=== PATIENT | female | born 1975 | race Asian ===

== ENCOUNTER 2020-01-04 16:39 | Outpatient (REF) | payer MEDICARE, SELFPAY ==
[2020-01-04 19:56] LABS: ALT 11 U/L (14-59); AST 15 U/L (15-37); Albumin 3.5 g/dL (3.4-5.0); Alkaline Phosphatase 89 U/L (46-116); Anion Gap 10.1 mmol/L (3-11); BUN 11 mg/dL (7-18); Bilirubin, Total 0.4 mg/dL (0.2-1.0); CO2 26.9 mmol/L (21.0-32.0); CREATININE 0.78 mg/dL (0.55-1.02); Calcium 8.4 mg/dL (8.5-10.1); Chloride 103 mmol/L (98-107); Glucose 218 mg/dL (74-106); Potassium 3.6 mmol/L (3.5-5.1); Sodium 140 mmol/L (136-145); Total Protein 7.1 g/dL (6.4-8.2)
[2020-01-04 20:08] LABS: Calculated LDL 127 mg/dL (<100); Cholesterol 195 mg/dL (<200); HDL Cholesterol 38 mg/dL (40-60); Triglyceride 152 mg/dL (<150)
== END 2020-01-04 16:59 ==
LOC: NCHCN 16:39
PROVIDERS: PCP Nurse Practitioner Family; Visit Provider Nurse Practitioner Family
DX: I10 Essential (primary) hypertension (principal); Z13.220 Encounter for screening for lipoid disorders
CPT/HCPCS: 80053; 80061

== ENCOUNTER 2020-01-18 20:39 | Emergency (ER) | payer MEDICARE, OTHER, SELFPAY ==
--- NOTE | 2020-01-18 20:42 | ED.GENADUL_ITS ---
Discharge Plan Disposition Patient Disposition: HOME Condition: Stable Discharge Details Chief Complaint: GenMedical Clinical Impression: Encounter for medication refill Primary Care Provider: None,None ED Provider: Lashanda Villagomez Meds and New Rx's Prescriptions: No Action lisinopril 20 mg Tablet 20 mg DAILY RF: 0 Januvia 100 mg Tablet 100 mg DAILY RF: 0 divalproex [Depakote] 250 mg Tablet,Delayed Release (Dr/Ec) 250 mg PO QAM RF: 0 sertraline [Zoloft] 100 mg Tablet 200 mg PO QAM RF: 0 divalproex [Depakote] 500 mg Tablet,Delayed Release (Dr/Ec) 1,000 mg PO QHS RF: 0 risperidone [Risperdal] 2 mg Tablet 2 mg BID RF: 0 amoxapine 100 mg Tablet 100 mg PO DAILY RF: 0 dextroamphetamine-amphetamine [Adderall XR] 10 mg Capsule,Extended Release 24hr 10 mg PO DAILY RF: 0 prazosin 2 mg Capsule 2 mg PO QHS RF: 0 melatonin 10 mg Tablet 10 mg PO QHS RF: 0 Discharge Instructions Additional Instructions: Please stay in touch with any connections regarding insurance. Care management will be in touch regarding follow-up with primary care. If you develop new or worsening symptoms please seek care urgently once again. Medical Decision Making Patient is a 44-year-old female presenting today with request for medication refill. She reports that she moved to the area the beginning of December. Is requesting refill of her amoxapine, Adderall, Depakote, lisinopril, melatonin, prazosin, Risperdal, Zoloft, Januvia. States she last took her med patient's today although she reported to nursing staff a difficult time. She reports she moved here from [place] and that her psychologist advised her she will comes to the emergency department for evaluation of the time for medication refill that we would do so. I reviewed the PDMP and patient last filled her medication on 11/01/2019. However, she reports that she was taking her medication up till today. Patient only received a 30-day supply at that time. Had also been receiving prescriptions for lorazepam while in [place]. This too was last filled last fall. When I approached patient with this information, she advised that her mother had filled the prescription and mailed to her. However, she reports that the medication was actually prescribed to her that the mother simply picked up this prescription from the pharmacy since patient has been residing in [place]. She reports that she continues to be in close contact with her psychologist and seems very frustrated regarding their recent communications. On exam, patient appears very anxious. She is disheveled. Her history is slightly nonsensical and inconsistent. I am hesitant for this reason to fill the patient's medications as I believe it is been longer since she last received them I am concerned starting the medications at full dose. I prefer that this is followed up promptly with primary care may be able to better monitor the patient when starting or stopping these medications. History is also slightly confusing do not feel that refilling these medications based on the patient's history is appropriate at this time. Plan to consult with care management to discuss follow-up options as well as other resources that may be available to be homeless couple. Care management spoke with the patient and her . She did discuss what services are available locally. She has contact information. She did review the patient's chart and saw that she has an appointment on the of this month with Dr. vincent but no note is able to be viewed. Unclear if this patient patient no showed the appointment. Patient will be in contact with [facility] regarding mental health care. She will also follow-up with community connections regarding Ms. Xie. Care management is going to be helping arrange for prompt follow-up with primary care and may discuss medication management and chronic issues further. She is given return precautions. All of their questions and concerns were addressed and they are agreement this plan. HPI General Mode of arrival: ambulatory . Date/Time Provider Initiated Documentation: 01/18/20 20:42 . Limitations to Documentation: no limitations . Information obtained by: patient, family and RN notes reviewed . HPI Narrative: Patient is a 44-year-old female, coming by her , with chief complaint of medication refill. Patient has a lengthy list of medications which she reports she has not had over the past 1 4 hours as she ran out. Patient is currently homeless. Moved here from [place] the first week in December. She reports that she had spoken with her psychologist about her medications and that they advised that she be seen in the emergency department at the time she runs out of her medications as we would provide refills for her. Patient reports she is currently feeling well but is concerned regarding her medication refill and potential symptoms associated with not having these Related Data Home Medications Medication Instructions Recorded Confirmed amoxapine 100 mg PO DAILY 01/18/20 01/18/20 dextroamphetamine-amphetamine 10 mg PO DAILY 01/18/20 01/18/20 [Adderall XR] divalproex [Depakote] 1,000 mg PO QHS 01/18/20 01/18/20 divalproex [Depakote] 250 mg PO QAM 01/18/20 01/18/20 lisinopril 20 mg DAILY 01/18/20 01/18/20 melatonin 10 mg PO QHS 01/18/20 01/18/20 prazosin 2 mg PO QHS 01/18/20 01/18/20 risperidone [Risperdal] 2 mg BID 01/18/20 01/18/20 sertraline [Zoloft] 200 mg PO QAM 01/18/20 01/18/20 sitagliptin [Januvia] 100 mg DAILY 01/18/20 01/18/20 Allergies Allergy/AdvReac Type Severity Reaction Status Date / Time amoxicillin Allergy Nausea Unverified 01/18/20 21:06 bee pollen Allergy Hives Unverified 01/18/20 21:06 fluoxetine [From Prozac] Allergy Nausea Unverified 01/18/20 21:06 hazelnut Allergy Hives Unverified 01/18/20 21:06 abelox Allergy Hives Uncoded 01/18/20 21:06 Review of Systems Constitutional Constitutional: Reports as per HPI, Denies chills, Denies fatigue, Denies fever(s), Denies headache(s) and Denies weakness Eyes Eyes: Denies change in vision ENT Ears, Nose, Mouth, and Throat: Denies headache(s) Cardiovascular Cardiovascular: Reports as per HPI, Denies chest pain, Denies lightheadedness, Denies dyspnea and Denies dyspnea on exertion Respiratory Respiratory: Reports as per HPI, Denies cough, Denies dyspnea and Denies dyspnea on exertion Gastrointestinal Gastrointestinal: Reports as per HPI, Denies abdominal pain, Denies change in bowel habits, Denies nausea and Denies vomiting Musculoskeletal Musculoskeletal: Denies abnormal gait Integumentary/Breasts Skin/Breast: Reports as per HPI and Denies rash Neurologic Neurologic: Denies abnormal movements, Denies abnormal speech, Denies abnormal gait, Denies headache(s), Denies paresthesias and Denies weakness Endocrine Endocrine: Denies fatigue [facility] Social History Smoking/Tobacco Use Status: Current every day Tobacco Type: cigarettes Alcohol Intake: never Substance use type: does not use Do you feel safe at home: Yes Do you feel safe in your relationship?: Yes Exam Const General: cooperative, healthy appearing, comfortable, no acute distress, well developed, well groomed and anxious Nutritional Appearance: average body habitus and well nourished Orientation: alert and awake Eyes General: appearance normal, both eyes and all related structures Resp Effort & Inspection: normal respiratory effort, able to speak in complete sentences and no respiratory distress Cardio Rate: regular rate Rhythm: regular rhythm Skin General skin exam: no rashes or lesions noted Trauma: no lacerations or abrasions Neuro General: alert and awake Cognition: normal cognition Speech: speech normal Gait: normal gait Psych Appearance: disheveled Mental Status: mental status grossly normal Speech and Movement: agitated Mood: angry and irritable mood Affect: anxious affect
[2020-01-18 20:51] VITALS: BP 154/77; PULSE 120; RESP 16; TEMP 36.3; O2SAT 95
[2020-01-18 21:02] VITALS: RESP 16
--- NOTE | 2020-01-18 21:33 | PDOC.ERCMPRO ---
- If Service Date Differs Date of service: 01/18/20 Time of Service: 21:33 Care Management Progress Note CM meets with Cecilia accompanied by ED provider. Cecilia reports she is out of her psych meds and is in need of refills. She states she recently moved to [place] from [place] and needs to establish care with a psychiatrist in [place]. CM was going to make a referral to the tele doc on Cecilia's behalf but then realized that Cecilia may have been seen at the [facility]. Cecilia has already left the hospital, so CM will contact the Health Center tomorrow to verify if Cecilia established care with them. If so, I will request that her care be transferred to the [facility], as Cecilia is no longer residing in [place] and transportation is an issue. Cecilia has Medicare and [place] Medicaid for health insurance. She states she is already working with [facility] on getting [place] Medicaid.
== END 2020-01-18 21:35 | disposition home or self-care (01) ==
PROVIDERS: Emergency Provider Physician Assistant
DX: Z76.0 Encounter for issue of repeat prescription (principal); Z59.0 Homelessness
CPT/HCPCS: 99283

== ENCOUNTER 2020-01-30 21:34 | Emergency (ER) | payer MEDICARE, OTHER, SELFPAY ==
[2020-01-30 21:42] VITALS: BP 137/80; PULSE 119; RESP 16; TEMP 36.2; O2SAT 95
--- NOTE | 2020-01-30 21:45 | DI.RAD_ITS ---
EXAM: XR CHEST 2V PA AND LATERAL CLINICAL HISTORY: COUGH TECHNIQUE: 2D digital imaging was performed. COMPARISON: No exams were available for comparison FINDINGS: MEDIASTINUM: Normal. HEART: Normal. PULMONARY VASCULATURE: Normal. LUNGS: There appears to be a fine reticular infiltrate distributed diffusely throughout the lungs. N o focal consolidating infiltrates are seen. PLEURAL SPACE: No pleural effusion or pneumothorax. BONE:Old rib fractures. OTHER FINDINGS:Normal. IMPRESSION: Question of a diffuse mild interstitial process. This may represent infection or inflammatory proces s. Please correlate clinically. DATA REPOSITORY: RADIATION DOSE DELIVERED:
--- NOTE | 2020-01-30 21:53 | ED.GENADUL_ITS ---
Discharge Plan Disposition Patient Disposition: HOME Condition: Stable Discharge Details Chief Complaint: GenMedical Clinical Impression: Cough Primary Care Provider: Cecilia Duran ED Provider: Uriah Blue Home Meds and New Rx's Prescriptions: New doxycycline hyclate 100 mg tablet 100 mg PO BID Qty: 14 RF: 0 Continued lisinopril 20 mg Tablet 20 mg DAILY RF: 0 Januvia 100 mg Tablet 100 mg DAILY RF: 0 divalproex [Depakote] 250 mg Tablet,Delayed Release (Dr/Ec) 250 mg PO QAM RF: 0 sertraline [Zoloft] 100 mg Tablet 200 mg PO QAM RF: 0 divalproex [Depakote] 500 mg Tablet,Delayed Release (Dr/Ec) 1,000 mg PO QHS RF: 0 risperidone [Risperdal] 2 mg Tablet 2 mg BID RF: 0 amoxapine 100 mg Tablet 100 mg PO DAILY RF: 0 dextroamphetamine-amphetamine [Adderall XR] 10 mg Capsule,Extended Release 24hr 10 mg PO DAILY RF: 0 prazosin 2 mg Capsule 2 mg PO QHS RF: 0 melatonin 10 mg Tablet 10 mg PO QHS RF: 0 Discharge Instructions Instructions: Acute Cough (ED) Additional Instructions: follow up as scheduled with your primary care provider if you feel more ill, have worsening trouble breathing or high fevers return to the emergency department Medical Decision Making 44 yo female with hx of DM, copd, who moved here from [place] 2-3 weeks ago and is seeing pcp for the first time in this area on Friday comes in with cc of cough with streaking of blood. She has not had any fevers, chest pain, travel overseas, known sick contacts, and is speaking in full sentences in no distress. She does smoke, denies alcohol or drug use. Has no leg edema or calf tenderness. I suspect the streaking blood is from bronchitis or pneumonia given the productive cough. She declines blood work at this time and has capacity to make her own decisions. Feel it is unlikely PE but given hemoptysis can't exclude this with PERC.Will obtain xray to eval for pna. POC glucose is 380 likely being off her noninsulin DM meds. Given she is seeing pcp friday feel she can be restarted on her DM meds at that time, no tachypnea so doubt dka at this time. pt sleeping on reassessment and stable. Xray unremarkable. Given the blood in her sputum will treat with doxy and given one time dose of dexamethasone. Will d/c, advised to f/u with pcp and return precautions given Differential Diagnosis Differential Diagnosis: bronchitis, pneumonia, t2dm Imaging Data Radiologic Study: Attestation: I personally reviewed and interpreted this imaging study as follows: Imaging: X-Ray My impression: no acute findings HPI General Mode of arrival: ambulatory . Date/Time Provider Initiated Documentation: 01/30/20 21:47 . Limitations to Documentation: no limitations . Information obtained by: patient . History of Present Illness 44 year old F presents to the emergency department with the chief complaint of cough, described as mild, Patient started experiencing this day(s) (4) and it has been constant. No relieving factors improve symptom(s), No exacerbating factors reported . Patient did receive the following treatments prior to arrival, none Related Data Home Medications Medication Instructions Recorded Confirmed Januvia 100 mg DAILY 01/18/20 01/18/20 amoxapine 100 mg PO DAILY 01/18/20 01/18/20 dextroamphetamine-amphetamine 10 mg PO DAILY 01/18/20 01/18/20 [Adderall XR] divalproex [Depakote] 1,000 mg PO QHS 01/18/20 01/18/20 divalproex [Depakote] 250 mg PO QAM 01/18/20 01/18/20 lisinopril 20 mg DAILY 01/18/20 01/18/20 melatonin 10 mg PO QHS 01/18/20 01/18/20 prazosin 2 mg PO QHS 01/18/20 01/18/20 risperidone [Risperdal] 2 mg BID 01/18/20 01/18/20 sertraline [Zoloft] 200 mg PO QAM 01/18/20 01/18/20 doxycycline hyclate 100 mg PO BID #14 tab 01/30/20 Previous Rx's Medication Instructions Recorded doxycycline hyclate 100 mg PO BID #14 tab 01/30/20 Allergies Allergy/AdvReac Type Severity Reaction Status Date / Time amoxicillin Allergy Nausea Unverified 01/18/20 21:06 bee pollen Allergy Hives Unverified 01/18/20 21:06 fluoxetine [From Prozac] Allergy Nausea Unverified 01/18/20 21:06 hazelnut Allergy Hives Unverified 01/18/20 21:06 abelox Allergy Hives Uncoded 01/18/20 21:06 General Stated Complaint: GenMedical ZACK: 3 Review of Systems All systems reviewed & are unremarkable except as noted in HPI and below Constitutional Constitutional: Denies chills and Denies fever(s) Cardiovascular Cardiovascular: Denies chest pain and Denies dyspnea Respiratory Respiratory: Denies dyspnea Gastrointestinal Gastrointestinal: Denies abdominal pain, Denies nausea and Denies vomiting Musculoskeletal Musculoskeletal: Denies joint swelling PFSH Social History Smoking/Tobacco Use Status: Current every day Tobacco Type: cigarettes Alcohol Intake: never Substance use type: does not use Do you feel safe at home: Yes Do you feel safe in your relationship?: Yes Exam Const General: no acute distress Orientation: alert HENMT Head: normal to inspection Ears: external ears normal General nose exam: external nose normal Mouth: moist mucous membranes Eyes General: appearance normal, both eyes and all related structures Neck Neck: normal visual inspection Resp Effort & Inspection: normal respiratory effort and able to speak in complete sentences Cardio Rate: regular rate Skin General skin exam: no rashes or lesions noted Neuro General: alert and oriented x3 Extrem General: normal to inspection Psych Mental Status: mental status grossly normal Course Vital Signs Vital signs: Vital Signs Temperature 36.2 C L 01/30/20 21:42 Pulse 119 H 01/30/20 21:42 Respiratory Rate 16 01/30/20 21:42 Blood Pressure 137/80 01/30/20 21:42 Pulse Oximetry 95 01/30/20 21:42 Temperature 36.2 C L 01/30/20 21:42 Temperature Source Temporal Artery Scan 01/30/20 21:42 Pulse 119 H 01/30/20 21:42 Respiratory Rate 16 01/30/20 21:42 Blood Pressure 137/80 01/30/20 21:42 Blood Pressure Position Sitting 01/30/20 21:42 Pulse Oximetry 95 01/30/20 21:42 Oxygen Delivery Method Room Air 01/30/20 21:42 Oxygen Flow Rate 0 01/30/20 21:42
[2020-01-30] MEDS: Inhaler, Assist Device 1 EACH MC (22:43)
[2020-01-30] MEDS: Albuterol HFA 8 GM 60 PUFF INH IH (22:43)
[2020-01-30] MEDS: Dexamethasone 10 MG/ML VIAL PO (22:45)
[2020-01-30] MEDS: Doxycycline Hyclate 100 MG CAP PO (22:46)
--- NOTE | 2020-01-30 23:12 | DI.VRAD_ITS ---
PROCEDURE INFORMATION: Exam: XR Chest, 2 Views Exam date and time: 01/30/2020 10:10 PM Age: 44 years old Clinical indication: Cough TECHNIQUE: Imaging protocol: XR of the chest Views: 2 views. COMPARISON: No relevant prior studies available. FINDINGS: Lungs: Unremarkable. No consolidation. Pleural space: Unremarkable. No pleural effusion. No pneumothorax. Heart/Mediastinum: Unremarkable. No cardiomegaly. Bones/joints: Chronic fracture deformities of the left rib. IMPRESSION: No acute findings. Dictated and Authenticated by: Uriah Zarate MD. Ordering:YOLANDA Kruse MD
== END 2020-01-30 22:55 | disposition home or self-care (01) ==
PROVIDERS: Emergency Provider Emergency Medicine; PCP Nurse Practitioner
DX: R04.2 Hemoptysis (principal); F17.210 Nicotine dependence, cigarettes, uncomplicated; E11.65 Type 2 diabetes mellitus with hyperglycemia; Z79.84 Long term (current) use of oral hypoglycemic drugs; J44.9 Chronic obstructive pulmonary disease, unspecified
CPT/HCPCS: 99283; 71046; J1100

== ENCOUNTER 2020-04-11 17:47 | Outpatient (REF) | payer OTHER, SELFPAY ==
[2020-04-11 14:51] LABS: Abs Immature Grans 0.05 k/cumm (0.0-0.09); Absolute Basophil Count 0.01 k/cumm (0.0-0.2); Absolute Eosinophil Count 0.17 k/cumm (0.0-0.7); Absolute Monocyte Count 0.58 k/cumm (0.11-0.7); Basophils % 0.1; Eosinophils % 1.9; HCT 39.3 % (36.0-46.0); HGB 12.4 g/dL (12.0-15.5); Immature Grans % 0.6 %; Lymphocytes % 26.9; Mean Corp. HGB Concentration 31.6 g/dL (32.0-36.0); Mean Corpuscular Hemoglobin 26.8 pg (27.0-33.0); Mean Corpuscular Volume 84.9 fL (80-95); Mean Platelet Volume 9.8 fL (8.0-11.0); Monocytes % 6.5; Platelet Count 276 x1000/uL (130-400); RBC 4.63 m/cumm (4.00-5.20); RBC Distribution Width 15.3 % (11.7-14.6); White Blood Cell Count 8.91 k/cumm (4.4-10.8)
[2020-04-11 15:12] LABS: VALPROIC ACID 89.9 ug/mL (50-100)
[2020-04-11 15:18] LABS: Hemoglobin A1C 9.7 % (3.8-5.6)
== END 2020-04-11 18:07 ==
LOC: NCHCN 17:47
PROVIDERS: PCP Nurse Practitioner; Visit Provider Nurse Practitioner
DX: E11.9 Type 2 diabetes mellitus without complications (principal); F31.9 Bipolar disorder, unspecified; Z51.81 Encounter for therapeutic drug level monitoring
CPT/HCPCS: 80164; 83036; 85025

== ENCOUNTER 2022-01-08 18:04 | Outpatient (REF) | payer MEDICARE, SELFPAY ==
[2022-01-08 21:10] LABS: HCT 43.8 % (36.0-46.0); HGB 13.8 g/dL (11.2-15.7); MCH 27.8 pg (27.0-33.0); MCHC 31.5 % (32.0-36.0); MCV 88.1 fL (80-95); MPV 10.1 fL (8.0-11.0); Platelet Count 260 10^3/uL (130-400); RBC 4.97 10^6/uL (3.93-5.22); RDW 15.9 % (11.7-14.6); RDW-SD 51.6 fL; WBC 11.49 10^3/uL (4.4-10.8)
[2022-01-08 21:30] LABS: VALPROIC ACID 86.2 ug/mL
[2022-01-08 21:38] LABS: ALT 17 U/L (14-59); AST 9 U/L (15-37); Albumin 3.3 g/dL (3.4-5.0); Alkaline Phosphatase 109 U/L (46-116); Anion Gap 8.3 mmol/L (3-11); BUN 12 mg/dL (7-18); Bilirubin, Total 0.2 mg/dL (0.2-1.0); CO2 30.7 mmol/L (21.0-32.0); CREATININE 0.6 mg/dL (0.55-1.02); Calcium 9.4 mg/dL (8.5-10.1); Calculated LDL 140 mg/dL (<100); Chloride 99 mmol/L (98-107); Cholesterol 212 mg/dL (<200); Glucose 194 mg/dL (74-106); HDL Cholesterol 53 mg/dL (40-60); Potassium 4.7 mmol/L (3.5-5.1); Sodium 138 mmol/L (136-145); TSH 1.93 uIU/mL (0.36-3.74); Total Protein 7.8 g/dL (6.4-8.2); Triglyceride 95 mg/dL (<150)
[2022-01-08 22:05] LABS: Bilirubin, Direct 0.1 mg/dL (0.0-0.2)
[2022-01-10 05:36] LABS: Vitamin D 25 Total < 5 ng/mL (30-100)
== END 2022-01-08 18:05 | disposition home or self-care (01) ==
LOC: LBN 18:04
PROVIDERS: PCP Nurse Practitioner; Visit Provider Nurse Practitioner Family
DX: E11.9 Type 2 diabetes mellitus without complications (principal); I10 Essential (primary) hypertension; E78.5 Hyperlipidemia, unspecified; F25.9 Schizoaffective disorder, unspecified; Z51.81 Encounter for therapeutic drug level monitoring; R06.02 Shortness of breath; E66.8 Other obesity
CPT/HCPCS: 80053; 80061; 80076; 82306; 85027; 80164; 83036; 84443

== ENCOUNTER 2022-02-01 02:04 | Outpatient (CLI) | payer MEDICARE, SELFPAY ==
--- NOTE | 2022-02-01 13:10 | DI.RAD_ITS ---
Exam(s) XR CHEST 2V PA LATERAL EXAM: XR CHEST 2V PA LATERAL CLINICAL HISTORY: SOB, R06.02; CHRONIC COUGH, R05.3; TOBACCO USE, Z72.0. TECHNIQUE: 2D digital imaging was performed. COMPARISON: CR,XR XR CHEST 2V PA LATERAL from 01/30/2020 FINDINGS: Heart size is normal. The mediastinum is not widened. Lungs are clear. No infiltrates nor pleural effusions. Again noted is a healed left rib fracture. IMPRESSION: No acute pulmonary findings. DATA REPOSITORY: RADIATION DOSE DELIVERED:
== END 2022-02-01 02:24 ==
LOC: DI 02:05
PROVIDERS: PCP Nurse Practitioner; Visit Provider Nurse Practitioner Family
DX: R06.02 Shortness of breath (principal); R05.3 Chronic cough
CPT/HCPCS: 71046

== ENCOUNTER 2022-03-04 20:33 | Outpatient (REF) | payer MEDICARE, SELFPAY ==
[2022-03-04 17:29] LABS: COMMENT (LAB VIEW ONLY) 193.94 mg/dL
[2022-03-04 17:35] LABS: ALT 16 U/L (14-59); AST 15 U/L (15-37); Albumin 3.3 g/dL (3.4-5.0); Alkaline Phosphatase 110 U/L (46-116); Anion Gap 4.2 mmol/L (3-11); BUN 11 mg/dL (7-18); Bilirubin, Total 0.4 mg/dL (0.2-1.0); CO2 31.8 mmol/L (21.0-32.0); CREATININE 0.7 mg/dL (0.55-1.02); Calcium 8.9 mg/dL (8.5-10.1); Chloride 98 mmol/L (98-107); Glucose 237 mg/dL (74-106); PHOSPHORUS 3.8 mg/dL (2.6-4.7); Potassium 4.8 mmol/L (3.5-5.1); Sodium 134 mmol/L (136-145); Total Protein 7.8 g/dL (6.4-8.2)
[2022-03-04 17:54] LABS: Vitamin D 25 Total < 5 ng/mL (30-100)
[2022-03-06 09:51] LABS: Parathyroid Hormone,Intact 80 pg/mL (19-88)
[2022-03-06 20:27] LABS: Tissue Transglutaminase Ab IgA <1.2 U/mL
== END 2022-03-04 20:34 | disposition home or self-care (01) ==
LOC: LBN 20:33
PROVIDERS: PCP Nurse Practitioner; Visit Provider Nurse Practitioner Family
DX: E55.9 Vitamin D deficiency, unspecified (principal); E11.9 Type 2 diabetes mellitus without complications; F41.8 Other specified anxiety disorders
CPT/HCPCS: 80053; 82306; 84075; 84080; 82043; 82570; 83516; 83970; 84100

== ENCOUNTER 2022-05-08 15:54 | Outpatient (REF) | payer MEDICARE, MEDICAID, SELFPAY ==
[2022-05-08 14:53] LABS: ALT 17 U/L (14-59); AST 16 U/L (15-37); Albumin 3.2 g/dL (3.4-5.0); Alkaline Phosphatase 88 U/L (46-116); Anion Gap 8.7 mmol/L (3-11); BUN 14 mg/dL (7-18); Bilirubin, Total 0.3 mg/dL (0.2-1.0); CO2 29.3 mmol/L (21.0-32.0); CREATININE 0.8 mg/dL (0.55-1.02); Calcium 9.1 mg/dL (8.5-10.1); Chloride 100 mmol/L (98-107); Glucose 152 mg/dL (74-106); PHOSPHORUS 4.1 mg/dL (2.6-4.7); Potassium 4.5 mmol/L (3.5-5.1); Sodium 138 mmol/L (136-145)
[2022-05-08 16:11] LABS: COMMENT (LAB VIEW ONLY) 135.63 mg/dL
[2022-05-08 16:14] LABS: Microalb ug/mg Crea 422.3 ug/mg Cr
[2022-05-09 09:23] LABS: Parathyroid Hormone,Intact 26 pg/mL (19-88)
== END 2022-05-08 15:55 | disposition home or self-care (01) ==
LOC: NCHCN 15:54
PROVIDERS: PCP Nurse Practitioner; Visit Provider Nurse Practitioner Family
DX: E21.5 Disorder of parathyroid gland, unspecified (principal); E11.9 Type 2 diabetes mellitus without complications; I10 Essential (primary) hypertension; E78.5 Hyperlipidemia, unspecified; E55.9 Vitamin D deficiency, unspecified; Z51.81 Encounter for therapeutic drug level monitoring; Z00.00 Encounter for general adult medical examination without abnormal findings
CPT/HCPCS: 80053; 82043; 82570; 83970; 84100

== ENCOUNTER 2022-06-19 17:19 | Outpatient (REF) | payer MEDICARE, MEDICAID, SELFPAY ==
[2022-06-19 15:41] LABS: Hemoglobin A1C 7.3 % (<5.7)
[2022-06-19 15:53] LABS: ALT 16 U/L (14-59); AST 15 U/L (15-37); Albumin 3.6 g/dL (3.4-5.0); Alkaline Phosphatase 82 U/L (46-116); Anion Gap 11.6 mmol/L (3-11); BUN 11 mg/dL (7-18); Bilirubin, Total 0.4 mg/dL (0.2-1.0); CO2 27.4 mmol/L (21.0-32.0); CREATININE 0.8 mg/dL (0.55-1.02); Calcium 9.8 mg/dL (8.5-10.1); Chloride 100 mmol/L (98-107); Glucose 126 mg/dL (74-106); Potassium 4.3 mmol/L (3.5-5.1); Sodium 139 mmol/L (136-145); Total Protein 7.9 g/dL (6.4-8.2)
== END 2022-06-19 17:20 | disposition home or self-care (01) ==
LOC: NCHCN 17:19
PROVIDERS: PCP Nurse Practitioner; Visit Provider Nurse Practitioner Family
DX: E11.9 Type 2 diabetes mellitus without complications (principal); I10 Essential (primary) hypertension; E55.9 Vitamin D deficiency, unspecified
CPT/HCPCS: 80053; 82306; 83036

== ENCOUNTER 2022-10-10 11:49 | Inpatient (IN) | payer MEDICARE, MEDICAID, SELFPAY ==
[2022-10-10] VITALS (36 sets, daily range): BP systolic 132–181; BP diastolic 68–94; PULSE 87–119; RESP 4–28; TEMP 36.8–37.3; O2SAT 68–100
--- NOTE | 2022-10-10 11:45 | DI.RAD_ITS ---
Exam(s) XR PORTABLE CHEST AP EXAM: XR PORTABLE CHEST AP CLINICAL HISTORY: cough, hypoxia TECHNIQUE: COMPARISON: CR XR CHEST 2V PA LATERAL from 02/01/2022 FINDINGS: The heart is not enlarged. There appear to be diffuse bilateral intrapulmonary infiltrates, not pres ent on a prior chest radiograph of January 2022. These are more prominent in the right lung than the l eft. The findings as described are suggestive of acute multifocal pneumonitis. No pleural effusion seen. Appropriate follow-up films requested. IMPRESSION: The appearance is suggestive of multifocal pneumonitis . RADIATION DOSE DELIVERED: Total DLP
--- NOTE | 2022-10-10 12:00 | W.ED.GENAD ---
Discharge Plan Disposition Patient Disposition: Admit to [facility] Condition: Serious Discharge Details Chief Complaint: RespSymp Clinical Impression: Acute pneumonia, Acute asthma exacerbation, Hypoxia Primary Care Provider: Cecilia Duran ED Provider: Ernst Andrade Home Meds and New Rx's Prescriptions: No Action lisinopril 20 mg Tablet 20 mg DAILY sertraline [Zoloft] 100 mg Tablet 200 mg PO QAM divalproex [Depakote] 500 mg Tablet,Delayed Release (Dr/Ec) 1,000 mg PO QHS risperidone [Risperdal] 2 mg Tablet 2 mg BID Rx Instructions: take 2 mg in AM, 4 mg in PM amoxapine 100 mg Tablet 100 mg PO DAILY dextroamphetamine-amphetamine [Adderall XR] 10 mg Capsule,Extended Release 24hr 20 mg PO DAILY prazosin 2 mg Capsule 3 mg PO QHS melatonin 10 mg Tablet 10 mg PO QHS Medical Decision Making 1200 --46-year-old female with history of asthma, ongoing smoker, here with severe shortness of breath and cough over the past week. Patient in respiratory distress on arrival. Respiratory therapy has been consulted and will provide neb treatments. I am ordering 3 DuoNeb treatment and initiating Solu-Medrol. I suspect she has acute exacerbation of asthma COPD. Considered pneumonia. Will obtain chest x-ray, blood cultures and lactate. 1400 -- Labs reviewed and mild leukocytosis noted. Normal lactate. Chest x-ray interpreted by radiology: Bilateral pulmonary infiltrates right greater than left. Plan to treat for pneumonia with cefepime 2 g azithromycin 500 mg IV. Atif notes patient had significant improvement after 3 neb treatments. Patient saturating 94% on 3 L in no respiratory distress. Patient does desat off O2. Hemodynamically stable. Plan to admit to hospitalist service. 1425 -- I spoke with Dr. Butler, discussed ED presentation and course, she will admit the patient. Care transition at time of admission. Sign Out No HPI General Mode of arrival: EMS. Date/Time Provider Initiated Documentation: 10/10/22 11:56. Limitations to Documentation: no limitations. Information obtained by: patient and EMS. HPI Narrative: 46-year-old female with history of asthma, smoker, presents with chief complaint of shortness of breath. Patient notes shortness of breath and coughing over the past 1 week. Cough is productive of yellow sputum with some blood tinge intermittently. Shortness of breath is severe and constant. She has no albuterol at home. No associated chest pain. Related Data Home Medications Medication Instructions Recorded Confirmed amoxapine 100 mg tablet 100 mg PO DAILY 01/18/20 10/10/22 dextroamphetamine-amphetamine ER 20 mg PO DAILY 01/18/20 10/10/22 10 mg 24hr capsule,extend release (Adderall XR) divalproex 500 mg tablet,delayed 1,000 mg PO QHS 01/18/20 10/10/22 release (Depakote) lisinopril 20 mg tablet 20 mg DAILY 01/18/20 10/10/22 melatonin 10 mg tablet 10 mg PO QHS 01/18/20 10/10/22 prazosin 2 mg capsule 3 mg PO QHS 01/18/20 10/10/22 risperidone 2 mg tablet (Risperdal) 2 mg BID 01/18/20 10/10/22 sertraline 100 mg tablet (Zoloft) 200 mg PO QAM 01/18/20 10/10/22 Allergies Allergy/AdvReac Type Severity Reaction Status Date / Time amoxicillin Allergy Nausea Unverified 10/10/22 11:57 bee pollen Allergy Hives Unverified 10/10/22 11:57 fluoxetine [From Prozac] Allergy Nausea Unverified 10/10/22 11:57 hazelnut Allergy Hives Unverified 10/10/22 11:57 abelox Allergy Hives Uncoded 10/10/22 11:57 General Stated Complaint: RespSymp ZACK: 3 Review of Systems All systems reviewed & are unremarkable except as noted in HPI and below Constitutional Constitutional: Denies fever(s) Cardiovascular Cardiovascular: Reports dyspnea Respiratory Respiratory: Reports cough and Reports dyspnea PFSH All Active Problems (Updated 10/10/22 @ 14:28 by Ernst Andrade MD) Encounter for medication refill (Acute) Acute pneumonia (Acute) Acute asthma exacerbation (Acute) Hypoxia (Acute) Social History Smoking/Tobacco Use Status: Current every day Tobacco Type: cigarettes Smoking risk assessment performed?: Yes Alcohol Intake: never Substance use type: does not use Do you feel safe at home: Yes Do you feel safe in your relationship?: Yes Exam Const General: cooperative and in distress respiratory HENMT Mouth: moist mucous membranes Eyes Conjunctivae: normal conjunctivae Sclera: normal sclerae Neck Neck: trachea midline and supple Resp Effort & Inspection: labored and respiratory distress Auscultation: no rhonchi and no wheezes Cardio Rate: tachycardic Rhythm: regular rhythm GI Palpation: soft, not firm, no guarding, no masses, not rigid and nontender Skin General skin exam: no rashes or lesions noted Neuro General: patient alert, patient awake, patient oriented x3 and tone normal Extrem General: no calf tenderness and no edema Psych Appearance: grossly normal Mental Status: mental status grossly normal Course Vital Signs Vital signs: Vital Signs Temperature 37.1 C 10/10/22 11:54 Pulse 101 H 10/10/22 11:54 Respiratory Rate 20 10/10/22 11:54 Blood Pressure 163/94 H 10/10/22 11:54 Pulse Oximetry 97 10/10/22 11:54 Temperature 37.1 C 10/10/22 11:54 Temperature Source Temporal Artery Scan 10/10/22 11:54 Pulse 101 H 10/10/22 11:54 Respiratory Rate 20 10/10/22 11:54 Respiratory Effort Labored 10/10/22 11:56 Blood Pressure 163/94 H 10/10/22 11:54 Blood Pressure Position Sitting 10/10/22 11:54 Pulse Oximetry 97 10/10/22 11:54 Oxygen Delivery Method Nasal Cannula 10/10/22 11:54 Oxygen Flow Rate 3 10/10/22 11:54 Pain Level 8 10/10/22 11:54 Lab/Test Results Lab/Test Results: 10/10/22 11:57 Blood Blood Culture - Pending 10/10/22 11:57 Blood Blood Culture - Pending
[2022-10-10] MEDS: Albuterol/Ipratropium 3 ML UPD VIAL UPD ×4 (12:07→17:26)
[2022-10-10 12:17] LABS: Lactate 0.8 mmol/L (0.6-1.4)
[2022-10-10] MEDS: MAGNESIUM SULFATE 2 GM/50 ML BAG IVPB (12:19)
[2022-10-10] MEDS: methylPREDNISolone SUCC 125 MG VIAL IVP (12:20)
[2022-10-10 12:21] LABS: HCT 35.3 % (36.0-46.0); HGB 11.3 g/dL (11.2-15.7); Lymphocytes % 24.3; MCH 28.3 pg (27.0-33.0); MCV 88 fL (80-95); MPV 9.6 fL (8.0-11.0); Monocytes % 4.8; Neutrophils % 68.2; Platelet Count 250 10^3/uL (130-400); RDW 16.8 % (11.7-14.6); RDW-SD 54.1 fL; WBC 11.09 10^3/uL (4.4-10.8)
[2022-10-10 12:22] LABS: Abs Immature Grans 0.16 10^3/uL (0.0-0.06); Absolute Basophil Count 0.03 10^3/uL (0.0-0.2); Absolute Eosinophil Count 0.11 10^3/uL (0.0-0.7); Absolute Lymphocyte Count 2.69 10^3/uL (1.2-3.4); Absolute Monocyte Count 0.53 10^3/uL (0.1-0.8); Basophils % 0.3; Immature Grans % 1.4; Nucleated RBC 0.6 % (0.0-0.3)
[2022-10-10 12:23] LABS: Absolute Neutrophil Count 7.56 10^3/uL (1.2-6.7)
[2022-10-10 12:35] LABS: ALT 11 U/L (14-59); AST 30 U/L (15-37); Albumin 2.7 g/dL (3.4-5.0); Alkaline Phosphatase 70 U/L (46-116); Anion Gap 5.6 mmol/L (3-11); BUN 12 mg/dL (7-18); Bilirubin, Total 0.8 mg/dL (0.2-1.0); CO2 32.4 mmol/L (21.0-32.0); CREATININE 0.6 mg/dL (0.55-1.02); Calcium 8.7 mg/dL (8.5-10.1); Chloride 100 mmol/L (98-107); Estimated GFR 111.34 (mL/min/1.73m2); Glucose 146 mg/dL (74-106); Potassium 4.5 mmol/L (3.5-5.1); Sodium 138 mmol/L (136-145); Total Protein 7.5 g/dL (6.4-8.2)
[2022-10-10 13:00] LABS: COVID-19 PCR Negative (Negative); Influenza A PCR Negative (Negative); Influenza B PCR Negative (Negative); RSV PCR Negative (Negative)
[2022-10-10 13:06] LABS: Source Nasopharynx
[2022-10-10] MEDS: CEFEPIME 2 GM in Normal Saline 100 ML IVPB ×2 (14:11→20:52)
[2022-10-10] MEDS: AZITHROMYCIN 500 MG in Normal Saline 250 ML 250 MG IVPB (14:26)
[2022-10-10 16:22] LABS: Lab Add On Test DONE
--- NOTE | 2022-10-10 16:57 | W.PM.HP.N ---
Date of service: 10/10/22 Time of Service: 16:57 Assessment and Plan Assessment and plan (1) Acute respiratory failure with hypoxia: Status: Acute Assessment and plan: Due to pneumonia (present on admission) + COPD/asthma exacerbation. Treat with empiric antibiotics, steroids, scheduled + prn nebs, antitussives. Obtain sputum culture. Check urine for legionella and strep antigens and sputum for mycoplasma. Encourage IS and acapella. Consult pulmonology. (2) Acute exacerbation of COPD with asthma: Status: Acute Assessment and plan: As above (3) Acute pneumonia: Status: Acute Assessment and plan: As above (4) Non-insulin dependent diabetes mellitus: Assessment and plan: Check A1C. Clarify medication list - appears to be incomplete. Cover with SSI here. Anticipate steroid-induced hyperglycemia (5) Tobacco abuse: Status: Acute Assessment and plan: Encourage to quit. Provide nicotine replacement (6) DVT prophylaxis: Status: Acute Assessment and plan: sc lovenox (7) Discharge planning issues: Status: Acute Assessment and plan: Full code History of Present Illness History of Present Illness Chief Complaint: shortness of breath Narrative: Ms Boudreaux is a 46 year old female with PMHx of COPD vs asthma, hypertension, obesity with BMI of 37.4 kg/m2, tobacco abuse, who presented to [facility] ED today c/o progressive shortness of breath for 1 week. She has had a productive cough with yellow blood tinged sputum. Denies fevers, endorses runny nose, sore throat, nausea (chronic), diarrhea. She was in respiratory distress on arrival and required 3L of O2 to saturate in the 90s. She desaturated to the 60s off of O2, per chart review. She tested negative for COVID-19 by PCR. She improved with nebulizer therapy. Her ER workup revealed that she had a multifocal pneumonitis. She was initiated on steroids, azithromycin, and cefepime. Hospitalist admission was requested. Review of Systems Narrative: Additionally, the patient denies SI. All systems reviewed & are unremarkable except as noted in HPI and below PFSH All Active Problems (Updated 10/10/22 @ 18:52 by Arleth Butler MD) Discharge planning issues (Acute) DVT prophylaxis (Acute) Tobacco abuse (Acute) Acute respiratory failure with hypoxia (Acute) Acute exacerbation of COPD with asthma (Acute) Encounter for medication refill (Acute) Acute pneumonia (Acute) Acute asthma exacerbation (Acute) Hypoxia (Acute) Medical History (Updated 10/10/22 @ 18:52 by Arleth Butler MD) ADHD Anxiety Bipolar disorder H/O suicide attempt Hypertension Non-insulin dependent diabetes mellitus Obesity (BMI 30.0-34.9) Surgical History (Updated 10/10/22 @ 17:58 by Arleth Butler MD) S/P cholecystectomy Status post bilateral salpingectomy Family History (Updated 10/10/22 @ 17:58 by Arleth Butler MD) Other Adopted Social History Smoking/Tobacco Use Status: Current every day Tobacco Type: cigarettes Smoking risk assessment performed?: Yes Alcohol Intake: never Substance use type: does not use Do you feel safe at home: Yes Do you feel safe in your relationship?: Yes Meds Allergies and Home Medications Allergies Allergy/AdvReac Type Severity Reaction Status Date / Time amoxicillin Allergy Nausea Unverified 10/10/22 11:57 bee pollen Allergy Hives Unverified 10/10/22 11:57 fluoxetine [From Prozac] Allergy Nausea Unverified 10/10/22 11:57 hazelnut Allergy Hives Unverified 10/10/22 11:57 abelox Allergy Hives Uncoded 10/10/22 11:57 Home Medications Medication Instructions Recorded Confirmed Type amoxapine 100 mg tablet 100 mg PO DAILY 01/18/20 10/10/22 History dextroamphetamine-amphetamine ER 20 mg PO DAILY 01/18/20 10/10/22 History 10 mg 24hr capsule,extend release (Adderall XR) divalproex 500 mg tablet,delayed 1,000 mg PO QHS 01/18/20 10/10/22 History release (Depakote) lisinopril 20 mg tablet 20 mg DAILY 01/18/20 10/10/22 History melatonin 10 mg tablet 10 mg PO QHS 01/18/20 10/10/22 History prazosin 2 mg capsule 3 mg PO QHS 01/18/20 10/10/22 History risperidone 2 mg tablet (Risperdal) 2 mg BID 01/18/20 10/10/22 History sertraline 100 mg tablet (Zoloft) 200 mg PO QAM 01/18/20 10/10/22 History dulaglutide 3 mg/0.5 mL 1 device subcut QWEEK 10/10/22 10/10/22 History subcutaneous pen injector (Trulicity) lorazepam 0.5 mg tablet 1 tab PO BID PRN PRN Anxiety 10/10/22 10/10/22 History tiotropium bromide 18 mcg capsule 1 inh inhalation DAILY 10/10/22 10/10/22 History with inhalation device (Spiriva with HandiHaler) Exam Narrative Exam Narrative: General: Pleasant obese female who is A&Ox3, anxious, speaking in full sentences on 2.5 L of O2 by [place] Neurological: A&Ox3, no focal deficits Psychiatric: Anxious Skin: Visible skin intact, including on B feet HEENT: Atraumatic, normocephalic, EOMI, MMM, clear oropharynx, tongue with white film Cardiovascular: RRR, no m/r/g Lungs: wheezing on expiration B Gastrointestinal: soft, nontender, nondistended Genitourinary: deferred Extremities: no lesions on B feet, +1 pedal pulses B, no edema, clubbing, or cyanosis. Results Imaging Additional studies: CXR: The appearance is suggestive of multifocal pneumonitis . Labs Result diagrams: 10/10/22 12:08 10/10/22 12:08 Labs: Laboratory Results - last 24 hr 10/10/22 10/10/22 10/10/22 12:08 12:08 12:08 WBC RBC Hgb Hct MCV MCH MCHC RDW Plt Count MPV Immature Gran % Neutrophils % Lymphocytes % Monocytes % Eosinophils % Basophils % Nucleated RBC % Absolute Neutrophils Absolute Lymphocytes Absolute Monocytes Absolute Eosinophils Absolute Basophils VBG Lactate 0.8 Sodium 138 Potassium 4.5 Chloride 100 Carbon Dioxide 32.4 H Anion Gap 5.6 BUN 12 Creatinine 0.6 Est GFR (CKD-EPI 2020) 111.34 Glucose 146 H Calcium 8.7 Total Bilirubin 0.8 AST 30 ALT 11 L Alkaline Phosphatase 70 Total Protein 7.5 Albumin 2.7 L COVID-19 Source Nasopharynx SARS-CoV-2 (PCR) Negative Influenza Type A (PCR) Negative Influenza Type B (PCR) Negative RSV (PCR) Negative Add-On Test Request 10/10/22 10/10/22 12:08 16:21 WBC 11.09 H RBC 4.00 Hgb 11.3 Hct 35.3 L MCV 88 MCH 28.3 MCHC 32.0 RDW 16.8 H Plt Count 250 MPV 9.6 Immature Gran % 1.4 Neutrophils % 68.2 Lymphocytes % 24.3 Monocytes % 4.8 Eosinophils % 1.0 Basophils % 0.3 Nucleated RBC % 0.6 H Absolute Neutrophils 7.56 H Absolute Lymphocytes 2.69 Absolute Monocytes 0.53 Absolute Eosinophils 0.11 Absolute Basophils 0.03 VBG Lactate Sodium Potassium Chloride Carbon Dioxide Anion Gap BUN Creatinine Est GFR (CKD-EPI 2020) Glucose Calcium Total Bilirubin AST ALT Alkaline Phosphatase Total Protein Albumin COVID-19 Source SARS-CoV-2 (PCR) Influenza Type A (PCR) Influenza Type B (PCR) RSV (PCR) Add-On Test Request DONE Last Vital Signs Temp 36.8 C 10/10/22 16:32 Pulse 100 H 10/10/22 16:32 Resp 22 10/10/22 16:32 BP 161/91 H 10/10/22 16:32 Pulse Ox 92 10/10/22 16:32
[2022-10-10 17:05] LABS: Procalcitonin < 0.1 ng/mL
[2022-10-10] MEDS: Enoxaparin 40 MG/0.4 ML SYR SC (17:52)
[2022-10-10] MEDS: Nystatin 500000 UNITS/5 ML SUSP 5ML CUP PO ×2 (18:13→20:46)
[2022-10-10] MEDS: LORazepam 0.5 MG TAB PO (18:13)
[2022-10-10 18:50] LABS: *AMPHETAMINES SCREEN URINE Negative (Negative); *BARBITURATES SCREEN URINE Negative (Negative); *BENZODIAZEPINES SCREEN URINE Negative (Negative); Cannabinoids THC Positive (Negative); Cocaine Screen,Urine Negative (Negative); METHADONE URINE SCREEN Negative (Negative); OPIATES URINE SCREEN Negative (Negative)
[2022-10-10 18:54] LABS: Tricyclic Antidepressants Negative (Negative)
[2022-10-10] MEDS: guaiFENesin 600 MG TABCR PO (20:46)
[2022-10-10] MEDS: Normal Saline 500 ML 35 ML IV (20:52)
[2022-10-10] MEDS: Normal Saline Flush 10 ML SYR IVP (20:53)
[2022-10-10] MEDS: Melatonin 3 MG TAB 9 MG PO (21:41)
[2022-10-10] MEDS: Divalproex 500 MG TABEC 1000 MG PO (21:42)
[2022-10-10] MEDS: Prazosin 1 MG CAP 3 MG PO (21:42)
[2022-10-10] MEDS: risperiDONE 1 MG TAB 2 MG PO (21:43)
[2022-10-10] MEDS: Insulin Aspart 300 UNITS/3 ML PEN SC (21:45)
[2022-10-11] VITALS (9 sets, daily range): BP systolic 126–173; BP diastolic 61–104; PULSE 79–98; RESP 1–18; TEMP 36–36.9; O2SAT 89–98
--- NOTE | 2022-10-11 | DI.US_ITS ---
APPROVED REPORT EXAM: Comprehensive 2D, Doppler, and color-flow Echocardiogram Patient Location: In-Patient Quick Print Operator: Jessica Rubi RDCS (AE) Indications: Hypoxic respiratory failure Other Information Study Quality: Poor. Technically limited study due to body habitus, patient refused to finish exam.. Conclusion Mild concentric left ventricular hypertrophy and normal LV chamber size. Estimated ejection fraction is borderline. It is measured at 53%. No segmental wall motion abnormalities are identified The right ventricle was not well visualized Left atrium is normal in size. Right atrium is not well visualized Normal mitral valve with moderate regurgitation Trileaflet aortic valve with mild to moderate regurgitation Normal tricuspid valve with mild to moderate regurgitation. Right ventricular systolic pressure coul d not be estimated Wall motion Left Ventricle The left ventricle is normal size. The overall left ventricular systolic function appears low normal. Mild concentric left ventricular hypertrophy. LVEF is 53%. Right Ventricle Right ventricle is not visualized. Right ventricular systolic function could not be assessed. Atria The left atrium size is normal. Right atrium is not l visualized. Aortic Valve The aortic valve is normal in structure. Aortic valve is trileaflet. Mild to moderate aortic regurgit ation. Mitral Valve The mitral valve is normal in structure. No evidence of mitral valve stenosis. Moderate mitral regurg itation. Tricuspid Valve The tricuspid valve is normal in structure. There is no tricuspid valve stenosis. Mild to moderate tr icuspid regurgitation. Pulmonic Valve The pulmonary valve is normal in structure. There is no pulmonic valvular stenosis. There is no pulmo emily valvular regurgitation. Great Vessels The aortic root is normal in size. The ascending aorta is mildly dilated. 2D Dimensions IVSD d PLAX 1.12 cm F: 0.6-1.0 LVPW d PLAX 1.14 cm F: 0.6 - 1.0 LVID d PLAX 4.84 cm F: 3.8 - 5.2 LVDs 3.50 cm F: 2.2 - 3.5 Ao Root d 2.48 cm F: 2.7 - 3.3 Ao Asc Diam d 3.38 cm F: 2.3 - 3.1 LV EF Teichholz 53.4 % FS 27.55 % LV Diastology E/A Ratio 1.1 MV E Vmax 1.20 (0.4-1.3 m/s) MV A Vmax 1.05 (0.4-1.3 m/s) MV E/A Ratio 1.11 Aortic Valve LVOT Area 2.99 cm2 LVOT Diam s 1.95 cm Mitral Valve MV DT 189 (160-240 msec) MV PHT 55 msec MV Area PHT 4.01 cm2 Pulmonary Valve PV Vmax 1.00 (0.5-1.5 m/s) RVOT Peak Gr. 1.62 mmHg PV Peak Grad 4.0 mmHg RVOT Mean Gr. 0.95 mmHg PV Mean Grad 2.2 mmHg RVOT VTI 0.139 m PV VTI 0.171 m RVOT Vmax 0.64 m/s Tricuspid Valve TR Peak Grad 36.7 mmHg TR Vmax 3.03 m/s
[2022-10-11] MEDS: Albuterol/Ipratropium 3 ML UPD VIAL UPD ×2 (00:30→06:05)
[2022-10-11] MEDS: Nystatin 500000 UNITS/5 ML SUSP 5ML CUP PO ×5 (05:57→19:43)
[2022-10-11] MEDS: CEFEPIME 2 GM in Normal Saline 100 ML IVPB (05:59)
[2022-10-11 06:59] LABS: Absolute Basophil Count 0.03 10^3/uL (0.0-0.2); Absolute Eosinophil Count 0.06 10^3/uL (0.0-0.7); Absolute Lymphocyte Count 3.79 10^3/uL (1.2-3.4); Absolute Monocyte Count 0.53 10^3/uL (0.1-0.8); Absolute Neutrophil Count 5.82 10^3/uL (1.2-6.7); Basophils % 0.3; Eosinophils % 0.6; HCT 34.6 % (36.0-46.0); HGB 10.8 g/dL (11.2-15.7); Lymphocytes % 36.7; MCH 27.7 pg (27.0-33.0); MCHC 31.2 % (32.0-36.0); MCV 89 fL (80-95); MPV 9.2 fL (8.0-11.0); Monocytes % 5.1; Neutrophils % 56.3; Nucleated RBC 0.3 % (0.0-0.3); Platelet Count 223 10^3/uL (130-400); RDW 16.9 % (11.7-14.6); RDW-SD 54.2 fL; WBC 10.33 10^3/uL (4.4-10.8)
[2022-10-11 07:16] LABS: Anion Gap 5.1 mmol/L (3-11); BUN 15 mg/dL (7-18); CO2 31.9 mmol/L (21.0-32.0); CREATININE 0.8 mg/dL (0.55-1.02); Calcium 8.7 mg/dL (8.5-10.1); Chloride 100 mmol/L (98-107); Glucose 204 mg/dL (74-106); Magnesium 2.1 mg/dL (1.8-2.4); Potassium 3.7 mmol/L (3.5-5.1); Sodium 137 mmol/L (136-145)
[2022-10-11 07:25] LABS: Hemoglobin A1C 7.6 % (<5.7)
[2022-10-11] MEDS: LORazepam 0.5 MG TAB PO ×2 (07:49→19:41)
[2022-10-11] MEDS: predniSONE 20 MG TAB 40 MG PO (07:49)
[2022-10-11] MEDS: Pantoprazole 40 MG TABCR PO (07:49)
[2022-10-11] MEDS: guaiFENesin 600 MG TABCR PO ×2 (07:50→19:38)
[2022-10-11] MEDS: Normal Saline Flush 10 ML SYR IVP ×3 (07:50→16:44)
[2022-10-11] MEDS: Insulin Aspart 300 UNITS/3 ML PEN SC ×4 (07:52→21:37)
[2022-10-11] MEDS: Albuterol 2.5 MG/3 ML INH SOLN VIAL UPD (08:15)
[2022-10-11] MEDS: Insulin Glargine 300 UNITS/3 ML PEN 10 UNITS SC (09:29)
--- NOTE | 2022-10-11 09:59 | INITIAL_ITS ---
- If Service Date Differs Date of service: 10/11/22 Time of Service: 09:59 Care Management Initial Assess REASON FOR HOSPITALIZATION:: Acute respiratory failure with hypoxia PAST MEDICAL HISTORY/PAST SURGICAL HISTORY:: PFSH. All Active Problems (Updated 10/10/22 @ 18:52 by Arleth Butler MD). Discharge planning issues (Acute). DVT prophylaxis (Acute). Tobacco abuse (Acute). Acute respiratory failure with hypoxia (Acute). Acute exacerbation of COPD with asthma (Acute). Encounter for medication refill (Acute). Acute pneumonia (Acute). Acute asthma exacerbation (Acute). Hypoxia (Acute). Medical History (Updated 10/10/22 @ 18:52 by Arleth Butler MD). ADHD. Anxiety. Bipolar disorder. H/O suicide attempt. Hypertension. Non-insulin dependent diabetes mellitus. Obesity (BMI 30.0- 34.9). Surgical History (Updated 10/10/22 @ 17:58 by Arleth Butler MD). S/P cholecystectomy. Status post bilateral salpingectomy PREVIOUS FUNCTIONAL STATUS/SOCIAL/FAMILY SUPPORTS:: Cecilia lives in [facility] [place] with her Dheeraj. Cecilia does not drive and uses [facility] for transportation. Cecilia shares that she is disabled due to her anxiety and depression. She has therapy through Anastasiia at [facility] and feels that her symptoms have been stable for quite some time. Cecilia denies HI/SI thoughts. CURRENT FUNCTIONAL STATUS:: Cecilia is lying in bed, she is awake, alert and easily engages in conversation. Cecilia shares that she sees Anastasiia Villarreal at [facility] for her anxiety and depression. Cecilia denies any barriers accessing medication, food, housing, heat etc. and feels that her basic needs are met in the community. ADVANCE DIRECTIVES:: None on file at [facility], will offer forms. Has patient been provided with info about the portal/API?: Yes Did the patient sign up for the portal?: No CODE STATUS:: Full Code INSURANCE COVERAGE / FINANCIAL ISSUES:: [employer]. [facility]. [facility]. Medicaid. Medicare A&B CURRENT HOME/COMMUNITY SERVICES/EQUIPMENT:: Services through [facility]. SSDI PRIMARY CARE PHYSICIAN:: Julianna Singh POTENTIAL DISCHARGE NEEDS:: Discharge plan of care, follow up appointment with PCP and pulmonology PATIENT/FAMILY EDUCATION NEEDS:: Review discharge instructions, limitations, me dications and plan to follow up with community providers. Discuss ask me three and goals of self care. TRANSPORTATION:: Via [facility] private vehicle. PLAN:: Cecilia is being closely monitored and treated for Respiratory Failure with Hypoxia. She is currently 98% on 2L NC and does not have home O2 at baseline. Dr. Griffith is consulted. Anticipate, Cecilia will discharge home when medically ready via [facility] private vehicle. Cecilia will need follow up appointments with her PCP and Dr. Griffith.
--- NOTE | 2022-10-11 10:41 | W.INDIABCONS ---
Date of service: 10/11/22 Time of Service: 10:41 Diabetes Inpatient Consult Reason for Visit: dm2 DESCRIPTION/ASSESSMENT: Cecilia is admitted with respiratory failure with hypoxia secondary to PNA. PMH: COPD, Asthma, obesity, NIDDM, HTN. A1C: 7.6% indicates good glycemic control. Anticipate steriod induced hyperglycemia. Following diabetic diet. Cecilia unavailable at visit today. PLAN: WIll be available prn for weight/diabetes management education. Time Spent in Nutritional Counseling and Treatment: 0
--- NOTE | 2022-10-11 10:43 | PUCON_ITS ---
General Date Of Service Date of service: 10/11/22 Time of Service: 08:30 Reason for Consult: Pneumonia, Asthma exacerbation Assessment and Plan Assessment and plan (1) Acute respiratory failure with hypoxia: Status: Acute (2) Acute asthma exacerbation: Status: Acute Assessment and plan: This is a 46 yo woman with asthma (no diagnosis of COPD) admitted for hypoxic respiratory failure. Based on her labs, imaging and exam, I worry about volume overload as a contributing cause of her hypoxia. I will get an echo and bnp to assess this further. Additionally, her inhaler regimen is inappropriate for asthma. I will discontinue the Spiriva and have her on high dose Symbicort to treat her asthma more effectively. She will have outpatient PFT's to confirm or rule out COPD. Finally, her procalcitonin is negative, cultures are negative and her CXR is less consistent with pneumonia. Acute hypoxic respiratory failure - echo - bnp - supplemental O2 for sats >90% - D/C cefepime Asthma - stop Spiriva - start Symbicort 160 2 puff bid - rinse mouth after use - please discharge on Symbicort and discontinue Spiriva - continue prednsione 40mg for a total of 7 days - no need for Protonix for prednisone - can continue azithromycin for a total of 5 days - I have arranged follow up with me History of Present Illness Narrative: This is a 46 yo woman with a history of asthma who is admitted for hypoxic respiratory failure. She has a history of asthma, no history of COPD but is a 25 pack year smoker. She has never had PFT's in the past. She is only on Spiriva as an outpatient.She was thought to have pneumonia and an asthma vs COPD exacerbation and is being treated with steroids, cefepime and azithromycin. Her chest Xray is more consistent with volume overload vs pneumonitis as opposed to a pneumonia. Her procalcitonin is negative. Her blood and sputum cultures are also negative. She tells me she does not feel as though she had gotten any better since being in the hospital. She is still short of breath with a cough. Review of Systems All systems reviewed & are unremarkable except as noted in HPI and below PFSH All Active Problems (Updated 10/10/22 @ 18:52 by Arleth Butler MD) Discharge planning issues (Acute) DVT prophylaxis (Acute) Tobacco abuse (Acute) Acute respiratory failure with hypoxia (Acute) Acute exacerbation of COPD with asthma (Acute) Encounter for medication refill (Acute) Acute pneumonia (Acute) Acute asthma exacerbation (Acute) Hypoxia (Acute) Medical History (Updated 10/10/22 @ 18:52 by Arleth Butler MD) ADHD Anxiety Bipolar disorder H/O suicide attempt Hypertension Non-insulin dependent diabetes mellitus Obesity (BMI 30.0-34.9) Surgical History (Updated 10/10/22 @ 17:58 by Arleth Butler MD) S/P cholecystectomy Status post bilateral salpingectomy Family History (Updated 10/10/22 @ 17:58 by Arleth Butler MD) Other Adopted Social History Smoking/Tobacco Use Status: Current every day Tobacco Type: cigarettes Smoking risk assessment performed?: Yes Alcohol Intake: never Substance use type: does not use Do you feel safe at home: Yes Do you feel safe in your relationship?: Yes Visit Medication and Allergies Active Medications Generic Name Dose Route Start Last Admin Trade Name Freq PRN Reason Stop Dose Admin Acetaminophen 0 mg 10/10/22 14:18 Acetaminophen 325 Mg Tab PO Q4H PRN PRN Al Hydrox/Mg Hydrox/Simethicone 30 ml 10/10/22 14:18 Mylanta Suspension 30 Ml Cup PO Q2H PRN PRN Albuterol Sulfate 2.5 mg 10/10/22 14:18 10/11/22 08:15 Albuterol 2.5 Mg/3 Ml Inh Soln Vial UPD 2.5 mg Q2H PRN PRN Administration Albuterol/Ipratropium 3 ml 10/10/22 18:00 10/11/22 06:05 Albuterol/Ipratropium 3 Ml Upd Vial UPD 3 ml Q6H MITA Administration Dextrose 0 gm 10/10/22 17:32 Glucose 40% Oral Solution 15 Gm/37.5 Gm Tube PO DIRECTED PRN Dextrose/Water 0 gm 10/10/22 17:32 Dextrose 50%-Water 25 Gm/50 Ml Syr IVP DIRECTED PRN Dimethicone/Zinc Oxide 0 gm 10/10/22 14:18 Ambika Protect Cream 142 Gm Tube TP PRN PRN Docusate Sodium 100 mg 10/10/22 14:18 Docusate Sodium 100 Mg Cap PO TID PRN PRN Enoxaparin Sodium 40 mg 10/10/22 18:00 10/10/22 17:52 Enoxaparin 40 Mg/0.4 Ml Syr SC 40 mg Q24H MITA Administration Guaifenesin 600 mg 10/10/22 20:00 10/11/22 07:50 Guaifenesin 600 Mg Tabcr PO 600 mg BID MITA Administration Sodium Chloride 500 mls @ 0 mls/hr 10/10/22 14:18 10/10/22 21:45 Saline 500ml Bag IV 0 mls/hr PRN PRN Infusion As Directed Azithromycin 500 mg/ Sodium 250 mls @ 250 mls/hr 10/11/22 14:00 Chloride IVPB Q24H MITA Cefepime HCl 2 gm/ Sodium 100 mls @ 200 mls/hr 10/10/22 22:00 10/11/22 06:30 Chloride IVPB Infused Q8H MITA Infusion IV Miscellaneous Supplies 1 each 10/10/22 12:00 Iv Access IV DIRECTED [facility] IV Miscellaneous Supplies 1 each 10/10/22 14:30 Iv Access IV DIRECTED [facility] Insulin Aspart 0 units 10/10/22 22:00 10/11/22 07:52 Insulin Aspart 300 Units/3 Ml Pen SC 6 units 0800,1200,1700,2200 [facility] Administration Protocol Insulin Glargine 10 units 10/11/22 08:30 10/11/22 09:29 Insulin Glargine 300 Units/3 Ml Pen SC 10 units DAILY MITA Administration Lactobacillus Acidophilus/Casei 1 cap 10/11/22 08:30 10/11/22 07:49 L. Acidophilus, Casei, Rhamnosus Cap PO 1 cap DAILY MITA Administration Lorazepam 0.5 mg 10/10/22 17:55 10/11/22 07:49 Lorazepam 0.5 Mg Tab PO 0.5 mg BID PRN PRN Administration Magnesium Hydroxide 30 ml 10/10/22 14:18 Milk Of Magnesia 30 Ml Cup PO DAILY PRN PRN Melatonin 9 mg 10/10/22 22:00 10/10/22 21:41 Melatonin 3 Mg Tab PO 9 mg HS MITA Administration Nicotine 0 cartridge 10/10/22 17:16 10/11/22 07:50 Nicotine 10 Mg/Cartridge 30 Cart/Pkg IH 1 cartridge Q2H PRN PRN Administration Nystatin 500,000 units 10/10/22 18:00 10/11/22 10:21 Nystatin 195370 Units/5 Ml Susp 5ml Cup PO 500,000 units 5X/DAY MITA Administration Pantoprazole Sodium 40 mg 10/11/22 07:30 10/11/22 07:49 Pantoprazole 40 Mg Tabcr PO 40 mg DAILY@0730 MITA Administration Prednisone 40 mg 10/11/22 08:30 10/11/22 07:49 Prednisone 20 Mg Tab PO 40 mg DAILY MITA Administration Sodium Chloride 0 ml 10/10/22 11:57 10/11/22 07:50 Normal Saline Flush 10 Ml Syr IVP 10 ml PRN PRN Administration Sodium Chloride 0 ml 10/10/22 14:18 Normal Saline Flush 10 Ml Syr IVP PRN PRN Allergies amoxicillin Allergy (Unverified 10/10/22 11:57) Nausea bee pollen Allergy (Unverified 10/10/22 11:57) Hives fluoxetine [From Prozac] Allergy (Unverified 10/10/22 11:57) Nausea hazelnut Allergy (Unverified 10/10/22 11:57) Hives abelox Allergy (Uncoded 10/10/22 11:57) Hives Exam Narrative Exam Narrative: Gen: NAD, normal respiratory effort, well-nourished HENT: PERRL, nasal turbinates normal without erythema or inflammation, moist oral mucosa, Mallampati 2, No LAD or JVD Chest: No respiratory distress, normal appearance of chest, clear to ausculta tion bilaterally, course crackles, no wheezing, normal inspiratory effort Heart: regular rate and rhythym, no murmurs, rubs or gallops Abdomen: Non-distended, soft, non tender Extremities: No clubbing, edema, cyanosis, rashes Neuro: AAOx3 , non focal Psych: cooperative, appropriate mental affect Results Last Vital Signs Temp 36.5 C 10/11/22 07:23 Pulse 84 10/11/22 08:15 Resp 16 10/11/22 08:15 BP 173/84 H 10/11/22 07:23 Pulse Ox 98 10/11/22 08:15 Labs Result diagrams: 10/11/22 06:40 10/11/22 06:40 Labs: Laboratory Results - last 24 hr 10/10/22 10/10/22 10/10/22 12:08 12:08 12:08 WBC RBC Hgb Hct MCV MCH MCHC RDW Plt Count MPV Immature Gran % Neutrophils % Lymphocytes % Monocytes % Eosinophils % Basophils % Nucleated RBC % Absolute Neutrophils Absolute Lymphocytes Absolute Monocytes Absolute Eosinophils Absolute Basophils VBG Lactate 0.8 Sodium 138 Potassium 4.5 Chloride 100 Carbon Dioxide 32.4 H Anion Gap 5.6 BUN 12 Creatinine 0.6 Est GFR (CKD-EPI 2020) 111.34 Glucose 146 H Hemoglobin A1c Calcium 8.7 Magnesium Total Bilirubin 0.8 AST 30 ALT 11 L Alkaline Phosphatase 70 Total Protein 7.5 Albumin 2.7 L Procalcitonin Urine Opiates Screen Urine Methadone Screen Ur Barbiturates Screen Ur Tricyclics Screen Ur Amphetamines Screen U Benzodiazepines Scrn Urine Cocaine Screen Ur THC Screen COVID-19 Source Nasopharynx SARS-CoV-2 (PCR) Negative Influenza Type A (PCR) Negative Influenza Type B (PCR) Negative RSV (PCR) Negative Add-On Test Request 10/10/22 10/10/22 10/10/22 12:08 12:45 16:21 WBC 11.09 H RBC 4.00 Hgb 11.3 Hct 35.3 L MCV 88 MCH 28.3 MCHC 32.0 RDW 16.8 H Plt Count 250 MPV 9.6 Immature Gran % 1.4 Neutrophils % 68.2 Lymphocytes % 24.3 Monocytes % 4.8 Eosinophils % 1.0 Basophils % 0.3 Nucleated RBC % 0.6 H Absolute Neutrophils 7.56 H Absolute Lymphocytes 2.69 Absolute Monocytes 0.53 Absolute Eosinophils 0.11 Absolute Basophils 0.03 VBG Lactate Sodium Potassium Chloride Carbon Dioxide Anion Gap BUN Creatinine Est GFR (CKD-EPI 2020) Glucose Hemoglobin A1c Calcium Magnesium Total Bilirubin AST ALT Alkaline Phosphatase Total Protein Albumin Procalcitonin < 0.1 Urine Opiates Screen Urine Methadone Screen Ur Barbiturates Screen Ur Tricyclics Screen Ur Amphetamines Screen U Benzodiazepines Scrn Urine Cocaine Screen Ur THC Screen COVID-19 Source SARS-CoV-2 (PCR) Influenza Type A (PCR) Influenza Type B (PCR) RSV (PCR) Add-On Test Request DONE 10/10/22 10/11/22 10/11/22 17:55 06:40 06:40 WBC 10.33 RBC 3.90 L Hgb 10.8 L Hct 34.6 L MCV 89 MCH 27.7 MCHC 31.2 L RDW 16.9 H Plt Count 223 MPV 9.2 Immature Gran % 1.0 Neutrophils % 56.3 Lymphocytes % 36.7 Monocytes % 5.1 Eosinophils % 0.6 Basophils % 0.3 Nucleated RBC % 0.3 Absolute Neutrophils 5.82 Absolute Lymphocytes 3.79 H Absolute Monocytes 0.53 Absolute Eosinophils 0.06 Absolute Basophils 0.03 VBG Lactate Sodium 137 Potassium 3.7 Chloride 100 Carbon Dioxide 31.9 Anion Gap 5.1 BUN 15 Creatinine 0.8 Est GFR (CKD-EPI 2020) 91.40 Glucose 204 H Hemoglobin A1c Calcium 8.7 Magnesium 2.1 Total Bilirubin AST ALT Alkaline Phosphatase Total Protein Albumin Procalcitonin Urine Opiates Screen Negative Urine Methadone Screen Negative Ur Barbiturates Screen Negative Ur Tricyclics Screen Negative Ur Amphetamines Screen Negative U Benzodiazepines Scrn Negative Urine Cocaine Screen Negative Ur THC Screen Positive A COVID-19 Source SARS-CoV-2 (PCR) Influenza Type A (PCR) Influenza Type B (PCR) RSV (PCR) Add-On Test Request 10/11/22 06:40 WBC RBC Hgb Hct MCV MCH MCHC RDW Plt Count MPV Immature Gran % Neutrophils % Lymphocytes % Monocytes % Eosinophils % Basophils % Nucleated RBC % Absolute Neutrophils Absolute Lymphocytes Absolute Monocytes Absolute Eosinophils Absolute Basophils VBG Lactate Sodium Potassium Chloride Carbon Dioxide Anion Gap BUN Creatinine Est GFR (CKD-EPI 2020) Glucose Hemoglobin A1c 7.6 H Calcium Magnesium Total Bilirubin AST ALT Alkaline Phosphatase Total Protein Albumin Procalcitonin Urine Opiates Screen Urine Methadone Screen Ur Barbiturates Screen Ur Tricyclics Screen Ur Amphetamines Screen U Benzodiazepines Scrn Urine Cocaine Screen Ur THC Screen COVID-19 Source SARS-CoV-2 (PCR) Influenza Type A (PCR) Influenza Type B (PCR) RSV (PCR) Add-On Test Request
[2022-10-11 12:56] LABS: NT-proBNP 1805 pg/mL (<300)
[2022-10-11] MEDS: AZITHROMYCIN 500 MG in Normal Saline 250 ML 250 MG IVPB (14:01)
--- NOTE | 2022-10-11 15:54 | CHAPLAIN ---
I had a brief visit with Cecilia. She was hoping to rest. I explain my role and offered support.
--- NOTE | 2022-10-11 16:16 | W.PM.PROGNOT ---
Date of Service Date of service: 10/11/22 Time of Service: 16:16 Assessment and Plan Assessment and plan (1) Acute respiratory failure with hypoxia: Status: Acute Assessment and plan: Echocardiogram shows an EF of 53%. No segemental wall motion abnormalities. Pt did not allow the exam to continue to completion. Her NTProBNP is elevated at 1805. Lasix 40mg IV now. (2) Acute exacerbation of COPD with asthma: Status: Acute Assessment and plan: Pulmonary consult appreciated. On Spiriva at home but states she doesn't have home albuterol. Cont Spiriva. Symbicort initiated. Prednisone 40mg daily. Azithromycin 500mg po x5 days. (3) Non-insulin dependent diabetes mellitus: Assessment and plan: A1c 7.6. On Trulicity weekly. Cover with SSI and Lantus 10units daily. Anticipate steroid-induced hyperglycemia (4) Tobacco abuse: Status: Acute Assessment and plan: Encourage to quit. Provide nicotine replacement (5) DVT prophylaxis: Status: Acute Assessment and plan: sc lovenox (6) Discharge planning issues: Status: Acute Assessment and plan: Full code (7) Bipolar disorder: Assessment and plan: Cont depakote as mood stabilizer. Cont Sertraline, Risperidol, prazosin. Cont prn lorazepam. Subjective Subjective Patient reports: no new complaints, shortness of breath and afebrile; denies feels better, diarrhea, nausea or vomiting Exam Narrative Exam Narrative: Gen: Appears anxious. Cooperative. Chest: Bilateral expiratory wheezes. Diminished air movement. Nonlabored breathing. Heart: RRR, No murmur Abdomen: Non-distended, soft, non tender Extremities: No edema or calf tenderness. Neuro: AAOx3. NO focal motor deficits. Psych: Anxious. Grossly normal appearance, speech. Objective Last Vital Signs Temp 36.5 C 10/11/22 15:08 Pulse 93 H 10/11/22 15:08 Resp 16 10/11/22 15:08 BP 137/70 10/11/22 15:08 Pulse Ox 94 10/11/22 15:08 Laboratory Results - last 24 hr 10/10/22 10/10/22 10/10/22 12:45 16:21 17:55 WBC RBC Hgb Hct MCV MCH MCHC RDW Plt Count MPV Immature Gran % Neutrophils % Lymphocytes % Monocytes % Eosinophils % Basophils % Nucleated RBC % Absolute Neutrophils Absolute Lymphocytes Absolute Monocytes Absolute Eosinophils Absolute Basophils Sodium Potassium Chloride Carbon Dioxide Anion Gap BUN Creatinine Est GFR (CKD-EPI 2020) Glucose Hemoglobin A1c Calcium Magnesium NT-Pro-B Natriuret Pep Procalcitonin < 0.1 Urine Opiates Screen Negative Urine Methadone Screen Negative Ur Barbiturates Screen Negative Ur Tricyclics Screen Negative Ur Amphetamines Screen Negative U Benzodiazepines Scrn Negative Urine Cocaine Screen Negative Ur THC Screen Positive A Add-On Test Request DONE 10/11/22 10/11/22 10/11/22 06:40 06:40 06:40 WBC 10.33 RBC 3.90 L Hgb 10.8 L Hct 34.6 L MCV 89 MCH 27.7 MCHC 31.2 L RDW 16.9 H Plt Count 223 MPV 9.2 Immature Gran % 1.0 Neutrophils % 56.3 Lymphocytes % 36.7 Monocytes % 5.1 Eosinophils % 0.6 Basophils % 0.3 Nucleated RBC % 0.3 Absolute Neutrophils 5.82 Absolute Lymphocytes 3.79 H Absolute Monocytes 0.53 Absolute Eosinophils 0.06 Absolute Basophils 0.03 Sodium 137 Potassium 3.7 Chloride 100 Carbon Dioxide 31.9 Anion Gap 5.1 BUN 15 Creatinine 0.8 Est GFR (CKD-EPI 2020) 91.40 Glucose 204 H Hemoglobin A1c 7.6 H Calcium 8.7 Magnesium 2.1 NT-Pro-B Natriuret Pep Procalcitonin Urine Opiates Screen Urine Methadone Screen Ur Barbiturates Screen Ur Tricyclics Screen Ur Amphetamines Screen U Benzodiazepines Scrn Urine Cocaine Screen Ur THC Screen Add-On Test Request 10/11/22 06:40 WBC RBC Hgb Hct MCV MCH MCHC RDW Plt Count MPV Immature Gran % Neutrophils % Lymphocytes % Monocytes % Eosinophils % Basophils % Nucleated RBC % Absolute Neutrophils Absolute Lymphocytes Absolute Monocytes Absolute Eosinophils Absolute Basophils Sodium Potassium Chloride Carbon Dioxide Anion Gap BUN Creatinine Est GFR (CKD-EPI 2020) Glucose Hemoglobin A1c Calcium Magnesium NT-Pro-B Natriuret Pep 1805 H Procalcitonin Urine Opiates Screen Urine Methadone Screen Ur Barbiturates Screen Ur Tricyclics Screen Ur Amphetamines Screen U Benzodiazepines Scrn Urine Cocaine Screen Ur THC Screen Add-On Test Request
[2022-10-11] MEDS: Furosemide 40 MG/4 ML VIAL IVP (16:43)
[2022-10-11] MEDS: Enoxaparin 40 MG/0.4 ML SYR SC (17:37)
[2022-10-11] MEDS: Melatonin 3 MG TAB 9 MG PO (19:37)
[2022-10-11] MEDS: risperiDONE 1 MG TAB 2 MG PO (19:38)
[2022-10-11] MEDS: Divalproex 500 MG TABEC 1000 MG PO (21:36)
[2022-10-11] MEDS: Prazosin 1 MG CAP 3 MG PO (21:36)
[2022-10-11] MEDS: Budesonide/Formoterol 160/4.5 6 GM 60 PUFF INH IH (22:08)
[2022-10-12] VITALS (17 sets, daily range): BP systolic 147–166; BP diastolic 76–96; PULSE 74–96; RESP 1–19; TEMP 36.4–37; O2SAT 84–100
[2022-10-12] MEDS: predniSONE 20 MG TAB 40 MG PO (07:39)
[2022-10-12] MEDS: Cholecalciferol (Vitamin D3) 1,000 UNIT TAB 1000 UNITS PO (07:40)
[2022-10-12] MEDS: Pantoprazole 40 MG TABCR PO (07:40)
[2022-10-12] MEDS: Amphet Asp/Amphet/D-Amphet 10 MG TAB 20 MG PO (07:40)
[2022-10-12] MEDS: Sertraline 100 MG TAB 200 MG PO (07:40)
[2022-10-12] MEDS: Lisinopril 20 MG TAB PO (07:40)
[2022-10-12] MEDS: Nystatin 500000 UNITS/5 ML SUSP 5ML CUP PO ×5 (07:41→21:38)
[2022-10-12] MEDS: guaiFENesin 600 MG TABCR PO ×2 (07:41→19:15)
[2022-10-12] MEDS: Insulin Glargine 300 UNITS/3 ML PEN 10 UNITS SC (07:48)
[2022-10-12] MEDS: Budesonide/Formoterol 160/4.5 6 GM 60 PUFF INH IH ×2 (08:01→19:16)
[2022-10-12] MEDS: Albuterol/Ipratropium 3 ML UPD VIAL UPD ×3 (09:23→17:50)
[2022-10-12] MEDS: LORazepam 0.5 MG TAB PO ×2 (11:48→19:15)
[2022-10-12] MEDS: Insulin Aspart 300 UNITS/3 ML PEN SC ×2 (11:48→16:31)
[2022-10-12] MEDS: AZITHROMYCIN 500 MG in Normal Saline 250 ML 250 MG IVPB (13:34)
--- NOTE | 2022-10-12 13:59 | W.PM.PROGNOT ---
Date of Service Date of service: 10/12/22 Time of Service: 14:00 Assessment and Plan Assessment and plan (1) Acute respiratory failure with hypoxia: Status: Acute Assessment and plan: Echocardiogram shows an EF of 53%. No segemental wall motion abnormalities. Pt did not allow the exam to continue to completion. Her NTProBNP is elevated at 1805. Lasix 40mg IV now. Also with asthma exacerbation. Still requiring supplemental O2. On RA, desaturates into the low to mid 80's. (2) Acute exacerbation of COPD with asthma: Status: Acute Assessment and plan: Pulmonary consult appreciated. No formal dx of COPD. Certainly with asthma. On Spiriva at home but states she doesn't have home albuterol. Cont Spiriva. Symbicort initiated. Prednisone 40mg daily. Azithromycin 500mg po x5 days. (3) Non-insulin dependent diabetes mellitus: Assessment and plan: A1c 7.6. On Trulicity weekly. Cover with SSI and Lantus 10units daily. Anticipate steroid-induced hyperglycemia (4) Tobacco abuse: Status: Acute Assessment and plan: Encourage to quit. Provide nicotine replacement (5) DVT prophylaxis: Status: Acute Assessment and plan: sc lovenox (6) Discharge planning issues: Status: Acute Assessment and plan: Full code (7) Bipolar disorder: Assessment and plan: Cont depakote as mood stabilizer. Cont Sertraline, Risperidol, prazosin. Cont prn lorazepam. Subjective Subjective Patient reports: shortness of breath (with ambulation. ) and afebrile; denies nausea or vomiting Interval history since last seen: Pt endorses being anxious and would like to go home. Cough w/o sputum production. Exam Narrative Exam Narrative: Gen: Appears anxious. Cooperative. Chest: Bilateral expiratory wheezes. Some notable improvement in air movement. Nonlabored breathing. Heart: RRR, No murmur Abdomen: Non-distended, soft, non tender Extremities: No edema or calf tenderness. Neuro: AAOx3. No focal motor deficits. Psych: Anxious. Grossly normal appearance, speech. Objective Last Vital Signs Temp 36.4 C L 10/12/22 11:16 Pulse 96 H 10/12/22 12:41 Resp 18 10/12/22 11:16 BP 147/84 H 10/12/22 11:16 Pulse Ox 93 10/12/22 12:41
[2022-10-12] MEDS: Enoxaparin 40 MG/0.4 ML SYR SC (18:04)
[2022-10-12] MEDS: risperiDONE 1 MG TAB 2 MG PO (19:15)
[2022-10-12] MEDS: Normal Saline Flush 10 ML SYR IVP (19:17)
[2022-10-12] MEDS: Prazosin 1 MG CAP 3 MG PO (21:39)
[2022-10-12] MEDS: Melatonin 3 MG TAB 9 MG PO (21:39)
[2022-10-12] MEDS: Divalproex 500 MG TABEC 1000 MG PO (21:40)
[2022-10-13] MEDS: Albuterol/Ipratropium 3 ML UPD VIAL UPD ×2 (00:15→06:34)
[2022-10-13 03:21] VITALS: BP 132/75; PULSE 75; RESP 16; TEMP 36.6; O2SAT 95
[2022-10-13] MEDS: Nystatin 500000 UNITS/5 ML SUSP 5ML CUP PO ×2 (06:34→11:06)
[2022-10-13 07:14] VITALS: BP 160/92; PULSE 84; RESP 19; TEMP 36.6; O2SAT 93
[2022-10-13] MEDS: Pantoprazole 40 MG TABCR PO (07:35)
[2022-10-13] MEDS: Lisinopril 20 MG TAB PO (07:35)
[2022-10-13] MEDS: guaiFENesin 600 MG TABCR PO (07:36)
[2022-10-13] MEDS: Torsemide 20 MG TAB PO (07:36)
[2022-10-13] MEDS: Cholecalciferol (Vitamin D3) 1,000 UNIT TAB 1000 UNITS PO (07:36)
[2022-10-13] MEDS: Amphet Asp/Amphet/D-Amphet 10 MG TAB 20 MG PO (07:36)
[2022-10-13] MEDS: Sertraline 100 MG TAB 200 MG PO (07:36)
[2022-10-13] MEDS: Insulin Glargine 300 UNITS/3 ML PEN 10 UNITS SC (07:36)
[2022-10-13] MEDS: predniSONE 20 MG TAB 40 MG PO (07:36)
[2022-10-13] MEDS: Insulin Aspart 300 UNITS/3 ML PEN SC ×2 (07:37→11:49)
[2022-10-13] MEDS: Budesonide/Formoterol 160/4.5 6 GM 60 PUFF INH IH (08:06)
[2022-10-13 09:01] VITALS: O2SAT 88
[2022-10-13 09:05] VITALS: O2SAT 94
--- NOTE | 2022-10-13 10:39 | W.PM.DS.N ---
Date of service: 10/13/22 Time of Service: 10:40 DS: Diagnosis Discharge Diagnosis (1) Acute respiratory failure with hypoxia: Status: Acute (2) Acute exacerbation of COPD with asthma: Status: Acute (3) Non-insulin dependent diabetes mellitus: (4) Tobacco abuse: Status: Acute (5) DVT prophylaxis: Status: Acute (6) Discharge planning issues: Status: Acute (7) Bipolar disorder: Discharge Plan Disposition Patient Disposition: Home Condition: Improving Discharge Details Reason For Visit: Pneumonia, Exacerbation of COPD/Asthma Admit Date/Time: 10/10/22 14:19 Admit Provider: Arleth Butler Attending Provider: Arleth Butler Primary Care Provider: BRYCE SMITH Hospital Course Hospital Course: Ms Boudreaux is a 46 year old female with PMHx of COPD vs asthma, hypertension, bipolar d.o., obesity with BMI of 37.4 kg/m2, tobacco abuse, who presented to [facility] ED with c/o progressive shortness of breath for 1 week. She has had a productive cough with yellow blood tinged sputum. Denies fevers, endorses runny nose, sore throat, nausea (chronic), diarrhea. She was in respiratory distress on arrival and required 3L of O2 to saturate in the 90s. She desaturated to the 60s off of O2, per chart review. She tested negative for COVID-19 by PCR. She improved with nebulizer therapy. Her ER workup revealed that she had a multifocal pneumonitis. She was initiated on steroids, azithromycin, and cefepime. Hospitalist admission was requested. Pulmonary medicine consulted. Cefepime stopped. Her home Spiriva was continued. Symbicort and prednisone initiated. She continued to require supplemental O2 at rest until the day of discharge when her O2 saturation was steady at 91% on RA at rest. She will complete a burst of prednisone. Her insurance covers Dulera rather than Symbicort and that was prescribed. Cont Spiriva. She has a f/u with Dr. Woodson, pulmonary medicine, in February (the earliest available appt). Minimal exertional activity for several days then increase activity as tolerated. Home with her incentive spirometer and acapella. PCP f/u in 1-2 weeks. Home Meds and New Rx's Prescriptions: New Dulera 100-5 mcg/actuation HFA aerosol inhaler 2 puff inhalation BID Qty: 8.8 0RF cholecalciferol (vitamin D3) 25 mcg (1,000 unit) Tablet 1,000 units PO DAILY Qty: 0 0RF prednisone 20 mg Tablet 40 mg PO DAILY Qty: 4 0RF Rx Instructions: Next the morning of 10/14/22. Continued lisinopril 20 mg Tablet 20 mg DAILY sertraline [Zoloft] 100 mg Tablet 200 mg PO QAM divalproex [Depakote] 500 mg Tablet,Delayed Release (Dr/Ec) 1,000 mg PO QHS risperidone [Risperdal] 2 mg Tablet 2 mg BID Rx Instructions: take 2 mg in AM, 4 mg in PM amoxapine 100 mg Tablet 100 mg PO DAILY dextroamphetamine-amphetamine [Adderall XR] 10 mg Capsule,Extended Release 24hr 20 mg PO DAILY prazosin 2 mg Capsule 3 mg PO QHS melatonin 10 mg Tablet 10 mg PO QHS lorazepam 0.5 mg tablet 1 tab PO BID PRN PRN (Reason: Anxiety) Label Comments: TAKE ONE TABLET BY MOUTH TWICE A DAY NEEDED FOR ANXIETY Spiriva with HandiHaler 18 mcg capsule, w/inhalation device 1 inh INHALATION DAILY Label Comments: INHALE THE CONTENTS OF ONE CAPSULE VIA HANDIHALER BY MOUTH EVERY DAY DIRECTED Trulicity 3 mg/0.5 mL pen injector 1 device SUBCUT QWEEK Label Comments: INJECT ONCE WEEKLY DIRECTED Discharge Instructions Referrals: Cynthia Mcginnis MD [ [facility] STAFF PHYSICIAN] - 03/07/23 10:00 am Activity:: see d/c note Equipment/Supplies:: No Equipment Needed Diet:: Resume low carb diet Discharge Orders Discharge Orders: Discharge Order (Routine); Ordered 10/13/22 Ordered By: Mono Jacobo DS: Summary Time Spent with Patient providing and/or coordinating discharge services: Greater than 30 minutes Status at Discharge Functional status at discharge: independent ambulation Overall status at discharge: patient is progressing back to baseline Mental Status: mental status grossly normal Speech and Movement: speech and movement normal Mood: congruent mood Affect: normal affect Exam Narrative Exam Narrative: Gen: Cooperative. Walking in room. Chest: Lungs now clear. Nonlabored breathing. Heart: RRR, No murmur Abdomen: Non-distended, soft, non tender Extremities: No edema or calf tenderness. Neuro: AAOx3. No focal motor deficits. Psych: Anxious. Grossly normal appearance, speech. Psych Mental Status: mental status grossly normal Speech and Movement: speech and movement normal Mood: congruent mood Affect: normal affect DS: Data Vitals/I&O Vitals and I&O: Vital Signs Temperature 36.6 C 10/13/22 07:14 Temperature Source Tympanic 10/13/22 07:14 Pulse 84 10/13/22 07:14 Pulse Rhythm Regular 10/13/22 07:30 Pulse 106 H 10/10/22 15:10 Respiratory Rate 19 10/13/22 07:14 Respiratory Effort Non-Labored 10/13/22 07:30 Respiratory Depth Normal 10/13/22 07:30 Respiratory Pattern Normal 10/13/22 07:30 Blood Pressure 160/92 H 10/13/22 07:14 Blood Pressure Mean 103 10/10/22 13:46 Blood Pressure Position Sitting 10/10/22 11:54 Pulse Oximetry 94 10/13/22 09:05 Oxygen Delivery Method Nasal Cannula 10/13/22 09:05 Oxygen Flow Rate 0.5 10/13/22 09:05 Pain Level 0 10/13/22 03:21 Comment 10/13/22 09:01 Intake & Output 10/12/22 10/12/22 10/13/22 11:59 23:59 11:59 Intake Total 620 / 620 Output Total 900 / 1600 700 / 1600 1600 / 1600 Balance -900 / -980 -80 / -980 -1600 / -1600 Intake: IV 260 / 260 Oral 360 / 360 Output: Urine 900 / 1600 700 / 1600 1600 / 1600 Other: Urine Color Light Alia Light Alia Pale Yellow Urine Appearance Clear Clear Clear Urine Odor None Normal Comment Patient voiding independently Patient voiding independently Voiding Methods Toilet Toilet Toilet Data Completed and Pending Labs on day of discharge: Labs from last 24 hours 10/12/22 10/11/22 19:20 05:00 Urine Legionella Ag Pending M. pneumoniae Source Pending M. pneumoniae (PCR) Pending Preliminary micro results at discharge 10/11/22 05:00 Sputum Culture - Preliminary Sputum - Expectorated Normal Angélica 10/10/22 12:55 Blood Culture - Preliminary Blood NO GROWTH 48 HOURS 10/10/22 12:45 Blood Culture - Preliminary Blood NO GROWTH 48 HOURS PFSH All Active Problems Discharge planning issues (Acute) DVT prophylaxis (Acute) Tobacco abuse (Acute) Acute respiratory failure with hypoxia (Acute) Acute exacerbation of COPD with asthma (Acute) Encounter for medication refill (Acute) Acute pneumonia (Acute) Acute asthma exacerbation (Acute) Hypoxia (Acute) Medical History ADHD Anxiety Bipolar disorder H/O suicide attempt Hypertension Non-insulin dependent diabetes mellitus Obesity (BMI 30.0-34.9) Surgical History S/P cholecystectomy Status post bilateral salpingectomy Family History Other Adopted Social History Smoking/Tobacco Use Status: Current every day Tobacco Type: cigarettes Smoking risk assessment performed?: Yes Alcohol Intake: never Substance use type: does not use Do you feel safe at home: Yes Do you feel safe in your relationship?: Yes
[2022-10-13 11:05] VITALS: BP 143/85; PULSE 96; RESP 16; TEMP 36.3; O2SAT 93
--- NOTE | 2022-10-13 11:23 | PDOC.CMDIS ---
- If Service Date Differs Date of service: 10/13/22 Time of Service: 11:24 LACE Index Scoring Tool - Questions: Length of Stay (in days): 3 Acuity (Admit via E.D.?): Yes E.D. Visits: 1 - Answers: Total Score: 7 Risk of Readmission: Low Risk Care Management Discharge Reason for Hospitalization: Acute respiratory failure with hypoxia Discharge Plan: Cecilia is discharged home via [facility] private vehicle. New RX's are transmitted to [facility]. Cecilia will follow up with Pulmonology on 03/07/22, as scheduled and call her PCP Friday for a follow up appointment in 1-2 weeks. Cecilia is not interested in smoking cessation support/resources at this time. There is no anticipated need for [facility] services following discharge. Cecilia will return to the ER with worsening symptoms. Patient/Family Education Needs: Review discharge instructions, limitations, medications and plan to follow up with community providers. Discuss ask me three, smoking cessation and goals of self care. Services Needed at Discharge: Transportation ([facility] private vehicle, coordinated by [facility])
[2022-10-13] MEDS: Azithromycin 250 MG TAB 500 MG PO (11:49)
[2022-10-13 17:19] LABS: Streptococcus Pneumoniae Ag, U Negative (Negative)
[2022-10-14 07:14] LABS: Legionella Ag Detection Urine Negative (Negative)
[2022-10-16 15:51] LABS: Mycoplasma Pneumoniae PCR Negative; Specimen source sputum
== END 2022-10-13 12:56 | disposition home or self-care (01) | DRG 193 ==
LOC: ER 16:17 → MS 16:32
PROVIDERS: Student in an Organized Health Care Education/Training Program; Admitting Provider Internal Medicine; Emergency Provider Student in an Organized Health Care Education/Training Program; PCP Nurse Practitioner Family; Visit Provider Internal Medicine
DX: J18.9 Pneumonia, unspecified organism; J96.01 Acute respiratory failure with hypoxia; J44.1 Chronic obstructive pulmonary disease with (acute) exacerbation; J44.0 Chronic obstructive pulmonary disease with (acute) lower respiratory infection; F31.9 Bipolar disorder, unspecified; E11.9 Type 2 diabetes mellitus without complications; F17.210 Nicotine dependence, cigarettes, uncomplicated; I10 Essential (primary) hypertension; E66.9 Obesity, unspecified; F90.9 Attention-deficit hyperactivity disorder, unspecified type; F41.9 Anxiety disorder, unspecified; E55.9 Vitamin D deficiency, unspecified; Z68.37 Body mass index [BMI] 37.0-37.9, adult; Z79.84 Long term (current) use of oral hypoglycemic drugs
CPT/HCPCS: 36415; 80048; 80053; 80307; 84145; 87040; 87449; 87637; 94640; 96365; 96366; 96367; 96368; 96375; 99284; 99285; J1650; 71045; 83036; 83605; 83735; 83880; 85025; 87070; 87205; 87581; 87899; 93306; 94667; 94668; 99223; 99232; 99239; J0456; J1940; J2930; J3490; J7512; J7613; J7620

== ENCOUNTER 2022-10-23 17:21 | Outpatient (REF) | payer MEDICARE, MEDICAID, SELFPAY ==
[2022-10-25 12:14] LABS: COVID-19 RT-PCR UVMMC Result Negative (Negative)
== END 2022-10-23 17:22 | disposition home or self-care (01) ==
LOC: NCHCN 17:21
PROVIDERS: PCP Nurse Practitioner Family; Visit Provider Nurse Practitioner Family
DX: Z20.822 Contact with and (suspected) exposure to COVID-19 (principal); R05.8 Other specified cough
CPT/HCPCS: 87631; U0003

== ENCOUNTER 2022-10-30 20:38 | Observation (INO) | payer MEDICARE, MEDICAID, SELFPAY ==
[2022-10-30] VITALS (34 sets, daily range): BP systolic 70–166; BP diastolic 24–100; PULSE 81–109; RESP 4–32; TEMP 36.6–36.9; O2SAT 89–100
--- NOTE | 2022-10-30 20:30 | RT.EKG_ITS ---
APPROVED REPORT Exam: Resting ECG Reason for Exam: shortness of breath Patient Location: E HR:96 bpm ECG Measurements Heart Rate 96 AXIS RI 131 P 57 QRSd 79 QRS 72 QT 346 T 42 QTc 438 Conclusion Sinus rhythm...normal P axis, V-rate 60- 99. Sinus. Normal axis. No STEMI. I have reviewed and interpreted ECG and agree with software generated interpretation.
--- NOTE | 2022-10-30 20:55 | ED.GENADUL_ITS ---
Discharge Plan Disposition Patient Disposition: Admit to [facility] Condition: Stable Discharge Details Clinical Impression: Acute asthma exacerbation Admit Date/Time: 10/30/22 22:36 Admit Provider: Mono Jacobo Attending Provider: Mono Jacobo Primary Care Provider: BRYCE SMITH ED Provider: Ela Bean Discharge Data Discharge Date/Time-TO BE ENTERED AT DEPARTURE: 10/30/22 23:28 Medical Decision Making 2049 -- 46-year-old female with a history of asthma presents for cough and shortness of breath for the past few days. Of note, patient was admitted here last month 10/10/22 for an acute asthma exacerbation and a possible pneumonitis and treated with nebs, steroids and antibiotics. She was ultimately seen by Dr. Griffith who thought that she less likely had pneumonia and was also concerned about possible fluid overload and a BMP was noted to be 1800 and she had an echocardiogram with an EF of 53%. Plan per Dr. Griffith was for outpatient PFTs to rule out possible COPD as she has not had a formal diagnosis of this. Patient ultimately improved on her admission and was sent home on prednisone and Dulera. Oxygen saturation for EMS 91% which improved to 99% after DuoNeb. Patient has diminished breath sounds throughout. Oxygen saturation 100% while receiving DuoNeb in the ED. She is afebrile. Her blood pressure is moderately elevated. Her heart rate is in the 90s. History and presentation does not appear consistent with PE, ACS or dissection. Considering her recent admission diagnoses, will obtain a fluvid, chest x-ray and give nebs, steroids and reassess. 2139 -- labs and imaging reviewed. White blood cell count 11.97. Troponin negative. BNP 998. Chest x-ray no obvious acute disease and appears better compared to previous last month. Patient reassessed and she denies any improvement. Oxygen saturation on 2 L nasal cannula after return from radiology is 90 to 91%. She continues to have diminished breath sounds and wheezing throughout. We will give a 5 mg albuterol neb and reassess. 2219 --patient reassessed and she states she does not feel better. She has significant wheezing and rhonchi throughout. Her oxygen saturation is 99% on 2 L after albuterol neb. Will place on room air to observe oxygen saturation. 2224 --while on room air, oxygen saturation diminished to 88%. Pt placed back on 1 L and oxygen increased to 94%. Will plan for admission for observation, neb treatment, steroids and possible pulmonary re-evaluation. Case discussed with Dr. Jacobo who accepts patient for admission. As she still has a elevated BNP and concern about possible mild edema on x-ray, will give a dose of Lasix. Medical Records Medical records reviewed: Yes I reviewed the patient's medical records. Medical records narrative: 10/11/22 Echocardiogram Conclusion Mild concentric left ventricular hypertrophy and normal LV chamber size.? Estimated ejection fraction is borderline.? It is measured at 53%.? No segmental wall motion abnormalities are identified The right ventricle was not well visualized Left atrium is normal in size.? Right atrium is not well visualized Normal mitral valve with moderate regurgitation Trileaflet aortic valve with mild to moderate regurgitation Normal tricuspid valve with mild to moderate regurgitation.? Right ventricular systolic pressure could not be estimated Imaging Data Radiologic Study: Radiologist's impression: XR Chest Exam date and time: 10/30/2022 9:35 PM Age: 46 years old Clinical indication: Cough TECHNIQUE: Imaging protocol: Radiologic exam of the chest. Views: 2 views. COMPARISON: CR XR PORTABLE CHEST AP 10/10/2022 1:28 PM FINDINGS: Lungs:? Mild peribronchial thickening No consolidation. Pleural spaces: Unremarkable. No pleural effusion. No pneumothorax. Heart/Mediastinum:? Mild cardiomegaly. Bones/joints:? Chronic left 6th rib deformity IMPRESSION: Mild interstitial pneumonitis/bronchitis versus mild interstitial edema Mild cardiomegaly Lab Data Lab results reviewed: Yes I reviewed the patient's lab results. Labs: Laboratory Tests Range/Units 10/30/22 10/30/22 10/30/22 20:39 20:39 21:05 WBC (4.4-10.8) 10^3/uL RBC (3.93-5.22) 10^6/uL Hgb (11.2-15.7) g/dL Hct (36.0-46.0) % MCV (80-95) fL MCH (27.0-33.0) pg MCHC (32.0-36.0) % RDW (11.7-14.6) % Plt Count (130-400) 10^3/uL MPV (8.0-11.0) fL Immature Gran % Neutrophils % Lymphocytes % Monocytes % Eosinophils % Basophils % Nucleated RBC % (0.0-0.3) % Absolute Neutrophils (1.2-6.7) 10^3/uL Absolute Lymphocytes (1.2-3.4) 10^3/uL Absolute Monocytes (0.1-0.8) 10^3/uL Absolute Eosinophils (0.0-0.7) 10^3/uL Absolute Basophils (0.0-0.2) 10^3/uL PT Cancelled INR Cancelled APTT Cancelled D-Dimer Cancelled Sodium (136-145) mmol/L 138 Potassium (3.5-5.1) mmol/L 4.1 Chloride (98-107) mmol/L 100 Carbon Dioxide (21.0-32.0) mmol/L 36.5 H Anion Gap (3-11) mmol/L 1.5 L BUN (7-18) mg/dL 13 Creatinine (0.55-1.02) mg/dL 0.9 Est GFR (CKD-EPI 2020) (mL/min/1.73m2) 79.35 Glucose (74-106) mg/dL 297 H Calcium (8.5-10.1) mg/dL 8.4 L Magnesium (1.8-2.4) mg/dL 1.8 Total Bilirubin (0.2-1.0) mg/dL 0.2 AST (15-37) U/L 7 L ALT (14-59) U/L 11 L Alkaline Phosphatase (46-116) U/L 97 Troponin I (<or=60) ng/L < 50 NT-Pro-B Natriuret Pep Cancelled Total Protein (6.4-8.2) g/dL 7.0 Albumin (3.4-5.0) g/dL 2.9 L COVID-19 Source SARS-CoV-2 (PCR) (Negative) Influenza Type A (PCR) (Negative) Influenza Type B (PCR) (Negative) RSV (PCR) (Negative) Range/Units 10/30/22 10/30/22 10/30/22 21:05 21:05 21:15 WBC (4.4-10.8) 10^3/uL 11.97 H RBC (3.93-5.22) 10^6/uL 4.09 Hgb (11.2-15.7) g/dL 11.5 Hct (36.0-46.0) % 36.2 MCV (80-95) fL 89 MCH (27.0-33.0) pg 28.1 MCHC (32.0-36.0) % 31.8 L RDW (11.7-14.6) % 16.9 H Plt Count (130-400) 10^3/uL 211 MPV (8.0-11.0) fL 9.8 Immature Gran % 0.9 Neutrophils % 66.2 Lymphocytes % 28.2 Monocytes % 3.6 Eosinophils % 0.8 Basophils % 0.3 Nucleated RBC % (0.0-0.3) % 0.0 Absolute Neutrophils (1.2-6.7) 10^3/uL 7.92 H Absolute Lymphocytes (1.2-3.4) 10^3/uL 3.38 Absolute Monocytes (0.1-0.8) 10^3/uL 0.43 Absolute Eosinophils (0.0-0.7) 10^3/uL 0.10 Absolute Basophils (0.0-0.2) 10^3/uL 0.04 PT INR APTT D-Dimer Sodium (136-145) mmol/L Potassium (3.5-5.1) mmol/L Chloride (98-107) mmol/L Carbon Dioxide (21.0-32.0) mmol/L Anion Gap (3-11) mmol/L BUN (7-18) mg/dL Creatinine (0.55-1.02) mg/dL Est GFR (CKD-EPI 2020) (mL/min/1.73m2) Glucose (74-106) mg/dL Calcium (8.5-10.1) mg/dL Magnesium (1.8-2.4) mg/dL Total Bilirubin (0.2-1.0) mg/dL AST (15-37) U/L ALT (14-59) U/L Alkaline Phosphatase (46-116) U/L Troponin I (<or=60) ng/L NT-Pro-B Natriuret Pep 998 H Total Protein (6.4-8.2) g/dL Albumin (3.4-5.0) g/dL COVID-19 Source Nasopharynx SARS-CoV-2 (PCR) (Negative) Negative Influenza Type A (PCR) (Negative) Negative Influenza Type B (PCR) (Negative) Negative RSV (PCR) (Negative) Negative Range/Units 10/30/22 23:40 WBC (4.4-10.8) 10^3/uL RBC (3.93-5.22) 10^6/uL Hgb (11.2-15.7) g/dL Hct (36.0-46.0) % MCV (80-95) fL MCH (27.0-33.0) pg MCHC (32.0-36.0) % RDW (11.7-14.6) % Plt Count (130-400) 10^3/uL MPV (8.0-11.0) fL Immature Gran % Neutrophils % Lymphocytes % Monocytes % Eosinophils % Basophils % Nucleated RBC % (0.0-0.3) % Absolute Neutrophils (1.2-6.7) 10^3/uL Absolute Lymphocytes (1.2-3.4) 10^3/uL Absolute Monocytes (0.1-0.8) 10^3/uL Absolute Eosinophils (0.0-0.7) 10^3/uL Absolute Basophils (0.0-0.2) 10^3/uL PT INR APTT D-Dimer Sodium (136-145) mmol/L Potassium (3.5-5.1) mmol/L Chloride (98-107) mmol/L Carbon Dioxide (21.0-32.0) mmol/L Anion Gap (3-11) mmol/L BUN (7-18) mg/dL Creatinine (0.55-1.02) mg/dL Est GFR (CKD-EPI 2020) (mL/min/1.73m2) Glucose (74-106) mg/dL Calcium (8.5-10.1) mg/dL Magnesium (1.8-2.4) mg/dL Total Bilirubin (0.2-1.0) mg/dL AST (15-37) U/L ALT (14-59) U/L Alkaline Phosphatase (46-116) U/L Troponin I (<or=60) ng/L Cancelled NT-Pro-B Natriuret Pep Total Protein (6.4-8.2) g/dL Albumin (3.4-5.0) g/dL COVID-19 Source SARS-CoV-2 (PCR) (Negative) Influenza Type A (PCR) (Negative) Influenza Type B (PCR) (Negative) RSV (PCR) (Negative) ECG Data Attestation: I personally reviewed and interpreted this ECG (s) as follows: Interpretation: rate of 96, sinus, normal axis, no stemi. Sign Out No HPI General Mode of arrival: EMS . Date/Time Provider Initiated Documentation: 10/30/22 20:38 . Limitations to Documentation: no limitations . Information obtained by: patient . HPI Narrative: Patient is a 46-year-old female with a history of asthma who presents for cough and shortness of breath for the past few days. Patient was admitted here a few weeks ago for an asthma exacerbation and a possible pneumonitis that was treated with antibiotics. Patient was seen by Dr. Griffith on this admission and it was thought that she less likely had pneumonia and antibiotics were stopped and patient improved and was discharged home on Dulera and prednisone. Patient states she finished her steroids and symptoms improved until her cough and shortness of breath returned a few days ago. She states she still smoking 5 cigarettes daily. She denies any fever. She states her cough has been dry. She denies any chest pain, vomiting, diarrhea, leg pain or swelling, recent travel or recent surgery. Related Data Home Medications Medication Instructions Recorded Confirmed dextroamphetamine-amphetamine ER 20 mg PO DAILY 01/18/20 10/30/22 10 mg 24hr capsule,extend release (Adderall XR) divalproex 500 mg tablet,delayed 1,000 mg PO QHS 01/18/20 10/30/22 release (Depakote) lisinopril 20 mg tablet 20 mg DAILY 01/18/20 10/30/22 melatonin 10 mg tablet 10 mg PO QHS 01/18/20 10/30/22 prazosin 2 mg capsule 3 mg PO QHS 01/18/20 10/30/22 risperidone 2 mg tablet (Risperdal) 2 mg BID 01/18/20 10/30/22 sertraline 100 mg tablet (Zoloft) 200 mg PO QAM 01/18/20 10/30/22 dulaglutide 3 mg/0.5 mL 1 device subcut QWEEK 10/10/22 10/30/22 subcutaneous pen injector (Trulicity) lorazepam 0.5 mg tablet 1 tab PO BID PRN PRN Anxiety 10/10/22 10/30/22 cholecalciferol (vitamin D3) 25 1,000 units PO DAILY #0 tabs 10/13/22 10/30/22 mcg (1,000 unit) tablet mometasone-formoterol HFA 100 2 puff inhalation BID #8.8 grams 10/13/22 10/30/22 mcg-5 mcg/actuation aerosol inhaler (Dulera) prednisone 20 mg tablet 40 mg PO DAILY #4 tabs 10/13/22 10/30/22 amlodipine 5 mg tablet (Norvasc) 5 mg PO DAILY #30 tabs 10/31/22 doxycycline hyclate 100 mg tablet 100 mg PO BID 5 days #10 tabs 10/31/22 prednisone 20 mg tablet 40 mg PO DAILY 5 days #10 tabs 10/31/22 Previous Rx's Medication Instructions Recorded cholecalciferol (vitamin D3) 25 1,000 units PO DAILY #0 tabs 10/13/22 mcg (1,000 unit) tablet mometasone-formoterol HFA 100 2 puff inhalation BID #8.8 grams 10/13/22 mcg-5 mcg/actuation aerosol inhaler (Dulera) prednisone 20 mg tablet 40 mg PO DAILY #4 tabs 10/13/22 amlodipine 5 mg tablet (Norvasc) 5 mg PO DAILY #30 tabs 10/31/22 doxycycline hyclate 100 mg tablet 100 mg PO BID 5 days #10 tabs 10/31/22 prednisone 20 mg tablet 40 mg PO DAILY 5 days #10 tabs 10/31/22 Allergies Allergy/AdvReac Type Severity Reaction Status Date / Time amoxicillin Allergy Nausea Unverified 10/30/22 20:49 bee pollen Allergy Hives Unverified 10/30/22 20:49 fluoxetine [From Prozac] Allergy Nausea Unverified 10/30/22 20:49 hazelnut Allergy Hives Unverified 10/30/22 20:49 abelox Allergy Hives Uncoded 10/30/22 20:49 General Stated Complaint: SOB ZACK: 2 PFSH All Active Problems (Updated 10/31/22 @ 21:15 by Vitaly Gómez MD) Acute bronchitis (Acute) Acute asthma exacerbation (Acute) Tobacco abuse (Chronic) Encounter for medication refill (Acute) Medical History (Updated 10/31/22 @ 21:15 by Vitaly Gómez MD) Acute asthma exacerbation Acute exacerbation of COPD with asthma Acute pneumonia ADHD Anxiety Bipolar disorder H/O suicide attempt Hypertension Hypoxia Non-insulin dependent diabetes mellitus Obesity (BMI 30.0-34.9) Surgical History S/P cholecystectomy Status post bilateral salpingectomy Family History Other Adopted Social History Smoking/Tobacco Use Status: Current every day Tobacco Type: cigarettes Smoking risk assessment performed?: Yes Alcohol Intake: never Substance use type: does not use Do you feel safe at home: Yes Do you feel safe in your relationship?: Yes Course Vital Signs Vital signs: Vital Signs Temperature 97.9 F 10/30/22 20:45 Pulse 103 H 10/30/22 20:45 Respiratory Rate 17 10/30/22 20:45 Blood Pressure 158/82 H 10/30/22 20:45 Pulse Oximetry 91 L 10/30/22 20:45 Temperature 97.9 F 10/30/22 20:45 Temperature Source Temporal Artery Scan 10/30/22 20:45 Pulse 103 H 10/30/22 20:45 Respiratory Rate 17 10/30/22 20:45 Respiratory Effort 10/30/22 20:45 Blood Pressure 158/82 H 10/30/22 20:45 Pulse Oximetry 91 L 10/30/22 20:45 Oxygen Delivery Method Room Air 10/30/22 20:45 Oxygen Flow Rate 0 10/30/22 20:45 Pain Level 0 10/30/22 20:45 Lab/Test Results Lab/Test Results: Laboratory Tests Range/Units 10/30/22 10/30/22 10/30/22 20:39 20:39 23:40 PT Cancelled INR Cancelled APTT Cancelled D-Dimer Cancelled Troponin I Cancelled NT-Pro-B Natriuret Pep Cancelled
[2022-10-30] MEDS: Albuterol/Ipratropium 3 ML UPD VIAL UPD (21:01)
[2022-10-30] MEDS: methylPREDNISolone SUCC 125 MG VIAL IVP (21:01)
[2022-10-30 21:16] LABS: Abs Immature Grans 0.11 10^3/uL (0.0-0.06); Absolute Monocyte Count 0.43 10^3/uL (0.1-0.8); Basophils % 0.3; Eosinophils % 0.8; HCT 36.2 % (36.0-46.0); HGB 11.5 g/dL (11.2-15.7); Immature Grans % 0.9; Lymphocytes % 28.2; MCH 28.1 pg (27.0-33.0); MCHC 31.8 % (32.0-36.0); MCV 89 fL (80-95); MPV 9.8 fL (8.0-11.0); Monocytes % 3.6; Neutrophils % 66.2; Platelet Count 211 10^3/uL (130-400); RBC 4.09 10^6/uL (3.93-5.22); RDW 16.9 % (11.7-14.6); RDW-SD 54.4 fL; WBC 11.97 10^3/uL (4.4-10.8)
[2022-10-30 21:17] LABS: Absolute Basophil Count 0.04 10^3/uL (0.0-0.2); Absolute Lymphocyte Count 3.38 10^3/uL (1.2-3.4); Absolute Neutrophil Count 7.92 10^3/uL (1.2-6.7)
--- NOTE | 2022-10-30 21:30 | DI.RAD_ITS ---
Exam(s) XR CHEST 2V PA LATERAL EXAM: XR CHEST 2V PA LATERAL CLINICAL HISTORY: cough, sob, r/o acute disease TECHNIQUE: 2D digital imaging was performed of the chest. Two images were obtained. PA and lateral views were obtained. COMPARISON: CR XR CHEST 2V PA LATERAL from 02/01/2022 FINDINGS: MEDIASTINUM: Normal. HEART: Upper limits of normal. PULMONARY VASCULATURE: Normal. LUNGS: Mild prominent interstitial markings present. There is peribronchial thickening bilaterally. No focal consolidation is seen. PLEURAL SPACE: No pleural effusion or pneumothorax. BONE:Within normal limits for the patient's age. There are old healed rib fractures. OTHER FINDINGS:Normal. IMPRESSION: Mild peribronchial thickening and interstitial process. This may represent a mild interstitial pneum onitis or interstitial edema. Please correlate clinically. DATA REPOSITORY: RADIATION DOSE DELIVERED:
[2022-10-30 21:33] LABS: ALT 11 U/L (14-59); AST 7 U/L (15-37); Albumin 2.9 g/dL (3.4-5.0); Alkaline Phosphatase 97 U/L (46-116); Anion Gap 1.5 mmol/L (3-11); BUN 13 mg/dL (7-18); Bilirubin, Total 0.2 mg/dL (0.2-1.0); CO2 36.5 mmol/L (21.0-32.0); CREATININE 0.9 mg/dL (0.55-1.02); Calcium 8.4 mg/dL (8.5-10.1); Chloride 100 mmol/L (98-107); Estimated GFR 79.35 (mL/min/1.73m2); Glucose 297 mg/dL (74-106); Magnesium 1.8 mg/dL (1.8-2.4); Potassium 4.1 mmol/L (3.5-5.1); Sodium 138 mmol/L (136-145); Troponin I < 50 ng/L (<or=60)
[2022-10-30 21:38] LABS: NT-proBNP 998 pg/mL (<300)
[2022-10-30] MEDS: Albuterol 2.5 MG/3 ML INH SOLN VIAL 5 MG UPD ×2 (21:55→22:53)
[2022-10-30 21:57] LABS: COVID-19 PCR Negative (Negative); Influenza A PCR Negative (Negative); Influenza B PCR Negative (Negative); RSV PCR Negative (Negative)
--- NOTE | 2022-10-30 21:57 | DI.VRAD_ITS ---
PROCEDURE INFORMATION: Exam: XR Chest Exam date and time: 10/30/2022 9:35 PM Age: 46 years old Clinical indication: Cough TECHNIQUE: Imaging protocol: Radiologic exam of the chest. Views: 2 views. COMPARISON: CR XR PORTABLE CHEST AP 10/10/2022 1:28 PM FINDINGS: Lungs: Mild peribronchial thickening No consolidation. Pleural spaces: Unremarkable. No pleural effusion. No pneumothorax. Heart/Mediastinum: Mild cardiomegaly. Bones/joints: Chronic left 6th rib deformity IMPRESSION: Mild interstitial pneumonitis/bronchitis versus mild interstitial edema Mild cardiomegaly Dictated and Authenticated by: Paco Wheat MD. Ordering:KYM Mahmood MD
[2022-10-30 22:14] LABS: Source Nasopharynx
--- NOTE | 2022-10-30 22:46 | W.PM.HP.N ---
Date of service: 10/30/22 Time of Service: 22:47 Assessment and Plan Assessment and plan (1) Acute asthma exacerbation: Status: Acute Assessment and plan: Cont Dulera (or therapeutic sub.). PRN albuterol or Duonebs. given IV steroid in ED. Consider a burst of oral steroids. Outpt PFts needed. (2) Tobacco abuse: Status: Acute Assessment and plan: Cessation is highly important if she wants to gain control of her pulmonary status. (3) Acute respiratory failure with hypoxia: Status: Acute Assessment and plan: As above Supplemental O2 as needed. (4) Bipolar disorder: Assessment and plan: Cont home psychiatric meds. Affect appropriate on admission. (5) Non-insulin dependent diabetes mellitus: Assessment and plan: She is on trulicity Add SS insulin correction dosing given likelyhood of glucose elevations d/t steroid. History of Present Illness History of Present Illness Chief Complaint: Shortness of breath and cough Narrative: This is a 46-year-old female with a history of asthma, questionably COPD, tobacco use disorder, obesity presented to the ED for cough and shortness of breath for the past few days. She was admitted on 10/10/22 at [facility] for acute resp failure and asthma exacerbation, possible PNA vs pulmonary edema. She was discharged on prednisone and Dulera. EMS reported her O2 saturation was 91%. She was administered a Duoneb treatment and it improved to ((%. WBC count 11.97. BNP 998. Fluvid negative. CXR w/o acute findings. She continued to repeat shortness of air. On 2L O2 per NC her saturation was 90-91%. She had diminished breath sounds with wheezing throughout. She felt no improvement with further respiratory treatements. Post-albuterol neb. treatment her O2 saturation improved to 99% on 2L. On RA she desaturated to 88%. She was given 20mg IV lasix. She denied CP/palpitations. No F/C. Admitted for observation and further treaments. Review of Systems All systems reviewed & are unremarkable except as noted in HPI and below PFSH All Active Problems Acute asthma exacerbation (Acute) Tobacco abuse (Acute) Acute respiratory failure with hypoxia (Acute) Acute exacerbation of COPD with asthma (Acute) Encounter for medication refill (Acute) Acute pneumonia (Acute) Acute asthma exacerbation (Acute) Hypoxia (Acute) Medical History ADHD Anxiety Bipolar disorder H/O suicide attempt Hypertension Non-insulin dependent diabetes mellitus Obesity (BMI 30.0-34.9) Surgical History S/P cholecystectomy Status post bilateral salpingectomy Family History Other Adopted Social History Smoking/Tobacco Use Status: Current every day Tobacco Type: cigarettes Smoking risk assessment performed?: Yes Alcohol Intake: never Substance use type: does not use Do you feel safe at home: Yes Do you feel safe in your relationship?: Yes Meds Allergies and Home Medications Allergies Allergy/AdvReac Type Severity Reaction Status Date / Time amoxicillin Allergy Nausea Unverified 10/30/22 20:49 bee pollen Allergy Hives Unverified 10/30/22 20:49 fluoxetine [From Prozac] Allergy Nausea Unverified 10/30/22 20:49 hazelnut Allergy Hives Unverified 10/30/22 20:49 abelox Allergy Hives Uncoded 10/30/22 20:49 Home Medications Medication Instructions Recorded Confirmed Type dextroamphetamine-amphetamine ER 20 mg PO DAILY 01/18/20 10/30/22 History 10 mg 24hr capsule,extend release (Adderall XR) divalproex 500 mg tablet,delayed 1,000 mg PO QHS 01/18/20 10/30/22 History release (Depakote) lisinopril 20 mg tablet 20 mg DAILY 01/18/20 10/30/22 History melatonin 10 mg tablet 10 mg PO QHS 01/18/20 10/30/22 History prazosin 2 mg capsule 3 mg PO QHS 01/18/20 10/30/22 History risperidone 2 mg tablet (Risperdal) 2 mg BID 01/18/20 10/30/22 History sertraline 100 mg tablet (Zoloft) 200 mg PO QAM 01/18/20 10/30/22 History dulaglutide 3 mg/0.5 mL 1 device subcut QWEEK 10/10/22 10/30/22 History subcutaneous pen injector (Trulicity) lorazepam 0.5 mg tablet 1 tab PO BID PRN PRN Anxiety 10/10/22 10/30/22 History cholecalciferol (vitamin D3) 25 1,000 units PO DAILY #0 tabs 10/13/22 10/30/22 Rx mcg (1,000 unit) tablet mometasone-formoterol HFA 100 2 puff inhalation BID #8.8 grams 10/13/22 10/30/22 Rx mcg-5 mcg/actuation aerosol inhaler (Dulera) prednisone 20 mg tablet 40 mg PO DAILY #4 tabs 10/13/22 10/30/22 Rx Exam Narrative Exam Narrative: Obese female that appears nontoxic. Const General: cooperative, acute distress mild and not anxious Nutritional Appearance: obese Orientation: alert and oriented x3 Eyes General: appearance normal, both eyes and all related structures Sclera: sclerae normal Resp Effort & Inspection: able to speak in complete sentences Auscultation: diminished lung sounds and wheezes Cardio Rate: tachycardic Rhythm: regular rhythm Heart Sounds: S1 normal and S2 normal GI Inspection: non-distended Palpation: soft Extrem General: no pedal edema and no calf tenderness Psych Mental Status: mental status grossly normal Speech and Movement: speech and movement normal Affect: normal affect Results Labs Result diagrams: 10/31/22 06:42 10/31/22 08:03 Labs: Laboratory Results - last 24 hr 10/30/22 10/30/22 10/30/22 20:39 20:39 21:05 WBC RBC Hgb Hct MCV MCH MCHC RDW Plt Count MPV Immature Gran % Neutrophils % Lymphocytes % Monocytes % Eosinophils % Basophils % Nucleated RBC % Absolute Neutrophils Absolute Lymphocytes Absolute Monocytes Absolute Eosinophils Absolute Basophils PT Cancelled INR Cancelled APTT Cancelled D-Dimer Cancelled Sodium 138 Potassium 4.1 Chloride 100 Carbon Dioxide 36.5 H Anion Gap 1.5 L BUN 13 Creatinine 0.9 Est GFR (CKD-EPI 2020) 79.35 Glucose 297 H Calcium 8.4 L Magnesium 1.8 Total Bilirubin 0.2 AST 7 L ALT 11 L Alkaline Phosphatase 97 Troponin I < 50 NT-Pro-B Natriuret Pep Cancelled Total Protein 7.0 Albumin 2.9 L COVID-19 Source SARS-CoV-2 (PCR) Influenza Type A (PCR) Influenza Type B (PCR) RSV (PCR) 10/30/22 10/30/22 10/30/22 21:05 21:05 21:15 WBC 11.97 H RBC 4.09 Hgb 11.5 Hct 36.2 MCV 89 MCH 28.1 MCHC 31.8 L RDW 16.9 H Plt Count 211 MPV 9.8 Immature Gran % 0.9 Neutrophils % 66.2 Lymphocytes % 28.2 Monocytes % 3.6 Eosinophils % 0.8 Basophils % 0.3 Nucleated RBC % 0.0 Absolute Neutrophils 7.92 H Absolute Lymphocytes 3.38 Absolute Monocytes 0.43 Absolute Eosinophils 0.10 Absolute Basophils 0.04 PT INR APTT D-Dimer Sodium Potassium Chloride Carbon Dioxide Anion Gap BUN Creatinine Est GFR (CKD-EPI 2020) Glucose Calcium Magnesium Total Bilirubin AST ALT Alkaline Phosphatase Troponin I NT-Pro-B Natriuret Pep 998 H Total Protein Albumin COVID-19 Source Nasopharynx SARS-CoV-2 (PCR) Negative Influenza Type A (PCR) Negative Influenza Type B (PCR) Negative RSV (PCR) Negative 10/30/22 23:40 WBC RBC Hgb Hct MCV MCH MCHC RDW Plt Count MPV Immature Gran % Neutrophils % Lymphocytes % Monocytes % Eosinophils % Basophils % Nucleated RBC % Absolute Neutrophils Absolute Lymphocytes Absolute Monocytes Absolute Eosinophils Absolute Basophils PT INR APTT D-Dimer Sodium Potassium Chloride Carbon Dioxide Anion Gap BUN Creatinine Est GFR (CKD-EPI 2020) Glucose Calcium Magnesium Total Bilirubin AST ALT Alkaline Phosphatase Troponin I Cancelled NT-Pro-B Natriuret Pep Total Protein Albumin COVID-19 Source SARS-CoV-2 (PCR) Influenza Type A (PCR) Influenza Type B (PCR) RSV (PCR) Last Vital Signs Temp 36.6 C 10/30/22 20:45 Pulse 103 H 10/30/22 20:45 Resp 32 H 10/30/22 21:11 BP 158/82 H 10/30/22 20:45 Pulse Ox 100 10/30/22 21:01
[2022-10-30] MEDS: Furosemide 40 MG/4 ML VIAL IVP (22:53)
[2022-10-30] MEDS: Doxycycline Hyclate 100 MG CAP PO (23:58)
[2022-10-30] MEDS: Prazosin 1 MG CAP 3 MG PO (23:59)
[2022-10-30] MEDS: risperiDONE 1 MG TAB 4 MG PO (23:59)
[2022-10-31] VITALS (8 sets, daily range): BP systolic 156–173; BP diastolic 88–101; PULSE 88–100; RESP 8–24; TEMP 36.6–37.1; O2SAT 92–96
[2022-10-31] MEDS: Divalproex 125 MG TABEC 1000 MG PO (00:23)
[2022-10-31] MEDS: Melatonin 3 MG TAB 9 MG PO (00:25)
[2022-10-31] MEDS: Albuterol 2.5 MG/3 ML INH SOLN VIAL UPD (06:12)
[2022-10-31 07:27] LABS: Abs Immature Grans 0.13 10^3/uL (0.0-0.06); Absolute Basophil Count 0.02 10^3/uL (0.0-0.2); Absolute Lymphocyte Count 1.62 10^3/uL (1.2-3.4); Absolute Monocyte Count 0.17 10^3/uL (0.1-0.8); Basophils % 0.2; HCT 36.8 % (36.0-46.0); HGB 11.7 g/dL (11.2-15.7); Immature Grans % 1.2; Lymphocytes % 15.5; MCH 27.7 pg (27.0-33.0); MCHC 31.8 % (32.0-36.0); MCV 87 fL (80-95); MPV 9.7 fL (8.0-11.0); Monocytes % 1.6; Neutrophils % 81.5; Platelet Count 215 10^3/uL (130-400); RBC 4.23 10^6/uL (3.93-5.22); RDW 16.8 % (11.7-14.6); RDW-SD 52.3 fL; WBC 10.44 10^3/uL (4.4-10.8)
[2022-10-31] MEDS: Albuterol/Ipratropium 3 ML UPD VIAL UPD ×2 (07:40→14:25)
[2022-10-31 08:21] LABS: Anion Gap 7.8 mmol/L (3-11); BUN 14 mg/dL (7-18); CO2 32.2 mmol/L (21.0-32.0); Calcium 8.8 mg/dL (8.5-10.1); Chloride 96 mmol/L (98-107); Estimated GFR 69.93 (mL/min/1.73m2); Glucose 293 mg/dL (74-106); Potassium 4.6 mmol/L (3.5-5.1); Sodium 136 mmol/L (136-145)
[2022-10-31] MEDS: Lisinopril 20 MG TAB PO (08:32)
[2022-10-31] MEDS: risperiDONE 1 MG TAB 2 MG PO (08:32)
[2022-10-31] MEDS: Sertraline 100 MG TAB 200 MG PO (08:32)
--- NOTE | 2022-10-31 10:14 | INITIAL_ITS ---
- If Service Date Differs Date of service: 10/31/22 Time of Service: 10:14 Care Management Initial Assess REASON FOR HOSPITALIZATION:: Acute asthma exacerbation PAST MEDICAL HISTORY/PAST SURGICAL HISTORY:: All Active Problems . Acute asthma exacerbation (Acute). Tobacco abuse (Acute). Acute respiratory failure with hypoxia (Acute). Acute exacerbation of COPD with asthma (Acute). Encounter for medication refill (Acute). Acute pneumonia (Acute). Acute asthma exacerbation (Acute). Hypoxia (Acute). Medical History . ADHD. Anxiety. Bipolar disorder. H/O suicide attempt. Hypertension. Non- insulin dependent diabetes mellitus. Obesity (BMI 30.0-34.9). Surgical History . S/P cholecystectomy. Status post bilateral salpingectomy PREVIOUS FUNCTIONAL STATUS/SOCIAL/FAMILY SUPPORTS:: Cecilia lives in [facility] with her Dheeraj. Cecilia does not drive and uses [facility] for transportation. Cecilia shares that she is disabled due to her anxiety and depression. She has therapy through [facility] at [facility] and feels that her symptoms have been stable for quite some time. She is independent at baseline. CURRENT FUNCTIONAL STATUS:: Cecilia was sititng up on the side of her bed fully dressed when CM met with her. She was preparing for discharge and CM coordinated transportatoion with [facility] for her retrurn. Cecilia was very pleasant and denied the need for any additional services. ADVANCE DIRECTIVES:: none on file Has patient been provided with info about the portal/API?: Yes Did the patient sign up for the portal?: No CODE STATUS:: Full Code INSURANCE COVERAGE / FINANCIAL ISSUES:: [facility] Medicare Replacement plan. Medicaid CURRENT HOME/COMMUNITY SERVICES/EQUIPMENT:: Services through [facility]. SSDI. [facility] for transportation PRIMARY CARE PHYSICIAN:: Julianna Singh POTENTIAL DISCHARGE NEEDS:: follow up with PCP and plan of care PATIENT/FAMILY EDUCATION NEEDS:: review of dicharge instructions, limitations, follow up plan, Ask Me Three TRANSPORTATION:: via private vehicle with PCP PLAN:: Cecilia will discharge home with no new services. She will follow up with her community providers and plan of care and transport with friends/family.
[2022-10-31] MEDS: Doxycycline Hyclate 100 MG CAP PO (10:34)
[2022-10-31] MEDS: LORazepam 0.5 MG TAB PO (10:34)
[2022-10-31] MEDS: Insulin Aspart 300 UNITS/3 ML PEN SC (12:07)
[2022-10-31] MEDS: amLODIPine 5 MG TAB PO (12:07)
--- NOTE | 2022-10-31 14:50 | CHAPLAIN ---
Cecilia remembered that we met during her last admission. She was resting in bed when I visited today. She told me that she did not move to [place], as she had planned when she was last here. I will continue to visit.
--- NOTE | 2022-10-31 15:24 | W.PM.DS.N ---
Date of service: 10/31/22 Time of Service: 15:24 DS: Diagnosis Discharge Diagnosis (1) Acute asthma exacerbation: Status: Acute Asessment and Plan: patient presented w/ acute dyspnea, cough, wheezing and mild hypoxemia w SPO2 of 88% on RA. She was admitted to med/surgical floor after failure to significantly imrprove in the ED after repeated DuoNeb treatments, steroids and she required supplemental oxygen of nasal cannula at 1 to 2 LPM to maintain her oxygen saturation over 92%. she was admitted and put on prednisone and doxycycline after she received methylprednisolone 125 mg iv in the ER. She also recieved lasix 40 mg iv x one dose out of concern for CHF. Patient had prior evaluation when hospitalized on 10/10 to 10/13/22 when she was diagnosed w/ acute exacerbation of COPD w/ asthma and pneumonitis and was treated w/ antibiotics, steroids and received lasix for possible fluid overload. During that admission she had echocardiogram that demonstrated the following: Mild concentric left ventricular hypertrophy and normal LV chamber size.? Estimated ejection fraction is borderline.? It is measured at 53%.? No segmental wall motion abnormalities are identified The right ventricle was not well visualized Left atrium is normal in size.? Right atrium is not well visualized Normal mitral valve with moderate regurgitation Trileaflet aortic valve with mild to moderate regurgitation Normal tricuspid valve with mild to moderate regurgitation.? Right ventricular systolic pressure could not be estimated Of note: doppler parameters for diastolic dysfunction were not obtained, i.e. E/e' and JUDY however, the fact that she has concentric LVH alone indicates that she has HFPEF and further her TR velocity is 3.03 m/s which is over 2.8 m/s indicative of HFPEF. Patient improved overnight and ambulatory pulse oximetry showed no oxygen desaturations and she was requesting to return home. She was discharged on 5 day course of prednisone 40 mg daily along w/ 5 days of doxycycline. for her her HFPEF, she should work on controlling her HTN. Her BP was significantly elevated during this admission (up to 173/101 but improved after intitation of norvasc 5 mg and follow up BP prior to dc was down to 156/88. She may need further adjustment in her bp medications and may need technician terminal and repeater diuretics to control both her BP as well as her volume status. (2) Acute bronchitis: Status: Acute Asessment and Plan: dc home on 5 days of doxycycline (3) Tobacco abuse: Status: Chronic Asessment and Plan: patient states that she is down to 5 cigarettes per day. She is encouraged to quit smoking and should discuss cessation strategies w/ her PCP (4) Acute respiratory failure with hypoxia: Status: Resolved Asessment and Plan: resolved (5) Non-insulin dependent diabetes mellitus: Asessment and Plan: no change in her home meds (6) Hypertension: Asessment and Plan: cont. lisinopril and prazosin; norvasc 5 mg daily was added. consider dc prazosin and putting her on diuretics such as spironolactone. Discharge Plan Disposition Patient Disposition: Home Condition: Improving Discharge Details Reason For Visit: Bronchitis, Acute Resp Failure Admit Date/Time: 10/30/22 22:36 Admit Provider: Mono Jacobo Attending Provider: Mono Jacobo Primary Care Provider: BRYCE SMITH Home Meds and New Rx's Prescriptions: New doxycycline hyclate 100 mg tablet 100 mg PO BID 5 Days Qty: 10 0RF prednisone 20 mg tablet 40 mg PO DAILY 5 Days Qty: 10 0RF amlodipine [Norvasc] 5 mg tablet 5 mg PO DAILY Qty: 30 0RF Continued lisinopril 20 mg Tablet 20 mg DAILY sertraline [Zoloft] 100 mg Tablet 200 mg PO QAM divalproex [Depakote] 500 mg Tablet,Delayed Release (Dr/Ec) 1,000 mg PO QHS risperidone [Risperdal] 2 mg Tablet 2 mg BID Rx Instructions: take 2 mg in AM, 4 mg in PM dextroamphetamine-amphetamine [Adderall XR] 10 mg Capsule,Extended Release 24hr 20 mg PO DAILY prazosin 2 mg Capsule 3 mg PO QHS melatonin 10 mg Tablet 10 mg PO QHS lorazepam 0.5 mg tablet 1 tab PO BID PRN PRN (Reason: Anxiety) Label Comments: TAKE ONE TABLET BY MOUTH TWICE A DAY NEEDED FOR ANXIETY Trulicity 3 mg/0.5 mL pen injector 1 device SUBCUT QWEEK Label Comments: INJECT ONCE WEEKLY DIRECTED Dulera 100-5 mcg/actuation HFA aerosol inhaler 2 puff inhalation BID Qty: 8.8 0RF cholecalciferol (vitamin D3) 25 mcg (1,000 unit) Tablet 1,000 units PO DAILY Qty: 0 0RF prednisone 20 mg Tablet 40 mg PO DAILY Qty: 4 0RF Rx Instructions: Next the morning of 10/14/22. Discharge Instructions Instructions: Acute Bronchitis (GEN), How to Use a Nebulizer (DC), Bronchospasm (DC), Hypertension and Diabetes (DC), Acute Respiratory Failure (GEN) Additional Instructions: You were treated for exacerbation of your asthma and acute bronchitis. You have been prescribed an antibiotic, doxycycline which you should take until completed. You have also been put on prednisone for your asthma. You should take this until it is gone. Use your albuterol nebulizer every 4 hr while awake as needed for bronchospasm. You may take a cough medicine such as Robitussin and you may use Tessalon Perles for your cough. YOur blood pressure was found to be rather elevated (up to 173/110) and you have been started on amlodipine to try to bring this back under control. You bp when you were discharged was starting to respond and was down to 156/88. Continue taking your previous blood pressure medications including lisinopril and prazosin. Get a blood pressure machine to monitor your blood pressure at home and try to quit smoking. Ceasing to smoke will help w/ both your asthma and your blood pressure. Please follow up w/ your primary care provider next week Stand Alone Forms: Nursing Discharge Form Referrals: BRYCE SMITH NP [Primary Care Provider] - 11/07/22 2:00 pm Activity:: Activity as Tolerated Equipment/Supplies:: No Equipment Needed Diet:: Carb Counting Discharge Orders Discharge Orders: Discharge Order (Routine); Ordered 10/31/22 Ordered By: Vitaly Gómze Discharge Data Discharge Date/Time-TO BE ENTERED AT DEPARTURE: 10/31/22 16:26 DS: Summary Time Spent with Patient providing and/or coordinating discharge services: Less than 30 minutes Status at Discharge Functional status at discharge: independent ambulation Overall status at discharge: patient is progressing back to baseline Mental Status: mental status grossly normal Speech and Movement: speech and movement normal Mood: congruent mood Affect: normal affect Exam Narrative Exam Narrative: alert, oriented x 3 No acute respiratory distress, somewhat hoarse but breathing is calm/nonlabored; no accessory respiratory muscle use; able to talk in complete paragraphs Lungs: diffuse end expiratory wheezes Heart: regular no murmur Abdomen: obese, soft, nontender Legs/feet/hands: no edema Psych Mental Status: mental status grossly normal Speech and Movement: speech and movement normal Mood: congruent mood Affect: normal affect DS: Data Vitals/I&O Vitals and I&O: Vital Signs Temperature 37 C 10/31/22 11:31 Temperature Source Tympanic 10/31/22 11:31 Pulse 96 H 10/31/22 14:25 Pulse Rhythm Regular 10/31/22 06:40 Pulse 107 H 10/30/22 23:20 Respiratory Rate 24 10/31/22 11:31 Respiratory Effort 10/31/22 06:40 Respiratory Depth Normal 10/31/22 06:40 Respiratory Pattern Normal 10/31/22 06:40 Blood Pressure 165/92 H 10/31/22 11:31 Blood Pressure Mean 92 10/30/22 23:16 Pulse Oximetry 92 10/31/22 14:25 Oxygen Delivery Method Room Air 10/31/22 14:25 Oxygen Flow Rate 0 10/31/22 14:25 Pain Level 0 10/30/22 23:44 Intake & Output 10/30/22 10/31/22 10/31/22 23:59 11:59 23:59 Intake Total 240 / 240 Output Total 500 / 500 Balance -500 / -500 240 / 240 Weight 93.3 kg 91 kg Intake: Oral 240 / 240 Output: Urine 500 / 500 Other: Urine Color Pale Yellow Yellow Urine Appearance Clear Clear Urine Odor None Comment pT was getting up to use toilet when COVER STRIPPER went in room no hat Stool Size Moderate Stool Characteristics Soft Formed Voiding Methods Toilet Toilet Toilet Data Completed and Pending Labs on day of discharge: Labs from last 24 hours 10/31/22 10/31/22 10/31/22 08:03 06:42 06:42 WBC 10.44 RBC 4.23 Hgb 11.7 Hct 36.8 MCV 87 MCH 27.7 MCHC 31.8 L RDW 16.8 H Plt Count 215 MPV 9.7 Immature Gran % 1.2 Neutrophils % 81.5 Lymphocytes % 15.5 Monocytes % 1.6 Eosinophils % 0.0 Basophils % 0.2 Nucleated RBC % 0.0 Absolute Neutrophils 8.50 H Absolute Lymphocytes 1.62 Absolute Monocytes 0.17 Absolute Eosinophils 0.00 Absolute Basophils 0.02 PT INR APTT D-Dimer Sodium 136 Cancelled Potassium 4.6 Cancelled Chloride 96 L Cancelled Carbon Dioxide 32.2 H Cancelled Anion Gap 7.8 Cancelled BUN 14 Cancelled Creatinine 1.0 Cancelled Est GFR (CKD-EPI 2020) 69.93 Cancelled Glucose 293 H Cancelled Calcium 8.8 Cancelled Magnesium Total Bilirubin AST ALT Alkaline Phosphatase Troponin I NT-Pro-B Natriuret Pep Total Protein Albumin COVID-19 Source SARS-CoV-2 (PCR) Influenza Type A (PCR) Influenza Type B (PCR) RSV (PCR) 10/30/22 10/30/22 10/30/22 23:40 21:15 21:05 WBC RBC Hgb Hct MCV MCH MCHC RDW Plt Count MPV Immature Gran % Neutrophils % Lymphocytes % Monocytes % Eosinophils % Basophils % Nucleated RBC % Absolute Neutrophils Absolute Lymphocytes Absolute Monocytes Absolute Eosinophils Absolute Basophils PT INR APTT D-Dimer Sodium Potassium Chloride Carbon Dioxide Anion Gap BUN Creatinine Est GFR (CKD-EPI 2020) Glucose Calcium Magnesium Total Bilirubin AST ALT Alkaline Phosphatase Troponin I Cancelled NT-Pro-B Natriuret Pep 998 H Total Protein Albumin COVID- Source Nasopharynx SARS-CoV-2 (PCR) Negative Influenza Type A (PCR) Negative Influenza Type B (PCR) Negative RSV (PCR) Negative 10/30/22 10/30/22 10/30/22 21:05 21:05 20:39 WBC 11.97 H RBC 4.09 Hgb 11.5 Hct 36.2 MCV 89 MCH 28.1 MCHC 31.8 L RDW 16.9 H Plt Count 211 MPV 9.8 Immature Gran % 0.9 Neutrophils % 66.2 Lymphocytes % 28.2 Monocytes % 3.6 Eosinophils % 0.8 Basophils % 0.3 Nucleated RBC % 0.0 Absolute Neutrophils 7.92 H Absolute Lymphocytes 3.38 Absolute Monocytes 0.43 Absolute Eosinophils 0.10 Absolute Basophils 0.04 PT Cancelled INR Cancelled APTT Cancelled D-Dimer Cancelled Sodium 138 Potassium 4.1 Chloride 100 Carbon Dioxide 36.5 H Anion Gap 1.5 L BUN 13 Creatinine 0.9 Est GFR (CKD-EPI 2020) 79.35 Glucose 297 H Calcium 8.4 L Magnesium 1.8 Total Bilirubin 0.2 AST 7 L ALT 11 L Alkaline Phosphatase 97 Troponin I < 50 NT-Pro-B Natriuret Pep Total Protein 7.0 Albumin 2.9 L COVID-19 Source SARS-CoV-2 (PCR) Influenza Type A (PCR) Influenza Type B (PCR) RSV (PCR) 10/30/22 20:39 WBC RBC Hgb Hct MCV MCH MCHC RDW Plt Count MPV Immature Gran % Neutrophils % Lymphocytes % Monocytes % Eosinophils % Basophils % Nucleated RBC % Absolute Neutrophils Absolute Lymphocytes Absolute Monocytes Absolute Eosinophils Absolute Basophils PT INR APTT D-Dimer Sodium Potassium Chloride Carbon Dioxide Anion Gap BUN Creatinine Est GFR (CKD-EPI 2020) Glucose Calcium Magnesium Total Bilirubin AST ALT Alkaline Phosphatase Troponin I NT-Pro-B Natriuret Pep Cancelled Total Protein Albumin COVID-19 Source SARS-CoV-2 (PCR) Influenza Type A (PCR) Influenza Type B (PCR) RSV (PCR) PFSH All Active Problems (Updated 10/31/22 @ 21:15 by Vitaly Gómez MD) Acute bronchitis (Acute) Acute asthma exacerbation (Acute) Tobacco abuse (Chronic) Encounter for medication refill (Acute) Medical History (Updated 10/31/22 @ 21:15 by Vitaly Gómez MD) Acute asthma exacerbation Acute exacerbation of COPD with asthma Acute pneumonia ADHD Anxiety Bipolar disorder H/O suicide attempt Hypertension Hypoxia Non-insulin dependent diabetes mellitus Obesity (BMI 30.0-34.9) Surgical History S/P cholecystectomy Status post bilateral salpingectomy Family History Other Adopted Social History Smoking/Tobacco Use Status: Current every day Tobacco Type: cigarettes Smoking risk assessment performed?: Yes Alcohol Intake: never Substance use type: does not use Do you feel safe at home: Yes Do you feel safe in your relationship?: Yes
--- NOTE | 2022-10-31 16:39 | PDOC.CMDIS ---
- If Service Date Differs Date of service: 10/31/22 Time of Service: 16:39 LACE Index Scoring Tool - Questions: Length of Stay (in days): 1 Acuity (Admit via E.D.?): Yes Comorbidities: Diabetes w/o Complication, Chronic Pulmonary Disease E.D. Visits: 2 - Answers: Total Score: 9 Risk of Readmission: Low Risk Care Management Discharge Reason for Hospitalization: Acute asthma exacerbation Discharge Plan: Cecilia will discharge home with no new services. She will follow up with her community providers and plan of care and transport with friends/family. Patient/Family Education Needs: review of dicharge instructions, limitations, follow up plan, Ask Me Three Services Needed at Discharge: Transportation
== END 2022-10-31 16:26 | disposition home or self-care (01) ==
LOC: ER 23:30 → MS 23:31
PROVIDERS: Registered Nurse Emergency; Admitting Provider Family Medicine; Emergency Provider Physician Assistant; PCP Nurse Practitioner Family; Visit Provider Family Medicine
DX: J20.9 Acute bronchitis, unspecified (principal); J45.901 Unspecified asthma with (acute) exacerbation; J96.01 Acute respiratory failure with hypoxia; J44.0 Chronic obstructive pulmonary disease with (acute) lower respiratory infection; E11.9 Type 2 diabetes mellitus without complications; E66.9 Obesity, unspecified; I10 Essential (primary) hypertension; I08.0 Rheumatic disorders of both mitral and aortic valves; F31.9 Bipolar disorder, unspecified; F17.210 Nicotine dependence, cigarettes, uncomplicated; Z68.37 Body mass index [BMI] 37.0-37.9, adult; Z79.85 Long-term (current) use of injectable non-insulin antidiabetic drugs; Z79.899 Other long term (current) drug therapy; Z20.822 Contact with and (suspected) exposure to COVID-19
CPT/HCPCS: 36415; 80048; 80053; 87637; 93005; 94618; 94640; 96372; 96374; 96375; 99284; 99285; 71046; 83735; 83880; 84484; 85025; 85379; 85610; 85730; 93010; 99217; 99219; G0378; J1940; J2930; J7613; J7620

== ENCOUNTER 2022-11-05 20:06 | Inpatient (IN) | payer MEDICARE, MEDICAID, SELFPAY ==
--- NOTE | 2022-11-05 20:00 | RT.EKG_ITS ---
APPROVED REPORT Exam: Resting ECG Reason for Exam: short of breath Patient Location: E HR:88 bpm ECG Measurements Heart Rate 88 AXIS VA 126 P 62 QRSd 81 QRS 82 QT 358 T 46 QTc 433 Conclusion Sinus rhythm...normal P axis, V-rate 60- 99 Anteroseptal infarct, old...Q >40mS, V1-V2 Physician: no stemi, minimal elevtion in V2, but this is unchanged from prior and there are no associ ated depressions.
[2022-11-05 20:04] VITALS: BP 127/72; PULSE 94; RESP 16; TEMP 37; O2SAT 91
[2022-11-05 20:10] VITALS: RESP 18
--- NOTE | 2022-11-05 20:15 | DI.CT_ITS ---
Exam(s) CT CHEST PE CTA EXAM: CT CHEST PE CTA CLINICAL HISTORY: worsening cough, r/o PE. TECHNIQUE: Imaging Protocol: Axial CT angiography was performed with multi-slice acquisition and mu lti-planar and/or 3D reconstructions. CONTRAST MATERIAL: Intravenous: Omnipaque 350 contrast volume:85 mL COMPARISON: CR,XR XR CHEST 2V PA LATERAL from 10/30/2022 FINDINGS: Tracheobronchial tree: Patent where visualized. Pulmonary parenchyma: Bilateral ground-glass opacities are present. No focal consolidation is presen t. No architectural distortion. Pulmonary Arteries: No evidence of filling defect to suggest pulmonary emboli. Mediastinum and Nadeen: No dominant adenopathy or fluid collection. The esophagus is unremarkable. Visualized thyroid gland: Unremarkable. Pleura: No effusion or pneumothorax. Heart: Mild cardiomegaly. No coronary artery calcifications are seen. No pericardial effusion. Aorta: Thoracic aorta non-dilated. No evidence of dissection. Mild atherosclerosis. Upper abdomen: Status post cholecystectomy. Soft tissues: Unremarkable. Bones: Within normal limits for the patient's age.There are old healed bilateral rib fractures IMPRESSION: 1. No evidence of pulmonary embolism, thoracic aortic dissection or aneurysm. 2. Bilateral diffuse ground-glass opacities. An infectious or inflammatory process should be conside red. 3. Mild cardiomegaly. RADIATION DOSE DELIVERED: 606.87mGy.cm Total DLP DATA REPOSITORY: All CT scans at this facility are submitted to the National Radiology Data Registry (NRDR) Dose Index Registry (DIR) with the [employer] ([employer]). RADIATION OPTIMIZATION: All CT scans at this facility use at least one of these dose optimization te chniques: automated exposure control; mA and/or kV adjustment per patient size (includes targeted exa ms where dose is matched to clinical indication); or iterative reconstruction.
[2022-11-05 20:26] LABS: Abs Immature Grans 0.22 10^3/uL (0.0-0.06); Absolute Basophil Count 0.03 10^3/uL (0.0-0.2); Absolute Monocyte Count 0.69 10^3/uL (0.1-0.8); Absolute Neutrophil Count 9.94 10^3/uL (1.2-6.7); Basophils % 0.2; HCT 40.8 % (36.0-46.0); HGB 12.8 g/dL (11.2-15.7); Immature Grans % 1.6; Lymphocytes % 22.7; MCH 27.5 pg (27.0-33.0); MCHC 31.4 % (32.0-36.0); MCV 88 fL (80-95); Monocytes % 4.9; Neutrophils % 70.6; Platelet Count 269 10^3/uL (130-400); RBC 4.66 10^6/uL (3.93-5.22); RDW-SD 53.6 fL; WBC 14.08 10^3/uL (4.4-10.8)
[2022-11-05 20:34] LABS: BE (Venous) 11 mmol/L (-2-3); HCO3 (Venous) 36 mmol/L (23-28); O2 Sat (Venous) 79 %; TCO2 (Venous) 37 mmol/l (24-29); pCO2 (Venous) 54 mmHg (41-51); pH (Venous) 7.43 (7.31-7.41); pO2 (Venous) 44 mmHg
[2022-11-05] MEDS: Albuterol/Ipratropium 3 ML UPD VIAL 6 ML UPD (20:44)
[2022-11-05 20:55] LABS: ALT 14 U/L (14-59); AST 9 U/L (15-37); Albumin 3.3 g/dL (3.4-5.0); Alkaline Phosphatase 101 U/L (46-116); Anion Gap 4.8 mmol/L (3-11); BUN 13 mg/dL (7-18); Bilirubin, Total 0.3 mg/dL (0.2-1.0); CO2 34.2 mmol/L (21.0-32.0); CREATININE 0.8 mg/dL (0.55-1.02); Calcium 9.2 mg/dL (8.5-10.1); Chloride 93 mmol/L (98-107); Glucose 222 mg/dL (74-106); NT-proBNP 725 pg/mL (<300); Potassium 4.6 mmol/L (3.5-5.1); Sodium 132 mmol/L (136-145); Total Protein 7.9 g/dL (6.4-8.2); Troponin I < 50 ng/L (<or=60)
[2022-11-05 21:05] LABS: COVID-19 PCR Negative (Negative); Influenza A PCR Negative (Negative); Influenza B PCR Negative (Negative); RSV PCR Negative (Negative)
[2022-11-05 21:06] LABS: Source Nasopharynx
[2022-11-05] MEDS: Omnipaque 350 MG/ML 100 ML BTL IJ (21:31)
[2022-11-05] MEDS: Normal Saline - Diluent 50 ML VIAL IV (21:33)
[2022-11-05] MEDS: Normal Saline Flush 10 ML SYR IVP (21:34)
--- NOTE | 2022-11-05 21:41 | DI.VRAD_ITS ---
PROCEDURE INFORMATION: Exam: CTA Chest With Contrast Exam date and time: 11/05/2022 9:05 PM Age: 46 years old Clinical indication: Other: Worsening cough, R/O pe TECHNIQUE: Imaging protocol: Computed tomographic angiography of the chest with contrast. 3D rendering (Not supervised by radiologist): MIP and/or 3D reconstructed images were created by the technologist. Radiation optimization: All CT scans at this facility use at least one of these dose optimization techniques: automated exposure control; mA and/or kV adjustment per patient size (includes targeted exams where dose is matched to clinical indication); or iterative reconstruction. Contrast material: OMNIPAQUE 350; Contrast volume: 85 ml; Contrast route: INTRAVENOUS (IV); COMPARISON: CR XR CHEST 2V PA LATERAL 10/30/2022 9:35 PM FINDINGS: Pulmonary arteries: No main, lobar or segmental pulmonary arterial embolism. Aorta: No aortic aneurysm. Lungs: There are diffuse bilateral ground-glass opacities. No mass or consolidation. Pleural spaces: Unremarkable. No pneumothorax. No pleural effusion. Heart: The heart is enlarged. No pericardial effusion. Lymph nodes: Unremarkable. No enlarged lymph nodes. Bones/joints: Unremarkable. No acute fracture. Soft tissues: Unremarkable. IMPRESSION: 1. No pulmonary arterial embolism. 2. Diffuse bilateral ground-glass opacities, infectious or inflammatory in etiology. 3. Cardiomegaly. Dictated and Authenticated by: Maureen Joel MD. Ordering:YING Starr MD
--- NOTE | 2022-11-05 21:59 | W.ED.GENAD ---
Discharge Plan Disposition Patient Disposition: Admit to [facility] Condition: Stable Discharge Details Chief Complaint: Chest Pain Clinical Impression: COPD exacerbation, Pneumonia Primary Care Provider: BRYCE SMITH ED Provider: Matty Palacio Home Meds and New Rx's Prescriptions: No Action lisinopril 20 mg Tablet 20 mg DAILY sertraline [Zoloft] 100 mg Tablet 200 mg PO QAM divalproex [Depakote] 500 mg Tablet,Delayed Release (Dr/Ec) 1,000 mg PO QHS risperidone [Risperdal] 2 mg Tablet 2 mg BID Rx Instructions: take 2 mg in AM, 4 mg in PM dextroamphetamine-amphetamine [Adderall XR] 10 mg Capsule,Extended Release 24hr 20 mg PO DAILY prazosin 2 mg Capsule 3 mg PO QHS melatonin 10 mg Tablet 10 mg PO QHS lorazepam 0.5 mg tablet 1 tab PO BID PRN PRN (Reason: Anxiety) Label Comments: TAKE ONE TABLET BY MOUTH TWICE A DAY NEEDED FOR ANXIETY Trulicity 3 mg/0.5 mL pen injector 1 device SUBCUT QWEEK Label Comments: INJECT ONCE WEEKLY DIRECTED Dulera 100-5 mcg/actuation HFA aerosol inhaler 2 puff inhalation BID Qty: 8.8 0RF cholecalciferol (vitamin D3) 25 mcg (1,000 unit) Tablet 1,000 units PO DAILY Qty: 0 0RF prednisone 20 mg Tablet 40 mg PO DAILY Qty: 4 0RF Rx Instructions: Next the morning of 10/14/22. amlodipine [Norvasc] 5 mg tablet 5 mg PO DAILY Qty: 30 0RF Medical Decision Making This is a 46-year-old female reactive airway disease, bipolar, hypertension, diabetes mellitus, and a [id number] smoker, who presents today for cough and shortness of breath. Patient was initially admitted on October 11, echo showed an ejection fraction of 53% at that time, she had pneumonitis versus pneumonia. She was eventually discharged on steroids and azithromycin. Unfortunately symptoms continued and she was readmitted on 10/30 with symptoms concerning for COPD exacerbation. At that time she was given steroids and a prescription for doxycycline outpatient. She has been taking that as directed and is still on the doxycycline. She states that she has not gotten any better during her 5 days at home, and has actually been worsening feeling more short of breath, with increasing worsening cough. She continues to admit to chest tightness, states that it hurts whenever she tries to breathe. She states that she has been taking the antibiotics steroids and inhalers as directed. She denies having symptoms like this before. She feels short of breath with all activities and just sitting. She presents with EMS, and EMS did note that she was hypoxic on their arrival in the high 80s. No other complaints at this time. No other modifying factors. Physical exam demonstrates diffuse crackles and wheezes throughout. Oxygenation around 89 to 90%. She is working to breathe mildly, but is otherwise stable. Differential is high for continued and worsening pulmonary COPD, as well as potential infectious etiology. PE is also of concern with her continued progression of symptoms. We will evaluate for these etiologies, monitor close reassess. 10:49 PM EKG stable, troponin normal, proBNP improving. White count is increasing with mild left shift however the patient has been taking her steroids. After 2 breathing treatments and steroids the patient feels slightly better however she is still oxygen dependent, O2 is in the 90-91 range on room air, she is still needing 2 L of supplemental oxygen. Electrolytes stable, CTA demonstrates diffuse bilateral groundglass opacities, COVID, flu, RSV test is negative. Still uncertain as to what is causing her continued and worsening symptoms. She states that she has been taking her inhalers and antibiotic and steroid as directed. Concern for worsening infectious etiology. To start therapy now we will add vancomycin, based treating him, and azithromycin. Secondary to her penicillin allergy. Discussed the case with hospitalist Dr. Parth Salas, he agrees with the assessment and plan. I have extensively reviewed the treatment plan with the patient. I have addressed all patient concerns at this time. I have also discussed the plan with the admitting physician and they agree with the current assessment and plan and have agreed to assume responsibility for the patient. All parties demonstrate verbal understanding and agreement with our assessment and plan at this time. The documentation in this chart was dictated using [employer] dictation software. Please excuse any dictation errors. FINDINGS: Pulmonary arteries: No main, lobar or segmental pulmonary arterial embolism. Aorta: No aortic aneurysm. Lungs: There are diffuse bilateral ground-glass opacities. No mass or consolidation. Pleural spaces: Unremarkable. No pneumothorax. No pleural effusion. Heart: The heart is enlarged. No pericardial effusion. Lymph nodes: Unremarkable. No enlarged lymph nodes. Bones/joints: Unremarkable. No acute fracture. Soft tissues: Unremarkable. IMPRESSION: 1. No pulmonary arterial embolism. 2. Diffuse bilateral ground-glass opacities, infectious or inflammatory in etiology. 3. Cardiomegaly. Thank you for allowing us to participate in the care of your patient. Dictated and Authenticated by: Maureen Joel MD 11/05/2022 9:40 PM Eastern Time ([place] & [place]) Sign Out No HPI General Date/Time Provider Initiated Documentation: 11/05/22 20:08. HPI Narrative: This is a 46-year-old female reactive airway disease, bipolar, hypertension, diabetes mellitus, and a [id number] smoker, who presents today for cough and shortness of breath. Patient was initially admitted on October 11, echo showed an ejection fraction of 53% at that time, she had pneumonitis versus pneumonia. She was eventually discharged on steroids and azithromycin. Unfortunately symptoms continued and she was readmitted on 10/30 with symptoms concerning for COPD exacerbation. At that time she was given steroids and a prescription for doxycycline outpatient. She has been taking that as directed and is still on the doxycycline. She states that she has not gotten any better during her 5 days at home, and has actually been worsening feeling more short of breath, with increasing worsening cough. She continues to admit to chest tightness, states that it hurts whenever she tries to breathe. She states that she has been taking the antibiotics steroids and inhalers as directed. She denies having symptoms like this before. She feels short of breath with all activities and just sitting. She presents with EMS, and EMS did note that she was hypoxic on their arrival in the high 80s. No other complaints at this time. No other modifying factors. Related Data Home Medications Medication Instructions Recorded Confirmed dextroamphetamine-amphetamine ER 20 mg PO DAILY 01/18/20 10/30/22 10 mg 24hr capsule,extend release (Adderall XR) divalproex 500 mg tablet,delayed 1,000 mg PO QHS 01/18/20 10/30/22 release (Depakote) lisinopril 20 mg tablet 20 mg DAILY 01/18/20 10/30/22 melatonin 10 mg tablet 10 mg PO QHS 01/18/20 10/30/22 prazosin 2 mg capsule 3 mg PO QHS 01/18/20 10/30/22 risperidone 2 mg tablet (Risperdal) 2 mg BID 01/18/20 10/30/22 sertraline 100 mg tablet (Zoloft) 200 mg PO QAM 01/18/20 10/30/22 dulaglutide 3 mg/0.5 mL 1 device subcut QWEEK 10/10/22 10/30/22 subcutaneous pen injector (Trulicity) lorazepam 0.5 mg tablet 1 tab PO BID PRN PRN Anxiety 10/10/22 10/30/22 cholecalciferol (vitamin D3) 25 1,000 units PO DAILY #0 tabs 10/13/22 10/30/22 mcg (1,000 unit) tablet mometasone-formoterol HFA 100 2 puff inhalation BID #8.8 grams 10/13/22 10/30/22 mcg-5 mcg/actuation aerosol inhaler (Dulera) prednisone 20 mg tablet 40 mg PO DAILY #4 tabs 10/13/22 10/30/22 amlodipine 5 mg tablet (Norvasc) 5 mg PO DAILY #30 tabs 10/31/22 Previous Rx's Medication Instructions Recorded cholecalciferol (vitamin D3) 25 1,000 units PO DAILY #0 tabs 10/13/22 mcg (1,000 unit) tablet mometasone-formoterol HFA 100 2 puff inhalation BID #8.8 grams 10/13/22 mcg-5 mcg/actuation aerosol inhaler (Dulera) prednisone 20 mg tablet 40 mg PO DAILY #4 tabs 10/13/22 amlodipine 5 mg tablet (Norvasc) 5 mg PO DAILY #30 tabs 10/31/22 Allergies Allergy/AdvReac Type Severity Reaction Status Date / Time amoxicillin Allergy Nausea Unverified 10/30/22 20:49 bee pollen Allergy Hives Unverified 10/30/22 20:49 fluoxetine [From Prozac] Allergy Nausea Unverified 10/30/22 20:49 hazelnut Allergy Hives Unverified 10/30/22 20:49 abelox Allergy Hives Uncoded 10/30/22 20:49 General Stated Complaint: Chest Pain ZACK: 3 Review of Systems All systems reviewed & are unremarkable except as noted in HPI and below PFSH All Active Problems (Updated 11/05/22 @ 22:52 by Matty Palacio DO) COPD exacerbation (Acute) Pneumonia (Acute) Acute bronchitis (Acute) Acute asthma exacerbation (Acute) Tobacco abuse (Chronic) Encounter for medication refill (Acute) Medical History Acute asthma exacerbation Acute exacerbation of COPD with asthma Acute pneumonia ADHD Anxiety Bipolar disorder H/O suicide attempt Hypertension Hypoxia Non-insulin dependent diabetes mellitus Obesity (BMI 30.0-34.9) Surgical History S/P cholecystectomy Status post bilateral salpingectomy Family History Other Adopted Social History Smoking/Tobacco Use Status: Current every day Tobacco Type: cigarettes Smoking risk assessment performed?: Yes Alcohol Intake: never Substance use type: does not use Do you feel safe at home: Yes Do you feel safe in your relationship?: Yes Exam Narrative Exam Narrative: 1.Const: Well-nourished, Well-developed, appearing stated age 2.Eyes: PERRL, no conjunctival injection, and symmetrical lids. 3.ENT: Atraumatic external nose and ears. Dry MM. Neck: Symmetric, trachea midline, No thyromegaly. 4.CVS: +S1/S2, No murmurs or gallops. Peripheral pulses 2+ and equal in all extremities. Brisk capillary refill in all extremities. 5.RESP: Increased respiratory effort, diffuse wheezes and rhonchi throughout. 6.GI: Soft, Nontender/Nondistended, No hepatosplenomegaly. No guarding or rebound. 7.MSK: Normocephalic/Atraumatic, Extremities w/o deformity or ttp No cyanosis or clubbing, Normal movement of all extremities 8.Skin: Warm, Dry. No rashes or lesions. 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 Sensation grossly intact, no focal neurologic deficits. 10.Psych: (AAO) x3. Appropriate mood and affect Course Vital Signs Vital signs: Vital Signs Temperature 37.0 C 11/05/22 20:04 Pulse 94 H 11/05/22 20:04 Respiratory Rate 16 11/05/22 20:04 Blood Pressure 127/72 11/05/22 20:04 Pulse Oximetry 91 L 11/05/22 20:04 Temperature 37.0 C 11/05/22 20:04 Pulse 94 H 11/05/22 20:04 Respiratory Rate 18 11/05/22 20:10 Respiratory Effort Labored 11/05/22 20:10 Respiratory Depth Normal 11/05/22 20:10 Respiratory Pattern Normal 11/05/22 20:10 Blood Pressure 127/72 11/05/22 20:04 Pulse Oximetry 91 L 11/05/22 20:04 Oxygen Delivery Method Room Air 11/05/22 20:04 Oxygen Flow Rate 0 11/05/22 20:04 Pain Level 8 11/05/22 20:10 Lab/Test Results Lab/Test Results: Laboratory Tests Range/Units 11/05/22 11/05/22 11/05/22 20:20 20:20 20:20 WBC (4.4-10.8) 10^3/uL 14.08 H RBC (3.93-5.22) 10^6/uL 4.66 Hgb (11.2-15.7) g/dL 12.8 Hct (36.0-46.0) % 40.8 MCV (80-95) fL 88 MCH (27.0-33.0) pg 27.5 MCHC (32.0-36.0) % 31.4 L RDW (11.7-14.6) % 17.0 H Plt Count (130-400) 10^3/uL 269 MPV (8.0-11.0) fL 9.0 Immature Gran % 1.6 Neutrophils % 70.6 Lymphocytes % 22.7 Monocytes % 4.9 Eosinophils % 0.0 Basophils % 0.2 Nucleated RBC % (0.0-0.3) % 0.0 Absolute Neutrophils (1.2-6.7) 10^3/uL 9.94 H Absolute Lymphocytes (1.2-3.4) 10^3/uL 3.20 Absolute Monocytes (0.1-0.8) 10^3/uL 0.69 Absolute Eosinophils (0.0-0.7) 10^3/uL 0.00 Absolute Basophils (0.0-0.2) 10^3/uL 0.03 VBG pH (7.31-7.41) VBG pCO2 (41-51) mmHg VBG pO2 mmHg VBG HCO3 (23-28) mmol/L VBG Total CO2 (24-29) mmol/l VBG O2 Saturation % VBG Base Excess (-2-3) mmol/L Sodium (136-145) mmol/L 132 L Potassium (3.5-5.1) mmol/L 4.6 Chloride (98-107) mmol/L 93 L Carbon Dioxide (21.0-32.0) mmol/L 34.2 H Anion Gap (3-11) mmol/L 4.8 BUN (7-18) mg/dL 13 Creatinine (0.55-1.02) mg/dL 0.8 Est GFR (CKD-EPI 2020) (mL/min/1.73m2) 91.40 Glucose (74-106) mg/dL 222 H Calcium (8.5-10.1) mg/dL 9.2 Total Bilirubin (0.2-1.0) mg/dL 0.3 AST (15-37) U/L 9 L ALT (14-59) U/L 14 Alkaline Phosphatase (46-116) U/L 101 Troponin I (<or=60) ng/L < 50 NT-Pro-B Natriuret Pep (<300) pg/mL 725 H Total Protein (6.4-8.2) g/dL 7.9 Albumin (3.4-5.0) g/dL 3.3 L COVID-19 Source Nasopharynx SARS-CoV-2 (PCR) (Negative) Negative Influenza Type A (PCR) (Negative) Negative Influenza Type B (PCR) (Negative) Negative RSV (PCR) (Negative) Negative Range/Units 11/05/22 20:20 WBC (4.4-10.8) 10^3/uL RBC (3.93-5.22) 10^6/uL Hgb (11.2-15.7) g/dL Hct (36.0-46.0) % MCV (80-95) fL MCH (27.0-33.0) pg MCHC (32.0-36.0) % RDW (11.7-14.6) % Plt Count (130-400) 10^3/uL MPV (8.0-11.0) fL Immature Gran % Neutrophils % Lymphocytes % Monocytes % Eosinophils % Basophils % Nucleated RBC % (0.0-0.3) % Absolute Neutrophils (1.2-6.7) 10^3/uL Absolute Lymphocytes (1.2-3.4) 10^3/uL Absolute Monocytes (0.1-0.8) 10^3/uL Absolute Eosinophils (0.0-0.7) 10^3/uL Absolute Basophils (0.0-0.2) 10^3/uL VBG pH (7.31-7.41) 7.43 H VBG pCO2 (41-51) mmHg 54 H VBG pO2 mmHg 44 VBG HCO3 (23-28) mmol/L 36 H VBG Total CO2 (24-29) mmol/l 37 H VBG O2 Saturation % 79 VBG Base Excess (-2-3) mmol/L 11 H Sodium (136-145) mmol/L Potassium (3.5-5.1) mmol/L Chloride (98-107) mmol/L Carbon Dioxide (21.0-32.0) mmol/L Anion Gap (3-11) mmol/L BUN (7-18) mg/dL Creatinine (0.55-1.02) mg/dL Est GFR (CKD-EPI 2020) (mL/min/1.73m2) Glucose (74-106) mg/dL Calcium (8.5-10.1) mg/dL Total Bilirubin (0.2-1.0) mg/dL AST (15-37) U/L ALT (14-59) U/L Alkaline Phosphatase (46-116) U/L Troponin I (<or=60) ng/L NT-Pro-B Natriuret Pep (<300) pg/mL Total Protein (6.4-8.2) g/dL Albumin (3.4-5.0) g/dL COVID-19 Source SARS-CoV-2 (PCR) (Negative) Influenza Type A (PCR) (Negative) Influenza Type B (PCR) (Negative) RSV (PCR) (Negative)
[2022-11-05 22:01] VITALS: BP 136/68; PULSE 94; RESP 18; O2SAT 92
[2022-11-05] MEDS: AZITHROMYCIN 500 MG in Normal Saline 250 ML 250 MG IVPB (22:38)
[2022-11-05] MEDS: AZTREONAM 2,000 MG in Normal Saline 100 ML 200 MG IVPB (22:39)
[2022-11-05] MEDS: methylPREDNISolone SUCC 125 MG VIAL IVP (22:39)
--- NOTE | 2022-11-05 23:32 | HPE_ITS ---
Date of service: 11/05/22 Time of Service: 23:32 Assessment and Plan Assessment and plan (1) Multifocal pneumonia: Start date: 11/05/22 Status: Acute Assessment and plan: Patient has recurrent hypoxemia and respiratory symptoms now with multifocal pneumonia on CT scan appeared to have a viral appearance but negative COVID and flu screening. With her elevated WBC and symptoms she will be expanded to hospital-acquired pneumonia treatment with vancomycin, Azactam and Zithromax. This can be adjusted as reevaluated. Pulmonology may want to see the patient while hospitalized. Continue oxygen support. She is a full code. (2) COPD exacerbation: Start date: 11/05/22 Status: Acute Assessment and plan: IV Solu-Medrol and frequent nebulizer treatments. Pulmonary consultation if appropriate. Smoking cessation long-term is recommended. (3) Type 2 diabetes mellitus: Status: Chronic Assessment and plan: Glucometer measurements with short acting insulin coverage while hospitalized holding usual outpatient medical therapy. (4) Tobacco abuse: Status: Chronic Assessment and plan: Nicotine supplement only if patient wishes. Long-term patient should stop smoking altogether. (5) Thrush: Start date: 11/05/22 Status: Acute Assessment and plan: Nystatin swish and swallow avoid Diflucan because of patient's multiple meds and possible interaction. This can be used long-term with patient being on antibiotics and steroids chronically at this point. History of Present Illness History of Present Illness Chief Complaint: Shortness of breath Narrative: This is a 46-year-old [place] female patient who presented to the ED 1 month ago with hypoxemia and was treated for pneumonitis versus pneumonia. Her echocardiogram at that time did show adequate left ventricular ejection fraction 53%. Patient was eventually discharged from that hospitalization with Zithromax completion of antibiotics and steroids. She was COVID and flu negative. She had continued symptoms with recurring hypoxemia with readmission earlier this month for possible COPD exacerbation. She was continued on oral steroids and wa s on doxycycline when presenting to this ED visit. She was having continued or worsening hypoxemia and respiratory symptoms with good response to nebulizer treatments and IV Solu-Medrol in the ED. She was expanded to hospital-acquired pneumonia with CT scan showing multifocal pneumonia and infiltrates reminiscent of COVID-19 infections during the pandemic though she can remain negative for screening flu and COVID. She will be admitted with IV vancomycin, Azactam and erythromycin to be administered along with IV steroids. She will continue to be on oxygen supplement with the patient's pulse oximeter in the high 80% range when not on oxygen. She is requiring 2 to 3 L. CTA was negative for PE. Patient has seen pulmonology during her last hospital stays and this may be followed up during this hospital stay. She is a full code. Review of Systems Narrative: Patient does have a sore throat and some white patches with concerns for thrush, 13 point review of systems otherwise unrevealing or stable. PFSH All Active Problems (Updated 11/06/22 @ 00:04 by Adrián Redding) Thrush (Acute) Type 2 diabetes mellitus (Chronic) Multifocal pneumonia (Acute) COPD exacerbation (Acute) Pneumonia (Acute) Acute bronchitis (Acute) Acute asthma exacerbation (Acute) Tobacco abuse (Chronic) Encounter for medication refill (Acute) Medical History Acute asthma exacerbation Acute exacerbation of COPD with asthma Acute pneumonia ADHD Anxiety Bipolar disorder H/O suicide attempt Hypertension Hypoxia Non-insulin dependent diabetes mellitus Obesity (BMI 30.0-34.9) Surgical History S/P cholecystectomy Status post bilateral salpingectomy Family History Other Adopted Social History Smoking/Tobacco Use Status: Current every day Tobacco Type: cigarettes Smoking risk assessment performed?: Yes Alcohol Intake: never Substance use type: does not use Do you feel safe at home: Yes Do you feel safe in your relationship?: Yes Meds Allergies and Home Medications Allergies Allergy/AdvReac Type Severity Reaction Status Date / Time amoxicillin Allergy Nausea Unverified 10/30/22 20:49 bee pollen Allergy Hives Unverified 10/30/22 20:49 fluoxetine [From Prozac] Allergy Nausea Unverified 10/30/22 20:49 hazelnut Allergy Hives Unverified 10/30/22 20:49 abelox Allergy Hives Uncoded 10/30/22 20:49 Home Medications Medication Instructions Recorded Confirmed Type dextroamphetamine-amphetamine ER 20 mg PO DAILY 01/18/20 11/06/22 History 10 mg 24hr capsule,extend release (Adderall XR) divalproex 500 mg tablet,delayed 1,000 mg PO QHS 01/18/20 11/06/22 History release (Depakote) lisinopril 20 mg tablet 20 mg DAILY 01/18/20 11/06/22 History melatonin 10 mg tablet 10 mg PO QHS 01/18/20 11/06/22 History prazosin 2 mg capsule 6 mg PO QHS 01/18/20 11/06/22 History risperidone 2 mg tablet (Risperdal) 2 mg PO .QHS 01/18/20 11/06/22 History sertraline 100 mg tablet (Zoloft) 200 mg PO QAM 01/18/20 11/06/22 History dulaglutide 3 mg/0.5 mL 1 device subcut QWEEK 10/10/22 11/06/22 History subcutaneous pen injector (Trulicity) lorazepam 0.5 mg tablet 1 tab PO BID PRN PRN Anxiety 10/10/22 11/06/22 History cholecalciferol (vitamin D3) 25 1,000 units PO DAILY #0 tabs 10/13/22 11/06/22 Rx mcg (1,000 unit) tablet mometasone-formoterol HFA 100 2 puff inhalation BID #8.8 grams 10/13/22 10/30/22 Rx mcg-5 mcg/actuation aerosol inhaler (Dulera) prednisone 20 mg tablet 40 mg PO DAILY #4 tabs 10/13/22 11/06/22 Rx amlodipine 5 mg tablet (Norvasc) 5 mg PO DAILY #30 tabs 10/31/22 11/06/22 Rx Exam Narrative Exam Narrative: General: Patient appears older than stated age, in moderate distress from her respiratory symptoms and sore throat, alert and oriented to person, place and time. She has a flattened affect but good eye contact. HEENT: Normocephalic, coarsened facial features, eyes with pupils equal and react light symmetrically, extraocular movement intact and sclera anicteric. Oropharynx with slightly erythematous buccal and pharynx mucosa with scant white patches but no severe exudate and dry slightly white tongue with patient being edentulous. Neck: Supple without JVD. Back: Stooped posture without CVA tenderness. Lungs: Fair but decreased aeration with no inspiratory focalizing rales or rhonchi during my exam though these were noted during the initial exam by the ED provider with expiratory wheeze which presently is not auscultated. Expiratory phase is only slightly increased. Breast: Exam deferred. Heart: Regular rate and rhythm with no appreciable murmur or gallop. Abdomen: Obese contour, soft and nontender to palpation with no palpable hepatosplenomegaly. Extremities: Without clubbing, cyanosis or grossly pitting edema. Joints have fair range of motion. Neuro: Cranial nerves II through XII gross intact, no focal motor deficits. No tremor. Psych: Anxious with flattened affect and depressed mood. Patient has pressured speech and talks very fast. No abnormal thought processes. Remote and recent memory intact. Results Imaging Imaging Studies: Exam: CTA Chest With Contrast Exam date and time: 11/05/2022 9:05 PM Age: 46 years old Clinical indication: Other: Worsening cough, R/O pe TECHNIQUE: Imaging protocol: Computed tomographic angiography of the chest with contrast. 3D rendering (Not supervised by radiologist): MIP and/or 3D reconstructed images were created by the technologist. Radiation optimization: All CT scans at this facility use at least one of these dose optimization techniques: automated exposure control; mA and/or kV adjustment per patient size (includes targeted exams where dose is matched to clinical indication); or iterative reconstruction. Contrast material: OMNIPAQUE 350; Contrast volume: 85 ml; Contrast route: INTRAVENOUS (IV);? COMPARISON: CR XR CHEST 2V PA LATERAL 10/30/2022 9:35 PM FINDINGS: Pulmonary arteries: No main, lobar or segmental pulmonary arterial embolism. Aorta: No aortic aneurysm. Lungs: There are diffuse bilateral ground-glass opacities. No mass or consolidation. Pleural spaces: Unremarkable. No pneumothorax. No pleural effusion. Heart: The heart is enlarged. No pericardial effusion. Lymph nodes: Unremarkable. No enlarged lymph nodes. Bones/joints: Unremarkable. No acute fracture. Soft tissues: Unremarkable. IMPRESSION: 1. No pulmonary arterial embolism. 2. Diffuse bilateral ground-glass opacities, infectious or inflammatory in etiology. 3. Cardiomegaly. Labs Result diagrams: 11/06/22 06:15 11/06/22 06:15 Labs: Laboratory Results - last 24 hr 11/05/22 11/05/22 11/05/22 20:20 20:20 20:20 WBC 14.08 H RBC 4.66 Hgb 12.8 Hct 40.8 MCV 88 MCH 27.5 MCHC 31.4 L RDW 17.0 H Plt Count 269 MPV 9.0 Immature Gran % 1.6 Neutrophils % 70.6 Lymphocytes % 22.7 Monocytes % 4.9 Eosinophils % 0.0 Basophils % 0.2 Nucleated RBC % 0.0 Absolute Neutrophils 9.94 H Absolute Lymphocytes 3.20 Absolute Monocytes 0.69 Absolute Eosinophils 0.00 Absolute Basophils 0.03 VBG pH VBG pCO2 VBG pO2 VBG HCO3 VBG Total CO2 VBG O2 Saturation VBG Base Excess Sodium 132 L Potassium 4.6 Chloride 93 L Carbon Dioxide 34.2 H Anion Gap 4.8 BUN 13 Creatinine 0.8 Est GFR (CKD-EPI 2020) 91.40 Glucose 222 H Calcium 9.2 Total Bilirubin 0.3 AST 9 L ALT 14 Alkaline Phosphatase 101 Troponin I < 50 NT-Pro-B Natriuret Pep 725 H Total Protein 7.9 Albumin 3.3 L COVID-19 Source Nasopharynx SARS-CoV-2 (PCR) Negative Influenza Type A (PCR) Negative Influenza Type B (PCR) Negative RSV (PCR) Negative 11/05/22 20:20 WBC RBC Hgb Hct MCV MCH MCHC RDW Plt Count MPV Immature Gran % Neutrophils % Lymphocytes % Monocytes % Eosinophils % Basophils % Nucleated RBC % Absolute Neutrophils Absolute Lymphocytes Absolute Monocytes Absolute Eosinophils Absolute Basophils VBG pH 7.43 H VBG pCO2 54 H VBG pO2 44 VBG HCO3 36 H VBG Total CO2 37 H VBG O2 Saturation 79 VBG Base Excess 11 H Sodium Potassium Chloride Carbon Dioxide Anion Gap BUN Creatinine Est GFR (CKD-EPI 2020) Glucose Calcium Total Bilirubin AST ALT Alkaline Phosphatase Troponin I NT-Pro-B Natriuret Pep Total Protein Albumin COVID-19 Source SARS-CoV-2 (PCR) Influenza Type A (PCR) Influenza Type B (PCR) RSV (PCR) Last Vital Signs Temp 37.0 C 11/05/22 20:04 Pulse 94 H 11/05/22 22:01 Resp 18 11/05/22 22:01 BP 136/68 11/05/22 22:01 Pulse Ox 92 11/05/22 22:01
[2022-11-05 23:35] LABS: Procalcitonin < 0.1 ng/mL
[2022-11-06] VITALS (20 sets, daily range): BP systolic 150–181; BP diastolic 76–96; PULSE 65–97; RESP 2–22; TEMP 36.3–36.8; O2SAT 92–97
[2022-11-06 00:16] LABS: TSH (W/Ref FT4) 1.29 uIU/mL (0.36-3.74)
[2022-11-06] MEDS: Prazosin 1 MG CAP 3 MG PO ×2 (01:29→22:27)
[2022-11-06] MEDS: Melatonin 3 MG TAB 9 MG PO ×2 (01:30→22:27)
[2022-11-06] MEDS: Divalproex 500 MG TABEC 1000 MG PO ×2 (01:30→22:28)
[2022-11-06] MEDS: Enoxaparin 40 MG/0.4 ML SYR SC (01:53)
[2022-11-06] MEDS: risperiDONE 1 MG TAB 2 MG PO ×2 (01:53→22:27)
[2022-11-06] MEDS: Albuterol/Ipratropium 3 ML UPD VIAL UPD ×5 (02:03→23:28)
[2022-11-06] MEDS: LORazepam 0.5 MG TAB PO ×2 (02:44→13:39)
[2022-11-06 07:03] LABS: HCT 39.6 % (36.0-46.0); HGB 12.5 g/dL (11.2-15.7); MCH 27.2 pg (27.0-33.0); MCHC 31.6 % (32.0-36.0); MCV 86 fL (80-95); MPV 9.3 fL (8.0-11.0); Platelet Count 263 10^3/uL (130-400); RBC 4.59 10^6/uL (3.93-5.22); RDW 17.2 % (11.7-14.6); RDW-SD 54.6 fL
[2022-11-06 07:20] LABS: ALT 12 U/L (14-59); AST 10 U/L (15-37); Alkaline Phosphatase 90 U/L (46-116); Anion Gap 5.6 mmol/L (3-11); BUN 11 mg/dL (7-18); Bilirubin, Total 0.3 mg/dL (0.2-1.0); CO2 32.4 mmol/L (21.0-32.0); Calcium 9.2 mg/dL (8.5-10.1); Chloride 95 mmol/L (98-107); Estimated GFR 69.93 (mL/min/1.73m2); Glucose 288 mg/dL (74-106); Magnesium 1.9 mg/dL (1.8-2.4); Potassium 4.8 mmol/L (3.5-5.1); Sodium 133 mmol/L (136-145); Total Protein 7.5 g/dL (6.4-8.2)
[2022-11-06] MEDS: methylPREDNISolone SUCC 125 MG VIAL 80 MG IVP ×2 (07:30→13:59)
[2022-11-06] MEDS: Normal Saline Flush 10 ML SYR IVP (07:31)
[2022-11-06] MEDS: Insulin Aspart 300 UNITS/3 ML PEN SC ×4 (08:51→22:26)
[2022-11-06] MEDS: Sertraline 100 MG TAB 200 MG PO (08:54)
[2022-11-06] MEDS: amLODIPine 5 MG TAB PO (08:55)
[2022-11-06] MEDS: Lisinopril 20 MG TAB PO (09:19)
--- NOTE | 2022-11-06 10:31 | INITIAL_ITS ---
- If Service Date Differs Date of service: 11/06/22 Time of Service: 10:31 Care Management Initial Assess REASON FOR HOSPITALIZATION:: Multifocal pneumonia, COPD exacerbation PAST MEDICAL HISTORY/PAST SURGICAL HISTORY:: All Active Problems (Updated 11/06/22 @ 00:04 by Adrián Redding). Thrush (Acute). Type 2 diabetes mellitus (Chronic). Multifocal pneumonia (Acute). COPD exacerbation (Acute). Pneumonia (Acute). Acute bronchitis (Acute). Acute asthma exacerbation (Acute). Tobacco abuse (Chronic). Encounter for medication refill (Acute). Medical History . Acute asthma exacerbation. Acute exacerbation of COPD with asthma. Acute pneumonia. ADHD. Anxiety. Bipolar disorder. H/O suicide attempt. Hypertension. Hypoxia. Non-insulin dependent diabetes mellitus. Obesity (BMI 30.0-34.9). Surgical History . S/P cholecystectomy. Status post bilateral salpingectomy PREVIOUS FUNCTIONAL STATUS/SOCIAL/FAMILY SUPPORTS:: Cecilia lives in [facility] with her Dheeraj. Cecilia does not drive and uses [facility] for transportation. Cecilia shares that she is disabled due to her anxiety and depression. She has therapy through [facility] at [facility] and feels that her symptoms have been stable for quite some time. She is independent at baseline. CURRENT FUNCTIONAL STATUS:: Cecilia is lying in bed when CM met with her. She appears anxious and speaks very fast. Her HOB is elevated and she is currently 96% on 3L NC, is afebrile and on telemetry. ADVANCE DIRECTIVES:: none on file Has patient been provided with info about the portal/API?: Yes Did the patient sign up for the portal?: No CODE STATUS:: Full Code INSURANCE COVERAGE / FINANCIAL ISSUES:: Parrish Scandid. Medicare Replacement plan. Medicaid CURRENT HOME/COMMUNITY SERVICES/EQUIPMENT:: Services through [facility]. SSDI. [facility] for transportation PRIMARY CARE PHYSICIAN:: Julianna Singh POTENTIAL DISCHARGE NEEDS:: follow up with PCP and plan of care PATIENT/FAMILY EDUCATION NEEDS:: review of dicharge instructions, limitations, follow up plan, Ask Me Three TRANSPORTATION:: via private vehicle with [facility] PLAN:: Anticipate, Cecilia will discharge home with no new services when medically ready. She will follow up with her community providers and discharge plan of care as prescribed.Cecilia will transport via [facility] private vehicle. Readmission - Within the Past 30 Days Yes or No: Y - Date of First Admission Date of 1st Admission: 10/30/22 - Date of this Admission This admission was: Through ED
[2022-11-06] MEDS: AZTREONAM 2,000 MG in Normal Saline 100 ML 200 MG IVPB ×2 (10:46→22:29)
--- NOTE | 2022-11-06 11:15 | RT.EKG_ITS ---
APPROVED REPORT Exam: Resting ECG Reason for Exam: chest pain Patient Location: I HR:85 bpm ECG Measurements Heart Rate 85 AXIS LA 124 P 55 QRSd 81 QRS 64 QT 365 T 51 QTc 434 Conclusion Sinus rhythm...normal P axis, V-rate 50- 99 Poor R wave progression Artifact
[2022-11-06] MEDS: VANCOMYCIN/WATER (PEG) 1 GM/200 ML BAG IVPB ×2 (12:29→23:27)
[2022-11-06] MEDS: Albuterol 2.5 MG/3 ML INH SOLN VIAL UPD (15:42)
--- NOTE | 2022-11-06 16:49 | W.PM.PROGNOT ---
Date of Service Date of service: 11/06/22 Time of Service: 16:49 Assessment and Plan Assessment and plan (1) Multifocal pneumonia: Start date: 11/05/22 Status: Acute Assessment and plan: Continue empiric abx. Obtain sputum culture, urine legionella and strep antigens, mycoplasma sputum. Obtain MRSA nares. Await blood cultures. Procalcitonin is negative, but sputum description and purulent, so I do think there is a role for antibiotics. (2) Acute asthma exacerbation: Status: Acute Assessment and plan: OK to decrease steroid dose to 60 mg of prednisone daily. Will give a dose of magnesium sulfate. (3) Hypoxia: Assessment and plan: Due to above. Wean as tolerated. (4) Type 2 diabetes mellitus: Status: Chronic Assessment and plan: With steroid induced hyperglycemia. Continue SSI and add long acting insulin. (5) Tobacco abuse: Status: Chronic Assessment and plan: provide prn nicotine replacement. (6) Thrush: Start date: 11/05/22 Status: Acute Assessment and plan: continue nystatin PO (7) DVT prophylaxis: Status: Acute Assessment and plan: Sc enoxaparin (8) Discharge planning issues: Status: Acute Assessment and plan: Full code Continues to require hospitalization Subjective Subjective Interval history since last seen: Ms Boudreaux reports chest tightness and cough productive of yellow brown sputum. She continues to report shortness of breath. She has a headache. Denies dizziness, chest pain, pain of any kind, nausea. GLYNNS recommended not resuming her adderall and obtaining labs (valproic acid, UDS, TSH, lipid panel, B12, Vitamin D levels). Exam Narrative Exam Narrative: General: Pleasant obese female, mildly anxious, A&ox3, able to speak in 4-5 word phrases prior to needed to take a deep breath HEENT: EOMI, MMM Heart: RRR, mildly tachycardic Lungs: expiratory wheezing B Abdomen: soft, nontender, nondistended Extremities: no edema BLEs Objective Last Vital Signs Temp 36.8 C 11/06/22 15:27 Pulse 97 H 11/06/22 15:27 Resp 20 11/06/22 15:27 BP 181/84 H 11/06/22 15:27 Pulse Ox 96 11/06/22 16:00 Laboratory Results - last 24 hr 11/05/22 11/05/22 11/05/22 20:20 20:20 20:20 WBC 14.08 H RBC 4.66 Hgb 12.8 Hct 40.8 MCV 88 MCH 27.5 MCHC 31.4 L RDW 17.0 H Plt Count 269 MPV 9.0 Immature Gran % 1.6 Neutrophils % 70.6 Lymphocytes % 22.7 Monocytes % 4.9 Eosinophils % 0.0 Basophils % 0.2 Nucleated RBC % 0.0 Absolute Neutrophils 9.94 H Absolute Lymphocytes 3.20 Absolute Monocytes 0.69 Absolute Eosinophils 0.00 Absolute Basophils 0.03 VBG pH VBG pCO2 VBG pO2 VBG HCO3 VBG Total CO2 VBG O2 Saturation VBG Base Excess Sodium 132 L Potassium 4.6 Chloride 93 L Carbon Dioxide 34.2 H Anion Gap 4.8 BUN 13 Creatinine 0.8 Est GFR (CKD-EPI 2020) 91.40 Glucose 222 H Calcium 9.2 Magnesium Total Bilirubin 0.3 AST 9 L ALT 14 Alkaline Phosphatase 101 Troponin I < 50 NT-Pro-B Natriuret Pep 725 H Total Protein 7.9 Albumin 3.3 L Procalcitonin TSH COVID-19 Source Nasopharynx SARS-CoV-2 (PCR) Negative Influenza Type A (PCR) Negative Influenza Type B (PCR) Negative RSV (PCR) Negative 11/05/22 11/05/22 11/05/22 20:20 20:20 20:20 WBC RBC Hgb Hct MCV MCH MCHC RDW Plt Count MPV Immature Gran % Neutrophils % Lymphocytes % Monocytes % Eosinophils % Basophils % Nucleated RBC % Absolute Neutrophils Absolute Lymphocytes Absolute Monocytes Absolute Eosinophils Absolute Basophils VBG pH 7.43 H VBG pCO2 54 H VBG pO2 44 VBG HCO3 36 H VBG Total CO2 37 H VBG O2 Saturation 79 VBG Base Excess 11 H Sodium Potassium Chloride Carbon Dioxide Anion Gap BUN Creatinine Est GFR (CKD-EPI 2020) Glucose Calcium Magnesium Total Bilirubin AST ALT Alkaline Phosphatase Troponin I NT-Pro-B Natriuret Pep Total Protein Albumin Procalcitonin < 0.1 TSH 1.29 COVID-19 Source SARS-CoV-2 (PCR) Influenza Type A (PCR) Influenza Type B (PCR) RSV (PCR) 11/06/22 11/06/22 06:15 06:15 WBC 12.40 H RBC 4.59 Hgb 12.5 Hct 39.6 MCV 86 MCH 27.2 MCHC 31.6 L RDW 17.2 H Plt Count 263 MPV 9.3 Immature Gran % Neutrophils % Lymphocytes % Monocytes % Eosinophils % Basophils % Nucleated RBC % Absolute Neutrophils Absolute Lymphocytes Absolute Monocytes Absolute Eosinophils Absolute Basophils VBG pH VBG pCO2 VBG pO2 VBG HCO3 VBG Total CO2 VBG O2 Saturation VBG Base Excess Sodium 133 L Potassium 4.8 Chloride 95 L Carbon Dioxide 32.4 H Anion Gap 5.6 BUN 11 Creatinine 1.0 Est GFR (CKD-EPI 2020) 69.93 Glucose 288 H Calcium 9.2 Magnesium 1.9 Total Bilirubin 0.3 AST 10 L ALT 12 L Alkaline Phosphatase 90 Troponin I NT-Pro-B Natriuret Pep Total Protein 7.5 Albumin 3.0 L Procalcitonin TSH COVID-19 Source SARS-CoV-2 (PCR) Influenza Type A (PCR) Influenza Type B (PCR) RSV (PCR)
[2022-11-06] MEDS: MAGNESIUM SULFATE 2 GM/50 ML BAG IVPB (17:00)
[2022-11-06 18:54] LABS: *AMPHETAMINES SCREEN URINE Negative (Negative); *BARBITURATES SCREEN URINE Negative (Negative); *BENZODIAZEPINES SCREEN URINE Negative (Negative); Cannabinoids THC Positive (Negative); Cocaine Screen,Urine Negative (Negative); METHADONE URINE SCREEN Negative (Negative); OPIATES URINE SCREEN Negative (Negative)
[2022-11-06 18:56] LABS: Tricyclic Antidepressants Negative (Negative)
--- NOTE | 2022-11-06 19:38 | NUR.NOTE ---
Nursing Note: Notified pt leads were off, went to check and tele was off. Asked her why it was off she stated it was bugging me and uncomfortable. Asked her if we could put it back on she said no thank you. Nurse notified.
[2022-11-06] MEDS: AZITHROMYCIN 500 MG in Normal Saline 250 ML 250 MG IVPB (19:56)
[2022-11-06] MEDS: guaiFENesin 600 MG TABCR PO (19:56)
[2022-11-06] MEDS: Insulin Glargine 300 UNITS/3 ML PEN 10 UNITS SC (22:25)
[2022-11-07] VITALS (7 sets, daily range): BP systolic 128–162; BP diastolic 72–91; PULSE 72–94; RESP 7–22; TEMP 36.6–36.9; O2SAT 90–96
[2022-11-07] MEDS: Albuterol/Ipratropium 3 ML UPD VIAL UPD ×3 (05:57→17:31)
[2022-11-07 07:01] LABS: Abs Immature Grans 0.12 10^3/uL (0.0-0.06); Absolute Basophil Count 0.03 10^3/uL (0.0-0.2); Absolute Lymphocyte Count 6.24 10^3/uL (1.2-3.4); Absolute Monocyte Count 1.12 10^3/uL (0.1-0.8); Basophils % 0.2; Eosinophils % 0.1; HCT 37.9 % (36.0-46.0); HGB 12.2 g/dL (11.2-15.7); Immature Grans % 0.8; MCH 27.6 pg (27.0-33.0); MCHC 32.2 % (32.0-36.0); MCV 86 fL (80-95); MPV 9.2 fL (8.0-11.0); Monocytes % 7.7; Neutrophils % 48.2; Platelet Count 275 10^3/uL (130-400); RBC 4.42 10^6/uL (3.93-5.22); RDW 17.2 % (11.7-14.6); RDW-SD 53.3 fL; WBC 14.52 10^3/uL (4.4-10.8)
[2022-11-07 07:02] LABS: Absolute Eosinophil Count 0.01 10^3/uL (0.0-0.7)
[2022-11-07 07:24] LABS: Anion Gap 4.2 mmol/L (3-11); BUN 13 mg/dL (7-18); CO2 34.8 mmol/L (21.0-32.0); CREATININE 0.7 mg/dL (0.55-1.02); Calcium 8.8 mg/dL (8.5-10.1); Calculated LDL 104 mg/dL (<100); Chloride 98 mmol/L (98-107); Cholesterol 218 mg/dL (<200); Estimated GFR 107.28 (mL/min/1.73m2); Glucose 97 mg/dL (74-106); HDL Cholesterol 100 mg/dL (40-60); Magnesium 1.9 mg/dL (1.8-2.4); Potassium 3.4 mmol/L (3.5-5.1); Sodium 137 mmol/L (136-145); Triglyceride 72 mg/dL (<150); VALPROIC ACID 34.5 ug/mL
[2022-11-07 07:51] LABS: Diff Comment Manual Differential; RBC Morphology Normal
[2022-11-07 08:00] LABS: TSH (W/Ref FT4) 6.19 uIU/mL (0.36-3.74); Vitamin B12 533 pg/mL (193-986)
[2022-11-07 08:21] LABS: FREE T4 0.69 ng/dL (0.76-1.46)
[2022-11-07] MEDS: VANCOMYCIN/WATER (PEG) 1 GM/200 ML BAG IVPB ×2 (08:36→17:49)
[2022-11-07] MEDS: Potassium Chloride 20 MEQ TABCR 40 MEQ PO (08:37)
[2022-11-07] MEDS: predniSONE 20 MG TAB 60 MG PO (08:37)
[2022-11-07] MEDS: Lisinopril 20 MG TAB PO (08:37)
[2022-11-07] MEDS: Cholecalciferol (Vitamin D3) 1,000 UNIT TAB 2000 UNITS PO (08:37)
[2022-11-07] MEDS: Sertraline 100 MG TAB 200 MG PO (08:38)
[2022-11-07] MEDS: guaiFENesin 600 MG TABCR PO ×2 (08:38→20:31)
[2022-11-07] MEDS: amLODIPine 5 MG TAB PO (08:38)
[2022-11-07] MEDS: Pantoprazole 40 MG TABCR PO (08:38)
[2022-11-07] MEDS: AZTREONAM 2,000 MG in Normal Saline 100 ML 200 MG IVPB ×2 (09:52→21:53)
--- NOTE | 2022-11-07 10:51 | W.INDIABCONS ---
Date of service: 11/07/22 Time of Service: 10:52 Diabetes Inpatient Consult Reason for Visit: DM DESCRIPTION/ASSESSMENT: Met with Cecilia today. Admitted with PNA, COPD with hx of diabetes and obesity. She declines diabetes education. Most recent A1C: 7.6%- slightly above target. Following diabetic diet with excellent intake. INTERVENTION: none at this time. Provided contact information if wants outpatient diabetes education PLAN: will be available prn. Time Spent in Nutritional Counseling and Treatment: 0
--- NOTE | 2022-11-07 11:14 | PDOC.CMPRO ---
- If Service Date Differs Date of service: 11/07/22 Time of Service: 11:14 Care Management Progress Note S/O: Cecilia is sitting up in bed and happily wearing her street clothes when CM met with her. She is awake, alert and easily engages in conversation. Cecilia's clothes were sent to laundry yesterday. Staff shared with AMOL that this afternoon she became very anxious because her clothes had not been delivered to her room yet. Cecilia shares with CM the reason why she became so upset is because she only owns the cloths she is wearing. She also shares that she lives in a 1 bedroom apartment and her lease will be running out soon. sent a referral to [facility] with her permission. A: 46 year old female admitted to [facility] on 11/05/22 for Multifocal pneumonia, COPD exacerbation P: Anticipate, Cecilia will discharge home with no new [facility] services when medically ready. She will follow up with her community providers and discharge plan of care as prescribed. Cecilia will transport via [facility] private vehicle. [facility] referral is placed.
[2022-11-07] MEDS: Insulin Aspart 300 UNITS/3 ML PEN SC ×3 (11:52→21:51)
[2022-11-07] MEDS: LORazepam 0.5 MG TAB PO ×2 (12:23→20:31)
--- NOTE | 2022-11-07 17:20 | W.PM.PROGNOT ---
Date of Service Date of service: 11/07/22 Time of Service: 17:20 Assessment and Plan Assessment and plan (1) Multifocal pneumonia: Status: Acute Assessment and plan: Continue empiric abx. Sputum C&S with normal danielle x 2. Urine legionella and strep antigens, mycoplasma sputum pending MRSA nares pending. Procalcitonin is negative, but sputum description and purulent, so I do think there is a role for antibiotics. (2) Acute asthma exacerbation: Status: Acute Assessment and plan: Continue prednisone 60 mg PO daily, scheduled + prn bronchodilators, abx. (3) Hypoxia: Assessment and plan: Resolved. Check exercise oximetry. (4) Type 2 diabetes mellitus: Status: Chronic Assessment and plan: With steroid induced hyperglycemia. Increase SSI and keep long acting insulin at current dose. (5) Tobacco abuse: Status: Chronic Assessment and plan: provide prn nicotine replacement. (6) Thrush: Status: Acute Assessment and plan: continue nystatin PO (7) DVT prophylaxis: Status: Acute Assessment and plan: Sc enoxaparin (8) Discharge planning issues: Status: Acute Assessment and plan: Full code Anticipate discharge home tomorrow. Check exercise oximetry prior. (9) Pharyngitis: Status: Acute Assessment and plan: check rapid strep Subjective Subjective Interval history since last seen: Ms Brooks states that she is feeling a little bit better. Her biggest complaints today are her sore throat (from coughing or thrush, she thinks) and some chest tightness, but it is getting better. Her hemoptysis has resolved. Denies dizziness, chest pain, nausea. On RA. Exam Narrative Exam Narrative: General: Pleasant obese female, mildly anxious, A&ox3, speaking in full sentences, looks better. HEENT: EOMI, MMM, pharyngeal erythema, no obvious thrush on my exam Heart: RRR, no m/r/g Lungs: Diminished breath sounds B - no wheezing Abdomen: soft, nontender, nondistended Extremities: no edema BLEs Objective Last Vital Signs Temp 36.8 C 11/07/22 15:35 Pulse 78 11/07/22 15:35 Resp 20 11/07/22 15:35 BP 157/83 H 11/07/22 15:35 Pulse Ox 94 11/07/22 15:35 Laboratory Results - last 24 hr 12/11/07/22 11/07/22 13:32 05:35 06:10 WBC RBC Hgb Hct MCV MCH MCHC RDW Plt Count MPV Immature Gran % Neutrophils % Lymphocytes % Monocytes % Eosinophils % Basophils % Nucleated RBC % Absolute Neutrophils Absolute Lymphocytes Absolute Monocytes Absolute Eosinophils Absolute Basophils RBC Morphology Sodium 137 Potassium 3.4 L D Chloride 98 Carbon Dioxide 34.8 H Anion Gap 4.2 BUN 13 Creatinine 0.7 Est GFR (CKD-EPI 2020) 107.28 Glucose 97 Calcium 8.8 Magnesium 1.9 Triglycerides 72 Total Cholesterol 218 H LDL Cholesterol, Calc 104 H HDL Cholesterol 100 Vitamin B12 25-OH Vitamin D Total 13.0 L TSH Free T4 Urine Opiates Screen Negative Urine Methadone Screen Negative Ur Barbiturates Screen Negative Valproic Acid Ur Tricyclics Screen Negative Ur Amphetamines Screen Negative U Benzodiazepines Scrn Negative Urine Cocaine Screen Negative Ur THC Screen Positive A 11/07/22 11/07/22 11/07/22 06:10 06:10 06:10 WBC 14.52 H RBC 4.42 Hgb 12.2 Hct 37.9 MCV 86 MCH 27.6 MCHC 32.2 RDW 17.2 H Plt Count 275 MPV 9.2 Immature Gran % 0.8 Neutrophils % 48.2 Lymphocytes % 43.0 Monocytes % 7.7 Eosinophils % 0.1 Basophils % 0.2 Nucleated RBC % 0.0 Absolute Neutrophils 7.00 H Absolute Lymphocytes 6.24 H Absolute Monocytes 1.12 H Absolute Eosinophils 0.01 Absolute Basophils 0.03 RBC Morphology Normal Sodium Potassium Chloride Carbon Dioxide Anion Gap BUN Creatinine Est GFR (CKD-EPI 2020) Glucose Calcium Magnesium Triglycerides Total Cholesterol LDL Cholesterol, Calc HDL Cholesterol Vitamin B12 533 25-OH Vitamin D Total TSH 6.19 H Free T4 0.69 L Urine Opiates Screen Urine Methadone Screen Ur Barbiturates Screen Valproic Acid 34.5 Ur Tricyclics Screen Ur Amphetamines Screen U Benzodiazepines Scrn Urine Cocaine Screen Ur THC Screen
[2022-11-07 17:25] LABS: Vancomycin, Trough 13.8 ug/mL (10.0-20.0)
[2022-11-07] MEDS: AZITHROMYCIN 500 MG in Normal Saline 250 ML 250 MG IVPB (20:31)
[2022-11-07] MEDS: Normal Saline 500 ML 30 ML IV (20:32)
[2022-11-07] MEDS: Insulin Glargine 300 UNITS/3 ML PEN 10 UNITS SC (21:53)
[2022-11-07] MEDS: Melatonin 3 MG TAB 9 MG PO (21:53)
[2022-11-07] MEDS: risperiDONE 1 MG TAB 2 MG PO (21:54)
[2022-11-07] MEDS: Prazosin 1 MG CAP 3 MG PO (21:54)
[2022-11-07] MEDS: Divalproex 500 MG TABEC 1000 MG PO (21:54)
[2022-11-08] VITALS (7 sets, daily range): BP systolic 150–161; BP diastolic 81–89; PULSE 82–112; RESP 1–18; TEMP 36.6–36.9; O2SAT 89–98
[2022-11-08] MEDS: Albuterol/Ipratropium 3 ML UPD VIAL UPD ×3 (00:06→12:28)
[2022-11-08 00:18] LABS: Legionella Ag Detection Urine Negative (Negative)
[2022-11-08] MEDS: VANCOMYCIN/WATER (PEG) 1 GM/200 ML BAG IVPB (05:25)
[2022-11-08 06:49] LABS: Abs Immature Grans 0.11 10^3/uL (0.0-0.06); HCT 38.9 % (36.0-46.0); HGB 12.1 g/dL (11.2-15.7); MCH 27.1 pg (27.0-33.0); MCHC 31.1 % (32.0-36.0); MCV 87 fL (80-95); MPV 9.1 fL (8.0-11.0); Platelet Count 264 10^3/uL (130-400); RBC 4.47 10^6/uL (3.93-5.22); RDW 17.1 % (11.7-14.6); RDW-SD 53.5 fL; WBC 14.48 10^3/uL (4.4-10.8)
[2022-11-08 06:59] LABS: Anion Gap 3.7 mmol/L (3-11); BUN 15 mg/dL (7-18); CO2 33.3 mmol/L (21.0-32.0); CREATININE 0.8 mg/dL (0.55-1.02); Calcium 8.8 mg/dL (8.5-10.1); Chloride 98 mmol/L (98-107); Glucose 111 mg/dL (74-106); Magnesium 1.8 mg/dL (1.8-2.4); Potassium 3.5 mmol/L (3.5-5.1); Sodium 135 mmol/L (136-145)
[2022-11-08 07:28] LABS: Absolute Monocyte Count 0.58 10^3/uL (0.1-0.8); Atypical Lymphocytes % 10; Bands % 0
[2022-11-08 07:29] LABS: Diff Comment Manual Differential; RBC Morphology Normal
[2022-11-08] MEDS: amLODIPine 5 MG TAB PO (08:33)
[2022-11-08] MEDS: Normal Saline Flush 10 ML SYR IVP (08:33)
[2022-11-08] MEDS: guaiFENesin 600 MG TABCR PO (08:33)
[2022-11-08] MEDS: Pantoprazole 40 MG TABCR PO (08:34)
[2022-11-08] MEDS: Lisinopril 20 MG TAB PO (08:34)
[2022-11-08] MEDS: Cholecalciferol (Vitamin D3) 1,000 UNIT TAB 2000 UNITS PO (08:34)
[2022-11-08] MEDS: predniSONE 20 MG TAB 60 MG PO (08:34)
[2022-11-08] MEDS: Sertraline 100 MG TAB 200 MG PO (08:34)
[2022-11-08] MEDS: AZTREONAM 2,000 MG in Normal Saline 100 ML 200 MG IVPB (10:00)
--- NOTE | 2022-11-08 10:07 | CMPROGNOTE_ITS ---
- If Service Date Differs Date of service: 11/08/22 Time of Service: 10:07 Care Management Progress Note S/O: CM met with Cecilia, she is awake, alert and able to engage in conversation. She is sitting on her bed and reports that she is feeling better. She is in contact with [facility] during this admission for support with her community needs. A: 46 year old female admitted to [facility] on 11/05/22 for Multifocal pneumonia, COPD exacerbation P: Anticipate, Cecilia will discharge home with no new [facility] services when medically ready. She will follow up with her community providers and discharge plan of care as prescribed. Cecilia will transport via [facility] private vehicle. [facility] referral is placed.
[2022-11-08] MEDS: Insulin Aspart 300 UNITS/3 ML PEN SC (12:06)
--- NOTE | 2022-11-08 12:06 | DSE_ITS ---
Date of service: 11/08/22 Time of Service: 12:06 DS: Diagnosis Discharge Diagnosis (1) Multifocal pneumonia: Status: Acute (2) Acute asthma exacerbation: Status: Acute (3) Hypoxia: (4) Type 2 diabetes mellitus: Status: Chronic (5) Tobacco abuse: Status: Chronic (6) Thrush: Status: Acute (7) Pharyngitis: Status: Acute (8) Vitamin D deficiency: Status: Acute Discharge Plan Disposition Patient Disposition: Home Condition: Improving Discharge Details Reason For Visit: Multi-focal Pneumonia,COPD Exacerbation w/ Hypoxia Admit Date/Time: 11/05/22 23:35 Admit Provider: Adrián Redding Attending Provider: Adrián Redding Primary Care Provider: BRYCE SMITH Hospital Course Hospital Course: Ms Boudreaux is a 46 year old female with PMHx of asthma, tobacco abuse, T2DM, HTN, who was admitted to [facility] hospitalist service on 11/05/22 with acute exacerbation of asthma with hypoxia due to multifocal pneumonia. She tested negative for COVID-19, influenza, and RSV. She did have purulent sputum, but her sputum culture was negative. She tested negative for legionella, strep, and mycoplasma. She was treated with scheduled and prn bronchodilators, systemic empiric antibiotics (azithromycin, vancomycin, aztreonam), and steroids. Her MRSA screen was negative. She had evidence of oropharyngeal thrush and was treated with nystatin. Her oxygen requirement (up to 3L of O2; desaturating to 80% on RA) has resolved by the time of discharge. The patient states she has a nebulizer machine at home. She is getting discharged home today to complete a 5 day course of antibiotics (azithromycin and cefpodoxime x 2 more days). She is also being given a 4 day steroid taper. She is encouraged to stop smoking. She should follow up with her PCP and with Dr Mcginnis of pulmonlogy. Care for patient as well as completion of her discharge summary on day of discharge took 45 minutes. Home Meds and New Rx's Prescriptions: New ipratropium-albuterol 0.5 mg-3 mg(2.5 mg base)/3 mL Solution For Nebulization 3 ml UPD Q4H PRN PRN (Reason: shortness of breath or wheezing) Qty: 180 0RF Sore Throat (benzocaine-menth) 15-3.6 mg Lozenge 1 yarelis PO Q6H PRN PRNQty: 18 0RF Sore Throat (phenol) 1.4 % Aerosol,[place] 3 spray mucous membrane QID PRN PRNQty: 177 0RF cholecalciferol (vitamin D3) 25 mcg (1,000 unit) Tablet 2,000 unit PO DAILY Qty: 60 0RF guaifenesin [Mucus Relief ER] 600 mg Tablet Extended Release 12hr 600 mg PO BID PRN PRNQty: 30 0RF prednisone 20 mg Tablet See Rx Instructions .ROUTE .COMPLEX Qty: 6 0RF Rx Instructions: 40 mg PO daily x 2 days, then 20 mg PO daily x 2 days, then stop pantoprazole 40 mg Tablet,Delayed Release (Dr/Ec) 40 mg PO DAILY@0730 Qty: 7 0RF azithromycin 500 mg tablet 500 mg PO DAILY 2 Days Qty: 2 0RF cefpodoxime 200 mg tablet 200 mg PO BID Qty: 4 0RF Rx Instructions: first dose tonight must administer with a meal/food nystatin 100,000 unit/mL suspension 100,000 unit PO TID Qty: 60 0RF Rx Instructions: swish and swallow TID x 5 more days Continued lisinopril 20 mg Tablet 20 mg DAILY sertraline [Zoloft] 100 mg Tablet 200 mg PO QAM divalproex [Depakote] 500 mg Tablet,Delayed Release (Dr/Ec) 1,000 mg PO QHS risperidone [Risperdal] 2 mg Tablet 2 mg PO .QHS prazosin 2 mg Capsule 6 mg PO QHS melatonin 10 mg Tablet 10 mg PO QHS lorazepam 0.5 mg tablet 1 tab PO BID PRN PRN (Reason: Anxiety) Label Comments: TAKE ONE TABLET BY MOUTH TWICE A DAY NEEDED FOR ANXIETY Trulicity 3 mg/0.5 mL pen injector 1 device SUBCUT QWEEK Label Comments: INJECT ONCE WEEKLY DIRECTED Dulera 100-5 mcg/actuation HFA aerosol inhaler 2 puff inhalation BID Qty: 8.8 0RF cholecalciferol (vitamin D3) 25 mcg (1,000 unit) Tablet 1,000 units PO DAILY Qty: 0 0RF amlodipine [Norvasc] 5 mg tablet 5 mg PO DAILY Qty: 30 0RF Discharge Instructions Instructions: Prednisone (By mouth), Azithromycin (By mouth), Cefpodoxime Proxetil (By mouth), Ipratropium/Albuterol (By breathing), Asthma (DC), How to Stop Smoking (DC), Bacterial Pneumonia (DC) Additional Instructions: Finish your antibiotics and steroids as prescribed. Return to the hospital with blood sugars >400, if you have any fever, bleeding, chest pain, or worsening shortness of breath. You must not smoke! Follow up with your PCP in 1-2 weeks. Follow up with Dr Mcginnis (pulmonology). Stand Alone Forms: Nursing Discharge Form Referrals: BYRCE SMITH NP [Primary Care Provider] - 11/20/22 9:00 am Cynthia Mcginnis MD [ [facility] STAFF PHYSICIAN] - (Please call Friday to make a follow up appointment.) Activity:: Activity as Tolerated Equipment/Supplies:: No Equipment Needed Diet:: Carb Counting Discharge Orders Discharge Orders: Discharge Order (Routine); Ordered 11/08/22 Ordered By: Arleth Butler DS: Summary Time Spent with Patient providing and/or coordinating discharge services: Greater than 30 minutes Status at Discharge Functional status at discharge: independent ambulation Overall status at discharge: patient is progressing back to baseline Mental Status: mental status grossly normal Speech and Movement: speech and movement normal Mood: congruent mood Affect: normal affect Exam Narrative Exam Narrative: General: Pleasant obese female, mildly anxious, A&ox3, speaking in full sentences, looks better. HEENT: EOMI, MMM, pharyngeal erythema, no obvious thrush on my exam Heart: RRR, no m/r/g Lungs: Coarse breath sounds B - no wheezing Abdomen: soft, nontender, nondistended Extremities: no edema BLEs Psych Mental Status: mental status grossly normal Speech and Movement: speech and movement normal Mood: congruent mood Affect: normal affect DS: Data Vitals/I&O Vitals and I&O: Vital Signs Temperature 36.9 C 11/08/22 11:51 Temperature Source Tympanic 11/08/22 11:51 Pulse 82 11/08/22 11:51 Pulse Rhythm Regular 11/08/22 11:05 Respiratory Rate 18 11/08/22 11:51 Respiratory Effort 11/08/22 11:05 Respiratory Depth Normal 11/08/22 11:05 Respiratory Pattern Normal 11/08/22 11:05 Blood Pressure 150/87 H 11/08/22 11:51 Pulse Oximetry 92 11/08/22 11:51 Oxygen Delivery Method Room Air 11/08/22 11:51 Oxygen Flow Rate 0 11/08/22 11:51 Fraction of Inspired Oxygen (FIO2) 32 11/07/22 17:31 Pain Level 0 11/08/22 02:19 Comment 11/06/22 11:29 Intake & Output 11/07/22 11/08/22 11/08/22 23:59 11:59 23:59 Intake Total 450 / 1530 200 / 200 Balance 450 / 1530 200 / 200 Weight 88.6 kg Intake: IV 450 / 1050 200 / 200 Other: Urine Appearance Clear Clear Comment patient voids independently Voiding Methods Bedside Commode Toilet Data Completed and Pending Completed studies during hospitalization [Text1]: CTA chest 11/05/22: 1. No evidence of pulmonary embolism, thoracic aortic dissection or aneurysm.? 2. Bilateral diffuse ground-glass opacities.? An infectious or inflammatory process should be considered. 3. Mild cardiomegaly. Labs on day of discharge: Labs from last 24 hours 11/08/22 11/08/22 11/07/22 06:30 06:30 17:05 WBC 14.48 H RBC 4.47 Hgb 12.1 Hct 38.9 MCV 87 MCH 27.1 MCHC 31.1 L RDW 17.1 H Plt Count 264 MPV 9.1 Immature Gran % 0.0 Neutrophils % 38.0 Band Neutrophils % 0 Lymphocytes % 48.0 Atypical Lymphs % 10 Monocytes % 4.0 Eosinophils % 0.0 Basophils % 0.0 Nucleated RBC % 0.0 Absolute Neutrophils 5.50 Absolute Lymphocytes 8.40 H Absolute Monocytes 0.58 Absolute Eosinophils 0.00 Absolute Basophils 0.00 RBC Morphology Normal Sodium 135 L Potassium 3.5 Chloride 98 Carbon Dioxide 33.3 H Anion Gap 3.7 BUN 15 Creatinine 0.8 Est GFR (CKD-EPI 2020) 91.40 Glucose 111 H Calcium 8.8 Magnesium 1.8 Vancomycin Trough 13.8 Urine Legionella Ag 11/06/22 13:32 WBC RBC Hgb Hct MCV MCH MCHC RDW Plt Count MPV Immature Gran % Neutrophils % Band Neutrophils % Lymphocytes % Atypical Lymphs % Monocytes % Eosinophils % Basophils % Nucleated RBC % Absolute Neutrophils Absolute Lymphocytes Absolute Monocytes Absolute Eosinophils Absolute Basophils RBC Morphology Sodium Potassium Chloride Carbon Dioxide Anion Gap BUN Creatinine Est GFR (CKD-EPI 2020) Glucose Calcium Magnesium Vancomycin Trough Urine Legionella Ag Negative 11/07/22 17:30 Tonsil - Not Specified Group A Streptococcus Culture - Pending Preliminary micro results at discharge 11/06/22 18:05 Sputum Culture - Preliminary Sputum Normal Angélica 11/07/22 17:30 Group A Streptococcus Culture - Pending Tonsil - Not Specified PFSH All Active Problems (Updated 11/08/22 @ 14:19 by Arleth Butler MD) Vitamin D deficiency (Acute) Pharyngitis (Acute) Discharge planning issues (Acute) DVT prophylaxis (Acute) Thrush (Acute) Type 2 diabetes mellitus (Chronic) Multifocal pneumonia (Acute) COPD exacerbation (Acute) Pneumonia (Acute) Acute bronchitis (Acute) Acute asthma exacerbation (Acute) Tobacco abuse (Chronic) Encounter for medication refill (Acute) Medical History Acute asthma exacerbation Acute exacerbation of COPD with asthma Acute pneumonia ADHD Anxiety Bipolar disorder H/O suicide attempt Hypertension Hypoxia Non-insulin dependent diabetes mellitus Obesity (BMI 30.0-34.9) Surgical History S/P cholecystectomy Status post bilateral salpingectomy Family History Other Adopted Social History Smoking/Tobacco Use Status: Current every day Tobacco Type: cigarettes Smoking risk assessment performed?: Yes Alcohol Intake: never Substance use type: does not use Do you feel safe at home: Yes Do you feel safe in your relationship?: Yes
[2022-11-08] MEDS: LORazepam 0.5 MG TAB PO (12:55)
--- NOTE | 2022-11-08 13:37 | CMDISCH_ITS ---
- If Service Date Differs Date of service: 11/08/22 Time of Service: 13:37 LACE Index Scoring Tool - Questions: Length of Stay (in days): 3 Acuity (Admit via E.D.?): Yes Comorbidities: Chronic Pulmonary Disease E.D. Visits: 3 - Answers: Total Score: 11 Risk of Readmission: High Risk Care Management Discharge Reason for Hospitalization: Multifocal pneumonia, COPD exacerbation Discharge Plan: Cecilia is discharged home via [facility]. [facility] and discharge plan of care as prescribed. New RX's are transmitted to [facility]. Follow up appointments are scheduled with her PCP and Pulmonology. Cecilia will also follow up with [facility], for her community needs. Patient/Family Education Needs: Review discharge instructions, limitations, medications and plan to follow up with community providers. Discuss ask me three and goals of self care. Services Needed at Discharge: Transportation ([facility] private vehicle, coordinated by CM)
--- NOTE | 2022-11-08 14:13 | CHAPLAIN ---
Cecilia was resting in bed when I visited. She was pleasant and said she's being discharged this afternoon.
[2022-11-09 14:35] LABS: Streptococcus Pneumoniae Ag, U Negative (Negative)
[2022-11-11 18:09] LABS: Mycoplasma Pneumoniae PCR Negative; Specimen source sputum
== END 2022-11-08 15:10 | disposition home or self-care (01) | DRG 190 ==
LOC: ER 11-06 00:23 → MS 11-06 00:51
PROVIDERS: Internal Medicine; Admitting Provider Family Medicine; Emergency Provider Student in an Organized Health Care Education/Training Program; PCP Nurse Practitioner Family; Visit Provider Family Medicine
DX: J44.0 Chronic obstructive pulmonary disease with (acute) lower respiratory infection (principal); J18.9 Pneumonia, unspecified organism; J45.901 Unspecified asthma with (acute) exacerbation; B37.0 Candidal stomatitis; R04.2 Hemoptysis; J44.1 Chronic obstructive pulmonary disease with (acute) exacerbation; R09.02 Hypoxemia; F17.210 Nicotine dependence, cigarettes, uncomplicated; F41.9 Anxiety disorder, unspecified; F90.9 Attention-deficit hyperactivity disorder, unspecified type; E66.9 Obesity, unspecified; Z68.36 Body mass index [BMI] 36.0-36.9, adult; I10 Essential (primary) hypertension; F31.9 Bipolar disorder, unspecified; E11.65 Type 2 diabetes mellitus with hyperglycemia; T38.0X5A Adverse effect of glucocorticoids and synthetic analogues, initial encounter; J02.9 Acute pharyngitis, unspecified; E55.9 Vitamin D deficiency, unspecified
CPT/HCPCS: 36415; 71275; 80048; 80053; 80061; 80307; 82306; 82805; 84145; 85027; 87081; 87449; 87637; 93005; 94618; 96365; 96368; 96375; 99285; J1650; 80164; 80202; 82607; 83735; 83880; 84439; 84443; 84484; 85025; 87070; 87205; 87581; 87899; 93010; 94640; 99223; 99232; 99239; J0456; J2930; J3490; J7512; J7613; J7620

== ENCOUNTER 2022-11-15 10:57 | Emergency (ER) | payer MEDICARE, MEDICAID, SELFPAY ==
--- NOTE | 2022-11-15 11:00 | RT.EKG_ITS ---
APPROVED REPORT Exam: Resting ECG Reason for Exam: [id number] Patient Location: E HR:97 bpm ECG Measurements Heart Rate 97 AXIS WY 140 P 46 QRSd 79 QRS 67 QT 337 T 16 QTc 428 Conclusion Sinus rhythm...normal P axis, V-rate 60- 99. Sinus. Normal axis. No STEMI. I have reviewed and interpreted ECG and agree with software generated interpretation.
[2022-11-15 11:07] VITALS: BP 151/75; PULSE 102; RESP 20; TEMP 37.1; O2SAT 96
[2022-11-15 11:19] VITALS: RESP 32
--- NOTE | 2022-11-15 11:45 | DI.RAD_ITS ---
Exam(s) XR PORTABLE CHEST AP EXAM: XR PORTABLE CHEST AP CLINICAL HISTORY: shortness of breath, hypoxia TECHNIQUE: 2D digital imaging was performed of the chest. One image was obtained. An AP view was ob tained. COMPARISON: CR XR PORTABLE CHEST AP from 10/10/2022 CR,XR XR CHEST 2V PA LATERAL from 10/30/[address] CHEST PE CTA from 11/05/2022 FINDINGS: MEDIASTINUM: Normal. HEART: Normal. PULMONARY VASCULATURE: Normal. LUNGS: No focal consolidating infiltrates are seen. The lungs have a similar appearance compared to 11/05/2022. PLEURAL SPACE: No pleural effusion or pneumothorax. BONE:Within normal limits for the patient's age. Old bilateral rib fractures. OTHER FINDINGS:Normal. IMPRESSION: Overall, no significant change in appearance of the chest x-ray from 11/05/2022. No focal consolidat ion is seen. DATA REPOSITORY: RADIATION DOSE DELIVERED:
[2022-11-15 12:04] LABS: COVID-19 PCR Negative (Negative); Influenza A PCR Negative (Negative); Influenza B PCR Negative (Negative); RSV PCR Negative (Negative)
[2022-11-15 12:07] LABS: Source Nasopharynx
[2022-11-15 12:56] LABS: Abs Immature Grans 0.11 10^3/uL (0.0-0.06); Absolute Eosinophil Count 0.07 10^3/uL (0.0-0.7); Absolute Lymphocyte Count 3.66 10^3/uL (1.2-3.4); Absolute Monocyte Count 0.66 10^3/uL (0.1-0.8); Basophils % 0.4; Eosinophils % 0.6; Lymphocytes % 32.1; MCH 27.6 pg (27.0-33.0); MCHC 31.4 % (32.0-36.0); MCV 88 fL (80-95); MPV 9.5 fL (8.0-11.0); Monocytes % 5.8; Neutrophils % 60.1; Platelet Count 215 10^3/uL (130-400); RBC 3.99 10^6/uL (3.93-5.22); RDW 17.2 % (11.7-14.6); RDW-SD 55.3 fL; WBC 11.41 10^3/uL (4.4-10.8)
[2022-11-15 12:57] LABS: Absolute Basophil Count 0.05 10^3/uL (0.0-0.2); Absolute Neutrophil Count 6.86 10^3/uL (1.2-6.7)
[2022-11-15] MEDS: methylPREDNISolone SUCC 125 MG VIAL IVP (13:12)
[2022-11-15] MEDS: Albuterol/Ipratropium 3 ML UPD VIAL 6 ML UPD (13:12)
[2022-11-15 13:13] LABS: ALT 15 U/L (14-59); AST 20 U/L (15-37); Albumin 2.8 g/dL (3.4-5.0); Alkaline Phosphatase 86 U/L (46-116); Anion Gap 1.4 mmol/L (3-11); BUN 20 mg/dL (7-18); Bilirubin, Total 0.1 mg/dL (0.2-1.0); CO2 37.6 mmol/L (21.0-32.0); CREATININE 0.8 mg/dL (0.55-1.02); Calcium 8.8 mg/dL (8.5-10.1); Chloride 99 mmol/L (98-107); Glucose 198 mg/dL (74-106); Potassium 4.2 mmol/L (3.5-5.1); Sodium 138 mmol/L (136-145); Total Protein 6.6 g/dL (6.4-8.2); Troponin I < 50 ng/L (<or=60)
[2022-11-15 14:21] LABS: BE (Venous) 12 mmol/L (-2-3); HCO3 (Venous) 36 mmol/L (23-28); O2 Sat (Venous) 88 %; TCO2 (Venous) 32 mmol/L (24-29); pCO2 (Venous) 49 mmHg (41-51); pH (Venous) 7.47 (7.31-7.41); pO2 (Venous) 51 mmHg
--- NOTE | 2022-11-15 14:26 | W.PM.HP.N ---
Date of service: 11/15/22 Time of Service: 14:26 Assessment and Plan Assessment and plan (1) COPD exacerbation: Status: Acute Assessment and plan: Received high-dose steroids in the emergency department will continue prednisone 40 mg daily continue scheduled duo nebs with albuterol as needed (2) Hypoxia: Assessment and plan: Oxygen via nasal cannula wean as able (3) Type 2 diabetes mellitus: Status: Chronic Assessment and plan: Anticipate steroid induced hyperglycemia. Resistant SSI and Home diabetes management adjust as needed (4) Tobacco abuse: Status: Chronic Assessment and plan: provide prn nicotine replacement. (5) DVT prophylaxis: Status: Acute Assessment and plan: Sc enoxaparin (6) Discharge planning issues: Status: Deleted Assessment and plan: Full code Anticipate discharge home when medically stable No services anticipated discussed with DR Butler. History of Present Illness History of Present Illness Chief Complaint: shortness of breath Narrative: This is a 46-year-old female patient with a complex past medical history including asthma ongoing tobacco abuse diabetes hypertension who was recently hospitalized for multifocal pneumonia. She was discharged to home to complete her course with azithromycin and cefpodoxime she was also placed on a 4-day steroid taper. She has continued to smoke and returned today for increased shortness of breath her work-up in the emergency department is concerning for COPD exacerbation she tested negative for flu influenza and RSV again. No infiltrates on x-ray. She was given updrafts with improvement in her symptoms but she still remains hypoxic with oxygen requirement of 2 L via nasal cannula. PFSH All Active Problems (Updated 11/15/22 @ 14:34 by Agnes Almaguer NP) DVT prophylaxis (Acute) Vitamin D deficiency (Acute) Pharyngitis (Acute) Thrush (Acute) Type 2 diabetes mellitus (Chronic) Multifocal pneumonia (Acute) COPD exacerbation (Acute) Pneumonia (Acute) Acute bronchitis (Acute) Acute asthma exacerbation (Acute) Tobacco abuse (Chronic) Encounter for medication refill (Acute) Medical History Acute asthma exacerbation Acute exacerbation of COPD with asthma Acute pneumonia ADHD Anxiety Bipolar disorder H/O suicide attempt Hypertension Hypoxia Non-insulin dependent diabetes mellitus Obesity (BMI 30.0-34.9) Surgical History S/P cholecystectomy Status post bilateral salpingectomy Family History Other Adopted Social History Smoking/Tobacco Use Status: Current every day Tobacco Type: cigarettes Smoking risk assessment performed?: Yes Alcohol Intake: never Substance use type: does not use Do you feel safe at home: Yes Do you feel safe in your relationship?: Yes Meds Allergies and Home Medications Allergies Allergy/AdvReac Type Severity Reaction Status Date / Time amoxicillin Allergy Nausea Unverified 10/30/22 20:49 bee pollen Allergy Hives Unverified 10/30/22 20:49 fluoxetine [From Prozac] Allergy Nausea Unverified 10/30/22 20:49 hazelnut Allergy Hives Unverified 10/30/22 20:49 abelox Allergy Hives Uncoded 10/30/22 20:49 Home Medications Medication Instructions Recorded Confirmed Type divalproex 500 mg tablet,delayed 1,000 mg PO QHS 01/18/20 11/06/22 History release (Depakote) lisinopril 20 mg tablet 20 mg DAILY 01/18/20 11/06/22 History melatonin 10 mg tablet 10 mg PO QHS 01/18/20 11/06/22 History prazosin 2 mg capsule 6 mg PO QHS 01/18/20 11/06/22 History risperidone 2 mg tablet (Risperdal) 2 mg PO .QHS 01/18/20 11/06/22 History sertraline 100 mg tablet (Zoloft) 200 mg PO QAM 01/18/20 11/06/22 History dulaglutide 3 mg/0.5 mL 1 device subcut QWEEK 10/10/22 11/06/22 History subcutaneous pen injector (Trulicity) lorazepam 0.5 mg tablet 1 tab PO BID PRN PRN Anxiety 10/10/22 11/06/22 History cholecalciferol (vitamin D3) 25 1,000 units PO DAILY #0 tabs 10/13/22 11/06/22 Rx mcg (1,000 unit) tablet mometasone-formoterol HFA 100 2 puff inhalation BID #8.8 grams 10/13/22 10/30/22 Rx mcg-5 mcg/actuation aerosol inhaler (Dulera) amlodipine 5 mg tablet (Norvasc) 5 mg PO DAILY #30 tabs 10/31/22 11/06/22 Rx benzocaine 15 mg-menthol 3.6 mg 1 yarelis PO Q6H PRN PRN #18 ea 11/08/22 Rx lozenges (Sore Throat (benzocaine with menthol)) cefpodoxime 200 mg tablet 200 mg PO BID #4 tabs 11/08/22 Rx cholecalciferol (vitamin D3) 25 2,000 unit PO DAILY #60 tabs 11/08/22 Rx mcg (1,000 unit) tablet guaifenesin 600 mg tablet, 600 mg PO BID PRN PRN #30 tabs 11/08/22 Rx extended release 12 hr (Mucus Relief ER) ipratropium 0.5 mg-albuterol 3 mg 3 ml UPD Q4H PRN PRN shortness of 11/08/22 Rx (2.5 mg base)/3 mL nebulization breath or wheezing #180 mL soln nystatin 100,000 unit/mL oral 100,000 unit PO TID #60 mL 11/08/22 Rx suspension pantoprazole 40 mg tablet,delayed 40 mg PO DAILY@0730 #7 tabs 11/08/22 Rx release phenol 1.4 % mucosal aerosol spray 3 spray mucous membrane QID PRN 11/08/22 Rx (Sore Throat (phenol)) PRN #177 mL prednisone 20 mg tablet See Rx Instructions .Route 11/08/22 Rx .COMPLEX #6 tabs Results Labs Result diagrams: 11/15/22 12:49 11/15/22 12:49 Labs: Laboratory Results - last 24 hr 11/15/22 11/15/22 11/15/22 11:16 12:49 12:49 WBC 11.41 H RBC 3.99 Hgb 11.0 L Hct 35.0 L MCV 88 MCH 27.6 MCHC 31.4 L RDW 17.2 H Plt Count 215 MPV 9.5 Immature Gran % 1.0 Neutrophils % 60.1 Lymphocytes % 32.1 Monocytes % 5.8 Eosinophils % 0.6 Basophils % 0.4 Nucleated RBC % 0.0 Absolute Neutrophils 6.86 H Absolute Lymphocytes 3.66 H Absolute Monocytes 0.66 Absolute Eosinophils 0.07 Absolute Basophils 0.05 VBG pH VBG pCO2 VBG pO2 VBG HCO3 VBG Total CO2 VBG O2 Saturation VBG Base Excess Sodium 138 Potassium 4.2 Chloride 99 Carbon Dioxide 37.6 H Anion Gap 1.4 L BUN 20 H Creatinine 0.8 Est GFR (CKD-EPI 2020) 91.40 Glucose 198 H Calcium 8.8 Total Bilirubin 0.1 L AST 20 ALT 15 Alkaline Phosphatase 86 Troponin I < 50 Total Protein 6.6 Albumin 2.8 L COVID-19 Source Nasopharynx SARS-CoV-2 (PCR) Negative Influenza Type A (PCR) Negative Influenza Type B (PCR) Negative RSV (PCR) Negative 11/15/22 14:15 WBC RBC Hgb Hct MCV MCH MCHC RDW Plt Count MPV Immature Gran % Neutrophils % Lymphocytes % Monocytes % Eosinophils % Basophils % Nucleated RBC % Absolute Neutrophils Absolute Lymphocytes Absolute Monocytes Absolute Eosinophils Absolute Basophils VBG pH 7.47 H VBG pCO2 49 VBG pO2 51 VBG HCO3 36 H VBG Total CO2 32 H VBG O2 Saturation 88 VBG Base Excess 12 H Sodium Potassium Chloride Carbon Dioxide Anion Gap BUN Creatinine Est GFR (CKD-EPI 2020) Glucose Calcium Total Bilirubin AST ALT Alkaline Phosphatase Troponin I Total Protein Albumin COVID-19 Source SARS-CoV-2 (PCR) Influenza Type A (PCR) Influenza Type B (PCR) RSV (PCR) Last Vital Signs Temp 37.1 C 11/15/22 11:07 Pulse 102 H 11/15/22 11:07 Resp 32 H 11/15/22 11:19 BP 151/75 H 11/15/22 11:07 Pulse Ox 96 11/15/22 11:07
[2022-11-15 14:42] LABS: Lactate 2.3 mmol/L (0.6-1.4)
[2022-11-15 15:17] LABS: Procalcitonin < 0.1 ng/mL
--- NOTE | 2022-11-16 07:39 | NUR.NOTE ---
Nursing Note: Accessed patient chart to determine how many EKG orders were in the chart from the ED. There was an outstanding EKG in ordered status. There are no EKG's in the [facility] system that are outstanding. EKG order was deleted.
--- NOTE | 2022-11-16 10:01 | W.ED.GENAD ---
Discharge Plan Disposition Patient Disposition: Against Medical Advise Condition: Stable Discharge Details Clinical Impression: Acute respiratory failure Primary Care Provider: BRYCE SMITH ED Provider: Myla Romero Home Meds and New Rx's Prescriptions: New prednisone 20 mg tablet 40 mg PO ONCE Qty: 10 0RF Continued lisinopril 20 mg Tablet 20 mg DAILY sertraline [Zoloft] 100 mg Tablet 200 mg PO QAM divalproex [Depakote] 500 mg Tablet,Delayed Release (Dr/Ec) 1,000 mg PO QHS risperidone [Risperdal] 2 mg Tablet 2 mg PO .QHS prazosin 2 mg Capsule 6 mg PO QHS melatonin 10 mg Tablet 10 mg PO QHS lorazepam 0.5 mg tablet 1 tab PO BID PRN PRN (Reason: Anxiety) Label Comments: TAKE ONE TABLET BY MOUTH TWICE A DAY NEEDED FOR ANXIETY Trulicity 3 mg/0.5 mL pen injector 1 device SUBCUT QWEEK Label Comments: INJECT ONCE WEEKLY DIRECTED Dulera 100-5 mcg/actuation HFA aerosol inhaler 2 puff inhalation BID Qty: 8.8 0RF cholecalciferol (vitamin D3) 25 mcg (1,000 unit) Tablet 1,000 units PO DAILY Qty: 0 0RF amlodipine [Norvasc] 5 mg tablet 5 mg PO DAILY Qty: 30 0RF ipratropium-albuterol 0.5 mg-3 mg(2.5 mg base)/3 mL Solution For Nebulization 3 ml UPD Q4H PRN PRN (Reason: shortness of breath or wheezing) Qty: 180 0RF Sore Throat (benzocaine-menth) 15-3.6 mg Lozenge 1 yarelis PO Q6H PRN PRNQty: 18 0RF Sore Throat (phenol) 1.4 % Aerosol,[place] 3 spray mucous membrane QID PRN PRNQty: 177 0RF cholecalciferol (vitamin D3) 25 mcg (1,000 unit) Tablet 2,000 unit PO DAILY Qty: 60 0RF guaifenesin [Mucus Relief ER] 600 mg Tablet Extended Release 12hr 600 mg PO BID PRN PRNQty: 30 0RF prednisone 20 mg Tablet See Rx Instructions .ROUTE .COMPLEX Qty: 6 0RF Rx Instructions: 40 mg PO daily x 2 days, then 20 mg PO daily x 2 days, then stop pantoprazole 40 mg Tablet,Delayed Release (Dr/Ec) 40 mg PO DAILY@0730 Qty: 7 0RF cefpodoxime 200 mg tablet 200 mg PO BID Qty: 4 0RF Rx Instructions: first dose tonight must administer with a meal/food nystatin 100,000 unit/mL suspension 100,000 unit PO TID Qty: 60 0RF Rx Instructions: swish and swallow TID x 5 more days Discharge Instructions Additional Instructions: You are leaving against our medical recommendation, you are at risk for further deterioration and even Take your prednisone as prescribed Continue to use your inhalers Your oxygen level is low, you should be reevaluated at your earliest ability Continue to use all of your inhalers as prescribed Referrals: BRYCE SMITH ATHLETIC COORDINATOR [Primary Care Provider] - Discharge Data Discharge Date/Time-TO BE ENTERED AT DEPARTURE: 11/15/22 21:40 Medical Decision Making This 46-year-old complex female with history of recent diagnosis of COPD and recent admission for pneumonia presents for recurrent hypoxia Oxygen saturation in the emergency department is 85% on room air Given recent admission and comorbidities/body habitus, patient had diagnostic blood work she does have an elevated bicarb level other does not appear encephalopathic pH is within normal limits Lactate is elevated but likely secondary to administration of 2 DuoNeb's in the emergency department Chest x-ray does not show evidence of acute abnormality specifically no obvious infectious etiology of symptoms Responsive to DuoNeb's and reports improvement in shortness of breath however hypoxia persists and patient has been oxygen dependent throughout her encounter in the emergency department On 2 L she is approximately 91% on room air, it sounds like her baseline is about 90 to 93% I think she will need admission to the hospital for respiratory failure, likely in the presence of COPD I did consider pulmonary embolism however she had recent CTA that did not show evidence of PE and she has no associated discomfort in the presence of recent hospitalization for similar presentation She was cued for admission and is now declining to stay in the hospital stating that she would like to be home for the holidays, I did discuss the risk of further deterioration and even , patient has declined admission adamantly and is fully alert, oriented, of decisional capacity I did give her prescription for prednisone for home Given her recent completion of antibiotics I do not see benefit in fact more of the risk associated with supplying her with additional antibiotics at this time She is aware of risks associated with her decision and is discharged home in serious condition with acute hypoxia Placed on follow-up list for recheck and encouraged to return to the emergency department at her earliest ability Medical Records Medical records reviewed: Yes I reviewed the patient's medical records. Lab Data Lab results reviewed: Yes I reviewed the patient's lab results. HPI General Date/Time Provider Initiated Documentation: 11/15/22 11:47. HPI Narrative: This 46-year-old female with history of diabetes, tobacco abuse, COPD, pneumonia presents with report of difficulty breathing with a pulse oximetry reading of 70 to 75% at home. She states that she had recent hospitalization and was discharged approximately 5 days ago. She denies any fever or chills. She states she feels similarly to when she was diagnosed with pneumonia. She states she is using her inhalers as prescribed. She denies any current prednisone or antibiotic usage. She denies any known sick contacts. She states that she is having significant shortness of breath with any sort of exertion and is not using oxygen at home. She specifically denies any chest pain or calf pain or swelling. She denies prior history of coagulopathy. She states that she has not smoked for the past 5 days per patient. She denies any illicit drug use. Related Data Home Medications Medication Instructions Recorded Confirmed divalproex 500 mg tablet,delayed 1,000 mg PO QHS 01/18/20 11/06/22 release (Depakote) lisinopril 20 mg tablet 20 mg DAILY 01/18/20 11/06/22 melatonin 10 mg tablet 10 mg PO QHS 01/18/20 11/06/22 prazosin 2 mg capsule 6 mg PO QHS 01/18/20 11/06/22 risperidone 2 mg tablet (Risperdal) 2 mg PO .QHS 01/18/20 11/06/22 sertraline 100 mg tablet (Zoloft) 200 mg PO QAM 01/18/20 11/06/22 dulaglutide 3 mg/0.5 mL 1 device subcut QWEEK 10/10/22 11/06/22 subcutaneous pen injector (Trulicity) lorazepam 0.5 mg tablet 1 tab PO BID PRN PRN Anxiety 10/10/22 11/06/22 cholecalciferol (vitamin D3) 25 1,000 units PO DAILY #0 tabs 10/13/22 11/06/22 mcg (1,000 unit) tablet mometasone-formoterol HFA 100 2 puff inhalation BID #8.8 grams 10/13/22 10/30/22 mcg-5 mcg/actuation aerosol inhaler (Dulera) amlodipine 5 mg tablet (Norvasc) 5 mg PO DAILY #30 tabs 10/31/22 11/06/22 benzocaine 15 mg-menthol 3.6 mg 1 yarelis PO Q6H PRN PRN #18 ea 11/08/22 lozenges (Sore Throat (benzocaine with menthol)) cefpodoxime 200 mg tablet 200 mg PO BID #4 tabs 11/08/22 cholecalciferol (vitamin D3) 25 2,000 unit PO DAILY #60 tabs 11/08/22 mcg (1,000 unit) tablet guaifenesin 600 mg tablet, 600 mg PO BID PRN PRN #30 tabs 11/08/22 extended release 12 hr (Mucus Relief ER) ipratropium 0.5 mg-albuterol 3 mg 3 ml UPD Q4H PRN PRN shortness of 11/08/22 (2.5 mg base)/3 mL nebulization breath or wheezing #180 mL soln nystatin 100,000 unit/mL oral 100,000 unit PO TID #60 mL 11/08/22 suspension pantoprazole 40 mg tablet,delayed 40 mg PO DAILY@0730 #7 tabs 11/08/22 release phenol 1.4 % mucosal aerosol spray 3 spray mucous membrane QID PRN 11/08/22 (Sore Throat (phenol)) PRN #177 mL prednisone 20 mg tablet See Rx Instructions .Route 11/08/22 .COMPLEX #6 tabs prednisone 20 mg tablet 40 mg PO ONCE #10 tabs 11/15/22 Previous Rx's Medication Instructions Recorded cholecalciferol (vitamin D3) 25 1,000 units PO DAILY #0 tabs 10/13/22 mcg (1,000 unit) tablet mometasone-formoterol HFA 100 2 puff inhalation BID #8.8 grams 10/13/22 mcg-5 mcg/actuation aerosol inhaler (Dulera) amlodipine 5 mg tablet (Norvasc) 5 mg PO DAILY #30 tabs 10/31/22 benzocaine 15 mg-menthol 3.6 mg 1 yarelis PO Q6H PRN PRN #18 ea 11/08/22 lozenges (Sore Throat (benzocaine with menthol)) cefpodoxime 200 mg tablet 200 mg PO BID #4 tabs 11/08/22 cholecalciferol (vitamin D3) 25 2,000 unit PO DAILY #60 tabs 11/08/22 mcg (1,000 unit) tablet guaifenesin 600 mg tablet, 600 mg PO BID PRN PRN #30 tabs 11/08/22 extended release 12 hr (Mucus Relief ER) ipratropium 0.5 mg-albuterol 3 mg 3 ml UPD Q4H PRN PRN shortness of 11/08/22 (2.5 mg base)/3 mL nebulization breath or wheezing #180 mL soln nystatin 100,000 unit/mL oral 100,000 unit PO TID #60 mL 11/08/22 suspension pantoprazole 40 mg tablet,delayed 40 mg PO DAILY@0730 #7 tabs 11/08/22 release phenol 1.4 % mucosal aerosol spray 3 spray mucous membrane QID PRN 11/08/22 (Sore Throat (phenol)) PRN #177 mL prednisone 20 mg tablet See Rx Instructions .Route 11/08/22 .COMPLEX #6 tabs prednisone 20 mg tablet 40 mg PO ONCE #10 tabs 11/15/22 Allergies Allergy/AdvReac Type Severity Reaction Status Date / Time amoxicillin Allergy Nausea Unverified 10/30/22 20:49 bee pollen Allergy Hives Unverified 10/30/22 20:49 fluoxetine [From Prozac] Allergy Nausea Unverified 10/30/22 20:49 hazelnut Allergy Hives Unverified 10/30/22 20:49 abelox Allergy Hives Uncoded 10/30/22 20:49 General Stated Complaint: SOB ZACK: 3 Review of Systems All systems reviewed & are unremarkable except as noted in HPI and below PFSH All Active Problems (Updated 11/15/22 @ 15:09 by GÉNESIS George) DVT prophylaxis (Acute) Acute respiratory failure (Acute) Vitamin D deficiency (Acute) Pharyngitis (Acute) Thrush (Acute) Type 2 diabetes mellitus (Chronic) Multifocal pneumonia (Acute) COPD exacerbation (Acute) Pneumonia (Acute) Acute bronchitis (Acute) Acute asthma exacerbation (Acute) Tobacco abuse (Chronic) Encounter for medication refill (Acute) Medical History Acute asthma exacerbation Acute exacerbation of COPD with asthma Acute pneumonia ADHD Anxiety Bipolar disorder H/O suicide attempt Hypertension Hypoxia Non-insulin dependent diabetes mellitus Obesity (BMI 30.0-34.9) Surgical History S/P cholecystectomy Status post bilateral salpingectomy Family History Other Adopted Social History Smoking/Tobacco Use Status: Current every day Tobacco Type: cigarettes Smoking risk assessment performed?: Yes Alcohol Intake: never Substance use type: does not use Do you feel safe at home: Yes Do you feel safe in your relationship?: Yes Exam Const General: cooperative, comfortable and no acute distress HENMT Head: normal to inspection Eyes Sclera: sclerae normal Resp Effort & Inspection: normal respiratory effort and tachypneic Auscultation: diminished lung sounds Cardio Rate: tachycardic Rhythm: regular rhythm Heart Sounds: no murmurs GI Inspection: normal to inspection Skin General skin exam: no rashes or lesions noted Neuro General: patient alert and patient oriented x3 Extrem Other: Distal pulses intact, no calf swelling or tenderness Course Vital Signs Vital signs: Vital Signs Temperature 37.1 C 11/15/22 11:07 Pulse 102 H 11/15/22 11:07 Respiratory Rate 20 11/15/22 11:07 Blood Pressure 151/75 H 11/15/22 11:07 Pulse Oximetry 96 11/15/22 11:07 Temperature 37.1 C 11/15/22 11:07 Temperature Source Skin 11/15/22 11:07 Pulse 102 H 11/15/22 11:07 Respiratory Rate 32 H 11/15/22 11:19 Respiratory Effort 11/15/22 11:19 Respiratory Depth Shallow 11/15/22 11:19 Respiratory Pattern Tachypnea 11/15/22 11:19 Blood Pressure 151/75 H 11/15/22 11:07 Blood Pressure Position Sitting 11/15/22 11:07 Pulse Oximetry 96 11/15/22 11:07 Oxygen Delivery Method Room Air 11/15/22 11:07 Oxygen Flow Rate 0 11/15/22 11:07 Pain Level 0 11/15/22 11:07 Lab/Test Results Lab/Test Results: Laboratory Tests Range/Units 11/15/22 11/15/22 11/15/22 11:16 12:49 12:49 WBC (4.4-10.8) 10^3/uL 11.41 H RBC (3.93-5.22) 10^6/uL 3.99 Hgb (11.2-15.7) g/dL 11.0 L Hct (36.0-46.0) % 35.0 L MCV (80-95) fL 88 MCH (27.0-33.0) pg 27.6 MCHC (32.0-36.0) % 31.4 L RDW (11.7-14.6) % 17.2 H Plt Count (130-400) 10^3/uL 215 MPV (8.0-11.0) fL 9.5 Immature Gran % 1.0 Neutrophils % 60.1 Lymphocytes % 32.1 Monocytes % 5.8 Eosinophils % 0.6 Basophils % 0.4 Nucleated RBC % (0.0-0.3) % 0.0 Absolute Neutrophils (1.2-6.7) 10^3/uL 6.86 H Absolute Lymphocytes (1.2-3.4) 10^3/uL 3.66 H Absolute Monocytes (0.1-0.8) 10^3/uL 0.66 Absolute Eosinophils (0.0-0.7) 10^3/uL 0.07 Absolute Basophils (0.0-0.2) 10^3/uL 0.05 VBG pH VBG pCO2 VBG pO2 VBG HCO3 VBG Total CO2 VBG O2 Saturation VBG Base Excess VBG Lactate (0.6-1.4) mmol/L Sodium (136-145) mmol/L 138 Potassium (3.5-5.1) mmol/L 4.2 Chloride (98-107) mmol/L 99 Carbon Dioxide (21.0-32.0) mmol/L 37.6 H Anion Gap (3-11) mmol/L 1.4 L BUN (7-18) mg/dL 20 H Creatinine (0.55-1.02) mg/dL 0.8 Est GFR (CKD-EPI 2020) (mL/min/1.73m2) 91.40 Glucose (74-106) mg/dL 198 H Calcium (8.5-10.1) mg/dL 8.8 Magnesium Total Bilirubin (0.2-1.0) mg/dL 0.1 L AST (15-37) U/L 20 ALT (14-59) U/L 15 Alkaline Phosphatase (46-116) U/L 86 Troponin I (<or=60) ng/L < 50 Total Protein (6.4-8.2) g/dL 6.6 Albumin (3.4-5.0) g/dL 2.8 L Procalcitonin ng/mL Urine Opiates Screen Urine Methadone Screen Ur Barbiturates Screen Ur Tricyclics Screen Ur Amphetamines Screen U Benzodiazepines Scrn Urine Cocaine Screen Ur THC Screen COVID-19 Source Nasopharynx SARS-CoV-2 (PCR) (Negative) Negative Influenza Type A (PCR) (Negative) Negative Influenza Type B (PCR) (Negative) Negative RSV (PCR) (Negative) Negative Range/Units 11/15/22 11/15/22 11/15/22 13:17 14:15 14:32 WBC (4.4-10.8) 10^3/uL RBC (3.93-5.22) 10^6/uL Hgb (11.2-15.7) g/dL Hct (36.0-46.0) % MCV (80-95) fL MCH (27.0-33.0) pg MCHC (32.0-36.0) % RDW (11.7-14.6) % Plt Count (130-400) 10^3/uL MPV (8.0-11.0) fL Immature Gran % Neutrophils % Lymphocytes % Monocytes % Eosinophils % Basophils % Nucleated RBC % (0.0-0.3) % Absolute Neutrophils (1.2-6.7) 10^3/uL Absolute Lymphocytes (1.2-3.4) 10^3/uL Absolute Monocytes (0.1-0.8) 10^3/uL Absolute Eosinophils (0.0-0.7) 10^3/uL Absolute Basophils (0.0-0.2) 10^3/uL VBG pH Cancelled 7.47 H VBG pCO2 Cancelled 49 VBG pO2 Cancelled 51 VBG HCO3 Cancelled 36 H VBG Total CO2 Cancelled 32 H VBG O2 Saturation Cancelled 88 VBG Base Excess Cancelled 12 H VBG Lactate (0.6-1.4) mmol/L 2.3 H* Sodium (136-145) mmol/L Potassium (3.5-5.1) mmol/L Chloride (98-107) mmol/L Carbon Dioxide (21.0-32.0) mmol/L Anion Gap (3-11) mmol/L BUN (7-18) mg/dL Creatinine (0.55-1.02) mg/dL Est GFR (CKD-EPI 2020) (mL/min/1.73m2) Glucose (74-106) mg/dL Calcium (8.5-10.1) mg/dL Magnesium Total Bilirubin (0.2-1.0) mg/dL AST (15-37) U/L ALT (14-59) U/L Alkaline Phosphatase (46-116) U/L Troponin I (<or=60) ng/L Total Protein (6.4-8.2) g/dL Albumin (3.4-5.0) g/dL Procalcitonin ng/mL < 0.1 Urine Opiates Screen Urine Methadone Screen Ur Barbiturates Screen Ur Tricyclics Screen Ur Amphetamines Screen U Benzodiazepines Scrn Urine Cocaine Screen Ur THC Screen COVID-19 Source SARS-CoV-2 (PCR) (Negative) Influenza Type A (PCR) (Negative) Influenza Type B (PCR) (Negative) RSV (PCR) (Negative) Range/Units 11/15/22 11/16/22 15:03 05:35 WBC (4.4-10.8) 10^3/uL RBC (3.93-5.22) 10^6/uL Hgb (11.2-15.7) g/dL Hct (36.0-46.0) % MCV (80-95) fL MCH (27.0-33.0) pg MCHC (32.0-36.0) % RDW (11.7-14.6) % Plt Count (130-400) 10^3/uL MPV (8.0-11.0) fL Immature Gran % Neutrophils % Lymphocytes % Monocytes % Eosinophils % Basophils % Nucleated RBC % (0.0-0.3) % Absolute Neutrophils (1.2-6.7) 10^3/uL Absolute Lymphocytes (1.2-3.4) 10^3/uL Absolute Monocytes (0.1-0.8) 10^3/uL Absolute Eosinophils (0.0-0.7) 10^3/uL Absolute Basophils (0.0-0.2) 10^3/uL VBG pH VBG pCO2 VBG pO2 VBG HCO3 VBG Total CO2 VBG O2 Saturation VBG Base Excess VBG Lactate (0.6-1.4) mmol/L Sodium (136-145) mmol/L Cancelled Potassium (3.5-5.1) mmol/L Cancelled Chloride (98-107) mmol/L Cancelled Carbon Dioxide (21.0-32.0) mmol/L Cancelled Anion Gap (3-11) mmol/L Cancelled BUN (7-18) mg/dL Cancelled Creatinine (0.55-1.02) mg/dL Cancelled Est GFR (CKD-EPI 2020) (mL/min/1.73m2) Cancelled Glucose (74-106) mg/dL Cancelled Calcium (8.5-10.1) mg/dL Cancelled Magnesium Cancelled Total Bilirubin (0.2-1.0) mg/dL AST (15-37) U/L ALT (14-59) U/L Alkaline Phosphatase (46-116) U/L Troponin I (<or=60) ng/L Total Protein (6.4-8.2) g/dL Albumin (3.4-5.0) g/dL Procalcitonin ng/mL Urine Opiates Screen Cancelled Urine Methadone Screen Cancelled Ur Barbiturates Screen Cancelled Ur Tricyclics Screen Cancelled Ur Amphetamines Screen Cancelled U Benzodiazepines Scrn Cancelled Urine Cocaine Screen Cancelled Ur THC Screen Cancelled COVID-19 Source SARS-CoV-2 (PCR) (Negative) Influenza Type A (PCR) (Negative) Influenza Type B (PCR) (Negative) RSV (PCR) (Negative)
== END 2022-11-15 21:40 | disposition left against medical advice (07) ==
LOC: ER 15:09 → MS 15:21
PROVIDERS: Emergency Provider Physician Assistant; PCP Nurse Practitioner Family
DX: J96.01 Acute respiratory failure with hypoxia (principal); R74.01 Elevation of levels of liver transaminase levels; J44.1 Chronic obstructive pulmonary disease with (acute) exacerbation; J45.901 Unspecified asthma with (acute) exacerbation; E11.9 Type 2 diabetes mellitus without complications; I10 Essential (primary) hypertension; Z20.822 Contact with and (suspected) exposure to COVID-19; Z53.29 Procedure and treatment not carried out because of patient's decision for other reasons
CPT/HCPCS: 36415; 80053; 80307; 82805; 84145; 87637; 93005; 96372; 96374; 99284; 99285; 71045; 83605; 84484; 85025; 93010; J2930; J7620

== ENCOUNTER 2022-11-18 22:30 | Inpatient (IN) | payer MEDICARE, MEDICAID, SELFPAY ==
[2022-11-18] VITALS (21 sets, daily range): BP systolic 105–149; BP diastolic 65–91; PULSE 96–109; RESP 8–29; TEMP 37.1; O2SAT 87–98
--- NOTE | 2022-11-18 22:15 | RT.EKG_ITS ---
APPROVED REPORT Exam: Resting ECG Reason for Exam: short of breath Patient Location: E HR:107 bpm ECG Measurements Heart Rate 107 AXIS GA 138 P 51 QRSd 78 QRS 74 QT 331 T 37 QTc 442 Conclusion Sinus tachycardia...rate> 99 Anteroseptal infarct, old...Q >40mS, V1-V2 sinus tachycardia, normal axis, normal intervals, non ischemic
--- NOTE | 2022-11-18 22:30 | DI.RAD_ITS ---
Exam(s) XR PORTABLE CHEST AP EXAM: XR PORTABLE CHEST AP CLINICAL HISTORY: cough, hx of copd. TECHNIQUE: 2D digital imaging was performed. COMPARISON: CR XR PORTABLE CHEST AP from 11/15/2022 FINDINGS: Single AP portable view. Heart size is upper normal. The mediastinum is not widened. There is hazy infiltrates throughout both lung wilkins, more so on the right side. No obvious pleural effusions. No Ghislaine B lines. No pneumothorax. Healed fractures of bilateral 6 ribs are again noted. IMPRESSION: Subtle bilateral infiltrates, right more so than left. No obvious pleural effusions. Close follow-u p recommended. DATA REPOSITORY: RADIATION DOSE DELIVERED:
--- NOTE | 2022-11-18 22:36 | W.ED.GENAD ---
Discharge Plan Discharge Details Chief Complaint: SOB Primary Care Provider: BRYCE SMITH ED Provider: Mono Rush Home Meds and New Rx's Prescriptions: No Action lisinopril 20 mg Tablet 20 mg DAILY sertraline [Zoloft] 100 mg Tablet 200 mg PO QAM divalproex [Depakote] 500 mg Tablet,Delayed Release (Dr/Ec) 1,000 mg PO QHS risperidone [Risperdal] 2 mg Tablet 2 mg PO .QHS prazosin 2 mg Capsule 6 mg PO QHS melatonin 10 mg Tablet 10 mg PO QHS lorazepam 0.5 mg tablet 1 tab PO BID PRN PRN (Reason: Anxiety) Label Comments: TAKE ONE TABLET BY MOUTH TWICE A DAY NEEDED FOR ANXIETY Trulicity 3 mg/0.5 mL pen injector 1 device SUBCUT QWEEK Label Comments: INJECT ONCE WEEKLY DIRECTED Dulera 100-5 mcg/actuation HFA aerosol inhaler 2 puff inhalation BID Qty: 8.8 0RF amlodipine [Norvasc] 5 mg tablet 5 mg PO DAILY Qty: 30 0RF ipratropium-albuterol 0.5 mg-3 mg(2.5 mg base)/3 mL Solution For Nebulization 3 ml UPD Q4H PRN PRN (Reason: shortness of breath or wheezing) Qty: 180 0RF Sore Throat (benzocaine-menth) 15-3.6 mg Lozenge 1 yarelis PO Q6H PRN PRNQty: 18 0RF Sore Throat (phenol) 1.4 % Aerosol,[place] 3 spray mucous membrane QID PRN PRNQty: 177 0RF guaifenesin [Mucus Relief ER] 600 mg Tablet Extended Release 12hr 600 mg PO BID PRN PRNQty: 30 0RF prednisone 20 mg Tablet See Rx Instructions .ROUTE .COMPLEX Qty: 6 0RF Rx Instructions: 40 mg PO daily x 2 days, then 20 mg PO daily x 2 days, then stop pantoprazole 40 mg Tablet,Delayed Release (Dr/Ec) 40 mg PO DAILY@0730 Qty: 7 0RF nystatin 100,000 unit/mL suspension 100,000 unit PO TID Qty: 60 0RF Rx Instructions: swish and swallow TID x 5 more days cholecalciferol (vitamin D3) 25 mcg (1,000 unit) tablet 500 units PO DAILY Medical Decision Making 46-year-old female history of COPD presents with cough wheeze and shortness of breath, placed on supplemental oxygenation by EMS with improvement, still with some tachypnea and expiratory wheeze, no peripheral edema. Able to speak in full sentences however in mild distress. We will continue with nebulized albuterol, ipratropium, dexamethasone, will test basic labs screening EKG and chest x-ray. Likely COPD exacerbation consider viral etiology versus pneumonia lower suspicion for ACS or PE or aortic pathology. Disposition pending reassessment and results 23: 52 multifocal infiltrate seen on x-ray. Started on Levaquin given history of COPD. Will attempt to down titrate O2 if able to wean off can go home with close follow-up otherwise with the admission HPI General Date/Time Provider Initiated Documentation: 11/18/22 22:31. HPI Narrative: 46-year-old female history of COPD presents with shortness of breath, wheezing and cough, requiring supplemental oxygen in the field currently on nasal cannula 94%. Related Data Home Medications Medication Instructions Recorded Confirmed divalproex 500 mg tablet,delayed 1,000 mg PO QHS 01/18/20 11/18/22 release (Depakote) lisinopril 20 mg tablet 20 mg DAILY 01/18/20 11/18/22 melatonin 10 mg tablet 10 mg PO QHS 01/18/20 11/18/22 prazosin 2 mg capsule 6 mg PO QHS 01/18/20 11/18/22 risperidone 2 mg tablet (Risperdal) 2 mg PO .QHS 01/18/20 11/18/22 sertraline 100 mg tablet (Zoloft) 200 mg PO QAM 01/18/20 11/18/22 dulaglutide 3 mg/0.5 mL 1 device subcut QWEEK 10/10/22 11/18/22 subcutaneous pen injector (Trulicity) lorazepam 0.5 mg tablet 1 tab PO BID PRN PRN Anxiety 10/10/22 11/18/22 mometasone-formoterol HFA 100 2 puff inhalation BID #8.8 grams 10/13/22 11/18/22 mcg-5 mcg/actuation aerosol inhaler (Dulera) amlodipine 5 mg tablet (Norvasc) 5 mg PO DAILY #30 tabs 10/31/22 11/18/22 benzocaine 15 mg-menthol 3.6 mg 1 yarelis PO Q6H PRN PRN #18 ea 11/08/22 11/18/22 lozenges (Sore Throat (benzocaine with menthol)) guaifenesin 600 mg tablet, 600 mg PO BID PRN PRN #30 tabs 11/08/22 11/18/22 extended release 12 hr (Mucus Relief ER) ipratropium 0.5 mg-albuterol 3 mg 3 ml UPD Q4H PRN PRN shortness of 11/08/22 11/18/22 (2.5 mg base)/3 mL nebulization breath or wheezing #180 mL soln nystatin 100,000 unit/mL oral 100,000 unit PO TID #60 mL 11/08/22 11/18/22 suspension pantoprazole 40 mg tablet,delayed 40 mg PO DAILY@0730 #7 tabs 11/08/22 11/18/22 release phenol 1.4 % mucosal aerosol spray 3 spray mucous membrane QID PRN 11/08/22 11/18/22 (Sore Throat (phenol)) PRN #177 mL prednisone 20 mg tablet See Rx Instructions .Route 11/08/22 11/18/22 .COMPLEX #6 tabs cholecalciferol (vitamin D3) 25 500 units PO DAILY 11/18/22 11/18/22 mcg (1,000 unit) tablet Previous Rx's Medication Instructions Recorded mometasone-formoterol HFA 100 2 puff inhalation BID #8.8 grams 10/13/22 mcg-5 mcg/actuation aerosol inhaler (Dulera) amlodipine 5 mg tablet (Norvasc) 5 mg PO DAILY #30 tabs 10/31/22 benzocaine 15 mg-menthol 3.6 mg 1 yarelis PO Q6H PRN PRN #18 ea 11/08/22 lozenges (Sore Throat (benzocaine with menthol)) guaifenesin 600 mg tablet, 600 mg PO BID PRN PRN #30 tabs 11/08/22 extended release 12 hr (Mucus Relief ER) ipratropium 0.5 mg-albuterol 3 mg 3 ml UPD Q4H PRN PRN shortness of 11/08/22 (2.5 mg base)/3 mL nebulization breath or wheezing #180 mL soln nystatin 100,000 unit/mL oral 100,000 unit PO TID #60 mL 11/08/22 suspension pantoprazole 40 mg tablet,delayed 40 mg PO DAILY@0730 #7 tabs 11/08/22 release phenol 1.4 % mucosal aerosol spray 3 spray mucous membrane QID PRN 11/08/22 (Sore Throat (phenol)) PRN #177 mL prednisone 20 mg tablet See Rx Instructions .Route 11/08/22 .COMPLEX #6 tabs Allergies Allergy/AdvReac Type Severity Reaction Status Date / Time amoxicillin Allergy Nausea Unverified 11/18/22 22:28 bee pollen Allergy Hives Unverified 11/18/22 22:28 fluoxetine [From Prozac] Allergy Nausea Unverified 11/18/22 22:28 hazelnut Allergy Hives Unverified 11/18/22 22:28 abelox Allergy Hives Uncoded 11/18/22 22:28 General Stated Complaint: SOB ZACK: 3 Review of Systems Narrative: Review of Systems Constitutional: negative Eyes: negative ENT: negative Cardiovascular: negative Respiratory: Cough, shortness of breath Gastrointestinal: negative : negative Musculoskeletal: negative Skin: negative Neurologic: negative Psych: negative PFSH All Active Problems (Updated 11/15/22 @ 15:09 by GÉNESIS George) DVT prophylaxis (Acute) Acute respiratory failure (Acute) Vitamin D deficiency (Acute) Pharyngitis (Acute) Thrush (Acute) Type 2 diabetes mellitus (Chronic) Multifocal pneumonia (Acute) COPD exacerbation (Acute) Pneumonia (Acute) Acute bronchitis (Acute) Acute asthma exacerbation (Acute) Tobacco abuse (Chronic) Encounter for medication refill (Acute) Medical History Acute asthma exacerbation Acute exacerbation of COPD with asthma Acute pneumonia ADHD Anxiety Bipolar disorder H/O suicide attempt Hypertension Hypoxia Non-insulin dependent diabetes mellitus Obesity (BMI 30.0-34.9) Surgical History S/P cholecystectomy Status post bilateral salpingectomy Family History Other Adopted Social History Smoking/Tobacco Use Status: Current every day Tobacco Type: cigarettes Smoking risk assessment performed?: Yes Alcohol Intake: never Substance use type: does not use Do you feel safe at home: Yes Do you feel safe in your relationship?: Yes Exam Narrative Exam Narrative: Physical Examination General: alert, awake, cooperative, mild distress HEENT: normocephalic, atraumatic; PERRL, EOM intact, conjunctiva normal; no nasal discharge; moist mucous membranes, oral and pharyngeal mucosa normal, tolerating secretions Neck: supple, trachea midline; full ROM Chest: normal to inspection Respiratory: Tachypnea, expiratory wheeze bilaterally Cardiac: Tachycardia, regular rhythm, S1S2 intact, no murmurs rubs or gallops GI: abdomen soft, non-tender, non-distended; no palpable mass or hepatosplenomegaly Skin: no lesions, rashes or trauma appreciated Neuro: AAOx3, normal speech, moving all extremities Extremities: No peripheral edema Psych: Appropriate mood and affect Course Vital Signs Vital signs: Vital Signs Temperature 37.1 C 11/18/22 22:23 Pulse 108 H 11/18/22 22:23 Respiratory Rate 18 11/18/22 22:23 Blood Pressure 149/78 H 11/18/22 22:23 Pulse Oximetry 94 11/18/22 22:23 Temperature 37.1 C 11/18/22 22:23 Pulse 108 H 11/18/22 22:23 Respiratory Rate 18 11/18/22 22:23 Blood Pressure 149/78 H 11/18/22 22:23 Pulse Oximetry 94 11/18/22 22:23 Pain Level 9 11/18/22 22:23
[2022-11-18 22:40] LABS: Abs Immature Grans 0.23 10^3/uL (0.0-0.06); Absolute Basophil Count 0.03 10^3/uL (0.0-0.2); Absolute Eosinophil Count 0.01 10^3/uL (0.0-0.7); Absolute Neutrophil Count 10.06 10^3/uL (1.2-6.7); Basophils % 0.2; Eosinophils % 0.1; HCT 36.3 % (36.0-46.0); HGB 11.5 g/dL (11.2-15.7); Immature Grans % 1.8; Lymphocytes % 17.5; MCH 28.1 pg (27.0-33.0); MCHC 31.7 % (32.0-36.0); MCV 89 fL (80-95); MPV 9.3 fL (8.0-11.0); Monocytes % 3.8; Neutrophils % 76.6; Nucleated RBC 0.5 % (0.0-0.3); Platelet Count 259 10^3/uL (130-400); RBC 4.09 10^6/uL (3.93-5.22); RDW 18.2 % (11.7-14.6); RDW-SD 55.8 fL; WBC 13.13 10^3/uL (4.4-10.8)
[2022-11-18] MEDS: Levalbuterol 1.25 MG/3 ML UPD VIAL UPD (22:48)
[2022-11-18] MEDS: Normal Saline 500 ML 1000 ML IV (22:48)
[2022-11-18] MEDS: Dexamethasone 10 MG/ML VIAL IVP (22:49)
[2022-11-18] MEDS: Ipratropium 0.5 MG/2.5 ML UPD VIAL UPD (22:53)
[2022-11-18 23:01] LABS: ALT 24 U/L (14-59); AST 21 U/L (15-37); Albumin 3.2 g/dL (3.4-5.0); Alkaline Phosphatase 91 U/L (46-116); Anion Gap 9.2 mmol/L (3-11); BUN 13 mg/dL (7-18); Bilirubin, Total 0.3 mg/dL (0.2-1.0); CO2 30.8 mmol/L (21.0-32.0); CREATININE 1.3 mg/dL (0.55-1.02); Calcium 8.6 mg/dL (8.5-10.1); Chloride 97 mmol/L (98-107); Estimated GFR 51.04 (mL/min/1.73m2); Glucose 266 mg/dL (74-106); Magnesium 1.7 mg/dL (1.8-2.4); Potassium 4.5 mmol/L (3.5-5.1); Sodium 137 mmol/L (136-145); Total Protein 7.1 g/dL (6.4-8.2)
[2022-11-18 23:16] LABS: COVID-19 PCR Negative (Negative); Influenza A PCR Negative (Negative); Influenza B PCR Negative (Negative); RSV PCR Negative (Negative)
[2022-11-18 23:18] LABS: Source Nasopharynx
--- NOTE | 2022-11-18 23:22 | DI.VRAD_ITS ---
PROCEDURE INFORMATION: Exam: XR Chest Exam date and time: 11/18/2022 10:38 PM Age: 46 years old Clinical indication: Other: Cough, HX of copd TECHNIQUE: Imaging protocol: Radiologic exam of the chest. Views: 1 view. COMPARISON: CR XR PORTABLE CHEST AP 11/15/2022 11:49 AM FINDINGS: Lungs: Lungs are adequately inflated and symmetric. There is right greater than left patchy perihilar opacity with indistinct appearance of the pulmonary vascularity. There are subtle right greater than left patchy perihilar opacities within the mid to lower lung wilkins. Pleural spaces: No visible pleural effusion. No pneumothorax. Heart/Mediastinum: Cardiomediastinal contours are at the upper limits of normal for size. Bones/joints: Again noted old bilateral rib fractures. No acute osseous finding. IMPRESSION: Patchy right greater than left perihilar and mid to lower lung field opacities. Correlate clinically for atelectasis versus infection versus edema. Dictated and Authenticated by: Mervin Chapman MD. Ordering:YANCY Villareal MD
[2022-11-18] MEDS: levoFLOXacin 500 MG, levoFLOXacin 250 MG 750 MG PO (23:40)
[2022-11-19] VITALS (39 sets, daily range): BP systolic 130–184; BP diastolic 70–100; PULSE 79–105; RESP 4–28; TEMP 36.4–37.3; O2SAT 88–97
--- NOTE | 2022-11-19 00:08 | W.EDPROG ---
Date of service: 11/19/22 Time of Service: 00:05 Medical Decision Making 0005 --please see Dr. Rush's note for initial presentation, exam and plan. Case endorsed to continue to monitor and reassess after nebs. If patient feels better, can consider discharge to home. Patient reassessed and she states she feels a little better. She is currently 93% on 3 L. We will continue to titrate down O2. She still has audible wheezing. We will give a 5 mg albuterol neb and reassess. 0050 --attempted to titrate down O2, she is on 1 L nasal cannula and oxygen saturation 86%. Will admit for continued monitoring, treatment of pneumonia, supplemental O2 and nebs as needed. 0145 --discussed with hospitalist who accepts pt for admission. Medical Records Medical records reviewed: Yes I reviewed the patient's medical records. Imaging Data Radiologic Study: Radiologist's impression: XR Chest Exam date and time: 11/18/2022 10:38 PM Age: 46 years old Clinical indication: Other: Cough, HX of copd TECHNIQUE: Imaging protocol: Radiologic exam of the chest. Views: 1 view. COMPARISON: CR XR PORTABLE CHEST AP 11/15/2022 11:49 AM FINDINGS: Lungs: Lungs are adequately inflated and symmetric. There is right greater than left patchy perihilar opacity with indistinct appearance of the pulmonary vascularity. There are subtle right greater than left patchy perihilar opacities within the mid to lower lung wilkins. Pleural spaces: No visible pleural effusion. No pneumothorax. Heart/Mediastinum: Cardiomediastinal contours are at the upper limits of normal for size. Bones/joints: Again noted old bilateral rib fractures. No acute osseous finding. IMPRESSION: Patchy right greater than left perihilar and mid to lower lung field opacities. Correlate clinically for atelectasis versus infection versus edema. Lab Data Lab results reviewed: Yes I reviewed the patient's lab results. Labs: Laboratory Tests Range/Units 11/18/22 11/18/22 11/18/22 22:35 22:35 22:38 WBC (4.4-10.8) 10^3/uL 13.13 H RBC (3.93-5.22) 10^6/uL 4.09 Hgb (11.2-15.7) g/dL 11.5 Hct (36.0-46.0) % 36.3 MCV (80-95) fL 89 MCH (27.0-33.0) pg 28.1 MCHC (32.0-36.0) % 31.7 L RDW (11.7-14.6) % 18.2 H Plt Count (130-400) 10^3/uL 259 MPV (8.0-11.0) fL 9.3 Immature Gran % 1.8 Neutrophils % 76.6 Lymphocytes % 17.5 Monocytes % 3.8 Eosinophils % 0.1 Basophils % 0.2 Nucleated RBC % (0.0-0.3) % 0.5 H Absolute Neutrophils (1.2-6.7) 10^3/uL 10.06 H Absolute Lymphocytes (1.2-3.4) 10^3/uL 2.30 Absolute Monocytes (0.1-0.8) 10^3/uL 0.50 Absolute Eosinophils (0.0-0.7) 10^3/uL 0.01 Absolute Basophils (0.0-0.2) 10^3/uL 0.03 Sodium (136-145) mmol/L 137 Potassium (3.5-5.1) mmol/L 4.5 Chloride (98-107) mmol/L 97 L Carbon Dioxide (21.0-32.0) mmol/L 30.8 Anion Gap (3-11) mmol/L 9.2 BUN (7-18) mg/dL 13 Creatinine (0.55-1.02) mg/dL 1.3 H Est GFR (CKD-EPI 2020) (mL/min/1.73m2) 51.04 Glucose (74-106) mg/dL 266 H Calcium (8.5-10.1) mg/dL 8.6 Magnesium (1.8-2.4) mg/dL 1.7 L Total Bilirubin (0.2-1.0) mg/dL 0.3 AST (15-37) U/L 21 ALT (14-59) U/L 24 Alkaline Phosphatase (46-116) U/L 91 Total Protein (6.4-8.2) g/dL 7.1 Albumin (3.4-5.0) g/dL 3.2 L COVID-19 Source Nasopharynx SARS-CoV-2 (PCR) (Negative) Negative Influenza Type A (PCR) (Negative) Negative Influenza Type B (PCR) (Negative) Negative RSV (PCR) (Negative) Negative ECG Data Attestation: I personally reviewed and interpreted this ECG (s) as follows: Interpretation: rate of 107, sinus, normal axis, no stemi. Sign Out Sign Out Data: Sign Out Comment: copd, pneumonia, started on levoquin; if able to wean off O2 can dc home, otherwise will need admission Last updated by Mono Rush MD at 11/18/22 23:54 Discharge Plan Disposition Patient Disposition: Admit to [facility] Condition: Stable Discharge Details Clinical Impression: Acute asthma exacerbation, Multifocal pneumonia Primary Care Provider: BRYCE SMITH ED Provider: Ela Bean Home Meds and New Rx's Prescriptions: No Action lisinopril 20 mg Tablet 20 mg DAILY sertraline [Zoloft] 100 mg Tablet 200 mg PO QAM divalproex [Depakote] 500 mg Tablet,Delayed Release (Dr/Ec) 1,000 mg PO QHS risperidone [Risperdal] 2 mg Tablet 2 mg PO .QHS prazosin 2 mg Capsule 6 mg PO QHS melatonin 10 mg Tablet 10 mg PO QHS lorazepam 0.5 mg tablet 1 tab PO BID PRN PRN (Reason: Anxiety) Label Comments: TAKE ONE TABLET BY MOUTH TWICE A DAY NEEDED FOR ANXIETY Trulicity 3 mg/0.5 mL pen injector 1 device SUBCUT QWEEK Label Comments: INJECT ONCE WEEKLY DIRECTED Dulera 100-5 mcg/actuation HFA aerosol inhaler 2 puff inhalation BID Qty: 8.8 0RF amlodipine [Norvasc] 5 mg tablet 5 mg PO DAILY Qty: 30 0RF ipratropium-albuterol 0.5 mg-3 mg(2.5 mg base)/3 mL Solution For Nebulization 3 ml UPD Q4H PRN PRN (Reason: shortness of breath or wheezing) Qty: 180 0RF Sore Throat (benzocaine-menth) 15-3.6 mg Lozenge 1 yarelis PO Q6H PRN PRNQty: 18 0RF Sore Throat (phenol) 1.4 % Aerosol,[place] 3 spray mucous membrane QID PRN PRNQty: 177 0RF guaifenesin [Mucus Relief ER] 600 mg Tablet Extended Release 12hr 600 mg PO BID PRN PRNQty: 30 0RF prednisone 20 mg Tablet See Rx Instructions .ROUTE .COMPLEX Qty: 6 0RF Rx Instructions: 40 mg PO daily x 2 days, then 20 mg PO daily x 2 days, then stop pantoprazole 40 mg Tablet,Delayed Release (Dr/Ec) 40 mg PO DAILY@0730 Qty: 7 0RF nystatin 100,000 unit/mL suspension 100,000 unit PO TID Qty: 60 0RF Rx Instructions: swish and swallow TID x 5 more days cholecalciferol (vitamin D3) 25 mcg (1,000 unit) tablet 500 units PO DAILY
[2022-11-19] MEDS: Albuterol 2.5 MG/3 ML INH SOLN VIAL 5 MG UPD (00:12)
[2022-11-19] MEDS: MAGNESIUM SULFATE 1 GM/100 ML BAG IVPB (01:39)
[2022-11-19 01:57] LABS: Procalcitonin < 0.1 ng/mL
--- NOTE | 2022-11-19 02:30 | HPE_ITS ---
Date of service: 11/19/22 Time of Service: 02:30 Assessment and Plan Assessment and plan (1) Multifocal pneumonia: Status: Acute Assessment and plan: Continue Levaquin 750 mg orally daily. Attempt to obtain sputum culture. Check urine for strep antigen and Legionella antigen. Check mycoplasma. I reinforced with the patient her need to quit smoking. As long as she continues to smoke she is going to have repeated exacerbations of her chronic lung disease and recurrent infections. (2) Acute exacerbation of COPD with asthma: Assessment and plan: Continue prednisone 60 mg daily along with Levaquin 750 mg orally daily for 5 [address] her on scheduled DuoNeb treatments 4 times daily while awake along with as needed albuterol treatments as needed for acute bronchospasm. Titrate her oxygen to maintain SPO2 greater than or equal to 90% encourage smoking cessation. I will order nicotine patches. (3) Type 2 diabetes mellitus: Status: Chronic Assessment and plan: Sliding scale NovoLog per insulin resistant level along with carbohydrate coverage at a ratio of 1:10. I started her on NPH and a ratio of 0.5units/ 1 mg of prednisone. (4) Tobacco abuse: Status: Chronic Assessment and plan: Transdermal nicotine replacement. (5) Bipolar disorder: Assessment and plan: Continue home medications which would sertraline, risperidone and Depo code. (6) DVT prophylaxis: Status: Acute Assessment and plan: Enoxaparin History of Present Illness History of Present Illness Chief Complaint: Dyspnea Narrative: With history of asthma, tobacco abuse, type 2 diabetes mellitus, hypertension, bipolar disorder, obesity with a BMI of 37.4 kg/m? was been hospitalized at [facility] on 3 prior occasions this year dating back to October 10, 2022. She has been hospitalized for hypoxic respiratory failure secondary to COPD/asthma exacerbation as well as most recently for multifocal pneumonia. Last admission was from 11/05 through 11/08/2022 which she was initially treated with vancomycin as active and azithromycin as well as corticosteroids. She was sent home on a 4-day taper of prednisone and placed on cefpodoxime and azithromycin. Patient continues to smoke a few cigarettes per day. She monitors her oxygen at home and states that today in spite of repeated use of her nebulizer her O2 sat was in the 80s. She was brought into the emergency department via EMS. He denies any fever chills but states she has had some yellowish purulent looking sputum along with some blood-tinged sputum. She was afebrile on arrival. She was tachypneic and tachycardic on arrival with a pulse oximetry 94% on 3 L of oxygen per nasal cannula. Work-up in emergency department included chest x-ray that showed multifocal infiltrates. Patient was started on Levaquin 750 mg orally. Patient was given 10 mg of Decadron IV and given DuoNeb updrafts. Attempts were made to wean her off oxygen but when she failed to be able to be weaned off oxygen hospital service was consulted for hospitalization. Review of Systems All systems reviewed & are unremarkable except as noted in HPI and below Constitutional Constitutional: Reports as per HPI, Denies chills and Denies fever(s) Cardiovascular Cardiovascular: Reports system reviewed and no additional complaints, except as documented, Reports dyspnea and Reports dyspnea on exertion Respiratory Respiratory: Reports as per HPI, Reports change in phlegm color, Reports chest congestion, Reports cough, Reports hemoptysis, Reports excessive phlegm production, Reports dyspnea, Reports dyspnea on exertion and Reports wheezing Allergic/Immunologic Allergic/Immunologic: Reports wheezing PFSH All Active Problems DVT prophylaxis (Acute) Acute respiratory failure (Acute) Vitamin D deficiency (Acute) Pharyngitis (Acute) Thrush (Acute) Type 2 diabetes mellitus (Chronic) Multifocal pneumonia (Acute) COPD exacerbation (Acute) Pneumonia (Acute) Acute bronchitis (Acute) Acute asthma exacerbation (Acute) Tobacco abuse (Chronic) Encounter for medication refill (Acute) Medical History Acute asthma exacerbation Acute exacerbation of COPD with asthma Acute pneumonia ADHD Anxiety Bipolar disorder H/O suicide attempt Hypertension Hypoxia Non-insulin dependent diabetes mellitus Obesity (BMI 30.0-34.9) Surgical History S/P cholecystectomy Status post bilateral salpingectomy Family History Other Adopted Social History Smoking/Tobacco Use Status: Current every day Tobacco Type: cigarettes Smoking risk assessment performed?: Yes Alcohol Intake: never Substance use type: does not use Do you feel safe at home: Yes Do you feel safe in your relationship?: Yes Meds Allergies and Home Medications Allergies Allergy/AdvReac Type Severity Reaction Status Date / Time amoxicillin Allergy Nausea Unverified 11/18/22 22:28 bee pollen Allergy Hives Unverified 11/18/22 22:28 fluoxetine [From Prozac] Allergy Nausea Unverified 11/18/22 22:28 hazelnut Allergy Hives Unverified 11/18/22 22:28 abelox Allergy Hives Uncoded 11/18/22 22:28 Home Medications Medication Instructions Recorded Confirmed Type divalproex 500 mg tablet,delayed 1,000 mg PO QHS 01/18/20 11/18/22 History release (Depakote) lisinopril 20 mg tablet 20 mg DAILY 01/18/20 11/18/22 History melatonin 10 mg tablet 10 mg PO QHS 01/18/20 11/18/22 History prazosin 2 mg capsule 6 mg PO QHS 01/18/20 11/18/22 History risperidone 2 mg tablet (Risperdal) 2 mg PO .QHS 01/18/20 11/18/22 History sertraline 100 mg tablet (Zoloft) 200 mg PO QAM 01/18/20 11/18/22 History dulaglutide 3 mg/0.5 mL 1 device subcut QWEEK 10/10/22 11/18/22 History subcutaneous pen injector (Trulicity) lorazepam 0.5 mg tablet 1 tab PO BID PRN PRN Anxiety 10/10/22 11/18/22 History mometasone-formoterol HFA 100 2 puff inhalation BID #8.8 grams 10/13/22 11/18/22 Rx mcg-5 mcg/actuation aerosol inhaler (Dulera) amlodipine 5 mg tablet (Norvasc) 5 mg PO DAILY #30 tabs 10/31/22 11/18/22 Rx benzocaine 15 mg-menthol 3.6 mg 1 yarelis PO Q6H PRN PRN #18 ea 11/08/22 11/18/22 Rx lozenges (Sore Throat (benzocaine with menthol)) guaifenesin 600 mg tablet, 600 mg PO BID PRN PRN #30 tabs 11/08/22 11/18/22 Rx extended release 12 hr (Mucus Relief ER) ipratropium 0.5 mg-albuterol 3 mg 3 ml UPD Q4H PRN PRN shortness of 11/08/22 11/18/22 Rx (2.5 mg base)/3 mL nebulization breath or wheezing #180 mL soln nystatin 100,000 unit/mL oral 100,000 unit PO TID #60 mL 11/08/22 11/18/22 Rx suspension pantoprazole 40 mg tablet,delayed 40 mg PO DAILY@0730 #7 tabs 11/08/22 11/18/22 Rx release phenol 1.4 % mucosal aerosol spray 3 spray mucous membrane QID PRN 11/08/22 11/18/22 Rx (Sore Throat (phenol)) PRN #177 mL prednisone 20 mg tablet See Rx Instructions .Route 11/08/22 11/18/22 Rx .COMPLEX #6 tabs cholecalciferol (vitamin D3) 25 500 units PO DAILY 11/18/22 11/18/22 History mcg (1,000 unit) tablet Exam Narrative Exam Narrative: Middle-aged female who is alert and oriented person place time circumstance able to talk in complete sentences. She does not appear to be in any acute respiratory distress. HEENT is unremarkable Neck is supple no JVD normal carotid pulses no thyromegaly Lungs with diffuse end expiratory wheezes no rhonchi or rales Hearts regular but tachycardic no appreciable murmur rub Abdomen obese soft and nontender with no organomegaly Extremities without peripheral cyanosis or edema Neuro exam grossly intact no focal motor or sensory deficits Results Labs Result diagrams: 11/18/22 22:35 11/18/22 22:35 Labs: Laboratory Results - last 24 hr 11/18/22 11/18/22 11/18/22 22:35 22:35 22:35 WBC 13.13 H RBC 4.09 Hgb 11.5 Hct 36.3 MCV 89 MCH 28.1 MCHC 31.7 L RDW 18.2 H Plt Count 259 MPV 9.3 Immature Gran % 1.8 Neutrophils % 76.6 Lymphocytes % 17.5 Monocytes % 3.8 Eosinophils % 0.1 Basophils % 0.2 Nucleated RBC % 0.5 H Absolute Neutrophils 10.06 H Absolute Lymphocytes 2.30 Absolute Monocytes 0.50 Absolute Eosinophils 0.01 Absolute Basophils 0.03 Sodium 137 Potassium 4.5 Chloride 97 L Carbon Dioxide 30.8 Anion Gap 9.2 BUN 13 Creatinine 1.3 H Est GFR (CKD-EPI 2020) 51.04 Glucose 266 H Calcium 8.6 Magnesium 1.7 L Total Bilirubin 0.3 AST 21 ALT 24 Alkaline Phosphatase 91 Total Protein 7.1 Albumin 3.2 L Procalcitonin < 0.1 COVID-19 Source SARS-CoV-2 (PCR) Influenza Type A (PCR) Influenza Type B (PCR) RSV (PCR) 11/18/22 22:38 WBC RBC Hgb Hct MCV MCH MCHC RDW Plt Count MPV Immature Gran % Neutrophils % Lymphocytes % Monocytes % Eosinophils % Basophils % Nucleated RBC % Absolute Neutrophils Absolute Lymphocytes Absolute Monocytes Absolute Eosinophils Absolute Basophils Sodium Potassium Chloride Carbon Dioxide Anion Gap BUN Creatinine Est GFR (CKD-EPI 2020) Glucose Calcium Magnesium Total Bilirubin AST ALT Alkaline Phosphatase Total Protein Albumin Procalcitonin COVID-19 Source Nasopharynx SARS-CoV-2 (PCR) Negative Influenza Type A (PCR) Negative Influenza Type B (PCR) Negative RSV (PCR) Negative Last Vital Signs Temp 37.1 C 11/18/22 22:23 Pulse 93 H 11/19/22 02:16 Resp 20 11/19/22 02:20 BP 161/78 H 11/19/22 02:16 Pulse Ox 94 11/19/22 02:20
[2022-11-19] MEDS: risperiDONE 1 MG TAB 2 MG PO ×2 (04:33→21:43)
[2022-11-19] MEDS: Prazosin 2 MG CAP 6 MG PO (04:33)
[2022-11-19] MEDS: Sertraline 100 MG TAB 200 MG PO (07:48)
[2022-11-19] MEDS: Cholecalciferol (Vitamin D3) 1,000 UNIT TAB 500 UNITS PO (07:48)
[2022-11-19] MEDS: Pantoprazole 40 MG TABCR PO (07:48)
[2022-11-19] MEDS: predniSONE 20 MG TAB 60 MG PO (07:49)
[2022-11-19] MEDS: amLODIPine 5 MG TAB PO (07:49)
[2022-11-19] MEDS: Lisinopril 20 MG TAB PO (07:49)
[2022-11-19] MEDS: Enoxaparin 40 MG/0.4 ML SYR SC (07:50)
[2022-11-19] MEDS: Nystatin 500000 UNITS/5 ML SUSP 5ML CUP 100000 UNITS PO ×3 (07:50→20:02)
[2022-11-19] MEDS: Normal Saline Flush 10 ML SYR IVP (07:51)
[2022-11-19] MEDS: Insulin NPH-Human 300 UNITS/3 ML PEN 30 UNIT SC (08:43)
[2022-11-19] MEDS: Insulin Aspart 300 UNITS/3 ML PEN SC ×5 (08:45→17:09)
[2022-11-19] MEDS: Budesonide/Formoterol 80/4.5 6.9 GM 60 PUFF INH IH ×2 (08:53→20:02)
[2022-11-19] MEDS: Albuterol/Ipratropium 3 ML UPD VIAL UPD ×4 (08:58→20:02)
[2022-11-19] MEDS: LORazepam 0.5 MG TAB PO ×2 (09:26→18:02)
[2022-11-19] MEDS: Nicotine 21 MG/24 HR PATCH TD (10:46)
--- NOTE | 2022-11-19 10:49 | INITIAL_ITS ---
- If Service Date Differs Date of service: 11/19/22 Time of Service: 10:49 Care Management Initial Assess REASON FOR HOSPITALIZATION:: pneumonia, asthma exacerbation PAST MEDICAL HISTORY/PAST SURGICAL HISTORY:: All Active Problems (Updated 11/06/22 @ 00:04 by Adrián Redding). Thrush (Acute). Type 2 diabetes mellitus (Chronic). Multifocal pneumonia (Acute). COPD exacerbation (Acute). Pneumonia (Acute). Acute bronchitis (Acute). Acute asthma exacerbation (Acute). Tobacco abuse (Chronic). Encounter for medication refill (Acute). Medical History . Acute asthma exacerbation. Acute exacerbation of COPD with asthma. Acute pneumonia. ADHD. Anxiety. Bipolar disorder. H/O suicide attempt. Hypertension. Hypoxia. Non-insulin dependent diabetes mellitus. Obesity (BMI 30.0-34.9). Surgical History . S/P cholecystectomy. Status post bilateral salpingectomy PREVIOUS FUNCTIONAL STATUS/SOCIAL/FAMILY SUPPORTS:: Cecilia lives in [facility] with her Dheeraj. Cecilia does not drive and uses [facility] for transportation. Cecilia shares that she is disabled due to her anxiety and depression. She has therapy through Anast[facility] at [facility] and feels that her symptoms have been stable for quite some time. She is independent at baseline. ADVANCE DIRECTIVES:: None on file. Has patient been provided with info about the portal/API?: Yes Did the patient sign up for the portal?: No INSURANCE COVERAGE / FINANCIAL ISSUES:: [facility]: Medicare Replacement plan. Medicaid CURRENT HOME/COMMUNITY SERVICES/EQUIPMENT:: Services through [facility]. SSDI. [facility] for transportation PRIMARY CARE PHYSICIAN:: Julianna Singh POTENTIAL DISCHARGE NEEDS:: Follow up with PCP and plan of care PATIENT/FAMILY EDUCATION NEEDS:: Review of dicharge instructions, limitations, follow up plan, Ask Me Three ANTICIPATED BARRIERS TO DISCHARGE:: None identified. TRANSPORTATION:: Via private vehicle with [facility] PLAN:: Anticipate, Cecilia will discharge home with no new services when medically ready. She will follow up with her community providers and discharge plan of care as prescribed. Cecilia will transport via [facility] private vehicle. Readmission - Within the Past 30 Days Yes or No: Y - Date of First Admission Date of 1st Admission: 11/05/22 - Date of this Admission Date of Admission: 11/19/22 - Office Visit Since 1st Admission Have you seen your PCP in the office since discharge?: No Date of PCP Appointment: 11/20@0900 Had an appointment Been Scheduled?: Yes Date of Scheduled Appointment: 11/20@0900 - Speicalist Appointments Have you seen any other specialist since your 1st Admission?: No Specialist Seen: [facility] Cardiovascular Invasive Specialist: 12/13/22 - If the patient had a VNA ordered Did the patient have a VNA order?: No - ED visits How many ED visits in the past 12 months: 5 - Assessment for Readmission Summary of readmission circumstances, based upon interviews: Recurrent respiratory illness.
[2022-11-19 12:10] LABS: *AMPHETAMINES SCREEN URINE Negative (Negative); *BARBITURATES SCREEN URINE Negative (Negative); *BENZODIAZEPINES SCREEN URINE Negative (Negative); Cannabinoids THC Positive (Negative); Cocaine Screen,Urine Negative (Negative); METHADONE URINE SCREEN Negative (Negative); OPIATES URINE SCREEN Negative (Negative)
[2022-11-19 12:12] LABS: Tricyclic Antidepressants Negative (Negative)
[2022-11-19] MEDS: Acetaminophen 325 MG TAB PO (14:02)
--- NOTE | 2022-11-19 15:59 | PGE_ITS ---
Date of Service Date of service: 11/19/22 Time of Service: 15:59 Subjective Subjective Interval history since last seen: Cecilia reports blood-tinged sputum. She continues to have some chest discomfort from coughing. Denies dizziness, kym sea. We discussed the importance of quitting smoking. She continues to require 3L of O2 by UT. Continue levofloxacin, prednisone, scheduled, + prn nebs. Symbicort. Objective Last Vital Signs Temp 36.6 C 11/19/22 15:36 Pulse 97 H 11/19/22 15:36 Resp 17 11/19/22 15:36 BP 150/79 H 11/19/22 15:36 Pulse Ox 96 11/19/22 15:36 Laboratory Results - last 24 hr 11/18/22 11/18/22 11/18/22 22:35 22:35 22:35 WBC 13.13 H RBC 4.09 Hgb 11.5 Hct 36.3 MCV 89 MCH 28.1 MCHC 31.7 L RDW 18.2 H Plt Count 259 MPV 9.3 Immature Gran % 1.8 Neutrophils % 76.6 Lymphocytes % 17.5 Monocytes % 3.8 Eosinophils % 0.1 Basophils % 0.2 Nucleated RBC % 0.5 H Absolute Neutrophils 10.06 H Absolute Lymphocytes 2.30 Absolute Monocytes 0.50 Absolute Eosinophils 0.01 Absolute Basophils 0.03 Sodium 137 Potassium 4.5 Chloride 97 L Carbon Dioxide 30.8 Anion Gap 9.2 BUN 13 Creatinine 1.3 H Est GFR (CKD-EPI 2020) 51.04 Glucose 266 H Calcium 8.6 Magnesium 1.7 L Total Bilirubin 0.3 AST 21 ALT 24 Alkaline Phosphatase 91 Total Protein 7.1 Albumin 3.2 L Procalcitonin < 0.1 Urine Opiates Screen Urine Methadone Screen Ur Barbiturates Screen Ur Tricyclics Screen Ur Amphetamines Screen U Benzodiazepines Scrn Urine Cocaine Screen Ur THC Screen COVID-19 Source SARS-CoV-2 (PCR) Influenza Type A (PCR) Influenza Type B (PCR) RSV (PCR) 11/18/22 11/19/22 22:38 11:49 WBC RBC Hgb Hct MCV MCH MCHC RDW Plt Count MPV Immature Gran % Neutrophils % Lymphocytes % Monocytes % Eosinophils % Basophils % Nucleated RBC % Absolute Neutrophils Absolute Lymphocytes Absolute Monocytes Absolute Eosinophils Absolute Basophils Sodium Potassium Chloride Carbon Dioxide Anion Gap BUN Creatinine Est GFR (CKD-EPI 2020) Glucose Calcium Magnesium Total Bilirubin AST ALT Alkaline Phosphatase Total Protein Albumin Procalcitonin Urine Opiates Screen Negative Urine Methadone Screen Negative Ur Barbiturates Screen Negative Ur Tricyclics Screen Negative Ur Amphetamines Screen Negative U Benzodiazepines Scrn Negative Urine Cocaine Screen Negative Ur THC Screen Positive A COVID-19 Source Nasopharynx SARS-CoV-2 (PCR) Negative Influenza Type A (PCR) Negative Influenza Type B (PCR) Negative RSV (PCR) Negative
[2022-11-19] MEDS: levoFLOXacin 500 MG, levoFLOXacin 250 MG 750 MG PO (20:01)
[2022-11-19] MEDS: Benzonatate 200 MG CAP PO (20:01)
[2022-11-19] MEDS: guaiFENesin 600 MG TABCR PO (20:02)
[2022-11-19] MEDS: Prazosin 2 MG CAP PO (21:43)
[2022-11-19] MEDS: Melatonin 3 MG TAB 9 MG PO (21:43)
[2022-11-19] MEDS: Divalproex 500 MG TABEC 1000 MG PO (21:43)
[2022-11-20] VITALS (9 sets, daily range): BP systolic 152–181; BP diastolic 66–98; PULSE 83–110; RESP 4–22; TEMP 36.2–37.2; O2SAT 90–98
[2022-11-20] MEDS: Acetaminophen 325 MG TAB PO (03:52)
[2022-11-20 06:53] LABS: Abs Immature Grans 0.11 10^3/uL (0.0-0.06); HCT 34.6 % (36.0-46.0); HGB 10.9 g/dL (11.2-15.7); MCH 27.5 pg (27.0-33.0); MCHC 31.5 % (32.0-36.0); MCV 87 fL (80-95); MPV 9.1 fL (8.0-11.0); Platelet Count 226 10^3/uL (130-400); RBC 3.96 10^6/uL (3.93-5.22); RDW 18.5 % (11.7-14.6); RDW-SD 56.9 fL; WBC 13.87 10^3/uL (4.4-10.8)
[2022-11-20 07:03] LABS: Anion Gap 6.4 mmol/L (3-11); BUN 12 mg/dL (7-18); CO2 31.6 mmol/L (21.0-32.0); CREATININE 0.9 mg/dL (0.55-1.02); Calcium 8.9 mg/dL (8.5-10.1); Chloride 104 mmol/L (98-107); Estimated GFR 79.35 (mL/min/1.73m2); Glucose 98 mg/dL (74-106); Potassium 3.8 mmol/L (3.5-5.1); Sodium 142 mmol/L (136-145)
[2022-11-20] MEDS: Enoxaparin 40 MG/0.4 ML SYR SC (07:44)
[2022-11-20] MEDS: Insulin NPH-Human 300 UNITS/3 ML PEN 30 UNIT SC (07:45)
[2022-11-20] MEDS: Nicotine 21 MG/24 HR PATCH TD (07:45)
[2022-11-20] MEDS: Nystatin 500000 UNITS/5 ML SUSP 5ML CUP 100000 UNITS PO ×3 (07:46→20:04)
[2022-11-20] MEDS: Pantoprazole 40 MG TABCR PO (07:47)
[2022-11-20] MEDS: Lisinopril 20 MG TAB PO (07:47)
[2022-11-20] MEDS: amLODIPine 5 MG TAB PO (07:47)
[2022-11-20] MEDS: predniSONE 20 MG TAB 60 MG PO (07:47)
[2022-11-20] MEDS: LORazepam 0.5 MG TAB PO ×2 (07:48→20:03)
[2022-11-20] MEDS: Sertraline 100 MG TAB 200 MG PO (07:48)
[2022-11-20] MEDS: Cholecalciferol (Vitamin D3) 1,000 UNIT TAB 500 UNITS PO (07:48)
[2022-11-20] MEDS: Benzonatate 200 MG CAP PO ×3 (07:48→20:01)
[2022-11-20] MEDS: guaiFENesin 600 MG TABCR PO ×2 (07:48→20:02)
[2022-11-20 07:55] LABS: Absolute Lymphocyte Count 5.55 10^3/uL (1.2-3.4); Absolute Monocyte Count 0.55 10^3/uL (0.1-0.8); Absolute Neutrophil Count 7.77 10^3/uL (1.2-6.7); Anisocytosis 1+; Diff Comment Manual Differential
[2022-11-20 07:56] LABS: Polychromasia Present
[2022-11-20] MEDS: Albuterol/Ipratropium 3 ML UPD VIAL UPD ×3 (07:57→19:54)
[2022-11-20] MEDS: Budesonide/Formoterol 80/4.5 6.9 GM 60 PUFF INH IH ×2 (07:58→20:01)
--- NOTE | 2022-11-20 14:58 | PHA.REVIEW2 ---
Pharmacy Admission Review - Admission Clinical Review (Last Reviewed 11/19/22 @ 02:52 by Vitaly Gómez MD) DVT prophylaxis (Acute) Multifocal pneumonia (Acute) Acute asthma exacerbation (Acute) amoxicillin Allergy (Unverified 11/18/22 22:28) Nausea bee pollen Allergy (Unverified 11/18/22 22:28) Hives fluoxetine [From Prozac] Allergy (Unverified 11/18/22 22:28) Nausea hazelnut Allergy (Unverified 11/18/22 22:28) Hives abelox Allergy (Uncoded 11/18/22 22:28) Hives Resuscitation Status Full Code Height 5 ft 1 in Weight 92 kg - Renal Dosing Renal Dosing: BUN 12 mg/dL (7-18) 11/20/22 06:38 Creatinine 0.9 mg/dL (0.55-1.02) 11/20/22 06:38 Medications needing adjustments: Reviewed List of meds needing interventions: eCrCl 79 ml/min - Anticoagulation Anticoagulation: Hgb 10.9 g/dL (11.2-15.7) L 11/20/22 06:38 Hct 34.6 % (36.0-46.0) L 11/20/22 06:38 Plt Count 226 10^3/uL (130-400) 11/20/22 06:38 Creatinine 0.9 mg/dL (0.55-1.02) 11/20/22 06:38 DVT Prophylaxis: Reviewed Medications: Enoxaparin - Opiate Usage Evaluate Pain Scale/Pains Meds: N/A - Relevant Labs Sodium 142 mmol/L (136-145) 11/20/22 06:38 Potassium 3.8 mmol/L (3.5-5.1) 11/20/22 06:38 Chloride 104 mmol/L (98-107) 11/20/22 06:38 Magnesium 2.0 mg/dL (1.8-2.4) 11/20/22 06:38 Electrolytes, C-Reactive P, ESR: Reviewed - DM Control DM Control: Glucose 98 mg/dL (74-106) 11/20/22 06:38 Finger Stick Blood Glucose 102 Finger Stick Blood Glucose 102 Finger Stick Blood Glucose 102 Finger Stick Blood Glucose 67 Finger Stick Blood Glucose 67 Finger Stick Blood Glucose 97 Finger Stick Blood Glucose 97 Finger Stick Blood Glucose 97 Finger Stick Blood Glucose 97 Finger Stick Blood Glucose 97 DM Control: Reviewed (SSI/carb coverage plus NPH daily) Insulin Dosing, Diabetic Medication: SSI/carb coverage plus 30U NPH (d/t oral steroid) - Cardiac Review BP, HR, EF%: Reviewed - Qtc Review QTc: Reviewed If Elevated, List meds needing intervention: QTc 442 on admission - IV to PO Switch IV Medications: Reviewed - Home Meds Home Med List reviewed: Intervened Relevent Home Meds Not ordered & why?: seems to be a few discrepancies at first glance, will consult telepharmacy to do a full Med Rec with patient - Current meds Current Medication Order Review: Reviewed (Levaquin 750mg PO daily)
[2022-11-20] MEDS: Albuterol 2.5 MG/3 ML INH SOLN VIAL UPD (15:32)
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
[2022-11-20] MEDS: Insulin Aspart 300 UNITS/3 ML PEN SC ×2 (16:35→17:22)
--- NOTE | 2022-11-20 17:32 | TELEP.MEDR_ITS ---
Date of service: 11/20/22 Time of Service: 17:45 Telepharmacy Home Med Rec Allergies Allergies: amoxicillin Allergy (Unverified 11/18/22 22:28) Nausea bee pollen Allergy (Unverified 11/18/22 22:28) Hives fluoxetine [From Prozac] Allergy (Unverified 11/18/22 22:28) Nausea hazelnut Allergy (Unverified 11/18/22 22:28) Hives abelox Allergy (Uncoded 11/18/22 22:28) Hives Interview Person Interviewed: * Patient Quality Quality of Interview/Accuracy of Medication List: Good Sources Sources used to compile medication list: [employer] Medication List and [employer] Changes made to Home Medication List: ADDITIONS: * Aripiprazole 2 mg daily * Dextroamphetamine-amphetamine 20 mg daily DELETIONS: * Nystatin 100,000 units/mL 5 mL TID * Pantoprazole 40 mg daily CHANGES: * Prazosin 6 mg nightly * Vitamin D 1,000 units daily Additional Notes Additional Notes: * Patient finished azithromycin eariler this month and nystatin prioir to hospitalization * Patient is currently on prednisone taper outpatient, however patient did not know what dose and day in therapy for this so it was left off her medlist * Patient takes Trulicity on Sundays * Patient last took her home regimen on 11/18/22 Recommended Changes Recommended Changes(reason for recommendation): * none Attestation: The home medication list is now updated to the best of my knowledge and is ready to be reconciled by the provider. Please contact the TelePharmacy Medication Reconciliation Pharmacist at for any questions.
--- NOTE | 2022-11-20 17:32 | TELEP.MEDREC ---
Date of service: 11/20/22 Time of Service: 17:45 Telepharmacy Home Med Rec Allergies Allergies: amoxicillin Allergy (Unverified 11/18/22 22:28) Nausea bee pollen Allergy (Unverified 11/18/22 22:28) Hives fluoxetine [From Prozac] Allergy (Unverified 11/18/22 22:28) Nausea hazelnut Allergy (Unverified 11/18/22 22:28) Hives abelox Allergy (Uncoded 11/18/22 22:28) Hives Interview Person Interviewed: Patient Quality Quality of Interview/Accuracy of Medication List: Good Sources Sources used to compile medication list: Friday Medication List and [employer] Changes made to Home Medication List: ADDITIONS: Aripiprazole 2 mg daily Dextroamphetamine-amphetamine 20 mg daily DELETIONS: Nystatin 100,000 units/mL 5 mL TID Pantoprazole 40 mg daily CHANGES: Prazosin 6 mg nightly Vitamin D 1,000 units daily Additional Notes Additional Notes: Patient finished azithromycin eariler this month and nystatin prioir to hospitalization Patient is currently on prednisone taper outpatient, however patient did not know what dose and day in therapy for this so it was left off her medlist Patient takes Trulicity on Sundays Patient last took her home regimen on 11/18/22 Recommended Changes Recommended Changes(reason for recommendation): none Attestation: The home medication list is now updated to the best of my knowledge and is ready to be reconciled by the provider. Please contact the TelePharmacy Medication Reconciliation Pharmacist at for any questions.
--- NOTE | 2022-11-20 18:58 | W.PM.PROGNOT ---
Date of Service Date of service: 11/20/22 Time of Service: 17:00 Assessment and Plan Assessment and plan (1) Multifocal pneumonia: Status: Acute Assessment and plan: Continue levofloxacin. Await sputum for mycoplasma, urine strep and legionella antigens. (2) Acute exacerbation of COPD with asthma: Assessment and plan: Continue prednisone, scheduled + prn nebs, symbicort, abx. Needs to f/u with pulmonology. Tobacco cessation encouraged. (3) Type 2 diabetes mellitus: Status: Chronic Assessment and plan: Continue basal bolus insulin and NPH to account for steroid-induced hyperglycemia. (4) Tobacco abuse: Status: Chronic Assessment and plan: Transdermal nicotine replacement. (5) Bipolar disorder: Assessment and plan: Continue home meds. (6) DVT prophylaxis: Status: Acute Assessment and plan: SC Enoxaparin (7) Discharge planning issues: Status: Acute Assessment and plan: Full code Anticipate discharge home tomorrow Subjective Subjective Interval history since last seen: Cecilia feels better. She is off of oxygen. She notes that she had an episode of perioral numbness. She states that she was, in fact, anxious when she noticed this sensation. Denies dizziness, chest pain, shortness of breath is better, denies nausea. Cough is better. Exam Narrative Exam Narrative: General: Pleasant middle-aged female, A&Ox3, on RA, no dyspnea/tachypnea HEENT: EOMI, MMM Heart: RRR, no m/r/g Lungs: scattered expiratory wheezes B Abdomen: soft, nontender, nondistended Extremities: no edema BLEs Objective Last Vital Signs Temp 36.9 C 11/20/22 15:23 Pulse 83 11/20/22 15:23 Resp 17 11/20/22 15:23 BP 170/89 H 11/20/22 15:23 Pulse Ox 93 11/20/22 15:23 Laboratory Results - last 24 hr 11/20/22 11/20/22 06:38 06:38 WBC 13.87 H RBC 3.96 Hgb 10.9 L Hct 34.6 L MCV 87 MCH 27.5 MCHC 31.5 L RDW 18.5 H Plt Count 226 MPV 9.1 Immature Gran % 0.0 Neutrophils % 56.0 Lymphocytes % 40.0 Monocytes % 4.0 Eosinophils % 0.0 Basophils % 0.0 Nucleated RBC % 0.0 Absolute Neutrophils 7.77 H Absolute Lymphocytes 5.55 H Absolute Monocytes 0.55 Absolute Eosinophils 0.00 Absolute Basophils 0.00 Polychromasia Present Anisocytosis 1+ Sodium 142 Potassium 3.8 Chloride 104 Carbon Dioxide 31.6 Anion Gap 6.4 BUN 12 Creatinine 0.9 Est GFR (CKD-EPI 2020) 79.35 Glucose 98 Calcium 8.9 Magnesium 2.0
[2022-11-20 19:16] LABS: Legionella Ag Detection Urine Negative (Negative)
[2022-11-20] MEDS: Divalproex 500 MG TABEC 1000 MG PO (20:02)
[2022-11-20] MEDS: Melatonin 3 MG TAB 9 MG PO (20:03)
[2022-11-20] MEDS: levoFLOXacin 500 MG, levoFLOXacin 250 MG 750 MG PO (20:03)
[2022-11-20] MEDS: Prazosin 2 MG CAP PO (20:07)
[2022-11-20] MEDS: risperiDONE 1 MG TAB 2 MG PO (20:08)
--- NOTE | 2022-11-20 20:31 | NUR.NOTE ---
Nursing Note: Pt crying per LAMINATION TECHNICIAN. went into pt's room pt stated, i get sad a lot . Pt denies any suicidal ideation, requested ativan which was given. stated she believed in God and stated it was ok to pray with her. I held her hand and prayed with her that God would help her to feel better and help her to deal with the issues that she can change in her life and help her to except things that she has no control over to change. to also help her get a good evening sleep. clustered care done this evening and the LAMINATION TECHNICIAN verbalized understanding not to do VS until 12mn to give the patient at least 3 1/2-4 hours rest time. Pt stated she feels better already and was very grateful and thankful. She verbalized understanding that I, Oriana, her RN kenneth am here for her and her needs and to press the call killian if she needs me in between meds , etc. She smiled and said ok and Thank you. ---Oriana George RN Contractor
[2022-11-21] VITALS (10 sets, daily range): BP systolic 107–168; BP diastolic 61–96; PULSE 77–103; RESP 8–20; TEMP 36.5–37; O2SAT 89–95
[2022-11-21] MEDS: Budesonide/Formoterol 80/4.5 6.9 GM 60 PUFF INH IH (07:43)
[2022-11-21] MEDS: Albuterol/Ipratropium 3 ML UPD VIAL UPD ×3 (07:43→16:12)
[2022-11-21] MEDS: Nicotine 21 MG/24 HR PATCH TD (08:40)
[2022-11-21] MEDS: Enoxaparin 40 MG/0.4 ML SYR SC (08:41)
[2022-11-21] MEDS: Nystatin 500000 UNITS/5 ML SUSP 5ML CUP 100000 UNITS PO ×2 (08:41→15:29)
[2022-11-21] MEDS: Cholecalciferol (Vitamin D3) 1,000 UNIT TAB 500 UNITS PO (08:41)
[2022-11-21] MEDS: amLODIPine 5 MG TAB PO (08:42)
[2022-11-21] MEDS: Sertraline 100 MG TAB 200 MG PO (08:42)
[2022-11-21] MEDS: Lisinopril 20 MG TAB PO (08:42)
[2022-11-21] MEDS: guaiFENesin 600 MG TABCR PO (08:42)
[2022-11-21] MEDS: predniSONE 20 MG TAB 60 MG PO (08:42)
[2022-11-21] MEDS: Pantoprazole 40 MG TABCR PO (08:42)
[2022-11-21] MEDS: Benzonatate 200 MG CAP PO ×2 (08:42→15:29)
[2022-11-21] MEDS: Insulin NPH-Human 300 UNITS/3 ML PEN 30 UNIT SC (08:56)
[2022-11-21] MEDS: Normal Saline Flush 10 ML SYR IVP (08:57)
--- NOTE | 2022-11-21 09:59 | CMPROGNOTE_ITS ---
- If Service Date Differs Date of service: 11/21/22 Time of Service: 09:59 Care Management Progress Note S/O: Cecilia was sitting up on her bed when CM met with her A: 46 year old female admitted to [facility] P: Anticipate Cecilia will return home when ready per MD. She will follow up with community providers and discharge plan of care as prescribed. Cecilia will transport via [facility] private vehicle.
[2022-11-21] MEDS: LORazepam 0.5 MG TAB PO ×2 (10:51→15:29)
[2022-11-21] MEDS: Insulin Aspart 300 UNITS/3 ML PEN SC ×3 (12:22→17:15)
[2022-11-21 16:03] LABS: Streptococcus Pneumoniae Ag, U Negative (Negative)
--- NOTE | 2022-11-21 16:56 | PDOC.CMDIS ---
- If Service Date Differs Date of service: 11/21/22 Time of Service: 16:56 Care Management Discharge Reason for Hospitalization: pneumonia, asthma exacerbation
[2022-11-21] MEDS: levoFLOXacin 500 MG, levoFLOXacin 250 MG 750 MG PO (17:14)
--- NOTE | 2022-11-21 17:49 | DSE_ITS ---
Date of service: 11/21/22 Time of Service: 17:50 DS: Diagnosis Discharge Diagnosis (1) Multifocal pneumonia: Status: Acute Asessment and Plan: 46 yr old female w/ hx of asthma/COPD who has had 3 prior hospitalizations for asthma exacerbations and pneumonia since early September. She continues to smoke several cigarettes per day. She presented to the ED on 11/19/22 w/ complaints of dyspnea and hypoxemia w/ SPO2 in the mid 80's% at home associated w/ increased cough and purulent sputum production that failed to respond to home nebulizers. She recently came off treatment w/ cefpodoxime and prenisone taper. Evaluation in the ER found her to be tachypneic and tachycardic and hypoxemic. She responded to 3 lpm oxygen w/ SPO2 OF 94% but after multiple nebulizer treatments and decadron she was unable to be weaned off oxygen and chest xray demonstrated multifocal infiltrates so she was hospitalized for CAP and asthma exacerbation. She did well and responded to steroids, nebulized bronchodilators and oral Levaquin. On the day of discharge she was feeling markedly better and requested to be disharged home. Ambulatory pulse oximetry demonstrated her SPO2 to be between 90 to 94% w/ brief drop to 88% that recovered during the walk to 91%. She was not tachypneic nor dyspneic w/ her walk and was deemed medically stable for discharge home w/ outpatient treatment. She was sent home on 3 more days of Levaquin 750 mg daily for total of 7 days. She was sent home on prednisone taper beginning at 60 mg daily x 3 days and taper over 12 days. (2) Acute exacerbation of COPD with asthma: (3) Type 2 diabetes mellitus: Status: Chronic (4) Tobacco abuse: Status: Chronic (5) Bipolar disorder: Discharge Plan Disposition Patient Disposition: Home Condition: Improving Discharge Details Reason For Visit: Pneumonia,Asthma Exacerbation Admit Date/Time: 11/19/22 01:45 Admit Provider: Vitaly Gómez Attending Provider: Vitaly Gómez Primary Care Provider: BRYCE SMITH Hospital Course Hospital Course: see above Home Meds and New Rx's Prescriptions: New levofloxacin 750 mg tablet 750 mg PO DAILY 4 Days Qty: 4 0RF prednisone 20 mg tablet See Rx Instructions .ROUTE .COMPLEX Qty: 23 0RF Rx Instructions: 60 mg/d po x 3d, 40 mg/d x 3d, 20 mg/d x 3d, 10/d x 3d nicotine 21-14-7 mg/24 hr patch, TD daily, sequential See Rx Instructions .ROUTE .COMPLEX Qty: 56 0RF Rx Instructions: apply 1-21 mg NICOTINE PATCH daily for 28 days; follow with 1-14 mg PATCH daily for 14 days, then 1-7mg PATCH daily for 14 days Continued prazosin 2 mg capsule 2 mg PO HS Label Comments: TAKE ONE CAPSULE BY MOUTH AT BEDTIME lisinopril 20 mg Tablet 20 mg PO DAILY sertraline [Zoloft] 100 mg Tablet 200 mg PO QAM divalproex [Depakote] 500 mg Tablet,Delayed Release (Dr/Ec) 1,000 mg PO QHS risperidone [Risperdal] 2 mg Tablet 4 mg PO HS melatonin 10 mg Tablet 10 mg PO QHS lorazepam 0.5 mg tablet 1 tab PO BID PRN PRN (Reason: Anxiety) Label Comments: TAKE ONE TABLET BY MOUTH TWICE A DAY NEEDED FOR ANXIETY Trulicity 3 mg/0.5 mL pen injector 1 device SUBCUT QWEEK Label Comments: INJECT ONCE WEEKLY DIRECTED Dulera 100-5 mcg/actuation HFA aerosol inhaler 2 puff inhalation BID Qty: 8.8 0RF amlodipine [Norvasc] 5 mg tablet 5 mg PO DAILY Qty: 30 0RF ipratropium-albuterol 0.5 mg-3 mg(2.5 mg base)/3 mL Solution For Nebulization 3 ml UPD Q4H PRN PRN (Reason: shortness of breath or wheezing) Qty: 180 0RF Sore Throat (benzocaine-menth) 15-3.6 mg Lozenge 1 yarelis PO Q6H PRN PRNQty: 18 0RF Sore Throat (phenol) 1.4 % Aerosol,Emeigh 3 spray mucous membrane QID PRN PRNQty: 177 0RF guaifenesin [Mucus Relief ER] 600 mg Tablet Extended Release 12hr 600 mg PO BID PRN PRNQty: 30 0RF cholecalciferol (vitamin D3) 25 mcg (1,000 unit) tablet 1,000 units PO DAILY ibuprofen 800 mg tablet 800 mg PO BID PRN Label Comments: TAKE ONE TABLET BY MOUTH TWICE A DAY NEEDED aripiprazole 2 mg tablet 2 mg PO DAILY Label Comments: TAKE ONE TABLET BY MOUTH EVERY MORNING Discharge Instructions Instructions: Prednisone (By mouth), Levofloxacin (By mouth), How to Stop Smoking (DC), Cigarette Smoking and Your Health (GEN), Community Acquired Pneumonia (DC) Stand Alone Forms: Nursing Discharge Form Referrals: BRYCE SMITH, [employer] [Primary Care Provider] - (Please call tomorrow to make a follow up appointment.) Activity:: Activity as Tolerated Equipment/Supplies:: No Equipment Needed Diet:: Carb Counting Discharge Orders Discharge Orders: Discharge Order (Routine); Ordered 11/21/22 Ordered By: Vitaly Gómez Other Ambulatory Orders: XR chest 2V PA & lateral (Routine) Timeframe: 2 Weeks Facility: [facility] - Location: DIAGNOSTIC IMAGING DEPT Ordered By: Vitaly Gómez Discharge Data Discharge Date/Time-TO BE ENTERED AT DEPARTURE: 11/21/22 18:05 DS: Summary Time Spent with Patient providing and/or coordinating discharge services: Less than 30 minutes Specific discharge activities: Interview/exam of patient; review of discharge instructions, completion of prescriptions/discharge instructions; discussion w/ nursing and CM; documentation of hospital visit Status at Discharge Functional status at discharge: independent ambulation Overall status at discharge: patient is progressing back to baseline Mental Status: mental status grossly normal Speech and Movement: speech and movement normal Mood: congruent mood Affect: normal affect Exam Narrative Exam Narrative: Cecilia is fully dressed alert and oriented x3 Brado go home. She is not in any respiratory distress able to talk in complete paragraphs. She denies any chest discomfort denies any purulent sputum production. Resting pulse oximetry is 94% ambulatory pulse oximetry she went as low as 88% but quickly recovered during the walk and ran between 98 and 94%. Lungs are clear to auscultation no rhonchi or wheezes Heart regular rate and rhythm Extremities without edema Psych Mental Status: mental status grossly normal Speech and Movement: speech and movement normal Mood: congruent mood Affect: normal affect DS: Data Vitals/I&O Vitals and I&O: Vital Signs Temperature 37.0 C 11/21/22 15:25 Temperature Source Tympanic 11/21/22 15:25 Pulse 90 11/21/22 16:13 Pulse Rhythm Regular 11/21/22 15:42 Pulse 91 H 11/19/22 02:20 Respiratory Rate 18 11/21/22 16:13 Respiratory Effort Non-Labored 11/21/22 15:42 Respiratory Depth Normal 11/21/22 15:42 Respiratory Pattern Normal 11/21/22 15:42 Blood Pressure 107/61 11/21/22 15:25 Blood Pressure Mean 98 11/19/22 02:16 Pulse Oximetry 95 11/21/22 16:13 Oxygen Delivery Method Room Air 11/21/22 16:12 Oxygen Flow Rate 0 11/21/22 16:12 Pain Level 0 11/21/22 11:12 Comment 11/20/22 07:25 Intake & Output 11/20/22 11/21/22 11/21/22 23:59 11:59 23:59 Intake Total 220 / 220 1200 / 1200 Balance 220 / 220 1200 / 1200 Weight 89.3 kg Intake: Oral 220 / 220 1200 / 1200 Other: Urine Appearance Clear Comment pT voids independently. pT stated she used the bathroom. Voiding Methods Toilet Toilet Data Completed and Pending Labs on day of discharge: Labs from last 24 hours 11/20/22 11/20/22 09:55 09:55 Urine Legionella Ag Negative Ur Strep pneumoniae Ag Negative Preliminary micro results at discharge 11/19/22 13:54 Sputum Culture - Preliminary Sputum Normal Angélica 11/19/22 01:25 Blood Culture - Preliminary Blood NO GROWTH 48 HOURS 11/19/22 01:20 Blood Culture - Preliminary Blood NO GROWTH 48 HOURS PFSH All Active Problems (Updated 11/22/22 @ 00:03 by ELLEN LEWIS) Acute respiratory failure (Acute) Vitamin D deficiency (Acute) Pharyngitis (Acute) Thrush (Acute) Type 2 diabetes mellitus (Chronic) Multifocal pneumonia (Acute) COPD exacerbation (Acute) Pneumonia (Acute) Acute bronchitis (Acute) Acute asthma exacerbation (Acute) Tobacco abuse (Chronic) Encounter for medication refill (Acute) Medical History Acute asthma exacerbation Acute exacerbation of COPD with asthma Acute pneumonia ADHD Anxiety Bipolar disorder H/O suicide attempt Hypertension Hypoxia Non-insulin dependent diabetes mellitus Obesity (BMI 30.0-34.9) Surgical History S/P cholecystectomy Status post bilateral salpingectomy Family History Other Adopted Social History Smoking/Tobacco Use Status: Current every day Tobacco Type: cigarettes Smoking risk assessment performed?: Yes Alcohol Intake: never Substance use type: does not use Do you feel safe at home: Yes Do you feel safe in your relationship?: Yes
[2022-11-22 15:34] LABS: Mycoplasma Pneumoniae PCR Negative; Specimen source Sputum
== END 2022-11-21 18:05 | disposition home or self-care (01) | DRG 194 ==
LOC: ER 11-19 02:35 → MS 11-19 02:36
PROVIDERS: Emergency Medicine; Internal Medicine; Admitting Provider Internal Medicine; Emergency Provider Physician Assistant; PCP Nurse Practitioner Family; Visit Provider Internal Medicine
DX: J18.9 Pneumonia, unspecified organism (principal); J44.0 Chronic obstructive pulmonary disease with (acute) lower respiratory infection; J44.1 Chronic obstructive pulmonary disease with (acute) exacerbation; J45.901 Unspecified asthma with (acute) exacerbation; E11.65 Type 2 diabetes mellitus with hyperglycemia; I10 Essential (primary) hypertension; E66.9 Obesity, unspecified; E55.9 Vitamin D deficiency, unspecified; T38.0X5A Adverse effect of glucocorticoids and synthetic analogues, initial encounter; F17.210 Nicotine dependence, cigarettes, uncomplicated; F31.9 Bipolar disorder, unspecified; Z68.37 Body mass index [BMI] 37.0-37.9, adult
CPT/HCPCS: 36415; 80048; 80053; 80307; 84145; 87040; 87449; 87637; 93005; 94618; 94640; 96361; 96365; 96375; 99285; J1650; 71045; 83735; 85025; 87070; 87205; 87581; 87899; 93010; 94668; 99232; 99239; J1100; J3475; J3490; J7512; J7613; J7614; J7620; J7644

== ENCOUNTER 2023-01-03 02:23 | Outpatient (CLI) | payer MEDICARE, MEDICAID, SELFPAY ==
[2023-01-03] MEDS: Albuterol HFA 18 GM 200 PUFF INH IH (10:58)
[2023-01-03] MEDS: Inhaler, Assist Device 1 EACH MC (10:59)
--- NOTE | 2023-01-03 14:09 | W.PFT ---
Date of service: 01/03/23 Time of Service: 10:07 Pulmonary Function Test Result Requesting Provider Ras Indications: Asthma Interpretation Spirometry: There is no airflow limitation. There is no significant bronchodilator response. Lung Volumes: Normal lung volumes. Diffusion Capacity: Normal diffusion Airway Pressure: Increased airways resistance. Impression Increased airways resistance with a borderline bronchodilator response. Findings consistent with asthma. Clinical Correlation therefore is recommended.
== END 2023-01-03 02:24 | disposition home or self-care (01) ==
LOC: RT 02:23
PROVIDERS: PCP Nurse Practitioner Family; Visit Provider Student in an Organized Health Care Education/Training Program
DX: J45.909 Unspecified asthma, uncomplicated (principal); R06.09 Other forms of dyspnea; F17.210 Nicotine dependence, cigarettes, uncomplicated
CPT/HCPCS: 94060; 94726; 94729

== ENCOUNTER 2023-02-09 20:11 | Inpatient (IN) | payer MEDICARE, MEDICAID, SELFPAY ==
[2023-02-09] VITALS (38 sets, daily range): BP systolic 138–183; BP diastolic 76–140; PULSE 90–113; RESP 4–30; TEMP 37.3; O2SAT 82–98
--- NOTE | 2023-02-09 20:00 | RT.EKG_ITS ---
APPROVED REPORT Exam: Resting ECG Reason for Exam: sob Patient Location: E HR:108 bpm ECG Measurements Heart Rate 108 AXIS ID 129 P 54 QRSd 79 QRS 74 QT 343 T 47 QTc 460 Conclusion Sinus tachycardia...rate> 99 Sinus. Normal axis. No STEMI. I have reviewed and interpreted ECG and agree with software generated interpretation.
--- NOTE | 2023-02-09 20:04 | ED.GENADUL_ITS ---
Discharge Plan Disposition Patient Disposition: Admit to [facility] Discharge Details Clinical Impression: Acute asthma exacerbation Primary Care Provider: BRYCE SMITH ED Provider: Ela Bean Home Meds and New Rx's Prescriptions: No Action albuterol sulfate [Proventil HFA] 90 mcg/actuation HFA aerosol inhaler 2 puff inhalation Q6H PRN (Reason: shortness of breath or wheezing) Qty: 8.5 12RF ipratropium-albuterol 0.5 mg-3 mg(2.5 mg base)/3 mL solution for nebulization 3 ml UPD Q4H PRN PRN (Reason: shortness of breath or wheezing) Qty: 540 12RF Dulera 200-5 mcg/actuation HFA aerosol inhaler 2 puff inhalation BID Qty: 13 12RF Rx Instructions: Rinse mouth after use Spiriva Respimat 2.5 mcg/actuation mist 2 puff inhalation DAILY Qty: 4 12RF varenicline 1 mg tablet 1 mg PO BID Qty: 56 5RF Rx Instructions: Start after other start pack varenicline 0.5 mg (11)- 1 mg (42) tablets,dose pack See Rx Instructions PO PER PKG DIR Qty: 53 0RF Rx Instructions: PO PER PKG DIR (DME) Oxygen Tank See Rx Instructions .Route Qty: 1 0RF Rx Instructions: 2LPM with exertion prazosin 2 mg capsule 2 mg PO HS Patient Comments: TAKE ONE CAPSULE BY MOUTH AT BEDTIME lisinopril 20 mg Tablet 20 mg PO DAILY sertraline [Zoloft] 100 mg Tablet 200 mg PO QAM divalproex [Depakote] 500 mg Tablet,Delayed Release (Dr/Ec) 1,000 mg PO QHS risperidone [Risperdal] 2 mg Tablet 4 mg PO HS melatonin 10 mg Tablet 10 mg PO QHS lorazepam 0.5 mg tablet 1 tab PO BID PRN PRN (Reason: Anxiety) Patient Comments: TAKE ONE TABLET BY MOUTH TWICE A DAY NEEDED FOR ANXIETY Trulicity 3 mg/0.5 mL pen injector 1 device SUBCUT QWEEK Patient Comments: INJECT ONCE WEEKLY DIRECTED amlodipine [Norvasc] 5 mg tablet 5 mg PO DAILY Qty: 30 0RF Sore Throat (phenol) 1.4 % Aerosol,[place] 3 spray mucous membrane QID PRN PRNQty: 177 0RF cholecalciferol (vitamin D3) 25 mcg (1,000 unit) tablet 1,000 units PO DAILY ibuprofen 800 mg tablet 800 mg PO BID PRN Patient Comments: TAKE ONE TABLET BY MOUTH TWICE A DAY NEEDED nicotine 21-14-7 mg/24 hr patch, TD daily, sequential See Rx Instructions .ROUTE .COMPLEX Qty: 56 0RF Rx Instructions: apply 1-21 mg NICOTINE PATCH daily for 28 days; follow with 1-14 mg PATCH daily for 14 days, then 1-7mg PATCH daily for 14 days Medical Decision Making 2019 -- 47-year-old female with a history of obesity, asthma, possible history of COPD considering smoking history, diabetes, anxiety and bipolar disorder presents for shortness of breath and cough for the past few days. Given Solu- Medrol and Magnesium IV and 3 DuoNeb's per EMS and oxygen increased from 79% to 96% on 8 L face mask. Patient speaking in 3-4 word sentences on arrival. Oxygen saturation 86% on room air on arrival quickly placed on facemask and then given 7.5 mg albuterol neb and increased to 95%. She has rhonchi and wheezing throughout. She appears somewhat fatigued and labored but able to answer questions. Will obtain scr eening labs, portable chest x-ray, FLUVID. Oxygen saturation 95% on room air after 7.5 mg neb. Patient is requesting BiPAP and considering her initial work of breathing on arrival, placed on BiPAP at this time. 2129 -- Labs and imaging reviewed. White blood cell count 15. Bicarb 37.5. Troponin negative. Chest x-ray no significant change to prior October 2022. Review of records notes that patient has been followed by Dr. Griffith for her diagnosis of asthma and possible history of COPD with recommendation for PFTs. Patient reassessed and is tolerating BiPAP well. She feels better, saturations 91% on 10/28 at 35% FiO2. Will admit for nebs, steroids and continued monitoring for acute asthma exacerbation. FLUVID negative. Case discussed with hospitalist who accepts patient for admission. Medical Records Medical records reviewed: Yes I reviewed the patient's medical records. Imaging Data Radiologic Study: Radiologist's impression: XR Chest Exam date and time: 02/09/2023 8:02 PM Age: 47 years old Clinical indication: Cough and shortness of breath; Patient HX: Cough, SOB, R/O acute disease TECHNIQUE: Imaging protocol: Radiologic exam of the chest. Views: 1 view. COMPARISON: XR PORTABLE CHEST AP 11/18/2022 10:38 PM FINDINGS: Lungs: Unremarkable. No consolidation. Pleural spaces: Unremarkable. No pleural effusion. No pneumothorax. Heart/Mediastinum: Unremarkable. No cardiomegaly. Bones/joints: Unremarkable. IMPRESSION: No acute findings. Lab Data Lab results reviewed: Yes I reviewed the patient's lab results. Labs: Laboratory Tests Range/Units 02/09/23 02/09/23 02/09/23 20:20 20:20 21:34 WBC (4.4-10.8) 10^3/uL 15.33 H RBC (3.93-5.22) 10^6/uL 4.87 Hgb (11.2-15.7) g/dL 11.9 Hct (36.0-46.0) % 40.1 MCV (80-95) fL 82 MCH (27.0-33.0) pg 24.4 L MCHC (32.0-36.0) % 29.7 L RDW (11.7-14.6) % 18.7 H Plt Count (130-400) 10^3/uL 268 MPV (8.0-11.0) fL 9.6 Immature Gran % 1.2 Neutrophils % 71.2 Lymphocytes % 19.0 Monocytes % 8.0 Eosinophils % 0.2 Basophils % 0.4 Nucleated RBC % (0.0-0.3) % 0.3 Absolute Neutrophils (1.2-6.7) 10^3/uL 10.91 H Absolute Lymphocytes (1.2-3.4) 10^3/uL 2.91 Absolute Monocytes (0.1-0.8) 10^3/uL 1.23 H Absolute Eosinophils (0.0-0.7) 10^3/uL 0.03 Absolute Basophils (0.0-0.2) 10^3/uL 0.06 VBG pH (7.31-7.41) VBG pCO2 (41-51) mmHg VBG pO2 mmHg VBG HCO3 (23-28) mmol/L VBG Total CO2 (24-29) mmol/L VBG O2 Saturation % VBG Base Excess (-2-3) mmol/L Sodium (136-145) mmol/L 135 L Potassium (3.5-5.1) mmol/L 4.0 Chloride (98-107) mmol/L 96 L Carbon Dioxide (21.0-32.0) mmol/L 37.5 H Anion Gap (3-11) mmol/L 1.5 L BUN (7-18) mg/dL 12 Creatinine (0.55-1.02) mg/dL 0.8 Est GFR (CKD-EPI 2020) (mL/min/1.73m2) 90.83 Glucose (74-106) mg/dL 271 H Calcium (8.5-10.1) mg/dL 8.7 Magnesium (1.8-2.4) mg/dL 3.0 H Total Bilirubin (0.2-1.0) mg/dL 0.3 AST (15-37) U/L 16 ALT (14-59) U/L 11 L Alkaline Phosphatase (46-116) U/L 107 Troponin I (<or=60) ng/L < 50 Total Protein (6.4-8.2) g/dL 7.3 Albumin (3.4-5.0) g/dL 2.3 L COVID-19 Source Nasopharynx SARS-CoV-2 (PCR) (Negative) Negative Influenza Type A (PCR) (Negative) Negative Influenza Type B (PCR) (Negative) Negative RSV (PCR) (Negative) Negative Range/Units 02/09/23 22:50 WBC (4.4-10.8) 10^3/uL RBC (3.93-5.22) 10^6/uL Hgb (11.2-15.7) g/dL Hct (36.0-46.0) % MCV (80-95) fL MCH (27.0-33.0) pg MCHC (32.0-36.0) % RDW (11.7-14.6) % Plt Count (130-400) 10^3/uL MPV (8.0-11.0) fL Immature Gran % Neutrophils % Lymphocytes % Monocytes % Eosinophils % Basophils % Nucleated RBC % (0.0-0.3) % Absolute Neutrophils (1.2-6.7) 10^3/uL Absolute Lymphocytes (1.2-3.4) 10^3/uL Absolute Monocytes (0.1-0.8) 10^3/uL Absolute Eosinophils (0.0-0.7) 10^3/uL Absolute Basophils (0.0-0.2) 10^3/uL VBG pH (7.31-7.41) 7.34 VBG pCO2 (41-51) mmHg 70 H* VBG pO2 mmHg 92 VBG HCO3 (23-28) mmol/L 37 H VBG Total CO2 (24-29) mmol/L 35 H VBG O2 Saturation % 97 VBG Base Excess (-2-3) mmol/L 12 H Sodium (136-145) mmol/L Potassium (3.5-5.1) mmol/L Chloride (98-107) mmol/L Carbon Dioxide (21.0-32.0) mmol/L Anion Gap (3-11) mmol/L BUN (7-18) mg/dL Creatinine (0.55-1.02) mg/dL Est GFR (CKD-EPI 2020) (mL/min/1.73m2) Glucose (74-106) mg/dL Calcium (8.5-10.1) mg/dL Magnesium (1.8-2.4) mg/dL Total Bilirubin (0.2-1.0) mg/dL AST (15-37) U/L ALT (14-59) U/L Alkaline Phosphatase (46-116) U/L Troponin I (<or=60) ng/L Total Protein (6.4-8.2) g/dL Albumin (3.4-5.0) g/dL COVID-19 Source SARS-CoV-2 (PCR) (Negative) Influenza Type A (PCR) (Negative) Influenza Type B (PCR) (Negative) RSV (PCR) (Negative) ECG Data Attestation: I personally reviewed and interpreted this ECG (s) as follows: Interpretation: rate of 108, sinus, normal axis, no stemi. HPI General Mode of arrival: EMS . Date/Time Provider Initiated Documentation: 02/09/23 20:18 . Limitations to Documentation: no limitations . Information obtained by: patient . HPI Narrative: Patient is a 47-year-old female with a history of asthma with possible history of COPD considering her smoking history per pulmonology, obesity, type 2 diabetes, anxiety, bipolar disorder presents for shortness of breath and cough for the past few days. Patient states she has been coughing up green sputum. She denies any known fever. Patient states since her last admission here in October 2022 she has been on 2 L of nasal cannula oxygen all the time. EMS reports that her oxygen was not on on their arrival on scene as patient reports she was eating. Her oxygen saturation on room air was 79%. She was given 3 DuoNebs, 125mg Solu-Medrol and 2 g of magnesium IV and patient states she feels somewhat improved. Her oxygen saturation improved to 96% per EMS just prior to arrival. Patient states she is not vaccinated for COVID. Related Data Home Medications Medication Instructions Recorded Confirmed divalproex 500 mg tablet,delayed 1,000 mg PO QHS 01/18/20 12/13/22 release (Depakote) lisinopril 20 mg tablet 20 mg PO DAILY 01/18/20 12/13/22 melatonin 10 mg tablet 10 mg PO QHS 01/18/20 12/13/22 risperidone 2 mg tablet (Risperdal) 4 mg PO HS 01/18/20 12/13/22 sertraline 100 mg tablet (Zoloft) 200 mg PO QAM 01/18/20 12/13/22 dulaglutide 3 mg/0.5 mL 1 device subcut QWEEK 10/10/22 12/13/22 subcutaneous pen injector (Trulicity) lorazepam 0.5 mg tablet 1 tab PO BID PRN PRN Anxiety 10/10/22 12/13/22 amlodipine 5 mg tablet (Norvasc) 5 mg PO DAILY #30 tabs 10/31/22 12/13/22 phenol 1.4 % mucosal aerosol spray 3 spray mucous membrane QID PRN 11/08/22 12/13/22 (Sore Throat (phenol)) PRN #177 mL cholecalciferol (vitamin D3) 25 1,000 units PO DAILY 11/18/22 12/13/22 mcg (1,000 unit) tablet ibuprofen 800 mg tablet 800 mg PO BID PRN 11/20/22 12/13/22 nicotine See Rx Instructions transdermal 11/21/22 12/13/22 21mg/24hr-14mg/24hr-7mg/24hr daily .COMPLEX #56 patches transderm patches,sequentl prazosin 2 mg capsule 2 mg PO HS 11/21/22 12/13/22 Oxygen #1 ea 12/13/22 12/13/22 albuterol sulfate 90 mcg/actuation 2 puff inhalation Q6H PRN 12/13/22 12/13/22 aerosol inhaler (Proventil HFA) shortness of breath or wheezing #8.5 grams ipratropium 0.5 mg-albuterol 3 mg 3 ml UPD Q4H PRN PRN shortness of 12/13/22 12/13/22 (2.5 mg base)/3 mL nebulization breath or wheezing #540 mL soln mometasone-formoterol HFA 200 2 puff inhalation BID #13 grams 12/13/22 12/13/22 mcg-5 mcg/actuation aerosol inhaler (Dulera) tiotropium bromide 2.5 2 puff inhalation DAILY #4 grams 12/13/22 12/13/22 mcg/actuation mist for inhalation (Spiriva Respimat) varenicline 0.5 mg (11)-1 mg (42) See Rx Instructions PO PER PKG DIR 12/13/22 12/13/22 tablets in a dose pack #53 dose pk varenicline 1 mg tablet 1 mg PO BID #56 tabs 12/13/22 12/13/22 Previous Rx's Medication Instructions Recorded amlodipine 5 mg tablet (Norvasc) 5 mg PO DAILY #30 tabs 10/31/22 phenol 1.4 % mucosal aerosol spray 3 spray mucous membrane QID PRN 11/08/22 (Sore Throat (phenol)) PRN #177 mL nicotine See Rx Instructions transdermal 11/21/22 21mg/24hr-14mg/24hr-7mg/24hr daily .COMPLEX #56 patches transderm patches,sequentl Oxygen #1 ea 12/13/22 albuterol sulfate 90 mcg/actuation 2 puff inhalation Q6H PRN 12/13/22 aerosol inhaler (Proventil HFA) shortness of breath or wheezing #8.5 grams ipratropium 0.5 mg-albuterol 3 mg 3 ml UPD Q4H PRN PRN shortness of 12/13/22 (2.5 mg base)/3 mL nebulization breath or wheezing #540 mL soln mometasone-formoterol HFA 200 2 puff inhalation BID #13 grams 12/13/22 mcg-5 mcg/actuation aerosol inhaler (Dulera) tiotropium bromide 2.5 2 puff inhalation DAILY #4 grams 12/13/22 mcg/actuation mist for inhalation (Spiriva Respimat) varenicline 0.5 mg (11)-1 mg (42) See Rx Instructions PO PER PKG DIR 12/13/22 tablets in a dose pack #53 dose pk varenicline 1 mg tablet 1 mg PO BID #56 tabs 12/13/22 Allergies Allergy/AdvReac Type Severity Reaction Status Date / Time amoxicillin Allergy Nausea Unverified 12/13/22 10:24 bee pollen Allergy Hives Unverified 12/13/22 10:24 fluoxetine [From Prozac] Allergy Nausea Unverified 12/13/22 10:24 hazelnut Allergy Hives Unverified 12/13/22 10:24 abelox Allergy Hives Uncoded 12/13/22 10:24 General Stated Complaint: SOB ZACK: 3 Review of Systems All systems reviewed & are unremarkable except as noted in HPI and below Constitutional Constitutional: Reports as per HPI, Denies chills and Denies fever(s) Eyes Eyes: Denies blurry vision ENT Ears, Nose, Mouth, and Throat: Denies dizziness, Denies sore throat and Denies throat swelling Cardiovascular Cardiovascular: Denies chest pain and Reports dyspnea Respiratory Respiratory: Denies cough and Reports dyspnea Gastrointestinal Gastrointestinal: Denies abdominal pain, Denies diarrhea and Denies vomiting Genitourinary Genitourinary: Denies hematuria and Denies dysuria Musculoskeletal Musculoskeletal: Denies back pain and Denies numbness Integumentary/Breasts Skin/Breast: Denies lesions and Denies rash Neurologic Neurologic: Denies dizziness, Denies localized weakness and Denies numbness Allergic/Immunologic Allergic/Immunologic: Denies throat swelling PFSH All Active Problems (Updated 02/09/23 @ 23:25 by Ela Bean DO) Acute asthma exacerbation (Acute) Respiratory failure with hypoxia (Acute) Nicotine dependence, cigarettes, uncomplicated (Acute) Recurrent pneumonia (Acute) Asthma (Chronic) Vitamin D deficiency (Acute) Pharyngitis (Acute) Thrush (Acute) Type 2 diabetes mellitus (Chronic) Multifocal pneumonia (Acute) Pneumonia (Acute) Acute bronchitis (Acute) Tobacco abuse (Chronic) Encounter for medication refill (Acute) Medical History Acute asthma exacerbation Acute exacerbation of COPD with asthma Acute pneumonia ADHD Anxiety Bipolar disorder COPD exacerbation H/O suicide attempt Hypertension Hypoxia Non-insulin dependent diabetes mellitus Obesity (BMI 30.0-34.9) Surgical History S/P cholecystectomy Status post bilateral salpingectomy Family History Other Adopted Social History Smoking/Tobacco Use Status: Current every day Tobacco Type: cigarettes Smoking risk assessment performed?: Yes Alcohol Intake: never Substance use type: does not use Do you feel safe at home: Yes Do you feel safe in your relationship?: Yes Exam Const General: cooperative, healthy appearing and no acute distress HENMT Head: normal to inspection Face and sinus: normal facial exam Eyes General: appearance normal, both eyes and all related structures Pupils: PERRL EOM: EOM intact bilaterally Neck Neck: normal visual inspection and No submandibular swelling Lymphatic: no lymphadenopathy noted Chest Chest: normal inspection of the chest and no tenderness Resp Effort & Inspection: normal respiratory effort and not able to speak in complete sentences (3-4 word sentences) Auscultation: rhonchi upper bilaterally and lower bilaterally and wheezes expiratory wheezes and inspiratory wheezes Cardio Rate: regular rate Rhythm: regular rhythm GI Inspection: normal to inspection and obesity Palpation: soft, not firm, not rigid and nontender Auscultation: hypoactive bowel sounds Back/Spine/Pelvis Thoracic/Lumbar Spine: thoracic and lumbar spine normal to inspection Pelvis: no pain with anterior-posterior compression Skin General skin exam: no rashes or lesions noted Neuro General: patient alert, patient awake and patient oriented x3 Cognition: normal cognition Speech: speech normal Motor: muscle tone normal throughout Sensory Exam: no sensory deficits noted Extrem General: normal to inspection, full ROM, capillary refill normal, no calf tenderness bilaterally and no edema Psych Appearance: grossly normal Mental Status: mental status grossly normal Speech and Movement: speech and movement normal Affect: normal affect Critical Care Time Critical Care Time Critical Care Time: Yes Total Critical Care Time: 30 Attestation: I spent 30 minutes of critical care time with this patient. This does not include time spent on separately reported billable procedures.
--- NOTE | 2023-02-09 20:15 | DI.RAD_ITS ---
Exam(s) XR PORTABLE CHEST AP EXAM: XR PORTABLE CHEST AP CLINICAL HISTORY: cough, sob, r/o acute disease. TECHNIQUE: 2D digital imaging was performed. COMPARISON: No exams were available for comparison FINDINGS: Single AP portable view. Heart size is upper normal. The mediastinum is not widened. Increased interstitial markings throughout both lungs noted. No pleural effusions. Left 6 rib deformity again noted. Also again noted is healed fracture of the right 6th rib. IMPRESSION: Increased interstitial markings both lung wilkins. No pleural effusions. Recommend nonportable PA an d lateral views when clinically possible or CT scan. DATA REPOSITORY: RADIATION DOSE DELIVERED:
[2023-02-09 20:38] LABS: Abs Immature Grans 0.18 10^3/uL (0.0-0.06); Absolute Basophil Count 0.06 10^3/uL (0.0-0.2); Absolute Eosinophil Count 0.03 10^3/uL (0.0-0.7); Absolute Lymphocyte Count 2.91 10^3/uL (1.2-3.4); Absolute Monocyte Count 1.23 10^3/uL (0.1-0.8); Basophils % 0.4; Eosinophils % 0.2; HCT 40.1 % (36.0-46.0); HGB 11.9 g/dL (11.2-15.7); Immature Grans % 1.2; MCH 24.4 pg (27.0-33.0); MCHC 29.7 % (32.0-36.0); MCV 82 fL (80-95); MPV 9.6 fL (8.0-11.0); Neutrophils % 71.2; Nucleated RBC 0.3 % (0.0-0.3); Platelet Count 268 10^3/uL (130-400); RBC 4.87 10^6/uL (3.93-5.22); RDW 18.7 % (11.7-14.6); RDW-SD 55.6 fL; WBC 15.33 10^3/uL (4.4-10.8)
[2023-02-09 20:39] LABS: Absolute Neutrophil Count 10.91 10^3/uL (1.2-6.7)
[2023-02-09] MEDS: Albuterol 2.5 MG/3 ML INH SOLN VIAL 7.5 MG UPD (20:40)
[2023-02-09] MEDS: Normal Saline 250 ML IV (20:50)
[2023-02-09 20:53] LABS: ALT 11 U/L (14-59); AST 16 U/L (15-37); Albumin 2.3 g/dL (3.4-5.0); Alkaline Phosphatase 107 U/L (46-116); Anion Gap 1.5 mmol/L (3-11); BUN 12 mg/dL (7-18); Bilirubin, Total 0.3 mg/dL (0.2-1.0); CO2 37.5 mmol/L (21.0-32.0); CREATININE 0.8 mg/dL (0.55-1.02); Calcium 8.7 mg/dL (8.5-10.1); Chloride 96 mmol/L (98-107); Estimated GFR 90.83 (mL/min/1.73m2); Glucose 271 mg/dL (74-106); Sodium 135 mmol/L (136-145); Total Protein 7.3 g/dL (6.4-8.2); Troponin I < 50 ng/L (<or=60)
--- NOTE | 2023-02-09 21:12 | DI.VRAD_ITS ---
PROCEDURE INFORMATION: Exam: XR Chest Exam date and time: 02/09/2023 8:02 PM Age: 47 years old Clinical indication: Cough and shortness of breath; Patient HX: Cough, SOB, R/O acute disease TECHNIQUE: Imaging protocol: Radiologic exam of the chest. Views: 1 view. COMPARISON: XR PORTABLE CHEST AP 11/18/2022 10:38 PM FINDINGS: Lungs: Unremarkable. No consolidation. Pleural spaces: Unremarkable. No pleural effusion. No pneumothorax. Heart/Mediastinum: Unremarkable. No cardiomegaly. Bones/joints: Unremarkable. IMPRESSION: No acute findings. Dictated and Authenticated by: Uriah Zarate MD. Ordering:KYM Mahmood MD
[2023-02-09] MEDS: LORazepam 2 MG/ML VIAL 0.5 MG IVP (22:23)
--- NOTE | 2023-02-09 22:37 | W.PM.HP.N ---
Date of service: 02/09/23 Time of Service: 22:38 Assessment and Plan Assessment and plan (1) Asthma: Status: Chronic Assessment and plan: Asthma, in setting of presumed infection. Formal read of CXR pending but I don't see pneumonia so would regard this at this point as URI/ bronchitis. Will continue steroids, updrafts and will place on oral antibiotics. Will also await viral studies and update when available. History of Present Illness History of Present Illness Chief Complaint: cough, SOB Narrative: 47 female with h/o asthma, possible COPD, continues to smoke, unvaccinated -- here with 2 days of cough productive of green sputum, SOB and diarrhea. EMS summoned, report O2 sat 79% on RA. Received updrafts and steroids en route, On arrival O2 sat 86% RA with evident increased work of breathing. Diffuse wheezing noted. Labs of note for WBC 15 (post-steroids) and CXR without acute change (to my read). COVID is pending. Received updrafts and Magnesium, and placed on BiPap. At present time patient states she feels improved and latest recorded O2 sat 93%. Review of Systems Narrative: per HPI PFSH All Active Problems Respiratory failure with hypoxia (Acute) Nicotine dependence, cigarettes, uncomplicated (Acute) Recurrent pneumonia (Acute) Asthma (Chronic) Vitamin D deficiency (Acute) Pharyngitis (Acute) Thrush (Acute) Type 2 diabetes mellitus (Chronic) Multifocal pneumonia (Acute) Pneumonia (Acute) Acute bronchitis (Acute) Tobacco abuse (Chronic) Encounter for medication refill (Acute) Medical History Acute asthma exacerbation Acute exacerbation of COPD with asthma Acute pneumonia ADHD Anxiety Bipolar disorder COPD exacerbation H/O suicide attempt Hypertension Hypoxia Non-insulin dependent diabetes mellitus Obesity (BMI 30.0-34.9) Surgical History S/P cholecystectomy Status post bilateral salpingectomy Family History Other Adopted Social History Smoking/Tobacco Use Status: Current every day Tobacco Type: cigarettes Smoking risk assessment performed?: Yes Alcohol Intake: never Substance use type: does not use Do you feel safe at home: Yes Do you feel safe in your relationship?: Yes Meds Allergies and Home Medications Allergies Allergy/AdvReac Type Severity Reaction Status Date / Time amoxicillin Allergy Nausea Unverified 12/13/22 10:24 bee pollen Allergy Hives Unverified 12/13/22 10:24 fluoxetine [From Prozac] Allergy Nausea Unverified 12/13/22 10:24 hazelnut Allergy Hives Unverified 12/13/22 10:24 abelox Allergy Hives Uncoded 12/13/22 10:24 Home Medications Medication Instructions Recorded Confirmed Type divalproex 500 mg tablet,delayed 1,000 mg PO QHS 01/18/20 12/13/22 History release (Depakote) lisinopril 20 mg tablet 20 mg PO DAILY 01/18/20 12/13/22 History melatonin 10 mg tablet 10 mg PO QHS 01/18/20 12/13/22 History risperidone 2 mg tablet (Risperdal) 4 mg PO HS 01/18/20 12/13/22 History sertraline 100 mg tablet (Zoloft) 200 mg PO QAM 01/18/20 12/13/22 History dulaglutide 3 mg/0.5 mL 1 device subcut QWEEK 10/10/22 12/13/22 History subcutaneous pen injector (Trulicity) lorazepam 0.5 mg tablet 1 tab PO BID PRN PRN Anxiety 10/10/22 12/13/22 History amlodipine 5 mg tablet (Norvasc) 5 mg PO DAILY #30 tabs 10/31/22 12/13/22 Rx phenol 1.4 % mucosal aerosol spray 3 spray mucous membrane QID PRN 11/08/22 12/13/22 Rx (Sore Throat (phenol)) PRN #177 mL cholecalciferol (vitamin D3) 25 1,000 units PO DAILY 11/18/22 12/13/22 History mcg (1,000 unit) tablet ibuprofen 800 mg tablet 800 mg PO BID PRN 11/20/22 12/13/22 History nicotine See Rx Instructions transdermal 11/21/22 12/13/22 Rx 21mg/24hr-14mg/24hr-7mg/24hr daily .COMPLEX #56 patches transderm patches,sequentl prazosin 2 mg capsule 2 mg PO HS 11/21/22 12/13/22 History Oxygen #1 ea 12/13/22 12/13/22 Rx albuterol sulfate 90 mcg/actuation 2 puff inhalation Q6H PRN 12/13/22 12/13/22 Rx aerosol inhaler (Proventil HFA) shortness of breath or wheezing #8.5 grams ipratropium 0.5 mg-albuterol 3 mg 3 ml UPD Q4H PRN PRN shortness of 12/13/22 12/13/22 Rx (2.5 mg base)/3 mL nebulization breath or wheezing #540 mL soln mometasone-formoterol HFA 200 2 puff inhalation BID #13 grams 12/13/22 12/13/22 Rx mcg-5 mcg/actuation aerosol inhaler (Dulera) tiotropium bromide 2.5 2 puff inhalation DAILY #4 grams 12/13/22 12/13/22 Rx mcg/actuation mist for inhalation (Spiriva Respimat) varenicline 0.5 mg (11)-1 mg (42) See Rx Instructions PO PER PKG DIR 12/13/22 12/13/22 Rx tablets in a dose pack #53 dose pk varenicline 1 mg tablet 1 mg PO BID #56 tabs 12/13/22 12/13/22 Rx Exam Narrative Exam Narrative: 138/97, 109, 37.3, 27, 93% (BiPap; during visit sat 96%). HEENT [id number]; neck supple; lungs diffuse wheeze; heart distant, tachy, regular; abdomen soft and NT; extremities w/o edema; neuro Ox3, moves all 4s Results Labs 02/09/23 20:20 02/09/23 20:20 Labs: Laboratory Results - last 24 hr 02/09/23 02/09/23 20:20 20:20 WBC 15.33 H RBC 4.87 Hgb 11.9 Hct 40.1 MCV 82 MCH 24.4 L MCHC 29.7 L RDW 18.7 H Plt Count 268 MPV 9.6 Immature Gran % 1.2 Neutrophils % 71.2 Lymphocytes % 19.0 Monocytes % 8.0 Eosinophils % 0.2 Basophils % 0.4 Nucleated RBC % 0.3 Absolute Neutrophils 10.91 H Absolute Lymphocytes 2.91 Absolute Monocytes 1.23 H Absolute Eosinophils 0.03 Absolute Basophils 0.06 Sodium 135 L Potassium 4.0 Chloride 96 L Carbon Dioxide 37.5 H Anion Gap 1.5 L BUN 12 Creatinine 0.8 Est GFR (CKD-EPI 2020) 90.83 Glucose 271 H Calcium 8.7 Magnesium 3.0 H Total Bilirubin 0.3 AST 16 ALT 11 L Alkaline Phosphatase 107 Troponin I < 50 Total Protein 7.3 Albumin 2.3 L Last Vital Signs Temp 37.3 C 02/09/23 20:18 Pulse 109 H 02/09/23 20:49 Resp 27 H 02/09/23 20:49 BP 138/97 H 02/09/23 20:18 Pulse Ox 93 02/09/23 20:49 Time Spent Time spent with Patient: 40-54 minutes Time was spent: preparing to see the patient(eg.review tests), obtaining and/or reviewing separately otained hiistory, ordering medications,tests, procedures and indepentently interpreting results
[2023-02-09 22:53] LABS: BE (Venous) 12 mmol/L (-2-3); HCO3 (Venous) 37 mmol/L (23-28); O2 Sat (Venous) 97 %; TCO2 (Venous) 35 mmol/L (24-29); pH (Venous) 7.34 (7.31-7.41); pO2 (Venous) 92 mmHg
[2023-02-09 22:56] LABS: pCO2 (Venous) 70 mmHg (41-51)
[2023-02-09 22:56] LABS: COVID-19 PCR Negative (Negative); Influenza A PCR Negative (Negative); Influenza B PCR Negative (Negative); RSV PCR Negative (Negative)
[2023-02-09 22:58] LABS: Source Nasopharynx
[2023-02-10] VITALS (15 sets, daily range): BP systolic 144–180; BP diastolic 77–115; PULSE 91–103; RESP 1–24; TEMP 36.5–37.7; O2SAT 83–98
[2023-02-10] MEDS: Cefuroxime 500 MG TAB PO ×3 (00:43→19:52)
[2023-02-10] MEDS: Albuterol/Ipratropium 3 ML UPD VIAL UPD ×5 (00:44→19:52)
[2023-02-10] MEDS: methylPREDNISolone SUCC 40 MG VIAL IVP ×2 (00:44→08:35)
[2023-02-10] MEDS: Divalproex 125 MG TABEC 1000 MG PO ×2 (04:29→22:04)
[2023-02-10 06:52] LABS: BE (Venous) 11 mmol/L (-2-3); HCO3 (Venous) 36 mmol/L (23-28); O2 Sat (Venous) 98 %; TCO2 (Venous) 33 mmol/L (24-29); pCO2 (Venous) 58 mmHg (41-51); pO2 (Venous) 109 mmHg
[2023-02-10] MEDS: Sertraline 100 MG TAB 200 MG PO (08:35)
[2023-02-10] MEDS: Lisinopril 20 MG TAB PO (08:35)
[2023-02-10] MEDS: amLODIPine 5 MG TAB PO ×2 (08:35→18:00)
[2023-02-10] MEDS: Insulin Aspart 300 UNITS/3 ML PEN SC ×3 (08:36→17:27)
--- NOTE | 2023-02-10 08:54 | W.PM.PROGNOT ---
Date of Service Date of service: 02/10/23 Time of Service: 08:55 Assessment and Plan Assessment and plan (1) Acute asthma exacerbation: Status: Acute Assessment and plan: continue cefuroxime for her pneumonia, continue prednisone 50 mg daily; will need taper; continue scheduled DuoNeb and Symbicort; wean oxygen as tolerated; review of her PFT demonstrates she does not have COPD but has asthma, I am not sure whether the Spiriva is indicated for her asthma but will leave her on this and let Dr. Mcginnis decide. Dr. Mcginnis has been consulted and has ordered further blood work and will follow her in the office. Patient has never had a sleep study which I recommend to the patient. Her hypercapnia is not from COPD but probably combination of ERIK and OHS. (2) Respiratory failure with hypoxia and hypercapnia: Status: Acute Assessment and plan: improving. Patient weaned from BIPAP overnight to NC; continue treatment for asthma exacerbation and pneumonia as above (3) Recurrent pneumonia: Status: Acute Assessment and plan: as above; check her immunization status and update if needed for pneumovax, influenza. Subjective Subjective Interval history since last seen: Patient is breathing better this morning. Still gets dyspneic w/ any activity. She indicated that she had been producing purulent green mucous. No fever or rigors. She had been using her inhalers but w/out effect. Exam Narrative Exam Narrative: Pleasant obese female who is sitting up at her bedside, alert and oriented, not in acute distress Lungs: diffuse expiratory and inspiratory wheezing Heart: regular to slightly tachycardic Abdomen: obese, soft, nontender Extremities; no edema Objective Last Vital Signs Temp 37.7 C H 02/10/23 00:23 Pulse 103 H 02/10/23 00:23 Resp 24 02/10/23 00:23 BP 160/87 H 02/10/23 00:23 Pulse Ox 94 02/10/23 00:23 Laboratory Results - last 24 hr 02/09/23 02/09/23 02/09/23 20:20 20:20 21:34 WBC 15.33 H RBC 4.87 Hgb 11.9 Hct 40.1 MCV 82 MCH 24.4 L MCHC 29.7 L RDW 18.7 H Plt Count 268 MPV 9.6 Immature Gran % 1.2 Neutrophils % 71.2 Lymphocytes % 19.0 Monocytes % 8.0 Eosinophils % 0.2 Basophils % 0.4 Nucleated RBC % 0.3 Absolute Neutrophils 10.91 H Absolute Lymphocytes 2.91 Absolute Monocytes 1.23 H Absolute Eosinophils 0.03 Absolute Basophils 0.06 ABG Sample Site ABG pH ABG pCO2 ABG pO2 ABG HCO3 ABG Total CO2 ABG O2 Saturation ABG Base Excess VBG pH VBG pCO2 VBG pO2 VBG HCO3 VBG Total CO2 VBG O2 Saturation VBG Base Excess Oxygen Liter Flow FiO2 Sodium 135 L Potassium 4.0 Chloride 96 L Carbon Dioxide 37.5 H Anion Gap 1.5 L BUN 12 Creatinine 0.8 Est GFR (CKD-EPI 2020) 90.83 Glucose 271 H Calcium 8.7 Magnesium 3.0 H Total Bilirubin 0.3 AST 16 ALT 11 L Alkaline Phosphatase 107 Troponin I < 50 Total Protein 7.3 Albumin 2.3 L COVID-19 Source Nasopharynx SARS-CoV-2 (PCR) Negative Influenza Type A (PCR) Negative Influenza Type B (PCR) Negative RSV (PCR) Negative 02/09/23 02/09/23 02/10/23 21:39 22:50 06:42 WBC RBC Hgb Hct MCV MCH MCHC RDW Plt Count MPV Immature Gran % Neutrophils % Lymphocytes % Monocytes % Eosinophils % Basophils % Nucleated RBC % Absolute Neutrophils Absolute Lymphocytes Absolute Monocytes Absolute Eosinophils Absolute Basophils ABG Sample Site Cancelled ABG pH Cancelled ABG pCO2 Cancelled ABG pO2 Cancelled ABG HCO3 Cancelled ABG Total CO2 Cancelled ABG O2 Saturation Cancelled ABG Base Excess Cancelled VBG pH 7.34 7.40 VBG pCO2 70 H* 58 H VBG pO2 92 109 VBG HCO3 37 H 36 H VBG Total CO2 35 H 33 H VBG O2 Saturation 97 98 VBG Base Excess 12 H 11 H Oxygen Liter Flow Cancelled FiO2 Cancelled Sodium Potassium Chloride Carbon Dioxide Anion Gap BUN Creatinine Est GFR (CKD-EPI 2020) Glucose Calcium Magnesium Total Bilirubin AST ALT Alkaline Phosphatase Troponin I Total Protein Albumin COVID-19 Source SARS-CoV-2 (PCR) Influenza Type A (PCR) Influenza Type B (PCR) RSV (PCR) Reviewed Pertinent PMH: Yes Time Spent with Patient Time Spent with Patient: 25-34 minutes Time was spent: preparing to see the patient(eg.review tests), obtaining and/or reviewing separately otained hiistory, ordering medications,tests, procedures, referring, communicating with other health nonfarm animal caretaker (discussion w/ Dr. Mcginnis), indepentently interpreting results, counseling the patient and care coordination
--- NOTE | 2023-02-10 09:34 | INITIAL_ITS ---
- If Service Date Differs Date of service: 02/10/23 Time of Service: 09:34 Care Management Initial Assess REASON FOR HOSPITALIZATION:: Asthma, Bronchitis PAST MEDICAL HISTORY/PAST SURGICAL HISTORY:: All Active Problems . Respiratory failure with hypoxia (Acute). Nicotine dependence, cigarettes, uncomplicated (Acute). Recurrent pneumonia (Acute). Asthma (Chronic). Vitamin D deficiency (Acute). Pharyngitis (Acute). Thrush (Acute). Type 2 diabetes mellitus (Chronic). Multifocal pneumonia (Acute). Pneumonia (Acute). Acute bronchitis (Acute). Tobacco abuse (Chronic). Encounter for medication refill (Acute). Medical History . Acute asthma exacerbation. Acute exacerbation of COPD with asthma. Acute pneumonia. ADHD. Anxiety. Bipolar disorder. COPD exacerbation. H/O suicide attempt. Hypertension. Hypoxia. Non-insulin dependent diabetes mellitus. Obesity (BMI 30.0-34.9). Surgical History . S/P cholecystectomy. Status post bilateral salpingectomy PREVIOUS FUNCTIONAL STATUS/SOCIAL/FAMILY SUPPORTS:: Cecilia lives in [facility] with her Dheeraj. Cecilia does not drive and uses [facility] for transportation. Cecilia shares that she is disabled due to her anxiety and depression. She has therapy through [facility] at [facility] and feels that her symptoms have been stable for quite some time. She is independent at baseline. CURRENT FUNCTIONAL STATUS:: Cecilia was sitting up in bed when CM met with her. She is pleasant and easily engages in conversation. She feels a little better today. Cecilia reports that she now has home O2 through [employer], has stable housing and denies any community concerns. ADVANCE DIRECTIVES:: None on file. Has patient been provided with info about the portal/API?: Yes Did the patient sign up for the portal?: No CODE STATUS:: Full Code INSURANCE COVERAGE / FINANCIAL ISSUES:: [place] [email or web address] Medicare Replacement plan. Medicaid CURRENT HOME/COMMUNITY SERVICES/EQUIPMENT:: SSDI. Services through [facility]. [facility] for transportation. Home O2 through [facility] PRIMARY CARE PHYSICIAN:: Julianna Singh POTENTIAL DISCHARGE NEEDS:: Follow up with PCP and plan of care PATIENT/FAMILY EDUCATION NEEDS:: Review of discharge instructions, limitations, follow up plan, Ask Me Three ANTICIPATED BARRIERS TO DISCHARGE:: None identified. TRANSPORTATION:: Via private vehicle with [facility] PLAN:: Anticipate, Cecilia will discharge home with no new services when medically ready. She will follow up with her community providers and discharge plan of care as prescribed. Cecilia will transport via [facility] private vehicle.
[2023-02-10] MEDS: LORazepam 0.5 MG TAB PO (11:19)
--- NOTE | 2023-02-10 12:13 | W.INDIABCONS ---
Date of service: 02/10/23 Time of Service: 12:13 Diabetes Inpatient Consult Reason for Visit: dm2 DESCRIPTION/ASSESSMENT: Cecilia was admitted with acute asthma exacerbation, respiratory failure with hypoxia with hx of obesity, tobacco dependence and DM2. Home DM meds: Trulicity 3 mg q week. Most recent A1C: 7.6% at target. 11 lbs weight gain noted in last 3 months. Following diabetic diet with excellent intake. INTERVENTION: none warranted at this time PLAN: will be available prn Time Spent in Nutritional Counseling and Treatment: 0
--- NOTE | 2023-02-10 15:02 | W.PULMCON ---
General Date Of Service Date of service: 02/10/23 Time of Service: 08:30 Reason for Consult: Asthma Exacerbation Assessment and Plan Assessment and plan (1) Acute asthma exacerbation: Status: Acute (2) Tobacco abuse: Status: Chronic (3) Recurrent pneumonia: Status: Acute (4) Respiratory failure with hypoxia and hypercapnia: Status: Acute Assessment and plan: This is a 47 yo with hypoxic and hypercapnic respiratory failure and an asthma exacerbation. She does not have COPD per her PFT's, but OHS is certainly possible given the hypercapnia. We discussed this and she is open to a sleep study, which I will order. I would also like her to be on her maintenance asthma meds and will change the steroids from methylpred q8h to prednisone 50mg daily and she will be started on a taper. She is on antibiotic coverage for the pneumonia. She has recurrent pneumonia's and I wanted bloodwork for her at our last visit, but she did not have this completed, so I will order it while she is in hospital. If she is not improved by tomorrow with the asthma treatment, I would recommend a CT chest to evaluate her further. Asthma Exacerbation - prednisone 50mg daily for 7 days, 40mg for 4 days, 30mg for 3 days, 20mg for 3 days, 10mg for 3 days, 5mg for 3 days - continue cefuroxime for 5 days - Symbicort 160 while admitted - Dulera 200 once discharged - Spiriva Hypoxic and hypercapnic respiratory failure - sleep studied ordered to be done as outpatient - assess for ERIK/OHS - supplemental O2 for sats >90% - ambulatory pulse ox prior to D/C Recurrent Pneumonia's - continue cefuroxime - will test immunoglobulins and aspergillus antigen History of Present Illness Narrative: This is a 47 yo with asthma who is admitted for an asthma exacerbation as well as hypoxic and hypercapnic respiratory failure. I have seen her as an outpatient and recommended bloodwork and PFT's. She had the blood work completed, but not the blood work. I also increased her Dulera to 200 and started her on SPiriva. As an inpatient she is not on her inhalers, have been receiving Duonebs and 40mg methylpred q8h. She states she is feeling better than when she first came in but is still having some trouble. She is on 2LPM with exertion as an outpatient, but is requiring a significant amount more while admitted, and did require BiPAP for some time due to hypercapnea. That being said, her pH was compensated so I do suspect this is a chronic issue. Review of Systems All systems reviewed & are unremarkable except as noted in HPI and below PFSH All Active Problems (Updated 02/10/23 @ 15:10 by Cynthia Mcginnis MD) Respiratory failure with hypoxia and hypercapnia (Acute) Acute asthma exacerbation (Acute) Respiratory failure with hypoxia (Acute) Nicotine dependence, cigarettes, uncomplicated (Acute) Recurrent pneumonia (Acute) Asthma (Chronic) Vitamin D deficiency (Acute) Pharyngitis (Acute) Thrush (Acute) Type 2 diabetes mellitus (Chronic) Multifocal pneumonia (Acute) Pneumonia (Acute) Acute bronchitis (Acute) Tobacco abuse (Chronic) Encounter for medication refill (Acute) Medical History Acute asthma exacerbation Acute exacerbation of COPD with asthma Acute pneumonia ADHD Anxiety Bipolar disorder COPD exacerbation H/O suicide attempt Hypertension Hypoxia Non-insulin dependent diabetes mellitus Obesity (BMI 30.0-34.9) Surgical History S/P cholecystectomy Status post bilateral salpingectomy Family History Other Adopted Social History Smoking/Tobacco Use Status: Current every day Tobacco Type: cigarettes Smoking risk assessment performed?: Yes Alcohol Intake: never Substance use type: does not use Do you feel safe at home: Yes Do you feel safe in your relationship?: Yes Visit Medication and Allergies Active Medications Generic Name Dose Route Start Last Admin Trade Name Freq PRN Reason Stop Dose Admin Albuterol Sulfate 2.5 mg 02/09/23 22:49 Albuterol 2.5 Mg/3 Ml Inh Soln Vial UPD Q4H PRN PRN Albuterol/Ipratropium 3 ml 02/10/23 00:00 02/10/23 12:53 Albuterol/Ipratropium 3 Ml Upd Vial UPD 3 ml Q6H MITA Administration Amlodipine Besylate 5 mg 02/10/23 08:30 02/10/23 08:35 Amlodipine 5 Mg Tab PO 5 mg DAILY MITA Administration Cefuroxime Axetil 500 mg 02/09/23 22:50 02/10/23 08:35 Cefuroxime 500 Mg Tab PO 500 mg BID MITA Administration Dextrose 0 gm 02/10/23 04:22 Glucose Oral Gel 15 Gm/37.5 Gm Tube PO DIRECTED PRN Dextrose/Water 0 gm 02/10/23 04:22 Dextrose 50%-Water 25 Gm/50 Ml Syr IVP DIRECTED PRN Dimethicone/Zinc Oxide 0 gm 02/09/23 22:49 Ambika Protect Cream 142 Gm Tube TP PRN PRN Divalproex Sodium 1,000 mg 02/10/23 04:30 02/10/23 04:29 Divalproex 125 Mg Tabec PO 1,000 mg HS MITA Administration Sodium Chloride 500 mls @ 0 mls/hr 02/10/23 08:28 Saline 500ml Bag IV PRN PRN As Directed Sodium Chloride 50 mls @ 0 mls/hr 02/10/23 08:28 Saline 50ml Bag IV PRN PRN As Directed Ibuprofen 800 mg 02/10/23 04:11 Ibuprofen 800 Mg Tab PO BID PRN PRN Insulin Aspart 0 - 9 units 02/10/23 08:00 02/10/23 11:49 Insulin Aspart 300 Units/3 Ml Pen SC 3 units 0800,1200,1700 MITA Administration Protocol Lisinopril 20 mg 02/10/23 08:30 02/10/23 08:35 Lisinopril 20 Mg Tab PO 20 mg DAILY MITA Administration Lorazepam 0.5 mg 02/10/23 04:11 02/10/23 11:19 Lorazepam 0.5 Mg Tab PO 0.5 mg BID PRN PRN Administration Anxiety Melatonin 9 mg 02/10/23 22:00 Melatonin 3 Mg Tab PO HS MITA Methylprednisolone Sodium Succinate 40 mg 02/10/23 00:00 02/10/23 08:35 Methylprednisolone Succ 40 Mg Vial IVP 40 mg Q8H MITA Administration Prazosin HCl 2 mg 02/10/23 22:00 Prazosin 2 Mg Cap PO HS MITA Risperidone 4 mg 02/10/23 22:00 Risperidone 1 Mg Tab PO HS MITA Sertraline HCl 200 mg 02/10/23 08:30 02/10/23 08:35 Sertraline 100 Mg Tab PO 200 mg QAM MITA Administration Sodium Chloride 0 ml 02/10/23 08:28 Normal Saline Flush 10 Ml Syr IVP PRN PRN Sodium Chloride 0 ml 02/10/23 08:30 02/10/23 13:16 Normal Saline Flush 10 Ml Syr IVP Not Given BID MITA Allergies amoxicillin Allergy (Unverified 12/13/22 10:24) Nausea bee pollen Allergy (Unverified 12/13/22 10:24) Hives fluoxetine [From Prozac] Allergy (Unverified 12/13/22 10:24) Nausea hazelnut Allergy (Unverified 12/13/22 10:24) Hives abelox Allergy (Uncoded 12/13/22 10:24) Hives Exam Narrative Exam Narrative: Gen: NAD, increased respiratory effort, well-nourished HENT: PERRL Chest: Mild respiratory distress, diffuse expiratory wheezing Heart: regular rate and rhythym, no murmurs, rubs or gallops Abdomen: Non-distended, soft, non tender Extremities: No clubbing, edema, cyanosis, rashes Neuro: AAOx3 , non focal Psych: cooperative, appropriate mental affect Results Last Vital Signs Temp 36.8 C 02/10/23 11:45 Pulse 103 H 02/10/23 13:15 Resp 22 02/10/23 13:15 BP 167/102 H 02/10/23 11:45 Pulse Ox 92 02/10/23 13:15 Labs 02/09/23 20:20 02/09/23 20:20 Labs: Laboratory Results - last 24 hr 02/09/23 02/09/23 02/09/23 20:20 20:20 21:34 WBC 15.33 H RBC 4.87 Hgb 11.9 Hct 40.1 MCV 82 MCH 24.4 L MCHC 29.7 L RDW 18.7 H Plt Count 268 MPV 9.6 Immature Gran % 1.2 Neutrophils % 71.2 Lymphocytes % 19.0 Monocytes % 8.0 Eosinophils % 0.2 Basophils % 0.4 Nucleated RBC % 0.3 Absolute Neutrophils 10.91 H Absolute Lymphocytes 2.91 Absolute Monocytes 1.23 H Absolute Eosinophils 0.03 Absolute Basophils 0.06 ABG Sample Site ABG pH ABG pCO2 ABG pO2 ABG HCO3 ABG Total CO2 ABG O2 Saturation ABG Base Excess VBG pH VBG pCO2 VBG pO2 VBG HCO3 VBG Total CO2 VBG O2 Saturation VBG Base Excess Oxygen Liter Flow FiO2 Sodium 135 L Potassium 4.0 Chloride 96 L Carbon Dioxide 37.5 H Anion Gap 1.5 L BUN 12 Creatinine 0.8 Est GFR (CKD-EPI 2020) 90.83 Glucose 271 H Calcium 8.7 Magnesium 3.0 H Total Bilirubin 0.3 AST 16 ALT 11 L Alkaline Phosphatase 107 Troponin I < 50 Total Protein 7.3 Albumin 2.3 L COVID-19 Source Nasopharynx SARS-CoV-2 (PCR) Negative Influenza Type A (PCR) Negative Influenza Type B (PCR) Negative RSV (PCR) Negative 02/09/23 02/09/23 02/10/23 21:39 22:50 06:42 WBC RBC Hgb Hct MCV MCH MCHC RDW Plt Count MPV Immature Gran % Neutrophils % Lymphocytes % Monocytes % Eosinophils % Basophils % Nucleated RBC % Absolute Neutrophils Absolute Lymphocytes Absolute Monocytes Absolute Eosinophils Absolute Basophils ABG Sample Site Cancelled ABG pH Cancelled ABG pCO2 Cancelled ABG pO2 Cancelled ABG HCO3 Cancelled ABG Total CO2 Cancelled ABG O2 Saturation Cancelled ABG Base Excess Cancelled VBG pH 7.34 7.40 VBG pCO2 70 H* 58 H VBG pO2 92 109 VBG HCO3 37 H 36 H VBG Total CO2 35 H 33 H VBG O2 Saturation 97 98 VBG Base Excess 12 H 11 H Oxygen Liter Flow Cancelled FiO2 Cancelled Sodium Potassium Chloride Carbon Dioxide Anion Gap BUN Creatinine Est GFR (CKD-EPI 2020) Glucose Calcium Magnesium Total Bilirubin AST ALT Alkaline Phosphatase Troponin I Total Protein Albumin COVID-19 Source SARS-CoV-2 (PCR) Influenza Type A (PCR) Influenza Type B (PCR) RSV (PCR)
[2023-02-10] MEDS: Chlorthalidone 25 MG TAB PO (18:00)
[2023-02-10] MEDS: Normal Saline Flush 10 ML SYR IVP (19:52)
[2023-02-10] MEDS: Budesonide/Formoterol 160/4.5 6 GM 60 PUFF INH IH (19:57)
[2023-02-10] MEDS: Melatonin 3 MG TAB 9 MG PO (22:04)
[2023-02-10] MEDS: Prazosin 2 MG CAP PO (22:04)
[2023-02-10] MEDS: risperiDONE 1 MG TAB 4 MG PO (22:05)
[2023-02-10] MEDS: Albuterol 2.5 MG/3 ML INH SOLN VIAL UPD (23:09)
[2023-02-11] VITALS (15 sets, daily range): BP systolic 137–166; BP diastolic 81–91; PULSE 83–100; RESP 1–24; TEMP 35.9–36.9; O2SAT 90–99
--- NOTE | 2023-02-11 | DI.CT_ITS ---
Exam(s) CT CHEST WO EXAM: CT CHEST WO CLINICAL HISTORY: asthma exacerbation with abnormal CXR. TECHNIQUE: Imaging protocol: Axial computed tomography images were obtained and coronal and sagittal reformatted images were created and reviewed. COMPARISON: CT CT CHEST PE CTA from 11/05/2022 CR,XR XR PORTABLE CHEST AP from 02/09/2023 FINDINGS: The examination is limited due to patient motion artifact. Tracheobronchial tree: Patent where visualized. Pulmonary parenchyma: There is a multifocal nodular infiltrate predominantly involving the upper lobe s. There are small focal areas of consolidation in the left lingula, the lateral aspect of the right lower lobe and the right middle lobe. Mediastinum and Nadeen: There are enlarged mediastinal lymph nodes present. The largest is in the AP w indow and measures 1.3 x 2.2 cm. There also appears to be hilar adenopathy. The esophagus is unrema rkable. Thyroid gland: Unremarkable. Pleura: No effusion or pneumothorax. Heart: The heart is not dilated. Mild coronary artery calcification. No pericardial effusion. Aorta: Thoracic aorta non-dilated. Mild atherosclerosis. Upper abdomen: Status post cholecystectomy. Lymph nodes: There is no axillary adenopathy. Soft tissues: Unremarkable. Bones:Within normal limits for the patient's age. IMPRESSION: 1. Multifocal reticular nodular infiltrate predominantly involving the upper lobes. An infectious or inflammatory process should be considered including fungal infection viral infection or allergic asp ergillosis. Small airways disease or hypersensitivity pneumonitis should be considered. Neoplasm ca nnot be excluded. Follow-up is recommended which may include a repeat chest x-ray following treatmen t to document resolution. 2. Small focal areas of consolidation as described above. These may represent areas of atelectasis. 3. Hilar and mediastinal adenopathy which is likely reactive and related to the pulmonary findings. RADIATION DOSE DELIVERED: 791.79mGy.cm Total DLP 791.79mGy.cm Total DLP DATA REPOSITORY: All CT scans at this facility are submitted to the National Radiology Data Registry (NRDR) Dose Index Registry (DIR) with the [employer] (A[employer]). RADIATION OPTIMIZATION: All CT scans at this facility use at least one of these dose optimization te chniques: automated exposure control; mA and/or kV adjustment per patient size (includes targeted exa ms where dose is matched to clinical indication); or iterative reconstruction.
[2023-02-11 06:56] LABS: Anion Gap 0.9 mmol/L (3-11); BUN 15 mg/dL (7-18); CO2 41.1 mmol/L (21.0-32.0); CREATININE 0.7 mg/dL (0.55-1.02); Calcium 9.2 mg/dL (8.5-10.1); Chloride 100 mmol/L (98-107); Estimated GFR 106.62 (mL/min/1.73m2); Glucose 170 mg/dL (74-106); Sodium 142 mmol/L (136-145)
[2023-02-11] MEDS: Tiotropium Bromide-Respimat 10 PUFF INH 2 PUFF IH (08:48)
[2023-02-11] MEDS: Budesonide/Formoterol 160/4.5 6 GM 60 PUFF INH IH ×2 (08:48→19:49)
[2023-02-11] MEDS: Chlorthalidone 25 MG TAB PO (08:57)
[2023-02-11] MEDS: amLODIPine 10 MG TAB PO (08:57)
[2023-02-11] MEDS: predniSONE 40 MG, predniSONE 10 MG 50 MG PO (08:57)
[2023-02-11] MEDS: Cefuroxime 500 MG TAB PO (08:57)
[2023-02-11] MEDS: Sertraline 100 MG TAB 200 MG PO (08:58)
[2023-02-11] MEDS: Lisinopril 20 MG TAB PO (08:58)
[2023-02-11] MEDS: Insulin Aspart 300 UNITS/3 ML PEN SC ×3 (08:59→16:58)
[2023-02-11] MEDS: Normal Saline Flush 10 ML SYR IVP ×2 (09:00→19:48)
--- NOTE | 2023-02-11 09:09 | PDOC.CMPRO ---
- If Service Date Differs Date of service: 02/11/23 Time of Service: 09:09 Care Management Progress Note S/O: Cecilia requires further medical workup and imaging. Pulmonary is consulted. She refuses Bi-pap despite her high O2 requirement. [facility] is following. Per Cecilia, her PCP helped her get home O2 through [place] and she uses 2L @ baseline. She has stable housing and denies any community concerns. CM will continue to follow. A: 47 year old female admitted to [facility] on 02/10/23 for Asthma, Bronchitis P: Anticipate, Cecilia will discharge home with no new services when medically ready. She will follow up with her community providers and discharge plan of care as prescribed. Cecilia will transport via [facility] private vehicle.
[2023-02-11] MEDS: Albuterol/Ipratropium 3 ML UPD VIAL UPD ×4 (09:10→19:49)
--- NOTE | 2023-02-11 09:13 | PGE_ITS ---
Date of Service Date of service: 02/11/23 Time of Service: 08:30 Assessment and Plan Assessment and plan (1) Acute asthma exacerbation: Status: Acute (2) Tobacco abuse: Status: Chronic (3) Recurrent pneumonia: Status: Acute (4) Respiratory failure with hypoxia and hypercapnia: Status: Acute Assessment and plan: 47 year old female admitted for asthma exacerbation with hypoxic and hypercapnic respiratory failure requiring BiPAP and increased supplemental O2. She wears 2LPM at baseline and is requiring higher supplemental O2 during this hospital addmission. Today, she is on 4LPM, she has diffuse expiratory wheezes however, looks comfortable in bed this morning. She reports her throat being sore and coughing up green sputum last night. She states she feels worse today in comparison to yesterday and this started last night. She has a history of recurrent pneumonia's. She was switched from methlyprednisone to a prednisone taper which was started today. This will hopefully start to help her improve. Will order chest CT to be done today for further evaluation. Asthma Exacerbation - started today - prednisone 50mg daily for 7 days, 40mg for 4 days, 30mg for 3 days, 20mg for 3 days, 10mg for 3 days, 5mg for 3 days - continue cefuroxime for 5 days - update CT obtained and reviewed which reveals atypical appearance - start on Doxycycline - Symbicort 160 while admitted - Dulera 200 once discharged - Spiriva Hypoxic and hypercapnic respiratory failure - sleep studied ordered to be done as outpatient - assess for ERIK/OHS - supplemental O2 for sats >90% - (2lpm at home, currently on 4) - ambulatory pulse ox prior to D/C Recurrent Pneumonia's - continue cefuroxime - awaiting results - immunoglobulins and aspergillus antigen Saw patient and agree with assessment above Exam Narrative Exam Narrative: Patient awake and alert sitting upright in bed. Difficultly speaking/hoarse voice - throat discomfort Resp Effort & Inspection: normal respiratory effort and cough Auscultation: wheezes expiratory wheezes, lower bilaterally and upper bilaterally Objective Last Vital Signs Temp 96.6 F L 02/11/23 09:06 Pulse 94 H 02/11/23 09:10 Resp 20 02/11/23 09:06 BP 150/81 H 02/11/23 09:06 Pulse Ox 90 L 02/11/23 09:10 Laboratory Results - last 24 hr 02/11/23 06:30 Sodium 142 Potassium 4.0 Chloride 100 Carbon Dioxide 41.1 H Anion Gap 0.9 L BUN 15 Creatinine 0.7 Est GFR (CKD-EPI 2020) 106.62 Glucose 170 H Calcium 9.2 Time Spent with Patient Time Spent with Patient: 35-49 minutes Time was spent: preparing to see the patient(eg.review tests), obtaining and/or reviewing separately otained hiistory, ordering medications,tests, procedures, referring, communicating with other health hospice spiritual care coordinator, indepentently in terpreting results and counseling the patient
--- NOTE | 2023-02-11 15:51 | W.PM.PROGNOT ---
Date of Service Date of service: 02/11/23 Time of Service: 15:51 Assessment and Plan Assessment and plan (1) Multifocal pneumonia: Status: Acute Assessment and plan: CT chest w/ multifocal reticular nodular infiltrates w/ upppe lobe predominance. I will change her cefuroxime to iv ceftriaxone and add azithromycin for atypical coverage. Aspergillus immunoglobulins are pending. I have also ordered urine for legionella and strep antigens and sputum for mycoplasma PCR. (2) Respiratory failure with hypoxia and hypercapnia: Status: Acute Assessment and plan: continue supportive care. unfortunately Cecilia refuses to wear her BIPAP mask. continue oxygen w/ NC, if she gets into distress then consider HFNC (3) Acute asthma exacerbation: Status: Acute Assessment and plan: continue prednisone 50 mg w/ slow taper per Dr. Mcginnis schedule. She is being evaluated for chronic aspergillus. She may need bronchoscopy when she is more stable from her asthma exacerbation. (4) Type 2 diabetes mellitus: Status: Chronic Assessment and plan: monitor glucose AC/HS, coverage w/ sliding scale insulin Subjective Subjective Interval history since last seen: Coughing up more greenish mucous. No sputum culture has been sent. I have ordered sputum culture and mycoplasma PCR (also will check urine strep antigen). Cecilia is encouraged to use her Acapella and IS. She is still very bronchospasm but not in any acute respiratory distress. She seems depressed however and she is discouraged by the frequency of her exacerbations. Exam Narrative Exam Narrative: Pleasant, obese female who was lying in bed w/ the shades closed and lights off. she was not asleep however. When I opened the shades and engaged with her she seemed tearful Lungs: diffuse expiratory wheezing Heart: RRR She is not using her accessory muscles and is not in any respiratory distress. Objective Last Vital Signs Temp 36.8 C 02/11/23 15:23 Pulse 89 02/11/23 15:23 Resp 16 02/11/23 15:23 BP 160/89 H 02/11/23 15:23 Pulse Ox 95 02/11/23 15:23 Laboratory Results - last 24 hr 02/11/23 06:30 Sodium 142 Potassium 4.0 Chloride 100 Carbon Dioxide 41.1 H Anion Gap 0.9 L BUN 15 Creatinine 0.7 Est GFR (CKD-EPI 2020) 106.62 Glucose 170 H Calcium 9.2 Time Spent with Patient Time Spent with Patient: 25-34 minutes Time was spent: preparing to see the patient(eg.review tests), ordering medications,tests, procedures, indepentently interpreting results, counseling the patient and care coordination
[2023-02-11] MEDS: cefTRIAXone 1 GM/50 ML BAG IVPB (16:58)
[2023-02-11] MEDS: Enoxaparin 40 MG/0.4 ML SYR SC (16:58)
[2023-02-11] MEDS: AZITHROMYCIN 500 MG in Normal Saline 500 ML 166.6 MG IVPB (18:46)
[2023-02-11 20:20] LABS: HCT 39.6 % (36.0-46.0); HGB 11.9 g/dL (11.2-15.7); MCH 24.5 pg (27.0-33.0); MCHC 30.1 % (32.0-36.0); MCV 82 fL (80-95); MPV 8.8 fL (8.0-11.0); Platelet Count 248 10^3/uL (130-400); RBC 4.86 10^6/uL (3.93-5.22); RDW 18.7 % (11.7-14.6); RDW-SD 55.1 fL; WBC 11.31 10^3/uL (4.4-10.8)
[2023-02-11] MEDS: risperiDONE 1 MG TAB 4 MG PO (21:18)
[2023-02-11] MEDS: Prazosin 2 MG CAP PO (21:18)
[2023-02-11] MEDS: Melatonin 3 MG TAB 9 MG PO (21:18)
[2023-02-11] MEDS: Divalproex 500 MG TABEC 1000 MG PO (22:36)
[2023-02-12] VITALS (12 sets, daily range): BP systolic 148–166; BP diastolic 78–91; PULSE 85–112; RESP 1–20; TEMP 36.4–36.9; O2SAT 87–96
[2023-02-12 07:06] LABS: Anion Gap -0.3 mmol/L (3-11); BUN 14 mg/dL (7-18); CO2 42.3 mmol/L (21.0-32.0); CREATININE 0.7 mg/dL (0.55-1.02); Calcium 9.2 mg/dL (8.5-10.1); Chloride 100 mmol/L (98-107); Estimated GFR 106.62 (mL/min/1.73m2); Glucose 132 mg/dL (74-106); Potassium 3.6 mmol/L (3.5-5.1); Sodium 142 mmol/L (136-145)
[2023-02-12] MEDS: Sertraline 100 MG TAB 200 MG PO (08:44)
[2023-02-12] MEDS: Lisinopril 20 MG TAB PO (08:44)
[2023-02-12] MEDS: predniSONE 40 MG, predniSONE 10 MG 50 MG PO (08:44)
[2023-02-12] MEDS: amLODIPine 10 MG TAB PO (08:45)
[2023-02-12] MEDS: Chlorthalidone 25 MG TAB PO (08:45)
[2023-02-12] MEDS: Normal Saline Flush 10 ML SYR IVP (08:46)
[2023-02-12 08:58] LABS: IgE 541 IU/mL (<158)
[2023-02-12] MEDS: LORazepam 0.5 MG TAB PO ×2 (08:59→15:00)
[2023-02-12] MEDS: Albuterol/Ipratropium 3 ML UPD VIAL UPD ×3 (09:48→16:18)
[2023-02-12] MEDS: Budesonide/Formoterol 160/4.5 6 GM 60 PUFF INH IH (09:49)
[2023-02-12] MEDS: Tiotropium Bromide-Respimat 10 PUFF INH 2 PUFF IH (09:49)
--- NOTE | 2023-02-12 10:40 | CHAPLAIN ---
Cecilia was up in chair by the window when I visited. She remembered that we had met during a previous admission and reminded me that she had moved to [place] from from [place]. She talked about some housing concerns and said she is working with [facility] for assistance with that. Cecilia was pleasant and easily engaged in a conversation.
--- NOTE | 2023-02-12 10:47 | PGE_ITS ---
Date of Service Date of service: 02/12/23 Time of Service: 10:48 Assessment and Plan Assessment and plan (1) Multifocal pneumonia: Status: Acute Assessment and plan: CT chest w/ multifocal reticular nodular infiltrates w/ upppe lobe predominance. Continue ceftriaxone and azithromycin. Continue treatment of her asthma with her bronchodilators and steroids. I think she should stay for 1 more day of IV antibiotics and aggressive pulmonary toiletry. Prior to discharge we will get an ambulatory pulse oximetry. Professional time spent interviewing and examining patient, discussion of goals of care with hospital team (care management, nursing and consulting professionals) was 15 minutes. (2) Respiratory failure with hypoxia and hypercapnia: Status: Acute Assessment and plan: continue supportive care. unfortunately Cecilia refuses to wear her BIPAP mask. continue oxygen w/ NC, if she gets into distress then consider HFNC (3) Acute asthma exacerbation: Status: Acute Assessment and plan: continue prednisone 50 mg w/ slow taper per Dr. Mcginnis schedule. She is being evaluated for chronic aspergillus. She may need bronchoscopy when she is more stable from her asthma exacerbation. (4) Type 2 diabetes mellitus: Status: Chronic Assessment and plan: monitor glucose AC/HS, coverage w/ sliding scale insulin Subjective Subjective Interval history since last seen: Cecilia is feeling markedly better today. She still feels little wheezy still requiring supplemental oxygen at 2 L/min. At home she only uses oxygen at night. Cough is becoming less productive. Exam Narrative Exam Narrative: Cecilia is alert oriented to place time circumstance she is fully dressed sitting up in her chair and actually has the window shades open she seems much more perky and alert compared to yesterday. She does not seem depressed actually just. Chest is barrel chested Lungs with some fine diffuse end expiratory wheezes. No rhonchi Heart is regular rate and rhythm Objective Last Vital Signs Temp 36.7 C 02/12/23 08:07 Pulse 98 H 02/12/23 09:49 Resp 18 02/12/23 09:49 BP 155/87 H 02/12/23 08:07 Pulse Ox 95 02/12/23 09:49 Laboratory Results - last 24 hr 02/11/23 02/12/23 20:08 06:10 WBC 11.31 H RBC 4.86 Hgb 11.9 Hct 39.6 MCV 82 MCH 24.5 L MCHC 30.1 L RDW 18.7 H Plt Count 248 MPV 8.8 Sodium 142 Potassium 3.6 Chloride 100 Carbon Dioxide 42.3 H Anion Gap -0.3 L BUN 14 Creatinine 0.7 Est GFR (CKD-EPI 2020) 106.62 Glucose 132 H Calcium 9.2 Time Spent with Patient Time Spent with Patient: <25 minutes Time was spent: preparing to see the patient(eg.review tests), ordering medications,tests, procedures, referring, communicating with other health healthcare interpreter (Ms. Palacio, pulmonary), indepentently interpreting results, counseling the patient and care coordination
[2023-02-12 11:04] LABS: IgA 396 mg/dL (85-499); IgG 1380 mg/dL (610-1616); IgM 171 mg/dL (35-242)
[2023-02-12] MEDS: Insulin Aspart 300 UNITS/3 ML PEN SC ×2 (12:22→17:19)
--- NOTE | 2023-02-12 12:46 | PGE_ITS ---
Date of Service Date of service: 02/12/23 Time of Service: 08:25 Assessment and Plan Assessment and plan (1) Acute asthma exacerbation: Status: Acute (2) Tobacco abuse: Status: Chronic (3) Recurrent pneumonia: Status: Acute (4) Respiratory failure with hypoxia and hypercapnia: Status: Resolved Assessment and plan: 47 year old female admitted for asthma exacerbation with hypoxic and hypercapnic respiratory failure requiring BiPAP and increased supplemental O2. She wears 2LPM at baseline and has required higher supplemental O2 during this hospital admission. She had a CT chest completed yesterday that had an appearance of atypical pneumonia. She was started on IV ceftriaxone and azithromycin. Today, she is feeling much better. She is OOB in the chair and feels well enough to go home. She is no longer wheezing. She continues to wear O2 and is back to 2L. She has not been wearing the BiPAP - does not tolerate the mask. Asthma Exacerbation - Continue prednisone taper - prednisone 50mg daily for 7 days, 40mg for 4 days, 30mg for 3 days, 20mg for 3 days, 10mg for 3 days, 5mg for 3 days - continue IV abx for atypical coverage - Symbicort 160 while admitted - Dulera 200 once discharged - Spiriva Hypoxic and hypercapnic respiratory failure - sleep studied ordered to be done as outpatient - assess for ERIK/OHS - supplemental O2 for sats >90% - (2lpm at home) - ambulatory pulse ox prior to D/C Recurrent Pneumonia's - continue abx - awaiting results - aspergillus antigen - IgE - 541 - if she continues to have exacerbations she may be a candidate for biologics (xolair) but may need allergy testing - will follow up outpatient on this Agree with PA documentation and assessment. - Cynthia Mcginnis MD Exam Resp Effort & Inspection: normal respiratory effort and able to speak in complete sentences Auscultation: no rales, rhonchi right upper and right lower and no wheezes Objective Last Vital Signs Temp 98.4 F 02/12/23 10:58 Pulse 99 H 02/12/23 10:58 Resp 18 02/12/23 10:58 BP 166/91 H 02/12/23 10:58 Pulse Ox 90 L 02/12/23 10:58 Laboratory Results - last 24 hr 02/09/23 02/11/23 02/12/23 20:20 20:08 06:10 WBC 11.31 H RBC 4.86 Hgb 11.9 Hct 39.6 MCV 82 MCH 24.5 L MCHC 30.1 L RDW 18.7 H Plt Count 248 MPV 8.8 Sodium 142 Potassium 3.6 Chloride 100 Carbon Dioxide 42.3 H Anion Gap -0.3 L BUN 14 Creatinine 0.7 Est GFR (CKD-EPI 2020) 106.62 Glucose 132 H Calcium 9.2 IgG 1380 IgA 396 IgM 171 IgE 541 H Time Spent with Patient Time Spent with Patient: 35-49 minutes Time was spent: preparing to see the patient(eg.review tests), obtaining and/or reviewing separately otained hiistory, referring, communicating with other health healthcare receptionist, indepentently interpreting results and counseling the patient
--- NOTE | 2023-02-12 17:26 | RESPIRATORY ---
Pt's new O2 prescription is 1L O2 at rest, 2L O2 with ambulation and sleep. DME: Jimmy.
--- NOTE | 2023-02-12 17:43 | W.PM.DS.N ---
Date of service: 02/12/23 Time of Service: 17:44 DS: Diagnosis Discharge Diagnosis (1) Respiratory failure with hypoxia and hypercapnia: Status: Acute Asessment and Plan: Patient has hx of asthma, obesity, smoker, anxiety disorder and BPD who presented w/ cough of several days duration, worsening dyspnea and wheezing despite use of home nebulizer. On presentation she was only able to speak iin 3 to 4 word sentences, hypoxic SPO2 86% on RA, CXR w/ increased bilateral intersitial markings. FLUVID negative. VBG pCO2 70 , pO2 92 (taken on BIPAP). Treated in the ED w/ DuoNeb treatments, solumedrol and put on BIPAP. Patient admitted for treatment of acute asthma exacerbation and bronchitis/pneumonia. Repeat VBG on 02/10 demonstrated improved gas exchange w/ pCO2 of 58, and pO2 of 109. Subsequent CT chest obtained on 02/11 demonstrated multifocal infiltrates w/ upper lobe predominance but also in the left lingula and RLL and RML. Patient initially was put on oral cefuroxime along w/ iv solumedrol and put on Symbicort (in lieu of her Dulera) and kept on Spiriva. Pulmonary consult was obtained. Cefuroxime was changed to Ceftriaxone and azithromcyin. Patient's solumedrol was changed to prednisone. Patient improved markedly from 02/11 to 02/12. However she was still requiring supplemental oxygen at 2 lpm. I advised the patient to stay one more night to receive additional iv antibiotics and to see if we could wean her off her oxygen. She was adamant about going home on 02/12. Patient was discharged home on prednisone taper (see discharge med list) and an Rx for azithromycin (for more days) and cefpodoxime for 10 days was sent to her pharmacy at [place]. Patient should follow up w/ her PCP next week and follow up w/ Dr. Mcginnis in 2 to 4 weeks. A follow up chest xray should be obtained in 2 weeks to assess for resolution of her infiltrates. Patient is advised to quit smoking. Sputum culture from 02/11/23 came back w/ normal oral danielle. Immunoglobulin panel was ordered by Dr. Mcginnis. IgE came back elevated at 541. IgG, IgA and IgM were normal. IgG subclass was pending. Sputum mycoplasma PCR and urine strep antigen were pending. (2) Recurrent pneumonia: Status: Acute Asessment and Plan: see above (3) Acute asthma exacerbation: Status: Acute Asessment and Plan: see above (4) Tobacco abuse: Status: Chronic Discharge Plan Disposition Patient Disposition: Home Condition: Improving Discharge Details Reason For Visit: Asthma,Bronchitis Admit Date/Time: 02/09/23 22:49 Admit Provider: Adrián Mora Attending Provider: Adrián Mora Primary Care Provider: BRYCE SMITH Hospital Course Hospital Course: see above diagnoses for details of workup and treatment. Also see pulmonology consult notes. Home Meds and New Rx's Prescriptions: New cefpodoxime 200 mg tablet 200 mg PO BID 10 Days Qty: 20 0RF Rx Instructions: must administer with a meal/food prednisone 10 mg tablet 10 mg PO DIRECTED Qty: 72 0RF Rx Instructions: 50 mg/d x 7d, 40 mg/d x 4d, 30 mg/d x 4d, 20 mg/d x 3d, 10 mg/d x 3d, 5 mg/d x 3d azithromycin 250 mg tablet 250 mg PO DAILY 4 Days Qty: 4 0RF Rx Instructions: start on day 2 of therapy Continued albuterol sulfate [Proventil HFA] 90 mcg/actuation HFA aerosol inhaler 2 puff inhalation Q6H PRN (Reason: shortness of breath or wheezing) Qty: 8.5 12RF ipratropium-albuterol 0.5 mg-3 mg(2.5 mg base)/3 mL solution for nebulization 3 ml UPD Q4H PRN PRN (Reason: shortness of breath or wheezing) Qty: 540 12RF Dulera 200-5 mcg/actuation HFA aerosol inhaler 2 puff inhalation BID Qty: 13 12RF Rx Instructions: Rinse mouth after use Spiriva Respimat 2.5 mcg/actuation mist 2 puff inhalation DAILY Qty: 4 12RF varenicline 1 mg tablet 1 mg PO BID Qty: 56 5RF Rx Instructions: Start after other start pack varenicline 0.5 mg (11)- 1 mg (42) tablets,dose pack See Rx Instructions PO PER PKG DIR Qty: 53 0RF Rx Instructions: PO PER PKG DIR prazosin 2 mg capsule 2 mg PO HS Patient Comments: TAKE ONE CAPSULE BY MOUTH AT BEDTIME lisinopril 20 mg Tablet 20 mg PO DAILY sertraline [Zoloft] 100 mg Tablet 200 mg PO QAM divalproex [Depakote] 500 mg Tablet,Delayed Release (Dr/Ec) 1,000 mg PO QHS risperidone [Risperdal] 2 mg Tablet 4 mg PO HS melatonin 10 mg Tablet 10 mg PO QHS lorazepam 0.5 mg tablet 1 tab PO BID PRN PRN (Reason: Anxiety) Patient Comments: TAKE ONE TABLET BY MOUTH TWICE A DAY NEEDED FOR ANXIETY Trulicity 3 mg/0.5 mL pen injector 1 device SUBCUT QWEEK Patient Comments: INJECT ONCE WEEKLY DIRECTED amlodipine [Norvasc] 5 mg tablet 5 mg PO DAILY Qty: 30 0RF Sore Throat (phenol) 1.4 % Aerosol,Sweetser 3 spray mucous membrane QID PRN PRNQty: 177 0RF cholecalciferol (vitamin D3) 25 mcg (1,000 unit) tablet 1,000 units PO DAILY ibuprofen 800 mg tablet 800 mg PO BID PRN Patient Comments: TAKE ONE TABLET BY MOUTH TWICE A DAY NEEDED nicotine 21-14-7 mg/24 hr patch, TD daily, sequential See Rx Instructions .ROUTE .COMPLEX Qty: 56 0RF Rx Instructions: apply 1-21 mg NICOTINE PATCH daily for 28 days; follow with 1-14 mg PATCH daily for 14 days, then 1-7mg PATCH daily for 14 days No Action (DME) Oxygen Tank See Rx Instructions .Route Qty: 1 0RF Rx Instructions: 2LPM with exertion Discharge Instructions Instructions: Azithromycin (By mouth), Cefpodoxime Proxetil (By mouth), Moderate and Severe Persistent Asthma (DC), Bacterial Pneumonia (DC) Additional Instructions: You should get a follow up chest xray in two weeks. Have your PCP or Dr. Mcginnis order this Stand Alone Forms: Nursing Discharge Form Referrals: BRYCE SMITH NP [Primary Care Provider] - 02/25/23 10:30 am Cynthia Mcginnis MD [ [facility] STAFF PHYSICIAN] - (call the office for follow up in 2 to 4 weeks) Activity:: Activity as Tolerated Equipment/Supplies:: No Equipment Needed Diet:: Normal Diet Discharge Orders Discharge Orders: Discharge Order (Routine); Ordered 02/12/23 Ordered By: Vitaly Gómez Discharge Data Discharge Date/Time-TO BE ENTERED AT DEPARTURE: 02/12/23 19:30 DS: Summary Time Spent with Patient providing and/or coordinating discharge services: Greater than 30 minutes Specific discharge activities: Interview/exam of patient; review of discharge instructions, completion of prescriptions/discharge instructions; discussion w/ nursing and CM; documentation of hospital visit Status at Discharge Functional status at discharge: independent ambulation Overall status at discharge: patient is progressing back to baseline Mental Status: mental status grossly normal Speech and Movement: speech and movement normal Mood: irritable mood Affect: normal affect Exam Narrative Exam Narrative: Cecilia is alert oriented to place time circumstance she is fully dressed sitting up in her chair and actually has the window shades open she seems much more perky and alert compared to yesterday. She does not seem depressed actually just. Chest is barrel chested Lungs with some fine diffuse end expiratory wheezes. No rhonchi Heart is regular rate and rhythm Psych Mental Status: mental status grossly normal Speech and Movement: speech and movement normal Mood: irritable mood Affect: normal affect DS: Data Vitals/I&O Vitals and I&O: Vital Signs Temperature 36.9 C 02/12/23 14:46 Temperature Source Tympanic 02/12/23 14:46 Pulse 98 H 02/12/23 16:19 Pulse Rhythm Regular 02/12/23 14:20 Pulse 97 H 02/10/23 00:00 Respiratory Rate 18 02/12/23 16:19 Respiratory Effort Short of Breath 02/12/23 01:23 Respiratory Depth Normal 02/12/23 14:20 Respiratory Pattern Normal 02/12/23 14:20 Blood Pressure 148/78 H 02/12/23 14:46 Blood Pressure Mean 115 02/09/23 23:48 Blood Pressure Position Sitting 02/09/23 20:18 Pulse Oximetry 96 02/12/23 16:19 Oxygen Delivery Method Nasal Cannula 02/12/23 16:18 Oxygen Flow Rate 2 02/12/23 16:18 Fraction of Inspired Oxygen (FIO2) 40 02/11/23 14:13 Pain Level 0 02/11/23 23:24 Comment RN informed of BP 02/11/23 15:23 Intake & Output 02/11/23 02/12/23 02/12/23 23:59 11:59 23:59 Intake Total 790 / 1030 500 / 740 240 / 740 Balance 790 / 1030 500 / 740 240 / 740 Intake: IV 550 / 550 500 / 500 Oral 240 / 480 240 / 240 Other: Urine Appearance Clear Clear Clear Comment pT stated they voided pt stated she voided x1 Voiding Methods Toilet Data Completed and Pending Labs on day of discharge: Labs from last 24 hours 02/12/23 02/11/23 02/11/23 06:10 20:08 19:25 WBC 11.31 H RBC 4.86 Hgb 11.9 Hct 39.6 MCV 82 MCH 24.5 L MCHC 30.1 L RDW 18.7 H Plt Count 248 MPV 8.8 Sodium 142 Potassium 3.6 Chloride 100 Carbon Dioxide 42.3 H Anion Gap -0.3 L BUN 14 Creatinine 0.7 Est GFR (CKD-EPI 2020) 106.62 Glucose 132 H Calcium 9.2 IgG IgA IgM IgE M. pneumoniae Source Pending M. pneumoniae (PCR) Pending 02/09/23 20:20 WBC RBC Hgb Hct MCV MCH MCHC RDW Plt Count MPV Sodium Potassium Chloride Carbon Dioxide Anion Gap BUN Creatinine Est GFR (CKD-EPI 2020) Glucose Calcium IgG 1380 IgA 396 IgM 171 IgE 541 H M. pneumoniae Source M. pneumoniae (PCR) Preliminary micro results at discharge 02/11/23 19:25 Sputum Culture - Preliminary Sputum Normal Danielle PFSH All Active Problems Respiratory failure with hypoxia and hypercapnia (Acute) Acute asthma exacerbation (Acute) Respiratory failure with hypoxia (Acute) Nicotine dependence, cigarettes, uncomplicated (Acute) Recurrent pneumonia (Acute) Asthma (Chronic) Vitamin D deficiency (Acute) Pharyngitis (Acute) Thrush (Acute) Type 2 diabetes mellitus (Chronic) Multifocal pneumonia (Acute) Pneumonia (Acute) Acute bronchitis (Acute) Tobacco abuse (Chronic) Encounter for medication refill (Acute) Medical History Acute asthma exacerbation Acute exacerbation of COPD with asthma Acute pneumonia ADHD Anxiety Bipolar disorder COPD exacerbation H/O suicide attempt Hypertension Hypoxia Non-insulin dependent diabetes mellitus Obesity (BMI 30.0-34.9) Surgical History S/P cholecystectomy Status post bilateral salpingectomy Family History Other Adopted Social History Smoking/Tobacco Use Status: Current every day Tobacco Type: cigarettes Smoking risk assessment performed?: Yes Alcohol Intake: never Substance use type: does not use Do you feel safe at home: Yes Do you feel safe in your relationship?: Yes Time Spent with Patient Time Spent with Patient: <45 minutes Time was spent: preparing to see the patient(eg.review tests), ordering medications,tests, procedures, counseling the patient and care coordination
[2023-02-12 20:41] LABS: Aspergillus Fumigatus IgE <0.35 kU/L
--- NOTE | 2023-02-13 08:21 | CMDISCH_ITS ---
- If Service Date Differs Date of service: 01/23/23 Time of Service: 18:21 LACE Index Scoring Tool - Questions: Length of Stay (in days): 3 Acuity (Admit via E.D.?): Yes Comorbidities: Diabetes w/o Complication, Chronic Pulmonary Disease E.D. Visits: 6 - Answers: Total Score: 13 Risk of Readmission: High Risk Care Management Discharge Reason for Hospitalization: Asthma, Bronchitis Discharge Plan: Cecilia is discharged home via [facility]. She will follow up with community providers and her discharge plan of care as prescribed. New RX's are transmitted to [facility]. She will contact her PCP and Pulmonology to scheduled follow up appointments. Patient/Family Education Needs: Review discharge instructions, limitations, medications and plan to follow up with her PCP and Pulmonology. Discuss ask me three. Services Needed at Discharge: DME Agency (O2 through [employer]), Transportation ([facility])
[2023-02-13 18:39] LABS: Immunoglobulin Subclass IgG4 57.8 mg/dL
[2023-02-14 00:26] LABS: Streptococcus Pneumoniae Ag, U Negative (Negative)
[2023-02-15 07:47] LABS: Mycoplasma Pneumoniae PCR Negative; Specimen source Sputum
== END 2023-02-12 19:30 | disposition home or self-care (01) | DRG 193 ==
LOC: ER 23:30 → MS 02-10 00:19
PROVIDERS: Internal Medicine; Student in an Organized Health Care Education/Training Program; Admitting Provider General Practice; Emergency Provider Physician Assistant; PCP Nurse Practitioner Family; Visit Provider General Practice
DX: J18.9 Pneumonia, unspecified organism (principal); J96.01 Acute respiratory failure with hypoxia; J96.02 Acute respiratory failure with hypercapnia; J45.901 Unspecified asthma with (acute) exacerbation; F17.210 Nicotine dependence, cigarettes, uncomplicated; E55.9 Vitamin D deficiency, unspecified; E66.9 Obesity, unspecified; Z68.38 Body mass index [BMI] 38.0-38.9, adult; I10 Essential (primary) hypertension; F90.9 Attention-deficit hyperactivity disorder, unspecified type; F41.9 Anxiety disorder, unspecified; F31.9 Bipolar disorder, unspecified
CPT/HCPCS: 36415; 71250; 80048; 80053; 82784; 82787; 82805; 85027; 87637; 93005; 94618; 94640; 96361; 96374; 99291; J1650; 71045; 82785; 83735; 84484; 85025; 86003; 87070; 87205; 87581; 87899; 93010; 94660; 94664; 94760; 99222; 99231; 99232; J0456; J0696; J2060; J7512; J7613; J7620

== ENCOUNTER 2023-02-13 17:06 | Outpatient (REF) | payer MEDICARE, MEDICAID, SELFPAY | END 2023-02-13 17:07 | disposition home or self-care (01) | LOC: LBN 17:06 | PROVIDERS: PCP Nurse Practitioner Family; Visit Provider Physician Assistant Medical | DX: L02.91 Cutaneous abscess, unspecified (principal) | CPT/HCPCS: 87070; 87205 ==

== ENCOUNTER 2023-05-02 21:02 | Inpatient (IN) | payer MEDICARE, MEDICAID, SELFPAY ==
[2023-05-02] VITALS (20 sets, daily range): BP systolic 144–167; BP diastolic 71–108; PULSE 77–104; RESP 4–27; TEMP 36–36.8; O2SAT 91–100
--- NOTE | 2023-05-02 21:00 | RT.EKG_ITS ---
APPROVED REPORT Exam: Resting ECG Reason for Exam: shortness of breath Patient Location: E HR:85 bpm ECG Measurements Heart Rate 85 AXIS ND 132 P 56 QRSd 88 QRS 59 QT 379 T 35 QTc 452 Conclusion Sinus rhythm...normal P axis, V-rate 60- 99 Anteroseptal infarct, old...Q >40mS, V1-V2
--- NOTE | 2023-05-02 21:00 | DI.RAD_ITS ---
Exam(s) XR PORTABLE CHEST AP EXAM: XR PORTABLE CHEST AP CLINICAL HISTORY: cough TECHNIQUE: 2D digital imaging was performed of the chest. One image was obtained. An AP view was ob tained. COMPARISON: CR,XR XR PORTABLE CHEST AP from 02/09/2023 FINDINGS: MEDIASTINUM: Normal. HEART: Normal. PULMONARY VASCULATURE: Normal. LUNGS: Clear. PLEURAL SPACE: No pleural effusion or pneumothorax. BONE:Within normal limits for the patient's age. Old healed rib fractures. OTHER FINDINGS:Normal. IMPRESSION: No acute pulmonary findings. DATA REPOSITORY: RADIATION DOSE DELIVERED:
[2023-05-02 21:07] LABS: Source Nasal/Nares
[2023-05-02] MEDS: methylPREDNISolone SUCC 125 MG VIAL IVP (21:11)
[2023-05-02] MEDS: Albuterol/Ipratropium 3 ML UPD VIAL UPD ×2 (21:11→21:55)
--- NOTE | 2023-05-02 21:12 | ED.GENADUL_ITS ---
Discharge Plan Disposition Patient Disposition: Admit to [facility] Condition: Serious Discharge Details Chief Complaint: SOB Clinical Impression: Acute asthma exacerbation, Shortness of breath Primary Care Provider: BRYCE SMITH ED Provider: Uriah Blue Home Meds and New Rx's Prescriptions: No Action albuterol sulfate [Proventil HFA] 90 mcg/actuation HFA aerosol inhaler 2 puff inhalation Q6H PRN (Reason: shortness of breath or wheezing) Qty: 8.5 12RF ipratropium-albuterol 0.5 mg-3 mg(2.5 mg base)/3 mL solution for nebulization 3 ml UPD Q4H PRN PRN (Reason: shortness of breath or wheezing) Qty: 540 12RF Dulera 200-5 mcg/actuation HFA aerosol inhaler 2 puff inhalation BID Qty: 13 12RF Rx Instructions: Rinse mouth after use Spiriva Respimat 2.5 mcg/actuation mist 2 puff inhalation DAILY Qty: 4 12RF varenicline 1 mg tablet 1 mg PO BID Qty: 56 5RF Rx Instructions: Start after other start pack varenicline 0.5 mg (11)- 1 mg (42) tablets,dose pack See Rx Instructions PO PER PKG DIR Qty: 53 0RF Rx Instructions: PO PER PKG DIR (DME) Oxygen Tank See Rx Instructions .Route Qty: 1 0RF Rx Instructions: 2LPM with exertion dextroamphetamine-amphetamine [Adderall] 10 mg tablet 10 mg PO DAILY azithromycin 250 mg tablet See Rx Instructions PO .COMPLEX Qty: 36 0RF Rx Instructions: For 250 mg dose pack: take 500 mg today (day 1), then 250 mg for 4 days (days 2-5) PO prednisone 10 mg tablet 10 mg PO DAILY Qty: 34 0RF Rx Instructions: Take 40mg (4 tablets) one a day for 4 days, 30mg (3 tablets) once a day for 3 days, 20mg (2 tablets) once a day for 3 days , 10mg (1 tablet) for 2 days, 5mg (0.5 tablets) for 2 days prazosin 2 mg capsule 2 mg PO HS Patient Comments: TAKE ONE CAPSULE BY MOUTH AT BEDTIME lisinopril 20 mg Tablet 20 mg PO DAILY sertraline [Zoloft] 100 mg Tablet 200 mg PO QAM divalproex [Depakote] 500 mg Tablet,Delayed Release (Dr/Ec) 1,000 mg PO QHS risperidone [Risperdal] 2 mg Tablet 4 mg PO HS melatonin 10 mg Tablet 10 mg PO QHS lorazepam 0.5 mg tablet 1 tab PO BID PRN PRN (Reason: Anxiety) Patient Comments: TAKE ONE TABLET BY MOUTH TWICE A DAY NEEDED FOR ANXIETY Trulicity 3 mg/0.5 mL pen injector 1 device SUBCUT QWEEK Patient Comments: INJECT ONCE WEEKLY DIRECTED amlodipine [Norvasc] 5 mg tablet 5 mg PO DAILY Qty: 30 0RF Sore Throat (phenol) 1.4 % Aerosol,[place] 3 spray mucous membrane QID PRN PRNQty: 177 0RF cholecalciferol (vitamin D3) 25 mcg (1,000 unit) tablet 1,000 units PO DAILY ibuprofen 800 mg tablet 800 mg PO BID PRN Patient Comments: TAKE ONE TABLET BY MOUTH TWICE A DAY NEEDED nicotine 21-14-7 mg/24 hr patch, TD daily, sequential See Rx Instructions .ROUTE .COMPLEX Qty: 56 0RF Rx Instructions: apply 1-21 mg NICOTINE PATCH daily for 28 days; follow with 1-14 mg PATCH daily for 14 days, then 1-7mg PATCH daily for 14 days prednisone 10 mg tablet 10 mg PO DIRECTED Qty: 72 0RF Rx Instructions: 50 mg/d x 7d, 40 mg/d x 4d, 30 mg/d x 4d, 20 mg/d x 3d, 10 mg/d x 3d, 5 mg/d x 3d Medical Decision Making 47 yo female with hx of oxygen dependent asthma and continued smoker, who comes in with ems with shortness of breath and cough slowly worsening throughout the day. Denies fevers, chills, chest pain. She states on her home 2L [place] her oxygen saturation tonight was 70% so called ems. She arrives caox4 and speaking clearly in 4-5 word sentences. She is tachypneic on arrival. She has no jvd, diffuse wheezing bilaterally on lung auscultation. No leg swelling and no calf tenderness. Suspect asthma exacerbation given her history and exam findings, will proceed with xray, cbc, cmp, ekg/troponin, duoneb and solumedrol. NO evidence of dvt on exam and no pleuritic chest pain and exam consistent with asthma so doubt PE at this time. She does state she feels anxious and will sometimes take ativan, will provide 0.5mg ativan and reassess. labs unremarkable other than mildly low mag, xray unremarkable, patient still with diffuse wheezing, on 3L NC is 88%, will discuss with hospitalist about admission and continued nebs and monitoring Differential Diagnosis Differential Diagnosis: asthma, copd, pneumonia Medical Records Medical records reviewed: Yes I reviewed the patient's medical records. Imaging Data Radiologic Study: Attestation: I personally reviewed and interpreted this imaging study as follows: Imaging: X-Ray Radiologist's impression: PROCEDURE INFORMATION: Exam: XR Chest Exam date and time: 05/02/2023 9:22 PM Age: 47 years old Clinical indication: Cough TECHNIQUE: Imaging protocol: Radiologic exam of the chest. Views: 1 view. COMPARISON: CT CHEST WO 02/11/2023 9:53 AM FINDINGS: Lungs: Lung volumes are low, with crowding of the pulmonary vasculature. No acute pulmonary infiltrate. Pleural spaces: Unremarkable. No pleural effusion. No pneumothorax. Heart/Mediastinum: Unremarkable. No ca rdiomegaly. Bones/joints: Old, healed fractures involving the bilateral 6th ribs. Bones are otherwise unremarkable. IMPRESSION: No acute interval change Lab Data Lab results reviewed: Yes I reviewed the patient's lab results. ECG Data Attestation: I personally reviewed and interpreted this ECG (s) as follows: Prior ECG tracings: available for review Interpretation: sinus rate of 85, pr 132, no stemi HPI General Mode of arrival: EMS . Date/Time Provider Initiated Documentation: 05/02/23 21:05 . Limitations to Documentation: no limitations . Information obtained by: patient . History of Present Illness 47 year old F presents to the emergency department with the chief complaint of shortness of breath, described as moderate, Patient started experiencing this day(s) (1) and it has been constant. No relieving factors improve symptom(s), No exacerbating factors reported . Patient notes cough; denies chest pain and fever/chills. Patient did receive the following treatments prior to arrival, none Related Data Home Medications Medication Instructions Recorded Confirmed divalproex 500 mg tablet,delayed 1,000 mg PO QHS 01/18/20 05/02/23 release (Depakote) lisinopril 20 mg tablet 20 mg PO DAILY 01/18/20 05/02/23 melatonin 10 mg tablet 10 mg PO QHS 01/18/20 05/02/23 risperidone 2 mg tablet (Risperdal) 4 mg PO HS 01/18/20 05/02/23 sertraline 100 mg tablet (Zoloft) 200 mg PO QAM 01/18/20 05/02/23 dulaglutide 3 mg/0.5 mL 1 device subcut QWEEK 10/10/22 05/02/23 subcutaneous pen injector (Trulicity) lorazepam 0.5 mg tablet 1 tab PO BID PRN PRN Anxiety 10/10/22 05/02/23 amlodipine 5 mg tablet (Norvasc) 5 mg PO DAILY #30 tabs 10/31/22 05/02/23 phenol 1.4 % mucosal aerosol spray 3 spray mucous membrane QID PRN 11/08/22 05/02/23 (Sore Throat (phenol)) PRN #177 mL cholecalciferol (vitamin D3) 25 1,000 units PO DAILY 11/18/22 05/02/23 mcg (1,000 unit) tablet ibuprofen 800 mg tablet 800 mg PO BID PRN 11/20/22 05/02/23 nicotine See Rx Instructions transdermal 11/21/22 05/02/23 21mg/24hr-14mg/24hr-7mg/24hr daily .COMPLEX #56 patches transderm patches,sequentl prazosin 2 mg capsule 2 mg PO HS 11/21/22 05/02/23 Oxygen #1 ea 12/13/22 05/02/23 albuterol sulfate 90 mcg/actuation 2 puff inhalation Q6H PRN 12/13/22 05/02/23 aerosol inhaler (Proventil HFA) shortness of breath or wheezing #8.5 grams ipratropium 0.5 mg-albuterol 3 mg 3 ml UPD Q4H PRN PRN shortness of 12/13/22 05/02/23 (2.5 mg base)/3 mL nebulization breath or wheezing #540 mL soln mometasone-formoterol HFA 200 2 puff inhalation BID #13 grams 12/13/22 05/02/23 mcg-5 mcg/actuation aerosol inhaler (Dulera) tiotropium bromide 2.5 2 puff inhalation DAILY #4 grams 12/13/22 05/02/23 mcg/actuation mist for inhalation (Spiriva Respimat) varenicline 0.5 mg (11)-1 mg (42) See Rx Instructions PO PER PKG DIR 12/13/22 05/02/23 tablets in a dose pack #53 dose pk varenicline 1 mg tablet 1 mg PO BID #56 tabs 12/13/22 05/02/23 prednisone 10 mg tablet 10 mg PO DIRECTED #72 tabs 02/12/23 05/02/23 azithromycin 250 mg tablet See Rx Instructions PO .COMPLEX 03/31/23 05/02/23 #36 tabs dextroamphetamine-amphetamine 10 10 mg PO DAILY 03/31/23 05/02/23 mg tablet (Adderall) prednisone 10 mg tablet 10 mg PO DAILY #34 tabs 03/31/23 05/02/23 Previous Rx's Medication Instructions Recorded amlodipine 5 mg tablet (Norvasc) 5 mg PO DAILY #30 tabs 10/31/22 phenol 1.4 % mucosal aerosol spray 3 spray mucous membrane QID PRN 11/08/22 (Sore Throat (phenol)) PRN #177 mL nicotine See Rx Instructions transdermal 11/21/22 21mg/24hr-14mg/24hr-7mg/24hr daily .COMPLEX #56 patches transderm patches,sequentl Oxygen #1 ea 12/13/22 albuterol sulfate 90 mcg/actuation 2 puff inhalation Q6H PRN 12/13/22 aerosol inhaler (Proventil HFA) shortness of breath or wheezing #8.5 grams ipratropium 0.5 mg-albuterol 3 mg 3 ml UPD Q4H PRN PRN shortness of 12/13/22 (2.5 mg base)/3 mL nebulization breath or wheezing #540 mL soln mometasone-formoterol HFA 200 2 puff inhalation BID #13 grams 12/13/22 mcg-5 mcg/actuation aerosol inhaler (Dulera) tiotropium bromide 2.5 2 puff inhalation DAILY #4 grams 12/13/22 mcg/actuation mist for inhalation (Spiriva Respimat) varenicline 0.5 mg (11)-1 mg (42) See Rx Instructions PO PER PKG DIR 12/13/22 tablets in a dose pack #53 dose pk varenicline 1 mg tablet 1 mg PO BID #56 tabs 12/13/22 prednisone 10 mg tablet 10 mg PO DIRECTED #72 tabs 02/12/23 azithromycin 250 mg tablet See Rx Instructions PO .COMPLEX 03/31/23 #36 tabs prednisone 10 mg tablet 10 mg PO DAILY #34 tabs 03/31/23 Allergies Allergy/AdvReac Type Severity Reaction Status Date / Time amoxicillin Allergy Nausea Unverified 05/02/23 21:05 bee pollen Allergy Hives Unverified 05/02/23 21:05 fluoxetine [From Prozac] Allergy Nausea Unverified 05/02/23 21:05 hazelnut Allergy Hives Unverified 05/02/23 21:05 abelox Allergy Hives Uncoded 05/02/23 21:05 General Stated Complaint: SOB ZACK: 2 Review of Systems All systems reviewed & are unremarkable except as noted in HPI and below Constitutional Constitutional: Denies chills, Denies fever(s) and Denies weakness Cardiovascular Cardiovascular: Denies chest pain and Reports dyspnea Respiratory Respiratory: Reports cough and Reports dyspnea Gastrointestinal Gastrointestinal: Denies abdominal pain, Denies nausea and Denies vomiting Integumentary/Breasts Skin/Breast: Denies rash Neurologic Neurologic: Denies weakness PFSH All Active Problems (Updated 05/02/23 @ 21:56 by Uriah Blue MD) Shortness of breath (Acute) Acute asthma exacerbation (Acute) Respiratory failure with hypoxia (Acute) Nicotine dependence, cigarettes, uncomplicated (Acute) Recurrent pneumonia (Acute) Asthma (Chronic) Vitamin D deficiency (Acute) Pharyngitis (Acute) Thrush (Acute) Type 2 diabetes mellitus (Chronic) Multifocal pneumonia (Acute) Pneumonia (Acute) Acute bronchitis (Acute) Tobacco abuse (Chronic) Encounter for medication refill (Acute) Medical History Acute asthma exacerbation Acute exacerbation of COPD with asthma Acute pneumonia ADHD Anxiety Bipolar disorder COPD exacerbation H/O suicide attempt Hypertension Hypoxia Non-insulin dependent diabetes mellitus Obesity (BMI 30.0-34.9) Surgical History S/P cholecystectomy Status post bilateral salpingectomy Family History Other Adopted Social History Smoking/Tobacco Use Status: Current every day Tobacco Type: cigarettes Smoking risk assessment performed?: Yes Alcohol Intake: never Substance use type: does not use Do you feel safe at home: Yes Do you feel safe in your relationship?: Yes Exam Const General: no acute distress Orientation: alert HENMT Head: normal to inspection Ears: external ears normal General nose exam: external nose normal Mouth: moist mucous membranes Eyes General: appearance normal, both eyes and all related structures Neck Neck: normal visual inspection Resp Effort & Inspection: normal respiratory effort Auscultation: wheezes Cardio Jugular venous pressure: no JVD Rate: regular rate Heart Sounds: no murmurs Skin General skin exam: no rashes or lesions noted Neuro General: patient alert and patient oriented x3 Extrem General: normal to inspection Psych Mental Status: mental status grossly normal Course Vital Signs Vital signs: Respiratory Effort Short of Breath 05/02/23 20:57 Pain Level 7 05/02/23 20:57 Lab/Test Results Lab/Test Results: 05/02/23 20:58 Blood Blood Culture - Pending 05/02/23 20:58 Blood Blood Culture - Pending Laboratory Tests Range/Units 05/02/23 21:02 COVID-19 Source Nasal/Nares
[2023-05-02] MEDS: Normal Saline 1,000 ML 1000 ML IV (21:14)
[2023-05-02 21:15] LABS: BE (Venous) 9 mmol/L (-2-3); HCO3 (Venous) 33 mmol/L (23-28); O2 Sat (Venous) 95 %; TCO2 (Venous) 30 mmol/L (24-29); pCO2 (Venous) 52 mmHg (41-51); pH (Venous) 7.41 (7.31-7.41); pO2 (Venous) 71 mmHg
[2023-05-02 21:16] LABS: Abs Immature Grans 0.04 10^3/uL (0.0-0.06); Absolute Basophil Count 0.02 10^3/uL (0.0-0.2); Absolute Eosinophil Count 0.12 10^3/uL (0.0-0.7); Absolute Lymphocyte Count 2.65 10^3/uL (1.2-3.4); Absolute Monocyte Count 0.47 10^3/uL (0.1-0.8); Absolute Neutrophil Count 7.27 10^3/uL (1.2-6.7); Basophils % 0.2; Eosinophils % 1.1; HCT 39.4 % (36.0-46.0); HGB 12.3 g/dL (11.2-15.7); Immature Grans % 0.4; Lymphocytes % 25.1; MCH 26.1 pg (27.0-33.0); MCHC 31.2 % (32.0-36.0); MCV 84 fL (80-95); MPV 8.8 fL (8.0-11.0); Monocytes % 4.4; Neutrophils % 68.8; Platelet Count 189 10^3/uL (130-400); RBC 4.71 10^6/uL (3.93-5.22); RDW 19.3 % (11.7-14.6); RDW-SD 59.6 fL; WBC 10.57 10^3/uL (4.4-10.8)
[2023-05-02] MEDS: LORazepam 2 MG/ML VIAL 0.5 MG IVP (21:34)
[2023-05-02 21:35] LABS: ALT 10 U/L (14-59); AST 10 U/L (15-37); Albumin 2.9 g/dL (3.4-5.0); Alkaline Phosphatase 89 U/L (46-116); Anion Gap 3.9 mmol/L (3-11); BUN 13 mg/dL (7-18); Bilirubin, Total 0.2 mg/dL (0.2-1.0); CO2 33.1 mmol/L (21.0-32.0); CREATININE 0.6 mg/dL (0.55-1.02); Calcium 8.6 mg/dL (8.5-10.1); Chloride 102 mmol/L (98-107); Estimated GFR 110.65 (mL/min/1.73m2); Glucose 152 mg/dL (74-106); Magnesium 1.6 mg/dL (1.8-2.4); Potassium 3.4 mmol/L (3.5-5.1); Sodium 139 mmol/L (136-145); Total Protein 7.3 g/dL (6.4-8.2); Troponin I < 50 ng/L (<or=60)
[2023-05-02 21:36] LABS: INR 0.9 (0.9-1.1); PTT Activated 27.5 sec (21.5-31.9); Prothrombin Time 9.1 sec (9.3-11.0)
--- NOTE | 2023-05-02 21:48 | DI.VRAD_ITS ---
PROCEDURE INFORMATION: Exam: XR Chest Exam date and time: 05/02/2023 9:22 PM Age: 47 years old Clinical indication: Cough TECHNIQUE: Imaging protocol: Radiologic exam of the chest. Views: 1 view. COMPARISON: CT CHEST WO 02/11/2023 9:53 AM FINDINGS: Lungs: Lung volumes are low, with crowding of the pulmonary vasculature. No acute pulmonary infiltrate. Pleural spaces: Unremarkable. No pleural effusion. No pneumothorax. Heart/Mediastinum: Unremarkable. No cardiomegaly. Bones/joints: Old, healed fractures involving the bilateral 6th ribs. Bones are otherwise unremarkable. IMPRESSION: No acute interval change Dictated and Authenticated by: Farooq Mckay MD. Ordering:YOLANDA Kruse MD
[2023-05-02] MEDS: MAGNESIUM SULFATE 1 GM/100 ML BAG IVPB (21:55)
[2023-05-02 22:01] LABS: COVID-19 PCR Negative (Negative)
[2023-05-02] MEDS: AZITHROMYCIN 500 MG in Normal Saline 250 ML 250 MG IVPB (22:09)
--- NOTE | 2023-05-02 22:32 | W.PM.HP.N ---
Date of service: 05/02/23 Time of Service: 22:32 Assessment and Plan Assessment and plan (1) Acute exacerbation of COPD with asthma: Assessment and plan: Cecilia has a long history of asthma that has become severe with a concern for likely COPD overlap. She has increased oxygen need and some respiratory distress, this I agree with admission. Continue IV steroids and nebulized bronchodilators. Continue azithromycin for COPD even though CXR not consistent with pneumonia. Treat hypomagnesemia. (2) Nicotine dependence, cigarettes, uncomplicated: Status: Acute Assessment and plan: NRT per request, patch. Encouraged to consider veranicline as well. (3) Type 2 diabetes mellitus: Status: Chronic Assessment and plan: A/w her psych meds valproate and risperidone. Controlled on GLP-1 as outpatient. Continue. (4) Hypertension: Assessment and plan: BP not well controlled now or as outpatient. Diuretic makes sense, but her K+ is slightly low as it is. Continue outpatient meds for now, but may consider aldosterone/PRA testing as outpatient, spironolactone? (5) Bipolar disorder: Assessment and plan: STable, continue her outpatient mediction. (6) DVT prophylaxis: Status: Acute Assessment and plan: LMWH givnn risk factors for VTE (7) Discharge planning issues: Status: Acute Assessment and plan: She is stable on the medical floor. Tele given electrolyte abnormalites and bronchodilators. History of Present Illness History of Present Illness Chief Complaint: short of breath Narrative: 47 yo smoker with history of severe asthma and type 2 DM presenting with 2 days of progressive cough, wheezing, and shortness of breath and reported home oxygen saturations in the high 70%s on her home 3 liters. She isn't sure what triggered her worsening symptoms. She has not had any runny nose, sore throat, or other cold symptoms. Cough is not productive, associated with anterior chest tightness and pain with coughing. SHe has not had any fevers or chills. She is smoking 5 cigarettes per day and she is trying to cut back. She has chantix but has been afraid to start it because of side effect concerns. also smokes. Of note, she was seen 03/27/[address] by her [facility] Dr. Walton who noted an exacerbation and treated with azithromycin and a 14 day taper of prednisone. She also increased the Dulera dose and added tiotropium inhaler. Dr. Walton thinks she may have concurrent COPD. Cecilia is using both new inhalers, but isn't sure they are helping. She has a history of multiple pneumonia and was last admitted 02/09 to 02/12/23. Review of Systems Constitutional Constitutional: Denies anorexia, Denies chills, Denies fever(s), Reports lethargy and Denies weakness Eyes Eyes: Denies change in vision and Denies irritation ENT Ears, Nose, Mouth, and Throat: Denies dysphagia, Denies dizziness, Denies nasal congestion, Denies nasal discharge and Denies sore throat Cardiovascular Cardiovascular: Denies leg edema, Denies lightheadedness and Denies palpitations Respiratory Respiratory: Denies hemoptysis and Denies excessive phlegm production Gastrointestinal Gastrointestinal: Denies abdominal pain, Denies dysphagia, Denies heartburn, Reports nausea and Denies vomiting Genitourinary Genitourinary: Denies hematuria, Denies dysuria and Denies urinary incontinence Musculoskeletal Musculoskeletal: Denies arthralgias and Denies joint swelling Integumentary/Breasts Skin/Breast: Denies rash and Denies skin ulcer Neurologic Neurologic: Denies dizziness, Denies sensory deficit and Denies weakness Psychiatric Psychiatric: Denies mood swings Endocrine Endocrine: Denies palpitations Hematologic/Lymphatic Hematologic/Lymphatic: Denies easy bleeding PFSH All Active Problems (Updated 05/02/23 @ 23:09 by Patel Peralta) Discharge planning issues (Acute) DVT prophylaxis (Acute) Shortness of breath (Acute) Acute asthma exacerbation (Acute) Respiratory failure with hypoxia (Acute) Nicotine dependence, cigarettes, uncomplicated (Acute) Recurrent pneumonia (Acute) Asthma (Chronic) Vitamin D deficiency (Acute) Pharyngitis (Acute) Thrush (Acute) Type 2 diabetes mellitus (Chronic) Multifocal pneumonia (Acute) Pneumonia (Acute) Acute bronchitis (Acute) Tobacco abuse (Chronic) Encounter for medication refill (Acute) Medical History Acute asthma exacerbation Acute exacerbation of COPD with asthma Acute pneumonia ADHD Anxiety Bipolar disorder COPD exacerbation H/O suicide attempt Hypertension Hypoxia Non-insulin dependent diabetes mellitus Obesity (BMI 30.0-34.9) Surgical History S/P cholecystectomy Status post bilateral salpingectomy Family History Other Adopted Social History Smoking/Tobacco Use Status: Current every day Tobacco Type: cigarettes Smoking risk assessment performed?: Yes Alcohol Intake: never Substance use type: does not use Do you feel safe at home: Yes Do you feel safe in your relationship?: Yes Additional Social history: Lives with on [address] in [facility]. She is disabled with her medical and mental health conditions. 22 year old daughter in [place]. Meds Allergies and Home Medications Allergies Allergy/AdvReac Type Severity Reaction Status Date / Time amoxicillin Allergy Nausea Unverified 05/02/23 21:05 bee pollen Allergy Hives Unverified 05/02/23 21:05 fluoxetine [From Prozac] Allergy Nausea Unverified 05/02/23 21:05 hazelnut Allergy Hives Unverified 05/02/23 21:05 abelox Allergy Hives Uncoded 05/02/23 21:05 Home Medications Medication Instructions Recorded Confirmed Type divalproex 500 mg tablet,delayed 1,000 mg PO QHS 01/18/20 05/02/23 History release (Depakote) lisinopril 20 mg tablet 20 mg PO DAILY 01/18/20 05/02/23 History melatonin 10 mg tablet 10 mg PO QHS 01/18/20 05/02/23 History risperidone 2 mg tablet (Risperdal) 4 mg PO HS 01/18/20 05/02/23 History sertraline 100 mg tablet (Zoloft) 200 mg PO QAM 01/18/20 05/02/23 History dulaglutide 3 mg/0.5 mL 1 device subcut QWEEK 10/10/22 05/02/23 History subcutaneous pen injector (Trulicity) lorazepam 0.5 mg tablet 1 tab PO BID PRN PRN Anxiety 10/10/22 05/02/23 History amlodipine 5 mg tablet (Norvasc) 5 mg PO DAILY #30 tabs 10/31/22 05/02/23 Rx phenol 1.4 % mucosal aerosol spray 3 spray mucous membrane QID PRN 11/08/22 05/02/23 Rx (Sore Throat (phenol)) PRN #177 mL cholecalciferol (vitamin D3) 25 1,000 units PO DAILY 11/18/22 05/02/23 History mcg (1,000 unit) tablet ibuprofen 800 mg tablet 800 mg PO BID PRN 11/20/22 05/02/23 History nicotine See Rx Instructions transdermal 11/21/22 05/02/23 Rx 21mg/24hr-14mg/24hr-7mg/24hr daily .COMPLEX #56 patches transderm patches,sequentl prazosin 2 mg capsule 2 mg PO HS 11/21/22 05/02/23 History Oxygen #1 ea 12/13/22 05/02/23 Rx albuterol sulfate 90 mcg/actuation 2 puff inhalation Q6H PRN 12/13/22 05/02/23 Rx aerosol inhaler (Proventil HFA) shortness of breath or wheezing #8.5 grams ipratropium 0.5 mg-albuterol 3 mg 3 ml UPD Q4H PRN PRN shortness of 12/13/22 05/02/23 Rx (2.5 mg base)/3 mL nebulization breath or wheezing #540 mL soln mometasone-formoterol HFA 200 2 puff inhalation BID #13 grams 12/13/22 05/02/23 Rx mcg-5 mcg/actuation aerosol inhaler (Dulera) tiotropium bromide 2.5 2 puff inhalation DAILY #4 grams 12/13/22 05/02/23 Rx mcg/actuation mist for inhalation (Spiriva Respimat) varenicline 0.5 mg (11)-1 mg (42) See Rx Instructions PO PER PKG DIR 12/13/22 05/02/23 Rx tablets in a dose pack #53 dose pk varenicline 1 mg tablet 1 mg PO BID #56 tabs 12/13/22 05/02/23 Rx prednisone 10 mg tablet 10 mg PO DIRECTED #72 tabs 02/12/23 05/02/23 Rx azithromycin 250 mg tablet See Rx Instructions PO .COMPLEX 03/31/23 05/02/23 Rx #36 tabs dextroamphetamine-amphetamine 10 10 mg PO DAILY 03/31/23 05/02/23 History mg tablet (Adderall) prednisone 10 mg tablet 10 mg PO DAILY #34 tabs 03/31/23 05/02/23 Rx Exam Narrative Exam Narrative: GEN: Alert and oriented, pleasant and cooperative, gives linear history. She is mildly dyspeic sitting up on side of bed and speaking, but able to speak in full sentances. HEENT: Head atraumatic. Conjunctiva clear, no icterus. PEERL, EOMI. no rhinorrhea. MMM, OP benign. Neck is supple with no masses or lymphadenopathy, trachea midline LUNGS: Slight inspiratory and diffuse marked expiratory wheeze with 1:4 prolonged expiratory phase. No rales. moving air bilaterally CV: RRR with no murmurs, gallops, or rubs. ABD: +BS, soft, NT/ND EXT: no cyanosis, clubbing, or edema MSK: No joint redness or swelling NEURO: CN 2-12 grossly intact. Normal movement of 4 extremities. Normal speech and coordination SKIN: No rashes or open wounds. PSYCH: mood and affect slightly anxious. Normal thought process Results Imaging Chest x-ray: report reviewed (No acute interval change) EKG: report reviewed and image reviewed (NSR, no ischemia) Labs 05/02/23 21:08 05/02/23 21:08 Labs: Laboratory Results - last 24 hr 05/02/23 05/02/23 05/02/23 21:02 21:08 21:08 WBC 10.57 RBC 4.71 Hgb 12.3 Hct 39.4 MCV 84 MCH 26.1 L MCHC 31.2 L RDW 19.3 H Plt Count 189 MPV 8.8 Immature Gran % 0.4 Neutrophils % 68.8 Lymphocytes % 25.1 Monocytes % 4.4 Eosinophils % 1.1 Basophils % 0.2 Nucleated RBC % 0.0 Absolute Neutrophils 7.27 H Absolute Lymphocytes 2.65 Absolute Monocytes 0.47 Absolute Eosinophils 0.12 Absolute Basophils 0.02 PT INR APTT VBG pH VBG pCO2 VBG pO2 VBG HCO3 VBG Total CO2 VBG O2 Saturation VBG Base Excess Sodium 139 Potassium 3.4 L Chloride 102 Carbon Dioxide 33.1 H Anion Gap 3.9 BUN 13 Creatinine 0.6 Est GFR (CKD-EPI 2020) 110.65 Glucose 152 H Calcium 8.6 Magnesium 1.6 L Total Bilirubin 0.2 AST 10 L ALT 10 L Alkaline Phosphatase 89 Troponin I < 50 Total Protein 7.3 Albumin 2.9 L COVID-19 Source Nasal/Nares SARS-CoV-2 (PCR) Negative 05/02/23 05/02/23 21:08 21:08 WBC RBC Hgb Hct MCV MCH MCHC RDW Plt Count MPV Immature Gran % Neutrophils % Lymphocytes % Monocytes % Eosinophils % Basophils % Nucleated RBC % Absolute Neutrophils Absolute Lymphocytes Absolute Monocytes Absolute Eosinophils Absolute Basophils PT 9.1 L INR 0.9 APTT 27.5 VBG pH 7.41 VBG pCO2 52 H VBG pO2 71 VBG HCO3 33 H VBG Total CO2 30 H VBG O2 Saturation 95 VBG Base Excess 9 H Sodium Potassium Chloride Carbon Dioxide Anion Gap BUN Creatinine Est GFR (CKD-EPI 2020) Glucose Calcium Magnesium Total Bilirubin AST ALT Alkaline Phosphatase Troponin I Total Protein Albumin COVID-19 Source SARS-CoV-2 (PCR) Last Vital Signs Temp 36.8 C 05/02/23 20:57 Pulse 93 H 05/02/23 22:15 Resp 24 05/02/23 22:15 BP 162/76 H 05/02/23 22:15 Pulse Ox 93 05/02/23 22:15 Time Spent Time spent with Patient: 55-74 minutes Time was spent: preparing to see the patient(eg.review tests), obtaining and/or reviewing separately otained hiistory, ordering medications,tests, procedures, referring, communicating with other health child care centre manager, indepentently interpreting results and counseling the patient
[2023-05-02] MEDS: Enoxaparin 40 MG/0.4 ML SYR SC (23:34)
[2023-05-02] MEDS: Nicotine 14 MG/24 HR PATCH TD (23:35)
[2023-05-02] MEDS: Acetaminophen 325 MG TAB PO (23:35)
[2023-05-02] MEDS: risperiDONE 1 MG TAB 4 MG PO (23:36)
[2023-05-02] MEDS: Prazosin 1 MG CAP 2 MG PO (23:38)
[2023-05-02] MEDS: Divalproex 500 MG TABEC 1000 MG PO (23:57)
[2023-05-03] VITALS (18 sets, daily range): BP systolic 147–188; BP diastolic 82–104; PULSE 75–102; RESP 4–22; TEMP 36.2–36.8; O2SAT 87–98
[2023-05-03 00:28] LABS: Troponin I < 50 ng/L (<or=60)
[2023-05-03] MEDS: methylPREDNISolone SUCC 125 MG VIAL 80 MG IVP ×2 (05:25→14:10)
[2023-05-03] MEDS: Albuterol/Ipratropium 3 ML UPD VIAL UPD ×3 (05:42→17:30)
[2023-05-03 06:25] LABS: Anion Gap 5.8 mmol/L (3-11); BUN 13 mg/dL (7-18); CO2 31.2 mmol/L (21.0-32.0); CREATININE 0.7 mg/dL (0.55-1.02); Calcium 8.5 mg/dL (8.5-10.1); Chloride 102 mmol/L (98-107); Estimated GFR 106.62 (mL/min/1.73m2); Glucose 261 mg/dL (74-106); Potassium 4.1 mmol/L (3.5-5.1); Sodium 139 mmol/L (136-145)
[2023-05-03] MEDS: Budesonide/Formoterol 160/4.5 6 GM 60 PUFF INH IH ×2 (08:47→19:21)
[2023-05-03] MEDS: Tiotropium Bromide-Respimat 10 PUFF INH 2 PUFF IH (08:47)
[2023-05-03] MEDS: Cholecalciferol (Vitamin D3) 1,000 UNIT TAB 1000 UNITS PO (09:56)
[2023-05-03] MEDS: Amphet Asp/Amphet/D-Amphet 10 MG TAB PO (09:57)
[2023-05-03] MEDS: amLODIPine 5 MG TAB PO (09:57)
[2023-05-03] MEDS: Lisinopril 20 MG TAB PO (09:57)
[2023-05-03] MEDS: Sertraline 100 MG TAB 200 MG PO (09:57)
[2023-05-03] MEDS: Albuterol 2.5 MG/3 ML INH SOLN VIAL UPD ×3 (10:14→19:21)
[2023-05-03] MEDS: Ibuprofen 800 MG TAB PO (12:30)
[2023-05-03] MEDS: Normal Saline Flush 10 ML SYR IVP ×2 (14:13→20:59)
--- NOTE | 2023-05-03 14:33 | INITIAL_ITS ---
Date of service: 05/03/23 Time of Service: 14:34 Care Management Initial Assmt Initial Assessment REASON FOR HOSPITALIZATION:: Asthma exacerbation PREVIOUS FUNCTIONAL STATUS/SOCIAL/FAMILY SUPPORTS:: Cecilia lives in [facility] with her Dheeraj. She has a daughter who is away at college. Cecilia is on disability due to anxiety and depression and receives therapy services at [facility]. She does not drive and uses [facility] for her transportation needs. She is independent with her ADLs at baseline. CURRENT FUNCTIONAL STATUS:: Cecilia is lying in bed when CM comes to meet with her. She makes good eye contact, is pleasant and easily engages in conversation but is soft spoken. She shares she does not feel well and reports being extremely tired. ADVANCE DIRECTIVES:: None on file; patient declines AD form. Has patient been provided with info about the portal/API?: Yes Did the patient sign up for the portal?: No CODE STATUS:: Full Code INSURANCE COVERAGE / FINANCIAL ISSUES:: [facility] and Medicaid CURRENT HOME/COMMUNITY SERVICES/EQUIPMENT:: SSDI, O2 thru [place], therapy with Pre[facility] at [facility], and [facility] for transportation. PRIMARY CARE PHYSICIAN:: Julianna Singh NP POTENTIAL DISCHARGE NEEDS:: Follow up appointments with PCP and pulmonology. PATIENT/FAMILY EDUCATION NEEDS:: Review of discharge instructions including limitations, medications and follow up plan of care; discuss Ask Me Three and self management. ANTICIPATED BARRIERS TO DISCHARGE:: None identified at this time. TRANSPORTATION:: Via [facility] private laundry route driver. PLAN:: Cecilia will return home with no new services when medically cleared by provider. She will follow up with her PCP, enterprise services manager, and plan of care as instructed. She will be transported home via [facility] private laundry route driver coordinated by CM when ready. CM will continue to support Cecilia and her discharge planning needs. [facility] All Active Problems (Updated 05/02/23 @ 23:09 by Patel Peralta) Discharge planning issues (Acute) DVT prophylaxis (Acute) Shortness of breath (Acute) Acute asthma exacerbation (Acute) Respiratory failure with hypoxia (Acute) Nicotine dependence, cigarettes, uncomplicated (Acute) Recurrent pneumonia (Acute) Asthma (Chronic) Vitamin D deficiency (Acute) Pharyngitis (Acute) Thrush (Acute) Type 2 diabetes mellitus (Chronic) Multifocal pneumonia (Acute) Pneumonia (Acute) Acute bronchitis (Acute) Tobacco abuse (Chronic) Encounter for medication refill (Acute) Medical History Acute asthma exacerbation Acute exacerbation of COPD with asthma Acute pneumonia ADHD Anxiety Bipolar disorder COPD exacerbation H/O suicide attempt Hypertension Hypoxia Non-insulin dependent diabetes mellitus Obesity (BMI 30.0-34.9) Surgical History S/P cholecystectomy Status post bilateral salpingectomy Family History Other Adopted Social History Smoking/Tobacco Use Status: Current every day Tobacco Type: cigarettes Smoking risk assessment performed?: Yes Alcohol Intake: never Substance use type: does not use Do you feel safe at home: Yes Do you feel safe in your relationship?: Yes Additional Social history: Lives with on [employer] in [facility]. She is disabled with her medical and mental health conditions. 22 year old daughter in [place].
[2023-05-03 15:55] LABS: BE (Venous) 7 mmol/L (-2-3); HCO3 (Venous) 32 mmol/L (23-28); O2 Sat (Venous) 94 %; TCO2 (Venous) 29 mmol/L (24-29); pCO2 (Venous) 50 mmHg (41-51); pH (Venous) 7.41 (7.31-7.41); pO2 (Venous) 69 mmHg
--- NOTE | 2023-05-03 17:37 | RESPIRATORY ---
RT Assessment Start: 05/03/23 15:49 Freq: .q shift and prn Status: Active Protocol: Document 05/03/23 17:33 (Rec: 05/03/23 17:37 [email or web address]) RT Assessment Pulmonary History Pulmonary History Asthma,COPD Smoking History Smoking/Tobacco Use Status Current every day Tobacco Type cigarettes Cigarettes per Day 5 Years smoked 40 OXYGEN HISTORY: Supplemental O2 At Rest 3 With Exertion 3 DME/Compliance DME [facility] Current Respiratory Symptoms Current Respiratory Symptoms Shortness of breath,Wheezing Respiratory Breath Sounds Breath Sounds Carmelo wheezing Response Significant response, improvement in breath sounds, increase peak flow Pulse Rate >100 Respiratory Rate 18-25 Shortness of Breath At rest Respiratory Therapy Score Total 9 Assessment and Plan RT Treatment Protocol Bronchodilator Aerosol Therapy Protocol,Lung Expansion Therapy Protocol
[2023-05-03 18:50] LABS: Lab Add On Test DONE
[2023-05-03] MEDS: LORazepam 0.5 MG TAB PO ×2 (18:52→22:50)
[2023-05-03 19:32] LABS: Procalcitonin < 0.1 ng/mL
[2023-05-03] MEDS: Enoxaparin 40 MG/0.4 ML SYR SC (20:58)
[2023-05-03] MEDS: Prazosin 1 MG CAP 2 MG PO (20:58)
[2023-05-03] MEDS: Divalproex 500 MG TABEC 1000 MG PO (20:58)
[2023-05-03] MEDS: risperiDONE 1 MG TAB 4 MG PO (20:58)
[2023-05-03] MEDS: AZITHROMYCIN 250 MG in Normal Saline 250 ML IVPB (20:59)
[2023-05-03] MEDS: Melatonin 3 MG TAB 9 MG PO (21:13)
[2023-05-03] MEDS: Insulin Glargine 300 UNITS/3 ML PEN 15 UNITS SC (21:13)
[2023-05-03] MEDS: methylPREDNISolone SUCC 40 MG VIAL IVP (21:13)
[2023-05-03] MEDS: Insulin Aspart 300 UNITS/3 ML PEN SC (21:14)
[2023-05-03] MEDS: Water,Injection,Sterile 10 ML VIAL (21:42)
[2023-05-04] VITALS (66 sets, daily range): BP systolic 154–194; BP diastolic 97–109; PULSE 82–119; RESP 4–22; TEMP 36.1–36.8; O2SAT 85–100
[2023-05-04] MEDS: Albuterol/Ipratropium 3 ML UPD VIAL UPD ×4 (00:02→18:04)
[2023-05-04] MEDS: methylPREDNISolone SUCC 40 MG VIAL IVP ×3 (05:44→21:49)
[2023-05-04] MEDS: Water,Injection,Sterile 10 ML VIAL (05:44)
[2023-05-04] MEDS: Normal Saline Flush 10 ML SYR IVP ×3 (05:46→21:55)
[2023-05-04 06:32] LABS: Abs Immature Grans 0.05 10^3/uL (0.0-0.06); Absolute Basophil Count 0.02 10^3/uL (0.0-0.2); Absolute Lymphocyte Count 2.09 10^3/uL (1.2-3.4); Absolute Monocyte Count 0.37 10^3/uL (0.1-0.8); Absolute Neutrophil Count 6.86 10^3/uL (1.2-6.7); Basophils % 0.2; HCT 37.8 % (36.0-46.0); HGB 11.9 g/dL (11.2-15.7); Immature Grans % 0.5; Lymphocytes % 22.3; MCH 26.3 pg (27.0-33.0); MCHC 31.5 % (32.0-36.0); MCV 83 fL (80-95); MPV 9.7 fL (8.0-11.0); Monocytes % 3.9; Neutrophils % 73.1; Platelet Count 182 10^3/uL (130-400); RBC 4.53 10^6/uL (3.93-5.22); RDW 19.4 % (11.7-14.6); RDW-SD 58.6 fL; WBC 9.39 10^3/uL (4.4-10.8)
[2023-05-04 06:46] LABS: Anion Gap 3.5 mmol/L (3-11); BUN 17 mg/dL (7-18); CO2 32.5 mmol/L (21.0-32.0); CREATININE 0.7 mg/dL (0.55-1.02); Calcium 8.7 mg/dL (8.5-10.1); Chloride 101 mmol/L (98-107); Estimated GFR 106.62 (mL/min/1.73m2); Glucose 217 mg/dL (74-106); Potassium 4.1 mmol/L (3.5-5.1); Sodium 137 mmol/L (136-145)
[2023-05-04] MEDS: Pantoprazole 40 MG TABCR PO (08:26)
[2023-05-04] MEDS: Cholecalciferol (Vitamin D3) 1,000 UNIT TAB 1000 UNITS PO (08:26)
[2023-05-04] MEDS: Amphet Asp/Amphet/D-Amphet 10 MG TAB PO (08:27)
[2023-05-04] MEDS: amLODIPine 5 MG TAB PO (08:27)
[2023-05-04] MEDS: Lisinopril 20 MG TAB PO (08:27)
[2023-05-04] MEDS: Sertraline 100 MG TAB 200 MG PO (08:27)
[2023-05-04] MEDS: Insulin Aspart 300 UNITS/3 ML PEN SC ×4 (08:28→22:19)
[2023-05-04] MEDS: Budesonide/Formoterol 160/4.5 6 GM 60 PUFF INH IH ×2 (08:33→19:19)
[2023-05-04] MEDS: Tiotropium Bromide-Respimat 10 PUFF INH 2 PUFF IH (08:55)
[2023-05-04] MEDS: Albuterol 2.5 MG/3 ML INH SOLN VIAL UPD ×3 (08:56→21:47)
[2023-05-04 11:24] LABS: D-Dimer 420 ng/mlFEU (<500)
[2023-05-04] MEDS: LORazepam 0.5 MG TAB PO ×2 (11:47→16:49)
--- NOTE | 2023-05-04 18:13 | PGE_ITS ---
Date of Service Date of service: 05/03/23 Time of Service: 12:00 Assessment and Plan Assessment and plan (1) Acute exacerbation of COPD with asthma: Assessment and plan: Cecilia has a long history of asthma that has become severe with a concern for likely COPD overlap. She has increased oxygen need and some respiratory distress Continue IV steroids and nebulized bronchodilators. Continue azithromycin for COPD even though CXR not consistent with pneumonia. Treat hypomagnesemia. (2) Nicotine dependence, cigarettes, uncomplicated: Status: Acute Assessment and plan: NRT per request, patch. Encouraged to consider veranicline as well. Not motivated to quit. (3) Type 2 diabetes mellitus: Status: Chronic Assessment and plan: A/w her psych meds valproate and risperidone. Controlled on GLP-1 as outpatient. Continue. (4) Hypertension: Assessment and plan: BP not well controlled now or as outpatient. Diuretic makes sense, but her K+ is slightly low as it is. Continue outpatient meds for now, but may consider aldosterone/PRA testing as outpatient. (5) Bipolar disorder: Assessment and plan: Stable, continue her outpatient medication. (6) DVT prophylaxis: Status: Acute Assessment and plan: LMWH givnn risk factors for VTE (7) Discharge planning issues: Status: Acute Assessment and plan: She is stable on the medical floor. Bronchodilators. Home with usual home oxygen when stable Stop smoking Discussed with Dr Jacobo. Subjective Subjective Patient reports: no new complaints Interval history since last seen: Continues to have diff breathing with O2 up to 4.5 lpm - although not unusual for her. Receiving 4 nebs daily. Some anxiety but refuses anxiety med. She is constantly on 3 LPM NC at home and continues to smoke Exam Narrative Exam Narrative: GEN: Alert and oriented, pleasant and cooperative, gives linear history. She is mildly dyspeic sitting up on side of bed and speaking, but able to speak in full sentances. HEENT: Head atraumatic. Conjunctiva clear, no icterus. PEERL, EOMI. no rhinorrhea. MMM, OP benign. Neck is supple with no masses or lymphadenopathy, trachea midline LUNGS: Slight inspiratory and diffuse marked expiratory wheeze with 1:4 prolonged expiratory phase. No rales. moving air bilaterally; not much inprovement - on 4.5 LPM NC CV: RRR with no murmurs, gallops, or rubs. ABD: +BS, soft, NT/ND EXT: no cyanosis, clubbing, or edema MSK: No joint redness or swelling NEURO: CN 2-12 grossly intact. Normal movement of 4 extremities. Normal speech and coordination SKIN: No rashes or open wounds. PSYCH: mood and affect slightly anxious. Normal thought process Objective Last Vital Signs Temp 36.8 C 05/04/23 15:50 Pulse 105 H 05/04/23 18:04 Resp 20 05/04/23 15:50 BP 194/98 H 05/04/23 15:50 Pulse Ox 90 L 05/04/23 18:05 Laboratory Results - last 24 hr 05/03/23 05/03/23 05/04/23 15:51 18:49 05:15 WBC 9.39 RBC 4.53 Hgb 11.9 Hct 37.8 MCV 83 MCH 26.3 L MCHC 31.5 L RDW 19.4 H Plt Count 182 MPV 9.7 Immature Gran % 0.5 Neutrophils % 73.1 Lymphocytes % 22.3 Monocytes % 3.9 Eosinophils % 0.0 Basophils % 0.2 Nucleated RBC % 0.0 Absolute Neutrophils 6.86 H Absolute Lymphocytes 2.09 Absolute Monocytes 0.37 Absolute Eosinophils 0.00 Absolute Basophils 0.02 D-Dimer Sodium Potassium Chloride Carbon Dioxide Anion Gap BUN Creatinine Est GFR (CKD-EPI 2020) Glucose Calcium Magnesium Procalcitonin < 0.1 Add-On Test Request DONE 05/04/23 05/04/23 05:55 10:15 WBC RBC Hgb Hct MCV MCH MCHC RDW Plt Count MPV Immature Gran % Neutrophils % Lymphocytes % Monocytes % Eosinophils % Basophils % Nucleated RBC % Absolute Neutrophils Absolute Lymphocytes Absolute Monocytes Absolute Eosinophils Absolute Basophils D-Dimer 420 Sodium 137 Potassium 4.1 Chloride 101 Carbon Dioxide 32.5 H Anion Gap 3.5 BUN 17 Creatinine 0.7 Est GFR (CKD-EPI 2020) 106.62 Glucose 217 H Calcium 8.7 Magnesium 2.0 Procalcitonin Add-On Test Request Time Spent with Patient Time Spent with Patient: 35-49 minutes Time was spent: preparing to see the patient(eg.review tests), ordering medications,tests, procedures, referring, communicating with other health gericare aide teacher, indepentently interpreting results, counseling the patient and care coordination
--- NOTE | 2023-05-04 18:26 | PGE_ITS ---
Date of Service Date of service: 05/04/23 Time of Service: 18:26 Assessment and Plan Assessment and plan (1) Acute exacerbation of COPD with asthma: Assessment and plan: Cecilia has a long history of asthma that has become severe with a concern for likely COPD overlap. She has increased oxygen need and some respiratory distress - up to 4.5 lpm via NC Continue IV steroids and nebulized bronchodilators. Continue azithromycin for COPD even though CXR not consistent with pneumonia. Electrolytes stable (2) Nicotine dependence, cigarettes, uncomplicated: Status: Acute Assessment and plan: NRT per request, patch. Encouraged to consider veranicline as well. Not motivated to quit. (3) Type 2 diabetes mellitus: Status: Chronic Assessment and plan: A/w her psych meds valproate and risperidone. Controlled on GLP-1 as outpatient. Continue. (4) Hypertension: Assessment and plan: BP not well controlled now or as outpatient. Start sprironolactone (5) Bipolar disorder: Assessment and plan: Stable, continue her outpatient medication. (6) DVT prophylaxis: Status: Acute Assessment and plan: LMWH givnn risk factors for VTE (7) Discharge planning issues: Status: Acute Assessment and plan: She is stable on the medical floor. Bronchodilators. Home with usual home oxygen when stable Stop smoking Discussed with Dr Jacobo. Subjective Subjective Patient reports: no new complaints and tolerating a regular diet Interval history since last seen: Continues to have trouble breathing and increased oxygen demand 4.5 lpm via NC Exam Narrative Exam Narrative: GEN: Alert and oriented, pleasant and cooperative, gives linear history. She is mildly dyspeic sitting up on side of bed and speaking, but able to speak in full sentances. HEENT: Head atraumatic. Conjunctiva clear, no icterus. PEERL, EOMI. no rhino rrhea. MMM, OP benign. Neck is supple with no masses or lymphadenopathy, trachea midline LUNGS: Slight inspiratory and diffuse marked expiratory wheeze with 1:4 prolonged expiratory phase. No rales. moving air bilaterally; not much inprovement - on 4.5 LPM NC CV: RRR with no murmurs, gallops, or rubs. ABD: +BS, soft, NT/ND EXT: no cyanosis, clubbing, or edema MSK: No joint redness or swelling NEURO: CN 2-12 grossly intact. Normal movement of 4 extremities. Normal speech and coordination SKIN: No rashes or open wounds. PSYCH: mood and affect slightly anxious. Normal thought process Objective Last Vital Signs Temp 36.8 C 05/04/23 15:50 Pulse 105 H 05/04/23 18:04 Resp 20 05/04/23 15:50 BP 194/98 H 05/04/23 15:50 Pulse Ox 90 L 05/04/23 18:05 Laboratory Results - last 24 hr 05/03/23 05/03/23 05/04/23 15:51 18:49 05:15 WBC 9.39 RBC 4.53 Hgb 11.9 Hct 37.8 MCV 83 MCH 26.3 L MCHC 31.5 L RDW 19.4 H Plt Count 182 MPV 9.7 Immature Gran % 0.5 Neutrophils % 73.1 Lymphocytes % 22.3 Monocytes % 3.9 Eosinophils % 0.0 Basophils % 0.2 Nucleated RBC % 0.0 Absolute Neutrophils 6.86 H Absolute Lymphocytes 2.09 Absolute Monocytes 0.37 Absolute Eosinophils 0.00 Absolute Basophils 0.02 D-Dimer Sodium Potassium Chloride Carbon Dioxide Anion Gap BUN Creatinine Est GFR (CKD-EPI 2020) Glucose Calcium Magnesium Procalcitonin < 0.1 Add-On Test Request DONE 05/04/23 05/04/23 05:55 10:15 WBC RBC Hgb Hct MCV MCH MCHC RDW Plt Count MPV Immature Gran % Neutrophils % Lymphocytes % Monocytes % Eosinophils % Basophils % Nucleated RBC % Absolute Neutrophils Absolute Lymphocytes Absolute Monocytes Absolute Eosinophils Absolute Basophils D-Dimer 420 Sodium 137 Potassium 4.1 Chloride 101 Carbon Dioxide 32.5 H Anion Gap 3.5 BUN 17 Creatinine 0.7 Est GFR (CKD-EPI 2020) 106.62 Glucose 217 H Calcium 8.7 Magnesium 2.0 Procalcitonin Add-On Test Request Time Spent with Patient Time Spent with Patient: 35-49 minutes Time was spent: preparing to see the patient(eg.review tests), ordering medications,tests, procedures, referring, communicating with other health patient care secretary, indepentently interpreting results, counseling the patient and care coordination
[2023-05-04] MEDS: Nicotine 14 MG/24 HR PATCH TD (18:47)
[2023-05-04] MEDS: Melatonin 3 MG TAB 9 MG PO (21:53)
[2023-05-04] MEDS: risperiDONE 1 MG TAB 4 MG PO (21:54)
[2023-05-04] MEDS: Prazosin 1 MG CAP 2 MG PO (21:54)
[2023-05-04] MEDS: Divalproex 500 MG TABEC 1000 MG PO (21:54)
[2023-05-04] MEDS: AZITHROMYCIN 250 MG in Normal Saline 250 ML IVPB (21:54)
[2023-05-04] MEDS: Enoxaparin 40 MG/0.4 ML SYR SC (21:55)
[2023-05-04] MEDS: Insulin Glargine 300 UNITS/3 ML PEN 15 UNITS SC (22:18)
[2023-05-05] VITALS (23 sets, daily range): BP systolic 135–202; BP diastolic 70–106; PULSE 67–94; RESP 2–20; TEMP 36–37.2; O2SAT 90–99
[2023-05-05] MEDS: Albuterol/Ipratropium 3 ML UPD VIAL UPD ×3 (05:50→18:24)
[2023-05-05] MEDS: methylPREDNISolone SUCC 40 MG VIAL IVP (06:13)
[2023-05-05 06:55] LABS: Abs Immature Grans 0.05 10^3/uL (0.0-0.06); Absolute Basophil Count 0.01 10^3/uL (0.0-0.2); Absolute Lymphocyte Count 2.51 10^3/uL (1.2-3.4); Absolute Monocyte Count 0.42 10^3/uL (0.1-0.8); Absolute Neutrophil Count 6.96 10^3/uL (1.2-6.7); Basophils % 0.1; HCT 40.3 % (36.0-46.0); HGB 12.7 g/dL (11.2-15.7); Immature Grans % 0.5; Lymphocytes % 25.2; MCH 26.3 pg (27.0-33.0); MCHC 31.5 % (32.0-36.0); MCV 83 fL (80-95); MPV 9.8 fL (8.0-11.0); Monocytes % 4.2; Platelet Count 199 10^3/uL (130-400); RBC 4.83 10^6/uL (3.93-5.22); RDW 19.6 % (11.7-14.6); RDW-SD 59.2 fL; WBC 9.95 10^3/uL (4.4-10.8)
[2023-05-05 07:19] LABS: Anion Gap 3.3 mmol/L (3-11); BUN 17 mg/dL (7-18); CO2 34.7 mmol/L (21.0-32.0); CREATININE 0.6 mg/dL (0.55-1.02); Calcium 8.9 mg/dL (8.5-10.1); Chloride 101 mmol/L (98-107); Estimated GFR 110.65 (mL/min/1.73m2); Glucose 164 mg/dL (74-106); Magnesium 1.8 mg/dL (1.8-2.4); Potassium 3.9 mmol/L (3.5-5.1); Sodium 139 mmol/L (136-145)
[2023-05-05] MEDS: Tiotropium Bromide-Respimat 10 PUFF INH 2 PUFF IH (07:39)
[2023-05-05] MEDS: Budesonide/Formoterol 160/4.5 6 GM 60 PUFF INH IH ×2 (07:40→19:25)
[2023-05-05] MEDS: Sertraline 100 MG TAB 200 MG PO (09:38)
[2023-05-05] MEDS: Cholecalciferol (Vitamin D3) 1,000 UNIT TAB 1000 UNITS PO (09:38)
[2023-05-05] MEDS: Pantoprazole 40 MG TABCR PO (09:38)
[2023-05-05] MEDS: Lisinopril 20 MG TAB PO (09:39)
[2023-05-05] MEDS: amLODIPine 5 MG TAB PO (09:39)
[2023-05-05] MEDS: Spironolactone 25 MG TAB PO (09:39)
[2023-05-05] MEDS: Amphet Asp/Amphet/D-Amphet 10 MG TAB PO (09:39)
[2023-05-05] MEDS: Insulin Aspart 300 UNITS/3 ML PEN SC ×3 (09:42→22:07)
[2023-05-05] MEDS: LORazepam 0.5 MG TAB PO ×2 (12:15→16:26)
--- NOTE | 2023-05-05 12:21 | CMPROGNOTE_ITS ---
Date of service: 05/05/23 Time of Service: 12:21 Care Management Progress Note Progress Note Text Progress Note Text: S/O:Cecilia was sitting on the side of her bed weeping when CM went to see her at her request. She stated that just really wants to go home. She stated that she misses her cats and Dheeraj and does not want to stay in the hospital. CM explained that, medically, she is not ready for discharge. The provider feels she needs more treatment and that if she leaves, it will be against medical advice. She informed CM that Dheeraj does not want her to do that. She seems to understand however is emotionally upset at having to remain at [facility]. She agreed to stay one more night but would like to discharge early tomorrow if possible. Per provider, Cecilia has improved and discharge tomorrow is quite possible as long as she continues to improve. A: Cecilia is a 47 year old woman admitted on 05/02/23 with an asthma exacerbation P:Cecilia will return home with no new services when medically cleared by provider.? She will follow up with her PCP, black top roller, and plan of care as instructed.? She will be transported home via [facility] private driver license technician coordinated by CM when ready. CM will continue to support Cecilia and her discharge planning needs.
--- NOTE | 2023-05-05 12:46 | W.INDIABCONS ---
Date of service: 05/05/23 Time of Service: 12:46 Diabetes Inpatient Consult Reason for Visit: dm2 DESCRIPTION/ASSESSMENT: Cecilia was busy when attempted to visit. Will check in again tomorrow. Cecilia admitted with acute asthma exaceration, COPD. PMH: Dm2, HTN, Bipolar dx. Continues to smoke daily. Meds include risperdone, prednison, depakote and trulicity. BMI of 38 typical for Cecilia. Has several medications that cause weight gain and elevated blood sugars treating her asthma/mood disorder. Following diabetic diet with excellent intake. Dm appears to be well controlled with only the trulicity. Recommend checking A1C to get updated one. PLAN: Will follow up when available. Time Spent in Nutritional Counseling and Treatment: 0
[2023-05-05] MEDS: Metoprolol 12.5 MG TAB PO ×2 (12:53→20:08)
--- NOTE | 2023-05-05 14:45 | RT.EKG_ITS ---
APPROVED REPORT Exam: Resting ECG Reason for Exam: atrial flutter Patient Location: I HR:79 bpm ECG Measurements Heart Rate 79 AXIS TN 123 P 48 QRSd 82 QRS 76 QT 366 T 43 QTc 420 Conclusion Sinus rhythm...normal P axis, V-rate 50- 99 Anteroseptal infarct, old...Q >40mS, V1-V2
--- NOTE | 2023-05-05 14:55 | W.PM.PROGNOT ---
Date of Service Date of service: 05/05/23 Time of Service: 14:56 Assessment and Plan Assessment and plan (1) Acute exacerbation of COPD with asthma: Assessment and plan: Clinically improving. Will ask RT to check exercise oximetry. Change steroids to PO. Continue scheduled + prn nebs, symbicort. No evidence of PNA, and procalcitonin negative - no need for abx. Pulmonology consulted. (Symbicort could be contributing to atrial flutter, but rates have been controlled.) (2) Respiratory failure with hypoxia: Status: Acute Assessment and plan: As above. Normally on 3L of O2 by NC. (3) Atrial flutter: Status: Acute Assessment and plan: New diagnosis. Noted on tele which was initiated for hypertension. Obtain an EKG. Obtain an echo. [id number] score is 3.2, so technically the patient should be considered for anticoagulation therapy. I will talk to her about it. She is on amphetamines and symbicort which could both be fueling this, but of course just having a h/o chronic respiratory disease can cause atrial arrhythmias as well. She is rate controlled for now but is being started on beta blockers for her hypertension. Will monitor on tele. (4) Nicotine dependence, cigarettes, uncomplicated: Status: Acute Assessment and plan: Continue nicotine replacement therapy. (5) Type 2 diabetes mellitus: Status: Chronic Assessment and plan: On trulicity as outpatient. Continue lantus + SSI while in-house due to steroid-induced hyperglycemia. (6) Hypertension: Assessment and plan: Continue lisinopril, spironolactone, amlodipine. add beta chiquita. Some of this could be due to steroids and amphetamines. (7) Bipolar disorder: Assessment and plan: Continue valproate and risperidone. (8) DVT prophylaxis: Status: Acute Assessment and plan: LMWH givnn risk factors for VTE (9) Discharge planning issues: Status: Acute Assessment and plan: Full code Check exercise oximetry. Anticipate discharge home tomorrow. Subjective Subjective Interval history since last seen: Ms Boudreaux states she is feeling a lot better today. She would like to go home. She states that she usually uses 3 L of O2 at home, but here with ambulation has been using 4L. Denies dizziness, CP, still gets MALDONADO, denies n/v. Nursing reports that the patient has been hypertensive. Her last BP is 202/98. She was written for prn IV lopressor and PO metoprolol. On telemetry, she has been going in and out of atrial flutter. Exam Narrative Exam Narrative: General: Pleasant middle-aged female who is ambulating with a portable tank at 4L of O2, does have MALDONADO HEENT: EOMI, MMM Heart: RRR, no m/r/g Lungs: wheezing R base Abdomen: soft, nontender, nondistended Extremities: no edema BLEs Objective Last Vital Signs Temp 36.7 C 05/05/23 11:32 Pulse 83 05/05/23 14:01 Resp 18 05/05/23 13:08 BP 174/97 H 05/05/23 13:42 Pulse Ox 92 05/05/23 13:08 Laboratory Results - last 24 hr 05/05/23 05/05/23 06:16 06:16 WBC 9.95 RBC 4.83 Hgb 12.7 Hct 40.3 MCV 83 MCH 26.3 L MCHC 31.5 L RDW 19.6 H Plt Count 199 MPV 9.8 Immature Gran % 0.5 Neutrophils % 70.0 Lymphocytes % 25.2 Monocytes % 4.2 Eosinophils % 0.0 Basophils % 0.1 Nucleated RBC % 0.0 Absolute Neutrophils 6.96 H Absolute Lymphocytes 2.51 Absolute Monocytes 0.42 Absolute Eosinophils 0.00 Absolute Basophils 0.01 Sodium 139 Potassium 3.9 Chloride 101 Carbon Dioxide 34.7 H Anion Gap 3.3 BUN 17 Creatinine 0.6 Est GFR (CKD-EPI 2020) 110.65 Glucose 164 H Calcium 8.9 Magnesium 1.8 Objective Narrative Objective Narrative: EKG pending Time Spent with Patient Time Spent with Patient: 35-49 minutes Time was spent: preparing to see the patient(eg.review tests), obtaining and/or reviewing separately otained hiistory, ordering medications,tests, procedures, referring, communicating with other health resident care manager, indepentently interpreting results, counseling the patient and care coordination
--- NOTE | 2023-05-05 17:09 | RESPIRATORY ---
RT Assessment Start: 05/03/23 15:49 Freq: .q shift and prn Status: Active Protocol: Document 05/05/23 13:01 LISANDRA (Rec: 05/05/23 13:08 LISANDRA [id number]) RT Assessment Pulmonary History Pulmonary History Asthma,COPD Smoking History Smoking/Tobacco Use Status Current every day Tobacco: How many years used 40 Tobacco Type cigarettes Cigarettes per Day 5 Years smoked 40 Smoking packs per day 0.25 OXYGEN HISTORY: Supplemental O2 At Rest 3 With Exertion 3 CPAP Settings N/A BIPAP Settings N/A Trilogy/AVAPS Settings N/A DME/Compliance DME [facility] Compliance YES Current Respiratory Symptoms Current Respiratory Symptoms Cough,Hemoptysis,Shortness of breath,Wheezing Respiratory Breath Sounds Breath Sounds Faint wheezing or rhonci, decreased sounds throughout Response Significant response, improvement in breath sounds, increase peak flow Pulse Rate <100 Respiratory Rate <18 Shortness of Breath On exertion Respiratory Therapy Score Total 5 Assessment and Plan RT Treatment Protocol Bronchodilator Aerosol Therapy Protocol,Lung Expansion Therapy Protocol,Bronchial Hygiene Therapy Protocol Note Pt curently has IS and Acapella in room, RT will assist in use of device. Pt to be re-evaluated in 72hrs ()
[2023-05-05] MEDS: Apixaban 5 MG TAB PO (20:08)
[2023-05-05] MEDS: Metoprolol 5 MG/5 ML VIAL 2.5 MG IVP (21:52)
[2023-05-05] MEDS: Normal Saline Flush 10 ML SYR IVP (21:54)
[2023-05-05] MEDS: AZITHROMYCIN 250 MG in Normal Saline 250 ML IVPB (22:06)
[2023-05-05] MEDS: risperiDONE 1 MG TAB 4 MG PO (22:06)
[2023-05-05] MEDS: Melatonin 3 MG TAB 9 MG PO (22:06)
[2023-05-05] MEDS: Divalproex 500 MG TABEC 1000 MG PO (22:06)
[2023-05-05] MEDS: Prazosin 1 MG CAP 2 MG PO (22:07)
[2023-05-05] MEDS: Insulin Glargine 300 UNITS/3 ML PEN 15 UNITS SC (22:08)
[2023-05-06] VITALS (8 sets, daily range): BP systolic 132–150; BP diastolic 81–92; PULSE 74–89; RESP 4–18; TEMP 36–36.9; O2SAT 89–98
[2023-05-06] MEDS: Albuterol/Ipratropium 3 ML UPD VIAL UPD ×2 (05:42→12:40)
[2023-05-06 07:28] LABS: Anion Gap 2.9 mmol/L (3-11); BUN 16 mg/dL (7-18); CO2 35.1 mmol/L (21.0-32.0); CREATININE 0.7 mg/dL (0.55-1.02); Calcium 8.1 mg/dL (8.5-10.1); Chloride 101 mmol/L (98-107); Estimated GFR 106.62 (mL/min/1.73m2); Glucose 78 mg/dL (74-106); Magnesium 1.6 mg/dL (1.8-2.4); Potassium 3.4 mmol/L (3.5-5.1); Sodium 139 mmol/L (136-145)
[2023-05-06] MEDS: Pantoprazole 40 MG TABCR PO (07:45)
[2023-05-06] MEDS: Budesonide/Formoterol 160/4.5 6 GM 60 PUFF INH IH (08:18)
[2023-05-06] MEDS: Tiotropium Bromide-Respimat 10 PUFF INH 2 PUFF IH (08:30)
[2023-05-06] MEDS: Spironolactone 25 MG TAB PO (09:17)
[2023-05-06] MEDS: Metoprolol 12.5 MG TAB PO (09:17)
[2023-05-06] MEDS: Amphet Asp/Amphet/D-Amphet 10 MG TAB PO (09:17)
[2023-05-06] MEDS: Lisinopril 20 MG TAB PO (09:17)
[2023-05-06] MEDS: Potassium Chloride 10 MEQ CAPCR 20 MEQ PO (09:17)
[2023-05-06] MEDS: Sertraline 100 MG TAB 200 MG PO (09:17)
[2023-05-06] MEDS: amLODIPine 5 MG TAB PO (09:18)
[2023-05-06] MEDS: predniSONE 20 MG TAB 40 MG PO (09:18)
[2023-05-06] MEDS: Cholecalciferol (Vitamin D3) 1,000 UNIT TAB 1000 UNITS PO (09:18)
[2023-05-06] MEDS: Apixaban 5 MG TAB PO (09:18)
[2023-05-06] MEDS: MAGNESIUM SULFATE 2 GM/50 ML BAG IVPB (09:19)
--- NOTE | 2023-05-06 13:50 | DSE_ITS ---
Date of service: 05/06/23 Time of Service: 13:51 DS: Diagnosis Discharge Diagnosis (1) Acute exacerbation of COPD with asthma: (2) Respiratory failure with hypoxia: Status: Acute (3) Atrial flutter: Status: Deleted (4) Nicotine dependence, cigarettes, uncomplicated: Status: Acute (5) Type 2 diabetes mellitus: Status: Chronic (6) Hypertension: (7) Bipolar disorder: (8) DVT prophylaxis: Status: Deleted (9) Discharge planning issues: Status: Deleted Discharge Plan Disposition Patient Disposition: Home Condition: Fair Discharge Details Reason For Visit: Asthma Exacerbation Admit Date/Time: 05/05/23 15:00 Admit Provider: Patel Peralta Attending Provider: Patel Peralta Primary Care Provider: BRYCE SMITH [facility] Hospital Course: This is a 47 yo female smoker with history of severe asthma and type 2 DM who presented to the ED with 2 days of progressive cough, wheezing, and shortness of breath and reported home oxygen saturations in the high 70%s on her home 3 liters.? She wasn't sure what triggered her worsening symptoms.? She did not have any runny nose, sore throat, or other cold symptoms.? Cough was not productive, associated with anterior chest tightness and pain with coughing.? She had not had any fevers or chills.? She is smoking 5 cigarettes per day and she is trying to cut back.? She has chantix but has been afraid to start it because of side effect concerns.? also smokes. Patient was seen 03/27/23 by her Mental Health Counselor Dr. Walton who noted an exacerbation and treated with azithromycin and a 14 day taper of prednisone.? She also increased the Dulera dose and added tiotropium inhaler.? Dr. Walton thinks she may have concurrent COPD.? Patient is using both new inhalers, but isn't sure they are helping.? She has a history of multiple pneumonia and was last admitted 02/09 to 02/12/23.? She was admitted to the medical floor for managment of her difficulty breathing. She was started on Sprinolactone in the hospital to help control her elevated blood pressure. She was thought to have Aflutter at some point in her stay but was proven to be artifact and therefore She improved to baseline and was discharged home with usual oxygen 3 LPM, told not to smoke, follow up with pulmonology, PCP and prednisone taper, stable. ? Patient's rhythm strips were reviewed by myself (Dr. Gómez) and also by Dr. Chacko (pr internship) and this was determined to be artifact and not true atrial flutter. Therefore, patient was not discharged home on apixaban as originally planned. An Rx was originally sent to her pharmacy, [facility], to check cost to patient, howver, [facility] was notified by Tiffanie Noriega CNP, not to fill the Rx. Home Meds and New Rx's Prescriptions: New spironolactone 25 mg Tablet 25 mg PO DAILY Qty: 30 0RF Continued albuterol sulfate [Proventil HFA] 90 mcg/actuation HFA aerosol inhaler 2 puff inhalation Q6H PRN (Reason: shortness of breath or wheezing) Qty: 8.5 12RF ipratropium-albuterol 0.5 mg-3 mg(2.5 mg base)/3 mL solution for nebulization 3 ml UPD Q4H PRN PRN (Reason: shortness of breath or wheezing) Qty: 540 12RF Dulera 200-5 mcg/actuation HFA aerosol inhaler 2 puff inhalation BID Qty: 13 12RF Rx Instructions: Rinse mouth after use Spiriva Respimat 2.5 mcg/actuation mist 2 puff inhalation DAILY Qty: 4 12RF varenicline 1 mg tablet 1 mg PO BID Qty: 56 5RF Rx Instructions: Start after other start pack (DME) Oxygen Tank See Rx Instructions .Route Qty: 1 0RF Rx Instructions: 2LPM with exertion dextroamphetamine-amphetamine [Adderall] 10 mg tablet 10 mg PO DAILY prazosin 2 mg capsule 2 mg PO HS Patient Comments: TAKE ONE CAPSULE BY MOUTH AT BEDTIME lisinopril 20 mg Tablet 20 mg PO DAILY sertraline [Zoloft] 100 mg Tablet 200 mg PO QAM divalproex [Depakote] 500 mg Tablet,Delayed Release (Dr/Ec) 1,000 mg PO QHS risperidone [Risperdal] 2 mg Tablet 4 mg PO HS melatonin 10 mg Tablet 10 mg PO QHS lorazepam 0.5 mg tablet 1 tab PO BID PRN PRN (Reason: Anxiety) Patient Comments: TAKE ONE TABLET BY MOUTH TWICE A DAY NEEDED FOR ANXIETY Trulicity 3 mg/0.5 mL pen injector 1 device SUBCUT QWEEK Patient Comments: INJECT ONCE WEEKLY DIRECTED amlodipine [Norvasc] 5 mg tablet 5 mg PO DAILY Qty: 30 0RF prednisone 10 mg tablet 10 mg PO DAILY Qty: 34 0RF Rx Instructions: Take 40mg (4 tablets) one a day for 4 days, 30mg (3 tablets) once a day for 3 days, 20mg (2 tablets) once a day for 3 days , 10mg (1 tablet) for 2 days, 5mg (0.5 tablets) for 2 days Sore Throat (phenol) 1.4 % Aerosol,Ethel 3 spray mucous membrane QID PRN PRNQty: 177 0RF cholecalciferol (vitamin D3) 25 mcg (1,000 unit) tablet 1,000 units PO DAILY ibuprofen 800 mg tablet 800 mg PO BID PRN Patient Comments: TAKE ONE TABLET BY MOUTH TWICE A DAY NEEDED nicotine 21-14-7 mg/24 hr patch, TD daily, sequential See Rx Instructions .ROUTE .COMPLEX Qty: 56 0RF Rx Instructions: apply 1-21 mg NICOTINE PATCH daily for 28 days; follow with 1-14 mg PATCH daily for 14 days, then 1-7mg PATCH daily for 14 days Discontinued varenicline 0.5 mg (11)- 1 mg (42) tablets,dose pack See Rx Instructions PO PER PKG DIR Qty: 53 0RF Rx Instructions: PO PER PKG DIR azithromycin 250 mg tablet See Rx Instructions PO .COMPLEX Qty: 36 0RF Rx Instructions: For 250 mg dose pack: take 500 mg today (day 1), then 250 mg for 4 days (days 2-5) PO prednisone 10 mg tablet 10 mg PO DIRECTED Qty: 72 0RF Rx Instructions: 50 mg/d x 7d, 40 mg/d x 4d, 30 mg/d x 4d, 20 mg/d x 3d, 10 mg/d x 3d, 5 mg/d x 3d Discharge Instructions Instructions: Asthma (DC), How to Stop Smoking (DC), Cigarette Smoking and Your Health (GEN), Hypertension (DC) Additional Instructions: STOP SMOKING!! Do NOT smoke EVER when wearing oxygen Take prednisone until course is completed. You completed your antibiotic course, no need to take more. Have the sleep study done that was ordered in the spring. Follow up with PCP regarding hypertension and medication. Please follow up with Dr Mcginnis Stand Alone Forms: Nursing Discharge Form Referrals: BRYCE SMITH NP [Primary Care Provider] - 05/13/23 3:00 pm (Please follow up with continued hypertension and medication management. Thanks) Cynthia Mcginnis MD [ [facility]IC[facility]] - (next available appointment) Activity:: Activity as Tolerated Equipment/Supplies:: Oxygen (L/min Below) Diet:: Carb Counting Discharge Orders Discharge Orders: Discharge Order (Routine); Ordered 05/06/23 Ordered By: Tiffanie Noriega Discharge Data Discharge Date/Time-TO BE ENTERED AT DEPARTURE: 05/06/23 16:22 Discharge Comment: PCP to manage your blood pressure and medication DS: Summary Time Spent with Patient providing and/or coordinating discharge services: Greater than 30 minutes Status at Discharge Functional status at discharge: independent ambulation Overall status at discharge: patient is back to baseline Mental Status: mental status grossly normal Speech and Movement: speech and movement normal Mood: congruent mood Affect: normal affect Exam Narrative Exam Narrative: GEN: Alert and oriented, pleasant and cooperative. She is not dyspeic sitting up on side of bed and speaking, smiling, stating she feels back to baseline HEENT: Head atraumatic. Conjunctiva clear, no icterus. PEERL, EOMI. no rhinorrhea. MMM, OP benign. Neck is supple with no masses or lymphadenopathy, trachea midline LUNGS: Slight exp wheeze right base, No rales. moving air bilaterally; improved on usual 3 LPM NC CV: RRR with no murmurs, gallops, or rubs. ABD: +BS, soft, NT/ND EXT: no cyanosis, clubbing, or edema MSK: No joint redness or swelling NEURO: CN 2-12 grossly intact. Normal movement of 4 extremities. Normal speech and coordination SKIN: No rashes or open wounds. PSYCH: mood and affect slightly anxious. Normal thought process Psych Mental Status: mental status grossly normal Speech and Movement: speech and movement normal Mood: congruent mood Affect: normal affect DS: Data Vitals/I&O Vitals and I&O: Vital Signs Temperature 36.9 C 05/06/23 11:51 Temperature Source Tympanic 05/06/23 11:51 Pulse 86 05/06/23 12:40 Pulse Rhythm Regular 05/06/23 09:05 Pulse 105 H 05/04/23 16:00 Respiratory Rate 18 05/06/23 11:51 Respiratory Effort Normal 05/06/23 09:05 Respiratory Depth Normal 05/06/23 09:05 Respiratory Pattern Normal 05/06/23 09:05 Blood Pressure 149/92 H 05/06/23 11:51 Blood Pressure Mean 98 05/02/23 22:15 Blood Pressure Position Supine 05/02/23 20:57 Pulse Oximetry 90 L 05/06/23 12:40 Oxygen Delivery Method Nasal Cannula 05/06/23 12:40 Oxygen Flow Rate 3 05/06/23 12:40 Pain Level 0 05/06/23 07:11 Comment Autocuff blood pressure was 174/103 manual I got 200/106 05/05/23 11:32 Intake & Output 05/05/23 05/06/23 05/06/23 23:59 11:59 23:59 Intake Total 650 / 1100 Balance 650 / 1100 Weight 90.8 kg Intake: IV 500 / 500 Oral 150 / 600 Other: Urine Appearance Clear Clear Data Completed and Pending Labs on day of discharge: Labs from last 24 hours 05/06/23 07:05 Sodium 139 Potassium 3.4 L Chloride 101 Carbon Dioxide 35.1 H Anion Gap 2.9 L BUN 16 Creatinine 0.7 Est GFR (CKD-EPI 2020) 106.62 Glucose 78 Calcium 8.1 L Magnesium 1.6 L Preliminary micro results at discharge 05/02/23 21:30 Blood Culture - Preliminary Blood NO GROWTH 72 HOURS 05/02/23 21:08 Blood Culture - Preliminary Blood NO GROWTH 72 HOURS PFSH All Active Problems (Updated 05/07/23 @ 00:17 by ELLEN LEWIS) Shortness of breath (Acute) Acute asthma exacerbation (Acute) Respiratory failure with hypoxia (Acute) Nicotine dependence, cigarettes, uncomplicated (Acute) Recurrent pneumonia (Acute) Asthma (Chronic) Vitamin D deficiency (Acute) Pharyngitis (Acute) Thrush (Acute) Type 2 diabetes mellitus (Chronic) Multifocal pneumonia (Acute) Pneumonia (Acute) Acute bronchitis (Acute) Tobacco abuse (Chronic) Encounter for medication refill (Acute) Medical History Acute asthma exacerbation Acute exacerbation of COPD with asthma Acute pneumonia ADHD Anxiety Bipolar disorder COPD exacerbation H/O suicide attempt Hypertension Hypoxia Non-insulin dependent diabetes mellitus Obesity (BMI 30.0-34.9) Surgical History S/P cholecystectomy Status post bilateral salpingectomy Family History Other Adopted Social History Smoking/Tobacco Use Status: Current every day Tobacco Type: cigarettes Smoking packs per day: 0.25 Smoking cigarettes per day: 5.0 Years smoked: 40 Smoking pack-years: 10.00 Tobacco: How many years used: 40 Smoking risk assessment performed?: Yes Alcohol Intake: never Substance use type: does not use Do you feel safe at home: Yes Do you feel safe in your relationship?: Yes Additional Social history: Lives with on [address] in [facility]. She is disabled with her medical and mental health conditions. 22 year old daughter in [place]. Time Spent with Patient Time Spent with Patient: 70-84 minutes4 Time was spent: preparing to see the patient(eg.review tests), ordering medications,tests, procedures, referring, communicating with other health vision care associate, indepentently interpreting results, counseling the patient and care coordination
[2023-05-06] MEDS: LORazepam 0.5 MG TAB PO (14:49)
[2023-05-06] MEDS: AZITHROMYCIN 250 MG in Normal Saline 250 ML IVPB (14:49)
--- NOTE | 2023-05-06 16:58 | PDOC.CMDIS ---
Date of service: 05/06/23 Time of Service: 16:58 LACE Index Scoring Tool Questions: Length of Stay (in days): 1 Was the patient admitted via the E.D.?: Yes Comorbidities: Diabetes w/o Complication and Chronic Pulmonary Disease E.D. Visits: 6 Answers: Total Score: 11 Risk of Readmission: High Risk Care Management Discharge Plan Reason for Hospitalization: Asthma exacerbation Discharge Plan: Cecilia will return home with no new services. She will follow up with her PCP, supervisor word processing, and plan of care as instructed. She will be transported home via [facility] private mechanic welder truck driver coordinated by CM. Patient/Family Education Needs: Review of discharge instructions including limitations, medications and follow up plan of care; discuss Ask Me Three and self management.
== END 2023-05-06 16:22 | disposition home or self-care (01) | DRG 190 ==
LOC: ER 22:04 → MS 22:31
PROVIDERS: Family Medicine; Internal Medicine; Nurse Practitioner Family; Admitting Provider Family Medicine; Emergency Provider Emergency Medicine; PCP Nurse Practitioner Family; Visit Provider Family Medicine
DX: J44.1 Chronic obstructive pulmonary disease with (acute) exacerbation (principal); J96.01 Acute respiratory failure with hypoxia; I48.92 Unspecified atrial flutter; F17.210 Nicotine dependence, cigarettes, uncomplicated; E11.9 Type 2 diabetes mellitus without complications; I10 Essential (primary) hypertension; F31.9 Bipolar disorder, unspecified; E55.9 Vitamin D deficiency, unspecified; F90.9 Attention-deficit hyperactivity disorder, unspecified type; F41.9 Anxiety disorder, unspecified; E66.9 Obesity, unspecified; Z68.37 Body mass index [BMI] 37.0-37.9, adult; Z79.85 Long-term (current) use of injectable non-insulin antidiabetic drugs
CPT/HCPCS: 36415; 80048; 80053; 82805; 84145; 85027; 87040; 87635; 93005; 94618; 94640; J1650; 71045; 83735; 84484; 85025; 85379; 85610; 85730; 93010; 94664; 94668; 94760; 99232; 99233; 99239; G0378; J0456; J2060; J2930; J3475; J3490; J7512; J7613; J7620

== ENCOUNTER 2023-06-12 20:51 | Emergency (ER) | payer MEDICARE, MEDICAID, SELFPAY ==
[2023-06-12] VITALS (66 sets, daily range): BP systolic 147–165; BP diastolic 71–91; PULSE 81–98; RESP 12–29; TEMP 36.3; O2SAT 89–93
--- NOTE | 2023-06-12 20:30 | RT.EKG_ITS ---
APPROVED REPORT Exam: Resting ECG Reason for Exam: SOB Patient Location: E HR:89 bpm ECG Measurements Heart Rate 89 AXIS MT 124 P 67 QRSd 75 QRS 75 QT 380 T 38 QTc 464 Conclusion Sinus rhythm...normal P axis, V-rate 60- 99 Consider anteroseptal infarct...Q >30mS, dimin R, V1-V2
[2023-06-12 21:00] LABS: BE (Venous) 9 mmol/L (-2-3); HCO3 (Venous) 34 mmol/L (23-28); O2 Sat (Venous) 89 %; TCO2 (Venous) 30 mmol/L (24-29); pCO2 (Venous) 51 mmHg (41-51); pH (Venous) 7.43 (7.31-7.41); pO2 (Venous) 54 mmHg
--- NOTE | 2023-06-12 21:00 | DI.RAD_ITS ---
Exam(s) XR PORTABLE CHEST AP EXAM: XR PORTABLE CHEST AP CLINICAL HISTORY: shortness of breath TECHNIQUE: 2D digital imaging was performed. COMPARISON: CR,XR XR PORTABLE CHEST AP from 05/02/2023 FINDINGS: Exam limited by poor pulmonary inflation and under penetration. LUNGS: Grossly clear. No focal consolidation. No pleural abnormality seen. HEART: Normal size. AORTA: Normal diameter. BONES: Old bilateral rib fractures. Soft tissues: Unremarkable. IMPRESSION: Limited exam due to poor pulmonary inflation. No acute abnormality. DATA REPOSITORY: RADIATION DOSE DELIVERED:
[2023-06-12 21:01] LABS: Abs Immature Grans 0.05 10^3/uL (0.0-0.06); Absolute Basophil Count 0.02 10^3/uL (0.0-0.2); Absolute Eosinophil Count 0.09 10^3/uL (0.0-0.7); Absolute Lymphocyte Count 2.35 10^3/uL (1.2-3.4); Absolute Monocyte Count 0.68 10^3/uL (0.1-0.8); Absolute Neutrophil Count 7.99 10^3/uL (1.2-6.7); Basophils % 0.2; Eosinophils % 0.8; HCT 38.1 % (36.0-46.0); HGB 12.4 g/dL (11.2-15.7); Immature Grans % 0.4; MCH 27.7 pg (27.0-33.0); MCHC 32.5 % (32.0-36.0); MCV 85 fL (80-95); MPV 8.8 fL (8.0-11.0); Monocytes % 6.1; Neutrophils % 71.5; Platelet Count 242 10^3/uL (130-400); RBC 4.47 10^6/uL (3.93-5.22); RDW 17.2 % (11.7-14.6); RDW-SD 54.3 fL; WBC 11.18 10^3/uL (4.4-10.8)
--- NOTE | 2023-06-12 21:02 | W.ED.GENAD ---
Discharge Plan Disposition Patient Disposition: Home Condition: Stable Discharge Details Clinical Impression: Shortness of breath Primary Care Provider: BRYCE SMITH ED Provider: Uriah Blue Home Meds and New Rx's Prescriptions: New levofloxacin 750 mg tablet 750 mg PO DAILY Qty: 5 0RF furosemide [Lasix] 20 mg tablet 20 mg PO DAILY Qty: 14 0RF Continued albuterol sulfate [Proventil HFA] 90 mcg/actuation HFA aerosol inhaler 2 puff inhalation Q6H PRN (Reason: shortness of breath or wheezing) Qty: 8.5 12RF ipratropium-albuterol 0.5 mg-3 mg(2.5 mg base)/3 mL solution for nebulization 3 ml UPD Q4H PRN PRN (Reason: shortness of breath or wheezing) Qty: 540 12RF Dulera 200-5 mcg/actuation HFA aerosol inhaler 2 puff inhalation BID Qty: 13 12RF Rx Instructions: Rinse mouth after use Spiriva Respimat 2.5 mcg/actuation mist 2 puff inhalation DAILY Qty: 4 12RF varenicline 1 mg tablet 1 mg PO BID Qty: 56 5RF Rx Instructions: Start after other start pack (DME) Oxygen Tank See Rx Instructions .Route Qty: 1 0RF Rx Instructions: 2LPM with exertion dextroamphetamine-amphetamine [Adderall] 10 mg tablet 10 mg PO DAILY prazosin 2 mg capsule 2 mg PO HS Patient Comments: TAKE ONE CAPSULE BY MOUTH AT BEDTIME lisinopril 20 mg Tablet 20 mg PO DAILY sertraline [Zoloft] 100 mg Tablet 200 mg PO QAM divalproex [Depakote] 500 mg Tablet,Delayed Release (Dr/Ec) 1,000 mg PO QHS risperidone [Risperdal] 2 mg Tablet 4 mg PO HS melatonin 10 mg Tablet 10 mg PO QHS lorazepam 0.5 mg tablet 1 tab PO BID PRN PRN (Reason: Anxiety) Patient Comments: TAKE ONE TABLET BY MOUTH TWICE A DAY NEEDED FOR ANXIETY Trulicity 3 mg/0.5 mL pen injector 1 device SUBCUT QWEEK Patient Comments: INJECT ONCE WEEKLY DIRECTED amlodipine [Norvasc] 5 mg tablet 5 mg PO DAILY Qty: 30 0RF spironolactone 25 mg Tablet 25 mg PO DAILY Qty: 30 0RF prednisone 10 mg tablet 10 mg PO DAILY Qty: 34 0RF Rx Instructions: Take 40mg (4 tablets) one a day for 4 days, 30mg (3 tablets) once a day for 3 days, 20mg (2 tablets) once a day for 3 days , 10mg (1 tablet) for 2 days, 5mg (0.5 tablets) for 2 days Sore Throat (phenol) 1.4 % Aerosol,[place] 3 spray mucous membrane QID PRN PRNQty: 177 0RF cholecalciferol (vitamin D3) 25 mcg (1,000 unit) tablet 1,000 units PO DAILY ibuprofen 800 mg tablet 800 mg PO BID PRN Patient Comments: TAKE ONE TABLET BY MOUTH TWICE A DAY NEEDED nicotine 21-14-7 mg/24 hr patch, TD daily, sequential See Rx Instructions .ROUTE .COMPLEX Qty: 56 0RF Rx Instructions: apply 1-21 mg NICOTINE PATCH daily for 28 days; follow with 1-14 mg PATCH daily for 14 days, then 1-7mg PATCH daily for 14 days Discharge Instructions Instructions: Dyspnea (ED) Additional Instructions: follow up with your primary care provider within 1 week and discuss if you should continue the lasix if you feel more ill, have worsening shortness of breath or chest pain return to the emergency department Medical Decision Making 47 yo female with oxygen dependent asthma who continues to smoke who comes in with shortness of breath and chest pain worsening throughout the day. She denies fevers, has had a dry cough. She was given a duoneb and solumedrol with ems and feels mildly better. She is on her normal 3 L home o2 and is at 96%. She has wheezing in the bilateral apices and lower lung wilkins, no jvd, no leg swelling or calf tenderness. Suspect asthma exacerbation, will proceed with cbc, cmp, troponin and portable chest xray and treat with another duoneb. She has no evidence of dvt no pleuritic chest pain and is oxygenating well on her usual supplemental oxygen and has no tachycardia so doubt Pe, no tearing back pain to suggest dissection pt sleeping on reassessment and is 97% on her 3L NC awakens easily, labs show mild elevation in probnp which she's had before. She has interstitial infiltrates vs edema on xray. Given her cough will start abx. She has stable vitals, discussed obs admission vs d/c if negative troponin and she prefers d/c with outpatient follow up and has decision making capacity, feel this is reasonable given reassuring vitals and workup. pt stable, second troponin negative, she will follow up with her pcp and return precautions given. Given she had an echo in September showing mildly reduced EF and the interstial prominence will start her on 20mg daily lasix to start in the AM. Differential Diagnosis Differential Diagnosis: asthma, pneumonia, Medical Records Medical records reviewed: Yes I reviewed the patient's medical records. Imaging Data Radiologic Study: Attestation: I personally reviewed and interpreted this imaging study as follows: Imaging: X-Ray Radiologist's impression: PROCEDURE INFORMATION: Exam: XR Chest Exam date and time: 06/12/2023 9:17 PM Age: 47 years old Clinical indication: Shortness of breath TECHNIQUE: Imaging protocol: Radiologic exam of the chest. Views: 1 view. COMPARISON: CR XR PORTABLE CHEST AP 05/02/2023 9:22 PM FINDINGS: Tubes, catheters and devices: Monitoring wires noted. Lungs: Moderate interstitial prominence noted throughout both lungs. No focal consolidation. Pleural spaces: Unremarkable. No pleural effusion. No pneumothorax. Heart/Mediastinum: Mild cardiomegaly. Bones/joints: Old fractures are observed in the ribs bilaterally. IMPRESSION: Interstitial infiltrates and/or edema. Lab Data Lab results reviewed: Yes I reviewed the patient's lab results. ECG Data Attestation: I personally reviewed and interpreted this ECG (s) as follows: Prior ECG tracings: available for review Interpretation: sinus rate of 89 pr 124 no significant changes from prior ekg HPI General Mode of arrival: EMS. Date/Time Provider Initiated Documentation: 06/12/23 20:53. Limitations to Documentation: no limitations. Information obtained by: patient. History of Present Illness 47 year old F presents to the emergency department with the chief complaint of shortness of breath, described as moderate, Patient started experiencing this day(s) (1) and it has been constant. No relieving factors improve symptom(s), No exacerbating factors reported . Patient notes chest pain. Patient did receive the following treatments prior to arrival, none Related Data Home Medications Medication Instructions Recorded Confirmed divalproex 500 mg tablet,delayed 1,000 mg PO QHS 01/18/20 06/12/23 release (Depakote) lisinopril 20 mg tablet 20 mg PO DAILY 01/18/20 06/12/23 melatonin 10 mg tablet 10 mg PO QHS 01/18/20 06/12/23 risperidone 2 mg tablet (Risperdal) 4 mg PO HS 01/18/20 06/12/23 sertraline 100 mg tablet (Zoloft) 200 mg PO QAM 01/18/20 06/12/23 dulaglutide 3 mg/0.5 mL 1 device subcut QWEEK 10/10/22 06/12/23 subcutaneous pen injector (Trulicity) lorazepam 0.5 mg tablet 1 tab PO BID PRN PRN Anxiety 10/10/22 05/02/23 amlodipine 5 mg tablet (Norvasc) 5 mg PO DAILY #30 tabs 10/31/22 06/12/23 phenol 1.4 % mucosal aerosol spray 3 spray mucous membrane QID PRN 11/08/22 05/02/23 (Sore Throat (phenol)) PRN #177 mL cholecalciferol (vitamin D3) 25 1,000 units PO DAILY 11/18/22 06/12/23 mcg (1,000 unit) tablet ibuprofen 800 mg tablet 800 mg PO BID PRN 11/20/22 06/12/23 nicotine See Rx Instructions transdermal 11/21/22 06/12/23 21mg/24hr-14mg/24hr-7mg/24hr daily .COMPLEX #56 patches transderm patches,sequentl prazosin 2 mg capsule 2 mg PO HS 11/21/22 06/12/23 Oxygen #1 ea 12/13/22 05/02/23 albuterol sulfate 90 mcg/actuation 2 puff inhalation Q6H PRN 12/13/22 06/12/23 aerosol inhaler (Proventil HFA) shortness of breath or wheezing #8.5 grams ipratropium 0.5 mg-albuterol 3 mg 3 ml UPD Q4H PRN PRN shortness of 12/13/22 06/12/23 (2.5 mg base)/3 mL nebulization breath or wheezing #540 mL soln mometasone-formoterol HFA 200 2 puff inhalation BID #13 grams 12/13/22 06/12/23 mcg-5 mcg/actuation aerosol inhaler (Dulera) tiotropium bromide 2.5 2 puff inhalation DAILY #4 grams 12/13/22 06/12/23 mcg/actuation mist for inhalation (Spiriva Respimat) varenicline 1 mg tablet 1 mg PO BID #56 tabs 12/13/22 06/12/23 dextroamphetamine-amphetamine 10 10 mg PO DAILY 03/31/23 06/12/23 mg tablet (Adderall) prednisone 10 mg tablet 10 mg PO DAILY #34 tabs 05/06/23 06/12/23 spironolactone 25 mg tablet 25 mg PO DAILY #30 tabs 05/06/23 06/12/23 furosemide 20 mg tablet (Lasix) 20 mg PO DAILY #14 tabs 06/13/23 levofloxacin 750 mg tablet 750 mg PO DAILY #5 tabs 06/13/23 Previous Rx's Medication Instructions Recorded amlodipine 5 mg tablet (Norvasc) 5 mg PO DAILY #30 tabs 10/31/22 phenol 1.4 % mucosal aerosol spray 3 spray mucous membrane QID PRN 11/08/22 (Sore Throat (phenol)) PRN #177 mL nicotine See Rx Instructions transdermal 11/21/22 21mg/24hr-14mg/24hr-7mg/24hr daily .COMPLEX #56 patches transderm patches,sequentl Oxygen #1 ea 12/13/22 albuterol sulfate 90 mcg/actuation 2 puff inhalation Q6H PRN 12/13/22 aerosol inhaler (Proventil HFA) shortness of breath or wheezing #8.5 grams ipratropium 0.5 mg-albuterol 3 mg 3 ml UPD Q4H PRN PRN shortness of 12/13/22 (2.5 mg base)/3 mL nebulization breath or wheezing #540 mL soln mometasone-formoterol HFA 200 2 puff inhalation BID #13 grams 12/13/22 mcg-5 mcg/actuation aerosol inhaler (Dulera) tiotropium bromide 2.5 2 puff inhalation DAILY #4 grams 12/13/22 mcg/actuation mist for inhalation (Spiriva Respimat) varenicline 1 mg tablet 1 mg PO BID #56 tabs 12/13/22 prednisone 10 mg tablet 10 mg PO DAILY #34 tabs 05/06/23 spironolactone 25 mg tablet 25 mg PO DAILY #30 tabs 05/06/23 furosemide 20 mg tablet (Lasix) 20 mg PO DAILY #14 tabs 06/13/23 levofloxacin 750 mg tablet 750 mg PO DAILY #5 tabs 06/13/23 Allergies Allergy/AdvReac Type Severity Reaction Status Date / Time amoxicillin Allergy Nausea Unverified 06/12/23 20:49 bee pollen Allergy Hives Unverified 06/12/23 20:49 fluoxetine [From Prozac] Allergy Nausea Unverified 06/12/23 20:49 hazelnut Allergy Hives Unverified 06/12/23 20:49 peanut Allergy Unverified 06/12/23 20:49 tree nut Allergy Unverified 06/12/23 20:49 abelox Allergy Hives Uncoded 06/12/23 20:49 General Stated Complaint: SOB ZACK: 2 Review of Systems All systems reviewed & are unremarkable except as noted in HPI and below Constitutional Constitutional: Denies chills, Denies fever(s) and Denies weakness Cardiovascular Cardiovascular: Reports chest pain and Reports dyspnea Respiratory Respiratory: Reports cough and Reports dyspnea Gastrointestinal Gastrointestinal: Denies abdominal pain, Denies nausea and Denies vomiting Genitourinary Genitourinary: Denies dysuria Musculoskeletal Musculoskeletal: Denies joint swelling Integumentary/Breasts Skin/Breast: Denies rash Neurologic Neurologic: Denies weakness Psychiatric Psychiatric: Denies depression Endocrine Endocrine: Denies cold intolerance and Denies heat intolerance Allergic/Immunologic Allergic/Immunologic: Denies urticaria PFSH All Active Problems (Updated 06/13/23 @ 00:14 by Uriah Blue MD) Shortness of breath (Acute) Shortness of breath (Acute) Acute asthma exacerbation (Acute) Respiratory failure with hypoxia (Acute) Nicotine dependence, cigarettes, uncomplicated (Acute) Recurrent pneumonia (Acute) Asthma (Chronic) Vitamin D deficiency (Acute) Pharyngitis (Acute) Thrush (Acute) Type 2 diabetes mellitus (Chronic) Multifocal pneumonia (Acute) Pneumonia (Acute) Acute bronchitis (Acute) Tobacco abuse (Chronic) Encounter for medication refill (Acute) Medical History Acute asthma exacerbation Acute exacerbation of COPD with asthma Acute pneumonia ADHD Anxiety Bipolar disorder COPD exacerbation H/O suicide attempt Hypertension Hypoxia Non-insulin dependent diabetes mellitus Obesity (BMI 30.0-34.9) Surgical History S/P cholecystectomy Status post bilateral salpingectomy Family History Other Adopted Social History Smoking/Tobacco Use Status: Current every day Tobacco Type: cigarettes Smoking packs per day: 0.25 Smoking cigarettes per day: 5.0 Years smoked: 40 Smoking pack-years: 10.00 Tobacco: How many years used: 40 Smoking risk assessment performed?: Yes Alcohol Intake: never Substance use type: does not use Do you feel safe at home: Yes Do you feel safe in your relationship?: Yes Additional Social history: Lives with on [address] in [facility]. She is disabled with her medical and mental health conditions. 22 year old daughter in [place]. Exam Const General: no acute distress Orientation: alert HENMT Head: normal to inspection Ears: external ears normal General nose exam: external nose normal Mouth: moist mucous membranes Eyes General: appearance normal, both eyes and all related structures Neck Neck: normal visual inspection Resp Effort & Inspection: normal respiratory effort and able to speak in complete sentences Auscultation: wheezes Cardio Jugular venous pressure: no JVD Rate: regular rate Heart Sounds: no murmurs Skin General skin exam: no rashes or lesions noted Neuro General: patient alert and patient oriented x3 Extrem General: normal to inspection Psych Mental Status: mental status grossly normal Course Vital Signs Vital signs: Vital Signs Temperature 36.3 C L 06/12/23 20:43 Pulse 90 06/12/23 20:43 Respiratory Rate 13 06/12/23 20:43 Blood Pressure 158/91 H 06/12/23 20:43 Pulse Oximetry 89 L 06/12/23 20:43 Temperature 36.3 C L 06/12/23 20:43 Temperature Source Temporal Artery Scan 06/12/23 20:43 Pulse 90 06/12/23 20:43 Respiratory Rate 13 06/12/23 20:43 Respiratory Effort Short of Breath 06/12/23 20:43 Blood Pressure 158/91 H 06/12/23 20:43 Pulse Oximetry 89 L 06/12/23 20:43 Oxygen Delivery Method Room Air 06/12/23 20:43 Oxygen Flow Rate 0 06/12/23 20:43 Pain Level 8 06/12/23 20:43 Lab/Test Results Lab/Test Results: 06/12/23 20:43 Blood Blood Culture - Pending 06/12/23 20:43 Blood Blood Culture - Pending Laboratory Tests Range/Units 06/12/23 20:52 VBG pH (7.31-7.41) 7.43 H VBG pCO2 (41-51) mmHg 51 VBG pO2 mmHg 54 VBG HCO3 (23-28) mmol/L 34 H VBG Total CO2 (24-29) mmol/L 30 H VBG O2 Saturation % 89 VBG Base Excess (-2-3) mmol/L 9 H
[2023-06-12] MEDS: Albuterol/Ipratropium 3 ML UPD VIAL UPD (21:15)
[2023-06-12 21:16] LABS: INR 0.9 (0.9-1.1); PTT Activated 27.1 sec (21.5-31.9); Prothrombin Time 9.1 sec (9.3-11.0)
[2023-06-12 21:26] LABS: ALT 11 U/L (14-59); AST 11 U/L (15-37); Albumin 3.1 g/dL (3.4-5.0); Alkaline Phosphatase 82 U/L (46-116); Anion Gap 5.9 mmol/L (3-11); BUN 18 mg/dL (7-18); Bilirubin, Total 0.2 mg/dL (0.2-1.0); CO2 32.1 mmol/L (21.0-32.0); CREATININE 1.2 mg/dL (0.55-1.02); Calcium 8.9 mg/dL (8.5-10.1); Chloride 104 mmol/L (98-107); Estimated GFR 55.84 (mL/min/1.73m2); Glucose 129 mg/dL (74-106); Magnesium 1.7 mg/dL (1.8-2.4); NT-proBNP 1272 pg/mL (<300); Potassium 3.9 mmol/L (3.5-5.1); Sodium 142 mmol/L (136-145); Total Protein 7.3 g/dL (6.4-8.2); Troponin I < 50 ng/L (<or=60)
[2023-06-12 21:42] LABS: COVID-19 PCR Negative (Negative); Influenza A PCR Negative (Negative); Influenza B PCR Negative (Negative); RSV PCR Negative (Negative); Source Nasopharynx
--- NOTE | 2023-06-12 21:50 | DI.VRAD_ITS ---
PROCEDURE INFORMATION: Exam: XR Chest Exam date and time: 06/12/2023 9:17 PM Age: 47 years old Clinical indication: Shortness of breath TECHNIQUE: Imaging protocol: Radiologic exam of the chest. Views: 1 view. COMPARISON: CR XR PORTABLE CHEST AP 05/02/2023 9:22 PM FINDINGS: Tubes, catheters and devices: Monitoring wires noted. Lungs: Moderate interstitial prominence noted throughout both lungs. No focal consolidation. Pleural spaces: Unremarkable. No pleural effusion. No pneumothorax. Heart/Mediastinum: Mild cardiomegaly. Bones/joints: Old fractures are observed in the ribs bilaterally. IMPRESSION: Interstitial infiltrates and/or edema. Dictated and Authenticated by: Uriah Starks MD. Ordering:YOLANDA Kruse MD
--- NOTE | 2023-06-12 21:54 | NUR.NOTE ---
Nursing Note: report to Olga Lidia WRIGHT
[2023-06-12] MEDS: levoFLOXacin 500 MG, levoFLOXacin 250 MG 750 MG PO (23:25)
[2023-06-12 23:58] LABS: Troponin I < 50 ng/L (<or=60)
--- NOTE | 2023-06-13 03:30 | NUR.NOTE ---
does not have a ride home. will sleep in rm [address], call rct in am. does not have oxygen for trip home, states she can do without it for the 10 minute ride home.Nursing Note:
[2023-06-13 06:03] VITALS: BP 150/71; PULSE 82; RESP 13; TEMP 36.3; O2SAT 93
== END 2023-06-13 06:03 | disposition home or self-care (01) ==
PROVIDERS: Emergency Provider Emergency Medicine; PCP Nurse Practitioner Family
DX: J45.901 Unspecified asthma with (acute) exacerbation (principal); R07.89 Other chest pain; Z99.81 Dependence on supplemental oxygen; F17.210 Nicotine dependence, cigarettes, uncomplicated
CPT/HCPCS: 80053; 82805; 87040; 87637; 93005; 99285; 71045; 83735; 83880; 84484; 85025; 85610; 85730; 93010; 99284; J7620

== ENCOUNTER 2023-08-06 17:50 | Emergency (ER) | payer MEDICARE, MEDICAID, SELFPAY ==
[2023-08-06] VITALS (24 sets, daily range): BP systolic 99–227; BP diastolic 44–109; PULSE 82–103; RESP 0–31; O2SAT 78–98
--- NOTE | 2023-08-06 17:45 | RT.EKG_ITS ---
APPROVED REPORT Exam: Resting ECG Reason for Exam: SOB Patient Location: E HR:91 bpm ECG Measurements Heart Rate 91 AXIS IL 131 P 71 QRSd 78 QRS 90 QT 361 T 57 QTc 444 Conclusion Sinus rhythm...normal P axis, V-rate 60- 99 Anteroseptal infarct, old...Q >40mS, V1-V2 sinus rhtyhm, normal axis, normal intervals, non ischemic
--- NOTE | 2023-08-06 17:45 | DI.RAD_ITS ---
Exam(s) XR PORTABLE CHEST AP EXAM: XR PORTABLE CHEST AP CLINICAL HISTORY: sob, wheeze, hx copd asthma TECHNIQUE: 2D digital imaging was performed. COMPARISON: CR XR PORTABLE CHEST AP from 11/15/2022 CR,XR XR PORTABLE CHEST AP from 11/18/2022 CR,XR XR PORTABLE CHEST AP from 02/09/[address] CHEST WO from 02/11/2023 CR,XR XR PORTABLE CHEST AP from 05/02/2023 CR,XR XR PORTABLE CHEST AP from 06/12/2023 FINDINGS: Suboptimal exam due to poor pulmonary inflation LUNGS: No gross area of consolidation. No pleural abnormality seen. HEART: Difficult to evaluate due to poor pulmonary inflation and portable technique. AORTA: Normal diameter. BONES: Old bilateral rib fractures. Soft tissues: Unremarkable. IMPRESSION: Limited exam. No gross evidence of an acute abnormality. DATA REPOSITORY: RADIATION DOSE DELIVERED:
--- NOTE | 2023-08-06 18:02 | W.ED.GENAD ---
Discharge Plan Disposition Patient Disposition: Home Condition: Improving Discharge Details Chief Complaint: RespSymp Clinical Impression: COPD exacerbation, Edema Primary Care Provider: BRYCE SMITH ED Provider: Mono Rush Home Meds and New Rx's Prescriptions: No Action albuterol sulfate [Proventil HFA] 90 mcg/actuation HFA aerosol inhaler 2 puff inhalation Q6H PRN (Reason: shortness of breath or wheezing) Qty: 8.5 12RF ipratropium-albuterol 0.5 mg-3 mg(2.5 mg base)/3 mL solution for nebulization 3 ml UPD Q4H PRN PRN (Reason: shortness of breath or wheezing) Qty: 540 12RF Dulera 200-5 mcg/actuation HFA aerosol inhaler 2 puff inhalation BID Qty: 13 12RF Rx Instructions: Rinse mouth after use Spiriva Respimat 2.5 mcg/actuation mist 2 puff inhalation DAILY Qty: 4 12RF varenicline 1 mg tablet 1 mg PO BID Qty: 56 5RF Rx Instructions: Start after other start pack (DME) Oxygen Tank See Rx Instructions .Route Qty: 1 0RF Rx Instructions: 2LPM with exertion dextroamphetamine-amphetamine [Adderall] 10 mg tablet 10 mg PO DAILY prazosin 2 mg capsule 2 mg PO HS Patient Comments: TAKE ONE CAPSULE BY MOUTH AT BEDTIME lisinopril 20 mg Tablet 20 mg PO DAILY sertraline [Zoloft] 100 mg Tablet 200 mg PO QAM divalproex [Depakote] 500 mg Tablet,Delayed Release (Dr/Ec) 1,000 mg PO QHS risperidone [Risperdal] 2 mg Tablet 4 mg PO HS melatonin 10 mg Tablet 10 mg PO QHS lorazepam 0.5 mg tablet 1 tab PO BID PRN PRN (Reason: Anxiety) Patient Comments: TAKE ONE TABLET BY MOUTH TWICE A DAY NEEDED FOR ANXIETY Trulicity 3 mg/0.5 mL pen injector 1 device SUBCUT QWEEK Patient Comments: INJECT ONCE WEEKLY DIRECTED amlodipine [Norvasc] 5 mg tablet 5 mg PO DAILY Qty: 30 0RF spironolactone 25 mg Tablet 25 mg PO DAILY Qty: 30 0RF prednisone 10 mg tablet 10 mg PO DAILY Qty: 34 0RF Rx Instructions: Take 40mg (4 tablets) one a day for 4 days, 30mg (3 tablets) once a day for 3 days, 20mg (2 tablets) once a day for 3 days , 10mg (1 tablet) for 2 days, 5mg (0.5 tablets) for 2 days Sore Throat (phenol) 1.4 % Aerosol,[place] 3 spray mucous membrane QID PRN PRNQty: 177 0RF cholecalciferol (vitamin D3) 25 mcg (1,000 unit) tablet 1,000 units PO DAILY ibuprofen 800 mg tablet 800 mg PO BID PRN Patient Comments: TAKE ONE TABLET BY MOUTH TWICE A DAY NEEDED nicotine 21-14-7 mg/24 hr patch, TD daily, sequential See Rx Instructions .ROUTE .COMPLEX Qty: 56 0RF Rx Instructions: apply 1-21 mg NICOTINE PATCH daily for 28 days; follow with 1-14 mg PATCH daily for 14 days, then 1-7mg PATCH daily for 14 days levofloxacin 750 mg tablet 750 mg PO DAILY Qty: 5 0RF furosemide [Lasix] 20 mg tablet 20 mg PO DAILY Qty: 14 0RF Discharge Instructions Instructions: COPD (Chronic Obstructive Pulmonary Disease) (ED) Medical Decision Making 47-year-old female history of diabetes COPD asthma, presents with shortness of breath and wheezing, on 3 L nasal cannula at home, bilateral expiratory wheeze on examination, bilateral ankle edema on examination as well, noted to be hypertense, denies history of coronary disease or CHF, consider COPD exacerbation versus asthma exacerbation versus new CHF versus ACS lower suspicion for PE was also consider pneumonia or viral illness. Will obtain labs imaging including chest x-ray, EKG, nebs, dexamethasone, trial of Lasix and nitro. Close reassessment of symptoms 20: 44 patient resting only feeling much better after medications. Awaiting second troponin. 22: 01 patient was comfortably feeling much better. HPI General Date/Time Provider Initiated Documentation: 08/06/23 17:54. HPI Narrative: 47-year-old female history of asthma, COPD presents with shortness of breath and wheezing, also has noticed bilateral lower leg swelling. Denies history of CHF or coronary artery disease. Related Data Home Medications Medication Instructions Recorded Confirmed divalproex 500 mg tablet,delayed 1,000 mg PO QHS 01/18/20 06/12/23 release (Depakote) lisinopril 20 mg tablet 20 mg PO DAILY 01/18/20 06/12/23 melatonin 10 mg tablet 10 mg PO QHS 01/18/20 06/12/23 risperidone 2 mg tablet (Risperdal) 4 mg PO HS 01/18/20 06/12/23 sertraline 100 mg tablet (Zoloft) 200 mg PO QAM 01/18/20 06/12/23 dulaglutide 3 mg/0.5 mL 1 device subcut QWEEK 10/10/22 06/12/23 subcutaneous pen injector (Trulicity) lorazepam 0.5 mg tablet 1 tab PO BID PRN PRN Anxiety 10/10/22 05/02/23 amlodipine 5 mg tablet (Norvasc) 5 mg PO DAILY #30 tabs 10/31/22 06/12/23 phenol 1.4 % mucosal aerosol spray 3 spray mucous membrane QID PRN 11/08/22 05/02/23 (Sore Throat (phenol)) PRN #177 mL cholecalciferol (vitamin D3) 25 1,000 units PO DAILY 11/18/22 06/12/23 mcg (1,000 unit) tablet ibuprofen 800 mg tablet 800 mg PO BID PRN 11/20/22 06/12/23 nicotine See Rx Instructions transdermal 11/21/22 06/12/23 21mg/24hr-14mg/24hr-7mg/24hr daily .COMPLEX #56 patches transderm patches,sequentl prazosin 2 mg capsule 2 mg PO HS 11/21/22 06/12/23 Oxygen #1 ea 12/13/22 05/02/23 albuterol sulfate 90 mcg/actuation 2 puff inhalation Q6H PRN 12/13/22 06/12/23 aerosol inhaler (Proventil HFA) shortness of breath or wheezing #8.5 grams ipratropium 0.5 mg-albuterol 3 mg 3 ml UPD Q4H PRN PRN shortness of 12/13/22 06/12/23 (2.5 mg base)/3 mL nebulization breath or wheezing #540 mL soln mometasone-formoterol HFA 200 2 puff inhalation BID #13 grams 12/13/22 06/12/23 mcg-5 mcg/actuation aerosol inhaler (Dulera) tiotropium bromide 2.5 2 puff inhalation DAILY #4 grams 12/13/22 06/12/23 mcg/actuation mist for inhalation (Spiriva Respimat) varenicline 1 mg tablet 1 mg PO BID #56 tabs 12/13/22 06/12/23 dextroamphetamine-amphetamine 10 10 mg PO DAILY 03/31/23 06/12/23 mg tablet (Adderall) prednisone 10 mg tablet 10 mg PO DAILY #34 tabs 05/06/23 06/12/23 spironolactone 25 mg tablet 25 mg PO DAILY #30 tabs 05/06/23 06/12/23 furosemide 20 mg tablet (Lasix) 20 mg PO DAILY #14 tabs 06/13/23 levofloxacin 750 mg tablet 750 mg PO DAILY #5 tabs 06/13/23 Previous Rx's Medication Instructions Recorded amlodipine 5 mg tablet (Norvasc) 5 mg PO DAILY #30 tabs 10/31/22 phenol 1.4 % mucosal aerosol spray 3 spray mucous membrane QID PRN 11/08/22 (Sore Throat (phenol)) PRN #177 mL nicotine See Rx Instructions transdermal 11/21/22 21mg/24hr-14mg/24hr-7mg/24hr daily .COMPLEX #56 patches transderm patches,sequentl Oxygen #1 ea 12/13/22 albuterol sulfate 90 mcg/actuation 2 puff inhalation Q6H PRN 12/13/22 aerosol inhaler (Proventil HFA) shortness of breath or wheezing #8.5 grams ipratropium 0.5 mg-albuterol 3 mg 3 ml UPD Q4H PRN PRN shortness of 12/13/22 (2.5 mg base)/3 mL nebulization breath or wheezing #540 mL soln mometasone-formoterol HFA 200 2 puff inhalation BID #13 grams 12/13/22 mcg-5 mcg/actuation aerosol inhaler (Dulera) tiotropium bromide 2.5 2 puff inhalation DAILY #4 grams 12/13/22 mcg/actuation mist for inhalation (Spiriva Respimat) varenicline 1 mg tablet 1 mg PO BID #56 tabs 12/13/22 prednisone 10 mg tablet 10 mg PO DAILY #34 tabs 05/06/23 spironolactone 25 mg tablet 25 mg PO DAILY #30 tabs 05/06/23 furosemide 20 mg tablet (Lasix) 20 mg PO DAILY #14 tabs 06/13/23 levofloxacin 750 mg tablet 750 mg PO DAILY #5 tabs 06/13/23 Allergies Allergy/AdvReac Type Severity Reaction Status Date / Time bee pollen Allergy Hives Unverified 06/12/23 20:49 hazelnut Allergy Hives Unverified 06/12/23 20:49 peanut Allergy Unverified 06/12/23 20:49 tree nut Allergy Unverified 06/12/23 20:49 amoxicillin AdvReac Nausea Unverified 06/13/23 07:16 fluoxetine [From Prozac] AdvReac Nausea Unverified 06/13/23 07:16 abelox Allergy Hives Uncoded 06/12/23 20:49 General Stated Complaint: RespSymp ZACK: 2 Review of Systems Narrative: Review of Systems Constitutional: negative Eyes: negative ENT: negative Cardiovascular: negative Respiratory: Shortness of breath Gastrointestinal: negative : negative Musculoskeletal: negative Skin: negative Neurologic: negative Psych: negative PFSH All Active Problems (Updated 08/06/23 @ 22:03 by Mono Rush MD) COPD exacerbation (Acute) Edema (Acute) Shortness of breath (Acute) Acute asthma exacerbation (Acute) Respiratory failure with hypoxia (Acute) Nicotine dependence, cigarettes, uncomplicated (Acute) Recurrent pneumonia (Acute) Asthma (Chronic) Vitamin D deficiency (Acute) Pharyngitis (Acute) Thrush (Acute) Type 2 diabetes mellitus (Chronic) Multifocal pneumonia (Acute) Pneumonia (Acute) Acute bronchitis (Acute) Tobacco abuse (Chronic) Encounter for medication refill (Acute) Medical History Acute asthma exacerbation Acute exacerbation of COPD with asthma Acute pneumonia ADHD Anxiety Bipolar disorder COPD exacerbation H/O suicide attempt Hypertension Hypoxia Non-insulin dependent diabetes mellitus Obesity (BMI 30.0-34.9) Surgical History S/P cholecystectomy Status post bilateral salpingectomy Family History Other Adopted Social History Smoking/Tobacco Use Status: Current every day Tobacco Type: cigarettes Smoking packs per day: 0.25 Smoking cigarettes per day: 5.0 Years smoked: 40 Smoking pack-years: 10.00 Tobacco: How many years used: 40 Smoking risk assessment performed?: Yes Alcohol Intake: never Drug use: Never Substance use type: does not use Do you feel safe at home: Yes Do you feel safe in your relationship?: Yes Additional Social history: Lives with on [address] in [facility]. She is disabled with her medical and mental health conditions. 22 year old daughter in [place]. Exam Narrative Exam Narrative: Physical Examination General: alert, awake, cooperative, appears uncomfortable HEENT: normocephalic, atraumatic; PERRL, EOM intact, conjunctiva normal; no nasal discharge; moist mucous membranes, oral and pharyngeal mucosa normal, tolerating secretions Neck: supple, trachea midline; full ROM Chest: normal to inspection Respiratory: Bilateral expiratory wheeze Cardiac: regular rate, regular rhythm, S1S2 intact, no murmurs rubs or gallops GI: abdomen soft, non-tender, non-distended; no palpable mass or hepatosplenomegaly Skin: no lesions, rashes or trauma appreciated Neuro: AAOx3, normal speech, moving all extremities Extremities: Edema to bilateral ankles Psych: Appropriate mood and affect Course Vital Signs Vital signs: Vital Signs Pulse 96 H 08/06/23 17:56 Respiratory Rate 30 H 08/06/23 17:56 Blood Pressure 227/109 H 08/06/23 17:56 Pulse Oximetry 92 08/06/23 17:56 Pulse 96 H 08/06/23 17:56 Respiratory Rate 30 H 08/06/23 17:56 Blood Pressure 227/109 H 08/06/23 17:56 Blood Pressure Position Sitting 08/06/23 17:56 Pulse Oximetry 92 08/06/23 17:56 Oxygen Delivery Method Nasal Cannula 08/06/23 17:56 Oxygen Flow Rate 4 08/06/23 17:56 Pain Level 0 08/06/23 17:56
[2023-08-06 18:28] LABS: Abs Immature Grans 0.04 10^3/uL (0.0-0.06); Absolute Basophil Count 0.02 10^3/uL (0.0-0.2); Absolute Eosinophil Count 0.12 10^3/uL (0.0-0.7); Absolute Lymphocyte Count 2.44 10^3/uL (1.2-3.4); Absolute Monocyte Count 0.59 10^3/uL (0.1-0.8); Absolute Neutrophil Count 6.32 10^3/uL (1.2-6.7); Basophils % 0.2; Eosinophils % 1.3; HCT 43.6 % (36.0-46.0); HGB 13.5 g/dL (11.2-15.7); Immature Grans % 0.4; Lymphocytes % 25.6; MCH 26.6 pg (27.0-33.0); MCV 86 fL (80-95); Monocytes % 6.2; Neutrophils % 66.3; Platelet Count 197 10^3/uL (130-400); RBC 5.07 10^6/uL (3.93-5.22); RDW 15.8 % (11.7-14.6); RDW-SD 49.2 fL; WBC 9.53 10^3/uL (4.4-10.8)
[2023-08-06] MEDS: Albuterol/Ipratropium 3 ML UPD VIAL 9 ML UPD (18:32)
[2023-08-06] MEDS: Aspirin 81 MG CHEW 324 MG CH (18:32)
[2023-08-06] MEDS: Dexamethasone 10 MG/ML VIAL IVP (18:33)
[2023-08-06] MEDS: Furosemide 40 MG/4 ML VIAL IVP (18:33)
[2023-08-06] MEDS: nitroGLYcerin 0.4 MG TAB SL (18:33)
[2023-08-06 18:56] LABS: ALT 8 U/L (14-59); AST 14 U/L (15-37); Albumin 2.8 g/dL (3.4-5.0); Alkaline Phosphatase 87 U/L (46-116); Anion Gap 3.1 mmol/L (3-11); BUN 6 mg/dL (7-18); Bilirubin, Total 0.3 mg/dL (0.2-1.0); CO2 35.9 mmol/L (21.0-32.0); CREATININE 0.7 mg/dL (0.55-1.02); Calcium 8.9 mg/dL (8.5-10.1); Chloride 99 mmol/L (98-107); Estimated GFR 106.62 (mL/min/1.73m2); Glucose 114 mg/dL (74-106); NT-proBNP 5534 pg/mL (<300); Sodium 138 mmol/L (136-145); TSH (W/Ref FT4) 3.08 uIU/mL (0.36-3.74); Total Protein 7.6 g/dL (6.4-8.2)
[2023-08-06 19:02] LABS: COVID-19 PCR Negative (Negative); Influenza A PCR Negative (Negative); Influenza B PCR Negative (Negative); RSV PCR Negative (Negative)
[2023-08-06 19:04] LABS: Troponin I 70 ng/L (<or=60)
[2023-08-06 19:06] LABS: Source NASOPHARYNX
[2023-08-06 21:50] LABS: Troponin I 60 ng/L (<or=60)
== END 2023-08-06 23:38 | disposition home or self-care (01) ==
PROVIDERS: Emergency Provider Emergency Medicine; PCP Nurse Practitioner Family
DX: J44.1 Chronic obstructive pulmonary disease with (acute) exacerbation (principal); R22.43 Localized swelling, mass and lump, lower limb, bilateral; Z99.81 Dependence on supplemental oxygen; F17.210 Nicotine dependence, cigarettes, uncomplicated; Z20.822 Contact with and (suspected) exposure to COVID-19
CPT/HCPCS: 80053; 87426; 87637; 93005; 94640; 96374; 96375; 99285; 71045; 83880; 84443; 84484; 85025; 93010; 99284; J1100; J1940; J7620

== ENCOUNTER → 2023-09-12 10:41 | Outpatient (BNVA) | payer MEDICARE, MEDICAID, SELFPAY | PROVIDERS: PCP Nurse Practitioner Family; Referring Provider Nurse Practitioner Family; Visit Provider Student in an Organized Health Care Education/Training Program | DX: J96.91 Respiratory failure, unspecified with hypoxia; J96.92 Respiratory failure, unspecified with hypercapnia | CPT/HCPCS: 76604; 94618; 99214 ==

== ENCOUNTER 2023-09-22 15:53 | Outpatient (REF) | payer MEDICARE, MEDICAID, SELFPAY ==
[2023-09-22 16:18] LABS: Abs Immature Grans 0.05 10^3/uL (0.0-0.06); Absolute Basophil Count 0.02 10^3/uL (0.0-0.2); Absolute Eosinophil Count 0.05 10^3/uL (0.0-0.7); Absolute Lymphocyte Count 1.85 10^3/uL (1.2-3.4); Absolute Monocyte Count 0.52 10^3/uL (0.1-0.8); Absolute Neutrophil Count 9.44 10^3/uL (1.2-6.7); Basophils % 0.2; Eosinophils % 0.4; HCT 42.4 % (36.0-46.0); HGB 13.5 g/dL (11.2-15.7); Immature Grans % 0.4; Lymphocytes % 15.5; MCH 26.5 pg (27.0-33.0); MCHC 31.8 % (32.0-36.0); MCV 83 fL (80-95); MPV 10.1 fL (8.0-11.0); Monocytes % 4.4; Neutrophils % 79.1; Platelet Count 219 10^3/uL (130-400); RBC 5.09 10^6/uL (3.93-5.22); RDW 17.7 % (11.7-14.6); RDW-SD 53.4 fL; WBC 11.93 10^3/uL (4.4-10.8)
[2023-09-22 16:49] LABS: ALT 11 U/L (14-59); AST 19 U/L (15-37); Albumin 2.8 g/dL (3.4-5.0); Alkaline Phosphatase 80 U/L (46-116); Anion Gap 7.6 mmol/L (3-11); BUN 22 mg/dL (7-18); Bilirubin, Total 0.1 mg/dL (0.2-1.0); CO2 27.4 mmol/L (21.0-32.0); CREATININE 0.6 mg/dL (0.55-1.02); Calcium 9.4 mg/dL (8.5-10.1); Chloride 102 mmol/L (98-107); Estimated GFR 110.65 (mL/min/1.73m2); Glucose 114 mg/dL (74-106); NT-proBNP 4846 pg/mL (<300); Potassium 4.5 mmol/L (3.5-5.1); Sodium 137 mmol/L (136-145); Total Protein 7.5 g/dL (6.4-8.2)
== END 2023-09-22 15:54 | disposition home or self-care (01) ==
LOC: NCHCN 15:53
PROVIDERS: PCP Nurse Practitioner Family; Visit Provider Nurse Practitioner Family
DX: I50.9 Heart failure, unspecified (principal); I11.0 Hypertensive heart disease with heart failure; Z00.00 Encounter for general adult medical examination without abnormal findings; R60.9 Edema, unspecified; J44.9 Chronic obstructive pulmonary disease, unspecified; E11.9 Type 2 diabetes mellitus without complications; E11.22 Type 2 diabetes mellitus with diabetic chronic kidney disease
CPT/HCPCS: 80053; 83880; 85025

== ENCOUNTER 2023-11-20 20:07 | Outpatient (REF) | payer MEDICARE, MEDICAID, SELFPAY ==
[2023-11-20 21:34] LABS: Source Nasal/Nares
[2023-11-20 22:21] LABS: COVID-19 PCR Negative (Negative)
== END 2023-11-20 20:08 | disposition home or self-care (01) ==
LOC: LBN 20:07
PROVIDERS: PCP Nurse Practitioner Family; Visit Provider Physician Assistant Medical
DX: J02.9 Acute pharyngitis, unspecified (principal); Z20.822 Contact with and (suspected) exposure to COVID-19
CPT/HCPCS: 87635; 87070

== ENCOUNTER → 2023-12-15 10:36 | Outpatient (BNVA) | payer MEDICARE, MEDICAID, SELFPAY | PROVIDERS: PCP Nurse Practitioner Family; Referring Provider Nurse Practitioner Family; Visit Provider Physician Assistant Surgical | DX: J96.91 Respiratory failure, unspecified with hypoxia (principal); J96.92 Respiratory failure, unspecified with hypercapnia; J45.909 Unspecified asthma, uncomplicated; E66.2 Morbid (severe) obesity with alveolar hypoventilation; F17.210 Nicotine dependence, cigarettes, uncomplicated | CPT/HCPCS: 99214 ==

== ENCOUNTER 2024-01-02 05:58 | Emergency (ER) | payer MEDICARE, MEDICAID, SELFPAY ==
[2024-01-02 05:58] VITALS: BP 156/88; PULSE 99; RESP 20; TEMP 36.6; O2SAT 93
--- NOTE | 2024-01-02 06:00 | DI.CT_ITS ---
Exam(s) CT LUMBAR SPINE WO EXAM: CT LUMBAR SPINE WO CLINICAL HISTORY: midline and left L4 spine pain. TECHNIQUE: Imaging Protocol: Axial computed tomography images with coronal and sagittal reformatted images were created and reviewed COMPARISON: No exams were available for comparison FINDINGS: Bones: There are no fractures, listhesis, nor pars defects. There are no lytic osseous lesions evide nt. INDIVIDUAL LEVELS: T12-L1:No disc herniation nor canal stenosis. Facet joints unremarkable. No foraminal stenosis. L1-2: No disc herniation nor canal stenosis. Facet joints unremarkable. No foraminal stenosis. L2-3: No disc herniation nor canal stenosis. Facet joints unremarkable. No Foraminal stenosis L3-4: Normal disc height. There is annular bulging, slightly more on the left side. There is mild central spinal canal stenosis due to the annular bulging and short AP dimensions of the pedicles. Th ere are minimal degenerate as. L4-5: Normal disc height. Annular bulging without an obvious disc herniation. There is moderate ce ntral spinal canal stenosis due to annular bulging and short AP dimensions of the pedicles. Mild deg enerative changes in the facet joints. L5-S1: Normal disc height. Symmetrical annular bulging with mild central canal stenosis. Advanced bilateral facet arthropathy and. The visualized sacroiliac joints and sacrum appear unremarkable. PARASPINAL SOFT TISSUES: Visualized paraspinal tissues appear unremarkable. IMPRESSION: 1. No fractures evident. 2. There is no disc space narrowing but there is multilevel central spinal canal stenosis at L3-4, L4 -5, and L5-S1 levels due to short AP dimensions of the pedicles and annular bulging. 3. Recommend follow-up MRI. RADIATION DOSE DELIVERED: 863.78mGy.cm Total DLP DATA REPOSITORY: All CT scans at this facility are submitted to the National Radiology Data Registry (NRDR) Dose Index Registry (DIR) with the [employer] ([employer]). RADIATION OPTIMIZATION: All CT scans at this facility use at least one of these dose optimization te chniques: automated exposure control; mA and/or kV adjustment per patient size (includes targeted exa ms where dose is matched to clinical indication); or iterative reconstruction.
[2024-01-02] MEDS: Acetaminophen 500 MG TAB 1000 MG PO (06:22)
[2024-01-02] MEDS: predniSONE 20 MG TAB 60 MG PO (06:22)
[2024-01-02] MEDS: Lidocaine 5% Patch 1 PATCH TP (06:22)
[2024-01-02] MEDS: Cyclobenzaprine 10 MG TAB PO (06:22)
--- NOTE | 2024-01-02 06:27 | W.ED.GENAD ---
HPI General Date/Time Provider Initiated Documentation: 01/02/24 06:12. HPI Narrative: This is a 48-year-old female with a past medical history of COPD, ADHD, diabetes, hypertension, cholecystectomy and salpingectomy who presents today for evaluation of left back pain. Patient states that 4 months ago the pain began, it is in her lower back in the lower lumbar area, with radiation down to her left buttock to the lateral aspect of her thigh. Pain is achy in nature. It is worsened with position and movement. She denies any falls or trauma. Patient denies any saddle anesthesia, numbness or tingling in the groin, change in sensation when wiping. Patient denies any change in sensation during sexual intercourse, bowel or bladder incontinence, leakage, or retention. Patient denies any weakness in the lower extremities, atypical falls or imbalance. No other complaints at this time. She did take Motrin and has been doing this daily and this does improve the symptoms mildly. Related Data Home Medications Medication Instructions Recorded Confirmed divalproex 500 mg tablet,delayed 1,000 mg PO QHS 01/18/20 12/15/23 release (Depakote) lisinopril 20 mg tablet 20 mg PO DAILY 01/18/20 12/15/23 melatonin 10 mg tablet 10 mg PO QHS 01/18/20 12/15/23 risperidone 2 mg tablet (Risperdal) 4 mg PO HS 01/18/20 12/15/23 sertraline 100 mg tablet (Zoloft) 200 mg PO QAM 01/18/20 12/15/23 dulaglutide 3 mg/0.5 mL 1 device subcut QWEEK 10/10/22 12/15/23 subcutaneous pen injector (Trulicity) lorazepam 0.5 mg tablet 1 tab PO BID PRN PRN Anxiety 10/10/22 12/15/23 ibuprofen 800 mg tablet 800 mg PO BID PRN 11/20/22 12/15/23 nicotine See Rx Instructions transdermal 11/21/22 09/12/23 21mg/24hr-14mg/24hr-7mg/24hr daily .COMPLEX #56 patches transderm patches,sequentl Oxygen #1 ea 12/13/22 12/15/23 dextroamphetamine-amphetamine 10 10 mg PO DAILY 03/31/23 12/15/23 mg tablet (Adderall) spironolactone 25 mg tablet 25 mg PO DAILY #30 tabs 05/06/23 12/15/23 furosemide 20 mg tablet (Lasix) 20 mg PO DAILY #14 tabs 06/13/23 12/15/23 albuterol sulfate 90 mcg/actuation 2 puff inhalation Q6H PRN 09/12/23 12/15/23 aerosol inhaler (Proventil HFA) shortness of breath or wheezing #8.5 grams ipratropium 0.5 mg-albuterol 3 mg 3 ml UPD Q4H PRN PRN shortness of 09/12/23 12/15/23 (2.5 mg base)/3 mL nebulization breath or wheezing #540 mL soln mometasone-formoterol HFA 200 2 puff inhalation BID #13 grams 09/12/23 12/15/23 mcg-5 mcg/actuation aerosol inhaler (Dulera) prazosin 2 mg capsule 8 mg PO HS 09/12/23 12/15/23 tiotropium bromide 2.5 2 puff inhalation DAILY #4 grams 09/12/23 12/15/23 mcg/actuation mist for inhalation (Spiriva Respimat) varenicline 0.5 mg (11)-1 mg (42) See Rx Instructions PO PER PKG DIR 09/12/23 09/12/23 tablets in a dose pack (Chantix #53 dose pk Starting Month Box) varenicline 1 mg tablet (Chantix 1 mg PO BID #60 tabs 09/12/23 09/12/23 Continuing Month Box) empagliflozin 25 mg tablet 25 mg PO DAILY 12/15/23 12/15/23 (Jardiance) cyclobenzaprine 10 mg tablet 10 mg PO TID #14 tabs 01/02/24 lidocaine 5 % topical patch 1 patch topical Q24H #15 ea 01/02/24 (Lidoderm) prednisone 50 mg tablet 50 mg PO DAILY #5 tabs 01/02/24 Previous Rx's Medication Instructions Recorded nicotine See Rx Instructions transdermal 11/21/22 21mg/24hr-14mg/24hr-7mg/24hr daily .COMPLEX #56 patches transderm patches,sequentl Oxygen #1 ea 12/13/22 spironolactone 25 mg tablet 25 mg PO DAILY #30 tabs 05/06/23 furosemide 20 mg tablet (Lasix) 20 mg PO DAILY #14 tabs 06/13/23 albuterol sulfate 90 mcg/actuation 2 puff inhalation Q6H PRN 09/12/23 aerosol inhaler (Proventil HFA) shortness of breath or wheezing #8.5 grams ipratropium 0.5 mg-albuterol 3 mg 3 ml UPD Q4H PRN PRN shortness of 09/12/23 (2.5 mg base)/3 mL nebulization breath or wheezing #540 mL soln mometasone-formoterol HFA 200 2 puff inhalation BID #13 grams 09/12/23 mcg-5 mcg/actuation aerosol inhaler (Dulera) tiotropium bromide 2.5 2 puff inhalation DAILY #4 grams 09/12/23 mcg/actuation mist for inhalation (Spiriva Respimat) varenicline 0.5 mg (11)-1 mg (42) See Rx Instructions PO PER PKG DIR 09/12/23 tablets in a dose pack (Chantix #53 dose pk Starting Month Box) varenicline 1 mg tablet (Chantix 1 mg PO BID #60 tabs 09/12/23 Continuing Month Box) cyclobenzaprine 10 mg tablet 10 mg PO TID #14 tabs 01/02/24 lidocaine 5 % topical patch 1 patch topical Q24H #15 ea 01/02/24 (Lidoderm) prednisone 50 mg tablet 50 mg PO DAILY #5 tabs 01/02/24 Allergies Allergy/AdvReac Type Severity Reaction Status Date / Time bee pollen Allergy Hives Unverified 12/15/23 10:52 hazelnut Allergy Hives Unverified 12/15/23 10:52 peanut Allergy Unverified 12/15/23 10:52 tree nut Allergy Unverified 12/15/23 10:52 amoxicillin AdvReac Nausea Unverified 12/15/23 10:52 fluoxetine [From Prozac] AdvReac Nausea Unverified 12/15/23 10:52 abelox Allergy Hives Uncoded 12/15/23 10:52 General Stated Complaint: Nk/Back Pain ZACK: 3 Review of Systems All systems reviewed & are unremarkable except as noted in HPI and below Exam Narrative Exam Narrative: 1.Const: Well-nourished, Well-developed, appearing stated age 2.Eyes: PERRL, no conjunctival injection, and symmetrical lids. 3.ENT: Atraumatic external nose and ears. Moist MM. Neck: Symmetric, trachea midline, No thyromegaly. 4.CVS: +S1/S2, No murmurs or gallops. Peripheral pulses 2+ and equal in all extremities. Brisk capillary refill in all extremities. 5.RESP: Unlabored respiratory effort. Clear to auscultation bilaterally. No wheezes rales or rhonchi 6.GI: Soft, Nontender/Nondistended, No hepatosplenomegaly. No guarding or rebound. 7.MSK: Normocephalic/Atraumatic, Extremities w/o deformity or ttp No cyanosis or clubbing, Normal movement of all extremities Patient does demonstrate mild midline lumbar spine tenderness at L3 and L4, as well as left paraspinal tenderness and tenderness over the SI joint on the left. Patient has +5 out of 5 strength in the lower extremities in dorsiflexion and plantarflexion, knee flexion and extension, hip flexion and extension. Normal strength for dorsiflexion and plantar flexion of the great toe bilaterally. There is +2 over 2 dorsalis pedis pulses bilaterally. There is normal sensation to the skin with light touch at the foot, knee, and hip. Normal saddle sensation. Good sensation over the deep sural nerve area bilaterally. Rectal exam demonstrates good rectal tone with excellent mihir-rectal sensation. Reflexes are +2 over 4 in the patellar reflex bilaterally. +5 out of 5 strength in the medial, ulnar, radial nerve distribution bilaterally in the hands as well as intact light touch sensation to these dermatomes on the hands 8.Skin: Warm, Dry. No rashes or lesions. 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 Sensation grossly intact, no focal neurologic deficits. 10.Psych: (AAO) x3. Appropriate mood and affect Course Vital Signs Vital signs: Vital Signs Temperature 36.6 C 01/02/24 05:58 Pulse 99 H 01/02/24 05:58 Respiratory Rate 20 01/02/24 05:58 Blood Pressure 156/88 H 01/02/24 05:58 Pulse Oximetry 93 01/02/24 05:58 Temperature 36.6 C 01/02/24 05:58 Pulse 99 H 01/02/24 05:58 Respiratory Rate 20 01/02/24 05:58 Respiratory Effort Short of Breath 01/02/24 06:01 Blood Pressure 156/88 H 01/02/24 05:58 Pulse Oximetry 93 01/02/24 05:58 Oxygen Delivery Method Nasal Cannula 01/02/24 05:58 Oxygen Flow Rate 3 01/02/24 05:58 Pain Level 9 01/02/24 05:58 Medical Decision Making This is a 48-year-old female with a past medical history of COPD, ADHD, diabetes, hypertension, cholecystectomy and salpingectomy who presents today for evaluation of left back pain. Patient states that 4 months ago the pain began, it is in her lower back in the lower lumbar area, with radiation down to her left buttock to the lateral aspect of her thigh. Pain is achy in nature. It is worsened with position and movement. She denies any falls or trauma. Patient denies any saddle anesthesia, numbness or tingling in the groin, change in sensation when wiping. Patient denies any change in sensation during sexual intercourse, bowel or bladder incontinence, leakage, or retention. Patient denies any weakness in the lower extremities, atypical falls or imbalance. No other complaints at this time. She did take Motrin and has been doing this daily and this does improve the symptoms mildly. Exam demonstrates well-appearing female, mild midline tenderness L3 and L4. Mild left-sided paraspinal tenderness and SI joint pain. Suspect mild radiculopathy and or arthropathy as cause of pain. Symptoms notably clinically inconsistent with cauda equina syndrome. She demonstrates good rectal tone, good sensation and strength throughout. Patellar reflexes +[address] scan of the lumbar spine to rule out fracture or other acute process. Will give steroid, NSAIDs and Lidoderm patch and Flexeril. Will monitor closely and reassess. Patient will be signed out to follow-up on CT imaging results. Quality:SDOH Health Related Social Needs: No Data to Display PFSH All Active Problems (Updated 01/02/24 @ 07:08 by Matty Palacio DO) Sciatica (Acute) Lumbago (Acute) Obesity hypoventilation syndrome (Acute) Respiratory failure with hypoxia and hypercapnia (Chronic) Shortness of breath (Acute) Acute asthma exacerbation (Acute) Respiratory failure with hypoxia (Acute) Nicotine dependence, cigarettes, uncomplicated (Acute) Recurrent pneumonia (Acute) Asthma (Chronic) Vitamin D deficiency (Acute) Pharyngitis (Acute) Thrush (Acute) Type 2 diabetes mellitus (Chronic) Multifocal pneumonia (Acute) Pneumonia (Acute) Acute bronchitis (Acute) Tobacco abuse (Chronic) Encounter for medication refill (Acute) Medical History COPD exacerbation COPD exacerbation H/O suicide attempt ADHD Anxiety Bipolar disorder Acute exacerbation of COPD with asthma Non-insulin dependent diabetes mellitus Obesity (BMI 30.0-34.9) Hypertension Hypoxia Acute asthma exacerbation Acute pneumonia Surgical History Status post bilateral salpingectomy S/P cholecystectomy Family History Other Adopted Social History Smoking/Tobacco Use Status: Current every day Tobacco Type: cigarettes Smoking packs per day: 0.25 Smoking cigarettes per day: 5.0 Years smoked: 40 Smoking pack-years: 10.00 Tobacco: How many years used: 40 Smoking risk assessment performed?: Yes Alcohol Intake: never Drug use: Occasionally Substance use type: marijuana Do you feel safe at home: Yes Do you feel safe in your relationship?: Yes Additional Social history: Lives with on [facility] in [facility]. She is disabled with her medical and mental health conditions. 22 year old daughter in [place]. Discharge Plan Disposition Patient Disposition: Home Condition: Good Discharge Details Clinical Impression: Lumbago, Sciatica Primary Care Provider: BRYCE SMITH ED Provider: Matty Palacio Home Meds and New Rx's Prescriptions: New cyclobenzaprine 10 mg tablet 10 mg PO TID Qty: 14 0RF prednisone 50 mg tablet 50 mg PO DAILY Qty: 5 0RF lidocaine [Lidoderm] 5 % adhesive patch,medicated 1 patch Topical Q24H Qty: 15 0RF No Action (DME) Oxygen Tank See Rx Instructions .Route Qty: 1 0RF Rx Instructions: 2LPM with exertion dextroamphetamine-amphetamine [Adderall] 10 mg tablet 10 mg PO DAILY albuterol sulfate [Proventil HFA] 90 mcg/actuation HFA aerosol inhaler 2 puff inhalation Q6H PRN (Reason: shortness of breath or wheezing) Qty: 8.5 12RF ipratropium-albuterol 0.5 mg-3 mg(2.5 mg base)/3 mL solution for nebulization 3 ml UPD Q4H PRN PRN (Reason: shortness of breath or wheezing) Qty: 540 12RF Dulera 200-5 mcg/actuation HFA aerosol inhaler 2 puff inhalation BID Qty: 13 12RF Rx Instructions: Rinse mouth after use Spiriva Respimat 2.5 mcg/actuation mist 2 puff inhalation DAILY Qty: 4 12RF varenicline [Chantix Starting Month Box] 0.5 mg (11)- 1 mg (42) tablets,dose pack See Rx Instructions PO PER PKG DIR Qty: 53 0RF Rx Instructions: PO PER PKG DIR varenicline [Chantix Continuing Month Box] 1 mg tablet 1 mg PO BID Qty: 60 5RF Jardiance 25 mg tablet 25 mg PO DAILY prazosin 2 mg capsule 8 mg PO HS Patient Comments: TAKE ONE CAPSULE BY MOUTH AT BEDTIME lisinopril 20 mg Tablet 20 mg PO DAILY sertraline [Zoloft] 100 mg Tablet 200 mg PO QAM divalproex [Depakote] 500 mg Tablet,Delayed Release (Dr/Ec) 1,000 mg PO QHS risperidone [Risperdal] 2 mg Tablet 4 mg PO HS melatonin 10 mg Tablet 10 mg PO QHS lorazepam 0.5 mg tablet 1 tab PO BID PRN PRN (Reason: Anxiety) Patient Comments: TAKE ONE TABLET BY MOUTH TWICE A DAY NEEDED FOR ANXIETY Trulicity 3 mg/0.5 mL pen injector 1 device SUBCUT QWEEK Patient Comments: INJECT ONCE WEEKLY DIRECTED spironolactone 25 mg Tablet 25 mg PO DAILY Qty: 30 0RF ibuprofen 800 mg tablet 800 mg PO BID PRN Patient Comments: TAKE ONE TABLET BY MOUTH TWICE A DAY NEEDED nicotine 21-14-7 mg/24 hr patch, TD daily, sequential See Rx Instructions .ROUTE .COMPLEX Qty: 56 0RF Rx Instructions: apply 1-21 mg NICOTINE PATCH daily for 28 days; follow with 1-14 mg PATCH daily for 14 days, then 1-7mg PATCH daily for 14 days furosemide [Lasix] 20 mg tablet 20 mg PO DAILY Qty: 14 0RF Discharge Instructions Instructions: Sciatica (ED), Low Back Strain (ED) Additional Instructions: At this time your signs and symptoms are clinically consistent with a back sprain. This can cause significant pain and take a fair bit of time to heal. I expect 1 to 2 months for potential resolution. In the meantime do not lift anything greater than 5 pounds for the next 2 weeks. Avoid any significant vigorous physical activity. Perform easy gentle regular activities at home without any significant bending or lifting. Please take the steroids as directed. You have been given a prescription for Lidoderm patch. If your insurance does not cover this you can get [id number] Lidoderm patches at 4% which are almost just as effective. Please take the Flexeril as directed but do not take it when driving or operating any vehicles or heavy machinery, swimming, taking long baths, or operating firearms. Please use a heating pad as often as possible on your back. Perform daily gentle stretches on your back. Please continue to take the Tylenol and Motrin. You can take 1000 mg of Tylenol every 6 hours and 600 mg of ibuprofen every 6 hours. If you notice any worsening of your symptoms, or any new symptoms such as vomiting, diarrhea, fever, chills, shortness of breath, chest pain, numbness or tingling in your groin or legs, weakness in your legs, loss of control for your bowels or bladder, or fainting , please return immediately to the emergency department for reevaluation. Please follow up with your primary care provider as soon as possible for reassessment and reevaluation. As always, it was a pleasure participating in your medical care today. Additionally you did have some evidence of blood in your urine. Please get your urine rechecked in the next 1 to 2 weeks to make sure this is resolved. If it persists you may require further ultrasonographic and urologic evaluation. Referrals: BRYCE SMITH NP [Primary Care Provider] -
[2024-01-02 06:33] LABS: Bilirubin Negative (Negative); Blood Moderate (Negative); Clarity Clear (Clear); Glucose >=1000 mg/dL (Negative); Ketones Negative (Negative); Leukocyte Esterase Negative (Negative); Nitrite Negative (Negative); Specific Gravity 1.025 (1.005-1.025); Urobilinogen 0.2 mg/dL (Up to 0.2)
[2024-01-02 06:46] LABS: Bacteria Rare HPF (Negative); C & S Indicated? No; Casts Negative LPF (Negative); Crystals Negative HPF (Negative); Epithelial Cells Rare HPF (Negative); Mucus Negative (Negative); WBC 0-2 HPF (0-5)
--- NOTE | 2024-01-02 07:20 | DI.VRAD_ITS ---
PROCEDURE INFORMATION: Exam: CT Lumbar Spine Without Contrast Exam date and time: 01/02/2024 6:30 AM Age: 48 years old Clinical indication: Low back pain; Patient HX: Midline and left l4 spine pain TECHNIQUE: Imaging protocol: Computed tomography of the lumbar spine without contrast. COMPARISON: No relevant prior studies available. FINDINGS: Limitations: Mild motion artifact. Bones/joints: No acute lumbar spine fracture seen. Multilevel degenerative changes including facet and ligamentous hypertrophy at multiple levels as well as disc bulges as described below. At L2-L3 there is left foraminal narrowing and possible left nerve root impingement of L2 and L3. At L3-L4 there is disc bulge with mild right and moderate left foraminal narrowing and mild canal narrowing with possible L4 nerve root impingement. At L4-L5 there is disc bulge with moderate left foraminal narrowing with suspected L4 nerve root impingement. There may be bilateral L5 nerve root impingement within the canal as well. There is moderate canal narrowing at this level. At L5-S1 there is disc bulge and left paracentral disc protrusion with marked left foraminal narrowing with suspected nerve root impingement of L5 and S1. Mild canal narrowing at this level. Adrenal glands: Adrenal thickening. Indeterminate left adrenal nodule. Consider follow-up. Vasculature: Arterial calcifications. Soft tissues: See Bones/joints finding. IMPRESSION: 1. Degenerative changes at multiple levels in the lumbar spine with suspected nerve root impingement as described above. Please note that spinal canal contents and nerve roots would be better evaluated with MRI. 2. Additional findings as above. Dictated and Authenticated by: Claribel Shepard MD. Ordering:YING Starr MD
[2024-01-02 07:27] VITALS: BP 187/83; PULSE 89; RESP 20; O2SAT 97
== END 2024-01-02 07:55 | disposition home or self-care (01) ==
LOC: ER 07:09
PROVIDERS: Emergency Provider Student in an Organized Health Care Education/Training Program; PCP Nurse Practitioner Family
DX: M54.30 Sciatica, unspecified side (principal); M54.50 Low back pain, unspecified; I10 Essential (primary) hypertension; E11.9 Type 2 diabetes mellitus without complications; F17.200 Nicotine dependence, unspecified, uncomplicated
CPT/HCPCS: 99283; 72131; 81003; 81015; J7512

== ENCOUNTER 2024-01-11 22:54 | Emergency (ER) | payer MEDICARE, MEDICAID, SELFPAY ==
[2024-01-11 22:57] VITALS: BP 162/73; PULSE 86; RESP 18; TEMP 36.6; O2SAT 96
--- NOTE | 2024-01-11 23:27 | W.ED.GENAD ---
HPI General Mode of arrival: EMS. Date/Time Provider Initiated Documentation: 01/11/24 23:03. Limitations to Documentation: no limitations. Information obtained by: patient, EMS and old records reviewed. HPI Narrative: 48yo F with COPD, DM, HTN, chronic back pain, presenting via EMS for back pain. History from EMS, patient, [facility] record review. Has had 4 months of low back pain, worse on the left, radiating down her leg. Seen in this ED on 01/02 for these symptoms, CT showed degenertavie changes and dis bulges; discharged on course of steroids and NSAIDs. Saw PCP on 01/07, has MRI scheduled for this Friday. Pain worse tonight and preventing her from sleeping. No falls or new injuries. Pain is dull, low lumbar, and radiates to her hips bilaterally. Worse with ambulation. No numbness, tingling, or weakness. No bowel/bladder issues. No saddle anesthesia. No history of spinal instrumentation or IV drug use at any point. She is otherwise in her usual state of health with no fevers, chills, rash, nausea, vomiting, abdominal pain, chest pain, shortness of breath, or other concerns. Related Data Home Medications Medication Instructions Recorded Confirmed divalproex 500 mg tablet,delayed 1,000 mg PO QHS 01/18/20 01/11/24 release (Depakote) lisinopril 20 mg tablet 20 mg PO DAILY 01/18/20 01/11/24 melatonin 10 mg tablet 10 mg PO QHS 01/18/20 01/11/24 risperidone 2 mg tablet (Risperdal) 4 mg PO HS 01/18/20 01/11/24 sertraline 100 mg tablet (Zoloft) 200 mg PO QAM 01/18/20 01/11/24 dulaglutide 3 mg/0.5 mL 1 device subcut QWEEK 10/10/22 01/11/24 subcutaneous pen injector (Trulicity) ibuprofen 800 mg tablet 800 mg PO BID PRN 11/20/22 01/11/24 Oxygen #1 ea 12/13/22 12/15/23 dextroamphetamine-amphetamine 10 10 mg PO DAILY 03/31/23 01/11/24 mg tablet (Adderall) spironolactone 25 mg tablet 25 mg PO DAILY #30 tabs 05/06/23 01/11/24 furosemide 20 mg tablet (Lasix) 20 mg PO DAILY #14 tabs 06/13/23 01/11/24 albuterol sulfate 90 mcg/actuation 2 puff inhalation Q6H PRN 09/12/23 01/11/24 aerosol inhaler (Proventil HFA) shortness of breath or wheezing #8.5 grams ipratropium 0.5 mg-albuterol 3 mg 3 ml UPD Q4H PRN PRN shortness of 09/12/23 01/11/24 (2.5 mg base)/3 mL nebulization breath or wheezing #540 mL soln mometasone-formoterol HFA 200 2 puff inhalation BID #13 grams 09/12/23 01/11/24 mcg-5 mcg/actuation aerosol inhaler (Dulera) prazosin 2 mg capsule 8 mg PO HS 09/12/23 01/11/24 tiotropium bromide 2.5 2 puff inhalation DAILY #4 grams 09/12/23 01/11/24 mcg/actuation mist for inhalation (Spiriva Respimat) varenicline 0.5 mg (11)-1 mg (42) See Rx Instructions PO PER PKG DIR 09/12/23 01/11/24 tablets in a dose pack (Chantix #53 dose pk Starting Month Box) varenicline 1 mg tablet (Chantix 1 mg PO BID #60 tabs 09/12/23 01/11/24 Continuing Month Box) empagliflozin 25 mg tablet 25 mg PO DAILY 12/15/23 01/11/24 (Jardiance) cyclobenzaprine 10 mg tablet 10 mg PO TID #14 tabs 01/02/24 01/11/24 lidocaine 5 % topical patch 1 patch topical Q24H #15 ea 01/02/24 01/11/24 (Lidoderm) prednisone 50 mg tablet 50 mg PO DAILY #5 tabs 01/02/24 01/11/24 cyclobenzaprine 10 mg tablet 10 mg PO TID PRN #30 tabs 01/12/24 Previous Rx's Medication Instructions Recorded Oxygen #1 ea 12/13/22 spironolactone 25 mg tablet 25 mg PO DAILY #30 tabs 05/06/23 furosemide 20 mg tablet (Lasix) 20 mg PO DAILY #14 tabs 06/13/23 albuterol sulfate 90 mcg/actuation 2 puff inhalation Q6H PRN 09/12/23 aerosol inhaler (Proventil HFA) shortness of breath or wheezing #8.5 grams ipratropium 0.5 mg-albuterol 3 mg 3 ml UPD Q4H PRN PRN shortness of 09/12/23 (2.5 mg base)/3 mL nebulization breath or wheezing #540 mL soln mometasone-formoterol HFA 200 2 puff inhalation BID #13 grams 09/12/23 mcg-5 mcg/actuation aerosol inhaler (Dulera) tiotropium bromide 2.5 2 puff inhalation DAILY #4 grams 09/12/23 mcg/actuation mist for inhalation (Spiriva Respimat) varenicline 0.5 mg (11)-1 mg (42) See Rx Instructions PO PER PKG DIR 09/12/23 tablets in a dose pack (Chantix #53 dose pk Starting Month Box) varenicline 1 mg tablet (Chantix 1 mg PO BID #60 tabs 09/12/23 Continuing Month Box) cyclobenzaprine 10 mg tablet 10 mg PO TID #14 tabs 01/02/24 lidocaine 5 % topical patch 1 patch topical Q24H #15 ea 01/02/24 (Lidoderm) prednisone 50 mg tablet 50 mg PO DAILY #5 tabs 01/02/24 cyclobenzaprine 10 mg tablet 10 mg PO TID PRN #30 tabs 01/12/24 Allergies Allergy/AdvReac Type Severity Reaction Status Date / Time bee pollen Allergy Hives Unverified 01/11/24 23:02 hazelnut Allergy Hives Unverified 01/11/24 23:02 peanut Allergy hallucinati Unverified 01/11/24 23:02 on tree nut Allergy hallucinati Unverified 01/11/24 23:02 on amoxicillin AdvReac Nausea Unverified 01/11/24 23:02 fluoxetine [From Prozac] AdvReac Nausea Unverified 01/11/24 23:02 trazodone AdvReac Weight gain Verified 01/11/24 23:02 abelox Allergy Hives Uncoded 01/11/24 23:02 General Stated Complaint: Nk/Back Pain ZACK: 3 Review of Systems Narrative: see HPI Exam Narrative Exam Narrative: General: Alert, well appearing, well nourished, in no acute distress. Head: Normocephalic, atraumatic Neck: Trachea midline, ?Neck supple. Cardiac: ?RRR, no murmurs appreciated Resp: No respiratory distress. CTAB. Abd: ?Soft, non-distended, nontender : ?No suprapubic tenderness. No CVA tenderness. Extremities: ?No deformities.? No peripheral edema. Back: Low lumbar and sacral paraspinal tenderness to palpation, mild sacral midline tenderness. Palpable paraspinal spasm in right lumbar region. Neuro: ? GCS 15.? PERRL.? EOMI.? Fluent speech, no dysarthria. Motor- 5/5 strength symmetric bilateral upper and lower extremities Sensation- ?Intact to light touch and symmetric multiple dermatomes including upper and lower extremities. No saddle anesthesia. Reflexes- 1/4 achilles & patellar, no clonus Gait/station: ?Normal stance.? No truncal ataxia. Slow steady gait with equal steps Course Vital Signs Vital signs: Vital Signs Temperature 36.6 C 01/11/24 22:57 Pulse 86 01/11/24 22:57 Respiratory Rate 18 01/11/24 22:57 Blood Pressure 162/73 H 01/11/24 22:57 Pulse Oximetry 96 01/11/24 22:57 Temperature 36.6 C 01/11/24 22:57 Temperature Source Oral 01/11/24 22:57 Pulse 86 01/11/24 22:57 Respiratory Rate 18 01/11/24 22:57 Respiratory Effort Normal, Non-Labored 01/11/24 23:04 Blood Pressure 162/73 H 01/11/24 22:57 Blood Pressure Position Supine 01/11/24 22:57 Pulse Oximetry 96 01/11/24 22:57 Oxygen Delivery Method Room Air 01/11/24 22:57 Oxygen Flow Rate 0 01/11/24 22:57 Pain Level 9 01/11/24 23:06 Medical Decision Making 48yo F with COPD, DM, HTN, chronic back pain, presenting via EMS for back pain. History from EMS, patient, [facility] record review. 4 months of low back pain, worse on the left, radiating down her leg. Seen in this ED on 01/02 for these symptoms, CT showed degenerative changes and dis bulges; discharged on course of steroids and NSAIDs. Saw PCP on 01/07, has MRI scheduled for this Friday. Tonight pain worse; has not taken pain medication since the morning. Vital signs and physical exam reassuring; no neurologic deficits. No red flags on history or exam for back pain. Not suggestive of cauda equina, spinal epidural abscess, spinal hematoma, etc. Would not get labs or repeat imaging today. Will treat with tyelnol, toradol, flexeril, lidocaine patch. On reassessment patient reports pain improved. Able to ambulate independently steadily in the department. Advised continued symptomatic treatment at home and outpatient MRI as previously scheduled. Discharged home; discharge instructions and return precautions were reviewed with patient who verbalized understanding. All questions were answered and she is in full agreement with the plan. Medical Records Medical records reviewed: Yes I reviewed the patient's medical records. Medical records narrative: ED visit 01/02/24 Quality:SDOH Health Related Social Needs: No Data to Display PFSH All Active Problems (Updated 01/12/24 @ 00:10 by Demi Henderson MD) Back pain (Acute) Sciatica (Acute) Lumbago (Acute) Obesity hypoventilation syndrome (Acute) Respiratory failure with hypoxia and hypercapnia (Chronic) Shortness of breath (Acute) Acute asthma exacerbation (Acute) Respiratory failure with hypoxia (Acute) Nicotine dependence, cigarettes, uncomplicated (Acute) Recurrent pneumonia (Acute) Asthma (Chronic) Vitamin D deficiency (Acute) Pharyngitis (Acute) Thrush (Acute) Type 2 diabetes mellitus (Chronic) Multifocal pneumonia (Acute) Pneumonia (Acute) Acute bronchitis (Acute) Tobacco abuse (Chronic) Encounter for medication refill (Acute) Medical History COPD exacerbation COPD exacerbation H/O suicide attempt ADHD Anxiety Bipolar disorder Acute exacerbation of COPD with asthma Non-insulin dependent diabetes mellitus Obesity (BMI 30.0-34.9) Hypertension Hypoxia Acute asthma exacerbation Acute pneumonia Surgical History Status post bilateral salpingectomy S/P cholecystectomy Family History Other Adopted Social History Smoking/Tobacco Use Status: Current every day Tobacco Type: cigarettes Smoking packs per day: 0.25 Smoking cigarettes per day: 5.0 Years smoked: 40 Smoking pack-years: 10.00 Tobacco: How many years used: 40 Smoking risk assessment performed?: Yes Alcohol Intake: never Drug use: Occasionally Substance use type: marijuana Details: smokes marijuana about once per month 01/11/24 Do you feel safe at home: Yes Do you feel safe in your relationship?: Yes Additional Social history: [address] in [place]. She is disabled with her medical and mental health conditions. 22 year old daughter in [place]. Discharge Plan Disposition Patient Disposition: Home Condition: Good Discharge Details Clinical Impression: Back pain Primary Care Provider: BRYCE SMITH ED Provider: Demi Henderson Home Meds and New Rx's Prescriptions: New cyclobenzaprine 10 mg tablet 10 mg PO TID PRNQty: 30 0RF Continued (DME) Oxygen Tank See Rx Instructions .Route Qty: 1 0RF Rx Instructions: 2LPM with exertion dextroamphetamine-amphetamine [Adderall] 10 mg tablet 10 mg PO DAILY albuterol sulfate [Proventil HFA] 90 mcg/actuation HFA aerosol inhaler 2 puff inhalation Q6H PRN (Reason: shortness of breath or wheezing) Qty: 8.5 12RF ipratropium-albuterol 0.5 mg-3 mg(2.5 mg base)/3 mL solution for nebulization 3 ml UPD Q4H PRN PRN (Reason: shortness of breath or wheezing) Qty: 540 12RF Dulera 200-5 mcg/actuation HFA aerosol inhaler 2 puff inhalation BID Qty: 13 12RF Rx Instructions: Rinse mouth after use Spiriva Respimat 2.5 mcg/actuation mist 2 puff inhalation DAILY Qty: 4 12RF varenicline [Chantix Starting Month Box] 0.5 mg (11)- 1 mg (42) tablets,dose pack See Rx Instructions PO PER PKG DIR Qty: 53 0RF Rx Instructions: PO PER PKG DIR varenicline [Chantix Continuing Month Box] 1 mg tablet 1 mg PO BID Qty: 60 5RF Jardiance 25 mg tablet 25 mg PO DAILY prazosin 2 mg capsule 8 mg PO HS Patient Comments: TAKE ONE CAPSULE BY MOUTH AT BEDTIME lisinopril 20 mg Tablet 20 mg PO DAILY sertraline [Zoloft] 100 mg Tablet 200 mg PO QAM divalproex [Depakote] 500 mg Tablet,Delayed Release (Dr/Ec) 1,000 mg PO QHS risperidone [Risperdal] 2 mg Tablet 4 mg PO HS melatonin 10 mg Tablet 10 mg PO QHS Trulicity 3 mg/0.5 mL pen injector 1 device SUBCUT QWEEK Patient Comments: INJECT ONCE WEEKLY DIRECTED spironolactone 25 mg Tablet 25 mg PO DAILY Qty: 30 0RF cyclobenzaprine 10 mg tablet 10 mg PO TID Qty: 14 0RF prednisone 50 mg tablet 50 mg PO DAILY Qty: 5 0RF lidocaine [Lidoderm] 5 % adhesive patch,medicated 1 patch Topical Q24H Qty: 15 0RF ibuprofen 800 mg tablet 800 mg PO BID PRN Patient Comments: TAKE ONE TABLET BY MOUTH TWICE A DAY NEEDED furosemide [Lasix] 20 mg tablet 20 mg PO DAILY Qty: 14 0RF Discharge Instructions Instructions: Back Pain (ED) Additional Instructions: Continue tylenol and ibuprofen over the counter; follow the directions on the bottle. Continue the flexeril and lidocaine patches you have been prescribed. A referral has been sent for physical therapy; they will call you to schedule an appointment. Keep your MRI appointment on Friday. Call your primary care doctor today to schedule an appointment within the next 3 days to follow up on your visit here. Return to the emergency department for new worsening symptoms including losing control of your bladder, numbness or weakness in your legs, inability to walk, or if you have any other concerns. Referrals: BRYCE SMITH PRODUCT DELIVERY SPECIALIST [Primary Care Provider] -
[2024-01-11] MEDS: Acetaminophen 500 MG TAB 1000 MG PO (23:36)
[2024-01-11] MEDS: Cyclobenzaprine 10 MG TAB PO (23:36)
[2024-01-11] MEDS: Ketorolac 15 MG/ML VIAL IM (23:36)
[2024-01-12] MEDS: Lidocaine 5% Patch 2 PATCH TP (00:17)
[2024-01-12 00:19] VITALS: BP 142/54; PULSE 82; RESP 18; O2SAT 96
--- NOTE | 2024-01-12 08:39 | NUR.NOTE ---
Referral faxed to [facility]era Nath [facility] Back pain for next week. Nursing Note:
== END 2024-01-12 02:34 | disposition home or self-care (01) ==
LOC: ER 01-12 00:12
PROVIDERS: Emergency Provider Student in an Organized Health Care Education/Training Program; PCP Nurse Practitioner Family
DX: M54.59 Other low back pain (principal)
CPT/HCPCS: 96372; 99283; J1885

== ENCOUNTER → 2024-01-16 00:44 | Outpatient (CLI) | payer MEDICARE, MEDICAID, SELFPAY ==
--- NOTE | 2024-01-16 | DI.MRI_ITS ---
Exam(s) MR LIMITED EXAM EXAM: MR LIMITED EXAM CLINICAL HISTORY: SPINAL STENOSIS,M48.061,NEUROGENIC CLAUDICAT,M54.50,LOW BACK PAIN,RADICULOP. TECHNIQUE: Multiplanar multisequence MRI of the Lumbar spine was performed. COMPARISON: CT CT CHEST PE CTA from 11/05/[address] LUMBAR SPINE WO from 01/02/2024 FINDINGS: The patient was unable to complete the examination due to anxiety. The provider's office was contact ed and made aware of the situation. No axial images were obtained. The examination is limited due to patient motion artifact. Bones: The last intervertebral disc space is designated the L5/S1 level for the numbering purpose of this examination. The vertebral body heights are well maintained. Alignment is satisfactory. Mild d egenerative endplate signal changes are present. Cord: The conus tip ends at the L1 level. It is of normal size and signal intensity. T12-L1: No disc herniations or bulges are present. No obvious central spinal canal or neural foramina l stenosis. L1-2: No disc herniations or bulges are present. No obvious central spinal canal or neural foraminal stenosis. L2-3: No disc herniations or bulges are present. No obvious central spinal canal or neural foraminal stenosis. L3-4: There is a mild diffuse disc bulge. No obvious central spinal canal or neural foraminal stenos is. L4-5: There is a mild diffuse disc bulge. There is mild narrowing of the neural foramen bilaterally at L4-L5.No obvious central spinal canal stenosis. L5-S1: There is a mild diffuse disc bulge. No obvious central spinal canal or neural foraminal steno sis. IMPRESSION: 1. This is a limited examination. The patient was unable to complete the examination due to anxiety. The examination is limited due to patient motion artifact. 2. No obvious central spinal canal narrowing. 3. Degenerative changes seen at the disc levels with mild narrowing of the neural foramen bilaterally at L4-L5. DATA REPOSITORY:
== END ==
PROVIDERS: PCP Nurse Practitioner Family; Visit Provider Nurse Practitioner Family
DX: M48.061 Spinal stenosis, lumbar region without neurogenic claudication (principal)
CPT/HCPCS: 76498

== ENCOUNTER 2024-02-03 15:24 | Outpatient (REF) | payer MEDICARE, MEDICAID, SELFPAY ==
[2024-02-03 15:30] LABS: HCT 38.6 % (36.0-46.0); HGB 12.7 g/dL (11.2-15.7); MCH 28.9 pg (27.0-33.0); MCHC 32.9 % (32.0-36.0); MCV 88 fL (80-95); MPV 9.6 fL (8.0-11.0); Platelet Count 249 10^3/uL (130-400); RDW 14.7 % (11.7-14.6); RDW-SD 47.1 fL; WBC 7.53 10^3/uL (4.4-10.8)
[2024-02-03 16:12] LABS: ALT 14 U/L (14-59); AST 18 U/L (15-37); Albumin 2.5 g/dL (3.4-5.0); Alkaline Phosphatase 77 U/L (46-116); Anion Gap 9.1 mmol/L (3-11); BUN 7 mg/dL (7-18); Bilirubin, Total 0.1 mg/dL (0.2-1.0); CO2 26.9 mmol/L (21.0-32.0); CREATININE 0.7 mg/dL (0.55-1.02); Calcium 8.9 mg/dL (8.5-10.1); Chloride 103 mmol/L (98-107); Estimated GFR 105.95 (mL/min/1.73m2); Glucose 130 mg/dL (74-106); NT-proBNP 7160 pg/mL (<300); Potassium 4.3 mmol/L (3.5-5.1); Sodium 139 mmol/L (136-145); Total Protein 7.2 g/dL (6.4-8.2)
[2024-02-03 16:35] LABS: Hemoglobin A1C 7.7 % (<5.7)
== END 2024-02-03 15:25 | disposition home or self-care (01) ==
LOC: NCHCN 15:24
PROVIDERS: PCP Nurse Practitioner Family; Visit Provider Nurse Practitioner Family
DX: E11.9 Type 2 diabetes mellitus without complications (principal)
CPT/HCPCS: 80053; 85027; 83036; 83880

== ENCOUNTER → 2024-02-05 01:59 | Outpatient (CLI) | payer MEDICARE, MEDICAID, SELFPAY ==
--- NOTE | 2024-02-05 | DI.MRI_ITS ---
Exam(s) MR LUMBAR SPINE WO EXAM: MR LUMBAR SPINE WO CLINICAL HISTORY: LOW BACK PAIN,M54.50,SPINAL STENOSIS,M48.061,RADICULOPATHY,M54.17. TECHNIQUE: Multiplanar multisequence MRI of the Lumbar spine was performed. COMPARISON: CT CT LUMBAR SPINE WO from 01/02/2024 MR MR LIMITED EXAM from 01/16/2024 FINDINGS: Conus medullaris is at normal level. There is no evidence of conus mass nor subjacent clumping of in trathecal nerve roots to suggest arachnoiditis. The distal thecal sac appears unremarkable.There is no evidence of Tarlov intrasacral cysts nor other significant findings within the sacral canal Bones:There are no fractures nor ominous osseous lesions in the lumbar vertebral bodies and visualize d sacrum. With respect to the individual levels... T12-L1: Unremarkable L1-2: Normal disc height and signal. No disc herniation nor central canal stenosis.No foraminal steno sis L2-3: Normal disc height. No disc herniation nor central canal stenosis.No foraminal stenosis.No face t arthropathy. L3-4: Normal disc height and signal. There is broad symmetrical annular bulging without a distinct d isc herniation. Central canal dimensions are lower normal. No foraminal stenosis. No significant f acet arthropathy. L4-5: Normal disc height and signal. Broad symmetrical annular bulging which flattens the anterior t hecal sac. Central canal dimensions are lower normal. There is no significant foraminal stenosis. Mild degenerative changes in both facet joints. L5-S1: Normal disc height and signal. On the left side at this level there is a finding which is mos t probably degenerative synovial cyst coming off of the anterior aspect of the significantly degenera bhargavi left facet joint, this measuring 9 by 7 by 8 mm. It projects into the medial aspect of the exiti ng neural foramen but does not appear to deflect the main exiting nerve root at this level. Similar findings not seen on the opposite-right side despite the fact that there is also significant degenera tive change in the right facet joint at this level. Soft tissues: There is some FLAIR bright signal evident in the soft tissues behind the spinal canal at L5 level which is probably related to the bilateral L5-S1 facet arthropathy. IMPRESSION: 1. The main finding here is on the left side at L5-S1 level where there appears to be a 9 x 7 x 8 mm degenerative synovial cyst coming off of the anterior aspect of the significantly degenerated left L5 -S1 facet joint. This occupies part of the left lateral recess at this level. This is also contiguous with the posterior aspect of the left side of the disc at this level, however , I feel it has more the appearance of a degenerative synovial cyst than an actual disc protrusion. DATA REPOSITORY:
== END ==
PROVIDERS: PCP Nurse Practitioner Family; Visit Provider Nurse Practitioner Family
DX: M51.37 Other intervertebral disc degeneration, lumbosacral region (principal)
CPT/HCPCS: 72148

== ENCOUNTER 2024-02-13 23:51 | Emergency (ER) | payer MEDICARE, MEDICAID, SELFPAY ==
--- NOTE | 2024-02-13 23:45 | RT.EKG_ITS ---
APPROVED REPORT Exam: Resting ECG Reason for Exam: Difficulty breathing Patient Location: E HR:98 bpm ECG Measurements Heart Rate 98 AXIS IA 142 P 57 QRSd 86 QRS 71 QT 363 T 46 QTc 464 Conclusion Sinus rhythm...normal P axis, V-rate 60- 99 Physician: no stemi
[2024-02-13 23:52] VITALS: O2SAT 95
[2024-02-13 23:53] VITALS: BP 172/102; PULSE 101; O2SAT 98
[2024-02-13 23:54] VITALS: BP 172/102; PULSE 102; RESP 19; TEMP 36.5; O2SAT 89
[2024-02-13 23:58] VITALS: BP 186/83; PULSE 98; RESP 21; TEMP 36.5; O2SAT 95
[2024-02-14] VITALS (91 sets, daily range): BP systolic 137–200; BP diastolic 45–155; PULSE 79–112; RESP 12–25; O2SAT 88–98
[2024-02-14] MEDS: Albuterol/Ipratropium 3 ML UPD VIAL UPD (00:16)
[2024-02-14] MEDS: methylPREDNISolone SUCC 125 MG VIAL IVP (00:16)
[2024-02-14] MEDS: Normal Saline 500 ML IV (00:17)
[2024-02-14 00:21] LABS: BE (Venous) 5 mmol/L (-2-3); HCO3 (Venous) 30 mmol/L (23-28); O2 Sat (Venous) 84 %; TCO2 (Venous) 28 mmol/L (24-29); pCO2 (Venous) 53 mmHg (41-51); pH (Venous) 7.37 (7.31-7.41); pO2 (Venous) 47 mmHg
[2024-02-14 00:22] LABS: Lactate 1.1 mmol/L (0.6-1.4)
[2024-02-14 00:23] LABS: Absolute Basophil Count 0.04 10^3/uL (0.0-0.2); Absolute Eosinophil Count 0.05 10^3/uL (0.0-0.7); Absolute Lymphocyte Count 2.91 10^3/uL (1.2-3.4); Absolute Monocyte Count 0.46 10^3/uL (0.1-0.8); Absolute Neutrophil Count 6.97 10^3/uL (1.2-6.7); Basophils % 0.4; Eosinophils % 0.5; HCT 38.9 % (36.0-46.0); HGB 12.5 g/dL (11.2-15.7); Immature Grans % 0.9; Lymphocytes % 27.6; MCH 28.5 pg (27.0-33.0); MCHC 32.1 % (32.0-36.0); MCV 89 fL (80-95); MPV 8.8 fL (8.0-11.0); Monocytes % 4.4; Neutrophils % 66.2; Platelet Count 214 10^3/uL (130-400); RBC 4.38 10^6/uL (3.93-5.22); RDW 15.7 % (11.7-14.6); RDW-SD 50.6 fL; WBC 10.53 10^3/uL (4.4-10.8)
--- NOTE | 2024-02-14 00:30 | DI.RAD_ITS ---
Exam(s) XR PORTABLE CHEST AP EXAM: XR PORTABLE CHEST AP CLINICAL HISTORY: cough, sob, eval for pneumonia TECHNIQUE: 2D digital imaging was performed. COMPARISON: CR XR PORTABLE CHEST AP from 08/06/2023 FINDINGS: Exam limited by under penetration and multiple monitoring leads as well as oxygen tubing overlying th e patient. Lungs are suboptimally inflated. Basilar infiltrates are not excluded LUNGS: Clear. No pleural abnormality seen. HEART: Normal size. AORTA: Normal diameter. BONES: Old left rib fracture. Soft tissues: Unremarkable. IMPRESSION: Limited exam. No acute findings. DATA REPOSITORY: RADIATION DOSE DELIVERED:
--- NOTE | 2024-02-14 00:38 | W.ED.GENAD ---
Discharge Plan Discharge Details Chief Complaint: RespSymp Clinical Impression: COPD exacerbation, Depression Primary Care Provider: BRYCE SMITH ED Provider: Matty Palacio Home Meds and New Rx's Prescriptions: No Action (DME) Oxygen Tank See Rx Instructions .Route Qty: 1 0RF Rx Instructions: 2LPM with exertion dextroamphetamine-amphetamine [Adderall] 10 mg tablet 10 mg PO DAILY albuterol sulfate [Proventil HFA] 90 mcg/actuation HFA aerosol inhaler 2 puff inhalation Q6H PRN (Reason: shortness of breath or wheezing) Qty: 8.5 12RF ipratropium-albuterol 0.5 mg-3 mg(2.5 mg base)/3 mL solution for nebulization 3 ml UPD Q4H PRN PRN (Reason: shortness of breath or wheezing) Qty: 540 12RF Dulera 200-5 mcg/actuation HFA aerosol inhaler 2 puff inhalation BID Qty: 13 12RF Rx Instructions: Rinse mouth after use Spiriva Respimat 2.5 mcg/actuation mist 2 puff inhalation DAILY Qty: 4 12RF varenicline [Chantix Starting Month Box] 0.5 mg (11)- 1 mg (42) tablets,dose pack See Rx Instructions PO PER PKG DIR Qty: 53 0RF Rx Instructions: PO PER PKG DIR varenicline [Chantix Continuing Month Box] 1 mg tablet 1 mg PO BID Qty: 60 5RF Jardiance 25 mg tablet 25 mg PO DAILY prazosin 2 mg capsule 8 mg PO HS Patient Comments: TAKE ONE CAPSULE BY MOUTH AT BEDTIME albuterol sulfate 2.5 mg /3 mL (0.083 %) solution for nebulization 2.5 mg inhalation Q4H PRN buspirone 30 mg tablet 30 mg PO BID cyclobenzaprine 10 mg tablet 10 mg PO BID omeprazole 20 mg capsule,delayed release(DR/EC) 20 mg PO DAILY lisinopril 20 mg Tablet 20 mg PO DAILY divalproex [Depakote] 500 mg Tablet,Delayed Release (Dr/Ec) 1,000 mg PO QHS risperidone [Risperdal] 2 mg Tablet 4 mg PO HS Trulicity 3 mg/0.5 mL pen injector 1 device SUBCUT QWEEK Patient Comments: INJECT ONCE WEEKLY DIRECTED spironolactone 25 mg Tablet 25 mg PO DAILY Qty: 30 0RF lidocaine [Lidoderm] 5 % adhesive patch,medicated 1 patch Topical Q24H Qty: 15 0RF escitalopram oxalate 20 mg tablet 20 mg PO DAILY Patient Comments: TAKE 1 TABLET BY MOUTH DAILY ibuprofen 800 mg tablet 800 mg PO BID PRN Patient Comments: TAKE ONE TABLET BY MOUTH TWICE A DAY NEEDED furosemide [Lasix] 20 mg tablet 20 mg PO DAILY Qty: 14 0RF HPI General Date/Time Provider Initiated Documentation: 02/13/24 23:58. HPI Narrative: This is a 48-year-old female with a past medical history of COPD, currently smoking, ADHD, diabetes, hypertension, cholecystectomy and salpingectomy who presents today for evaluation of shortness of breath. Patient states that for the last 2 to 3 days she has had a mild to moderate cough, and been short of breath despite inhaler use. She denies chest pain. She denies fever or chills. She does admit to a cough that has been productive. She denies any other complaints. No recent surgeries long trips, or procedures. No other complaints at this time. As her symptoms worsen this evening, she did call EMS and she was brought to the ER. Patient's oxygen was 91% on their arrival. She was given 1 DuoNeb and brought to the ER for further assessment. Upon arrival oxygenation at 98%, she is feeling much better. Patient has no other complaints at this time. Related Data Home Medications Medication Instructions Recorded Confirmed divalproex 500 mg tablet,delayed 1,000 mg PO QHS 01/18/20 02/13/24 release (Depakote) lisinopril 20 mg tablet 20 mg PO DAILY 01/18/20 02/13/24 risperidone 2 mg tablet (Risperdal) 4 mg PO HS 01/18/20 02/13/24 dulaglutide 3 mg/0.5 mL 1 device subcut QWEEK 10/10/22 02/13/24 subcutaneous pen injector (Trulicity) ibuprofen 800 mg tablet 800 mg PO BID PRN 11/20/22 02/13/24 Oxygen #1 ea 12/13/22 02/13/24 dextroamphetamine-amphetamine 10 10 mg PO DAILY 03/31/23 02/13/24 mg tablet (Adderall) spironolactone 25 mg tablet 25 mg PO DAILY #30 tabs 05/06/23 02/13/24 furosemide 20 mg tablet (Lasix) 20 mg PO DAILY #14 tabs 06/13/23 02/13/24 albuterol sulfate 90 mcg/actuation 2 puff inhalation Q6H PRN 09/12/23 02/13/24 aerosol inhaler (Proventil HFA) shortness of breath or wheezing #8.5 grams ipratropium 0.5 mg-albuterol 3 mg 3 ml UPD Q4H PRN PRN shortness of 09/12/23 02/13/24 (2.5 mg base)/3 mL nebulization breath or wheezing #540 mL soln mometasone-formoterol HFA 200 2 puff inhalation BID #13 grams 09/12/23 02/13/24 mcg-5 mcg/actuation aerosol inhaler (Dulera) prazosin 2 mg capsule 8 mg PO HS 09/12/23 02/13/24 tiotropium bromide 2.5 2 puff inhalation DAILY #4 grams 09/12/23 02/13/24 mcg/actuation mist for inhalation (Spiriva Respimat) varenicline 0.5 mg (11)-1 mg (42) See Rx Instructions PO PER PKG DIR 09/12/23 02/13/24 tablets in a dose pack (Chantix #53 dose pk Starting Month Box) varenicline 1 mg tablet (Chantix 1 mg PO BID #60 tabs 09/12/23 02/13/24 Continuing Month Box) empagliflozin 25 mg tablet 25 mg PO DAILY 12/15/23 02/13/24 (Jardiance) lidocaine 5 % topical patch 1 patch topical Q24H #15 ea 01/02/24 02/13/24 (Lidoderm) albuterol sulfate 2.5 mg/3 mL 2.5 mg inhalation Q4H PRN 02/09/24 02/13/24 (0.083 %) solution for nebulization buspirone 30 mg tablet 30 mg PO BID 02/09/24 02/13/24 cyclobenzaprine 10 mg tablet 10 mg PO BID 02/09/24 02/13/24 omeprazole 20 mg capsule,delayed 20 mg PO DAILY 02/09/24 02/13/24 release escitalopram oxalate 20 mg tablet 20 mg PO DAILY 02/13/24 02/13/24 Previous Rx's Medication Instructions Recorded Oxygen #1 ea 12/13/22 spironolactone 25 mg tablet 25 mg PO DAILY #30 tabs 05/06/23 furosemide 20 mg tablet (Lasix) 20 mg PO DAILY #14 tabs 06/13/23 albuterol sulfate 90 mcg/actuation 2 puff inhalation Q6H PRN 09/12/23 aerosol inhaler (Proventil HFA) shortness of breath or wheezing #8.5 grams ipratropium 0.5 mg-albuterol 3 mg 3 ml UPD Q4H PRN PRN shortness of 09/12/23 (2.5 mg base)/3 mL nebulization breath or wheezing #540 mL soln mometasone-formoterol HFA 200 2 puff inhalation BID #13 grams 09/12/23 mcg-5 mcg/actuation aerosol inhaler (Dulera) tiotropium bromide 2.5 2 puff inhalation DAILY #4 grams 09/12/23 mcg/actuation mist for inhalation (Spiriva Respimat) varenicline 0.5 mg (11)-1 mg (42) See Rx Instructions PO PER PKG DIR 09/12/23 tablets in a dose pack (Chantix #53 dose pk Starting Month Box) varenicline 1 mg tablet (Chantix 1 mg PO BID #60 tabs 09/12/23 Continuing Month Box) lidocaine 5 % topical patch 1 patch topical Q24H #15 ea 01/02/24 (Lidoderm) Allergies Allergy/AdvReac Type Severity Reaction Status Date / Time bee pollen Allergy Hives Unverified 01/11/24 23:02 hazelnut Allergy Hives Unverified 01/11/24 23:02 peanut Allergy hallucinati Unverified 01/11/24 23:02 on tree nut Allergy hallucinati Unverified 01/11/24 23:02 on amoxicillin AdvReac Nausea Unverified 01/11/24 23:02 fluoxetine [From Prozac] AdvReac Nausea Unverified 01/11/24 23:02 trazodone AdvReac Weight gain Verified 01/11/24 23:02 abelox Allergy Hives Uncoded 01/11/24 23:02 General Stated Complaint: RespSymp ZACK: 2 Review of Systems All systems reviewed & are unremarkable except as noted in HPI and below Exam Narrative Exam Narrative: 1.Const: Well-nourished, Well-developed, appearing stated age 2.Eyes: PERRL, no conjunctival injection, and symmetrical lids. 3.ENT: Atraumatic external nose and ears. Moist MM. Neck: Symmetric, trachea midline, No thyromegaly. 4.CVS: +S1/S2, No murmurs or gallops. Peripheral pulses 2+ and equal in all extremities. Brisk capillary refill in all extremities. 5.RESP: Diffuse wheezes throughout, coarse breath sounds throughout. 6.GI: Soft, Nontender/Nondistended, No hepatosplenomegaly. No guarding or rebound. 7.MSK: Normocephalic/Atraumatic, Extremities w/o deformity or ttp No cyanosis or clubbing, Normal movement of all extremities. No pitting edema or calf tenderness 8.Skin: Warm, Dry. No rashes or lesions. 9.Neuro: deckhand sponge boat II-XII grossly intact. Sensation grossly intact, no focal neurologic deficits. 10.Psych: (AAO) x3. Appropriate mood and affect Course Vital Signs Vital signs: Vital Signs Pulse Oximetry 95 02/13/24 23:52 Temperature 36.5 C 02/13/24 23:58 Temperature Source Temporal Artery Scan 02/13/24 23:58 Pulse 102 H 02/14/24 00:31 Pulse 101 H 02/14/24 00:31 Respiratory Rate 16 02/14/24 00:31 Respiratory Effort Short of Breath, Labored 02/13/24 23:58 Respiratory Depth Normal 02/13/24 23:58 Blood Pressure 164/72 H 02/14/24 00:31 Blood Pressure Mean 107 02/14/24 00:31 Blood Pressure Position Sitting 02/13/24 23:58 Pulse Oximetry 91 L 02/14/24 00:31 Oxygen Delivery Method Non-Rebreather 02/13/24 23:58 Oxygen Flow Rate 2 02/13/24 23:58 Pain Level 9 02/13/24 23:58 Lab/Test Results Lab/Test Results: Laboratory Tests Range/Units 02/14/24 00:14 WBC (4.4-10.8) 10^3/uL 10.53 RBC (3.93-5.22) 10^6/uL 4.38 Hgb (11.2-15.7) g/dL 12.5 Hct (36.0-46.0) % 38.9 MCV (80-95) fL 89 MCH (27.0-33.0) pg 28.5 MCHC (32.0-36.0) % 32.1 RDW (11.7-14.6) % 15.7 H Plt Count (130-400) 10^3/uL 214 MPV (8.0-11.0) fL 8.8 Immature Gran % 0.9 Neutrophils % 66.2 Lymphocytes % 27.6 Monocytes % 4.4 Eosinophils % 0.5 Basophils % 0.4 Nucleated RBC % (0.0-0.3) % 0.0 Absolute Neutrophils (1.2-6.7) 10^3/uL 6.97 H Absolute Lymphocytes (1.2-3.4) 10^3/uL 2.91 Absolute Monocytes (0.1-0.8) 10^3/uL 0.46 Absolute Eosinophils (0.0-0.7) 10^3/uL 0.05 Absolute Basophils (0.0-0.2) 10^3/uL 0.04 VBG pH (7.31-7.41) 7.37 VBG pCO2 (41-51) mmHg 53 H VBG pO2 mmHg 47 VBG HCO3 (23-28) mmol/L 30 H VBG Total CO2 (24-29) mmol/L 28 VBG O2 Saturation % 84 VBG Base Excess (-2-3) mmol/L 5 H VBG Lactate (0.6-1.4) mmol/L 1.1 Medical Decision Making This is a 48-year-old female with a past medical history of COPD, currently smoking, ADHD, diabetes, hypertension, cholecystectomy and salpingectomy who presents today for evaluation of shortness of breath. Patient states that for the last 2 to 3 days she has had a mild to moderate cough, and been short of breath despite inhaler use. She denies chest pain. She denies fever or chills. She does admit to a cough that has been productive. She denies any other complaints. No recent surgeries long trips, or procedures. No other complaints at this time. As her symptoms worsen this evening, she did call EMS and she was brought to the ER. Patient's oxygen was 91% on their arrival. She was given 1 DuoNeb and brought to the ER for further assessment. Upon arrival oxygenation at 98%, she is feeling much better. Patient has no other complaints at this time. Exam demonstrates well-appearing female, mild cough, rhonchorous breath sounds diffuse wheezes. Oxygenation is around 97 to 98% on room air at this time. Will give an additional breathing treatment, give steroids for suspected COPD exacerbation. Differential also includes pneumonia, we will get an x-ray to evaluate for this. Symptoms appear inconsistent with ACS or PE. EKG benign, no evidence of STEMI. 3:21 AM After a single breathing treatment and steroids patient is feeling much better. Oxygenation remains excellent at around 96% on room air. Patient's laboratory workup is returned stable, troponin normal, no white count bandemia or left shift. X-ray negative. pCO2 at 53 with a normal pH of 7.37, electrolytes normal, proBNP slightly high at 4600, however this appears to be around her baseline and chest x-ray shows no signs of congestive heart failure. After the patient was medically stabilized and we discussed her current scenario she did bring up that she has felt quite depressed over the last 3 days. She states that she would harm herself by taking pills, however she does not want to do something like that right now. We did contact mental health on her behalf, and after they had a discussion with her, the request was to keep her here throughout the night for reassessment in the morning. Patient is medically stable and cleared at this point. Will continue to monitor here until morning. Patient will be signed out to my colleague for follow-up with mental health and reassessment. 6 AM Patient remained stable, throughout the night she had no more hypoxemia. She feels stable. Mental health will come and reassess in the morning. Patient will be signed out to my colleague for reassessment. FINDINGS: Lungs: Unremarkable. No consolidation. Pleural spaces: Unremarkable. No pleural effusion. No pneumothorax. Heart/Mediastinum: Unremarkable. No cardiomegaly. Bones/joints: Unremarkable. IMPRESSION: No acute findings. Thank you for allowing us to participate in the care of your patient. Dictated and Authenticated by: Khloe Faith MD 02/14/2024 1:31 AM Eastern Time ([place] & [place]) Quality:SDOH Health Related Social Needs: No Data to Display PFSH All Active Problems (Updated 02/14/24 @ 05:53 by Matty Palacio DO) Depression (Chronic) COPD exacerbation (Acute) Spinal stenosis (Acute) Left ventricular hypertrophy (Acute) Heart failure (Acute) Migraine (Chronic) Post traumatic stress disorder (Acute) Schizoaffective disorder (Acute) Hyperlipidemia (Acute) Obesity hypoventilation syndrome (Acute) Respiratory failure with hypoxia and hypercapnia (Chronic) Shortness of breath (Acute) Acute asthma exacerbation (Acute) Respiratory failure with hypoxia (Acute) Nicotine dependence, cigarettes, uncomplicated (Acute) Recurrent pneumonia (Acute) Asthma (Chronic) Vitamin D deficiency (Acute) Pharyngitis (Acute) Thrush (Acute) Type 2 diabetes mellitus (Chronic) Multifocal pneumonia (Acute) Pneumonia (Acute) Acute bronchitis (Acute) Tobacco abuse (Chronic) Encounter for medication refill (Acute) Medical History COPD exacerbation COPD exacerbation H/O suicide attempt ADHD Anxiety Bipolar disorder Acute exacerbation of COPD with asthma Non-insulin dependent diabetes mellitus Obesity (BMI 30.0-34.9) Hypertension Hypoxia Acute asthma exacerbation Acute pneumonia Surgical History Status post bilateral salpingectomy S/P cholecystectomy Family History Other Adopted Social History Smoking/Tobacco Use Status: Current every day Tobacco Type: cigarettes Smoking packs per day: 0.25 Smoking cigarettes per day: 5.0 Years smoked: 40 Smoking pack-years: 10.00 Tobacco: How many years used: 40 Smoking risk assessment performed?: Yes Alcohol Intake: never Drug use: Occasionally Substance use type: marijuana Details: smokes marijuana about once per month 01/11/24 Housing: apartment Do you feel safe at home: Yes Do you feel safe in your relationship?: Yes Additional Social history: May be homeless Lives with on [address] in [place]. She is disabled with her medical and mental health conditions. 22 year old daughter in [place].
[2024-02-14 00:46] LABS: ALT 36 U/L (14-59); AST 20 U/L (15-37); Albumin 2.5 g/dL (3.4-5.0); Alkaline Phosphatase 218 U/L (46-116); Anion Gap 6.4 mmol/L (3-11); BUN 16 mg/dL (7-18); Bilirubin, Total 0.2 mg/dL (0.2-1.0); CO2 29.6 mmol/L (21.0-32.0); CREATININE 0.8 mg/dL (0.55-1.02); Calcium 8.6 mg/dL (8.5-10.1); Chloride 101 mmol/L (98-107); Estimated GFR 90.27 (mL/min/1.73m2); Glucose 233 mg/dL (74-106); NT-proBNP 4642 pg/mL (<300); Potassium 3.7 mmol/L (3.5-5.1); Sodium 137 mmol/L (136-145); Total Protein 7.3 g/dL (6.4-8.2); Troponin I < 50 ng/L (< or =60)
--- NOTE | 2024-02-14 01:32 | DI.VRAD_ITS ---
PROCEDURE INFORMATION: Exam: XR Chest Exam date and time: 02/14/2024 1:02 AM Age: 48 years old Clinical indication: Cough and shortness of breath; Additional info: Cough, SOB, eval for pneumonia TECHNIQUE: Imaging protocol: Radiologic exam of the chest. Views: 1 view. COMPARISON: CR XR PORTABLE CHEST AP 08/06/2023 6:40 PM FINDINGS: Lungs: Unremarkable. No consolidation. Pleural spaces: Unremarkable. No pleural effusion. No pneumothorax. Heart/Mediastinum: Unremarkable. No cardiomegaly. Bones/joints: Unremarkable. IMPRESSION: No acute findings. Dictated and Authenticated by: Khloe Faith MD. Ordering:YING Starr MD
[2024-02-14 03:43] LABS: Troponin I < 50 ng/L (< or =60)
--- NOTE | 2024-02-14 08:34 | ED.PROG_ITS ---
Date of service: 02/14/24 Time of Service: 08:34 Medical Decision Making Patient accepted in signout. She was pending reevaluation by mental health services to see how she felt this morning regarding feelings of depression and suicidal ideation. On my evaluation, the patient says that that she feels much better now. She had a fight with her last night. She has no thoughts of suicide or plan for suicide. She would like to be discharged home. At this time I feel she is stable for discharge and feel comfortable regarding her prior complaints of SI. Given her COPD exacerbation will prescribe a steroid course. Albuterol refilled. Her home medications were given. Return precautions advised. Discharged in stable condition. Quality:[facility] Health Related Social Needs: No Data to Display Sign Out Sign Out Data: Sign Out Comment: Presented via EMS for shortness of breath/COPD. Notable wheezes. Improved with breathing treatments. No hypoxemia whatsoever. After medically cleared the patient did admit to depression and some suicidality. Mental health initially reassess in the evening, but would like to reassess aga in in the morning for potential placement versus discharge. If patient stable for discharge, would recommend short course of steroids for a mild asthma/COPD exacerbation. Last updated by Matty Palacio DO at 02/14/24 05:54 Discharge Plan Disposition Patient Disposition: Home Condition: Stable Discharge Details Clinical Impression: COPD exacerbation, Depression Primary Care Provider: BRYCE SMITH ED Provider: Jenni Colindres Home Meds and New Rx's Prescriptions: New prednisone 20 mg tablet 40 mg PO DAILY 5 Days Qty: 10 0RF Continued albuterol sulfate 2.5 mg /3 mL (0.083 %) solution for nebulization 2.5 mg inhalation Q4H PRNQty: 90 0RF No Action (DME) Oxygen Tank See Rx Instructions .Route Qty: 1 0RF Rx Instructions: 2LPM with exertion dextroamphetamine-amphetamine [Adderall] 10 mg tablet 10 mg PO DAILY albuterol sulfate [Proventil HFA] 90 mcg/actuation HFA aerosol inhaler 2 puff inhalation Q6H PRN (Reason: shortness of breath or wheezing) Qty: 8.5 12RF ipratropium-albuterol 0.5 mg-3 mg(2.5 mg base)/3 mL solution for nebulization 3 ml UPD Q4H PRN PRN (Reason: shortness of breath or wheezing) Qty: 540 12RF Dulera 200-5 mcg/actuation HFA aerosol inhaler 2 puff inhalation BID Qty: 13 12RF Rx Instructions: Rinse mouth after use Spiriva Respimat 2.5 mcg/actuation mist 2 puff inhalation DAILY Qty: 4 12RF varenicline [Chantix Starting Month Box] 0.5 mg (11)- 1 mg (42) tablets,dose p ack See Rx Instructions PO PER PKG DIR Qty: 53 0RF Rx Instructions: PO PER PKG DIR varenicline [Chantix Continuing Month Box] 1 mg tablet 1 mg PO BID Qty: 60 5RF Jardiance 25 mg tablet 25 mg PO DAILY prazosin 2 mg capsule 8 mg PO HS Patient Comments: TAKE ONE CAPSULE BY MOUTH AT BEDTIME buspirone 30 mg tablet 30 mg PO BID cyclobenzaprine 10 mg tablet 10 mg PO BID omeprazole 20 mg capsule,delayed release(DR/EC) 20 mg PO DAILY lisinopril 20 mg Tablet 20 mg PO DAILY divalproex [Depakote] 500 mg Tablet,Delayed Release (Dr/Ec) 1,000 mg PO QHS risperidone [Risperdal] 2 mg Tablet 4 mg PO HS Trulicity 3 mg/0.5 mL pen injector 1 device SUBCUT QWEEK Patient Comments: INJECT ONCE WEEKLY DIRECTED spironolactone 25 mg Tablet 25 mg PO DAILY Qty: 30 0RF lidocaine [Lidoderm] 5 % adhesive patch,medicated 1 patch Topical Q24H Qty: 15 0RF escitalopram oxalate 20 mg tablet 20 mg PO DAILY Patient Comments: TAKE 1 TABLET BY MOUTH DAILY ibuprofen 800 mg tablet 800 mg PO BID PRN Patient Comments: TAKE ONE TABLET BY MOUTH TWICE A DAY NEEDED furosemide [Lasix] 20 mg tablet 20 mg PO DAILY Qty: 14 0RF Discharge Instructions Additional Instructions: Take steroids as prescribed and use your nebulizer or your inhaler every 4 hours for cough. Please follow-up with your primary care provider for additional evaluation of your chronic COPD. Follow-up with your mental health providers regarding any ongoing depression or issues with your new medications.
[2024-02-14] MEDS: Cyclobenzaprine 10 MG TAB PO (08:35)
[2024-02-14] MEDS: Furosemide 20 MG TAB PO (08:36)
[2024-02-14] MEDS: busPIRone 15 MG TAB 30 MG PO (08:40)
[2024-02-14] MEDS: Empaglifozin 25 MG TAB PO (08:40)
[2024-02-14] MEDS: Escitalopram 20 MG TAB PO (08:40)
== END 2024-02-14 08:46 | disposition home or self-care (01) ==
PROVIDERS: Student in an Organized Health Care Education/Training Program; Emergency Provider Emergency Medicine; PCP Nurse Practitioner Family
DX: J44.1 Chronic obstructive pulmonary disease with (acute) exacerbation (principal); E11.9 Type 2 diabetes mellitus without complications; I10 Essential (primary) hypertension; F17.210 Nicotine dependence, cigarettes, uncomplicated; Z79.84 Long term (current) use of oral hypoglycemic drugs
CPT/HCPCS: 00123; 80053; 82805; 93005; 96361; 96374; 99284; 71045; 83605; 83880; 84484; 85025; 93010; J2930; J7620

== ENCOUNTER 2024-02-20 13:56 | Outpatient (CLI) | payer MEDICARE, MEDICAID, SELFPAY ==
--- NOTE | 2024-02-20 13:45 | RT.EKG_ITS ---
APPROVED REPORT Exam: Resting ECG Reason for Exam: NPW,Baseline Needed Patient Location: O HR:105 bpm ECG Measurements Heart Rate 105 AXIS CA 133 P 44 QRSd 86 QRS 58 QT 337 T 37 QTc 446 Conclusion Sinus tachycardia...rate> 99 Poor R wave progression possible old anterior infarct
== END 2024-02-20 13:57 | disposition home or self-care (01) ==
LOC: DI.CARD 13:58
PROVIDERS: PCP Nurse Practitioner Family; Referring Provider Nurse Practitioner Family; Visit Provider Internal Medicine Cardiovascular Disease
DX: J44.1 Chronic obstructive pulmonary disease with (acute) exacerbation (principal); I50.9 Heart failure, unspecified
CPT/HCPCS: 93010

== ENCOUNTER → 2024-02-20 13:56 | Outpatient (BNVA) | payer MEDICARE, MEDICAID, SELFPAY | PROVIDERS: PCP Nurse Practitioner Family; Referring Provider Nurse Practitioner Family; Visit Provider Internal Medicine Cardiovascular Disease | DX: R94.31 Abnormal electrocardiogram [ECG] [EKG] (principal); F17.210 Nicotine dependence, cigarettes, uncomplicated; J45.909 Unspecified asthma, uncomplicated; E66.2 Morbid (severe) obesity with alveolar hypoventilation | CPT/HCPCS: 93005; 99214 ==

== ENCOUNTER → 2024-03-15 15:27 | Outpatient (BNVA) | payer MEDICARE, MEDICAID, SELFPAY | PROVIDERS: PCP Nurse Practitioner Family; Referring Provider Nurse Practitioner Family; Visit Provider Student in an Organized Health Care Education/Training Program | DX: J96.91 Respiratory failure, unspecified with hypoxia (principal); J96.92 Respiratory failure, unspecified with hypercapnia; J45.909 Unspecified asthma, uncomplicated; F17.210 Nicotine dependence, cigarettes, uncomplicated; E66.2 Morbid (severe) obesity with alveolar hypoventilation | CPT/HCPCS: 99214 ==

== ENCOUNTER → 2024-05-14 00:22 | Outpatient (CLI) | payer MEDICARE, MEDICAID, SELFPAY ==
--- NOTE | 2024-05-14 14:11 | DI.RAD_ITS ---
Exam(s) XR LUMBAR SPINE COMPLETE EXAM: XR LUMBAR SPINE COMPLETE CLINICAL HISTORY: LOW BACK PAIN, M54.50. TECHNIQUE: 2D digital imaging was performed. Five views. COMPARISON: CR XR PORTABLE CHEST AP from 08/06/[address] LUMBAR SPINE WO from 01/02/2024 FINDINGS: BONES: There are 4 lumbar type vertebral bodies. No fracture or destructive lesion. Vertebral body h eights are maintained. facet hypertrophy present at for at L4-5, more prominent on the left side. DISKS: Mild disc space narrowing at L3-4. The remain intervertebral disc spaces are maintained. ALIGNMENT: Lumbar spinal alignment is within normal limits. SOFT TISSUE: Normal. IMPRESSION: Mild degenerative disc changes. Facet degenerative changes at the lower lumbar levels. DATA REPOSITORY: RADIATION DOSE DELIVERED:
== END ==
PROVIDERS: PCP Nurse Practitioner Family; Visit Provider Nurse Practitioner Family
DX: M51.36 Other intervertebral disc degeneration, lumbar region (principal)
CPT/HCPCS: 72110

== ENCOUNTER → 2024-06-21 09:43 | Outpatient (BNVA) | payer MEDICARE, MEDICAID, SELFPAY | PROVIDERS: PCP Nurse Practitioner Family; Referring Provider Nurse Practitioner Family; Visit Provider Internal Medicine Critical Care Medicine | DX: I51.7 Cardiomegaly; J45.909 Unspecified asthma, uncomplicated; J96.11 Chronic respiratory failure with hypoxia; J96.12 Chronic respiratory failure with hypercapnia; F17.210 Nicotine dependence, cigarettes, uncomplicated; E66.9 Obesity, unspecified | CPT/HCPCS: 99214 ==

== ENCOUNTER → 2024-06-29 00:54 | Outpatient (CLI) | payer MEDICARE, MEDICAID, SELFPAY ==
--- NOTE | 2024-06-29 12:30 | DI.US_ITS ---
APPROVED REPORT EXAM: Comprehensive 2D, Doppler, and color-flow Echocardiogram Patient Location: Out-Patient Information Assurance Specialist: Connor Tapia RDCS (AE) Indications: ERIK, OHS, LVH, SOB, cardiomegaly Other Information Technically limited study due to body habitus, patient refused to finish exam. Conclusion Technically limited study Left ventricular chamber size wall thickness and systolic function appear grossly normal. EF is appr oximately 55%. No segmental wall motion abnormalities are identified Mildly dilated right atrium and right ventricle Normal left atrial size Mildly thickened mitral leaflets with mild regurgitation Mild tricuspid regurgitation. Estimated right ventricular systolic pressure is 48 mmHg Wall motion Left Ventricle The left ventricle is normal size. Mild concentric left ventricular hypertrophy. Right Ventricle Right ventricle is mildly dilated. Right ventricular systolic function is grossly normal. Atria The left atrium size is normal. Right atrium is mildly dilated. Aortic Valve The aortic valve is normal in structure. There is no aortic valvular stenosis. Mild aortic regurgitat ion. Mitral Valve Mildly thickened leaflets No evidence of mitral valve stenosis. Mild mitral regurgitation. Tricuspid Valve The tricuspid valve is normal in structure. There is no tricuspid valve stenosis. Mild tricuspid regu rgitation. Pulmonic Valve The pulmonary valve is normal in structure. There is no pulmonic valvular stenosis. Trace pulmonic re gurgitation. Great Vessels The aortic root is normal in size. The ascending aorta is normal in size. 2D Dimensions IVSD d PLAX 1.08 cm F: 0.6-1.0 Ao Root d 2.41 cm F: 2.7 - 3.3 LVPW d PLAX 1.10 cm F: 0.6 - 1.0 Ao Asc Diam d 3.29 cm F: 2.3 - 3.1 LVID d PLAX 4.94 cm F: 3.8 - 5.2 LVDs 3.36 cm F: 2.2 - 3.5 LV EF Teichholz 60.0 % FS 32.06 % LV EDV (Teich) 114.9 mL LV ESV (Teich) 45.9 mL Stroke Vol Index (Teich) 36.48 LA Volume LA Length A4C 4.4 cm LA Length A2C LA Area A4C s 11.43 cm2 LA Area A2C s LA Vol A4C A-L 25.37 mL LA Vol A2C A-L LA Vol Biplane A-L LA Vol A4C MOD 23.7 mL LA Vol A2C MOD LA Vol BP MOD RA Volume RA Area A4C 12.6 cm2 RA ESV A4C (A-L) 34.8mL RA Vol/BSA A4C A-L RA Length A4C 3.9 cm RA ESV A4C (MOD) 31.4mL LV Diastology MV E' medial 0.046 (>0.07 m/s) MV E Vmax 0.96 (0.4-1.3 m/s) MV E/E' MED 20.64 (<14) MV A Vmax 1.05 (0.4-1.3 m/s) MV E' lateral 0.075 (>0.1 m/s) E/A Ratio 0.9 MV E/E' LAT 12.77 (<14) MV E' Average 0.061 m/s MV E/E'(average) 15.78 Aortic Valve AoV Vmax 1.50 m/s LVOT Vmax 1.13 m/s AoV Peak Grad 49.6 mmHg LVOT Peak Grad 5.1 mmHg AoV Area (Vmax) 1.73 cm2 LVOT VTI 0.252 m AoV VTI 0.296 m LVOT Mean Grad 2.2 mmHg AoV Mean [place]. 1.05 m/s LVOT SV 57.85 mL AoV Mean Grad 5.0 mmHg LVOT Diam s 1.70 cm AoV Area (VTI) 1.95 cm2 AV Regurg Peak Gr. 8.97 mmHg Velocity Ratio 0.75 AR Decel [place] 3.3m/sec2 AR DT 1423 msec AR PHT 413 msec AR Vmax 4.75 m/s Mitral Valve MV DT 196 (160-240 msec) Pulmonary Valve PV Vmax 1.13 (0.5-1.5 m/s) RVOT Vmax 0.50 m/s PV Peak Grad 5.1 mmHg RVOT Peak Gr. 1.0 mmHg PV Mean [place] 0.72 m/s RVOT VTI 0.105 m PV Mean Grad 2.3 mmHg RVOT Mean Gr. 0.6 mmHg Tricuspid Valve TR Vmax 3.36 m/s TR Peak Grad 45.2 mmHg
== END ==
PROVIDERS: PCP Nurse Practitioner Family; Visit Provider Internal Medicine Critical Care Medicine
DX: I51.7 Cardiomegaly (principal)
CPT/HCPCS: 93306

== ENCOUNTER 2024-07-01 15:34 | Emergency (ER) | payer MEDICARE, MEDICAID, SELFPAY ==
[2024-07-01] VITALS (43 sets, daily range): BP systolic 131–208; BP diastolic 61–104; PULSE 83–101; RESP 12–31; TEMP 36.9; O2SAT 92–98
--- NOTE | 2024-07-01 15:30 | RT.EKG_ITS ---
APPROVED REPORT Exam: Resting ECG Reason for Exam: Dyspnea Patient Location: E HR:97 bpm ECG Measurements Heart Rate 97 AXIS [place] 137 P 68 QRSd 77 QRS 89 QT 351 T 44 QTc 446 Conclusion Sinus rhythm...normal P axis, V-rate 60- 99 Probable anterolateral infarct, old...Q>35mS, abnrm ST-T, V2-V6,I,aVL No acute ST changes. There are no significant changes compared to prior EKG performed on 02/13/2024 at 23:56.
--- NOTE | 2024-07-01 15:36 | ED.GENADUL_ITS ---
Discharge Plan Disposition Patient Disposition: Home Condition: Stable Discharge Details Clinical Impression: COPD exacerbation Primary Care Provider: BRYCE SMITH ED Provider: Ronaldo Cole Meds and New Rx's Prescriptions: New prednisone 20 mg tablet 40 mg PO DAILY Qty: 8 0RF Continued (DME) Oxygen Tank See Rx Instructions .Route Qty: 1 0RF Rx Instructions: 2LPM with exertion dextroamphetamine-amphetamine [Adderall] 10 mg tablet 10 mg PO DAILY pregabalin [Lyrica] 50 mg capsule 50 mg PO BID Patient Comments: prescribed by Bryce Smith, PCP albuterol sulfate [Proventil HFA] 90 mcg/actuation HFA aerosol inhaler 2 puff inhalation Q6H PRN (Reason: shortness of breath or wheezing) Qty: 8.5 12RF ipratropium-albuterol 0.5 mg-3 mg(2.5 mg base)/3 mL solution for nebulization 3 ml UPD Q4H PRN PRN (Reason: shortness of breath or wheezing) Qty: 540 12RF Dulera 200-5 mcg/actuation HFA aerosol inhaler 2 puff inhalation BID Qty: 13 12RF Rx Instructions: Rinse mouth after use Spiriva Respimat 2.5 mcg/actuation mist 2 puff inhalation DAILY Qty: 4 12RF Jardiance 25 mg tablet 25 mg PO DAILY prazosin 2 mg capsule 8 mg PO HS Patient Comments: TAKE ONE CAPSULE BY MOUTH AT BEDTIME buspirone 30 mg tablet 30 mg PO BID Patient Comments: reports she is taking 60mg BID cyclobenzaprine 10 mg tablet 10 mg PO BID omeprazole 20 mg capsule,delayed release(DR/EC) 20 mg PO DAILY lisinopril 20 mg Tablet 20 mg PO DAILY divalproex [Depakote] 500 mg Tablet,Delayed Release (Dr/Ec) 1,000 mg PO QHS risperidone [Risperdal] 2 mg Tablet 4 mg PO HS spironolactone 25 mg Tablet 25 mg PO DAILY Qty: 30 0RF escitalopram oxalate 20 mg tablet 20 mg PO DAILY Patient Comments: TAKE 1 TABLET BY MOUTH DAILY albuterol sulfate 2.5 mg /3 mL (0.083 %) solution for nebulization 2.5 mg inhalation Q4H PRNQty: 90 0RF ibuprofen 800 mg tablet 800 mg PO BID PRN Patient Comments: TAKE ONE TABLET BY MOUTH TWICE A DAY NEEDED furosemide [Lasix] 20 mg tablet 20 mg PO DAILY Qty: 14 0RF Discharge Instructions Additional Instructions: You were seen for shortness of breath which mostly is likely related to your concentrator not working. You did have wheezing and did receive multiple neb treatments so I will cover you with a burst of steroids. Otherwise you should continue your medications as before. Please follow-up with your primary care physician this coming week. Return to ED for any worsening shortness of breath, fever, neurologic change, new or worsening chest pain, other concerns. Referrals: BRYCE SMITH, PARAFFINER [Primary Care Provider] - HPI General Mode of arrival: EMS . Date/Time Provider Initiated Documentation: 07/01/24 15:36 . Limitations to Documentation: no limitations . Information obtained by: patient, EMS, RN notes reviewed and old records reviewed . HPI Narrative: Patient presenting to ED with difficulty breathing and chest pain. Patient reports having cough and increased wheeze over the last couple of days. Today had to go to an appointment and thought her battery was charged on her concentrator. However, it was not. She is typically on 3 L nasal cannula. Began having increased difficulty breathing, wheezing, chest pain and tightness. Has received a total of 4 DuoNeb treatments, 2 provided by EMS. She did not receive any Solu-Medrol. She did receive aspirin due to the complaint of chest pain. She denies any fever, nasal congestion, sore throat, earache. Does not typically get chest pain or tightness when she has wheezing and shortness of br eath. Denies any abdominal pain, nausea, vomiting. Denies any leg pain or leg swelling. Related Data Home Medications ?Medication ?Instructions ?Recorded ?Confirmed divalproex 500 mg tablet,delayed 1,000 mg PO QHS 01/18/20 07/01/24 release (Depakote) lisinopril 20 mg tablet 20 mg PO DAILY 01/18/20 07/01/24 risperidone 2 mg tablet (Risperdal) 4 mg PO HS 01/18/20 07/01/24 ibuprofen 800 mg tablet 800 mg PO BID PRN 11/20/22 07/01/24 Oxygen #1 ea 12/13/22 07/01/24 dextroamphetamine-amphetamine 10 10 mg PO DAILY 03/31/23 07/01/24 mg tablet (Adderall) spironolactone 25 mg tablet 25 mg PO DAILY #30 tabs 05/06/23 07/01/24 furosemide 20 mg tablet (Lasix) 20 mg PO DAILY #14 tabs 06/13/23 07/01/24 albuterol sulfate 90 mcg/actuation 2 puff inhalation Q6H PRN 09/12/23 07/01/24 aerosol inhaler (Proventil HFA) shortness of breath or wheezing #8.5 grams ipratropium 0.5 mg-albuterol 3 mg 3 ml UPD Q4H PRN PRN shortness of 09/12/23 07/01/24 (2.5 mg base)/3 mL nebulization breath or wheezing #540 mL soln mometasone-formoterol HFA 200 2 puff inhalation BID #13 grams 09/12/23 07/01/24 mcg-5 mcg/actuation aerosol inhaler (Dulera) prazosin 2 mg capsule 8 mg PO HS 09/12/23 07/01/24 tiotropium bromide 2.5 2 puff inhalation DAILY #4 grams 09/12/23 07/01/24 mcg/actuation mist for inhalation (Spiriva Respimat) empagliflozin 25 mg tablet 25 mg PO DAILY 12/15/23 07/01/24 (Jardiance) buspirone 30 mg tablet 30 mg PO BID 02/09/24 07/01/24 cyclobenzaprine 10 mg tablet 10 mg PO BID 02/09/24 07/01/24 omeprazole 20 mg capsule,delayed 20 mg PO DAILY 02/09/24 07/01/24 release escitalopram oxalate 20 mg tablet 20 mg PO DAILY 02/13/24 07/01/24 albuterol sulfate 2.5 mg/3 mL 2.5 mg (3 mL) inhalation Q4H PRN 02/14/24 07/01/24 (0.083 %) solution for nebulization #90 mL pregabalin 50 mg capsule (Lyrica) 50 mg PO BID 06/21/24 07/01/24 prednisone 20 mg tablet 40 mg (2 x 20 mg) PO DAILY #8 tabs 07/01/24 Previous Rx's ?Medication ?Instructions ?Recorded Oxygen #1 ea 12/13/22 spironolactone 25 mg tablet 25 mg PO DAILY #30 tabs 05/06/23 furosemide 20 mg tablet (Lasix) 20 mg PO DAILY #14 tabs 06/13/23 albuterol sulfate 90 mcg/actuation 2 puff inhalation Q6H PRN 09/12/23 aerosol inhaler (Proventil HFA) shortness of breath or wheezing #8.5 grams ipratropium 0.5 mg-albuterol 3 mg 3 ml UPD Q4H PRN PRN shortness of 09/12/23 (2.5 mg base)/3 mL nebulization breath or wheezing #540 mL soln mometasone-formoterol HFA 200 2 puff inhalation BID #13 grams 09/12/23 mcg-5 mcg/actuation aerosol inhaler (Dulera) tiotropium bromide 2.5 2 puff inhalation DAILY #4 grams 09/12/23 mcg/actuation mist for inhalation (Spiriva Respimat) albuterol sulfate 2.5 mg/3 mL 2.5 mg (3 mL) inhalation Q4H PRN 02/14/24 (0.083 %) solution for nebulization #90 mL prednisone 20 mg tablet 40 mg (2 x 20 mg) PO DAILY #8 tabs 07/01/24 Allergies Allergy/AdvReac Type Severity Reaction Status Date / Time bee pollen Allergy Hives Unverified 07/01/24 16:16 hazelnut Allergy Hives Unverified 07/01/24 16:16 peanut Allergy hallucinati Unverified 07/01/24 16:16 on tree nut Allergy hallucinati Unverified 07/01/24 16:16 on gabapentin AdvReac Severe vomiting Verified 07/01/24 16:16 varenicline (From Chantix) AdvReac Intermediate depression Verified 07/01/24 16:16 amoxicillin AdvReac Nausea Unverified 07/01/24 16:16 fluoxetine (From Prozac) AdvReac Nausea Unverified 07/01/24 16:16 trazodone AdvReac Weight gain Verified 07/01/24 16:16 abelox Allergy Hives Uncoded 07/01/24 16:16 General ZACK: 2 Review of Systems Narrative: Per HPI Exam Narrative Exam Narrative: Const: Obese female in NAD. VS per triage. HEENT: NC/AT. Normal facial exam. Neck: Supple. Trachea midline. Lungs: Normal respiratory effort. Lungs with wheeze and rhonchi, but decent air exchange. Cor: RRR without murmur. Good radial pulses. GI: Soft/ND/NT. Neuro: A+O x 3. Normal speech, mentation, gait. Cranial nerves II - XII grossly intact. No gross motor or sensory deficit. Ext: No C/C/E. No calf tenderness. Medical Decision Making Patient presenting to ED with complaint of shortness of breath and wheezing. Her oxygen concentrator was not working today, but she reports having some increased cough and wheezing over the last couple of days. She is complaining o f chest pain as well. Her EKG is sinus rhythm with no acute ST changes, unchanged from previous. She has received 4 DuoNeb's and 324 of aspirin. Will give Solu-Medrol and obtain labs, chest x-ray, reevaluate. She is low risk for PE and subsequently PERCs out. Patient's laboratory studies with a white count of 9.6 and hemoglobin 12.8. Chemistries unremarkable except for bicarb of 36.4 likely related to chronic CO2 retention. Glucose a little elevated at 270. Magnesium low at 1.6 and was repleted. Initial troponin negative. Chest x-ray per my read with no acute cardiopulmonary process. Radiology final read confirms same. On reevaluation patient continues to saturate in the mid 90s on her 3 L nasal cannula. Heart rate is normal. Lungs continue to be relatively clear. Will plan repeat troponin and VBG. Patient's repeat troponin is normal. VBG with pH 7.39, pCO2 of 55, bicarb 33. This is chronic baseline for the patient. Continues to rest comfortably. Blood pressure elevated here this evening so she was given her evening dose of prazosin. Will provide a quick steroid burst as she did require multiple nebs and was reporting some increased cough and wheezing. She will follow-up with primary care next week. Return precautions provided. Medical Records Medical records reviewed: Yes I reviewed the patient's medical records. Medical records narrative: pulmonary visit from end of May this year Imaging Data Radiologic Study: Attestation: I personally reviewed and interpreted this imaging study as follows: Imaging: X-Ray My impression: No acute process Lab Data Lab results reviewed: Yes I reviewed the patient's lab results. ECG Data Attestation: I personally reviewed and interpreted this ECG (s) as follows: Prior ECG tracings: available for review Interpretation: see EKG/MDM PFSH All Active Problems (Updated 07/01/24 @ 20:12 by Ronaldo Cole MD) COPD exacerbation (Acute) Spinal stenosis (Acute) Left ventricular hypertrophy (Acute) Heart failure (Acute) Migraine (Chronic) Nicotine dependence, cigarettes, uncomplicated (Acute) Vitamin D deficiency (Acute) Tobacco abuse (Chronic) Medical History Respiratory failure with hypoxia and hypercapnia Obesity hypoventilation syndrome Schizoaffective disorder Post traumatic stress disorder Hyperlipidemia Asthma H/O suicide attempt ADHD Anxiety Bipolar disorder Non-insulin dependent diabetes mellitus Obesity (BMI 30.0-34.9) Hypertension Hypoxia Surgical History Status post bilateral salpingectomy S/P cholecystectomy Family History Other Adopted Social History Smoking/Tobacco Use Status: Current every day Tobacco Type: cigarettes Smoking packs per day: 0.25 Smoking cigarettes per day: 5.0 Years smoked: 40 Smoking pack-years: 10.00 Tobacco: How many years used: 40 Smoking risk assessment performed?: Yes Alcohol Intake: never Drug use: Occasionally Substance use type: marijuana Details: smokes marijuana about once per month 01/11/24 Housing: apartment Do you feel safe at home: Yes Do you feel safe in your relationship?: Yes Additional Social history: May be homeless Lives with on [address] in [facility]. She is disabled with her medical and mental health conditions. 22 year old daughter in [place].
--- NOTE | 2024-07-01 15:45 | DI.RAD_ITS ---
Exam(s) XR CHEST 2V PA LATERAL EXAM: XR CHEST 2V PA LATERAL CLINICAL HISTORY: SOB TECHNIQUE: 2D digital imaging was performed. Two views. COMPARISON: CR,XR XR PORTABLE CHEST AP from 02/14/2024 FINDINGS: HEART: Enlarged, unchanged. Aorta: Not dilated. PULMONARY VASCULATURE: Normal. MEDIASTINUM: Unremarkable. LUNGS: Grossly clear. PLEURAL SPACE: No pleural effusion or pneumothorax. BONE:Old rib fractures. SOFT TISSUES: Unremarkable. IMPRESSION: No acute abnormality. DATA REPOSITORY: RADIATION DOSE DELIVERED:
[2024-07-01 15:59] LABS: Abs Immature Grans 0.07 10^3/uL (0.0-0.06); Absolute Basophil Count 0.02 10^3/uL (0.0-0.2); Absolute Eosinophil Count 0.15 10^3/uL (0.0-0.7); Absolute Lymphocyte Count 2.32 10^3/uL (1.2-3.4); Absolute Monocyte Count 0.33 10^3/uL (0.1-0.8); Absolute Neutrophil Count 6.68 10^3/uL (1.2-6.7); Basophils % 0.2 %; Eosinophils % 1.6 %; HCT 40.2 % (36.0-46.0); HGB 12.8 g/dL (11.2-15.7); Immature Grans % 0.7 %; Lymphocytes % 24.2 %; MCH 28.5 pg (27.0-33.0); MCHC 31.8 % (32.0-36.0); MCV 90 fL (80-95); MPV 8.8 fL (8.0-11.0); Monocytes % 3.4 %; Neutrophils % 69.9 %; Platelet Count 248 10^3/uL (130-400); RBC 4.49 10^6/uL (3.93-5.22); RDW 15.2 % (11.7-14.6); RDW-SD 49.9 fL; WBC 9.57 10^3/uL (4.4-10.8)
[2024-07-01] MEDS: methylPREDNISolone SUCC 125 MG VIAL IVP (16:13)
[2024-07-01 16:17] LABS: ALT 8 U/L (14-59); AST 10 U/L (15-37); Albumin 2.6 g/dL (3.4-5.0); Alkaline Phosphatase 104 U/L (46-116); Anion Gap 3.6 mmol/L (3-11); BUN 11 mg/dL (7-18); Bilirubin, Total 0.15 mg/dL (0.2-1.0); CO2 36.4 mmol/L (21.0-32.0); CREATININE 0.9 mg/dL (0.55-1.02); Calcium 8.8 mg/dL (8.5-10.1); Chloride 100 mmol/L (98-107); Estimated GFR 78.37 (mL/min/1.73m2); Glucose 270 mg/dL (74-106); Magnesium 1.6 mg/dL (1.8-2.4); Potassium 4.2 mmol/L (3.5-5.1); Sodium 140 mmol/L (136-145); Total Protein 7.2 g/dL (6.4-8.2); Troponin I < 50 ng/L (< or =60)
[2024-07-01] MEDS: MAGNESIUM SULFATE 2 GM/50 ML BAG IVINF (16:39)
[2024-07-01 18:36] LABS: BE (Venous) 8 mmol/L (-2-3); HCO3 (Venous) 33 mmol/L (23-28); O2 Sat (Venous) 93 %; TCO2 (Venous) 30 mmol/L (24-29); pCO2 (Venous) 55 mmHg (41-51); pH (Venous) 7.39 (7.31-7.41); pO2 (Venous) 66 mmHg
[2024-07-01 19:01] LABS: Troponin I < 50 ng/L (< or =60)
[2024-07-01] MEDS: Prazosin 1 MG CAP 8 MG PO (20:06)
== END 2024-07-01 20:14 | disposition home or self-care (01) ==
PROVIDERS: Emergency Provider Emergency Medicine; PCP Nurse Practitioner Family
DX: J44.1 Chronic obstructive pulmonary disease with (acute) exacerbation (principal); E11.9 Type 2 diabetes mellitus without complications; I10 Essential (primary) hypertension; E78.5 Hyperlipidemia, unspecified; Z79.84 Long term (current) use of oral hypoglycemic drugs; F17.210 Nicotine dependence, cigarettes, uncomplicated; Z99.81 Dependence on supplemental oxygen
CPT/HCPCS: 36415; 80053; 82805; 93005; 96365; 96366; 96375; 99285; 71046; 83735; 84484; 85025; 93010; 99284; J2919; J3475

== ENCOUNTER 2024-07-14 18:57 | Emergency (ER) | payer MEDICARE, MEDICAID, SELFPAY ==
[2024-07-14 18:51] VITALS: BP 171/92; PULSE 103; RESP 24; TEMP 36.3; O2SAT 92
== END 2024-07-14 22:44 | disposition left against medical advice (07) ==
LOC: ER 19:45
PROVIDERS: Emergency Provider Nurse Practitioner Family; PCP Nurse Practitioner Family
DX: Z53.21 Procedure and treatment not carried out due to patient leaving prior to being seen by health care provider (principal)
CPT/HCPCS: 99282; 87081

== ENCOUNTER → 2024-08-04 13:24 | Outpatient (BNVA) | payer MEDICARE, MEDICAID, SELFPAY | PROVIDERS: PCP Nurse Practitioner Family; Referring Provider Nurse Practitioner Family; Visit Provider Physician Assistant Surgical | DX: J45.909 Unspecified asthma, uncomplicated (principal); J96.11 Chronic respiratory failure with hypoxia; J96.12 Chronic respiratory failure with hypercapnia; E66.2 Morbid (severe) obesity with alveolar hypoventilation; F17.210 Nicotine dependence, cigarettes, uncomplicated | CPT/HCPCS: 99214 ==

== ENCOUNTER 2024-08-19 17:57 | Emergency (ER) | payer MEDICARE, MEDICAID, SELFPAY ==
[2024-08-19 18:00] VITALS: BP 172/109; PULSE 96; RESP 20; TEMP 36; O2SAT 96
[2024-08-19 18:32] VITALS: BP 146/88
[2024-08-19 18:42] LABS: *AMPHETAMINES SCREEN URINE Negative (Negative); *BARBITURATES SCREEN URINE Negative (Negative); *BENZODIAZEPINES SCREEN URINE Negative (Negative); Cannabinoids THC Positive (Negative); Cocaine Screen,Urine Negative (Negative); METHADONE URINE SCREEN Negative (Negative); OPIATES URINE SCREEN Negative (Negative); Tricyclic Antidepressants Negative (Negative)
[2024-08-19 18:43] LABS: Abs Immature Grans 0.04 10^3/uL (0.0-0.06); Absolute Basophil Count 0.05 10^3/uL (0.0-0.2); Absolute Eosinophil Count 0.16 10^3/uL (0.0-0.7); Absolute Lymphocyte Count 1.69 10^3/uL (1.2-3.4); Absolute Neutrophil Count 6.77 10^3/uL (1.2-6.7); Basophils % 0.5 %; Eosinophils % 1.7 %; HCT 46.6 % (36.0-46.0); HGB 14.7 g/dL (11.2-15.7); Immature Grans % 0.4 %; Lymphocytes % 18.3 %; MCH 28.2 pg (27.0-33.0); MCHC 31.5 % (32.0-36.0); MCV 89 fL (80-95); MPV 9.2 fL (8.0-11.0); Monocytes % 5.4 %; Neutrophils % 73.7 %; Platelet Count 215 10^3/uL (130-400); RBC 5.21 10^6/uL (3.93-5.22); RDW 16.1 % (11.7-14.6); RDW-SD 52.5 fL; WBC 9.21 10^3/uL (4.4-10.8)
--- NOTE | 2024-08-19 19:04 | ED.GENADUL_ITS ---
Discharge Plan Discharge Details Chief Complaint: PsychEval Primary Care Provider: BRYCE SMITH ED Provider: Demi Henderson Home Meds and New Rx's Prescriptions: No Action (DME) Oxygen Tank See Rx Instructions .Route Qty: 1 0RF Rx Instructions: 2LPM with exertion pregabalin [Lyrica] 50 mg capsule 50 mg PO BID Patient Comments: prescribed by Bryce Smith PCP ipratropium-albuterol 0.5 mg-3 mg(2.5 mg base)/3 mL solution for nebulization 3 ml UPD Q4H PRN PRN (Reason: shortness of breath or wheezing) Qty: 540 12RF Jardiance 25 mg tablet 25 mg PO DAILY Dulera 200-5 mcg/actuation HFA aerosol inhaler 2 puff inhalation BID Qty: 13 12RF Rx Instructions: Rinse mouth after use Spiriva Respimat 2.5 mcg/actuation mist 2 puff inhalation DAILY Qty: 4 12RF albuterol sulfate [Proventil HFA] 90 mcg/actuation HFA aerosol inhaler 2 puff inhalation Q6H PRN (Reason: shortness of breath or wheezing) Qty: 8.5 12RF prazosin 2 mg capsule 8 mg PO HS Patient Comments: TAKE ONE CAPSULE BY MOUTH AT BEDTIME buspirone 30 mg tablet 30 mg PO BID Patient Comments: reports she is taking 60mg BID cyclobenzaprine 10 mg tablet 10 mg PO BID omeprazole 20 mg capsule,delayed release(DR/EC) 20 mg PO DAILY lisinopril 20 mg Tablet 20 mg PO DAILY divalproex [Depakote] 500 mg Tablet,Delayed Release (Dr/Ec) 1,000 mg PO QHS risperidone [Risperdal] 2 mg Tablet 4 mg PO HS spironolactone 25 mg Tablet 25 mg PO DAILY Qty: 30 0RF escitalopram oxalate 20 mg tablet 20 mg PO DAILY Patient Comments: TAKE 1 TABLET BY MOUTH DAILY albuterol sulfate 2.5 mg /3 mL (0.083 %) solution for nebulization 2.5 mg inhalation Q4H PRNQty: 90 0RF Ozempic 0.25 mg or 0.5 mg (2 mg/3 mL) pen injector 2 mg SUBCUT .weekly Patient Comments: INJECT 0.25MG UNDER THE SKIN ONCE WEEKLY atomoxetine 40 mg capsule 40 mg PO DAILY Patient Comments: TAKE ONE CAPSULE BY MOUTH EVERY MORNING azithromycin 250 mg tablet 250 mg PO DAILY Patient Comments: TAKE 2 TABLETS BY MOUTH ONE DOSE ON DAY 1, THEN 1 TABLET DAILY ON DAYS 2-5 melatonin 10 mg capsule 10 mg PO HS PRN lidocaine 5 % adhesive patch,medicated 1 patch transdermal DAILY PRN Patient Comments: APPLY 1 PATCH TOPICALLY UP TO 12 HOURS AND OFF FOR 12 HOURS Trulicity 4.5 mg/0.5 mL pen injector 3 mg SUBCUT ONCE Patient Comments: INJECT 4.5MG UNDER THE SKIN ONCE WEEKLY DIRECTED ibuprofen 800 mg tablet 800 mg PO BID PRN Patient Comments: TAKE ONE TABLET BY MOUTH TWICE A DAY NEEDED furosemide [Lasix] 20 mg tablet 20 mg PO DAILY Qty: 14 0RF HPI General Date/Time Provider Initiated Documentation: 08/19/24 17:59 . HPI Narrative: Cecilia is a 48-year-old female with history of T2DM, asthma/COPD, heart failure, spinal stenosis, hypertension, and depression who presents to the emergency department today via EMS for evaluation of worsening depression with suicidal ideation with plan to take all of her medications. She reports that she had her psych meds changed a few months ago (Lexapro replaced Zoloft, Strattera replaced Adderall) and feels her depression has been acutely worse since then. Denies HI. She denies self-harm behaviors, EtOH use, substance use other than occasional marijuana. She does smoke approximately 5 cigarettes a day. She denies recent fever/chills, sore throat, cough, chest pain, shortness of breath/difficulty breathing, nausea/vomiting, change in p.o. intake, abdominal pain, change in bowel or bladder function, new rashes. She does have a candidal rash under her right breast which she attributes to moisture. She does take inhalers daily, says she often has wheezing at night and requires 3 L oxygen at night for COPD. She has been hospitalized multiple times for psychiatric care, most recently in 2007 at [facility] in [place]. Admits to multiple life stressors, including the of her father and her daughter no longer talking to him. Physical exam remarkable for tearful patient during exam, in no acute distress. She does have a macerated reddened rash under her right breast consistent with intertrigo. Easy work of breathing, faint pops and squeaks auscultated in upper lung wilkins. Normal heart sounds. Labs drawn to medically clear patient for psychiatric evaluation. No acute medical concerns at this time. Vital signs reassuring, mild hypertension noted. CBC, CMP, TSH, HCG, UDS all unremarkable (THC positive c/w pt's reported use) Cecilia was given DuoNeb for wheezing and nystatin powder for candidal intertrigo. PM meds ordered. Dulera inhaler nonformulary, discussed this with Cecilia- she reports that Symbicort would be an ok substituion, has tolerated this previously. Awaiting [facility] crisis evaluation. Handoff report given to Dr. Henderson, overnight attending. Related Data Home Medications ?Medication ?Instructions ?Recorded ?Confirmed divalproex 500 mg tablet,delayed 1,000 mg PO QHS 01/18/20 08/19/24 release (Depakote) lisinopril 20 mg tablet 20 mg PO DAILY 01/18/20 08/19/24 risperidone 2 mg tablet (Risperdal) 4 mg PO HS 01/18/20 08/19/24 ibuprofen 800 mg tablet 800 mg PO BID PRN 11/20/22 08/19/24 Oxygen #1 ea 12/13/22 08/19/24 spironolactone 25 mg tablet 25 mg PO DAILY #30 tabs 05/06/23 08/19/24 furosemide 20 mg tablet (Lasix) 20 mg PO DAILY #14 tabs 06/13/23 08/19/24 ipratropium 0.5 mg-albuterol 3 mg 3 ml UPD Q4H PRN PRN shortness of 09/12/23 08/19/24 (2.5 mg base)/3 mL nebulization breath or wheezing #540 mL soln prazosin 2 mg capsule 8 mg PO HS 09/12/23 08/19/24 empagliflozin 25 mg tablet 25 mg PO DAILY 12/15/23 08/19/24 (Jardiance) buspirone 30 mg tablet 30 mg PO BID 02/09/24 08/19/24 cyclobenzaprine 10 mg tablet 10 mg PO BID 02/09/24 08/19/24 omeprazole 20 mg capsule,delayed 20 mg PO DAILY 02/09/24 08/19/24 release escitalopram oxalate 20 mg tablet 20 mg PO DAILY 02/13/24 08/19/24 albuterol sulfate 2.5 mg/3 mL 2.5 mg (3 mL) inhalation Q4H PRN 02/14/24 08/19/24 (0.083 %) solution for nebulization #90 mL pregabalin 50 mg capsule (Lyrica) 50 mg PO BID 06/21/24 08/19/24 albuterol sulfate 90 mcg/actuation 2 puff inhalation Q6H PRN 08/04/24 08/19/24 aerosol inhaler (Proventil HFA) shortness of breath or wheezing #8.5 grams mometasone-formoterol HFA 200 2 puff inhalation BID #13 grams 08/04/24 08/19/24 mcg-5 mcg/actuation aerosol inhaler (Dulera) tiotropium bromide 2.5 2 puff inhalation DAILY #4 grams 08/04/24 08/19/24 mcg/actuation mist for inhalation (Spiriva Respimat) atomoxetine 40 mg capsule 40 mg PO DAILY 08/19/24 08/19/24 azithromycin 250 mg tablet 250 mg PO DAILY 08/19/24 08/19/24 dulaglutide 4.5 mg/0.5 mL 3 mg subcut ONCE 08/19/24 08/19/24 subcutaneous pen injector ([employer]) lidocaine 5 % topical patch 1 patch transdermal DAILY PRN 08/19/24 08/19/24 melatonin 10 mg capsule 10 mg PO HS PRN 08/19/24 08/19/24 semaglutide 0.25 mg or 0.5 mg (2 2 mg subcut .weekly 08/19/24 08/19/24 mg/3 mL) subcutaneous pen injector (Ozempic) Previous Rx's ?Medication ?Instructions ?Recorded Oxygen #1 ea 12/13/22 spironolactone 25 mg tablet 25 mg PO DAILY #30 tabs 05/06/23 furosemide 20 mg tablet (Lasix) 20 mg PO DAILY #14 tabs 06/13/23 ipratropium 0.5 mg-albuterol 3 mg 3 ml UPD Q4H PRN PRN shortness of 09/12/23 (2.5 mg base)/3 mL nebulization breath or wheezing #540 mL soln albuterol sulfate 2.5 mg/3 mL 2.5 mg (3 mL) inhalation Q4H PRN 02/14/24 (0.083 %) solution for nebulization #90 mL albuterol sulfate 90 mcg/actuation 2 puff inhalation Q6H PRN 08/04/24 aerosol inhaler (Proventil HFA) shortness of breath or wheezing #8.5 grams mometasone-formoterol HFA 200 2 puff inhalation BID #13 grams 08/04/24 mcg-5 mcg/actuation aerosol inhaler (Dulera) tiotropium bromide 2.5 2 puff inhalation DAILY #4 grams 08/04/24 mcg/actuation mist for inhalation (Spiriva Respimat) Allergies Allergy/AdvReac Type Severity Reaction Status Date / Time bee pollen Allergy Hives Unverified 08/19/24 18:08 hazelnut Allergy Hives Unverified 08/19/24 18:08 peanut Allergy hallucinati Unverified 08/19/24 18:08 on tree nut Allergy hallucinati Unverified 08/19/24 18:08 on gabapentin AdvReac Severe vomiting Verified 08/19/24 18:08 varenicline (From Chantix) AdvReac Intermediate depression Verified 08/19/24 18:08 amoxicillin AdvReac Nausea Unverified 08/19/24 18:08 fluoxetine (From Prozac) AdvReac Nausea Unverified 08/19/24 18:08 trazodone AdvReac Weight gain Verified 08/19/24 18:08 abelox Allergy Hives Uncoded 08/19/24 18:08 General Stated Complaint: PsychEval ZACK: 2 Review of Systems Narrative: see HPI Exam Const General: cooperative, healthy appearing, comfortable, no acute distress and anxious Nutritional Appearance: overweight Orientation: alert and oriented x3 Resp Effort & Inspection: normal respiratory effort and able to speak in complete sentences Auscultation: wheezes expiratory wheezes and scattered wheezes Cardio Rate: regular rate Rhythm: regular rhythm Skin Rashes: rashes noted (skin fold under R breast) Neuro General: patient alert, gait normal and moves all extremities Speech: speech normal Motor: muscle tone normal throughout Psych Appearance: grossly normal Speech and Movement: speech and movement normal Mood: anxious mood Affect: sad and blunted Attitude: cooperative Thought Content: suicidality Insight: insight good Course Vital Signs Vital signs: Vital Signs Temperature 36.0 C L 08/19/24 18:00 Pulse 96 H 08/19/24 18:00 Respiratory Rate 20 08/19/24 18:00 Blood Pressure 172/109 H 08/19/24 18:00 Pulse Oximetry 96 08/19/24 18:00 Temperature 36.0 C L 08/19/24 18:00 Pulse 96 H 08/19/24 18:00 Respiratory Rate 20 08/19/24 18:00 Respiratory Effort Normal 08/19/24 18:07 Blood Pressure 146/88 H 08/19/24 18:32 Blood Pressure Mean 107 08/19/24 18:32 Pulse Oximetry 96 08/19/24 18:00 Comment pt has spinal stenosis and has chronic pain in knees and back 08/19/24 18:00 Lab/Test Results Lab/Test Results: Laboratory Tests Range/Units 08/19/24 08/19/24 18:14 18:35 WBC (4.4-10.8) 10^3/uL 9.21 RBC (3.93-5.22) 10^6/uL 5.21 Hgb (11.2-15.7) g/dL 14.7 Hct (36.0-46.0) % 46.6 H MCV (80-95) fL 89 MCH (27.0-33.0) pg 28.2 MCHC (32.0-36.0) % 31.5 L RDW (11.7-14.6) % 16.1 H Plt Count (130-400) 10^3/uL 215 MPV (8.0-11.0) fL 9.2 Immature Gran % % 0.4 Neutrophils % % 73.7 Lymphocytes % % 18.3 Monocytes % % 5.4 Eosinophils % % 1.7 Basophils % % 0.5 Nucleated RBC % (0.0-0.3) % 0.0 Absolute Neutrophils (1.2-6.7) 10^3/uL 6.77 H Absolute Lymphocytes (1.2-3.4) 10^3/uL 1.69 Absolute Monocytes (0.1-0.8) 10^3/uL 0.50 Absolute Eosinophils (0.0-0.7) 10^3/uL 0.16 Absolute Basophils (0.0-0.2) 10^3/uL 0.05 Urine Opiates Screen (Negative) Negative Urine Methadone Screen (Negative) Negative Ur Barbiturates Screen (Negative) Negative Ur Tricyclics Screen (Negative) Negative Ur Amphetamines Screen (Negative) Negative U Benzodiazepines Scrn (Negative) Negative Urine Cocaine Screen (Negative) Negative Ur THC Screen (Negative) Positive A POC- Test(urine) Negative Medical Decision Making Quality:SDOH Health Related Social Needs: No Data to Display PFSH All Active Problems (Updated 08/01/24 @ 00:05 by ELLEN LEWIS) Spinal stenosis (Acute) Left ventricular hypertrophy (Acute) Heart failure (Acute) Migraine (Chronic) Nicotine dependence, cigarettes, uncomplicated (Acute) Vitamin D deficiency (Acute) Tobacco abuse (Chronic) Medical History Respiratory failure with hypoxia and hypercapnia Obesity hypoventilation syndrome Schizoaffective disorder Post traumatic stress disorder Hyperlipidemia Asthma H/O suicide attempt ADHD Anxiety Bipolar disorder Non-insulin dependent diabetes mellitus Obesity (BMI 30.0-34.9) Hypertension Hypoxia Surgical History Status post bilateral salpingectomy S/P cholecystectomy Family History Other Adopted Social History Smoking/Tobacco Use Status: Current every day Tobacco Type: cigarettes Smoking packs per day: 0.25 Smoking cigarettes per day: 5.0 Years smoked: 40 Smoking pack-years: 10.00 Tobacco: How many years used: 40 Smoking risk assessment performed?: Yes Alcohol Intake: never Drug use: Occasionally Substance use type: marijuana Details: smokes marijuana about once per month 01/11/24 Housing: apartment Do you feel safe at home: Yes Do you feel safe in your relationship?: Yes Additional Social history: Lives with on [address] in [facility]. She is disabled with her medical and mental health conditions. 22 year old daughter in [place]. Sign Out Sign Out Data: Sign Out Comment: 48 year old female with h/o depression and multiple psychiatric hospitalizations presented via EMS for SI with plan (OD on pills). Voluntary. Awaiting [facility] Last updated by Rowena Bruner at 08/19/24 21:04
[2024-08-19 19:12] LABS: Anion Gap 4.8 mmol/L (3-11); BUN 12 mg/dL (7-18); CO2 29.2 mmol/L (21.0-32.0); CREATININE 0.9 mg/dL (0.55-1.02); Calcium 9.4 mg/dL (8.5-10.1); Chloride 102 mmol/L (98-107); Estimated GFR 78.37 (mL/min/1.73m2); Glucose 213 mg/dL (74-106); Potassium 3.9 mmol/L (3.5-5.1); Sodium 136 mmol/L (136-145)
--- NOTE | 2024-08-19 19:21 | NUR.NOTE ---
Nursing Note: Left a message with pt's that if he is able could he bring in the patient's inhalers. Per pt he will not be able to because they do not have a car. Provider updated
[2024-08-19 19:51] VITALS: RESP 5; O2SAT 95
[2024-08-19] MEDS: Albuterol/Ipratropium 3 ML UPD VIAL UPD (19:51)
[2024-08-19] MEDS: Nystatin POWDER 15 GM JAR TP (19:52)
[2024-08-19] MEDS: Prazosin 1 MG CAP 8 MG PO (20:05)
[2024-08-19] MEDS: Pregabalin 50 MG CAP PO (20:05)
[2024-08-19] MEDS: risperiDONE 1 MG TAB 4 MG PO (20:05)
[2024-08-19] MEDS: Divalproex 500 MG TABEC 1000 MG PO (20:05)
[2024-08-19] MEDS: busPIRone 15 MG TAB 30 MG PO (20:05)
[2024-08-19] MEDS: Melatonin 3 MG TAB 10 MG PO (20:05)
[2024-08-19] MEDS: Cyclobenzaprine 10 MG TAB PO (20:05)
[2024-08-19] MEDS: Nicotine 2 MG GUM CH (20:14)
--- NOTE | 2024-08-19 21:53 | NUR.NOTE ---
Nursing Note: report to ADRIANA Maldonado
--- NOTE | 2024-08-20 04:52 | W.EDPROG ---
Date of service: 08/19/24 Time of Service: 23:30 Medical Decision Making This patient was signed out to me. Please see previous notes for H&P and initial eval. In brief, 48yo F with hx T2DM, COPD, CHF, HTN, depression, here with worsening SI after medication changes, medically cleared, pending voluntary placement. Overnight no acute issues, appeared to be sleeping comfortably. Did not wake for assessment. Needs med rec when awake. Will be signed out to oncoming physician, plan remains as above Quality:SDOH Health Related Social Needs: No Data to Display Sign Out Sign Out Data: Sign Out Comment: 48 year old female with h/o depression and multiple psychiatric hospitalizations presented via EMS for SI with plan (OD on pills). Voluntary. Awaiting [facility] eval Last updated by Rowena Bruner at 08/19/24 21:04 Discharge Plan Discharge Details Chief Complaint: PsychEval Primary Care Provider: BRYCE SMITH ED Provider: Demi Henderson Home Meds and New Rx's Prescriptions: No Action (DME) Oxygen Tank See Rx Instructions .Route Qty: 1 0RF Rx Instructions: 2LPM with exertion pregabalin [Lyrica] 50 mg capsule 50 mg PO BID Patient Comments: prescribed by Bryce Smith, PCP ipratropium-albuterol 0.5 mg-3 mg(2.5 mg base)/3 mL solution for nebulization 3 ml UPD Q4H PRN PRN (Reason: shortness of breath or wheezing) Qty: 540 12RF Jardiance 25 mg tablet 25 mg PO DAILY Dulera 200-5 mcg/actuation HFA aerosol inhaler 2 puff inhalation BID Qty: 13 12RF Rx Instructions: Rinse mouth after use Spiriva Respimat 2.5 mcg/actuation mist 2 puff inhalation DAILY Qty: 4 12RF albuterol sulfate [Proventil HFA] 90 mcg/actuation HFA aerosol inhaler 2 puff inhalation Q6H PRN (Reason: shortness of breath or wheezing) Qty: 8.5 12RF prazosin 2 mg capsule 8 mg PO HS Patient Comments: TAKE ONE CAPSULE BY MOUTH AT BEDTIME buspirone 30 mg tablet 30 mg PO BID Patient Comments: reports she is taking 60mg BID cyclobenzaprine 10 mg tablet 10 mg PO BID omeprazole 20 mg capsule,delayed release(DR/EC) 20 mg PO DAILY lisinopril 20 mg Tablet 20 mg PO DAILY divalproex [Depakote] 500 mg Tablet,Delayed Release (Dr/Ec) 1,000 mg PO QHS risperidone [Risperdal] 2 mg Tablet 4 mg PO HS spironolactone 25 mg Tablet 25 mg PO DAILY Qty: 30 0RF escitalopram oxalate 20 mg tablet 20 mg PO DAILY Patient Comments: TAKE 1 TABLET BY MOUTH DAILY albuterol sulfate 2.5 mg /3 mL (0.083 %) solution for nebulization 2.5 mg inhalation Q4H PRNQty: 90 0RF Ozempic 0.25 mg or 0.5 mg (2 mg/3 mL) pen injector 2 mg SUBCUT .weekly Patient Comments: INJECT 0.25MG UNDER THE SKIN ONCE WEEKLY atomoxetine 40 mg capsule 40 mg PO DAILY Patient Comments: TAKE ONE CAPSULE BY MOUTH EVERY MORNING azithromycin 250 mg tablet 250 mg PO DAILY Patient Comments: TAKE 2 TABLETS BY MOUTH ONE DOSE ON DAY 1, THEN 1 TABLET DAILY ON DAYS 2-5 melatonin 10 mg capsule 10 mg PO HS PRN lidocaine 5 % adhesive patch,medicated 1 patch transdermal DAILY PRN Patient Comments: APPLY 1 PATCH TOPICALLY UP TO 12 HOURS AND OFF FOR 12 HOURS Trulicity 4.5 mg/0.5 mL pen injector 3 mg SUBCUT ONCE Patient Comments: INJECT 4.5MG UNDER THE SKIN ONCE WEEKLY DIRECTED ibuprofen 800 mg tablet 800 mg PO BID PRN Patient Comments: TAKE ONE TABLET BY MOUTH TWICE A DAY NEEDED furosemide [Lasix] 20 mg tablet 20 mg PO DAILY Qty: 14 0RF
[2024-08-20] MEDS: Budesonide/Formoterol 160/4.5 6 GM 60 PUFF INH IH (08:53)
[2024-08-20 08:59] VITALS: BP 167/94; PULSE 95; RESP 20; TEMP 36.8; O2SAT 92
[2024-08-20] MEDS: Pregabalin 50 MG CAP PO (10:42)
[2024-08-20] MEDS: Nicotine 2 MG GUM CH ×2 (12:50→16:14)
--- NOTE | 2024-08-20 13:57 | CMSP_ITS ---
Date of service: 08/20/24 Time of Service: 13:57 Care Management Safety Plan Status Status: Voluntary Reason for Wait Reason for Wait: Inpatient Admission Safety Plan Safety Plan: VOLUNTARY FOR INPATIENT PSYCHIATRIC STABILIZATION.? Patient is appropriate in all interactions since arriving at [facility]; Pt has demonstrated appropriate coping and communication skills, has articulated his or her needs and concerns and is fully engaged during staff interactions. Safety plan has been established with patient, and care team, to adhere to patient goals, identify restrictions based on behavioral status, address nutrition, and determine allowed personal belongings, tools for hygiene and personal care. Determine level of activity including ambulation, level of superv ision, visitors, and determine privileges based on behaviors and level of engagement by pt. VOLUNTARY SAFETY PLAN: 1. Will remain on suicide precautions, in paper clothes 2. Will remain in Zone B under direct supervision of one-on-one staff at all times provided by [employer]; MARLEE, MANAGER CREDIT RISK cooler service supervisor. 3. May have paper cups, plates, finger foods as well as a cardboard spoon with which to eat meals. 4. Follow [facility] Management of the Admitted Behavioral Health Patient policy. 5. Shower available in Zone B without restriction. 6. Personal belongings-soft items permitted at RN discretion. 7. Visitors- at RN discretion. 8. Activities: soft cart items approved per RN discretion. 9.? Bathroom available in Zone B without restriction. 10. Phone: limited to [facility] cordless phone at RN discretion. Due to VOLUNTARY status, if patient wishes to leave [facility], staff will contact [facility] Crisis Screener ([phone]) and Ground Nuclear Weapons Assembly Officer ([phone]) as soon as possible. In the event of elopement, notify [facility] Police ([phone]). Patient is currently voluntarily at [facility] and seeking inpatient admission when a bed becomes available. [facility] Psychiatrist will continue seeking p lacement. Please contact the Ground Nuclear Weapons Assembly Officer ([phone]) and [facility] Correctional Facility Psychiatrist ([phone]) for any needed changes in the Safety Plan. Safety plan has been provided to interdepartmental care team.
--- NOTE | 2024-08-20 13:57 | PDOC.CMSAFE ---
Date of service: 08/20/24 Time of Service: 13:57 Care Management Safety Plan Status Status: Voluntary Reason for Wait Reason for Wait: Inpatient Admission Safety Plan Safety Plan: VOLUNTARY FOR INPATIENT PSYCHIATRIC STABILIZATION.? Patient is appropriate in all interactions since arriving at [facility]; Pt has demonstrated appropriate coping and communication skills, has articulated his or her needs and concerns and is fully engaged during staff interactions. Safety plan has been established with patient, and care team, to adhere to patient goals, identify restrictions based on behavioral status, address nutrition, and determine allowed personal belongings, tools for hygiene and personal care. Determine level of activity including ambulation, level of supervision, visitors, and determine privileges based on behaviors and level of engagement by pt. VOLUNTARY SAFETY PLAN: 1. Will remain on suicide precautions, in paper clothes 2. Will remain in Zone B under direct supervision of one-on-one staff at all times provided by [employer]; MARLEE, SOCIAL AND HUMAN SERVICES ASSISTANT high school director. 3. May have paper cups, plates, finger foods as well as a cardboard spoon with which to eat meals. 4. Follow [facility] Management of the Admitted Behavioral Health Patient policy. 5. Shower available in Zone B without restriction. 6. Personal belongings-soft items permitted at RN discretion. 7. Visitors- at RN discretion. 8. Activities: soft cart items approved per RN discretion. 9.? Bathroom available in Zone B without restriction. 10. Phone: limited to [facility] cordless phone at RN discretion. Due to VOLUNTARY status, if patient wishes to leave [facility], staff will contact [facility] Crisis Screener ([phone]) and Display Card Writer ([phone]) as soon as possible. In the event of elopement, notify [facility] Police ([phone]). Patient is currently voluntarily at [facility] and seeking inpatient admission when a bed becomes available. [facility] will continue seeking placement. Please contact the Display Card Writer ([phone]) and [facility] S[facility] Turner ([phone]) for any needed changes in the Safety Plan. Safety plan has been provided to interdepartmental care team.
--- NOTE | 2024-08-20 14:01 | CMPROGNOTE_ITS ---
Date of service: 08/20/24 Time of Service: 14:01 Care Management Progress Note Progress Note Text Progress Note Text: CM huddled regarding Cecilia's plan of care; staff present were RN supervisor fabrication and assembly, primary RN, MARLEE/cpso, CM, [facility] clinician and MD. Per report, Cecilia was being considered at this morning, but was declined due to medical needs; she was also declined by [facility] due to medical needs. requested that [facility] contact [facility] animal care taker for support in obtaining placement for Cecilia in a psychiatric facility that has access to medical care, if needed, such as [facility] or [facility]. Later, AMOL received a call from the ED, stating that [facility] has offered a bed to Cecilia for today, pending an insurance PA. CM contacted [facility], who is obtaining the PA. A couple hours later, Cecilia stated that she feels safe to return home with a safety plan; [facility] returned and completed a safety plan for Cecilia to follow up in the community.
--- NOTE | 2024-08-20 14:01 | PDOC.CMPRO ---
Date of service: 08/20/24 Time of Service: 14:01 Care Management Progress Note Progress Note Text Progress Note Text: CM huddled regarding Cecilia's plan of care; staff present were RN logging crew supervisor, primary RN, MARLEE/cpso, CM, [facility] clinician and MD. Per report, Cecilia was being considered at this morning, but was declined due to medical needs; she was also declined by [place] due to medical needs. requested that [facility] contact [facility] child caregiver for support in obtaining placement for Cecilia in a psychiatric facility that has access to medical care, if needed, such as [place] or [facility]. Later, AMOL received a call from the ED, stating that [place] has offered a bed to Cecilia for today, pending an insurance PA. CM contacted [facility], who is obtaining the PA. A couple hours later, Cecilia stated that she feels safe to return home with a safety plan; [facility] returned and completed a safety plan for Cecilia to follow up in the community.
--- NOTE | 2024-08-20 15:24 | W.EDPROG ---
Date of service: 08/20/24 Time of Service: 15:25 Medical Decision Making Patient remains on psychiatric hold awaiting placement. However [facility] apparently refused citing need for medical care. Patient does remain hypertensive. Patient notes that she typically runs high. Patient has not been receiving her home dose lisinopril. Med reconciliation was performed and appropriate home meds have been ordered. Quality:SDOH Health Related Social Needs: No Data to Display Sign Out Sign Out Data: Sign Out Comment: 48 year old female with h/o depression and multiple psychiatric hospitalizations presented via EMS for SI with plan (OD on pills). Voluntary. Awaiting [facility] eval Last updated by Rowena Bruner at 08/19/24 21:04 Sign Out Comment: SI with plan to OD. Medically cleared, voluntary, pending placement. Is on O2 at home so remains in room 9. Home meds not yet ordered, needs med rec Last updated by Demi Henderson MD at 08/20/24 07:20 Discharge Plan Discharge Details Chief Complaint: PsychEval Primary Care Provider: BRYCE SMITH ED Provider: Ernst Andrade Home Meds and New Rx's Prescriptions: No Action (DME) Oxygen Tank See Rx Instructions .Route Qty: 1 0RF Rx Instructions: 2LPM with exertion pregabalin [Lyrica] 50 mg capsule 50 mg PO BID Patient Comments: prescribed by JAMES Jennings ipratropium-albuterol 0.5 mg-3 mg(2.5 mg base)/3 mL solution for nebulization 3 ml UPD Q4H PRN PRN (Reason: shortness of breath or wheezing) Qty: 540 12RF Jardiance 25 mg tablet 25 mg PO DAILY Dulera 200-5 mcg/actuation HFA aerosol inhaler 2 puff inhalation BID Qty: 13 12RF Rx Instructions: Rinse mouth after use Spiriva Respimat 2.5 mcg/actuation mist 2 puff inhalation DAILY Qty: 4 12RF albuterol sulfate [Proventil HFA] 90 mcg/actuation HFA aerosol inhaler 2 puff inhalation Q6H PRN (Reason: shortness of breath or wheezing) Qty: 8.5 12RF prazosin 2 mg capsule 8 mg PO HS Patient Comments: TAKE ONE CAPSULE BY MOUTH AT BEDTIME buspirone 30 mg tablet 30 mg PO BID Patient Comments: reports she is taking 60mg BID cyclobenzaprine 10 mg tablet 10 mg PO BID omeprazole 20 mg capsule,delayed release(DR/EC) 20 mg PO DAILY lisinopril 20 mg Tablet 20 mg PO DAILY divalproex [Depakote] 500 mg Tablet,Delayed Release (Dr/Ec) 1,000 mg PO QHS risperidone [Risperdal] 2 mg Tablet 4 mg PO HS spironolactone 25 mg Tablet 25 mg PO DAILY Qty: 30 0RF escitalopram oxalate 20 mg tablet 20 mg PO DAILY Patient Comments: TAKE 1 TABLET BY MOUTH DAILY albuterol sulfate 2.5 mg /3 mL (0.083 %) solution for nebulization 2.5 mg inhalation Q4H PRNQty: 90 0RF Ozempic 0.25 mg or 0.5 mg (2 mg/3 mL) pen injector 2 mg SUBCUT .weekly Patient Comments: INJECT 0.25MG UNDER THE SKIN ONCE WEEKLY atomoxetine 40 mg capsule 40 mg PO DAILY Patient Comments: TAKE ONE CAPSULE BY MOUTH EVERY MORNING azithromycin 250 mg tablet 250 mg PO DAILY Patient Comments: TAKE 2 TABLETS BY MOUTH ONE DOSE ON DAY 1, THEN 1 TABLET DAILY ON DAYS 2-5 melatonin 10 mg capsule 10 mg PO HS PRN lidocaine 5 % adhesive patch,medicated 1 patch transdermal DAILY PRN Patient Comments: APPLY 1 PATCH TOPICALLY UP TO 12 HOURS AND OFF FOR 12 HOURS Trulicity 4.5 mg/0.5 mL pen injector 3 mg SUBCUT ONCE Patient Comments: INJECT 4.5MG UNDER THE SKIN ONCE WEEKLY DIRECTED ibuprofen 800 mg tablet 800 mg PO BID PRN Patient Comments: TAKE ONE TABLET BY MOUTH TWICE A DAY NEEDED furosemide [Lasix] 20 mg tablet 20 mg PO DAILY Qty: 14 0RF
[2024-08-20] MEDS: Lisinopril 20 MG TAB PO (16:40)
--- NOTE | 2024-08-20 16:40 | ED.PROG_ITS ---
Date of service: 08/20/24 Time of Service: 16:40 Medical Decision Making Patient reassessed by [facility] chest crisis screener. Patient deemed safe for discharge. Safety plan was established with the patient. I reevaluated the patient and she notes she was able to get some sleep here and does not have any active suicidal thoughts. She is feeling safe to go home and agrees to follow safety plan. Patient notes no guns in the home. We were challenged with medication reconciliation and have asked telemetry pharm acy to participate -this is pending at this time. Full med reconciliation cannot be performed at this time. Patient does confirm that she is supposed to be on lisinopril 20 mg daily. I will provide home dose as she is persistently hypertensive. Patient does plan to take her spironolactone and Lasix when she gets home. She was encouraged to continue her medications as prescribed. Quality:SDOH Health Related Social Needs: No Data to Display Sign Out Sign Out Data: Sign Out Comment: 48 year old female with h/o depression and multiple psychiatric hospitalizations presented via EMS for SI with plan (OD on pills). Voluntary. Awaiting [facility]ins Last updated by Rowena Bruner at 08/19/24 21:04 Sign Out Comment: SI with plan to OD. Medically cleared, voluntary, pending jonah cement. Is on O2 at home so remains in room 9. Home meds not yet ordered, needs med rec Last updated by Demi Henderson MD at 08/20/24 07:20 Discharge Plan Disposition Patient Disposition: Home Condition: Stable Discharge Details Chief Complaint: PsychEval Clinical Impression: Depression, Verbalizes suicidal thoughts, Hypertension Primary Care Provider: BRYCE SMITH ED Provider: Ernst Andrade Home Meds and New Rx's Prescriptions: No Action (DME) Oxygen Tank See Rx Instructions .Route Qty: 1 0RF Rx Instructions: 2LPM with exertion pregabalin [Lyrica] 50 mg capsule 50 mg PO BID Patient Comments: prescribed by JAMES Jennings ipratropium-albuterol 0.5 mg-3 mg(2.5 mg base)/3 mL solution for nebulization 3 ml UPD Q4H PRN PRN (Reason: shortness of breath or wheezing) Qty: 540 12RF Jardiance 25 mg tablet 25 mg PO DAILY Dulera 200-5 mcg/actuation HFA aerosol inhaler 2 puff inhalation BID Qty: 13 12RF Rx Instructions: Rinse mouth after use Spiriva Respimat 2.5 mcg/actuation mist 2 puff inhalation DAILY Qty: 4 12RF albuterol sulfate [Proventil HFA] 90 mcg/actuation HFA aerosol inhaler 2 puff inhalation Q6H PRN (Reason: shortness of breath or wheezing) Qty: 8.5 12RF prazosin 2 mg capsule 8 mg PO HS Patient Comments: TAKE ONE CAPSULE BY MOUTH AT BEDTIME buspirone 30 mg tablet 30 mg PO BID Patient Comments: reports she is taking 60mg BID cyclobenzaprine 10 mg tablet 10 mg PO BID omeprazole 20 mg capsule,delayed release(DR/EC) 20 mg PO DAILY lisinopril 20 mg Tablet 20 mg PO DAILY divalproex [Depakote] 500 mg Tablet,Delayed Release (Dr/Ec) 1,000 mg PO QHS risperidone [Risperdal] 2 mg Tablet 4 mg PO HS spironolactone 25 mg Tablet 25 mg PO DAILY Qty: 30 0RF escitalopram oxalate 20 mg tablet 20 mg PO DAILY Patient Comments: TAKE 1 TABLET BY MOUTH DAILY albuterol sulfate 2.5 mg /3 mL (0.083 %) solution for nebulization 2.5 mg inhalation Q4H PRNQty: 90 0RF Ozempic 0.25 mg or 0.5 mg (2 mg/3 mL) pen injector 2 mg SUBCUT .weekly Patient Comments: INJECT 0.25MG UNDER THE SKIN ONCE WEEKLY atomoxetine 40 mg capsule 40 mg PO DAILY Patient Comments: TAKE ONE CAPSULE BY MOUTH EVERY MORNING azithromycin 250 mg tablet 250 mg PO DAILY Patient Comments: TAKE 2 TABLETS BY MOUTH ONE DOSE ON DAY 1, THEN 1 TABLET DAILY ON DAYS 2-5 melatonin 10 mg capsule 10 mg PO HS PRN lidocaine 5 % adhesive patch,medicated 1 patch transdermal DAILY PRN Patient Comments: APPLY 1 PATCH TOPICALLY UP TO 12 HOURS AND OFF FOR 12 HOURS Trulicity 4.5 mg/0.5 mL pen injector 3 mg SUBCUT ONCE Patient Comments: INJECT 4.5MG UNDER THE SKIN ONCE WEEKLY DIRECTED ibuprofen 800 mg tablet 800 mg PO BID PRN Patient Comments: TAKE ONE TABLET BY MOUTH TWICE A DAY NEEDED furosemide [Lasix] 20 mg tablet 20 mg PO DAILY Qty: 14 0RF Discharge Instructions Instructions: Depression, Adult ED, High Blood Pressure ED Additional Instructions: You have agreed to participate in the safety plan as established with [facility]. Please take your medications as prescribed. Your blood pressure was elevated today. You were given lisinopril here in the emergency department today. Your next dose of lisinopril should be tomorrow. Please monitor your blood pressure closely and keep a log daily. And if you are not noticing improvement, please discuss this with your doctor. If you have any questions about your prescribed medications, please discuss with your prescribing physician. Please contact your primary care physician to arrange follow-up. Please follow-up with [facility] [employer]. Return to the ER immediately for any worsening or new concerning symptoms. You are always welcome to return here if you feel unsafe. Referrals: [facility] [employer] [Outside] BRYCE SMITH VERTICA ARCHITECT [Primary Care Provider] -
[2024-08-20 16:58] VITALS: BP 200/87; PULSE 94; RESP 18; O2SAT 98
--- NOTE | 2024-08-20 17:01 | TELEP.MEDREC ---
Date of service: 08/20/24 Time of Service: 17:01 Telepharmacy Home Med Rec Allergies Allergies: bee pollen Allergy (Unverified 08/19/24 18:08) Hives hazelnut Allergy (Unverified 08/19/24 18:08) Hives peanut Allergy (Unverified 08/19/24 18:08) hallucination tree nut Allergy (Unverified 08/19/24 18:08) hallucination gabapentin Adverse Reaction (Severe, Verified 08/19/24 18:08) vomiting varenicline (From Chantix) Adverse Reaction (Intermediate, Verified 08/19/24 18:08) depression amoxicillin Adverse Reaction (Unverified 08/19/24 18:08) Nausea fluoxetine (From Prozac) Adverse Reaction (Unverified 08/19/24 18:08) Nausea trazodone Adverse Reaction (Verified 08/19/24 18:08) Weight gain abelox Allergy (Uncoded 08/19/24 18:08) Hives Interview Person Interviewed: Pt discharged, updating pt med list based on most recent outpatient data per provider request. Unable to evaluate PRN and OTC medications. Changes made to Home Medication List: ADDITIONS: None DELETIONS: Trulicity Azithromycin CHANGES: Prazosin to 10mg HS Risperidone to 6mg HS Semaglutide to 0.25mg weekly Recommended Changes Attestation: The home medication list is now updated to the best of my knowledge and is ready to be reconciled by the provider. Please contact the TelePharmacy Medication Reconciliation Pharmacist at for any questions.
== END 2024-08-20 16:58 | disposition home or self-care (01) ==
PROVIDERS: Nurse Practitioner Family; Emergency Provider Student in an Organized Health Care Education/Training Program; PCP Nurse Practitioner Family
DX: R45.851 Suicidal ideations (principal); F32.A Depression, unspecified; I10 Essential (primary) hypertension; E78.5 Hyperlipidemia, unspecified; E11.9 Type 2 diabetes mellitus without complications; J44.9 Chronic obstructive pulmonary disease, unspecified; F17.210 Nicotine dependence, cigarettes, uncomplicated; Z99.81 Dependence on supplemental oxygen; Z79.85 Long-term (current) use of injectable non-insulin antidiabetic drugs
CPT/HCPCS: 00123; 80048; 80307; 81025; 94640; 99284; 84443; 85025; J7620

== ENCOUNTER 2024-08-26 22:26 | Emergency (ER) | payer MEDICARE, MEDICAID, SELFPAY ==
--- NOTE | 2024-08-26 22:15 | RT.EKG_ITS ---
APPROVED REPORT Exam: Resting ECG Reason for Exam: psych clearance Patient Location: E HR:106 bpm ECG Measurements Heart Rate 106 AXIS UT 131 P 63 QRSd 83 QRS 68 QT 349 T 47 QTc 465 Conclusion Sinus tachycardia...rate> 99 Ventricular premature complex...V complex w/ short R-R interval There are no significant changes compared to prior EKG performed on 07/01/2024 at 15:37.
[2024-08-26 22:24] VITALS: BP 212/97; PULSE 118; RESP 18; TEMP 36; O2SAT 95
--- NOTE | 2024-08-26 22:24 | ED.GENADUL_ITS ---
Discharge Plan Discharge Details Chief Complaint: PsychEval Primary Care Provider: BRYCE SMITH ED Provider: Ronaldo Cole [place] Meds and New Rx's Prescriptions: No Action (DME) Oxygen Tank See Rx Instructions .Route Qty: 1 0RF Rx Instructions: 2LPM with exertion pregabalin [Lyrica] 50 mg capsule 50 mg PO BID Patient Comments: prescribed by Bryce Smith, PCP ipratropium-albuterol 0.5 mg-3 mg(2.5 mg base)/3 mL solution for nebulization 3 ml UPD Q4H PRN PRN (Reason: shortness of breath or wheezing) Qty: 540 12RF Jardiance 25 mg tablet 25 mg PO DAILY Dulera 200-5 mcg/actuation HFA aerosol inhaler 2 puff inhalation BID Qty: 13 12RF Rx Instructions: Rinse mouth after use Spiriva Respimat 2.5 mcg/actuation mist 2 puff inhalation DAILY Qty: 4 12RF albuterol sulfate [Proventil HFA] 90 mcg/actuation HFA aerosol inhaler 2 puff inhalation Q6H PRN (Reason: shortness of breath or wheezing) Qty: 8.5 12RF buspirone 30 mg tablet 30 mg PO BID Patient Comments: reports she is taking 60mg BID cyclobenzaprine 10 mg tablet 10 mg PO BID PRN (Reason: muscle spasm) omeprazole 20 mg capsule,delayed release(DR/EC) 20 mg PO DAILY lisinopril 20 mg Tablet 20 mg PO DAILY divalproex [Depakote] 500 mg Tablet,Delayed Release (Dr/Ec) 1,000 mg PO QHS risperidone [Risperdal] 2 mg Tablet 6 mg PO HS spironolactone 25 mg Tablet 25 mg PO DAILY Qty: 30 0RF escitalopram oxalate 20 mg tablet 20 mg PO DAILY Patient Comments: TAKE 1 TABLET BY MOUTH DAILY albuterol sulfate 2.5 mg /3 mL (0.083 %) solution for nebulization 2.5 mg inhalation Q4H PRNQty: 90 0RF Ozempic 0.25 mg or 0.5 mg (2 mg/3 mL) pen injector 0.25 mg SUBCUT .weekly Patient Comments: INJECT 0.25MG UNDER THE SKIN ONCE WEEKLY atomoxetine 40 mg capsule 40 mg PO DAILY Patient Comments: TAKE ONE CAPSULE BY MOUTH EVERY MORNING melatonin 10 mg capsule 10 mg PO HS PRN lidocaine 5 % adhesive patch,medicated 1 patch transdermal DAILY PRN Patient Comments: APPLY 1 PATCH TOPICALLY UP TO 12 HOURS AND OFF FOR 12 HOURS Trulicity 4.5 mg/0.5 mL pen injector 3 mg SUBCUT ONCE Patient Comments: INJECT 4.5MG UNDER THE SKIN ONCE WEEKLY DIRECTED prazosin 5 mg capsule 10 mg PO QHS Patient Comments: TAKE TWO CAPSULES BY MOUTH EVERY EVENING AT BEDTIME ibuprofen 800 mg tablet 800 mg PO BID PRN Patient Comments: TAKE ONE TABLET BY MOUTH TWICE A DAY NEEDED furosemide [Lasix] 20 mg tablet 20 mg PO DAILY Qty: 14 0RF HPI General Mode of arrival: EMS . Date/Time Provider Initiated Documentation: 08/26/24 22:28 . Limitations to Documentation: no limitations . Information obtained by: patient, RN notes reviewed and old records reviewed . HPI Narrative: Patient presenting to ED for mental health clearance and placement. Patient here last week with SI and ultimately discharged home with safety plan. Reports feeling worse not better. Today much worse which prompted to call mental health. She was evaluated by mental health in the community. She was brought here voluntarily for clearance with plan of inpatient admission. Patient's plan was to take a bunch of pills. She denies taking anything. She denies any physical complaints at this time. She does have history of hypertension, asthma/COPD, diabetes and schizoaffective. Related Data Home Medications ?Medication ?Instructions ?Recorded ?Confirmed divalproex 500 mg tablet,delayed 1,000 mg PO QHS 01/18/20 08/26/24 release (Depakote) lisinopril 20 mg tablet 20 mg PO DAILY 01/18/20 08/26/24 risperidone 2 mg tablet (Risperdal) 6 mg PO HS 01/18/20 08/26/24 ibuprofen 800 mg tablet 800 mg PO BID PRN 11/20/22 08/26/24 Oxygen #1 ea 12/13/22 08/19/24 spironolactone 25 mg tablet 25 mg PO DAILY #30 tabs 05/06/23 08/26/24 furosemide 20 mg tablet (Lasix) 20 mg PO DAILY #14 tabs 06/13/23 08/26/24 ipratropium 0.5 mg-albuterol 3 mg 3 ml UPD Q4H PRN PRN shortness of 09/12/23 08/26/24 (2.5 mg base)/3 mL nebulization breath or wheezing #540 mL soln empagliflozin 25 mg tablet 25 mg PO DAILY 12/15/23 08/26/24 (Jardiance) buspirone 30 mg tablet 30 mg PO BID 02/09/24 08/26/24 cyclobenzaprine 10 mg tablet 10 mg PO BID PRN muscle spasm 02/09/24 08/26/24 omeprazole 20 mg capsule,delayed 20 mg PO DAILY 02/09/24 08/26/24 release escitalopram oxalate 20 mg tablet 20 mg PO DAILY 02/13/24 08/26/24 albuterol sulfate 2.5 mg/3 mL 2.5 mg (3 mL) inhalation Q4H PRN 02/14/24 08/26/24 (0.083 %) solution for nebulization #90 mL pregabalin 50 mg capsule (Lyrica) 50 mg PO BID 06/21/24 08/26/24 albuterol sulfate 90 mcg/actuation 2 puff inhalation Q6H PRN 08/04/24 08/26/24 aerosol inhaler (Proventil HFA) shortness of breath or wheezing #8.5 grams mometasone-formoterol HFA 200 2 puff inhalation BID #13 grams 08/04/24 08/26/24 mcg-5 mcg/actuation aerosol inhaler (Dulera) tiotropium bromide 2.5 2 puff inhalation DAILY #4 grams 08/04/24 08/26/24 mcg/actuation mist for inhalation (Spiriva Respimat) atomoxetine 40 mg capsule 40 mg PO DAILY 08/19/24 08/26/24 dulaglutide 4.5 mg/0.5 mL 3 mg subcut ONCE 08/19/24 08/26/24 subcutaneous pen injector (Trulicity) lidocaine 5 % topical patch 1 patch transdermal DAILY PRN 08/19/24 08/26/24 melatonin 10 mg capsule 10 mg PO HS PRN 08/19/24 08/26/24 semaglutide 0.25 mg or 0.5 mg (2 0.25 mg subcut .weekly 08/19/24 08/26/24 mg/3 mL) subcutaneous pen injector (Ozempic) prazosin 5 mg capsule 10 mg PO QHS 08/20/24 08/26/24 Previous Rx's ?Medication ?Instructions ?Recorded Oxygen #1 ea 12/13/22 spironolactone 25 mg tablet 25 mg PO DAILY #30 tabs 05/06/23 furosemide 20 mg tablet (Lasix) 20 mg PO DAILY #14 tabs 06/13/23 ipratropium 0.5 mg-albuterol 3 mg 3 ml UPD Q4H PRN PRN shortness of 09/12/23 (2.5 mg base)/3 mL nebulization breath or wheezing #540 mL soln albuterol sulfate 2.5 mg/3 mL 2.5 mg (3 mL) inhalation Q4H PRN 02/14/24 (0.083 %) solution for nebulization #90 mL albuterol sulfate 90 mcg/actuation 2 puff inhalation Q6H PRN 08/04/24 aerosol inhaler (Proventil HFA) shortness of breath or wheezing #8.5 grams mometasone-formoterol HFA 200 2 puff inhalation BID #13 grams 08/04/24 mcg-5 mcg/actuation aerosol inhaler (Dulera) tiotropium bromide 2.5 2 puff inhalation DAILY #4 grams 08/04/24 mcg/actuation mist for inhalation (Spiriva Respimat) Allergies Allergy/AdvReac Type Severity Reaction Status Date / Time bee pollen Allergy Hives Unverified 08/26/24 22:29 hazelnut Allergy Hives Unverified 08/26/24 22:29 peanut Allergy hallucinati Unverified 08/26/24 22:29 on tree nut Allergy hallucinati Unverified 08/26/24 22:29 on gabapentin AdvReac Severe vomiting Verified 08/26/24 22:29 varenicline (From Chantix) AdvReac Intermediate depression Verified 08/26/24 22:29 amoxicillin AdvReac Nausea Unverified 08/26/24 22:29 fluoxetine (From Prozac) AdvReac Nausea Unverified 08/26/24 22:29 trazodone AdvReac Weight gain Verified 08/26/24 22:29 abelox Allergy Hives Uncoded 08/26/24 22:29 General ZACK: 2 Review of Systems Narrative: Per HPI Exam Narrative Exam Narrative: Const: WDWN female in NAD. VS per triage. HEENT: NC/AT. Normal facial exam. Neck: Supple. Trachea midline. Lungs: Normal respiratory effort. Lungs with scattered wheezing. Cor: RRR without murmur. Good radial pulses. GI: Soft/ND/NT. Neuro: A+O x 3. Normal speech, mentation, gait. Cranial nerves II - XII grossly intact. No gross motor or sensory deficit. Ext: No C/C/E. Psych: Feeling depressed with active SI. Medical Decision Making Patient presents to ED by ambulance for mental health clearance and voluntary inpatient admission. Patient was here last week for SI. Was discharged with safety plan but feels worse. Has already been evaluated by mental health in the community. Plan is for inpatient psychiatric admission. Patient does have medical history including asthma/COPD, diabetes, hypertension. Pharmacy did reconcile her medications last week. Patient reports no changes. I will place her on her home meds. EKG and laboratory studies ordered. 23:30 - Patient's labs overall look fine. ASA level mildly elevated so will repeat in 4 hours from first. EKG is unchanged. Medications ordered. 04:20 - Repeat remains at 5. Urinalysis still pending. Medical Records Medical records reviewed: Yes I reviewed the patient's medical records. Medical records narrative: Specifically, pharmacy med reconciliation from last week Lab Data Lab results reviewed: Yes I reviewed the patient's lab results. Lab results narrative: See [facility] ECG Data Attestation: I personally reviewed and interpreted this ECG (s) as follows: Prior ECG tracings: available for review Interpretation: See EKG/MDM [facility] All Active Problems Verbalizes suicidal thoughts (Acute) Depression (Chronic) Spinal stenosis (Acute) Heart failure (Acute) Migraine (Chronic) Nicotine dependence, cigarettes, uncomplicated (Acute) Vitamin D deficiency (Acute) Tobacco abuse (Chronic) Medical History Left ventricular hypertrophy Obesity hypoventilation syndrome Schizoaffective disorder Post traumatic stress disorder Hyperlipidemia Asthma H/O suicide attempt ADHD Anxiety Bipolar disorder Non-insulin dependent diabetes mellitus Obesity (BMI 30.0-34.9) Hypertension Surgical History Status post bilateral salpingectomy S/P cholecystectomy Family History Other Adopted Social History Smoking/Tobacco Use Status: Current every day Tobacco Type: cigarettes Smoking packs per day: 0.25 Smoking cigarettes per day: 5.0 Years smoked: 40 Smoking pack-years: 10.00 Tobacco: How many years used: 40 Smoking risk assessment performed?: Yes Alcohol Intake: never Drug use: Occasionally Substance use type: marijuana Details: smokes marijuana about once per month 01/11/24 Housing: apartment Do you feel safe at home: Yes Do you feel safe in your relationship?: Yes Additional Social history: Lives with on [address] in [place] [facility]. She is disabled with her medical and mental health conditions. 22 year old daughter in [place].
[2024-08-26 22:43] LABS: HCT 43.1 % (36.0-46.0); HGB 13.9 g/dL (11.2-15.7); MCH 28.3 pg (27.0-33.0); MCHC 32.3 % (32.0-36.0); MCV 88 fL (80-95); MPV 8.8 fL (8.0-11.0); Platelet Count 201 10^3/uL (130-400); RBC 4.92 10^6/uL (3.93-5.22); RDW 15.7 % (11.7-14.6); RDW-SD 50.4 fL; WBC 8.69 10^3/uL (4.4-10.8)
[2024-08-26 23:00] LABS: ALT 10 U/L (14-59); AST 10 U/L (15-37); Albumin 2.4 g/dL (3.4-5.0); Alkaline Phosphatase 89 U/L (46-116); Anion Gap 7.5 mmol/L (3-11); BUN 13 mg/dL (7-18); Bilirubin, Total 0.45 mg/dL (0.2-1.0); CO2 28.5 mmol/L (21.0-32.0); CREATININE 0.9 mg/dL (0.55-1.02); Calcium 9.2 mg/dL (8.5-10.1); Chloride 101 mmol/L (98-107); Estimated GFR 78.37 (mL/min/1.73m2); Glucose 158 mg/dL (74-106); Potassium 3.8 mmol/L (3.5-5.1); Sodium 137 mmol/L (136-145); Total Protein 7.9 g/dL (6.4-8.2)
[2024-08-26 23:06] LABS: ETHANOL BLOOD < 3.0 mg/dL (<10)
[2024-08-26 23:13] LABS: VALPROIC ACID 78.1 ug/mL
[2024-08-26 23:16] LABS: Acetaminophen < 2 ug/mL (10-30)
[2024-08-27 03:24] VITALS: BP 170/91; PULSE 121; RESP 22; TEMP 37.3; O2SAT 89
--- NOTE | 2024-08-27 07:12 | W.EDPROG ---
Date of service: 08/27/24 Time of Service: 07:12 Medical Decision Making I received signout on this 48-year-old patient in the emergency department voluntarily in setting of suicidal ideation. No active behavioral issues last shift. Will update documentation as clinically warranted and signed patient out to oncoming evening provider. Patient's home medications have been ordered. I ordered this patient a regular diet on safety tray. 4:42 PM No active behavioral issues on my shift. Will sign patient out to oncoming evening provider. Quality:[facility] Health Related Social Needs: No Data to Display Sign Out Sign Out Data: Sign Out Comment: Patient sent in by [facility] for voluntary inpatient psychiatric admission. She is medically cleared with no significant lab abnormalities. Medications have been ordered including as needed albuterol. Last updated by Ronaldo Cole MD at 08/27/24 06:33 Discharge Plan Discharge Details Chief Complaint: PsychEval Primary Care Provider: BRYCE SMITH ED Provider: Patel Mckinney [place] Meds and New Rx's Prescriptions: No Action (DME) Oxygen Tank See Rx Instructions .Route Qty: 1 0RF Rx Instructions: 2LPM with exertion pregabalin [Lyrica] 50 mg capsule 50 mg PO BID Patient Comments: prescribed by Bryce Smith, PCP ipratropium-albuterol 0.5 mg-3 mg(2.5 mg base)/3 mL solution for nebulization 3 ml UPD Q4H PRN PRN (Reason: shortness of breath or wheezing) Qty: 540 12RF Jardiance 25 mg tablet 25 mg PO DAILY Dulera 200-5 mcg/actuation HFA aerosol inhaler 2 puff inhalation BID Qty: 13 12RF Rx Instructions: Rinse mouth after use Spiriva Respimat 2.5 mcg/actuation mist 2 puff inhalation DAILY Qty: 4 12RF albuterol sulfate [Proventil HFA] 90 mcg/actuation HFA aerosol inhaler 2 puff inhalation Q6H PRN (Reason: shortness of breath or wheezing) Qty: 8.5 12RF buspirone 30 mg tablet 30 mg PO BID Patient Comments: reports she is taking 60mg BID cyclobenzaprine 10 mg tablet 10 mg PO BID PRN (Reason: muscle spasm) omeprazole 20 mg capsule,delayed release(DR/EC) 20 mg PO DAILY lisinopril 20 mg Tablet 20 mg PO DAILY divalproex [Depakote] 500 mg Tablet,Delayed Release (Dr/Ec) 1,000 mg PO QHS risperidone [Risperdal] 2 mg Tablet 6 mg PO HS spironolactone 25 mg Tablet 25 mg PO DAILY Qty: 30 0RF escitalopram oxalate 20 mg tablet 20 mg PO DAILY Patient Comments: TAKE 1 TABLET BY MOUTH DAILY albuterol sulfate 2.5 mg /3 mL (0.083 %) solution for nebulization 2.5 mg inhalation Q4H PRNQty: 90 0RF Ozempic 0.25 mg or 0.5 mg (2 mg/3 mL) pen injector 0.25 mg SUBCUT .weekly Patient Comments: INJECT 0.25MG UNDER THE SKIN ONCE WEEKLY atomoxetine 40 mg capsule 40 mg PO DAILY Patient Comments: TAKE ONE CAPSULE BY MOUTH EVERY MORNING melatonin 10 mg capsule 10 mg PO HS PRN lidocaine 5 % adhesive patch,medicated 1 patch transdermal DAILY PRN Patient Comments: APPLY 1 PATCH TOPICALLY UP TO 12 HOURS AND OFF FOR 12 HOURS Trulicity 4.5 mg/0.5 mL pen injector 3 mg SUBCUT ONCE Patient Comments: INJECT 4.5MG UNDER THE SKIN ONCE WEEKLY DIRECTED prazosin 5 mg capsule 10 mg PO QHS Patient Comments: TAKE TWO CAPSULES BY MOUTH EVERY EVENING AT BEDTIME ibuprofen 800 mg tablet 800 mg PO BID PRN Patient Comments: TAKE ONE TABLET BY MOUTH TWICE A DAY NEEDED furosemide [Lasix] 20 mg tablet 20 mg PO DAILY Qty: 14 0RF
[2024-08-27 08:17] VITALS: BP 141/81; PULSE 104; RESP 20; TEMP 36.5; O2SAT 91
[2024-08-27] MEDS: Budesonide/Formoterol 160/4.5 6 GM 60 PUFF INH IH ×2 (08:25→19:50)
[2024-08-27] MEDS: Tiotropium Bromide-Respimat 10 PUFF INH 2 PUFF IH (08:27)
[2024-08-27] MEDS: Omeprazole 20 MG CAPCR PO (08:29)
[2024-08-27] MEDS: Lisinopril 20 MG TAB PO (08:31)
[2024-08-27] MEDS: Escitalopram 20 MG TAB PO (08:31)
[2024-08-27] MEDS: Spironolactone 25 MG TAB PO (08:32)
[2024-08-27] MEDS: Empaglifozin 25 MG TAB PO (08:32)
[2024-08-27] MEDS: Pregabalin 50 MG CAP PO (08:33)
[2024-08-27] MEDS: Furosemide 20 MG TAB PO (08:34)
[2024-08-27] MEDS: busPIRone 15 MG TAB 30 MG PO ×2 (08:34→19:50)
[2024-08-27] MEDS: Nystatin POWDER 60 GM JAR TP (08:35)
[2024-08-27 09:58] LABS: *AMPHETAMINES SCREEN URINE Negative (Negative); *BARBITURATES SCREEN URINE Negative (Negative); *BENZODIAZEPINES SCREEN URINE Negative (Negative); Cannabinoids THC Positive (Negative); Cocaine Screen,Urine Positive (Negative); METHADONE URINE SCREEN Negative (Negative); OPIATES URINE SCREEN Negative (Negative); Tricyclic Antidepressants Negative (Negative)
--- NOTE | 2024-08-27 14:38 | CMSP_ITS ---
Date of service: 08/27/24 Time of Service: 14:39 Care Management Safety Plan Status Status: Voluntary Reason for Wait Reason for Wait: Inpatient Admission Safety Plan Safety Plan: VOLUNTARY FOR INPATIENT PSYCHIATRIC STABILIZATION.? Patient is appropriate in all interactions since arriving at [facility]; Pt has demonstrated appropriate coping and communication skills, has articulated his or her needs and concerns and is fully engaged during staff interactions. Safety plan has been established with patient, and care team, to adhere to patient goals, identify restrictions based on behavioral status, address nutrition, and determine allowed personal belongings, tools for hygiene and personal care. Determine level of activity including ambulation, level of supervision, visitors, and determine privileges based on behaviors and level of engagement by pt. VOLUNTARY SAFETY PLAN: 1. Will remain on suicide precautions, in paper clothes 2. Will remain in Zone B under direct supervision of one-on-one staff at all times provided by [employer]; MARLEE, CONCERT OR LECTURE HALL MANAGER green inspector. 3. May have paper cups, plates, finger foods as well as a cardboard spoon with which to eat meals. 4. Follow [facility] Management of the Admitted Behavioral Health Patient policy. 5. Shower available in Zone B without restriction. 6. Personal belongings-soft items permitted at RN discretion. 7. Visitors- at RN discretion. 8. Activities: soft cart items approved per RN discretion. 9.? Bathroom available in Zone B without restriction. 10. Phone: limited to [facility] cordless phone at RN discretion. Due to VOLUNTARY status, if patient wishes to leave [facility], staff will contact [facility] Crisis Screener ([phone]) and Express Manager ([phone]) as soon as possible. In the event of elopement, notify [facility] Police ([phone]). Patient is currently voluntarily at [facility] and seeking inpatient admission when a bed becomes available. [facility] Frontline [employer] Layup Line Back Feeder will continue seeking place ment. Please contact the Express Manager ([phone]) and [facility] Plywood Layup Line Back Feeder ([phone]) for any needed changes in the Safety Plan. Safety plan has been provided to interdepartmental care team.
--- NOTE | 2024-08-27 14:38 | PDOC.CMSAFE ---
Date of service: 08/27/24 Time of Service: 14:39 Care Management Safety Plan Status Status: Voluntary Reason for Wait Reason for Wait: Inpatient Admission Safety Plan Safety Plan: VOLUNTARY FOR INPATIENT PSYCHIATRIC STABILIZATION.? Patient is appropriate in all interactions since arriving at [facility]; Pt has demonstrated appropriate coping and communication skills, has articulated his or her needs and concerns and is fully engaged during staff interactions. Safety plan has been established with patient, and care team, to adhere to patient goals, identify restrictions based on behavioral status, address nutrition, and determine allowed personal belongings, tools for hygiene and personal care. Determine level of activity including ambulation, level of supervision, visitors, and determine privileges based on behaviors and level of engagement by pt. VOLUNTARY SAFETY PLAN: 1. Will remain on suicide precautions, in paper clothes 2. Will remain in Zone B under direct supervision of one-on-one staff at all times provided by [employer]; MARLEE, PERSONAL SECRETARY decision support manager. 3. May have paper cups, plates, finger foods as well as a cardboard spoon with which to eat meals. 4. Follow [facility] Management of the Admitted Behavioral Health Patient policy. 5. Shower available in Zone B without restriction. 6. Personal belongings-soft items permitted at RN discretion. 7. Visitors- at RN discretion. 8. Activities: soft cart items approved per RN discretion. 9.? Bathroom available in Zone B without restriction. 10. Phone: limited to [facility] cordless phone at RN discretion. Due to VOLUNTARY status, if patient wishes to leave [facility], staff will contact [facility] Crisis Screener ([phone]) and Dispatch Associate ([phone]) as soon as possible. In the event of elopement, notify [facility] Police ([phone]). Patient is currently voluntarily at [facility] and seeking inpatient admission when a bed becomes available. [facility] Frontline Habilitation Specialist will continue seeking placement. Please contact the Dispatch Associate ([phone]) and [facility] Habilitation Specialist ([phone]) for any needed changes in the Safety Plan. Safety plan has been provided to interdepartmental care team.
--- NOTE | 2024-08-27 14:40 | PDOC.CMPRO ---
Date of service: 08/27/24 Time of Service: 14:40 Care Management Progress Note Progress Note Text Progress Note Text: CM met with staff in [facility] to discuss the plan of care, including the primary RN, [facility], and CM. Per RN, Cecilia has been appropriate in all interactions; she has been pleasant and tearful. Cecilia will take a shower today for her comfort; RN will support her with this, as needed. Per [facility], Cecilia is known to the clinician; she was recently in zone and returned home with a safety plan. Cecilia is seeking inpatient psychiatric treatment. Referrals have been placed at all accepting hospitals. Safety plan in place. CM will continue to follow. SDOH(Care Management) Screening Will the Patient Participate in the Screening?: Unable to obtain
--- NOTE | 2024-08-27 16:54 | ED.PROG_ITS ---
Date of service: 08/27/24 Time of Service: 16:54 Medical Decision Making Care assumed from outgoing provider. Patient is a 48-year-old female pending voluntary inpatient psychiatric placement. She is medically cleared. I have ordered her nighttime oxygen which she uses at home. Otherwise no issues during my shift. Quality:[facility] Health Related Social Needs: No Data to Display Sign Out Sign Out Data: Sign Out Comment: Patient sent in by [facility] for voluntary inpatient psychiatric admission. She is medically cleared with no significant lab abnormalities. Medications have been ordered including as needed albuterol. Last updated by Ronaldo Cole MD at 08/27/24 06:33 Sign Out Comment: 48-year-old female medically cleared pending voluntary inpatient psychiatric hospitalization. Home medications ordered. Regular diet and safety tray. No active behavioral issues last shift. Last updated by Patel Mckinney MD at 08/27/24 16:43 Discharge Plan Discharge Details Chief Complaint: PsychEval Primary Care Provider: BRYCE SMITH ED Provider: Jenni Colindres Home Meds and New Rx's Prescriptions: No Action (DME) Oxygen Tank See Rx Instructions .Route Qty: 1 0RF Rx Instructions: 2LPM with exertion pregabalin [Lyrica] 50 mg capsule 50 mg PO BID Patient Comments: prescribed by JAMES Jennings ipratropium-albuterol 0.5 mg-3 mg(2.5 mg base)/3 mL solution for nebulization 3 ml UPD Q4H PRN PRN (Reason: shortness of breath or wheezing) Qty: 540 12RF Jardiance 25 mg tablet 25 mg PO DAILY Dulera 200-5 mcg/actuation HFA aerosol inhaler 2 puff inhalation BID Qty: 13 12RF Rx Instructions: Rinse mouth after use Spiriva Respimat 2.5 mcg/actuation mist 2 puff inhalation DAILY Qty: 4 12RF albuterol sulfate [Proventil HFA] 90 mcg/actuation HFA aerosol inhaler 2 puff inhalation Q6H PRN (Reason: shortness of breath or wheezing) Qty: 8.5 12RF buspirone 30 mg tablet 30 mg PO BID Patient Comments: reports she is taking 60mg BID cyclobenzaprine 10 mg tablet 10 mg PO BID PRN (Reason: muscle spasm) omeprazole 20 mg capsule,delayed release(DR/EC) 20 mg PO DAILY lisinopril 20 mg Tablet 20 mg PO DAILY divalproex [Depakote] 500 mg Tablet,Delayed Release (Dr/Ec) 1,000 mg PO QHS risperidone [Risperdal] 2 mg Tablet 6 mg PO HS spironolactone 25 mg Tablet 25 mg PO DAILY Qty: 30 0RF escitalopram oxalate 20 mg tablet 20 mg PO DAILY Patient Comments: TAKE 1 TABLET BY MOUTH DAILY albuterol sulfate 2.5 mg /3 mL (0.083 %) solution for nebulization 2.5 mg inhalation Q4H PRNQty: 90 0RF Ozempic 0.25 mg or 0.5 mg (2 mg/3 mL) pen injector 0.25 mg SUBCUT .weekly Patient Comments: INJECT 0.25MG UNDER THE SKIN ONCE WEEKLY atomoxetine 40 mg capsule 40 mg PO DAILY Patient Comments: TAKE ONE CAPSULE BY MOUTH EVERY MORNING melatonin 10 mg capsule 10 mg PO HS PRN lidocaine 5 % adhesive patch,medicated 1 patch transdermal DAILY PRN Patient Comments: APPLY 1 PATCH TOPICALLY UP TO 12 HOURS AND OFF FOR 12 HOURS Trulicity 4.5 mg/0.5 mL pen injector 3 mg SUBCUT ONCE Patient Comments: INJECT 4.5MG UNDER THE SKIN ONCE WEEKLY DIRECTED prazosin 5 mg capsule 10 mg PO QHS Patient Comments: TAKE TWO CAPSULES BY MOUTH EVERY EVENING AT BEDTIME ibuprofen 800 mg tablet 800 mg PO BID PRN Patient Comments: TAKE ONE TABLET BY MOUTH TWICE A DAY NEEDED furosemide [Lasix] 20 mg tablet 20 mg PO DAILY Qty: 14 0RF
[2024-08-27 18:20] VITALS: O2SAT 3
[2024-08-27 18:42] VITALS: O2SAT 96
[2024-08-27] MEDS: Pregabalin 25 MG CAP 50 MG PO (19:50)
[2024-08-27] MEDS: Divalproex 500 MG TABEC 1000 MG PO (19:50)
[2024-08-27] MEDS: Prazosin 5 MG CAP 10 MG PO (19:50)
[2024-08-27] MEDS: risperiDONE 1 MG TAB 6 MG PO (19:51)
--- NOTE | 2024-08-28 07:20 | W.EDPROG ---
Date of service: 08/28/24 Time of Service: 07:20 Medical Decision Making Patient signed out to me pending voluntary placement for SI, no reported issues on prior shift and currently resting in bed with no new acute complaints. Will continue to monitor until safe disposition found. Quality:[facility] Health Related Social Needs: No Data to Display Sign Out Sign Out Data: Sign Out Comment: Patient sent in by mental health for voluntary inpatient psychiatric admission. She is medically cleared with no significant lab abnormalities. Medications have been ordered including as needed albuterol. Last updated by Ronaldo Cole MD at 08/27/24 06:33 Sign Out Comment: 48-year-old female medically cleared pending voluntary inpatient psychiatric hospitalization. Home medications ordered. Regular diet and safety tray. No active behavioral issues last shift. Last updated by aPtel Mckinney MD at 08/27/24 16:43 Sign Out Comment: pending voluntary inpatient psych hospitalization uses O2 at night for sleep no issues during shift Last updated by Jenni Colindres MD at 08/27/24 21:41 Sign Out Comment: Voluntary placement, pending inpatient hospitalization. No issues throughout the night. Patient needs oxygen during the night for sleep, but can be in zone B during the day. Last updated by Matty Palacio DO at 08/28/24 07:04 Discharge Plan Discharge Details Chief Complaint: PsychEval Primary Care Provider: BRYCE SMITH ED Provider: Uriah Blue Home Meds and New Rx's Prescriptions: No Action (DME) Oxygen Tank See Rx Instructions .Route Qty: 1 0RF Rx Instructions: 2LPM with exertion pregabalin [Lyrica] 50 mg capsule 50 mg PO BID Patient Comments: prescribed by Bryce Smith, JAMES ipratropium-albuterol 0.5 mg-3 mg(2.5 mg base)/3 mL solution for nebulization 3 ml UPD Q4H PRN PRN (Reason: shortness of breath or wheezing) Qty: 540 12RF Jardiance 25 mg tablet 25 mg PO DAILY Dulera 200-5 mcg/actuation HFA aerosol inhaler 2 puff inhalation BID Qty: 13 12RF Rx Instructions: Rinse mouth after use Spiriva Respimat 2.5 mcg/actuation mist 2 puff inhalation DAILY Qty: 4 12RF albuterol sulfate [Proventil HFA] 90 mcg/actuation HFA aerosol inhaler 2 puff inhalation Q6H PRN (Reason: shortness of breath or wheezing) Qty: 8.5 12RF buspirone 30 mg tablet 30 mg PO BID Patient Comments: reports she is taking 60mg BID cyclobenzaprine 10 mg tablet 10 mg PO BID PRN (Reason: muscle spasm) omeprazole 20 mg capsule,delayed release(DR/EC) 20 mg PO DAILY lisinopril 20 mg Tablet 20 mg PO DAILY divalproex [Depakote] 500 mg Tablet,Delayed Release (Dr/Ec) 1,000 mg PO QHS risperidone [Risperdal] 2 mg Tablet 6 mg PO HS spironolactone 25 mg Tablet 25 mg PO DAILY Qty: 30 0RF escitalopram oxalate 20 mg tablet 20 mg PO DAILY Patient Comments: TAKE 1 TABLET BY MOUTH DAILY albuterol sulfate 2.5 mg /3 mL (0.083 %) solution for nebulization 2.5 mg inhalation Q4H PRNQty: 90 0RF Ozempic 0.25 mg or 0.5 mg (2 mg/3 mL) pen injector 0.25 mg SUBCUT .weekly Patient Comments: INJECT 0.25MG UNDER THE SKIN ONCE WEEKLY atomoxetine 40 mg capsule 40 mg PO DAILY Patient Comments: TAKE ONE CAPSULE BY MOUTH EVERY MORNING melatonin 10 mg capsule 10 mg PO HS PRN lidocaine 5 % adhesive patch,medicated 1 patch transdermal DAILY PRN Patient Comments: APPLY 1 PATCH TOPICALLY UP TO 12 HOURS AND OFF FOR 12 HOURS Trulicity 4.5 mg/0.5 mL pen injector 3 mg SUBCUT ONCE Patient Comments: INJECT 4.5MG UNDER THE SKIN ONCE WEEKLY DIRECTED prazosin 5 mg capsule 10 mg PO QHS Patient Comments: TAKE TWO CAPSULES BY MOUTH EVERY EVENING AT BEDTIME ibuprofen 800 mg tablet 800 mg PO BID PRN Patient Comments: TAKE ONE TABLET BY MOUTH TWICE A DAY NEEDED furosemide [Lasix] 20 mg tablet 20 mg PO DAILY Qty: 14 0RF
[2024-08-28 07:47] VITALS: BP 158/90; PULSE 99; RESP 18; TEMP 36.4; O2SAT 93
[2024-08-28] MEDS: Escitalopram 10 MG TAB 20 MG PO (08:07)
[2024-08-28] MEDS: Spironolactone 25 MG TAB PO (08:08)
[2024-08-28] MEDS: Pregabalin 25 MG CAP 50 MG PO ×2 (08:08→20:06)
[2024-08-28] MEDS: Lisinopril 20 MG TAB PO (08:08)
[2024-08-28] MEDS: Omeprazole 20 MG CAPCR PO (08:08)
[2024-08-28] MEDS: busPIRone 15 MG TAB 30 MG PO ×2 (08:08→20:06)
[2024-08-28] MEDS: Empaglifozin 25 MG TAB PO (08:08)
[2024-08-28] MEDS: Furosemide 20 MG TAB PO (08:08)
[2024-08-28] MEDS: Budesonide/Formoterol 160/4.5 6 GM 60 PUFF INH IH (08:09)
[2024-08-28] MEDS: Tiotropium Bromide-Respimat 10 PUFF INH 2 PUFF IH (08:09)
[2024-08-28] MEDS: Nystatin POWDER 60 GM JAR TP (08:09)
[2024-08-28] MEDS: Nicotine 2 MG GUM CH (16:33)
--- NOTE | 2024-08-28 19:14 | W.EDPROG ---
Date of service: 08/28/24 Time of Service: 19:14 Medical Decision Making Care assumed from off going team, patient is pending voluntary inpatient psychiatric placement. Medically cleared. No issues during shift. Quality:SDOH Health Related Social Needs: No Data to Display Sign Out Sign Out Data: Sign Out Comment: Patient sent in by mental [facility] for voluntary inpatient psychiatric admission. She is medically cleared with no significant lab abnormalities. Medications have been ordered including as needed albuterol. Last updated by Ronaldo Cole MD at 08/27/24 06:33 Sign Out Comment: 48-year-old female medically cleared pending voluntary inpatient psychiatric hospitalization. Home medications ordered. Regular diet and safety tray. No active behavioral issues last shift. Last updated by Patel Mckinney MD at 08/27/24 16:43 Sign Out Comment: pending voluntary inpatient psych hospitalization uses O2 at night for sleep no issues during shift Last updated by Jenni Colindres MD at 08/27/24 21:41 Sign Out Comment: Voluntary placement, pending inpatient hospitalization. No issues throughout the night. Patient needs oxygen during the night for sleep, but can be in zone B during the day. Last updated by Matty Palacio DO at 08/28/24 07:04 Sign Out Comment: Patient seeking voluntary placement, no issues during my shift. Last updated by Uriah Blue MD at 08/28/24 15:55 Discharge Plan Discharge Details Chief Complaint: PsychEval Primary Care Provider: BRYCE SMITH ED Provider: Jenni Colindres Home Meds and New Rx's Prescriptions: No Action (DME) Oxygen Tank See Rx Instructions .Route Qty: 1 0RF Rx Instructions: 2LPM with exertion pregabalin [Lyrica] 50 mg capsule 50 mg PO BID Patient Comments: prescribed by JAMES Jennings ipratropium-albuterol 0.5 mg-3 mg(2.5 mg base)/3 mL solution for nebulization 3 ml UPD Q4H PRN PRN (Reason: shortness of breath or wheezing) Qty: 540 12RF Jardiance 25 mg tablet 25 mg PO DAILY Dulera 200-5 mcg/actuation HFA aerosol inhaler 2 puff inhalation BID Qty: 13 12RF Rx Instructions: Rinse mouth after use Spiriva Respimat 2.5 mcg/actuation mist 2 puff inhalation DAILY Qty: 4 12RF albuterol sulfate [Proventil HFA] 90 mcg/actuation HFA aerosol inhaler 2 puff inhalation Q6H PRN (Reason: shortness of breath or wheezing) Qty: 8.5 12RF buspirone 30 mg tablet 30 mg PO BID Patient Comments: reports she is taking 60mg BID cyclobenzaprine 10 mg tablet 10 mg PO BID PRN (Reason: muscle spasm) omeprazole 20 mg capsule,delayed release(DR/EC) 20 mg PO DAILY lisinopril 20 mg Tablet 20 mg PO DAILY divalproex [Depakote] 500 mg Tablet,Delayed Release (Dr/Ec) 1,000 mg PO QHS risperidone [Risperdal] 2 mg Tablet 6 mg PO HS spironolactone 25 mg Tablet 25 mg PO DAILY Qty: 30 0RF escitalopram oxalate 20 mg tablet 20 mg PO DAILY Patient Comments: TAKE 1 TABLET BY MOUTH DAILY albuterol sulfate 2.5 mg /3 mL (0.083 %) solution for nebulization 2.5 mg inhalation Q4H PRNQty: 90 0RF Ozempic 0.25 mg or 0.5 mg (2 mg/3 mL) pen injector 0.25 mg SUBCUT .weekly Patient Comments: INJECT 0.25MG UNDER THE SKIN ONCE WEEKLY atomoxetine 40 mg capsule 40 mg PO DAILY Patient Comments: TAKE ONE CAPSULE BY MOUTH EVERY MORNING melatonin 10 mg capsule 10 mg PO HS PRN lidocaine 5 % adhesive patch,medicated 1 patch transdermal DAILY PRN Patient Comments: APPLY 1 PATCH TOPICALLY UP TO 12 HOURS AND OFF FOR 12 HOURS Trulicity 4.5 mg/0.5 mL pen injector 3 mg SUBCUT ONCE Patient Comments: INJECT 4.5MG UNDER THE SKIN ONCE WEEKLY DIRECTED prazosin 5 mg capsule 10 mg PO QHS Patient Comments: TAKE TWO CAPSULES BY MOUTH EVERY EVENING AT BEDTIME ibuprofen 800 mg tablet 800 mg PO BID PRN Patient Comments: TAKE ONE TABLET BY MOUTH TWICE A DAY NEEDED furosemide [Lasix] 20 mg tablet 20 mg PO DAILY Qty: 14 0RF
--- NOTE | 2024-08-28 19:19 | NUR.NOTE ---
Nursing Note: pt moved to room 9 for monitoring and the pt is O2 dependent, O2 tank outside of room. 1:1 obs
[2024-08-28] MEDS: Divalproex 500 MG TABEC 1000 MG PO (20:05)
[2024-08-28] MEDS: risperiDONE 1 MG TAB 6 MG PO (20:06)
[2024-08-28] MEDS: Prazosin 5 MG CAP 10 MG PO (20:07)
--- NOTE | 2024-08-29 07:00 | W.EDPROG ---
Date of service: 08/29/24 Time of Service: 07:00 Medical Decision Making 48-year-old female here seeking voluntary placement for depression and thoughts of self-harm, no reported issues on prior shift and currently has no new acute complaints. Will continue to monitor until safe disposition found Quality:SDOH Health Related Social Needs: No Data to Display Sign Out Sign Out Data: Sign Out Comment: Patient sent in by mental health for voluntary inpatient psychiatric admission. She is medically cleared with no significant lab abnormalities. Medications have been ordered including as needed albuterol. Last updated by Ronaldo Cole MD at 08/27/24 06:33 Sign Out Comment: 48-year-old female medically cleared pending voluntary inpatient psychiatric hospitalization. Home medications ordered. Regular diet and safety tray. No active behavioral issues last shift. Last updated by Patel Mckinney MD at 08/27/24 16:43 Sign Out Comment: pending voluntary inpatient psych hospitalization uses O2 at night for sleep no issues during shift Last updated by Jenni Colindres MD at 08/27/24 21:41 Sign Out Comment: Voluntary placement, pending inpatient hospitalization. No issues throughout the night. Patient needs oxygen during the night for sleep, but can be in zone B during the day. Last updated by Matty Palacio DO at 08/28/24 07:04 Sign Out Comment: Patient seeking voluntary placement, no issues during my shift. Last updated by Uriah Blue MD at 08/28/24 15:55 Sign Out Comment: pending voluntary inpatient psych hospitalization uses O2 at night for sleep no issues during shift Last updated by Jenni Colindres MD at 08/28/24 22:45 Sign Out Comment: Patient stable throughout the night. No interventions needed. Patient's O2 remained stable, she will be transition back to zone B Last updated by Matty Palacio DO at 08/29/24 06:53 Discharge Plan Discharge Details Chief Complaint: PsychEval Primary Care Provider: BRYCE SMITH ED Provider: Uriah Blue Home Meds and New Rx's Prescriptions: No Action (DME) Oxygen Tank See Rx Instructions .Route Qty: 1 0RF Rx Instructions: 2LPM with exertion pregabalin [Lyrica] 50 mg capsule 50 mg PO BID Patient Comments: prescribed by Bryce Francisco, PCP ipratropium-albuterol 0.5 mg-3 mg(2.5 mg base)/3 mL solution for nebulization 3 ml UPD Q4H PRN PRN (Reason: shortness of breath or wheezing) Qty: 540 12RF Jardiance 25 mg tablet 25 mg PO DAILY Dulera 200-5 mcg/actuation HFA aerosol inhaler 2 puff inhalation BID Qty: 13 12RF Rx Instructions: Rinse mouth after use Spiriva Respimat 2.5 mcg/actuation mist 2 puff inhalation DAILY Qty: 4 12RF albuterol sulfate [Proventil HFA] 90 mcg/actuation HFA aerosol inhaler 2 puff inhalation Q6H PRN (Reason: shortness of breath or wheezing) Qty: 8.5 12RF buspirone 30 mg tablet 30 mg PO BID Patient Comments: reports she is taking 60mg BID cyclobenzaprine 10 mg tablet 10 mg PO BID PRN (Reason: muscle spasm) omeprazole 20 mg capsule,delayed release(DR/EC) 20 mg PO DAILY lisinopril 20 mg Tablet 20 mg PO DAILY divalproex [Depakote] 500 mg Tablet,Delayed Release (Dr/Ec) 1,000 mg PO QHS risperidone [Risperdal] 2 mg Tablet 6 mg PO HS spironolactone 25 mg Tablet 25 mg PO DAILY Qty: 30 0RF escitalopram oxalate 20 mg tablet 20 mg PO DAILY Patient Comments: TAKE 1 TABLET BY MOUTH DAILY albuterol sulfate 2.5 mg /3 mL (0.083 %) solution for nebulization 2.5 mg inhalation Q4H PRNQty: 90 0RF Ozempic 0.25 mg or 0.5 mg (2 mg/3 mL) pen injector 0.25 mg SUBCUT .weekly Patient Comments: INJECT 0.25MG UNDER THE SKIN ONCE WEEKLY atomoxetine 40 mg capsule 40 mg PO DAILY Patient Comments: TAKE ONE CAPSULE BY MOUTH EVERY MORNING melatonin 10 mg capsule 10 mg PO HS PRN lidocaine 5 % adhesive patch,medicated 1 patch transdermal DAILY PRN Patient Comments: APPLY 1 PATCH TOPICALLY UP TO 12 HOURS AND OFF FOR 12 HOURS Trulicity 4.5 mg/0.5 mL pen injector 3 mg SUBCUT ONCE Patient Comments: INJECT 4.5MG UNDER THE SKIN ONCE WEEKLY DIRECTED prazosin 5 mg capsule 10 mg PO QHS Patient Comments: TAKE TWO CAPSULES BY MOUTH EVERY EVENING AT BEDTIME ibuprofen 800 mg tablet 800 mg PO BID PRN Patient Comments: TAKE ONE TABLET BY MOUTH TWICE A DAY NEEDED furosemide [Lasix] 20 mg tablet 20 mg PO DAILY Qty: 14 0RF
[2024-08-29] MEDS: Omeprazole 20 MG CAPCR PO (07:23)
[2024-08-29 07:51] VITALS: BP 137/77; PULSE 98; O2SAT 93
[2024-08-29] MEDS: Pregabalin 25 MG CAP 50 MG PO (08:08)
[2024-08-29] MEDS: Furosemide 20 MG TAB PO (08:09)
[2024-08-29] MEDS: Spironolactone 25 MG TAB PO (08:09)
[2024-08-29] MEDS: busPIRone 15 MG TAB 30 MG PO (08:10)
[2024-08-29] MEDS: Empaglifozin 25 MG TAB PO (08:10)
[2024-08-29] MEDS: Escitalopram 10 MG TAB 20 MG PO (08:11)
[2024-08-29] MEDS: Lisinopril 20 MG TAB PO (08:11)
[2024-08-29] MEDS: Budesonide/Formoterol 160/4.5 6 GM 60 PUFF INH IH (09:15)
[2024-08-29] MEDS: Tiotropium Bromide-Respimat 10 PUFF INH 2 PUFF IH (09:15)
[2024-08-29 11:07] VITALS: TEMP 36.8; O2SAT 91
--- NOTE | 2024-08-29 11:12 | CMSP_ITS ---
Date of service: 08/29/24 Time of Service: 11:12 Care Management Safety Plan Status Status: Voluntary Reason for Wait Reason for Wait: Inpatient Admission Safety Plan Safety Plan: VOLUNTARY FOR INPATIENT PSYCHIATRIC STABILIZATION.? Patient is appropriate in all interactions since arriving at [facility]; Pt has demonstrated appropriate coping and communication skills, has articulated his or her needs and concerns and is fully engaged during staff interactions. Safety plan has been established with patient, and care team, to adhere to patient goals, identify restrictions based on behavioral status, address nutrition, and determine allowed personal belongings, tools for hygiene and personal care. Determine level of activity including ambulation, level of supervision, visitors, and determine privileges based on behaviors and level of engagement by pt. VOLUNTARY SAFETY PLAN: 1. Will remain on suicide precautions, in paper clothes 2. Will remain in Zone B under direct supervision of one-on-one staff at all times provided by [employer]; MARLEE, REAR ADMIRAL bump grader operator. 3. May have paper cups, plates, finger foods as well as a cardboard spoon with which to eat meals. 4. Follow [facility] Management of the Admitted Behavioral Health Patient policy. 5. Shower available in Zone B without restriction. 6. Personal belongings-soft items permitted at RN discretion. 7. Visitors- at RN discretion. 8. Activities: soft cart items approved per RN discretion. 9.? Bathroom available in Zone B without restriction. 10. Phone: limited to [facility] cordless phone at RN discretion. Due to VOLUNTARY status, if patient wishes to leave [facility], staff will contact [facility] Crisis Screener ([phone]) and Grinding Mill Operator ([phone]) as soon as possible. In the event of elopement, notify [facility] Police ([phone]). Patient is currently voluntarily at [facility] and seeking inpatient admission when a bed becomes available. [facility] Frontline Cdl Bulk Driver will continue seeking placement. Please contact the Grinding Mill Operator ([phone]) and [facility] Cdl Bulk Driver ([phone]) for any needed changes in the Safety Plan. Safety plan has been provided to interdepartmental care team.
--- NOTE | 2024-08-29 11:12 | PDOC.CMSAFE ---
Date of service: 08/29/24 Time of Service: 11:12 Care Management Safety Plan Status Status: Voluntary Reason for Wait Reason for Wait: Inpatient Admission Safety Plan Safety Plan: VOLUNTARY FOR INPATIENT PSYCHIATRIC STABILIZATION.? Patient is appropriate in all interactions since arriving at [facility]; Pt has demonstrated appropriate coping and communication skills, has articulated his or her needs and concerns and is fully engaged during staff interactions. Safety plan has been established with patient, and care team, to adhere to patient goals, identify restrictions based on behavioral status, address nutrition, and determine allowed personal belongings, tools for hygiene and personal care. Determine level of activity including ambulation, level of supervision, visitors, and determine privileges based on behaviors and level of engagement by pt. VOLUNTARY SAFETY PLAN: 1. Will remain on suicide precautions, in paper clothes 2. Will remain in Zone B under direct supervision of one-on-one staff at all times provided by [employer]; MARLEE, PRINCIPAL ACCOUNT CLERK esl professor. 3. May have paper cups, plates, finger foods as well as a cardboard spoon with which to eat meals. 4. Follow [facility] Management of the Admitted Behavioral Health Patient policy. 5. Shower available in Zone B without restriction. 6. Personal belongings-soft items permitted at RN discretion. 7. Visitors- at RN discretion. 8. Activities: soft cart items approved per RN discretion. 9.? Bathroom available in Zone B without restriction. 10. Phone: limited to [facility] cordless phone at RN discretion. Due to VOLUNTARY status, if patient wishes to leave [facility], staff will contact [facility] Crisis Screener ([phone]) and Master Printer ([phone]) as soon as possible. In the event of elopement, notify [facility] Police ([phone]). Patient is currently voluntarily at [facility] and seeking inpatient admission when a bed becomes available. [facility] Frontline Straightener And Aligner will continue seeking placement. Please contact the Master Printer ([phone]) and [facility] Straightener And Aligner ([phone]) for any needed changes in the Safety Plan. Safety plan has been provided to interdepartmental care team.
[2024-08-29] MEDS: Ibuprofen 600 MG TAB PO (11:30)
[2024-08-29] MEDS: Nystatin POWDER 60 GM JAR TP (11:56)
== END 2024-08-29 16:28 ==
PROVIDERS: Emergency Medicine; Emergency Provider Emergency Medicine; PCP Nurse Practitioner Family
DX: R45.851 Suicidal ideations (principal); F32.A Depression, unspecified; F17.210 Nicotine dependence, cigarettes, uncomplicated; E11.9 Type 2 diabetes mellitus without complications; I10 Essential (primary) hypertension; J44.9 Chronic obstructive pulmonary disease, unspecified; Z99.81 Dependence on supplemental oxygen; Z79.84 Long term (current) use of oral hypoglycemic drugs; Z79.85 Long-term (current) use of injectable non-insulin antidiabetic drugs
CPT/HCPCS: 00123; 80053; 80307; 81025; 85027; 93005; 99285; 80164; 80320; 80329; 93010

== ENCOUNTER 2024-10-26 21:43 | Emergency (ER) | payer MEDICARE, MEDICAID, SELFPAY ==
[2024-10-26] VITALS (21 sets, daily range): BP systolic 158–205; BP diastolic 69–118; PULSE 94–108; RESP 5–26; TEMP 36.9; O2SAT 84–100
--- NOTE | 2024-10-26 21:30 | DI.RAD_ITS ---
Exam(s) XR PORTABLE CHEST AP EXAM: XR PORTABLE CHEST AP CLINICAL HISTORY: cough TECHNIQUE: 2D digital imaging was performed. COMPARISON: CR XR CHEST 2V PA LATERAL from 07/01/2024 FINDINGS: Exam is limited by under penetration, overlying monitoring leads body habitus. LUNGS: No focal infiltrate visible. Mild pulmonary vascular prominence. No pleural abnormality seen . HEART: Mildly enlarged. AORTA: Normal diameter. BONES: Old left rib fracture. Soft tissues: Unremarkable. IMPRESSION: Limited exam. No acute findings. DATA REPOSITORY: RADIATION DOSE DELIVERED:
--- NOTE | 2024-10-26 21:30 | RT.EKG_ITS ---
APPROVED REPORT Exam: Resting ECG Reason for Exam: SOB Patient Location: E HR:105 bpm ECG Measurements Heart Rate 105 AXIS MO 145 P 60 QRSd 78 QRS 75 QT 338 T 10 QTc 447 Conclusion Sinus tachycardia 105 normal axis no stemi
--- NOTE | 2024-10-26 21:44 | W.ED.GENAD ---
Discharge Plan Discharge Details Chief Complaint: SOB Primary Care Provider: BRYCE SMITH ED Provider: Jenni Colindres Home Meds and New Rx's Prescriptions: No Action (DME) Oxygen Tank See Rx Instructions .Route Qty: 1 0RF Rx Instructions: 2LPM with exertion pregabalin [Lyrica] 50 mg capsule 50 mg PO BID Patient Comments: prescribed by Bryce Smith, PCP ipratropium-albuterol 0.5 mg-3 mg(2.5 mg base)/3 mL solution for nebulization 3 ml UPD Q4H PRN PRN (Reason: shortness of breath or wheezing) Qty: 540 12RF Jardiance 25 mg tablet 25 mg PO DAILY Dulera 200-5 mcg/actuation HFA aerosol inhaler 2 puff inhalation BID Qty: 13 12RF Rx Instructions: Rinse mouth after use Spiriva Respimat 2.5 mcg/actuation mist 2 puff inhalation DAILY Qty: 4 12RF albuterol sulfate [Proventil HFA] 90 mcg/actuation HFA aerosol inhaler 2 puff inhalation Q6H PRN (Reason: shortness of breath or wheezing) Qty: 8.5 12RF buspirone 30 mg tablet 30 mg PO BID Patient Comments: reports she is taking 60mg BID cyclobenzaprine 10 mg tablet 10 mg PO BID PRN (Reason: muscle spasm) omeprazole 20 mg capsule,delayed release(DR/EC) 20 mg PO DAILY lisinopril 20 mg Tablet 20 mg PO DAILY divalproex [Depakote] 500 mg Tablet,Delayed Release (Dr/Ec) 1,000 mg PO QHS risperidone [Risperdal] 2 mg Tablet 6 mg PO HS spironolactone 25 mg Tablet 25 mg PO DAILY Qty: 30 0RF escitalopram oxalate 20 mg tablet 20 mg PO DAILY Patient Comments: TAKE 1 TABLET BY MOUTH DAILY albuterol sulfate 2.5 mg /3 mL (0.083 %) solution for nebulization 2.5 mg inhalation Q4H PRNQty: 90 0RF Ozempic 0.25 mg or 0.5 mg (2 mg/3 mL) pen injector 0.25 mg SUBCUT .weekly Patient Comments: INJECT 0.25MG UNDER THE SKIN ONCE WEEKLY atomoxetine 40 mg capsule 40 mg PO DAILY Patient Comments: TAKE ONE CAPSULE BY MOUTH EVERY MORNING melatonin 10 mg capsule 10 mg PO HS PRN lidocaine 5 % adhesive patch,medicated 1 patch transdermal DAILY PRN Patient Comments: APPLY 1 PATCH TOPICALLY UP TO 12 HOURS AND OFF FOR 12 HOURS Trulicity 4.5 mg/0.5 mL pen injector 3 mg SUBCUT ONCE Patient Comments: INJECT 4.5MG UNDER THE SKIN ONCE WEEKLY DIRECTED prazosin 5 mg capsule 10 mg PO QHS Patient Comments: TAKE TWO CAPSULES BY MOUTH EVERY EVENING AT BEDTIME ibuprofen 800 mg tablet 800 mg PO BID PRN Patient Comments: TAKE ONE TABLET BY MOUTH TWICE A DAY NEEDED furosemide [Lasix] 20 mg tablet 20 mg PO DAILY Qty: 14 0RF HPI General Date/Time Provider Initiated Documentation: 10/26/24 21:50. Limitations to Documentation: no limitations. Information obtained by: patient, EMS and old records reviewed. HPI Narrative: 48-year-old female with past medical history of tobacco dependence, asthma, obesity hypoventilation presents for evaluation of shortness of breath. Patient was brought in by ambulance. She reports that she has been having increased shortness of breath and cough productive of thick mucus for the last few days. No fever. Reports that she did a nebulizer treatment at home without much improvement. Did get a second 1 by EMS and route to the hospital. She reports that she does now feel a little bit better. She reports that she still smokes 5 cigarettes/day. She states that her baseline saturation is between 85 to 90%. Related Data Home Medications ?Medication ?Instructions ?Recorded ?Confirmed divalproex 500 mg tablet,delayed 1,000 mg PO QHS 01/18/20 10/26/24 release (Depakote) lisinopril 20 mg tablet 20 mg PO DAILY 01/18/20 10/26/24 risperidone 2 mg tablet (Risperdal) 6 mg PO HS 01/18/20 10/26/24 ibuprofen 800 mg tablet 800 mg PO BID PRN 11/20/22 10/26/24 Oxygen #1 ea 12/13/22 10/26/24 spironolactone 25 mg tablet 25 mg PO DAILY #30 tabs 05/06/23 10/26/24 furosemide 20 mg tablet (Lasix) 20 mg PO DAILY #14 tabs 06/13/23 10/26/24 ipratropium 0.5 mg-albuterol 3 mg 3 ml UPD Q4H PRN PRN shortness of 09/12/23 10/26/24 (2.5 mg base)/3 mL nebulization breath or wheezing #540 mL soln empagliflozin 25 mg tablet 25 mg PO DAILY 12/15/23 10/26/24 (Jardiance) buspirone 30 mg tablet 30 mg PO BID 02/09/24 10/26/24 cyclobenzaprine 10 mg tablet 10 mg PO BID PRN muscle spasm 02/09/24 10/26/24 omeprazole 20 mg capsule,delayed 20 mg PO DAILY 02/09/24 10/26/24 release escitalopram oxalate 20 mg tablet 20 mg PO DAILY 02/13/24 10/26/24 albuterol sulfate 2.5 mg/3 mL 2.5 mg (3 mL) inhalation Q4H PRN 02/14/24 10/26/24 (0.083 %) solution for nebulization #90 mL pregabalin 50 mg capsule (Lyrica) 50 mg PO BID 06/21/24 10/26/24 albuterol sulfate 90 mcg/actuation 2 puff inhalation Q6H PRN 08/04/24 10/26/24 aerosol inhaler (Proventil HFA) shortness of breath or wheezing #8.5 grams mometasone-formoterol HFA 200 2 puff inhalation BID #13 grams 08/04/24 10/26/24 mcg-5 mcg/actuation aerosol inhaler (Dulera) tiotropium bromide 2.5 2 puff inhalation DAILY #4 grams 08/04/24 10/26/24 mcg/actuation mist for inhalation (Spiriva Respimat) atomoxetine 40 mg capsule 40 mg PO DAILY 08/19/24 10/26/24 dulaglutide 4.5 mg/0.5 mL 3 mg subcut ONCE 08/19/24 10/26/24 subcutaneous pen injector ([employer]) lidocaine 5 % topical patch 1 patch transdermal DAILY PRN 08/19/24 10/26/24 melatonin 10 mg capsule 10 mg PO HS PRN 08/19/24 10/26/24 semaglutide 0.25 mg or 0.5 mg (2 0.25 mg subcut .weekly 08/19/24 10/26/24 mg/3 mL) subcutaneous pen injector (Ozempic) prazosin 5 mg capsule 10 mg PO QHS 08/20/24 10/26/24 Previous Rx's ?Medication ?Instructions ?Recorded Oxygen #1 ea 12/13/22 spironolactone 25 mg tablet 25 mg PO DAILY #30 tabs 05/06/23 furosemide 20 mg tablet (Lasix) 20 mg PO DAILY #14 tabs 06/13/23 ipratropium 0.5 mg-albuterol 3 mg 3 ml UPD Q4H PRN PRN shortness of 09/12/23 (2.5 mg base)/3 mL nebulization breath or wheezing #540 mL soln albuterol sulfate 2.5 mg/3 mL 2.5 mg (3 mL) inhalation Q4H PRN 02/14/24 (0.083 %) solution for nebulization #90 mL albuterol sulfate 90 mcg/actuation 2 puff inhalation Q6H PRN 08/04/24 aerosol inhaler (Proventil HFA) shortness of breath or wheezing #8.5 grams mometasone-formoterol HFA 200 2 puff inhalation BID #13 grams 08/04/24 mcg-5 mcg/actuation aerosol inhaler (Dulera) tiotropium bromide 2.5 2 puff inhalation DAILY #4 grams 08/04/24 mcg/actuation mist for inhalation (Spiriva Respimat) Allergies Allergy/AdvReac Type Severity Reaction Status Date / Time bee pollen Allergy Hives Unverified 10/26/24 21:42 hazelnut Allergy Hives Unverified 10/26/24 21:42 peanut Allergy hallucinati Unverified 10/26/24 21:42 on tree nut Allergy hallucinati Unverified 10/26/24 21:42 on gabapentin AdvReac Severe vomiting Verified 10/26/24 21:42 varenicline (From Chantix) AdvReac Intermediate depression Verified 10/26/24 21:42 amoxicillin AdvReac Nausea Unverified 10/26/24 21:42 fluoxetine (From Prozac) AdvReac Nausea Unverified 10/26/24 21:42 trazodone AdvReac Weight gain Verified 10/26/24 21:42 abelox Allergy Hives Uncoded 10/26/24 21:42 General Stated Complaint: SOB ZACK: 2 Exam Narrative Exam Narrative: Review of Systems: All systems reviewed & are unremarkable except as noted in HPI and below Well-developed Smells of cigarettes NCAT Mild tachycardia no murmur Slight increased work of breathing, O2 sat 88% on room air but with deep breath comes up to 92% coarse breath sounds with expiratory wheezing diffusely Nondistended abdomen Extremities w/o edema no focal neurologic deficits Course Vital Signs Vital signs: Vital Signs Pulse 108 H 10/26/24 21:36 Respiratory Rate 22 10/26/24 21:36 Blood Pressure 158/118 H 10/26/24 21:36 Pulse Oximetry 88 L 10/26/24 21:36 Pulse 108 H 10/26/24 21:36 Respiratory Rate 22 10/26/24 21:36 Blood Pressure 158/118 H 10/26/24 21:36 Pulse Oximetry 88 L 10/26/24 21:36 Oxygen Delivery Method Room Air 10/26/24 21:36 Oxygen Flow Rate 0 10/26/24 21:36 Medical Decision Making Emergent evaluation of shortness of breath, likely secondary to COPD asthma exacerbation. Other etiologies considered such as pneumonia, viral illness, less likely heart failure or ACS. EKG reviewed and independently interpreted: Sinus tachycardia 105 normal axis no acute ischemic changes I reviewed her most recent pulmonary note. She does have chronic respiratory failure, personal oxygen dependence. He is still actively smoking. Will give steroids, continue bronchodilators. Will get chest x-ray to evaluate for consolidative process. Will get viral testing. Will check basic blood work and VBG to evaluate extent of respiratory failure. Prior echo reviewed from June 2024, EF 55%. 2009 vBG was slightly elevated CO2 consistent with chronic retention. Not significantly elevated above baseline. No indication for BiPAP 2019 On reassessment after neb treatment x 3, the patient does have improved air movement. Her sat was noted to hover around 83 to 84%, so she was placed on 1 L of supplemental oxygen. She does have oxygen at home to use as needed. She reports that she is feeling fairly tight still. Will give a dose of magnesium and an additional neb. 2049 Lab work reviewed. Mild leukocytosis, no anemia. No significant electrolyte derangement. BNP is elevated at 3960 this is lower than prior. Final disposition pending reassessment. Patient would likely benefit from outpatient steroids and antibiotics if stable for discharge. Quality:SDOH Health Related Social Needs: No Data to Display PFSH All Active Problems (Updated 09/20/24 @ 00:07 by ELLEN LEWIS) Spinal stenosis (Acute) Heart failure (Acute) Migraine (Chronic) Nicotine dependence, cigarettes, uncomplicated (Acute) Vitamin D deficiency (Acute) Tobacco abuse (Chronic) Medical History Left ventricular hypertrophy Obesity hypoventilation syndrome Schizoaffective disorder Post traumatic stress disorder Hyperlipidemia Asthma H/O suicide attempt ADHD Anxiety Bipolar disorder Non-insulin dependent diabetes mellitus Obesity (BMI 30.0-34.9) Hypertension Surgical History Status post bilateral salpingectomy S/P cholecystectomy Family History Other Adopted Social History Smoking/Tobacco Use Status: Current every day Tobacco Type: cigarettes Smoking packs per day: 0.25 Smoking cigarettes per day: 5.0 Years smoked: 40 Smoking pack-years: 10.00 Tobacco: How many years used: 40 Smoking risk assessment performed?: Yes Alcohol Intake: never Drug use: Occasionally Substance use type: marijuana Details: smokes marijuana about once per month 01/11/24 Housing: apartment Do you feel safe at home: Yes Do you feel safe in your relationship?: Yes Additional Social history: Lives with on [address] in [facility]. She is disabled with her medical and mental health conditions. 22 year old daughter in [place].
[2024-10-26] MEDS: Albuterol/Ipratropium 3 ML UPD VIAL UPD ×4 (21:47→22:30)
[2024-10-26] MEDS: methylPREDNISolone SUCC 125 MG VIAL IVP (21:49)
[2024-10-26] MEDS: predniSONE 20 MG TAB 60 MG PO (21:53)
[2024-10-26 22:05] LABS: BE (Venous) 7 mmol/L (-2-3); HCO3 (Venous) 32 mmol/L (23-28); O2 Sat (Venous) 96 %; TCO2 (Venous) 30 mmol/L (24-29); pCO2 (Venous) 58 mmHg (41-51); pH (Venous) 7.36 (7.31-7.41); pO2 (Venous) 74 mmHg
[2024-10-26 22:09] LABS: Absolute Basophil Count 0.04 10^3/uL (0.0-0.2); Absolute Eosinophil Count 0.11 10^3/uL (0.0-0.7); Absolute Lymphocyte Count 3.65 10^3/uL (1.2-3.4); Absolute Monocyte Count 0.47 10^3/uL (0.1-0.8); Absolute Neutrophil Count 8.21 10^3/uL (1.2-6.7); Basophils % 0.3 %; Eosinophils % 0.9 %; HCT 40.1 % (36.0-46.0); HGB 12.5 g/dL (11.2-15.7); Immature Grans % 1.6 %; Lymphocytes % 28.8 %; MCHC 31.2 % (32.0-36.0); MCV 93 fL (80-95); MPV 9.9 fL (8.0-11.0); Monocytes % 3.7 %; Neutrophils % 64.7 %; Platelet Count 187 10^3/uL (130-400); RBC 4.31 10^6/uL (3.93-5.22); RDW 17.3 % (11.7-14.6); RDW-SD 58.1 fL; WBC 12.69 10^3/uL (4.4-10.8)
[2024-10-26] MEDS: MAGNESIUM SULFATE 2 GM/50 ML BAG IVINF (22:37)
[2024-10-26 22:40] LABS: Anion Gap 7.4 mmol/L (3-11); BUN 7 mg/dL (7-18); CO2 32.6 mmol/L (21.0-32.0); Chloride 106 mmol/L (98-107); Estimated GFR 69.06 (mL/min/1.73m2); Glucose 306 mg/dL (74-106); NT-proBNP 3960 pg/mL (<300); Potassium 4.2 mmol/L (3.5-5.1); Sodium 146 mmol/L (136-145)
[2024-10-26 23:49] LABS: Carboxyhemoglobin 6.1 %
--- NOTE | 2024-10-27 00:12 | DI.VRAD_ITS ---
PROCEDURE INFORMATION: Exam: XR Chest Exam date and time: 10/26/2024 10:25 PM Age: 48 years old Clinical indication: Cough TECHNIQUE: Imaging protocol: Radiologic exam of the chest. Views: 1 view. COMPARISON: CR XR CHEST 2V PA LATERAL 07/01/2024 4:27 PM FINDINGS: Tubes, catheters and devices: Cardiac leads superimposed over the chest. Lungs: No alveolar infiltrate. Pleural spaces: No pleural fluid collection. No pneumothorax. Heart/Mediastinum: Normal heart size. Bones/joints: Old rib fractures. IMPRESSION: No active pulmonary disease. Dictated and Authenticated by: Junior Contreras MD. Ordering:BANDAR Trotter MD
[2024-10-27 00:21] VITALS: BP 184/74; PULSE 110; RESP 24; O2SAT 92
--- NOTE | 2024-10-27 00:25 | ED.PROG_ITS ---
Date of service: 10/27/24 Time of Service: 00:26 Medical Decision Making Patient was signed out to me by my colleague Dr. Colindres. Please refer to HPI, physical exam, assessment and plan. At time of signout we are pending chest x- ray results and reassessment. After breathing treatments magnesium and steroids patient is feeling much better. We did ambulate the patient and oxygen remained in the 90s. Resting she continues to remain in the 90s, and with 1 L of oxygen she is at 100%. At home she does use 1 to 2 L of oxygen for activity. Chest x- ray has returned negative for any evidence of pneumonia. Due to the patient's symptomatology, cough, mildly elevated white count, I do feel that she would joe efit from outpatient antibiotics out of an abundance of precaution. We will give a prescription for doxycycline with first dose here. Additionally I do feel that she would benefit from steroids. We will continue prednisone at home. She shows no signs of CHF on chest x-ray or on exam. Wheezes have improved on reassessment. Patient stable for discharge. No evidence of persistent hypoxemia. No chest pain to suggest ACS or PE. No other concerning abnormalities on assessment. I have extensively reviewed the treatment plan and discharge instructions with the patient. I have addressed all patient concerns at this time. The patient was made aware of what symptoms to monitor for that would warrant a return to the emergency department. Discussed the plan with the patient, they demonstrate verbal understanding and agreement with our assessment and plan at this time. The documentation in this chart was dictated using [employer] dictation software. Please excuse any dictation errors. FINDINGS: Tubes, catheters and devices: Cardiac leads superimposed over the chest. Lungs: No alveolar infiltrate. Pleural spaces: No pleural fluid collection. No pneumothorax. Heart/Mediastinum: Normal heart size. Bones/joints: Old rib fractures. IMPRESSION: No active pulmonary disease. Thank you for allowing us to participate in the care of your patient. Dictated and Authenticated by: Junior Contreras MD 10/27/2024 12:11 AM Eastern Time ([place] & [place]) Quality:SDOH Health Related Social Needs: No Data to Display Sign Out Sign Out Data: Sign Out Comment: 48-year-old female with history of COPD presenting with 3 days of URI symptoms Significant wheezing on exam. has received duo x4, steroids, mag CXR without large consolidation if better, would dc with steroids / abx Last updated by Jenni Colindres MD at 10/26/24 22:57 Discharge Plan Disposition Patient Disposition: Home Condition: Good Discharge Details Clinical Impression: COPD exacerbation Primary Care Provider: BRYCE SMITH ED Provider: Matty Palacio Home Meds and New Rx's Prescriptions: New prednisone 50 mg tablet 50 mg PO DAILY Qty: 5 0RF doxycycline hyclate 100 mg capsule 100 mg PO BID Qty: 14 0RF No Action (DME) Oxygen Tank See Rx Instructions .Route Qty: 1 0RF Rx Instructions: 2LPM with exertion pregabalin [Lyrica] 50 mg capsule 50 mg PO BID Patient Comments: prescribed by JAMES Jennings ipratropium-albuterol 0.5 mg-3 mg(2.5 mg base)/3 mL solution for nebulization 3 ml UPD Q4H PRN PRN (Reason: shortness of breath or wheezing) Qty: 540 12RF Jardiance 25 mg tablet 25 mg PO DAILY Dulera 200-5 mcg/actuation HFA aerosol inhaler 2 puff inhalation BID Qty: 13 12RF Rx Instructions: Rinse mouth after use Spiriva Respimat 2.5 mcg/actuation mist 2 puff inhalation DAILY Qty: 4 12RF albuterol sulfate [Proventil HFA] 90 mcg/actuation HFA aerosol inhaler 2 puff inhalation Q6H PRN (Reason: shortness of breath or wheezing) Qty: 8.5 12RF buspirone 30 mg tablet 30 mg PO BID Patient Comments: reports she is taking 60mg BID cyclobenzaprine 10 mg tablet 10 mg PO BID PRN (Reason: muscle spasm) omeprazole 20 mg capsule,delayed release(DR/EC) 20 mg PO DAILY lisinopril 20 mg Tablet 20 mg PO DAILY divalproex [Depakote] 500 mg Tablet,Delayed Release (Dr/Ec) 1,000 mg PO QHS risperidone [Risperdal] 2 mg Tablet 6 mg PO HS spironolactone 25 mg Tablet 25 mg PO DAILY Qty: 30 0RF escitalopram oxalate 20 mg tablet 20 mg PO DAILY Patient Comments: TAKE 1 TABLET BY MOUTH DAILY albuterol sulfate 2.5 mg /3 mL (0.083 %) solution for nebulization 2.5 mg inhalation Q4H PRNQty: 90 0RF Ozempic 0.25 mg or 0.5 mg (2 mg/3 mL) pen injector 0.25 mg SUBCUT .weekly Patient Comments: INJECT 0.25MG UNDER THE SKIN ONCE WEEKLY atomoxetine 40 mg capsule 40 mg PO DAILY Patient Comments: TAKE ONE CAPSULE BY MOUTH EVERY MORNING melatonin 10 mg capsule 10 mg PO HS PRN lidocaine 5 % adhesive patch,medicated 1 patch transdermal DAILY PRN Patient Comments: APPLY 1 PATCH TOPICALLY UP TO 12 HOURS AND OFF FOR 12 HOURS Trulicity 4.5 mg/0.5 mL pen injector 3 mg SUBCUT ONCE Patient Comments: INJECT 4.5MG UNDER THE SKIN ONCE WEEKLY DIRECTED prazosin 5 mg capsule 10 mg PO QHS Patient Comments: TAKE TWO CAPSULES BY MOUTH EVERY EVENING AT BEDTIME ibuprofen 800 mg tablet 800 mg PO BID PRN Patient Comments: TAKE ONE TABLET BY MOUTH TWICE A DAY NEEDED furosemide [Lasix] 20 mg tablet 20 mg PO DAILY Qty: 14 0RF Discharge Instructions Instructions: Exacerbation of COPD Additional Instructions: At this time you have evidence of a COPD exacerbation. Please take the steroid as directed. Please continue to take your inhalers at home as prescribed. Out of an abundance of caution, we will be starting you on an antibiotic to prevent any early pneumonia or worsening of your symptoms. Please take the antibiotic doxycycline as directed. If you notice any worsening of your symptoms, or any new symptoms such as vomiting, diarrhea, fever, chills, shortness of breath, chest pain, numbness, weakness, or fainting , please return immediately to the emergency department for reevaluation. Please follow up with your primary care provider as soon as possible for reassessment and reevaluation. As always, it was a pleasure participating in your medical care today. Referrals: BRYCE SMITH [employer] [Primary Care Provider] -
[2024-10-27] MEDS: Doxycycline Hyclate 100 MG CAP PO (01:22)
[2024-10-27 01:28] VITALS: PULSE 99; RESP 20; O2SAT 89
[2024-10-27 03:02] LABS: BE (Venous) 6 mmol/L (-2-3); HCO3 (Venous) 32 mmol/L (23-28); O2 Sat (Venous) 97 %; TCO2 (Venous) 30 mmol/L (24-29); pCO2 (Venous) 60 mmHg (41-51); pH (Venous) 7.33 (7.31-7.41); pO2 (Venous) 85 mmHg
[2024-10-27] MEDS: Albuterol/Ipratropium 3 ML UPD VIAL UPD (03:02)
[2024-10-27 03:06] VITALS: PULSE 91; RESP 20; O2SAT 100
[2024-10-27 05:00] VITALS: O2SAT 92
[2024-10-27 05:58] VITALS: BP 179/88; PULSE 88; RESP 14; TEMP 36.7; O2SAT 93
== END 2024-10-27 05:58 | disposition home or self-care (01) ==
PROVIDERS: Emergency Medicine; Emergency Provider Student in an Organized Health Care Education/Training Program; PCP Nurse Practitioner Family
DX: R06.02 Shortness of breath (principal); R07.9 Chest pain, unspecified; R05.9 Cough, unspecified; J44.1 Chronic obstructive pulmonary disease with (acute) exacerbation; R06.2 Wheezing; F17.210 Nicotine dependence, cigarettes, uncomplicated; Z99.81 Dependence on supplemental oxygen
CPT/HCPCS: 00123; 36415; 80048; 82375; 82805; 87426; 93005; 94640; 96365; 96375; 99285; 71045; 83880; 85025; 93010; 99284; J2919; J3475; J7512; J7620

== ENCOUNTER 2024-11-03 19:40 | Emergency (ER) | payer MEDICARE, MEDICAID, SELFPAY ==
[2024-11-03] VITALS (18 sets, daily range): BP systolic 164–222; BP diastolic 61–129; PULSE 73–98; RESP 11–25; TEMP 36.6; O2SAT 80–95
--- NOTE | 2024-11-03 19:53 | ED.GENADUL_ITS ---
Discharge Plan Disposition Patient Disposition: Home Condition: Stable Discharge Details Clinical Impression: Abdominal pain Primary Care Provider: BRYCE SMITH ED Provider: Uriah Blue Home Meds and New Rx's Prescriptions: Continued (DME) Oxygen Tank See Rx Instructions .Route Qty: 1 0RF Rx Instructions: 2LPM with exertion pregabalin [Lyrica] 50 mg capsule 50 mg PO BID Patient Comments: prescribed by JAMES Jennings ipratropium-albuterol 0.5 mg-3 mg(2.5 mg base)/3 mL solution for nebulization 3 ml UPD Q4H PRN PRN (Reason: shortness of breath or wheezing) Qty: 540 12RF Jardiance 25 mg tablet 25 mg PO DAILY Dulera 200-5 mcg/actuation HFA aerosol inhaler 2 puff inhalation BID Qty: 13 12RF Rx Instructions: Rinse mouth after use Spiriva Respimat 2.5 mcg/actuation mist 2 puff inhalation DAILY Qty: 4 12RF albuterol sulfate [Proventil HFA] 90 mcg/actuation HFA aerosol inhaler 2 puff inhalation Q6H PRN (Reason: shortness of breath or wheezing) Qty: 8.5 12RF buspirone 30 mg tablet 30 mg PO BID Patient Comments: reports she is taking 60mg BID cyclobenzaprine 10 mg tablet 10 mg PO BID PRN (Reason: muscle spasm) omeprazole 20 mg capsule,delayed release(DR/EC) 20 mg PO DAILY lisinopril 20 mg Tablet 20 mg PO DAILY divalproex [Depakote] 500 mg Tablet,Delayed Release (Dr/Ec) 1,000 mg PO QHS risperidone [Risperdal] 2 mg Tablet 6 mg PO HS spironolactone 25 mg Tablet 25 mg PO DAILY Qty: 30 0RF escitalopram oxalate 20 mg tablet 20 mg PO DAILY Patient Comments: TAKE 1 TABLET BY MOUTH DAILY albuterol sulfate 2.5 mg /3 mL (0.083 %) solution for nebulization 2.5 mg inhalation Q4H PRNQty: 90 0RF Ozempic 0.25 mg or 0.5 mg (2 mg/3 mL) pen injector 0.25 mg SUBCUT .weekly Patient Comments: INJECT 0.25MG UNDER THE SKIN ONCE WEEKLY atomoxetine 40 mg capsule 80 mg PO DAILY Patient Comments: TAKE two CAPSULE BY MOUTH EVERY MORNING melatonin 10 mg capsule 10 mg PO HS PRN lidocaine 5 % adhesive patch,medicated 1 patch transdermal DAILY PRN Patient Comments: APPLY 1 PATCH TOPICALLY UP TO 12 HOURS AND OFF FOR 12 HOURS Trulicity 4.5 mg/0.5 mL pen injector 3 mg SUBCUT ONCE Patient Comments: INJECT 4.5MG UNDER THE SKIN ONCE WEEKLY DIRECTED prazosin 5 mg capsule 10 mg PO QHS Patient Comments: TAKE TWO CAPSULES BY MOUTH EVERY EVENING AT BEDTIME ibuprofen 800 mg tablet 800 mg PO BID PRN Patient Comments: TAKE ONE TABLET BY MOUTH TWICE A DAY NEEDED furosemide [Lasix] 20 mg tablet 20 mg PO DAILY Qty: 14 0RF Discharge Instructions Additional Instructions: Your blood work and CAT scan did not show any concerning findings at this time Follow-up with your primary care provider within 1 to 2 weeks If you feel more ill, have severe worsening pain or new symptoms such as persistent vomiting return to the emergency department for reevaluation You did have evidence of constipation on your CAT scan, you can try taking a stool softener such as Colace and a laxative such as MiraLAX. HPI General Mode of arrival: EMS . Date/Time Provider Initiated Documentation: 11/03/24 19:43 . Limitations to Documentation: no limitations . Information obtained by: patient . History of Present Illness 48 year old F presents to the emergency department with the chief complaint of nausea without vomit, abdominal pain, described as moderate, Quality is described as aching, and is localized to the abdomen. Patient reports no radiation. Patient started experiencing this day(s) (2) and it has been constant. No relieving factors improve symptom(s), No exacerbating factors reported . Patient notes denies chest pain, fever/chills and shortness of breath. Patient did receive the following treatments prior to arrival, none Related Data Home Medications ?Medication ?Instructions ?Recorded ?Confirmed divalproex 500 mg tablet,delayed 1,000 mg PO QHS 01/18/20 11/03/24 release (Depakote) lisinopril 20 mg tablet 20 mg PO DAILY 01/18/20 11/03/24 risperidone 2 mg tablet (Risperdal) 6 mg PO HS 01/18/20 11/03/24 ibuprofen 800 mg tablet 800 mg PO BID PRN 11/20/22 11/03/24 Oxygen #1 ea 12/13/22 10/26/24 spironolactone 25 mg tablet 25 mg PO DAILY #30 tabs 05/06/23 11/03/24 furosemide 20 mg tablet (Lasix) 20 mg PO DAILY #14 tabs 06/13/23 11/03/24 ipratropium 0.5 mg-albuterol 3 mg 3 ml UPD Q4H PRN PRN shortness of 09/12/23 11/03/24 (2.5 mg base)/3 mL nebulization breath or wheezing #540 mL soln empagliflozin 25 mg tablet 25 mg PO DAILY 12/15/23 11/03/24 (Jardiance) buspirone 30 mg tablet 30 mg PO BID 02/09/24 11/03/24 cyclobenzaprine 10 mg tablet 10 mg PO BID PRN muscle spasm 02/09/24 11/03/24 omeprazole 20 mg capsule,delayed 20 mg PO DAILY 02/09/24 11/03/24 release escitalopram oxalate 20 mg tablet 20 mg PO DAILY 02/13/24 11/03/24 albuterol sulfate 2.5 mg/3 mL 2.5 mg (3 mL) inhalation Q4H PRN 02/14/24 11/03/24 (0.083 %) solution for nebulization #90 mL pregabalin 50 mg capsule (Lyrica) 50 mg PO BID 06/21/24 11/03/24 albuterol sulfate 90 mcg/actuation 2 puff inhalation Q6H PRN 08/04/24 11/03/24 aerosol inhaler (Proventil HFA) shortness of breath or wheezing #8.5 grams mometasone-formoterol HFA 200 2 puff inhalation BID #13 grams 08/04/24 11/03/24 mcg-5 mcg/actuation aerosol inhaler (Dulera) tiotropium bromide 2.5 2 puff inhalation DAILY #4 grams 08/04/24 10/26/24 mcg/actuation mist for inhalation (Spiriva Respimat) atomoxetine 40 mg capsule 80 mg PO DAILY 08/19/24 11/03/24 dulaglutide 4.5 mg/0.5 mL 3 mg subcut ONCE 08/19/24 11/03/24 subcutaneous pen injector (Trulicity) lidocaine 5 % topical patch 1 patch transdermal DAILY PRN 08/19/24 11/03/24 melatonin 10 mg capsule 10 mg PO HS PRN 08/19/24 11/03/24 semaglutide 0.25 mg or 0.5 mg (2 0.25 mg subcut .weekly 08/19/24 11/03/24 mg/3 mL) subcutaneous pen injector (Ozempic) prazosin 5 mg capsule 10 mg PO QHS 08/20/24 11/03/24 Previous Rx's ?Medication ?Instructions ?Recorded Oxygen #1 ea 12/13/22 spironolactone 25 mg tablet 25 mg PO DAILY #30 tabs 05/06/23 furosemide 20 mg tablet (Lasix) 20 mg PO DAILY #14 tabs 06/13/23 ipratropium 0.5 mg-albuterol 3 mg 3 ml UPD Q4H PRN PRN shortness of 09/12/23 (2.5 mg base)/3 mL nebulization breath or wheezing #540 mL soln albuterol sulfate 2.5 mg/3 mL 2.5 mg (3 mL) inhalation Q4H PRN 02/14/24 (0.083 %) solution for nebulization #90 mL albuterol sulfate 90 mcg/actuation 2 puff inhalation Q6H PRN 08/04/24 aerosol inhaler (Proventil HFA) shortness of breath or wheezing #8.5 grams mometasone-formoterol HFA 200 2 puff inhalation BID #13 grams 08/04/24 mcg-5 mcg/actuation aerosol inhaler (Dulera) tiotropium bromide 2.5 2 puff inhalation DAILY #4 grams 08/04/24 mcg/actuation mist for inhalation (Spiriva Respimat) Allergies Allergy/AdvReac Type Severity Reaction Status Date / Time bee pollen Allergy Hives Verified 11/03/24 19:47 hazelnut Allergy Hives Verified 11/03/24 19:47 peanut Allergy hallucinati Verified 11/03/24 19:47 on tree nut Allergy hallucinati Verified 11/03/24 19:47 on gabapentin AdvReac Severe vomiting Verified 11/03/24 19:47 varenicline (From Chantix) AdvReac Intermediate depression Verified 11/03/24 19:47 amoxicillin AdvReac Nausea Verified 11/03/24 19:47 fluoxetine (From Prozac) AdvReac Nausea Verified 11/03/24 19:47 trazodone AdvReac Weight gain Verified 11/03/24 19:47 abelox Allergy Hives Uncoded 11/03/24 19:47 General ZACK: 2 Review of Systems All systems reviewed & are unremarkable except as noted in HPI and below Constitutional Constitutional: Denies chills, Denies fever(s) and Denies weakness Cardiovascular Cardiovascular: Denies chest pain and Denies dyspnea Respiratory Respiratory: Denies cough and Denies dyspnea Gastrointestinal Gastrointestinal: Reports abdominal pain, Reports nausea and Reports vomiting Neurologic Neurologic: Denies weakness Exam Const General: no acute distress Orientation: alert HENMT Head: normal to inspection Ears: external ears normal General nose exam: external nose normal Mouth: moist mucous membranes Eyes General: appearance normal, both eyes and all related structures Neck Neck: normal visual inspection Resp Effort & Inspection: normal respiratory effort and able to speak in complete sentences Cardio Rate: regular rate GI Palpation: soft, not firm, no guarding and tender Skin General skin exam: no rashes or lesions noted Neuro General: patient alert and patient oriented x3 Extrem General: normal to inspection Psych Mental Status: mental status grossly normal Medical Decision Making 48-year-old female with a history of bipolar, asthma, hypertension, diabetes who was recently seen for respiratory illness last week, comes in with several days of nausea without vomiting along with mid to left mid upper abdominal pain. Denies any fevers, chest pain, difficulty breathing, vaginal bleeding or discharge. Abdomen is soft, she has tenderness in the mid and left side of her abdomen about the left upper and lower quadrants. There are no peritoneal findings. Given her complaints we will proceed with CBC, CMP, lipase and CT abdomen pelvis to evaluate for entities such as bowel obstruction versus diver ticulitis Patient's labs and imaging showed no significant abnormalities. There is a question of gastroesophagitis, Differential Diagnosis Differential Diagnosis: Bowel obstruction, pancreatitis, medication side effect. Medical Records Medical records reviewed: Yes I reviewed the patient's medical records. Lab Data Lab results reviewed: Yes I reviewed the patient's lab results. Quality:SDOH Health Related Social Needs: No Data to Display PFSH All Active Problems (Updated 11/03/24 @ 22:15 by Uriah Blue MD) Abdominal pain (Acute) COPD exacerbation (Acute) Spinal stenosis (Acute) Heart failure (Acute) Migraine (Chronic) Nicotine dependence, cigarettes, uncomplicated (Acute) Vitamin D deficiency (Acute) Tobacco abuse (Chronic) Medical History Left ventricular hypertrophy Obesity hypoventilation syndrome Schizoaffective disorder Post traumatic stress disorder Hyperlipidemia Asthma H/O suicide attempt ADHD Anxiety Bipolar disorder Non-insulin dependent diabetes mellitus Obesity (BMI 30.0-34.9) Hypertension Surgical History Status post bilateral salpingectomy S/P cholecystectomy Family History Other Adopted Social History Smoking/Tobacco Use Status: Current every day Tobacco Type: cigarettes Smoking packs per day: 0.25 Smoking cigarettes per day: 5.0 Years smoked: 40 Smoking pack-years: 10.00 Tobacco: How many years used: 40 Smoking risk assessment performed?: Yes Alcohol Intake: never Drug use: Occasionally Substance use type: marijuana Details: smokes marijuana about once per month 01/11/24 Housing: apartment Do you feel safe at home: Yes Do you feel safe in your relationship?: Yes Additional Social history: Lives with on [address] in [facility]. She is disabled with her medical and mental health conditions. 22 year old daughter in [place].
[2024-11-03] MEDS: Droperidol 5 MG/2 ML VIAL 2.5 MG IVP (20:02)
[2024-11-03] MEDS: Ketorolac 15 MG/ML VIAL IVP (20:03)
[2024-11-03 20:04] LABS: BE (Venous) 15 mmol/L (-2-3); HCO3 (Venous) 39 mmol/L (23-28); TCO2 (Venous) 35 mmol/L (24-29); pCO2 (Venous) 55 mmHg (41-51); pH (Venous) 7.45 (7.31-7.41); pO2 (Venous) 54 mmHg
[2024-11-03 20:05] LABS: O2 Sat (Venous) 91 %
[2024-11-03 20:06] LABS: HGB 12.9 g/dL (11.2-15.7); RBC 4.52 10^6/uL (3.93-5.22); WBC 9.58 10^3/uL (4.4-10.8)
[2024-11-03 20:07] LABS: Absolute Basophil Count 0.03 10^3/uL (0.0-0.2); Absolute Eosinophil Count 0.07 10^3/uL (0.0-0.7); Absolute Lymphocyte Count 3.58 10^3/uL (1.2-3.4); Absolute Monocyte Count 0.57 10^3/uL (0.1-0.8); Basophils % 0.3 %; Eosinophils % 0.7 %; HCT 40.9 % (36.0-46.0); Immature Grans % 0.5 %; Lymphocytes % 37.4 %; MCH 28.5 pg (27.0-33.0); MCHC 31.5 % (32.0-36.0); MCV 91 fL (80-95); Monocytes % 5.9 %; Neutrophils % 55.2 %; Platelet Count 192 10^3/uL (130-400); RDW 18.1 % (11.7-14.6); RDW-SD 58.6 fL
[2024-11-03 20:08] LABS: Absolute Neutrophil Count 5.28 10^3/uL (1.2-6.7)
[2024-11-03 20:22] LABS: VALPROIC ACID 46.2 ug/mL
[2024-11-03 20:23] LABS: BUN 9 mg/dL (7-18); Estimated GFR 69.06 (mL/min/1.73m2); Glucose 264 mg/dL (74-106)
[2024-11-03 20:24] LABS: ALT 13 U/L (14-59); AST 13 U/L (15-37); Albumin 2.4 g/dL (3.4-5.0); Alkaline Phosphatase 96 U/L (46-116); Anion Gap 3.5 mmol/L (3-11); Bilirubin, Total 0.22 mg/dL (0.2-1.0); CO2 37.5 mmol/L (21.0-32.0); Chloride 102 mmol/L (98-107); Potassium 3.7 mmol/L (3.5-5.1); Sodium 143 mmol/L (136-145); Total Protein 6.3 g/dL (6.4-8.2)
[2024-11-03 20:25] LABS: Bilirubin, Direct 0.1 mg/dL (0.0-0.2); Lipase 15 U/L (<78); Magnesium 1.8 mg/dL (1.8-2.4)
[2024-11-03] MEDS: Omnipaque 350 MG/ML 100 ML BTL IJ (20:31)
[2024-11-03] MEDS: Normal Saline - Diluent 50 ML VIAL IJ (20:33)
--- NOTE | 2024-11-03 20:35 | DI.CT_ITS ---
Exam(s) CT ABDOMEN PELVIS W EXAM: CT ABDOMEN PELVIS W CLINICAL HISTORY: nausea, mid to upper abdominal pain. TECHNIQUE: Imaging Protocol: Axial computed tomography images with coronal and sagittal reformatted images were created and reviewed CONTRAST MATERIAL: Intravenous: Omnipaque-350 100cc Oral: None COMPARISON: CT CT CHEST PE CTA from 11/05/2022 FINDINGS: VISUALIZED LUNG BASES: No nodules nor pleural effusions evident. ABDOMEN: There is no ascites. LIVER: There are no focal hepatic lesions evident. No dilated intrahepatic ducts. GALLBLADDER/BILIARY: Is surgically absent. The biliary tree is not dilated. CBD is not dilated. PANCREAS: No evidence of pancreatic mass nor dilatation of the pancreatic duct. SPLEEN: Spleen is not enlarged. No obvious intrasplenic lesions. Splenic and portal veins are paten t. ADRENALS: There are no significant adrenal masses. KIDNEYS:No cysts evident. No solid renal masses. No calculi nor hydronephrosis.. ABDOMINAL AORTA: Abdominal aorta is not enlarged. LYMPH NODES:There is no retroperitoneal nor paraaortic adenopathy. ABDOMINAL WALL: No evidence of significant anterior abdominal wall nor inguinal hernia. However, the re is significant skin thickening over the lower anterior abdominal wall and pannus consistent with p robable cellulitis. There is no drainable fluid collection nor gas within the subcutaneous fat layer . GI: There is no evidence of bowel obstruction, free air, nor abscess. PELVIS: GI: No evidence of appendicitis.No evidence of sigmoid diverticulitis. LYMPH NODES: There is no intrapelvic nor inguinal adenopathy. REPRODUCTIVE: Uterus and adnexal regions unremarkable. URINARY BLADDER: No calculi nor obvious masses evident OSSEOUS: No fractures and no significant osseous lesions. IMPRESSION: 1. There is anterior abdominal wall skin thickening above and below the umbilicus consistent with brian lulitis pattern. There is no drainable subcutaneous fluid collection and there is no gas in subcutan eous fat. 2. Gallbladder surgically absent. The biliary tree is not dilated. 3. No other significant findings in the abdomen and pelvis. RADIATION DOSE DELIVERED: 839.96mGy.cm Total DLP DATA REPOSITORY: All CT scans at this facility are submitted to the National Radiology Data Registry (NRDR) Dose Index Registry (DIR) with the [employer] (ACR). RADIATION OPTIMIZATION: All CT scans at this facility use at least one of these dose optimization te chniques: automated exposure control; mA and/or kV adjustment per patient size (includes targeted exa ms where dose is matched to clinical indication); or iterative reconstruction.
[2024-11-03] MEDS: HYDROmorphone 2 MG/ML SYR 1 MG IVP (20:56)
[2024-11-03 21:01] LABS: Clarity Clear (Clear); Glucose 500 mg/dL (Negative); Leukocyte Esterase Negative (Negative); Nitrite Negative (Negative); Specific Gravity >= 1.030 (1.005-1.025)
[2024-11-03 21:02] LABS: Bacteria Negative HPF (Negative); Bilirubin Small (Negative); Blood Moderate (Negative); C & S Indicated? No; Casts 3-5 Hyaline LPF (Negative); Crystals Negative HPF (Negative); Epithelial Cells Many HPF (Negative); Ketones Trace mg/dL (Negative); Mucus Moderate (Negative); RBC 20-50 HPF (0-2); WBC 0-2 HPF (0-5)
--- NOTE | 2024-11-03 22:06 | DI.VRAD_ITS ---
PROCEDURE INFORMATION: Exam: CT Abdomen And Pelvis With Contrast Exam date and time: 11/03/2024 8:29 PM Age: 48 years old Clinical indication: Patient HX: Nausea, mid to upper abdominal pain TECHNIQUE: Imaging protocol: Computed tomography of the abdomen and pelvis with contrast. Radiation optimization: All CT scans at this facility use at least one of these dose optimization techniques: automated exposure control; mA and/or kV adjustment per patient size (includes targeted exams where dose is matched to clinical indication); or iterative reconstruction. Contrast material: [id number]; Contrast volume: 100 ml; Contrast route: INTRAVENOUS (IV); COMPARISON: MR LUMBAR SPINE WO 02/05/2024 9:22 AM FINDINGS: Lungs: The imaged lung bases are clear. Pleural spaces: No pleural effusion. Heart: The heart is to moderately enlarged. No pericardial effusion. Liver: The liver is mild to moderately enlarged and has a slightly lobulated contour suggesting chronic liver disease. Gallbladder and biliary ducts: The gallbladder is surgically absent. No bile duct dilatation. Pancreas: The pancreas is normal in appearance. No pancreatic ductal dilatation. Spleen: The spleen is upper limits of normal in size. Adrenal glands: The bilateral adrenal glands are normal appearance. Kidneys and ureters: The bilateral kidneys are normal in appearance. No hydroureteronephrosis. Stomach and bowel: Mild circumferential wall thickening within the distal esophagus extending into the gastroesophageal junction. Possible patchy wall thickening within the gastric folds. Fecalization in the mid and distal small bowel. The small bowel is otherwise normal in appearance. A small amount of stool and air is seen throughout the colon. No bowel obstruction. A 12 mm periampullary duodenal diverticulum is seen. Appendix: The appendix is normal in appearance. Intraperitoneal space: No free fluid, free air or abscess. Vasculature: Mild to moderate calcified atherosclerotic plaque throughout the abdominal aorta and iliac vessels without aneurysm. Lymph nodes: No lymphadenopathy within the abdomen and pelvis. Urinary bladder: The urinary bladder is normal in appearance. The urinary bladder is normal in appearance. Reproductive: The uterus is normal in appearance. No adnexal mass. Bones/joints: No acute osseous abnormality. Soft tissues: [id number] skin thickening is seen within the ventral pelvic wall/pannus. Skin thickening and subcutaneous stranding is also seen along the midline of the abdomen. No soft tissue abscess or mature drainable fluid collection. Mild subcutaneous edema is seen posteriorly along the lumbar spine and buttock. IMPRESSION: 1. No evidence for an acute process within the abdomen and pelvis. 2. Probable mild gastroesophagitis. Constipation without bowel obstruction. 3. Skin thickening within ventral abdominal and pelvic wall and pannus, which may represent lymphedema. Cellulitis could also give this appearance in the correct clinical context. No drainable fluid collection or abscess. 4. Hepatomegaly. Cholecystectomy. Dictated and Authenticated by: Demi Martin MD. Ordering:YOLANDA Kruse MD
== END 2024-11-03 22:39 | disposition home or self-care (01) ==
PROVIDERS: Emergency Provider Emergency Medicine; PCP Nurse Practitioner Family
DX: R10.13 Epigastric pain (principal); R11.0 Nausea; I10 Essential (primary) hypertension; E78.5 Hyperlipidemia, unspecified; E11.9 Type 2 diabetes mellitus without complications; Z90.49 Acquired absence of other specified parts of digestive tract; Z79.84 Long term (current) use of oral hypoglycemic drugs; Z79.85 Long-term (current) use of injectable non-insulin antidiabetic drugs; F17.210 Nicotine dependence, cigarettes, uncomplicated
CPT/HCPCS: 80053; 81025; 82805; 83690; 96374; 96375; 99285; 74177; 80164; 81003; 81015; 82248; 83735; 85025; J1171; J1790; J1885; J3490

== ENCOUNTER 2024-11-04 19:29 | Emergency (ER) | payer MEDICARE, MEDICAID, SELFPAY ==
[2024-11-04] VITALS (15 sets, daily range): BP systolic 182–186; BP diastolic 76–82; PULSE 80–90; RESP 18–20; TEMP 36.1–36.8; O2SAT 92–100
--- NOTE | 2024-11-04 19:15 | DI.CT_ITS ---
Exam(s) CT ABDOMEN PELVIS CTA EXAM: CT ABDOMEN PELVIS CTA CLINICAL HISTORY: worsening abdominal pain, ?mesenteric ischemia. TECHNIQUE: Imaging Protocol: Axial computed tomography images with coronal and sagittal reformatted images were created and reviewed CONTRAST MATERIAL: Intravenous: Omnipaque 350 Contrast volume:100 ml Oral: None COMPARISON: CT CT ABDOMEN PELVIS W from 11/03/2024 FINDINGS: AORTA: There is mild-moderate atherosclerotic involvement of the distal half of the abdominal aorta but no e vidence of significant abdominal aortic aneurysm no evidence of dissection. No significant stenosis at the aortic bifurcation and no significant findings in the common and external iliac arteries. Int ernal iliac arteries also appear unremarkable. Celiac and superior mesenteric arteries are patent with no stenosis. No intraluminal filling defects to suggest intraluminal emboli. The inferior mesenteric artery is also patent. There are no abnorm al enlarged meandering vessels in the mesentery to suggest collateralization. Both renal arteries are patent without significant stenosis. ABDOMEN: There is no ascites. LIVER: There are no focal hepatic lesions nor dilatation of intrahepatic ducts. GALLBLADDER/BILIARY: Gallbladder is again noted be surgically absent. CBD is not dilated. PANCREAS: No evidence of pancreatic mass nor dilatation of the pancreatic duct. SPLEEN: Spleen is not enlarged. There are no intrasplenic lesions. ADRENALS: There are no significant adrenal masses. KIDNEYS: No cysts evident. No calculi nor hydronephrosis. No solid renal masses. ABDOMINAL AORTA: See above LYMPH NODES: There is no retroperitoneal nor para-aortic adenopathy. No obvious mesenteric masses. ABDOMINAL WALL: No evidence of significant anterior abdominal wall hernia. The previously described anterior abdominal wall skin thickening both above and below the umbilicus is again noted with subcut aneous streaking again noted, unchanged from 2 days ago. There is no drainable subcutaneous fluid co llection. GI: There is no evidence of bowel obstruction, free air, nor abscess. PELVIS: LYMPH NODES: There is no intrapelvic nor inguinal adenopathy. GI: No evidence of appendicitis.No evidence of sigmoid diverticulitis. URINARY BLADDER: No calculi nor masses evident REPRODUCTIVE: Uterus and adnexal regions unremarkable. No free fluid in the pelvis. OSSEOUS: No significant osseous lesions. No fractures. No listhesis. IMPRESSION: 1. All mesenteric vessels are patent with no evidence of significant stenosis nor intraluminal emboli . There also no prominent meandering vessels in mesentery to suggest collateralization. There are n o ischemic appearing bowel loops and there is no ascites. 2. Gallbladder is again noted be surgically absent. The biliary tree is not dilated. 3. Again noted is abnormal skin thickening over the anterior abdominal wall both above the umbilicus and below the umbilicus within the pannus. Probable cellulitis. There is subcutaneous streaking but there is no distinct fluid collection in the subcutaneous fat. RADIATION DOSE DELIVERED: 394.87mGy.cm Total DLP DATA REPOSITORY: All CT scans at this facility are submitted to the National Radiology Data Registry (NRDR) Dose Index Registry (DIR) with the [employer] (ACR). RADIATION OPTIMIZATION: All CT scans at this facility use at least one of these dose optimization te chniques: automated exposure control; mA and/or kV adjustment per patient size (includes targeted exa ms where dose is matched to clinical indication); or iterative reconstruction.
--- NOTE | 2024-11-04 19:38 | ED.GENADUL_ITS ---
Discharge Plan Disposition Patient Disposition: Home Condition: Stable Discharge Details Clinical Impression: Abdominal pain Primary Care Provider: BRYCE SMITH ED Provider: Uriah Blue Home Meds and New Rx's Prescriptions: New ondansetron 4 mg tablet,disintegrating 4 mg PO Q8H PRN (Reason: nausea and vomiting) Qty: 30 0RF Continued (DME) Oxygen Tank See Rx Instructions .Route Qty: 1 0RF Rx Instructions: 2LPM with exertion pregabalin [Lyrica] 50 mg capsule 50 mg PO BID Patient Comments: prescribed by Bryce Smith, PCP ipratropium-albuterol 0.5 mg-3 mg(2.5 mg base)/3 mL solution for nebulization 3 ml UPD Q4H PRN PRN (Reason: shortness of breath or wheezing) Qty: 540 12RF Jardiance 25 mg tablet 25 mg PO DAILY Dulera 200-5 mcg/actuation HFA aerosol inhaler 2 puff inhalation BID Qty: 13 12RF Rx Instructions: Rinse mouth after use Spiriva Respimat 2.5 mcg/actuation mist 2 puff inhalation DAILY Qty: 4 12RF albuterol sulfate [Proventil HFA] 90 mcg/actuation HFA aerosol inhaler 2 puff inhalation Q6H PRN (Reason: shortness of breath or wheezing) Qty: 8.5 12RF buspirone 30 mg tablet 30 mg PO BID Patient Comments: reports she is taking 60mg BID cyclobenzaprine 10 mg tablet 10 mg PO BID PRN (Reason: muscle spasm) omeprazole 20 mg capsule,delayed release(DR/EC) 20 mg PO DAILY lisinopril 20 mg Tablet 20 mg PO DAILY divalproex [Depakote] 500 mg Tablet,Delayed Release (Dr/Ec) 1,000 mg PO QHS risperidone [Risperdal] 2 mg Tablet 6 mg PO HS spironolactone 25 mg Tablet 25 mg PO DAILY Qty: 30 0RF escitalopram oxalate 20 mg tablet 20 mg PO DAILY Patient Comments: TAKE 1 TABLET BY MOUTH DAILY albuterol sulfate 2.5 mg /3 mL (0.083 %) solution for nebulization 2.5 mg inhalation Q4H PRNQty: 90 0RF Ozempic 0.25 mg or 0.5 mg (2 mg/3 mL) pen injector 0.25 mg SUBCUT .weekly Patient Comments: INJECT 0.25MG UNDER THE SKIN ONCE WEEKLY atomoxetine 40 mg capsule 80 mg PO DAILY Patient Comments: TAKE two CAPSULE BY MOUTH EVERY MORNING melatonin 10 mg capsule 10 mg PO HS PRN lidocaine 5 % adhesive patch,medicated 1 patch transdermal DAILY PRN Patient Comments: APPLY 1 PATCH TOPICALLY UP TO 12 HOURS AND OFF FOR 12 HOURS Trulicity 4.5 mg/0.5 mL pen injector 3 mg SUBCUT ONCE Patient Comments: INJECT 4.5MG UNDER THE SKIN ONCE WEEKLY DIRECTED prazosin 5 mg capsule 10 mg PO QHS Patient Comments: TAKE TWO CAPSULES BY MOUTH EVERY EVENING AT BEDTIME ibuprofen 800 mg tablet 800 mg PO BID PRN Patient Comments: TAKE ONE TABLET BY MOUTH TWICE A DAY NEEDED furosemide [Lasix] 20 mg tablet 20 mg PO DAILY Qty: 14 0RF Discharge Instructions Additional Instructions: Your blood work and CAT scan did not show any concerning findings again. Follow-up with your primary care provider within 1 week If you feel more ill or new symptoms such as high fevers and persistent vomiting return to the emergency department for reevaluation. HPI General Mode of arrival: EMS . Date/Time Provider Initiated Documentation: 11/04/24 19:33 . Limitations to Documentation: no limitations . Information obtained by: patient . History of Present Illness 48 year old F presents to the emergency department with the chief complaint of Abd pain, n/v, described as moderate, Quality is described as aching, and is localized to the abdomen. Patient reports no radiation. Patient started experiencing this day(s) (2) and it has been constant. No relieving factors improve symptom(s), No exacerbating factors reported . Patient notes denies chest pain, fever/chills and shortness of breath. Related Data Home Medications ?Medication ?Instructions ?Recorded ?Confirmed divalproex 500 mg tablet,delayed 1,000 mg PO QHS 01/18/20 11/04/24 release (Depakote) lisinopril 20 mg tablet 20 mg PO DAILY 01/18/20 11/04/24 risperidone 2 mg tablet (Risperdal) 6 mg PO HS 01/18/20 11/04/24 ibuprofen 800 mg tablet 800 mg PO BID PRN 11/20/22 11/04/24 Oxygen #1 ea 12/13/22 11/04/24 spironolactone 25 mg tablet 25 mg PO DAILY #30 tabs 05/06/23 11/04/24 furosemide 20 mg tablet (Lasix) 20 mg PO DAILY #14 tabs 06/13/23 11/04/24 ipratropium 0.5 mg-albuterol 3 mg 3 ml UPD Q4H PRN PRN shortness of 09/12/23 11/04/24 (2.5 mg base)/3 mL nebulization breath or wheezing #540 mL soln empagliflozin 25 mg tablet 25 mg PO DAILY 12/15/23 11/04/24 (Jardiance) buspirone 30 mg tablet 30 mg PO BID 02/09/24 11/04/24 cyclobenzaprine 10 mg tablet 10 mg PO BID PRN muscle spasm 02/09/24 11/04/24 omeprazole 20 mg capsule,delayed 20 mg PO DAILY 02/09/24 11/04/24 release escitalopram oxalate 20 mg tablet 20 mg PO DAILY 02/13/24 11/04/24 albuterol sulfate 2.5 mg/3 mL 2.5 mg (3 mL) inhalation Q4H PRN 02/14/24 11/04/24 (0.083 %) solution for nebulization #90 mL pregabalin 50 mg capsule (Lyrica) 50 mg PO BID 06/21/24 11/04/24 albuterol sulfate 90 mcg/actuation 2 puff inhalation Q6H PRN 08/04/24 11/04/24 aerosol inhaler (Proventil HFA) shortness of breath or wheezing #8.5 grams mometasone-formoterol HFA 200 2 puff inhalation BID #13 grams 08/04/24 11/04/24 mcg-5 mcg/actuation aerosol inhaler (Dulera) tiotropium bromide 2.5 2 puff inhalation DAILY #4 grams 08/04/24 11/04/24 mcg/actuation mist for inhalation (Spiriva Respimat) atomoxetine 40 mg capsule 80 mg PO DAILY 08/19/24 11/04/24 dulaglutide 4.5 mg/0.5 mL 3 mg subcut ONCE 08/19/24 11/04/24 subcutaneous pen injector (Trulicity) lidocaine 5 % topical patch 1 patch transdermal DAILY PRN 08/19/24 11/04/24 melatonin 10 mg capsule 10 mg PO HS PRN 08/19/24 11/04/24 semaglutide 0.25 mg or 0.5 mg (2 0.25 mg subcut .weekly 08/19/24 11/04/24 mg/3 mL) subcutaneous pen injector (Ozempic) prazosin 5 mg capsule 10 mg PO QHS 08/20/24 11/04/24 ondansetron 4 mg disintegrating 4 mg PO Q8H PRN nausea and 11/04/24 tablet vomiting #30 tabs Previous Rx's ?Medication ?Instructions ?Recorded Oxygen #1 ea 12/13/22 spironolactone 25 mg tablet 25 mg PO DAILY #30 tabs 05/06/23 furosemide 20 mg tablet (Lasix) 20 mg PO DAILY #14 tabs 06/13/23 ipratropium 0.5 mg-albuterol 3 mg 3 ml UPD Q4H PRN PRN shortness of 09/12/23 (2.5 mg base)/3 mL nebulization breath or wheezing #540 mL soln albuterol sulfate 2.5 mg/3 mL 2.5 mg (3 mL) inhalation Q4H PRN 02/14/24 (0.083 %) solution for nebulization #90 mL albuterol sulfate 90 mcg/actuation 2 puff inhalation Q6H PRN 08/04/24 aerosol inhaler (Proventil HFA) shortness of breath or wheezing #8.5 grams mometasone-formoterol HFA 200 2 puff inhalation BID #13 grams 08/04/24 mcg-5 mcg/actuation aerosol inhaler (Dulera) tiotropium bromide 2.5 2 puff inhalation DAILY #4 grams 08/04/24 mcg/actuation mist for inhalation (Spiriva Respimat) ondansetron 4 mg disintegrating 4 mg PO Q8H PRN nausea and 11/04/24 tablet vomiting #30 tabs Allergies Allergy/AdvReac Type Severity Reaction Status Date / Time bee pollen Allergy Hives Verified 11/04/24 19:29 hazelnut Allergy Hives Verified 11/04/24 19:29 peanut Allergy hallucinati Verified 11/04/24 19:29 on tree nut Allergy hallucinati Verified 11/04/24 19:29 on gabapentin AdvReac Severe vomiting Verified 11/04/24 19:29 varenicline (From Chantix) AdvReac Intermediate depression Verified 11/04/24 19:29 amoxicillin AdvReac Nausea Verified 11/04/24 19:29 fluoxetine (From Prozac) AdvReac Nausea Verified 11/04/24 19:29 trazodone AdvReac Weight gain Verified 11/04/24 19:29 abelox Allergy Hives Uncoded 11/04/24 19:29 General Stated Complaint: Abd Prob ZACK: 3 Review of Systems All systems reviewed & are unremarkable except as noted in HPI and below Constitutional Constitutional: Denies chills, Denies fever(s) and Denies weakness Cardiovascular Cardiovascular: Denies chest pain and Denies dyspnea Respiratory Respiratory: Denies cough and Denies dyspnea Gastrointestinal Gastrointestinal: Reports abdominal pain, Reports nausea and Reports vomiting Genitourinary Genitourinary: Denies dysuria Integumentary/Breasts Skin/Breast: Denies rash Neurologic Neurologic: Denies weakness Exam Const General: no acute distress Orientation: alert HENME Head: normal to inspection Ears: external ears normal General nose exam: external nose normal Mouth: moist mucous membranes Eyes General: appearance normal, both eyes and all related structures Neck Neck: normal visual inspection Resp Effort & Inspection: normal respiratory effort and able to speak in complete sentences Cardio Rate: regular rate GI Palpation: soft, not firm, no guarding and tender Skin General skin exam: no rashes or lesions noted Neuro General: patient alert and patient oriented x3 Extrem General: normal to inspection Psych Mental Status: mental status grossly normal Course Vital Signs Vital signs: Vital Signs Temperature 36.1 C L 11/04/24 19:24 Pulse 84 11/04/24 19:24 Respiratory Rate 20 11/04/24 19:24 Blood Pressure 186/76 H 11/04/24 19:24 Pulse Oximetry 92 11/04/24 19:24 Temperature 36.1 C L 11/04/24 19:24 Pulse 84 11/04/24 19:24 Respiratory Rate 20 11/04/24 19:24 Respiratory Effort Normal 11/04/24 19:30 Blood Pressure 186/76 H 11/04/24 19:24 Pulse Oximetry 92 11/04/24 19:24 Oxygen Delivery Method Room Air 11/04/24 19:24 Oxygen Flow Rate 0 11/04/24 19:24 Pain Level 10 11/04/24 19:24 Medical Decision Making 48-year-old female with a history of bipolar, COPD, migraines, who comes in with continued abdominal pain and nausea vomiting and diarrhea since yesterday. Was seen yesterday and had lab work and imaging which showed no significant findings. She is continue to have symptoms today so came here for reevaluation. She denies any chest pain or difficulty breathing. Her abdomen is soft, nondistended. She has tenderness in the mid and lower left abdomen. Given the continued pain we will recheck CBC, CMP and lipase and also obtain a CTA to evaluate for possible mesenteric ischemia along with a lactate. imaging unremarkable, has continued panniculitis which is likely chronic, she has no pain in this area and there is no surrounding erythema on the skin so doubt infectious or need for antibiotics, she was advised to discuss this with her pcp when she follows up with them. She is sleeping on reassessment and awakens easily to voice and feels better. Given reassuring workup feel she is stable for discharge and follow-up with her PCP, return precautions given Differential Diagnosis Differential Diagnosis: Gastroenteritis, colitis, mesenteric ischemia Quality:SDOH Health Related Social Needs: No Data to Display PFSH All Active Problems (Updated 11/04/24 @ 21:23 by Uriah Blue MD) Abdominal pain (Acute) Abdominal pain (Acute) COPD exacerbation (Acute) Spinal stenosis (Acute) Heart failure (Acute) Migraine (Chronic) Nicotine dependence, cigarettes, uncomplicated (Acute) Vitamin D deficiency (Acute) Tobacco abuse (Chronic) Medical History Left ventricular hypertrophy Obesity hypoventilation syndrome Schizoaffective disorder Post traumatic stress disorder Hyperlipidemia Asthma H/O suicide attempt ADHD Anxiety Bipolar disorder Non-insulin dependent diabetes mellitus Obesity (BMI 30.0-34.9) Hypertension Surgical History Status post bilateral salpingectomy S/P cholecystectomy Family History Other Adopted Social History Smoking/Tobacco Use Status: Current every day Tobacco Type: cigarettes Smoking packs per day: 0.25 Smoking cigarettes per day: 5.0 Years smoked: 40 Smoking pack-years: 10.00 Tobacco: How many years used: 40 Smoking risk assessment performed?: Yes Alcohol Intake: never Drug use: Occasionally Substance use type: marijuana Details: smokes marijuana about once per month 01/11/24 Housing: apartment Do you feel safe at home: Yes Do you feel safe in your relationship?: Yes Additional Social history: Lives with on [address] in [facility]. She is disabled with her medical and mental health conditions. 22 year old daughter in [place].
[2024-11-04] MEDS: Omnipaque 350 MG/ML 100 ML BTL IJ (19:41)
[2024-11-04] MEDS: Normal Saline - Diluent 50 ML VIAL IJ (19:41)
[2024-11-04] MEDS: Ketorolac 15 MG/ML VIAL IVP (19:47)
[2024-11-04] MEDS: Droperidol 5 MG/2 ML VIAL 2.5 MG IVP (19:47)
[2024-11-04 19:55] LABS: Abs Immature Grans 0.04 10^3/uL (0.0-0.06); Absolute Basophil Count 0.03 10^3/uL (0.0-0.2); Absolute Eosinophil Count 0.07 10^3/uL (0.0-0.7); Absolute Lymphocyte Count 2.97 10^3/uL (1.2-3.4); Absolute Monocyte Count 0.46 10^3/uL (0.1-0.8); Absolute Neutrophil Count 4.94 10^3/uL (1.2-6.7); BE (Venous) 14 mmol/L (-2-3); Basophils % 0.4 %; Eosinophils % 0.8 %; HCO3 (Venous) 38 mmol/L (23-28); HCT 42.6 % (36.0-46.0); HGB 13.4 g/dL (11.2-15.7); Immature Grans % 0.5 %; Lymphocytes % 34.9 %; MCH 28.4 pg (27.0-33.0); MCHC 31.5 % (32.0-36.0); MCV 90 fL (80-95); MPV 9.8 fL (8.0-11.0); Monocytes % 5.4 %; O2 Sat (Venous) 63 %; Platelet Count 188 10^3/uL (130-400); RBC 4.72 10^6/uL (3.93-5.22); RDW 17.9 % (11.7-14.6); RDW-SD 58.3 fL; TCO2 (Venous) 34 mmol/L (24-29); WBC 8.51 10^3/uL (4.4-10.8); pCO2 (Venous) 55 mmHg (41-51); pH (Venous) 7.45 (7.31-7.41); pO2 (Venous) 31 mmHg
[2024-11-04 19:56] LABS: Lactate 1.3 mmol/L (0.6-1.4)
[2024-11-04 20:14] LABS: ALT 15 U/L (14-59); AST 26 U/L (15-37); Albumin 2.7 g/dL (3.4-5.0); Alkaline Phosphatase 95 U/L (46-116); Anion Gap 5.7 mmol/L (3-11); BUN 8 mg/dL (7-18); CO2 36.3 mmol/L (21.0-32.0); Calcium 8.4 mg/dL (8.5-10.1); Chloride 100 mmol/L (98-107); Estimated GFR 69.06 (mL/min/1.73m2); Glucose 247 mg/dL (74-106); Lipase 13 U/L (<78); Magnesium 1.8 mg/dL (1.8-2.4); Potassium 4.2 mmol/L (3.5-5.1); Sodium 142 mmol/L (136-145); Total Protein 6.7 g/dL (6.4-8.2)
[2024-11-04] MEDS: HYDROmorphone 2 MG/ML SYR 1 MG IVP (20:15)
[2024-11-04 20:32] LABS: INR 0.9 (0.9-1.1); PTT Activated 25.4 sec (23.6-32.8); Prothrombin Time 9.5 sec (9.1-11.1)
[2024-11-04 20:42] LABS: Bilirubin, Direct 0.2 mg/dL (0.0-0.2)
--- NOTE | 2024-11-04 21:33 | DI.VRAD_ITS ---
PROCEDURE INFORMATION: Exam: CTA Abdomen and Pelvis With Contrast Exam date and time: 11/04/2024 7:42 PM Age: 48 years old Clinical indication: Other: Worsening abdominal pain, ? mesenteric ischemia TECHNIQUE: Imaging protocol: Computed tomographic angiography of the abdomen and pelvis with contrast. Exam focused on the arteries. 3D rendering (Not supervised by radiologist): MIP and/or 3D reconstructed images were created by the technologist. Contrast material: 350; Contrast volume: 100 ml; Contrast route: INTRAVENOUS (IV); COMPARISON: CT ABDOMEN PELVIS W 11/03/2024 8:29 PM FINDINGS: Lungs: Minimal patchy ground-glass change is noted at the lung bases. Heart: There is marked cardiomegaly again noted. Aorta: No aortic aneurysm. No aortic dissection. Celiac trunk and mesenteric arteries: No occlusion or significant stenosis. Renal arteries: No occlusion or significant stenosis. Right iliac arteries: No occlusion or significant stenosis. Left iliac arteries: No occlusion or significant stenosis. Liver: No mass. Gallbladder and biliary ducts: Status post cholecystectomy. Pancreas: Unremarkable. No mass. No ductal dilation. Spleen: Unremarkable. No splenomegaly. Adrenal glands: Unremarkable. No mass. Kidneys and ureters: Unremarkable. No solid mass. No hydronephrosis. Stomach and bowel: Unremarkable. No obstruction. No mucosal thickening. Appendix: No evidence of appendicitis. Intraperitoneal space: Unremarkable. No free air. No significant fluid collection. Lymph nodes: Unremarkable. No enlarged lymph nodes. Urinary bladder: Unremarkable. No mass. Reproductive: Unremarkable as visualized. Bones/joints: No acute fracture. Soft tissues: Previously seen skin edema consistent with panniculitis is unchanged. There is some adjacent infiltration in the subcutaneous fat pannus. IMPRESSION: 1. No evidence for mesenteric ischemia. 2. No change panniculitis. Dictated and Authenticated by: Leticia Wood MD. Ordering:YOLANDA Kruse MD
== END 2024-11-04 22:11 | disposition home or self-care (01) ==
PROVIDERS: Emergency Provider Emergency Medicine; PCP Nurse Practitioner Family
DX: R11.2 Nausea with vomiting, unspecified (principal); R19.7 Diarrhea, unspecified; R10.9 Unspecified abdominal pain; I10 Essential (primary) hypertension; E78.5 Hyperlipidemia, unspecified; E11.9 Type 2 diabetes mellitus without complications; Z90.49 Acquired absence of other specified parts of digestive tract; Z79.84 Long term (current) use of oral hypoglycemic drugs; Z79.85 Long-term (current) use of injectable non-insulin antidiabetic drugs; Z99.81 Dependence on supplemental oxygen; F17.210 Nicotine dependence, cigarettes, uncomplicated
CPT/HCPCS: 36415; 80053; 82805; 83690; 96374; 96375; 99285; 74174; 82248; 83605; 83735; 85025; 85610; 85730; J1171; J1790; J1885; J3490

== ENCOUNTER 2024-11-29 22:16 | Emergency (ER) | payer MEDICARE, MEDICAID, SELFPAY ==
[2024-11-29] VITALS (18 sets, daily range): BP systolic 178–229; BP diastolic 68–107; PULSE 92–99; RESP 10–23; TEMP 36.4; O2SAT 91–100
--- NOTE | 2024-11-29 22:00 | RT.EKG_ITS ---
APPROVED REPORT Exam: Resting ECG Reason for Exam: sob Patient Location: E HR:99 bpm ECG Measurements Heart Rate 99 AXIS AK 157 P 52 QRSd 81 QRS 73 QT 377 T 40 QTc 485 Conclusion Sinus rhythm...normal P axis, V-rate 60- 99 Normal Interval/[place] No acute ST changes There are no significant changes compared to prior EKG performed on 10/26/2024 at 21:41.
--- NOTE | 2024-11-29 22:11 | ED.GENADUL_ITS ---
Discharge Plan Disposition Patient Disposition: Home Condition: Stable Discharge Details Clinical Impression: Asthma exacerbation, CAP (community acquired pneumonia) Primary Care Provider: BRYCE SMITH ED Provider: Ronaldo Cole [place] Meds and New Rx's Prescriptions: New cefpodoxime 200 mg tablet 200 mg PO BID Qty: 14 0RF Rx Instructions: must administer with a meal/food azithromycin 250 mg tablet 250 mg PO DAILY 4 Days Qty: 4 0RF Rx Instructions: start on day 2 of therapy prednisone 10 mg tablet See Taper PO DIRECTED Qty: 30 0RF Taper: Prednisone 10mg taper 40 mg Daily for 3 Days and 0 Hour 30 mg Daily for 3 Days and 0 Hour 20 mg Daily for 3 Days and 0 Hour 10 mg Daily for 3 Days and 0 Hour Rx Instructions: see taper instructions Continued (DME) Oxygen Tank See Rx Instructions .Route Qty: 1 0RF Rx Instructions: 2LPM with exertion pregabalin [Lyrica] 50 mg capsule 50 mg PO BID Patient Comments: prescribed by JAMES Jennings ipratropium-albuterol 0.5 mg-3 mg(2.5 mg base)/3 mL solution for nebulization 3 ml UPD Q4H PRN PRN (Reason: shortness of breath or wheezing) Qty: 540 12RF Jardiance 25 mg tablet 25 mg PO DAILY Dulera 200-5 mcg/actuation HFA aerosol inhaler 2 puff inhalation BID Qty: 13 12RF Rx Instructions: Rinse mouth after use Spiriva Respimat 2.5 mcg/actuation mist 2 puff inhalation DAILY Qty: 4 12RF albuterol sulfate [Proventil HFA] 90 mcg/actuation HFA aerosol inhaler 2 puff inhalation Q6H PRN (Reason: shortness of breath or wheezing) Qty: 8.5 12RF buspirone 30 mg tablet 30 mg PO BID Patient Comments: reports she is taking 60mg BID cyclobenzaprine 10 mg tablet 10 mg PO BID PRN (Reason: muscle spasm) omeprazole 20 mg capsule,delayed release(DR/EC) 20 mg PO DAILY lisinopril 20 mg Tablet 20 mg PO DAILY divalproex [Depakote] 500 mg Tablet,Delayed Release (Dr/Ec) 1,000 mg PO QHS risperidone [Risperdal] 2 mg Tablet 6 mg PO HS spironolactone 25 mg Tablet 25 mg PO DAILY Qty: 30 0RF escitalopram oxalate 20 mg tablet 20 mg PO DAILY Patient Comments: TAKE 1 TABLET BY MOUTH DAILY albuterol sulfate 2.5 mg /3 mL (0.083 %) solution for nebulization 2.5 mg inhalation Q4H PRNQty: 90 0RF Ozempic 0.25 mg or 0.5 mg (2 mg/3 mL) pen injector 0.25 mg SUBCUT .weekly Patient Comments: INJECT 0.25MG UNDER THE SKIN ONCE WEEKLY atomoxetine 40 mg capsule 80 mg PO DAILY Patient Comments: TAKE two CAPSULE BY MOUTH EVERY MORNING melatonin 10 mg capsule 10 mg PO HS PRN lidocaine 5 % adhesive patch,medicated 1 patch transdermal DAILY PRN Patient Comments: APPLY 1 PATCH TOPICALLY UP TO 12 HOURS AND OFF FOR 12 HOURS Trulicity 4.5 mg/0.5 mL pen injector 3 mg SUBCUT ONCE Patient Comments: INJECT 4.5MG UNDER THE SKIN ONCE WEEKLY DIRECTED prazosin 5 mg capsule 10 mg PO QHS Patient Comments: TAKE TWO CAPSULES BY MOUTH EVERY EVENING AT BEDTIME ondansetron 4 mg tablet,disintegrating 4 mg PO Q8H PRN (Reason: nausea and vomiting) Qty: 30 0RF ibuprofen 800 mg tablet 800 mg PO BID PRN Patient Comments: TAKE ONE TABLET BY MOUTH TWICE A DAY NEEDED furosemide [Lasix] 20 mg tablet 20 mg PO DAILY Qty: 14 0RF Discharge Instructions Instructions: Pneumonia, Adult ED Additional Instructions: You were seen for cough and shortness of breath. Overall your evaluation is reassuring with good oxygenation, labs. Your blood pressure has been running high here in the ED so be sure to have primary care recheck this. You do have a chest x-ray concerning for early pneumonia for which we will start you on antibiotics. You will need to take your first dose of cefpodoxime this evening. You will need to take your first dose of azithromycin tomorrow morning. You may begin the prednisone taper today. You should use your albuterol inhaler or nebulizer every 4 hours for the next couple of days until you are feeling better. Please follow-up with your primary care physician this week for recheck. Return to ED for any significant worsening in breathing, mental status, chest pain, persistent vomiting, other concerns. Referrals: BRYCE SMITH, JUDGE CLERK [Primary Care Provider] - HPI General Mode of arrival: EMS . Date/Time Provider Initiated Documentation: 11/29/24 22:22 . Limitations to Documentation: no limitations . Information obtained by: patient, EMS, RN notes reviewed and old records reviewed . HPI Narrative: Patient presents to ED by ambulance with complaint of shortness of breath. Susana ent has history of COPD on oxygen but still smokes. Reports developing a cough and cold-like symptoms last week. Denies any fever. Has had increasing shortness of breath despite using inhaler and nebulizers at home. She is not currently on steroids. She reports a nonproductive cough. She reports persistent chest discomfort and tightness. Denies any abdominal pain or vomiting. Denies any leg pain or swelling. Initially had improvement while using her nebulizes but has not been as helpful over the last day or 2. Received a DuoNeb en route. States that she is typically on 3 L nasal cannula at home. Related Data Home Medications ?Medication ?Instructions ?Recorded ?Confirmed divalproex 500 mg tablet,delayed 1,000 mg PO QHS 01/18/20 11/29/24 release (Depakote) lisinopril 20 mg tablet 20 mg PO DAILY 01/18/20 11/29/24 risperidone 2 mg tablet (Risperdal) 6 mg PO HS 01/18/20 11/29/24 ibuprofen 800 mg tablet 800 mg PO BID PRN 11/20/22 11/29/24 Oxygen #1 ea 12/13/22 11/29/24 spironolactone 25 mg tablet 25 mg PO DAILY #30 tabs 05/06/23 11/29/24 furosemide 20 mg tablet (Lasix) 20 mg PO DAILY #14 tabs 06/13/23 11/29/24 ipratropium 0.5 mg-albuterol 3 mg 3 ml UPD Q4H PRN PRN shortness of 09/12/23 11/29/24 (2.5 mg base)/3 mL nebulization breath or wheezing #540 mL soln empagliflozin 25 mg tablet 25 mg PO DAILY 12/15/23 11/29/24 (Jardiance) buspirone 30 mg tablet 30 mg PO BID 02/09/24 11/29/24 cyclobenzaprine 10 mg tablet 10 mg PO BID PRN muscle spasm 02/09/24 11/29/24 omeprazole 20 mg capsule,delayed 20 mg PO DAILY 02/09/24 11/29/24 release escitalopram oxalate 20 mg tablet 20 mg PO DAILY 02/13/24 11/29/24 albuterol sulfate 2.5 mg/3 mL 2.5 mg (3 mL) inhalation Q4H PRN 02/14/24 11/29/24 (0.083 %) solution for nebulization #90 mL pregabalin 50 mg capsule (Lyrica) 50 mg PO BID 06/21/24 11/29/24 albuterol sulfate 90 mcg/actuation 2 puff inhalation Q6H PRN 08/04/24 11/29/24 aerosol inhaler (Proventil HFA) shortness of breath or wheezing #8.5 grams mometasone-formoterol HFA 200 2 puff inhalation BID #13 grams 08/04/24 11/29/24 mcg-5 mcg/actuation aerosol inhaler (Dulera) tiotropium bromide 2.5 2 puff inhalation DAILY #4 grams 08/04/24 11/29/24 mcg/actuation mist for inhalation (Spiriva Respimat) atomoxetine 40 mg capsule 80 mg PO DAILY 08/19/24 11/29/24 dulaglutide 4.5 mg/0.5 mL 3 mg subcut ONCE 08/19/24 11/29/24 subcutaneous pen injector ([employer]) lidocaine 5 % topical patch 1 patch transdermal DAILY PRN 08/19/24 11/29/24 melatonin 10 mg capsule 10 mg PO HS PRN 08/19/24 11/29/24 semaglutide 0.25 mg or 0.5 mg (2 0.25 mg subcut .weekly 08/19/24 11/29/24 mg/3 mL) subcutaneous pen injector (Ozempic) prazosin 5 mg capsule 10 mg PO QHS 08/20/24 11/29/24 ondansetron 4 mg disintegrating 4 mg PO Q8H PRN nausea and 11/04/24 11/29/24 tablet vomiting #30 tabs azithromycin 250 mg tablet 250 mg PO DAILY 4 days #4 tabs 11/30/24 cefpodoxime 200 mg tablet 200 mg PO BID #14 tabs 11/30/24 prednisone 10 mg tablet See Taper PO DIRECTED #30 tabs 11/30/24 Previous Rx's ?Medication ?Instructions ?Recorded Oxygen #1 ea 12/13/22 spironolactone 25 mg tablet 25 mg PO DAILY #30 tabs 05/06/23 furosemide 20 mg tablet (Lasix) 20 mg PO DAILY #14 tabs 06/13/23 ipratropium 0.5 mg-albuterol 3 mg 3 ml UPD Q4H PRN PRN shortness of 09/12/23 (2.5 mg base)/3 mL nebulization breath or wheezing #540 mL soln albuterol sulfate 2.5 mg/3 mL 2.5 mg (3 mL) inhalation Q4H PRN 02/14/24 (0.083 %) solution for nebulization #90 mL albuterol sulfate 90 mcg/actuation 2 puff inhalation Q6H PRN 08/04/24 aerosol inhaler (Proventil HFA) shortness of breath or wheezing #8.5 grams mometasone-formoterol HFA 200 2 puff inhalation BID #13 grams 08/04/24 mcg-5 mcg/actuation aerosol inhaler (Dulera) tiotropium bromide 2.5 2 puff inhalation DAILY #4 grams 08/04/24 mcg/actuation mist for inhalation (Spiriva Respimat) ondansetron 4 mg disintegrating 4 mg PO Q8H PRN nausea and 11/04/24 tablet vomiting #30 tabs azithromycin 250 mg tablet 250 mg PO DAILY 4 days #4 tabs 11/30/24 cefpodoxime 200 mg tablet 200 mg PO BID #14 tabs 11/30/24 prednisone 10 mg tablet See Taper PO DIRECTED #30 tabs 11/30/24 Allergies Allergy/AdvReac Type Severity Reaction Status Date / Time bee pollen Allergy Hives Verified 11/29/24 22:43 hazelnut Allergy Hives Verified 11/29/24 22:43 peanut Allergy hallucinati Verified 11/29/24 22:43 on tree nut Allergy hallucinati Verified 11/29/24 22:43 on gabapentin AdvReac Severe vomiting Verified 11/29/24 22:43 varenicline (From Chantix) AdvReac Intermediate depression Verified 11/29/24 22:43 amoxicillin AdvReac Nausea Verified 11/29/24 22:43 fluoxetine (From Prozac) AdvReac Nausea Verified 11/29/24 22:43 trazodone AdvReac Weight gain Verified 11/29/24 22:43 abelox Allergy Hives Uncoded 11/29/24 22:43 General ZACK: 3 Review of Systems Narrative: Per HPI Exam Narrative Exam Narrative: Const: Obese female in NAD. VS per triage. HEENT: NC/AT. Normal facial exam. Neck: Supple. Trachea midline. Lungs: Normal respiratory effort. Lungs with diffuse wheeze, fair air exchange, no focal findings Cor: RRR without murmur. Good radial pulses. GI: Soft/ND Neuro: A+O x 3. Normal speech, mentation, gait. Cranial nerves II - XII grossly intact. No gross motor or sensory deficit. Ext: No C/C/E. No calf tenderness. Medical Decision Making Patient presents to ED with complaint of cough for 1 week, increasing shortness of breath despite use of nebulizer over the last couple of days. She denies any fever and cough is nonproductive. Has had a chest discomfort for a few days now. She is in no distress. Saturations on 3 L nasal cannula greater than 95%. She is not tachycardic. She is low risk for PE and PERC's out. Her EKG is sinus rhythm with no acute ST changes and unchanged from previous. Will give second DuoNeb as well as IV steroids. Will check Fluvid, chest x-ray, basic labs including one troponin. Patient's laboratory studies with a normal white count and hemoglobin. Her VBG shows a normal pH with pCO2 of 53, no significant retention. Bicarb is elevated but baseline. Kidney function is normal. Glucose a little high at 283. Initial troponin was elevated at 67. EKG is completely normal. Will obtain a 1 hour and 3-hour troponin. Two-view chest x-ray per my read as well as preliminary radiology read with possible developing right lower lobe pneumonia. Will cover with a dose of ceftriaxone and azithromycin here. Patient is resting comfortably and while she still has some wheezing is in no distress and saturations on her 3 L are greater than 95%. If follow-up troponins are flat suspect patient will be able to go home on steroids and antibiotics with close follow-up with PCP. Patient's third troponin remains flat. This is not consistent with ACS or NSTEMI. Vital signs remain stable although blood pressure continues to be elevated. She is to continue her current medications as previously prescribed. Will plan discharge home on steroids and antibiotics. She is to use her albuterol inhaler or nebulizer every 4 hours until feeling better. She should follow-up with primary care this week for recheck. Return precautions provided. Imaging Data Radiologic Study: Attestation: I personally reviewed and interpreted this imaging study as follows: Imaging: X-Ray My impression: see [facility] Lab Data Lab results reviewed: Yes I reviewed the patient's lab results. Lab results narrative: see [facility] ECG Data Attestation: I personally reviewed and interpreted this ECG (s) as follows: Prior ECG tracings: available for review Interpretation: see EKG/MDM PFSH All Active Problems (Updated 11/30/24 @ 02:18 by Ronaldo Cole MD) CAP (community acquired pneumonia) (Acute) Asthma exacerbation (Acute) Spinal stenosis (Acute) Heart failure (Acute) Migraine (Chronic) Nicotine dependence, cigarettes, uncomplicated (Acute) Vitamin D deficiency (Acute) Tobacco abuse (Chronic) Medical History Left ventricular hypertrophy Obesity hypoventilation syndrome Schizoaffective disorder Post traumatic stress disorder Hyperlipidemia Asthma H/O suicide attempt ADHD Anxiety Bipolar disorder Non-insulin dependent diabetes mellitus Obesity (BMI 30.0-34.9) Hypertension Surgical History Status post bilateral salpingectomy S/P cholecystectomy Family History Other Adopted Social History Smoking/Tobacco Use Status: Current every day Tobacco Type: cigarettes Smoking packs per day: 0.25 Smoking cigarettes per day: 5.0 Years smoked: 40 Smoking pack-years: 10.00 Tobacco: How many years used: 40 Smoking risk assessment performed?: Yes Alcohol Intake: never Drug use: Occasionally Substance use type: marijuana Details: smokes marijuana about once per month 01/11/24 Housing: apartment Do you feel safe at home: Yes Do you feel safe in your relationship?: Yes Additional Social history: [address] [facility] [place] [place]. She is disabled with her medical and mental health conditions. 22 year old daughter in [place].
--- NOTE | 2024-11-29 22:15 | DI.RAD_ITS ---
Exam(s) XR CHEST 2V PA LATERAL EXAM: XR CHEST 2V PA LATERAL CLINICAL HISTORY: cough, SOB TECHNIQUE: 2D digital imaging was performed of the chest. Two images were obtained. PA and lateral views were obtained. COMPARISON: CR XR CHEST 2V PA LATERAL from 07/01/2024 FINDINGS: MEDIASTINUM: Normal. HEART: Normal. PULMONARY VASCULATURE: Normal. LUNGS: There is an infiltrate in the right middle lobe. PLEURAL SPACE: No pleural effusion or pneumothorax. BONE:Within normal limits for the patient's age. OTHER FINDINGS:Normal. IMPRESSION: Findings suspicious for right middle lobe pneumonia. DATA REPOSITORY: RADIATION DOSE DELIVERED:
[2024-11-29] MEDS: Albuterol/Ipratropium 3 ML UPD VIAL UPD (22:36)
[2024-11-29] MEDS: methylPREDNISolone SUCC 125 MG VIAL IVP (22:37)
[2024-11-29 22:39] LABS: Abs Immature Grans 0.12 10^3/uL (0.0-0.06); Absolute Basophil Count 0.04 10^3/uL (0.0-0.2); Absolute Eosinophil Count 0.07 10^3/uL (0.0-0.7); Absolute Lymphocyte Count 1.99 10^3/uL (1.2-3.4); Absolute Monocyte Count 0.28 10^3/uL (0.1-0.8); Absolute Neutrophil Count 5.13 10^3/uL (1.2-6.7); BE (Venous) 7 mmol/L (-2-3); Basophils % 0.5 %; Eosinophils % 0.9 %; HCO3 (Venous) 32 mmol/L (23-28); HCT 39.8 % (36.0-46.0); HGB 12.5 g/dL (11.2-15.7); Immature Grans % 1.6 %; Lymphocytes % 26.1 %; MCH 28.2 pg (27.0-33.0); MCHC 31.4 % (32.0-36.0); MCV 90 fL (80-95); MPV 9.4 fL (8.0-11.0); Monocytes % 3.7 %; Neutrophils % 67.2 %; O2 Sat (Venous) 90 %; Platelet Count 208 10^3/uL (130-400); RBC 4.44 10^6/uL (3.93-5.22); RDW 17.2 % (11.7-14.6); RDW-SD 56.2 fL; TCO2 (Venous) 29 mmol/L (24-29); WBC 7.63 10^3/uL (4.4-10.8); pCO2 (Venous) 53 mmHg (41-51); pH (Venous) 7.39 (7.31-7.41); pO2 (Venous) 55 mmHg
[2024-11-29 23:02] LABS: ALT 12 U/L (14-59); AST 12 U/L (15-37); Albumin 2.5 g/dL (3.4-5.0); Alkaline Phosphatase 108 U/L (46-116); Anion Gap 0.9 mmol/L (3-11); BUN 7 mg/dL (7-18); Bilirubin, Total 0.13 mg/dL (0.2-1.0); CO2 35.1 mmol/L (21.0-32.0); CREATININE 0.9 mg/dL (0.55-1.02); Calcium 8.4 mg/dL (8.5-10.1); Chloride 103 mmol/L (98-107); Estimated GFR 78.37 (mL/min/1.73m2); Glucose 283 mg/dL (74-106); Potassium 3.9 mmol/L (3.5-5.1); Sodium 139 mmol/L (136-145); Total Protein 6.8 g/dL (6.4-8.2)
[2024-11-29 23:04] LABS: Troponin I 67 ng/L (<or=51)
[2024-11-29 23:17] LABS: COVID-19 PCR Negative (Negative); Influenza A PCR Negative (Negative); Influenza B PCR Negative (Negative); RSV PCR Negative (Negative)
[2024-11-29 23:24] LABS: Source NASOPHARYNX
[2024-11-30] VITALS (14 sets, daily range): BP systolic 190–201; BP diastolic 89–91; PULSE 90–96; RESP 11–19; O2SAT 93–95
[2024-11-30 00:24] LABS: Troponin I 67 ng/L (<or=51)
--- NOTE | 2024-11-30 00:29 | DI.VRAD_ITS ---
PROCEDURE INFORMATION: Exam: XR Chest Exam date and time: 11/29/2024 11:35 PM Age: 48 years old Clinical indication: Cough and shortness of breath; Patient HX: Cough, SOB TECHNIQUE: Imaging protocol: Radiologic exam of the chest. Views: 2 views. COMPARISON: CR XR PORTABLE CHEST AP 10/26/2024 10:25 PM FINDINGS: Lungs: Evaluation of the lower lungs is limited by large body habitus. Even allowing for this, there is possible airspace opacity in the lower right lung on the frontal view, not corroborated on lateral, raising the possibility of pneumonia. CT scan would allow definitive characterization if clinically warranted. Pleural spaces: Unremarkable. No pleural effusion. No pneumothorax. Heart/Mediastinum: Unremarkable. No cardiomegaly. Bones/joints: Unremarkable. IMPRESSION: Evaluation of the lower lungs is limited by large body habitus. Even allowing for this, there is possible airspace opacity in the lower right lung on the frontal view, not corroborated on lateral, raising the possibility of pneumonia. CT scan would allow definitive characterization if clinically warranted. Dictated and Authenticated by: Esteban Mathews MD. Ordering:KATHY Higgins MD
[2024-11-30] MEDS: cefTRIAXone 1 GM/50 ML BAG IVPB (00:53)
[2024-11-30] MEDS: Azithromycin 250 MG TAB 500 MG PO (00:53)
[2024-11-30 02:08] LABS: Troponin I 68 ng/L (<or=51)
== END 2024-11-30 06:06 | disposition home or self-care (01) ==
PROVIDERS: Emergency Provider Emergency Medicine; PCP Nurse Practitioner Family
DX: J45.901 Unspecified asthma with (acute) exacerbation (principal); J18.9 Pneumonia, unspecified organism; R05.9 Cough, unspecified; R06.02 Shortness of breath; F17.210 Nicotine dependence, cigarettes, uncomplicated
CPT/HCPCS: 36415; 80053; 82805; 87637; 93005; 94640; 96365; 96375; 99285; 71046; 83735; 84484; 85025; 93010; J0696; J2919; J7620

== ENCOUNTER → 2024-12-15 14:03 | Outpatient (BNVA) | payer MEDICARE, MEDICAID, SELFPAY | PROVIDERS: PCP Nurse Practitioner Family; Referring Provider Nurse Practitioner Family; Visit Provider Physician Assistant Surgical | DX: J45.909 Unspecified asthma, uncomplicated (principal); J96.11 Chronic respiratory failure with hypoxia; J96.12 Chronic respiratory failure with hypercapnia; E66.2 Morbid (severe) obesity with alveolar hypoventilation; F17.210 Nicotine dependence, cigarettes, uncomplicated | CPT/HCPCS: 99214 ==

== ENCOUNTER 2024-12-22 22:05 | Emergency (ER) | payer MEDICARE, MEDICAID, SELFPAY ==
[2024-12-22 22:07] VITALS: BP 173/87; PULSE 98; RESP 20; TEMP 35.8; O2SAT 90
--- NOTE | 2024-12-22 22:29 | PDOC.MHCN ---
Date of service: 12/22/24 Time of Service: 21:35 PHQ-9 Over the last 2 weeks, how often have you been bothered by any of the following problems? 1. Little interest or pleasure in doing things: nearly every day 2. Feeling down, depressed, or hopeless: nearly every day 3. Trouble falling or staying asleep, or sleeping too much: nearly every day 4. Feeling tired or having little energy: nearly every day 5. Poor appetite or overeating: nearly every day 6. Feeling bad about yourself - or that you are a failure or have let yourself and your family down: nearly every day 7. Trouble concentrating on things, such as reading the newspaper or watching television: nearly every day 8. Moving or speaking so slowly that other people could have noticed? - Or the opposite - being so fidgety or restless that you have been moving around a lot more than usual: nearly every day 9. Thoughts that you would be better off or of hurting yourself in some way: not at all Total score: 24 If you checked off any problems, how difficult have these problems made it for you to do your work, take care of things at home, or get along with other people?: extremely difficult PHQ-9 Results: Positive Source: Developed by Drs. Ronaldo Zamudio, Brandy Mitchell, Luis Amanda and colleagues, with an educational pablo from [employer]. Suicide Severity Rate CSSRS Have you wished you were or wished you could go to sleep and not wake up?: No Have you actually had any thoughts of killing yourself?: No CSSRS3 Have you ever done anything, started to do anything or prepared to do anything to end your life?: Yes CSSRS4 Was this within the past three months?: No Screening Score Total Score: 2 Screening: Positive Mental Health Emergency Note Release [facility] release signed:: Yes Reason for Visit Cecilia presents to [facility] via ambulance after being seen by mobile crisis and reporting she cannot be safe in her home and not wanting to engage in lesser restrictive options. Cecilia is seeking voluntary inpatient treatment. In the last 2 weeks has the pt presented for ES prior to today?: Unknown Client Information Client is: Adult Outpatient Well Housed: Yes Non Suicidal Self Injury Current: No History: No Safety Risk/Harm to Self or Others Current Ideation to Harm Self or Others: Yes to self. (Client rates herself 10/10 on intent level with plan to overdose on prescriptions. ) Intent: yes, has intent. Plan: yes,has a plan. History of suicide attempt: yes,history of suicide attempt reported. Details of previous suicide attempt: Client reports attempt to overdose in 2013 Risk: Does risk to harm exist?: No Risk: N/A Duty to warn indicated: No Asssessment/Mental Status Appearance: Disheveled Attitude: Cooperative Behavior: Unremarkable Speech: Soft and Slow Affect: Flat and Cogruent with mood Mood: Sad, Stressed and Anxious Thought process: Goal directed Hallucinations: No evidence Delusions: No evidence Attention: Unremarkable Perception: Not impaired Orientation: Fully orientated Memory: Intact Insight: Poor Judgement: Poor Neurovegetative Symptoms Sleep: Decrease Appetitie: No change Interests: Decrease Energy: Decrease Libido: Not applicable Substance Use: Do you use nicotine?: No Have you used substances in the last 7 days?: No Additional Issues: Assaultive/Threatening Behavior: No Medical Concerns: No Client engaged in active self harm w/weapon: No Threatening to run away: No Child reported abuse/neglect: No Voluntarily presenting for services: Yes Domestic violence is a concern: No Extreme Psychosis or extreme behavior is present: No Impression Cecilia presents to this internal communications writer sitting on the stairs of her apartment, Cecilia is in street clothes, presents as disheveled. Cecilia reports she has been feeling down, depressed, and suicidal for the past few nights. Cecilia reports she has been keeping her up due to her not sleeping and not being able to settle down. Cecilia reports she has not been able to sleep and she is very up and down. Cecilia reports no changes to her appetite. Cecilia reports no changes to her medications even though she recently met with her med provider. Cecilia reports that she has been taking all medications as prescribed. Cecilia has felt like this in the past and has a history of attempting to overdose in 2013. Cecilia reports on a self reported scale of 0-10, 0 being she could be safe and 10 being she would attempt to take her life she is a 10/10. Cecilia reports she has a plan to take her medications which she has access to due to self administering. Cecilia scored high on all screening tools but had conflicting answers as she responded no to SI questions, when this internal communications writer asked qualifying questions she stated she had been suicidal, but she was also prompted by her who was present for the assessment. Cecilia reports she is diagnosed with Bipolar disorder. Cecilia reports a history of going inpatient numerous times for both mental health and substance usage, Cecilia estimated about 19 prior treatments. Cecilia reports she is hoping to learn coping skills if she were to return to treatment as she does not feel safe at home. Cecilia reports she did not learn coping skills during her last stay as she asked to be discharged early. Cecilia reports she feels she is in need of inpatient treatment again. This internal communications writer and LORENZO Booth attempted to discuss alternative options including a care bed referral and the ability to provide a lock box for the medications but Cecilia denied this and reported she could not be safe within her hoe. LORENZO Booth will call an ambulance with Cecilia while this internal communications writer calls [facility] to give them a heads up that Cecilia is coming in. Resources Reosurces reviewed and given:: Crisis Bed and [facility] Plan/Disposition Recommended Disposition: Hospitalization (Referrals were sent on 12/22 at night) facilities contacted. Plan: Cecilia will remain at [facility] until voluntary treatment is found. Cecilia will be re-assessed once daily by [facility] Person reported agreement to plan: Yes Reports/communication Outcome discussed with: ED/Personnel
--- NOTE | 2024-12-22 23:06 | ED.GENADUL_ITS ---
Discharge Plan Discharge Details Chief Complaint: PsychEval Primary Care Provider: BRYCE SMITH ED Provider: Gus Tellez Home Meds and New Rx's Prescriptions: No Action (DME) Oxygen Tank See Rx Instructions .Route Qty: 1 0RF Rx Instructions: 2LPM with exertion pregabalin [Lyrica] 50 mg capsule 50 mg PO BID Patient Comments: prescribed by Bryce Smith, PCP ipratropium-albuterol 0.5 mg-3 mg(2.5 mg base)/3 mL solution for nebulization 3 ml UPD Q4H PRN PRN (Reason: shortness of breath or wheezing) Qty: 540 12RF azithromycin 250 mg tablet 250 mg PO DAILY Qty: 90 4RF Jardiance 25 mg tablet 25 mg PO DAILY Dulera 200-5 mcg/actuation HFA aerosol inhaler 2 puff inhalation BID Qty: 13 12RF Rx Instructions: Rinse mouth after use Spiriva Respimat 2.5 mcg/actuation mist 2 puff inhalation DAILY Qty: 4 12RF albuterol sulfate [Proventil HFA] 90 mcg/actuation HFA aerosol inhaler 2 puff inhalation Q6H PRN (Reason: shortness of breath or wheezing) Qty: 8.5 12RF buspirone 30 mg tablet 30 mg PO BID Patient Comments: reports she is taking 60mg BID cyclobenzaprine 10 mg tablet 10 mg PO BID PRN (Reason: muscle spasm) omeprazole 20 mg capsule,delayed release(DR/EC) 20 mg PO DAILY lisinopril 20 mg Tablet 20 mg PO DAILY divalproex [Depakote] 500 mg Tablet,Delayed Release (Dr/Ec) 1,000 mg PO QHS risperidone [Risperdal] 2 mg Tablet 6 mg PO HS spironolactone 25 mg Tablet 25 mg PO DAILY Qty: 30 0RF escitalopram oxalate 20 mg tablet 20 mg PO DAILY Patient Comments: TAKE 1 TABLET BY MOUTH DAILY albuterol sulfate 2.5 mg /3 mL (0.083 %) solution for nebulization 2.5 mg inhalation Q4H PRNQty: 90 0RF atomoxetine 40 mg capsule 80 mg PO DAILY Patient Comments: TAKE two CAPSULE BY MOUTH EVERY MORNING melatonin 10 mg capsule 10 mg PO HS PRN prazosin 5 mg capsule 10 mg PO QHS Patient Comments: TAKE TWO CAPSULES BY MOUTH EVERY EVENING AT BEDTIME ondansetron 4 mg tablet,disintegrating 4 mg PO Q8H PRN (Reason: nausea and vomiting) Qty: 30 0RF ibuprofen 800 mg tablet 800 mg PO BID PRN Patient Comments: TAKE ONE TABLET BY MOUTH TWICE A DAY NEEDED furosemide [Lasix] 20 mg tablet 20 mg PO DAILY Qty: 14 0RF HPI General Date/Time Provider Initiated Documentation: 12/22/24 22:08 . HPI Narrative: The patient is a 49-year-old female, with a past medical history significant for tobacco misuse disorder with COPD, hypertension, [id number] diabetes, anxiety, depression, who was seen today by [facility] and sent to the emergency department as she could not contract for safety at home. The patient has been having increasing thoughts of self-harm at home because she is having difficulty sleeping and this is keeping her awake which is causing family strife. The patient states that she takes her medications regularly. The patient is typically supposed to use nasal cannula oxygen at 2 L for any exertional activities such as walking, but the patient is relatively noncompliant and told nursing tonight that her oxygen concentrator was not charged. The patient was given a nebulizer treatment en route to the emergency department by EMS as she initially had an oxygen saturation of 88% on room air. Here the patient's oxygen saturation is 90 to 91% and she does not appear to be struggling to breathe. Related Data Home Medications ?Medication ?Instructions ?Recorded ?Confirmed divalproex 500 mg tablet,delayed 1,000 mg PO QHS 01/18/20 12/15/24 release (Depakote) lisinopril 20 mg tablet 20 mg PO DAILY 01/18/20 12/15/24 risperidone 2 mg tablet (Risperdal) 6 mg PO HS 01/18/20 12/15/24 ibuprofen 800 mg tablet 800 mg PO BID PRN 11/20/22 12/15/24 Oxygen #1 ea 12/13/22 12/15/24 spironolactone 25 mg tablet 25 mg PO DAILY #30 tabs 05/06/23 12/15/24 furosemide 20 mg tablet (Lasix) 20 mg PO DAILY #14 tabs 06/13/23 12/15/24 empagliflozin 25 mg tablet 25 mg PO DAILY 12/15/23 12/15/24 (Jardiance) buspirone 30 mg tablet 30 mg PO BID 02/09/24 12/15/24 cyclobenzaprine 10 mg tablet 10 mg PO BID PRN muscle spasm 02/09/24 12/15/24 omeprazole 20 mg capsule,delayed 20 mg PO DAILY 02/09/24 12/15/24 release escitalopram oxalate 20 mg tablet 20 mg PO DAILY 02/13/24 12/15/24 albuterol sulfate 2.5 mg/3 mL 2.5 mg (3 mL) inhalation Q4H PRN 02/14/24 12/15/24 (0.083 %) solution for nebulization #90 mL pregabalin 50 mg capsule (Lyrica) 50 mg PO BID 06/21/24 12/15/24 albuterol sulfate 90 mcg/actuation 2 puff inhalation Q6H PRN 08/04/24 12/15/24 aerosol inhaler (Proventil HFA) shortness of breath or wheezing #8.5 grams mometasone-formoterol HFA 200 2 puff inhalation BID #13 grams 08/04/24 12/15/24 mcg-5 mcg/actuation aerosol inhaler (Dulera) tiotropium bromide 2.5 2 puff inhalation DAILY #4 grams 08/04/24 12/15/24 mcg/actuation mist for inhalation (Spiriva Respimat) atomoxetine 40 mg capsule 80 mg PO DAILY 08/19/24 12/15/24 melatonin 10 mg capsule 10 mg PO HS PRN 08/19/24 12/15/24 prazosin 5 mg capsule 10 mg PO QHS 08/20/24 12/15/24 ondansetron 4 mg disintegrating 4 mg PO Q8H PRN nausea and 11/04/24 12/15/24 tablet vomiting #30 tabs azithromycin 250 mg tablet 250 mg PO DAILY #90 tabs 12/15/24 12/15/24 ipratropium 0.5 mg-albuterol 3 mg 3 ml UPD Q4H PRN PRN shortness of 12/15/24 12/15/24 (2.5 mg base)/3 mL nebulization breath or wheezing #540 mL soln Previous Rx's ?Medication ?Instructions ?Recorded Oxygen #1 ea 12/13/22 spironolactone 25 mg tablet 25 mg PO DAILY #30 tabs 05/06/23 furosemide 20 mg tablet (Lasix) 20 mg PO DAILY #14 tabs 06/13/23 albuterol sulfate 2.5 mg/3 mL 2.5 mg (3 mL) inhalation Q4H PRN 02/14/24 (0.083 %) solution for nebulization #90 mL albuterol sulfate 90 mcg/actuation 2 puff inhalation Q6H PRN 08/04/24 aerosol inhaler (Proventil HFA) shortness of breath or wheezing #8.5 grams mometasone-formoterol HFA 200 2 puff inhalation BID #13 grams 08/04/24 mcg-5 mcg/actuation aerosol inhaler (Dulera) tiotropium bromide 2.5 2 puff inhalation DAILY #4 grams 08/04/24 mcg/actuation mist for inhalation (Spiriva Respimat) ondansetron 4 mg disintegrating 4 mg PO Q8H PRN nausea and 11/04/24 tablet vomiting #30 tabs azithromycin 250 mg tablet 250 mg PO DAILY #90 tabs 12/15/24 ipratropium 0.5 mg-albuterol 3 mg 3 ml UPD Q4H PRN PRN shortness of 12/15/24 (2.5 mg base)/3 mL nebulization breath or wheezing #540 mL soln Allergies Allergy/AdvReac Type Severity Reaction Status Date / Time bee pollen Allergy Hives Verified 12/15/24 14:22 hazelnut Allergy Hives Verified 12/15/24 14:22 peanut Allergy hallucinati Verified 12/15/24 14:22 on tree nut Allergy hallucinati Verified 12/15/24 14:22 on gabapentin AdvReac Severe vomiting Verified 12/15/24 14:22 varenicline (From Chantix) AdvReac Intermediate depression Verified 12/15/24 14:22 amoxicillin AdvReac Nausea Verified 12/15/24 14:22 fluoxetine (From Prozac) AdvReac Nausea Verified 12/15/24 14:22 trazodone AdvReac Weight gain Verified 12/15/24 14:22 abelox Allergy Hives Uncoded 12/15/24 14:22 General Stated Complaint: PsychEval ZACK: 2 Exam Const General: cooperative, no acute distress and disheveled Nutritional Appearance: obese Orientation: alert and oriented x3 HENMT Head: normocephalic and atraumatic Ears: external ears normal General nose exam: external nose normal and nares normal Eyes General: appearance normal, both eyes and all related structures Sclera: sclerae normal Cornea: corneas normal EOM: EOM intact bilaterally Neck Neck: normal visual inspection and full ROM Resp Effort & Inspection: normal respiratory effort and able to speak in complete s entences Auscultation: wheezes (diffuse) expiratory wheezes Other: Poor air exchange Cardio Rate: regular rate Rhythm: regular rhythm GI Palpation: soft Auscultation: normal bowel sounds Skin General skin exam: no rashes or lesions noted and turgor normal Neuro General: patient alert, patient awake, patient oriented x3, moves all extremities, no focal motor deficits and CN's II-XI intact bilaterally Cognition: normal cognition Speech: speech normal Gait: normal gait Extrem General: normal to inspection and full ROM Psych Appearance: disheveled Mental Status: mental status grossly normal Speech and Movement: speech and movement normal Mood: labile mood Affect: dysphoric affect Attitude: cooperative Thought Content: suicidality Course Vital Signs Vital signs: Vital Signs Temperature 35.8 C L 12/22/24 22:07 Pulse 98 H 12/22/24 22:07 Respiratory Rate 20 12/22/24 22:07 Blood Pressure 173/87 H 12/22/24 22:07 Pulse Oximetry 90 L 12/22/24 22:07 Temperature 35.8 C L 12/22/24 22:07 Temperature Source Skin 12/22/24 22:07 Pulse 98 H 12/22/24 22:07 Respiratory Rate 20 12/22/24 22:07 Blood Pressure 173/87 H 12/22/24 22:07 Blood Pressure Position Sitting 12/22/24 22:07 Pulse Oximetry 90 L 12/22/24 22:07 Oxygen Delivery Method Room Air 12/22/24 22:07 Oxygen Flow Rate 0 12/22/24 22:07 Medical Decision Making The patient was seen and examined. She is in no distress and has no obvious respiratory effort despite poor air exchange and some diffuse generalized wheezing. The patient is likely saturating at her normal oxygen saturation in the low 90s. She did have a blood glucose level on a fingerstick that read in the high 300s. I would be doubtful that the patient is compliant with her medications on a regular basis. She is also taking multiple medications including prednisone and risperidone which could be elevating her blood glucose level. The patient was seen by [facility] and sent to the emergency department for hospitalization. She will have basic labs, VBG to exclude hypercapnia, and be placed on some oxygen by nasal cannula. She will have some nebulizer treatments here in the emergency room to help improve her lung compliance. Disposition depends on discovery of any remarkable pathology on her labs and referral for hospitalization by [facility]. Quality:[facility] Health Related Social Needs: No Data to Display [facility] All Active Problems (Updated 12/05/24 @ 00:05 by ELLEN LEWIS) CAP (community acquired pneumonia) (Acute) Asthma exacerbation (Acute) Spinal stenosis (Acute) Heart failure (Acute) Migraine (Chronic) Nicotine dependence, cigarettes, uncomplicated (Acute) Vitamin D deficiency (Acute) Tobacco abuse (Chronic) Medical History Left ventricular hypertrophy Obesity hypoventilation syndrome Schizoaffective disorder Post traumatic stress disorder Hyperlipidemia Asthma H/O suicide attempt ADHD Anxiety Bipolar disorder Non-insulin dependent diabetes mellitus Obesity (BMI 30.0-34.9) Hypertension Surgical History Status post bilateral salpingectomy S/P cholecystectomy Family History Other Adopted Social History Smoking/Tobacco Use Status: Current every day Tobacco Type: cigarettes Smoking packs per day: 0.25 Smoking cigarettes per day: 5.0 Years smoked: 40 Smoking pack-years: 10.00 Tobacco: How many years used: 40 Smoking risk assessment performed?: Yes Alcohol Intake: never Drug use: Occasionally Substance use type: marijuana Details: smokes marijuana about once per month 01/11/24 Housing: apartment Do you feel safe at home: Yes Do you feel safe in your relationship?: Yes Additional Social history: Lives with on [address] in [place]. She is disabled with her medical and mental health conditions. 22 year old daughter in [place].
[2024-12-22] MEDS: Lisinopril 20 MG TAB PO (23:23)
[2024-12-22] MEDS: Albuterol/Ipratropium 3 ML UPD VIAL UPD ×2 (23:23)
[2024-12-22] MEDS: Empaglifozin 25 MG TAB PO (23:23)
[2024-12-22 23:27] LABS: BE (Venous) 4 mmol/L (-2-3); HCO3 (Venous) 30 mmol/L (23-28); O2 Sat (Venous) 91 %; TCO2 (Venous) 27 mmol/L (24-29); pCO2 (Venous) 55 mmHg (41-51); pH (Venous) 7.34 (7.31-7.41); pO2 (Venous) 63 mmHg
[2024-12-22 23:30] LABS: Abs Immature Grans 0.04 10^3/uL (0.0-0.06); Absolute Basophil Count 0.03 10^3/uL (0.0-0.2); Absolute Eosinophil Count 0.15 10^3/uL (0.0-0.7); Absolute Lymphocyte Count 1.31 10^3/uL (1.2-3.4); Absolute Monocyte Count 0.41 10^3/uL (0.1-0.8); Absolute Neutrophil Count 6.32 10^3/uL (1.2-6.7); Basophils % 0.4 %; Eosinophils % 1.8 %; HCT 42.9 % (36.0-46.0); HGB 13.2 g/dL (11.2-15.7); Immature Grans % 0.5 %; Lymphocytes % 15.9 %; MCH 28.1 pg (27.0-33.0); MCHC 30.8 % (32.0-36.0); MCV 91 fL (80-95); MPV 9.8 fL (8.0-11.0); Neutrophils % 76.4 %; Platelet Count 141 10^3/uL (130-400); RDW 17.1 % (11.7-14.6); RDW-SD 57.6 fL; WBC 8.26 10^3/uL (4.4-10.8)
[2024-12-22 23:40] LABS: Anion Gap 4.2 mmol/L (3-11); BUN 15 mg/dL (7-18); CO2 31.8 mmol/L (21.0-32.0); CREATININE 0.9 mg/dL (0.55-1.02); Chloride 102 mmol/L (98-107); Estimated GFR 77.88 (mL/min/1.73m2); Glucose 289 mg/dL (74-106); Potassium 3.2 mmol/L (3.5-5.1); Sodium 138 mmol/L (136-145)
[2024-12-22 23:59] LABS: VALPROIC ACID 49.2 ug/mL
[2024-12-23 04:30] VITALS: PULSE 84; O2SAT 95
[2024-12-23 07:00] VITALS: O2SAT 94
--- NOTE | 2024-12-23 07:57 | ED.PROG_ITS ---
Date of service: 12/23/24 Time of Service: 08:08 Medical Decision Making Years and from off going provider. Patient is currently pending inpatient voluntary psychiatric placement for suicidal ideation. Patient does have a history of COPD but is noncompliant with treatment. She does use oxygen at nighttime. Evaluated by [facility]. No changes in plan. still pending placement. There is some concern re- her hygeine. she was offered a shower today. skin breakdown noted in panus and under breasts. barrier cream provided. will check sugars and give sliding scale as needed. Quality:[facility] Health Related Social Needs: No Data to Display Discharge Plan Discharge Details Chief Complaint: PsychEval Primary Care Provider: BRYCE SMITH ED Provider: Jenni Colindres Home Meds and New Rx's Prescriptions: No Action (DME) Oxygen Tank See Rx Instructions .Route Qty: 1 0RF Rx Instructions: 2LPM with exertion pregabalin [Lyrica] 50 mg capsule 50 mg PO BID Patient Comments: prescribed by Bryce Smith, PCP ipratropium-albuterol 0.5 mg-3 mg(2.5 mg base)/3 mL solution for nebulization 3 ml UPD Q4H PRN PRN (Reason: shortness of breath or wheezing) Qty: 540 12RF azithromycin 250 mg tablet 250 mg PO DAILY Qty: 90 4RF Jardiance 25 mg tablet 25 mg PO DAILY Dulera 200-5 mcg/actuation HFA aerosol inhaler 2 puff inhalation BID Qty: 13 12RF Rx Instructions: Rinse mouth after use Spiriva Respimat 2.5 mcg/actuation mist 2 puff inhalation DAILY Qty: 4 12RF albuterol sulfate [Proventil HFA] 90 mcg/actuation HFA aerosol inhaler 2 puff inhalation Q6H PRN (Reason: shortness of breath or wheezing) Qty: 8.5 12RF buspirone 30 mg tablet 30 mg PO BID Patient Comments: reports she is taking 60mg BID cyclobenzaprine 10 mg tablet 10 mg PO BID PRN (Reason: muscle spasm) omeprazole 20 mg capsule,delayed release(DR/EC) 20 mg PO DAILY lisinopril 20 mg Tablet 20 mg PO DAILY divalproex [Depakote] 500 mg Tablet,Delayed Release (Dr/Ec) 1,000 mg PO QHS risperidone [Risperdal] 2 mg Tablet 6 mg PO HS spironolactone 25 mg Tablet 25 mg PO DAILY Qty: 30 0RF escitalopram oxalate 20 mg tablet 20 mg PO DAILY Patient Comments: TAKE 1 TABLET BY MOUTH DAILY albuterol sulfate 2.5 mg /3 mL (0.083 %) solution for nebulization 2.5 mg inhalation Q4H PRNQty: 90 0RF atomoxetine 40 mg capsule 80 mg PO DAILY Patient Comments: TAKE two CAPSULE BY MOUTH EVERY MORNING melatonin 10 mg capsule 10 mg PO HS PRN prazosin 5 mg capsule 10 mg PO QHS Patient Comments: TAKE TWO CAPSULES BY MOUTH EVERY EVENING AT BEDTIME ondansetron 4 mg tablet,disintegrating 4 mg PO Q8H PRN (Reason: nausea and vomiting) Qty: 30 0RF ibuprofen 800 mg tablet 800 mg PO BID PRN Patient Comments: TAKE ONE TABLET BY MOUTH TWICE A DAY NEEDED furosemide [Lasix] 20 mg tablet 20 mg PO DAILY Qty: 14 0RF
[2024-12-23 08:19] LABS: *AMPHETAMINES SCREEN URINE Negative (Negative); *BARBITURATES SCREEN URINE Negative (Negative); *BENZODIAZEPINES SCREEN URINE Negative (Negative); Cannabinoids THC Positive (Negative); Cocaine Screen,Urine Negative (Negative); METHADONE URINE SCREEN Negative (Negative); OPIATES URINE SCREEN Negative (Negative)
[2024-12-23 08:20] LABS: Tricyclic Antidepressants Negative (Negative)
[2024-12-23] MEDS: Pregabalin 50 MG CAP PO (08:23)
[2024-12-23] MEDS: Empaglifozin 25 MG TAB PO (08:23)
[2024-12-23] MEDS: Spironolactone 25 MG TAB PO (08:23)
[2024-12-23] MEDS: busPIRone 15 MG TAB 30 MG PO (08:23)
[2024-12-23] MEDS: Lisinopril 20 MG TAB PO (08:23)
[2024-12-23 08:32] VITALS: BP 145/87; PULSE 100; RESP 18; TEMP 36.3; O2SAT 91
--- NOTE | 2024-12-23 09:08 | PDOC.CMSAFE ---
Date of service: 12/23/24 Time of Service: 09:09 Care Management Safety Plan Status Status: Voluntary Reason for Wait Reason for Wait: Inpatient Admission Safety Plan Safety Plan: VOLUNTARY FOR INPATIENT PSYCHIATRIC STABILIZATION.? Patient is appropriate in all interactions since arriving at [facility]; Pt has demonstrated appropriate coping and communication skills, has articulated his or her needs and concerns and is fully engaged during staff interactions. Safety plan has been established with patient, and care team, to adhere to patient goals, identify restrictions based on behavioral status, address nutrition, and determine allowed personal belongings, tools for hygiene and personal care. Determine level of activity including ambulation, level of supervision, visitors, and determine privileges based on behaviors and level of engagement by pt. 1. Will remain on suicide precautions, in paper clothes 2. Will remain in Zone B under direct supervision of one-on-one staff at all times provided by [employer]; MARLEE, FIELD AGENT camera operator. 3. May have paper cups, plates, finger foods as well as a cardboard spoon with which to eat meals. 4. Follow [facility] Management of the Admitted Behavioral Health Patient policy. 5. Shower available in Zone B without restriction. 6. Personal belongings-soft items permitted at RN discretion. 7. Visitors- at RN discretion. 8. Activities: soft cart items approved per RN discretion. 9.? Bathroom available in Zone B without restriction. 10. Phone: limited to [facility] cordless phone at RN discretion. Due to VOLUNTARY status, if patient wishes to leave [facility], staff will contact [facility] Crisis Screener ([phone]) and Dx Board Operator ([phone]) as soon as possible. In the event of elopement, notify [facility] Police ([phone]). Patient is currently voluntarily at [facility] and seeking inpatient admission when a bed becomes available. [facility] Frontline Creping Machine Operator will continue seeking placement. Please contact the Dx Board Operator ([phone]) and [facility] Creping Machine Operator ([phone]) for any needed changes in the Safety Plan. Safety plan has been provided to interdepartmental care team.
[2024-12-23] MEDS: LORazepam 1 MG TAB 2 MG PO (13:17)
--- NOTE | 2024-12-23 14:44 | W.EDPROG ---
Date of service: 12/23/24 Time of Service: 14:44 Medical Decision Making Patient has been reevaluated by [facility] after requesting to go home. She has agreed to a safety plan. She understands return precautions and has the capacity to make this decision. There is no indication for an EE. Patient discharged. Quality:[facility] Health Related Social Needs: No Data to Display Discharge Plan Disposition Patient Disposition: Home Discharge Details Clinical Impression: Feeling suicidal Primary Care Provider: BRYCE SMITH ED Provider: Jenni Colindres Home Meds and New Rx's Prescriptions: No Action (DME) Oxygen Tank See Rx Instructions .Route Qty: 1 0RF Rx Instructions: 2LPM with exertion pregabalin [Lyrica] 50 mg capsule 50 mg PO BID Patient Comments: prescribed by Bryce Smith PCP ipratropium-albuterol 0.5 mg-3 mg(2.5 mg base)/3 mL solution for nebulization 3 ml UPD Q4H PRN PRN (Reason: shortness of breath or wheezing) Qty: 540 12RF azithromycin 250 mg tablet 250 mg PO DAILY Qty: 90 4RF Jardiance 25 mg tablet 25 mg PO DAILY Dulera 200-5 mcg/actuation HFA aerosol inhaler 2 puff inhalation BID Qty: 13 12RF Rx Instructions: Rinse mouth after use Spiriva Respimat 2.5 mcg/actuation mist 2 puff inhalation DAILY Qty: 4 12RF albuterol sulfate [Proventil HFA] 90 mcg/actuation HFA aerosol inhaler 2 puff inhalation Q6H PRN (Reason: shortness of breath or wheezing) Qty: 8.5 12RF buspirone 30 mg tablet 30 mg PO BID Patient Comments: reports she is taking 60mg BID cyclobenzaprine 10 mg tablet 10 mg PO BID PRN (Reason: muscle spasm) omeprazole 20 mg capsule,delayed release(DR/EC) 20 mg PO DAILY lisinopril 20 mg Tablet 20 mg PO DAILY divalproex [Depakote] 500 mg Tablet,Delayed Release (Dr/Ec) 1,000 mg PO QHS risperidone [Risperdal] 2 mg Tablet 6 mg PO HS spironolactone 25 mg Tablet 25 mg PO DAILY Qty: 30 0RF escitalopram oxalate 20 mg tablet 20 mg PO DAILY Patient Comments: TAKE 1 TABLET BY MOUTH DAILY albuterol sulfate 2.5 mg /3 mL (0.083 %) solution for nebulization 2.5 mg inhalation Q4H PRNQty: 90 0RF atomoxetine 40 mg capsule 80 mg PO DAILY Patient Comments: TAKE two CAPSULE BY MOUTH EVERY MORNING melatonin 10 mg capsule 10 mg PO HS PRN prazosin 5 mg capsule 10 mg PO QHS Patient Comments: TAKE TWO CAPSULES BY MOUTH EVERY EVENING AT BEDTIME ondansetron 4 mg tablet,disintegrating 4 mg PO Q8H PRN (Reason: nausea and vomiting) Qty: 30 0RF ibuprofen 800 mg tablet 800 mg PO BID PRN Patient Comments: TAKE ONE TABLET BY MOUTH TWICE A DAY NEEDED furosemide [Lasix] 20 mg tablet 20 mg PO DAILY Qty: 14 0RF Discharge Instructions Additional Instructions: You have decided to leave the hospital after discussion with [facility] and have signed a safety plan agreement. Please follow your safety plan. Please return to the emergency department if you need emergent care otherwise please follow-up with your behavioral, mental health and primary care team
--- NOTE | 2024-12-23 17:41 | CMDISCH_ITS ---
Date of service: 12/23/24 Time of Service: 17:41 LACE Index Scoring Tool Questions: Length of Stay (in days): 1 Was the patient admitted via the E.D.?: Yes E.D. Visits: 9 Answers: Total Score: 8 Risk of Readmission: Low Risk Care Management Discharge Plan Reason for Hospitalization: Psych Eval Discharge Plan: Safety plan was established with [facility]. Cecilia will discharge home and follow up as discussed with [facility] clinician. [facility] provided transportation. Patient/Family Education Needs: Review established safety plan as directed by [facility], Discuss ask me three. [facility] Health Related Social Needs: No Data to Display
--- NOTE | 2024-12-23 17:41 | PDOC.CMDIS ---
Date of service: 12/23/24 Time of Service: 17:41 LACE Index Scoring Tool Questions: Length of Stay (in days): 1 Was the patient admitted via the E.D.?: Yes E.D. Visits: 9 Answers: Total Score: 8 Risk of Readmission: Low Risk Care Management Discharge Plan Reason for Hospitalization: Psych Eval Discharge Plan: Safety plan was established with [facility]. Cecilia will discharge home and follow up as discussed with [facility] clinician. [facility] provided transportation. Patient/Family Education Needs: Review established safety plan as directed by [facility], Discuss ask me three. [facility] Health Related Social Needs: No Data to Display
--- NOTE | 2024-12-24 11:56 | MHPN_ITS ---
Date of service: 12/23/24 Time of Service: 10:00 PHQ-9 Over the last 2 weeks, how often have you been bothered by any of the following problems? 1. Little interest or pleasure in doing things: several days 2. Feeling down, depressed, or hopeless: more than half the days 3. Trouble falling or staying asleep, or sleeping too much: more than half the days 4. Feeling tired or having little energy: more than half the days 5. Poor appetite or overeating: more than half the days 6. Feeling bad about yourself - or that you are a failure or have let yourself and your family down: more than half the days 7. Trouble concentrating on things, such as reading the newspaper or watching television: more than half the days 8. Moving or speaking so slowly that other people could have noticed? - Or the opposite - being so fidgety or restless that you have been moving around a lot more than usual: not at all 9. Thoughts that you would be better off or of hurting yourself in some way: several days Total score: 14 Source: Developed by Drs. Ronaldo Zamudio, Brandy Mitchell, Luis Amanda and colleagues, with an educational pablo from [employer]. Suicide Severity Rate CSSRS Have you wished you were or wished you could go to sleep and not wake up?: Yes Have you actually had any thoughts of killing yourself?: Yes CSSRS2 Have you been thinking about how you might do this?: No Have you had these thoughts and had some intention of acting on them?: No Have you started to work out or worked out the details of how to kill yourself? Do you intend to carry out this plan?: No CSSRS3 Have you ever done anything, started to do anything or prepared to do anything to end your life?: Yes CSSRS4 Was this within the past three months?: No Screening Score Total Score: 6 Screening: Positive Mental Health Emergency Note Release [facility] release signed:: Yes Reason for Visit Suicidal ideation In the last 2 weeks has the pt presented for ES prior to today?: No Client Information Client is: Adult Outpatient Well Housed: Yes Non Suicidal Self Injury Current: No History: No Safety Risk/Harm to Self or Others Current Ideation to Harm Self or Others: No Risk: Does risk to harm exist?: yes. Risk: Low Risk Duty to warn indicated: No Asssessment/Mental Status Appearance: Other Attitude: Guarded and Friendly Behavior: Other Speech: Soft and Slow Affect: Blunted and Constricted Mood: Sad, Stressed, Depressed and Anxious Thought process: Circumstational Hallucinations: No Delusions: No Attention: Unremarkable Perception: Not impaired Orientation: Fully orientated Memory: Intact Insight: Poor Judgement: Poor Neurovegetative Symptoms Sleep: Decrease Appetitie: Decrease Interests: Decrease Energy: Decrease Libido: Not applicable Substance Use: Other Drug Issues: Other Do you use nicotine?: No Have you used substances in the last 7 days?: yes, daily Additional Issues: Assaultive/Threatening Behavior: No Medical Concerns: No Client engaged in active self harm w/weapon: No Threatening to run away: No Child reported abuse/neglect: No Voluntarily presenting for services: Yes Domestic violence is a concern: No Extreme Psychosis or extreme behavior is present: No Impression Client is extremely emotional and actively suicidal per her verbage and appearance Resources Reosurces reviewed and given:: 988 Plan/Disposition Recommended Disposition: Hospitalization facilities contacted. Plan: Client will remain on Zone B until inpatient placement is found Person reported agreement to plan: Yes Reports/communication Outcome discussed with: ED/Personnel
== END 2024-12-23 15:43 | disposition home or self-care (01) ==
PROVIDERS: Emergency Medicine Emergency Medical Services; Emergency Provider Emergency Medicine; PCP Nurse Practitioner Family
DX: R45.851 Suicidal ideations (principal); J44.9 Chronic obstructive pulmonary disease, unspecified; E78.5 Hyperlipidemia, unspecified; E11.9 Type 2 diabetes mellitus without complications; I10 Essential (primary) hypertension; F17.210 Nicotine dependence, cigarettes, uncomplicated; Z91.148 Patient's other noncompliance with medication regimen for other reason; Z99.81 Dependence on supplemental oxygen; Z79.84 Long term (current) use of oral hypoglycemic drugs
CPT/HCPCS: 00123; 80048; 80307; 82805; 94640; 96127; 99284; 80164; 85025; J7620

== ENCOUNTER 2024-12-27 13:33 | Inpatient (IN) | payer MEDICARE, MEDICAID, SELFPAY ==
[2024-12-27 13:34] VITALS: BP 156/86; PULSE 113; O2SAT 94
--- NOTE | 2024-12-27 13:43 | W.ED.GENAD ---
Discharge Plan Discharge Details Chief Complaint: PsychEval Clinical Impression: Depression with suicidal ideation, Auditory hallucinations Primary Care Provider: BRYCE SMITH ED Provider: Patel Mckinney Home Meds and New Rx's Prescriptions: No Action (DME) Oxygen Tank See Rx Instructions .Route Qty: 1 0RF Rx Instructions: 2LPM with exertion pregabalin [Lyrica] 50 mg capsule 50 mg PO BID Patient Comments: prescribed by JAMES Jennings ipratropium-albuterol 0.5 mg-3 mg(2.5 mg base)/3 mL solution for nebulization 3 ml UPD Q4H PRN PRN (Reason: shortness of breath or wheezing) Qty: 540 12RF azithromycin 250 mg tablet 250 mg PO DAILY Qty: 90 4RF Jardiance 25 mg tablet 25 mg PO DAILY Dulera 200-5 mcg/actuation HFA aerosol inhaler 2 puff inhalation BID Qty: 13 12RF Rx Instructions: Rinse mouth after use Spiriva Respimat 2.5 mcg/actuation mist 2 puff inhalation DAILY Qty: 4 12RF buspirone 30 mg tablet 30 mg PO BID Patient Comments: reports she is taking 60mg BID cyclobenzaprine 10 mg tablet 10 mg PO BID PRN PRN (Reason: muscle spasm) omeprazole 20 mg capsule,delayed release(DR/EC) 20 mg PO DAILY lisinopril 20 mg Tablet 20 mg PO DAILY divalproex [Depakote] 500 mg Tablet,Delayed Release (Dr/Ec) 1,000 mg PO HS risperidone [Risperdal] 2 mg Tablet 6 mg PO HS spironolactone 25 mg Tablet 25 mg PO DAILY Qty: 30 0RF escitalopram oxalate 20 mg tablet 20 mg PO DAILY Patient Comments: TAKE 1 TABLET BY MOUTH DAILY atomoxetine 40 mg capsule 80 mg PO DAILY Patient Comments: TAKE two CAPSULE BY MOUTH EVERY MORNING melatonin 10 mg capsule 10 mg PO HS PRN PRN prazosin 5 mg capsule 10 mg PO QHS Patient Comments: TAKE TWO CAPSULES BY MOUTH EVERY EVENING AT BEDTIME ibuprofen 800 mg tablet 800 mg PO BID PRN PRN Patient Comments: TAKE ONE TABLET BY MOUTH TWICE A DAY NEEDED furosemide [Lasix] 20 mg tablet 20 mg PO DAILY Qty: 14 0RF albuterol sulfate 2.5 mg /3 mL (0.083 %) solution for nebulization 2.5 mg inhalation Q4H PRN PRN albuterol sulfate [Proventil HFA] 90 mcg/actuation HFA aerosol inhaler 2 puff inhalation Q6H PRN PRN (Reason: shortness of breath or wheezing) ondansetron 4 mg tablet,disintegrating 4 mg PO Q8H PRN PRN (Reason: nausea and vomiting) HPI General Date/Time Provider Initiated Documentation: 12/27/24 13:42. HPI Narrative: MDM This is an overall well-appearing tachycardic normothermic 49-year-old female with anxiety depression in the emergency department voluntarily in setting of suicidal ideation. No pressured speech to suggest psychosis. No flight of ideas to suggest schizophrenia. Patient is not altered to suggest anticholinergic toxidrome. She is tachycardic but not markedly hypertensive to suggest sympathomimetic toxidrome. No sonorous respirations normal respiratory effort making my suspicion low for opiate toxidrome. Patient patient heart rate of 113 will obtain labs and reorder home medications. She denies any intentional overdose. Will monitor patient in the ED and have patient screened by [facility]. Patient is not alcoholic to suggest increased risk for withdrawal. Not altered to suggest encephalitis. 2:45 PM Will order the patient's home medications regular diet with a safety tray and interim safety plan. 4:30 PM Patient has not yet been seen by [facility] services. Will sign patient out to oncoming evening provider, Dr. Colindres. HPI This is a 49-year-old female history of depression arriving emergency department via EMS in the setting of suicidal thoughts. She reports that she has not taken any extra medications. She uses marijuana but denies tobacco and illicits. No recent falls. No fevers. No chest pain or shortness of breath. Exam General: Well-appearing in no acute distress speaking in complete sentences. Head: Normocephalic, atraumatic. Eye: Extraocular eye movements intact. No conjunctival injection. No scleral icterus. Ear, nose, mouth, throat: Grossly normal inspection. Normal voice, handling secretions normally. Neck: Trachea midline. Cardiovascular: Well-perfused distal extremities. Respiratory: Nonlabored respiration. Gastrointestinal: Nondistended abdomen. Musculoskeletal: No edema. Moving all 4 extremities spontaneously. Skin: Normal for age and race, grossly normal temperature and turgor. No acute rash. Neurologic: Alert and appropriate, no apparent acute deficits. Psychiatric: Mood and manner are appropriate. Grooming and personal hygiene are appropriate. No pressured speech. No flight of ideas. Endorses auditory hallucinations. Denies homicidal ideation. Endorses suicidal ideation. Related Data Home Medications ?Medication ?Instructions ?Recorded ?Confirmed divalproex 500 mg tablet,delayed 1,000 mg PO HS 01/18/20 12/27/24 release (Depakote) lisinopril 20 mg tablet 20 mg PO DAILY 01/18/20 12/27/24 risperidone 2 mg tablet (Risperdal) 6 mg PO HS 01/18/20 12/27/24 ibuprofen 800 mg tablet 800 mg PO BID PRN PRN 11/20/22 12/27/24 Oxygen #1 ea 12/13/22 12/27/24 spironolactone 25 mg tablet 25 mg PO DAILY #30 tabs 05/06/23 12/27/24 furosemide 20 mg tablet (Lasix) 20 mg PO DAILY #14 tabs 06/13/23 12/27/24 empagliflozin 25 mg tablet 25 mg PO DAILY 12/15/23 12/27/24 (Jardiance) buspirone 30 mg tablet 30 mg PO BID 02/09/24 12/27/24 cyclobenzaprine 10 mg tablet 10 mg PO BID PRN PRN muscle spasm 02/09/24 12/27/24 omeprazole 20 mg capsule,delayed 20 mg PO DAILY 02/09/24 12/27/24 release escitalopram oxalate 20 mg tablet 20 mg PO DAILY 02/13/24 12/27/24 pregabalin 50 mg capsule (Lyrica) 50 mg PO BID 06/21/24 12/27/24 mometasone-formoterol HFA 200 2 puff inhalation BID #13 grams 08/04/24 12/27/24 mcg-5 mcg/actuation aerosol inhaler (Dulera) tiotropium bromide 2.5 2 puff inhalation DAILY #4 grams 08/04/24 12/27/24 mcg/actuation mist for inhalation (Spiriva Respimat) atomoxetine 40 mg capsule 80 mg PO DAILY 08/19/24 12/27/24 melatonin 10 mg capsule 10 mg PO HS PRN PRN 08/19/24 12/27/24 prazosin 5 mg capsule 10 mg PO QHS 08/20/24 12/27/24 azithromycin 250 mg tablet 250 mg PO DAILY #90 tabs 12/15/24 12/27/24 ipratropium 0.5 mg-albuterol 3 mg 3 ml UPD Q4H PRN PRN shortness of 12/15/24 12/27/24 (2.5 mg base)/3 mL nebulization breath or wheezing #540 mL soln albuterol sulfate 2.5 mg/3 mL 2.5 mg inhalation Q4H PRN PRN 12/27/24 12/27/24 (0.083 %) solution for nebulization albuterol sulfate 90 mcg/actuation 2 puff inhalation Q6H PRN PRN 12/27/24 12/27/24 aerosol inhaler shortness of breath or wheezing ondansetron 4 mg disintegrating 4 mg PO Q8H PRN PRN nausea and 12/27/24 12/27/24 tablet vomiting Previous Rx's ?Medication ?Instructions ?Recorded Oxygen #1 ea 12/13/22 spironolactone 25 mg tablet 25 mg PO DAILY #30 tabs 05/06/23 furosemide 20 mg tablet (Lasix) 20 mg PO DAILY #14 tabs 06/13/23 mometasone-formoterol HFA 200 2 puff inhalation BID #13 grams 08/04/24 mcg-5 mcg/actuation aerosol inhaler (Dulera) tiotropium bromide 2.5 2 puff inhalation DAILY #4 grams 08/04/24 mcg/actuation mist for inhalation (Spiriva Respimat) azithromycin 250 mg tablet 250 mg PO DAILY #90 tabs 12/15/24 ipratropium 0.5 mg-albuterol 3 mg 3 ml UPD Q4H PRN PRN shortness of 12/15/24 (2.5 mg base)/3 mL nebulization breath or wheezing #540 mL soln Allergies Allergy/AdvReac Type Severity Reaction Status Date / Time bee pollen Allergy Hives Verified 12/27/24 13:38 hazelnut Allergy Hives Verified 12/27/24 13:38 peanut Allergy hallucinati Verified 12/27/24 13:38 on tree nut Allergy hallucinati Verified 12/27/24 13:38 on gabapentin AdvReac Severe vomiting Verified 12/27/24 13:38 varenicline (From Chantix) AdvReac Intermediate depression Verified 12/27/24 13:38 amoxicillin AdvReac Nausea Verified 12/27/24 13:38 fluoxetine (From Prozac) AdvReac Nausea Verified 12/27/24 13:38 trazodone AdvReac Weight gain Verified 12/27/24 13:38 abelox Allergy Hives Uncoded 12/27/24 13:38 General Stated Complaint: PsychEval ZACK: 2 Course Vital Signs Vital signs: Vital Signs Pulse 113 H 12/27/24 13:34 Blood Pressure 156/86 H 12/27/24 13:34 Pulse Oximetry 94 12/27/24 13:34 Pulse 113 H 12/27/24 13:34 Blood Pressure 156/86 H 12/27/24 13:34 Pulse Oximetry 94 12/27/24 13:34 Medical Decision Making Quality:SDOH Health Related Social Needs: Health related social needs problems related to housing/economic circumstances (Z59.89), feeling lonely/isolated (Z60.8) PFSH All Active Problems (Updated 12/27/24 @ 14:12 by Patel Mckinney MD) Auditory hallucinations (Acute) Depression with suicidal ideation (Acute) Feeling suicidal (Acute) CAP (community acquired pneumonia) (Acute) Asthma exacerbation (Acute) Spinal stenosis (Acute) Heart failure (Acute) Migraine (Chronic) Nicotine dependence, cigarettes, uncomplicated (Acute) Vitamin D deficiency (Acute) Tobacco abuse (Chronic) Medical History Left ventricular hypertrophy Obesity hypoventilation syndrome Schizoaffective disorder Post traumatic stress disorder Hyperlipidemia Asthma H/O suicide attempt ADHD Anxiety Bipolar disorder Non-insulin dependent diabetes mellitus Obesity (BMI 30.0-34.9) Hypertension Surgical History Status post bilateral salpingectomy S/P cholecystectomy Family History Other Adopted Social History Smoking/Tobacco Use Status: Current every day Tobacco Type: cigarettes Smoking packs per day: 0.25 Smoking cigarettes per day: 5.0 Years smoked: 40 Smoking pack-years: 10.00 Tobacco: How many years used: 40 Smoking risk assessment performed?: Yes Alcohol Intake: never Drug use: Occasionally Substance use type: marijuana Details: smokes marijuana about once per month 01/11/24 Housing: apartment Do you feel safe at home: Yes Do you feel safe in your relationship?: Yes Additional Social history: Lives with on [address] in [place] [facility]. She is disabled with her medical and mental health conditions. 22 year old daughter in [place].
[2024-12-27 14:35] VITALS: RESP 22
[2024-12-27 14:36] VITALS: BP 224/103; PULSE 108; RESP 13; TEMP 37.3; O2SAT 90
[2024-12-27 14:52] LABS: Abs Immature Grans 0.06 10^3/uL (0.0-0.06); Absolute Basophil Count 0.04 10^3/uL (0.0-0.2); Absolute Eosinophil Count 0.02 10^3/uL (0.0-0.7); Absolute Lymphocyte Count 0.89 10^3/uL (1.2-3.4); Absolute Monocyte Count 0.57 10^3/uL (0.1-0.8); Absolute Neutrophil Count 5.14 10^3/uL (1.2-6.7); Basophils % 0.6 %; Eosinophils % 0.3 %; HCT 43.4 % (36.0-46.0); HGB 13.7 g/dL (11.2-15.7); Immature Grans % 0.9 %; Lymphocytes % 13.2 %; MCH 28.2 pg (27.0-33.0); MCHC 31.6 % (32.0-36.0); MCV 89 fL (80-95); Monocytes % 8.5 %; Neutrophils % 76.5 %; Platelet Count 227 10^3/uL (130-400); RBC 4.86 10^6/uL (3.93-5.22); RDW 16.4 % (11.7-14.6); WBC 6.72 10^3/uL (4.4-10.8)
[2024-12-27 15:01] LABS: Anion Gap 7.2 mmol/L (3-11); BUN 11 mg/dL (7-18); CO2 28.8 mmol/L (21.0-32.0); CREATININE 0.9 mg/dL (0.55-1.02); Calcium 8.9 mg/dL (8.5-10.1); Chloride 102 mmol/L (98-107); Estimated GFR 77.88 (mL/min/1.73m2); Glucose 283 mg/dL (74-106); Potassium 3.8 mmol/L (3.5-5.1); Sodium 138 mmol/L (136-145)
[2024-12-27 15:12] LABS: HCG Qual (Serum) Negative
[2024-12-27 15:16] LABS: Acetaminophen < 2 ug/mL (10-30); Salicylate 4.3 mg/dL (<2.8)
[2024-12-27 15:37] LABS: *AMPHETAMINES SCREEN URINE Negative (Negative); *BARBITURATES SCREEN URINE Negative (Negative); *BENZODIAZEPINES SCREEN URINE Negative (Negative); Cannabinoids THC Positive (Negative); Cocaine Screen,Urine Negative (Negative); METHADONE URINE SCREEN Negative (Negative); OPIATES URINE SCREEN Negative (Negative)
[2024-12-27 15:38] LABS: Tricyclic Antidepressants Negative (Negative)
[2024-12-27 17:42] VITALS: BP 178/109; PULSE 109; RESP 19; TEMP 37.6; O2SAT 91
[2024-12-27 17:53] VITALS: RESP 20; O2SAT 91
[2024-12-27] MEDS: Albuterol 2.5 MG/3 ML INH SOLN VIAL IH (17:53)
--- NOTE | 2024-12-27 17:53 | NUR.NOTE ---
Pt receiving neb treatment in the [facility].
[2024-12-27] MEDS: busPIRone 15 MG TAB 30 MG PO (17:58)
--- NOTE | 2024-12-27 18:16 | ED.PROG_ITS ---
Date of service: 12/27/24 Time of Service: 18:16 Medical Decision Making Care assumed from off going provider. Patient is a 49-year-old female with multiple medical comorbidities presenting for suicidal ideation. Patient has had multiple presentations of same. Will contact mental health services for evaluation and disposition plan. Quality:SDOH Health Related Social Needs: Health related social needs problems related to housin g/economic circumstances (Z59.89), feeling lonely/isolated (Z60.8) Discharge Plan Discharge Details Chief Complaint: PsychEval Clinical Impression: Depression with suicidal ideation, Auditory hallucinations Primary Care Provider: BRYCE SMITH ED Provider: Jenni Colindres Home Meds and New Rx's Prescriptions: No Action (DME) Oxygen Tank See Rx Instructions .Route Qty: 1 0RF Rx Instructions: 2LPM with exertion pregabalin [Lyrica] 50 mg capsule 50 mg PO BID Patient Comments: prescribed by Bryce Smith, PCP ipratropium-albuterol 0.5 mg-3 mg(2.5 mg base)/3 mL solution for nebulization 3 ml UPD Q4H PRN PRN (Reason: shortness of breath or wheezing) Qty: 540 12RF azithromycin 250 mg tablet 250 mg PO DAILY Qty: 90 4RF Jardiance 25 mg tablet 25 mg PO DAILY Dulera 200-5 mcg/actuation HFA aerosol inhaler 2 puff inhalation BID Qty: 13 12RF Rx Instructions: Rinse mouth after use Spiriva Respimat 2.5 mcg/actuation mist 2 puff inhalation DAILY Qty: 4 12RF buspirone 30 mg tablet 30 mg PO BID Patient Comments: reports she is taking 60mg BID cyclobenzaprine 10 mg tablet 10 mg PO BID PRN PRN (Reason: muscle spasm) omeprazole 20 mg capsule,delayed release(DR/EC) 20 mg PO DAILY lisinopril 20 mg Tablet 20 mg PO DAILY divalproex [Depakote] 500 mg Tablet,Delayed Release (Dr/Ec) 1,000 mg PO HS risperidone [Risperdal] 2 mg Tablet 6 mg PO HS spironolactone 25 mg Tablet 25 mg PO DAILY Qty: 30 0RF escitalopram oxalate 20 mg tablet 20 mg PO DAILY Patient Comments: TAKE 1 TABLET BY MOUTH DAILY atomoxetine 40 mg capsule 80 mg PO DAILY Patient Comments: TAKE two CAPSULE BY MOUTH EVERY MORNING melatonin 10 mg capsule 10 mg PO HS PRN PRN prazosin 5 mg capsule 10 mg PO QHS Patient Comments: TAKE TWO CAPSULES BY MOUTH EVERY EVENING AT BEDTIME ibuprofen 800 mg tablet 800 mg PO BID PRN PRN Patient Comments: TAKE ONE TABLET BY MOUTH TWICE A DAY NEEDED furosemide [Lasix] 20 mg tablet 20 mg PO DAILY Qty: 14 0RF albuterol sulfate 2.5 mg /3 mL (0.083 %) solution for nebulization 2.5 mg inhalation Q4H PRN PRN albuterol sulfate [Proventil HFA] 90 mcg/actuation HFA aerosol inhaler 2 puff inhalation Q6H PRN PRN (Reason: shortness of breath or wheezing) ondansetron 4 mg tablet,disintegrating 4 mg PO Q8H PRN PRN (Reason: nausea and vomiting)
--- NOTE | 2024-12-27 19:11 | PDOC.CMSAFE ---
Date of service: 12/27/24 Time of Service: 19:11 Care Management Safety Plan Status Status: Voluntary Reason for Wait Reason for Wait: Inpatient Admission Safety Plan Safety Plan: VOLUNTARY FOR INPATIENT PSYCHIATRIC STABILIZATION.? Patient is appropriate in all interactions since arriving at [facility]; Pt has demonstrated appropriate coping and communication skills, has articulated his or her needs and concerns and is fully engaged during staff interactions. Safety plan has been established with patient, and care team, to adhere to patient goals, identify restrictions based on behavioral status, address nutrition, and determine allowed personal belongings, tools for hygiene and personal care. Determine level of activity including ambulation, level of supervision, visitors, and determine privileges based on behaviors and level of engagement by pt. VOLUNTARY SAFETY PLAN: 1. Will remain on suicide precautions, in paper clothes 2. Will remain in Zone B under direct supervision of one-on-one staff at all times provided by [employer]; MARLEE, TECHNOLOGY INTERN corn miller. 3. May have paper cups, plates, finger foods as well as a cardboard spoon with which to eat meals. 4. Follow [facility] Management of the Admitted Behavioral Health Patient policy. 5. Shower available in Zone B without restriction. 6. Personal belongings-soft items permitted at RN discretion. 7. Visitors- at RN discretion. 8. Activities: soft cart items approved per RN discretion. 9.? Bathroom available in Zone B without restriction. 10. Phone: limited to [facility] cordless phone at RN discretion. Due to VOLUNTARY status, if patient wishes to leave [facility], staff will contact [facility] Crisis Screener ([phone]) and [employer] ([phone]) as soon as possible. In the event of elopement, notify [facility] Police ([phone]). Patient is currently voluntarily at [facility] and seeking inpatient admission when a bed becomes available. [facility] Frontline Sports Marketing Specialist will continue seeking placement. Please contact the [employer] ([phone]) and [facility] Sports Marketing Specialist ([phone]) for any needed changes in the Safety Plan. Safety plan has been provided to interdepartmental care team.
[2024-12-27] MEDS: risperiDONE 1 MG TAB 6 MG PO (20:13)
[2024-12-27] MEDS: Budesonide/Formoterol 160/4.5 6 GM 60 PUFF INH IH (20:15)
[2024-12-27] MEDS: Pregabalin 50 MG CAP PO (20:15)
[2024-12-27] MEDS: Prazosin 5 MG CAP 10 MG PO (20:15)
[2024-12-27] MEDS: Melatonin 3 MG TAB 9 MG PO (20:21)
[2024-12-27] MEDS: Divalproex 500 MG TABEC 1000 MG PO (20:21)
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
--- NOTE | 2024-12-28 06:55 | ED.PROG_ITS ---
Date of service: 12/28/24 Time of Service: 07:00 Medical Decision Making This is a 49-year-old female patient with a past medical history significant for asthma, ERIK on CPAP and oxygen at night, history of hypertension, boarding in our emergency department suicidal ideation. She was medically cleared prior to my taking over her care, awaiting placement and under review by [facility]. The patient was transferred back to [facility] after sleeping in one of our oxygen capable rooms, and unfortunately was noted to desaturate while resting in her bed. For this reason the decision was made that the patient needed to be up and out of bed during the daytime when she is unable to be on her CPAP. We will try to facilitate for the patient to be moved back for a CPAP and oxygen nap if spaces available in the main ED. Otherwise, the patient has had no behavioral concerns, has been taking her medications as prescribed, and has not required any chemical or physical restraint. She was signed out to the oncoming provider prior to final disposition. Mel Mallory MD Medical Records Medical records reviewed: Yes I reviewed the patient's medical records. Lab Data Lab results reviewed: Yes I reviewed the patient's lab results. Quality:SDOH Health Related Social Needs: Health related social needs problems related to housin g/economic circumstances (Z59.89), feeling lonely/isolated (Z60.8) Discharge Plan Discharge Details Chief Complaint: PsychEval Clinical Impression: Depression with suicidal ideation, Auditory hallucinations Primary Care Provider: BRYCE SMITH ED Provider: Mel Mallory Home Meds and New Rx's Prescriptions: No Action (DME) Oxygen Tank See Rx Instructions .Route Qty: 1 0RF Rx Instructions: 2LPM with exertion pregabalin [Lyrica] 50 mg capsule 50 mg PO BID Patient Comments: prescribed by JAMES Jennings ipratropium-albuterol 0.5 mg-3 mg(2.5 mg base)/3 mL solution for nebulization 3 ml UPD Q4H PRN PRN (Reason: shortness of breath or wheezing) Qty: 540 12RF azithromycin 250 mg tablet 250 mg PO DAILY Qty: 90 4RF Jardiance 25 mg tablet 25 mg PO DAILY Dulera 200-5 mcg/actuation HFA aerosol inhaler 2 puff inhalation BID Qty: 13 12RF Rx Instructions: Rinse mouth after use Spiriva Respimat 2.5 mcg/actuation mist 2 puff inhalation DAILY Qty: 4 12RF buspirone 30 mg tablet 30 mg PO BID Patient Comments: reports she is taking 60mg BID cyclobenzaprine 10 mg tablet 10 mg PO BID PRN PRN (Reason: muscle spasm) omeprazole 20 mg capsule,delayed release(DR/EC) 20 mg PO DAILY lisinopril 20 mg Tablet 20 mg PO DAILY divalproex [Depakote] 500 mg Tablet,Delayed Release (Dr/Ec) 1,000 mg PO HS risperidone [Risperdal] 2 mg Tablet 6 mg PO HS spironolactone 25 mg Tablet 25 mg PO DAILY Qty: 30 0RF escitalopram oxalate 20 mg tablet 20 mg PO DAILY Patient Comments: TAKE 1 TABLET BY MOUTH DAILY atomoxetine 40 mg capsule 80 mg PO DAILY Patient Comments: TAKE two CAPSULE BY MOUTH EVERY MORNING melatonin 10 mg capsule 10 mg PO HS PRN PRN prazosin 5 mg capsule 10 mg PO QHS Patient Comments: TAKE TWO CAPSULES BY MOUTH EVERY EVENING AT BEDTIME ibuprofen 800 mg tablet 800 mg PO BID PRN PRN Patient Comments: TAKE ONE TABLET BY MOUTH TWICE A DAY NEEDED furosemide [Lasix] 20 mg tablet 20 mg PO DAILY Qty: 14 0RF albuterol sulfate 2.5 mg /3 mL (0.083 %) solution for nebulization 2.5 mg inhalation Q4H PRN PRN albuterol sulfate [Proventil HFA] 90 mcg/actuation HFA aerosol inhaler 2 puff inhalation Q6H PRN PRN (Reason: shortness of breath or wheezing) ondansetron 4 mg tablet,disintegrating 4 mg PO Q8H PRN PRN (Reason: nausea and vomiting)
--- NOTE | 2024-12-28 07:07 | W.EDPROG ---
Date of service: 12/27/24 Time of Service: 23:00 Medical Decision Making This patient was signed out to me. Please see previous notes for H&P and initial eval. In brief, 49yo F here voluntarily for SI, medically cleared, pending placement. Overnight no acute events. Signed out to oncoming physician, plan as above. Quality:SDOH Health Related Social Needs: Health related social needs problems related to housing/economic circumstances (Z59.89), feeling lonely/isolated (Z60.8) Discharge Plan Discharge Details Chief Complaint: PsychEval Clinical Impression: Depression with suicidal ideation, Auditory hallucinations Primary Care Provider: BRYCE SMITH ED Provider: Mel Mallory Home Meds and New Rx's Prescriptions: No Action (DME) Oxygen Tank See Rx Instructions .Route Qty: 1 0RF Rx Instructions: 2LPM with exertion pregabalin [Lyrica] 50 mg capsule 50 mg PO BID Patient Comments: prescribed by Bryce Smith, PCP ipratropium-albuterol 0.5 mg-3 mg(2.5 mg base)/3 mL solution for nebulization 3 ml UPD Q4H PRN PRN (Reason: shortness of breath or wheezing) Qty: 540 12RF azithromycin 250 mg tablet 250 mg PO DAILY Qty: 90 4RF Jardiance 25 mg tablet 25 mg PO DAILY Dulera 200-5 mcg/actuation HFA aerosol inhaler 2 puff inhalation BID Qty: 13 12RF Rx Instructions: Rinse mouth after use Spiriva Respimat 2.5 mcg/actuation mist 2 puff inhalation DAILY Qty: 4 12RF buspirone 30 mg tablet 30 mg PO BID Patient Comments: reports she is taking 60mg BID cyclobenzaprine 10 mg tablet 10 mg PO BID PRN PRN (Reason: muscle spasm) omeprazole 20 mg capsule,delayed release(DR/EC) 20 mg PO DAILY lisinopril 20 mg Tablet 20 mg PO DAILY divalproex [Depakote] 500 mg Tablet,Delayed Release (Dr/Ec) 1,000 mg PO HS risperidone [Risperdal] 2 mg Tablet 6 mg PO HS spironolactone 25 mg Tablet 25 mg PO DAILY Qty: 30 0RF escitalopram oxalate 20 mg tablet 20 mg PO DAILY Patient Comments: TAKE 1 TABLET BY MOUTH DAILY atomoxetine 40 mg capsule 80 mg PO DAILY Patient Comments: TAKE two CAPSULE BY MOUTH EVERY MORNING melatonin 10 mg capsule 10 mg PO HS PRN PRN prazosin 5 mg capsule 10 mg PO QHS Patient Comments: TAKE TWO CAPSULES BY MOUTH EVERY EVENING AT BEDTIME ibuprofen 800 mg tablet 800 mg PO BID PRN PRN Patient Comments: TAKE ONE TABLET BY MOUTH TWICE A DAY NEEDED furosemide [Lasix] 20 mg tablet 20 mg PO DAILY Qty: 14 0RF albuterol sulfate 2.5 mg /3 mL (0.083 %) solution for nebulization 2.5 mg inhalation Q4H PRN PRN albuterol sulfate [Proventil HFA] 90 mcg/actuation HFA aerosol inhaler 2 puff inhalation Q6H PRN PRN (Reason: shortness of breath or wheezing) ondansetron 4 mg tablet,disintegrating 4 mg PO Q8H PRN PRN (Reason: nausea and vomiting)
--- NOTE | 2024-12-28 08:25 | PDOC.CMSAFE ---
Date of service: 12/28/24 Time of Service: 08:25 Care Management Safety Plan Status Status: Voluntary Reason for Wait Reason for Wait: Inpatient Admission Safety Plan Safety Plan: VOLUNTARY FOR INPATIENT PSYCHIATRIC STABILIZATION.? Patient is appropriate in all interactions since arriving at [facility]; Pt has demonstrated appropriate coping and communication skills, has articulated his or her needs and concerns and is fully engaged during staff interactions. Safety plan has been established with patient, and care team, to adhere to patient goals, identify restrictions based on behavioral status, address nutrition, and determine allowed personal belongings, tools for hygiene and personal care. Determine level of activity including ambulation, level of supervision, visitors, and determine privileges based on behaviors and level of engagement by pt. VOLUNTARY SAFETY PLAN: 1. Will remain on suicide precautions, in paper clothes 2. Will remain in Zone B under direct supervision of one-on-one staff at all times provided by [employer]; MARLEE, BAIT TIER resistance welding machine operator. 3. May have paper cups, plates, finger foods as well as a cardboard spoon with which to eat meals. 4. Follow [facility] Management of the Admitted Behavioral Health Patient policy. 5. Shower available in Zone B without restriction. 6. Personal belongings-soft items permitted at RN discretion. 7. Visitors- at RN discretion. 8. Activities: soft cart items approved per RN discretion. 9.? Bathroom available in Zone B without restriction. 10. Phone: limited to [facility] cordless phone at RN discretion. Due to VOLUNTARY status, if patient wishes to leave [facility], staff will contact [facility] Crisis Screener ([phone]) and [employer] Utility Worker ([phone]) as soon as possible. In the event of elopement, notify [facility] Police ([phone]). Patient is currently voluntarily at [facility] and seeking inpatient admission when a bed becomes available. [facility] Frontline Assembly Line Supervisor will continue seeking placement. Please contact the [employer] Utility Worker ([phone]) and [facility] Assembly Line Supervisor ([phone]) for any needed changes in the Safety Plan. Safety plan has been provided to interdepartmental care team.
[2024-12-28 08:59] VITALS: BP 177/94; PULSE 107; RESP 22; TEMP 37.6; O2SAT 85
[2024-12-28] MEDS: Escitalopram 20 MG TAB PO (09:26)
[2024-12-28] MEDS: busPIRone 15 MG TAB 30 MG PO ×2 (09:27→20:20)
[2024-12-28] MEDS: Omeprazole 20 MG CAPCR PO (09:27)
[2024-12-28] MEDS: Empaglifozin 25 MG TAB PO (09:27)
[2024-12-28] MEDS: Lisinopril 10 MG TAB 20 MG PO (09:27)
[2024-12-28] MEDS: Pregabalin 50 MG CAP PO ×2 (09:27→20:20)
[2024-12-28] MEDS: Furosemide 20 MG TAB PO (09:27)
[2024-12-28] MEDS: Spironolactone 25 MG TAB PO (09:27)
[2024-12-28] MEDS: Budesonide/Formoterol 160/4.5 6 GM 60 PUFF INH IH ×2 (09:28→20:19)
[2024-12-28 10:04] VITALS: PULSE 99; O2SAT 90
[2024-12-28] MEDS: Tiotropium Bromide-Respimat 10 PUFF INH 2 PUFF IH (10:59)
--- NOTE | 2024-12-28 13:08 | PDOC.MHPN2 ---
Date of service: 12/28/24 Time of Service: 10:30 PHQ-9 Over the last 2 weeks, how often have you been bothered by any of the following problems? 1. Little interest or pleasure in doing things: more than half the days 2. Feeling down, depressed, or hopeless: more than half the days 3. Trouble falling or staying asleep, or sleeping too much: several days 4. Feeling tired or having little energy: more than half the days 5. Poor appetite or overeating: several days 6. Feeling bad about yourself - or that you are a failure or have let yourself and your family down: several days 7. Trouble concentrating on things, such as reading the newspaper or watching television: several days 8. Moving or speaking so slowly that other people could have noticed? - Or the opposite - being so fidgety or restless that you have been moving around a lot more than usual: not at all 9. Thoughts that you would be better off or of hurting yourself in some way: several days Total score: 11 Source: Developed by Drs. Ronaldo Zamudio, Brandy Mitchell, Luis Amanda and colleagues, with an educational pablo from [employer]. Suicide Severity Rate CSSRS Have you wished you were or wished you could go to sleep and not wake up?: No Have you actually had any thoughts of killing yourself?: Yes CSSRS2 Have you been thinking about how you might do this?: Yes Have you had these thoughts and had some intention of acting on them?: No Have you started to work out or worked out the details of how to kill yourself? Do you intend to carry out this plan?: No CSSRS3 Have you ever done anything, started to do anything or prepared to do anything to end your life?: Yes CSSRS4 Was this within the past three months?: No Screening Score Total Score: 4 Screening: Positive Mental Health Emergency Note Release [facility] release signed:: Yes Reason for Visit client is experiencing SI and lack of sleep In the last 2 weeks has the pt presented for ES prior to today?: Yes, presented at Client Information Client is: Adult Outpatient Well Housed: No,status: Not homeless, Unstable housing Non Suicidal Self Injury Current: No History: yes, taking too much medication at one time with the intentions of overdosing Safety Risk/Harm to Self or Others Current Ideation to Harm Self or Others: No Risk: Does risk to harm exist?: yes. Risk: Moderate Risk Duty to warn indicated: No Asssessment/Mental Status Appearance: Other Attitude: Cooperative, Guarded and Friendly Behavior: Unremarkable Speech: Soft and Slow Affect: Cogruent with mood Mood: Sad, Stressed, Depressed and Anxious Thought process: Circumstational Hallucinations: yes, Auditory Delusions: No Attention: Unremarkable Perception: Not impaired Orientation: Fully orientated Memory: Intact Insight: Fair Judgement: Poor Neurovegetative Symptoms Sleep: Decrease Appetitie: Disordered Interests: Decrease Energy: Decrease Libido: Not applicable Substance Use: Other Drug Issues: Other Do you use nicotine?: Yes Have you used substances in the last 7 days?: yes, marijuana/daily Additional Issues: Assaultive/Threatening Behavior: No Medical Concerns: No Client engaged in active self harm w/weapon: No Threatening to run away: No Child reported abuse/neglect: No Voluntarily presenting for services: Yes Domestic violence is a concern: No Extreme Psychosis or extreme behavior is present: No Impression Client is suffering from lack of sleep and suicidal ideation. She is alert, focused, and states that she wants to go inpatient to treat her mental wellbeing and figure out her future possibly on her own. Resources [facility] reviewed and given:: [id number] Plan/Disposition Recommended Disposition: Hospitalization facilities contacted. Plan: Client will stay on Zone B until and inpatient bed becomes available. Person reported agreement to plan: Yes Reports/communication Outcome discussed with: ED/Personnel
[2024-12-28] MEDS: Prazosin 5 MG CAP 10 MG PO (20:20)
[2024-12-28] MEDS: risperiDONE 1 MG TAB 6 MG PO (20:20)
[2024-12-28] MEDS: Melatonin 3 MG TAB 9 MG PO (20:20)
[2024-12-28] MEDS: Divalproex 500 MG TABEC 1000 MG PO (20:29)
--- NOTE | 2024-12-28 23:08 | ED.PROG_ITS ---
Date of service: 12/28/24 Time of Service: 23:08 Medical Decision Making Patient remains voluntary for psychiatric admission for depression and suicidal ideation. [facility] to reevaluate in the morning for possible transfer and admission there. Patient to be on oxygen at night and whenever sleeping. Other ramires, no issues on my shift. Quality:SDOH Health Related Social Needs: Health related social needs problems related to housin g/economic circumstances (Z59.89), feeling lonely/isolated (Z60.8) Discharge Plan Discharge Details Chief Complaint: PsychEval Clinical Impression: Depression with suicidal ideation, Auditory hallucinations Primary Care Provider: BRYCE SMITH ED Provider: Ronaldo Cole [place] Meds and New Rx's Prescriptions: No Action (DME) Oxygen Tank See Rx Instructions .Route Qty: 1 0RF Rx Instructions: 2LPM with exertion pregabalin [Lyrica] 50 mg capsule 50 mg PO BID Patient Comments: prescribed by Bryce Smith, PCP ipratropium-albuterol 0.5 mg-3 mg(2.5 mg base)/3 mL solution for nebulization 3 ml UPD Q4H PRN PRN (Reason: shortness of breath or wheezing) Qty: 540 12RF azithromycin 250 mg tablet 250 mg PO DAILY Qty: 90 4RF Jardiance 25 mg tablet 25 mg PO DAILY Dulera 200-5 mcg/actuation HFA aerosol inhaler 2 puff inhalation BID Qty: 13 12RF Rx Instructions: Rinse mouth after use Spiriva Respimat 2.5 mcg/actuation mist 2 puff inhalation DAILY Qty: 4 12RF buspirone 30 mg tablet 30 mg PO BID Patient Comments: reports she is taking 60mg BID cyclobenzaprine 10 mg tablet 10 mg PO BID PRN PRN (Reason: muscle spasm) omeprazole 20 mg capsule,delayed release(DR/EC) 20 mg PO DAILY lisinopril 20 mg Tablet 20 mg PO DAILY divalproex [Depakote] 500 mg Tablet,Delayed Release (Dr/Ec) 1,000 mg PO HS risperidone [Risperdal] 2 mg Tablet 6 mg PO HS spironolactone 25 mg Tablet 25 mg PO DAILY Qty: 30 0RF escitalopram oxalate 20 mg tablet 20 mg PO DAILY Patient Comments: TAKE 1 TABLET BY MOUTH DAILY atomoxetine 40 mg capsule 80 mg PO DAILY Patient Comments: TAKE two CAPSULE BY MOUTH EVERY MORNING melatonin 10 mg capsule 10 mg PO HS PRN PRN prazosin 5 mg capsule 10 mg PO QHS Patient Comments: TAKE TWO CAPSULES BY MOUTH EVERY EVENING AT BEDTIME ibuprofen 800 mg tablet 800 mg PO BID PRN PRN Patient Comments: TAKE ONE TABLET BY MOUTH TWICE A DAY NEEDED furosemide [Lasix] 20 mg tablet 20 mg PO DAILY Qty: 14 0RF albuterol sulfate 2.5 mg /3 mL (0.083 %) solution for nebulization 2.5 mg inhalation Q4H PRN PRN albuterol sulfate [Proventil HFA] 90 mcg/actuation HFA aerosol inhaler 2 puff inhalation Q6H PRN PRN (Reason: shortness of breath or wheezing) ondansetron 4 mg tablet,disintegrating 4 mg PO Q8H PRN PRN (Reason: nausea and vomiting)
[2024-12-29] VITALS (16 sets, daily range): BP systolic 154; BP diastolic 88; PULSE 84–105; RESP 18; TEMP 36.5; O2SAT 83–96
--- NOTE | 2024-12-29 06:49 | ED.PROG_ITS ---
Date of service: 12/28/24 Time of Service: 23:30 Medical Decision Making This patient was signed out to me. Please see previous notes for H&P and initial eval. In brief, 49yo F here voluntarily for SI, medically cleared, pending placement. Raj considering. Overnight no acute events. Signed out to oncoming physician, plan as above. Quality:SDOH Health Related Social Needs: Health related social needs problems related to housin g/economic circumstances (Z59.89), feeling lonely/isolated (Z60.8) Discharge Plan Discharge Details Chief Complaint: PsychEval Clinical Impression: Depression with suicidal ideation, Auditory hallucinations Primary Care Provider: BRYCE SMITH ED Provider: Demi Henderson Home Meds and New Rx's Prescriptions: No Action (DME) Oxygen Tank See Rx Instructions .Route Qty: 1 0RF Rx Instructions: 2LPM with exertion pregabalin [Lyrica] 50 mg capsule 50 mg PO BID Patient Comments: prescribed by Bryce Smith, PCP ipratropium-albuterol 0.5 mg-3 mg(2.5 mg base)/3 mL solution for nebulization 3 ml UPD Q4H PRN PRN (Reason: shortness of breath or wheezing) Qty: 540 12RF azithromycin 250 mg tablet 250 mg PO DAILY Qty: 90 4RF Jardiance 25 mg tablet 25 mg PO DAILY Dulera 200-5 mcg/actuation HFA aerosol inhaler 2 puff inhalation BID Qty: 13 12RF Rx Instructions: Rinse mouth after use Spiriva Respimat 2.5 mcg/actuation mist 2 puff inhalation DAILY Qty: 4 12RF buspirone 30 mg tablet 30 mg PO BID Patient Comments: reports she is taking 60mg BID cyclobenzaprine 10 mg tablet 10 mg PO BID PRN PRN (Reason: muscle spasm) omeprazole 20 mg capsule,delayed release(DR/EC) 20 mg PO DAILY lisinopril 20 mg Tablet 20 mg PO DAILY divalproex [Depakote] 500 mg Tablet,Delayed Release (Dr/Ec) 1,000 mg PO HS risperidone [Risperdal] 2 mg Tablet 6 mg PO HS spironolactone 25 mg Tablet 25 mg PO DAILY Qty: 30 0RF escitalopram oxalate 20 mg tablet 20 mg PO DAILY Patient Comments: TAKE 1 TABLET BY MOUTH DAILY atomoxetine 40 mg capsule 80 mg PO DAILY Patient Comments: TAKE two CAPSULE BY MOUTH EVERY MORNING melatonin 10 mg capsule 10 mg PO HS PRN PRN prazosin 5 mg capsule 10 mg PO QHS Patient Comments: TAKE TWO CAPSULES BY MOUTH EVERY EVENING AT BEDTIME ibuprofen 800 mg tablet 800 mg PO BID PRN PRN Patient Comments: TAKE ONE TABLET BY MOUTH TWICE A DAY NEEDED furosemide [Lasix] 20 mg tablet 20 mg PO DAILY Qty: 14 0RF albuterol sulfate 2.5 mg /3 mL (0.083 %) solution for nebulization 2.5 mg inhalation Q4H PRN PRN albuterol sulfate [Proventil HFA] 90 mcg/actuation HFA aerosol inhaler 2 puff inhalation Q6H PRN PRN (Reason: shortness of breath or wheezing) ondansetron 4 mg tablet,disintegrating 4 mg PO Q8H PRN PRN (Reason: nausea and vomiting)
[2024-12-29] MEDS: Ondansetron O.D.T. 4 MG TABEF PO ×2 (07:45→18:05)
--- NOTE | 2024-12-29 07:51 | ED.PROG_ITS ---
Date of service: 12/29/24 Time of Service: 07:53 Medical Decision Making Patient signed out to me seeking voluntary placement For depression and thoughts of self-harm. No issues reported on prior shift and currently, cooperative without new complaints.Reportedly doc to doc has been done at [facility] they decided to verify they could provide oxygen to her while she is there before they could have a send her down. Will continue to monitor until safe disposition found Quality:SDOH Health Related Social Needs: Health related social needs problems related to housin g/economic circumstances (Z59.89), feeling lonely/isolated (Z60.8) Discharge Plan Discharge Details Chief Complaint: PsychEval Clinical Impression: Depression with suicidal ideation, Auditory hallucinations Primary Care Provider: BRYCE SMITH ED Provider: Demi Henderson Home Meds and New Rx's Prescriptions: No Action (DME) Oxygen Tank See Rx Instructions .Route Qty: 1 0RF Rx Instructions: 2LPM with exertion pregabalin [Lyrica] 50 mg capsule 50 mg PO BID Patient Comments: prescribed by Bryce Smith, PCP ipratropium-albuterol 0.5 mg-3 mg(2.5 mg base)/3 mL solution for nebulization 3 ml UPD Q4H PRN PRN (Reason: shortness of breath or wheezing) Qty: 540 12RF azithromycin 250 mg tablet 250 mg PO DAILY Qty: 90 4RF Jardiance 25 mg tablet 25 mg PO DAILY Dulera 200-5 mcg/actuation HFA aerosol inhaler 2 puff inhalation BID Qty: 13 12RF Rx Instructions: Rinse mouth after use Spiriva Respimat 2.5 mcg/actuation mist 2 puff inhalation DAILY Qty: 4 12RF buspirone 30 mg tablet 30 mg PO BID Patient Comments: reports she is taking 60mg BID cyclobenzaprine 10 mg tablet 10 mg PO BID PRN PRN (Reason: muscle spasm) omeprazole 20 mg capsule,delayed release(DR/EC) 20 mg PO DAILY lisinopril 20 mg Tablet 20 mg PO DAILY divalproex [Depakote] 500 mg Tablet,Delayed Release (Dr/Ec) 1,000 mg PO HS risperidone [Risperdal] 2 mg Tablet 6 mg PO HS spironolactone 25 mg Tablet 25 mg PO DAILY Qty: 30 0RF escitalopram oxalate 20 mg tablet 20 mg PO DAILY Patient Comments: TAKE 1 TABLET BY MOUTH DAILY atomoxetine 40 mg capsule 80 mg PO DAILY Patient Comments: TAKE two CAPSULE BY MOUTH EVERY MORNING melatonin 10 mg capsule 10 mg PO HS PRN PRN prazosin 5 mg capsule 10 mg PO QHS Patient Comments: TAKE TWO CAPSULES BY MOUTH EVERY EVENING AT BEDTIME ibuprofen 800 mg tablet 800 mg PO BID PRN PRN Patient Comments: TAKE ONE TABLET BY MOUTH TWICE A DAY NEEDED furosemide [Lasix] 20 mg tablet 20 mg PO DAILY Qty: 14 0RF albuterol sulfate 2.5 mg /3 mL (0.083 %) solution for nebulization 2.5 mg inhalation Q4H PRN PRN albuterol sulfate [Proventil HFA] 90 mcg/actuation HFA aerosol inhaler 2 puff inhalation Q6H PRN PRN (Reason: shortness of breath or wheezing) ondansetron 4 mg tablet,disintegrating 4 mg PO Q8H PRN PRN (Reason: nausea and vomiting)
[2024-12-29] MEDS: busPIRone 15 MG TAB 30 MG PO ×2 (10:21→21:00)
[2024-12-29] MEDS: Omeprazole 20 MG CAPCR PO (10:21)
[2024-12-29] MEDS: Empaglifozin 25 MG TAB PO (10:21)
[2024-12-29] MEDS: Lisinopril 10 MG TAB 20 MG PO (10:21)
[2024-12-29] MEDS: Furosemide 20 MG TAB PO (10:22)
[2024-12-29] MEDS: Escitalopram 20 MG TAB PO (10:22)
[2024-12-29] MEDS: Spironolactone 25 MG TAB PO (10:22)
[2024-12-29] MEDS: Pregabalin 50 MG CAP PO ×2 (10:22→21:00)
[2024-12-29] MEDS: Ketorolac 15 MG/ML VIAL IM (10:22)
[2024-12-29] MEDS: Budesonide/Formoterol 160/4.5 6 GM 60 PUFF INH IH ×2 (10:25→10:54)
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
[2024-12-29] MEDS: Acetaminophen 500 MG TAB 1000 MG PO (15:43)
[2024-12-29] MEDS: Ibuprofen 600 MG TAB PO (16:37)
--- NOTE | 2024-12-29 16:37 | CMSP_ITS ---
Date of service: 12/29/24 Time of Service: 16:37 Care Management Safety Plan Status Status: Voluntary Reason for Wait Reason for Wait: Inpatient Admission Safety Plan Safety Plan: VOLUNTARY FOR INPATIENT PSYCHIATRIC STABILIZATION.? Patient is appropriate in all interactions since arriving at [facility]; Pt has demonstrated appropriate coping and communication skills, has articulated his or her needs and concerns and is fully engaged during staff interactions. Safety plan has been established with patient, and care team, to adhere to patient goals, identify restrictions based on behavioral status, address nutrition, and determine allowed personal belongings, tools for hygiene and personal care. Determine level of activity including ambulation, level of supervision, visitors, and determine privileges based on behaviors and level of engagement by pt. VOLUNTARY SAFETY PLAN: 1. Will remain on suicide precautions, in paper clothes 2. Will remain in Zone B under direct supervision of one-on-one staff at all times provided by [employer]; MARLEE, RADAR TECHNICIAN group managing director. 3. May have paper cups, plates, finger foods as well as a cardboard spoon with which to eat meals. 4. Follow [facility] Management of the Admitted Behavioral Health Patient policy. 5. Shower available in Zone B without restriction. 6. Personal belongings-soft items permitted at RN discretion. 7. Visitors- at RN discretion. 8. Activities: soft cart items approved per RN discretion. 9.? Bathroom available in Zone B without restriction. 10. Phone: limited to [facility] cordless phone at RN discretion. Due to VOLUNTARY status, if patient wishes to leave [facility], staff will contact [facility] Crisis Screener ([phone]) and Pipe Out Worker ([phone]) as soon as possible. In the event of elopement, notify [facility] Police ([phone]). Patient is currently voluntarily at [facility] and seeking inpatient admission when a bed becomes available. [facility] Frontline Terrazzo Finisher Helper will continue seeking placement. Please contact the Pipe Out Worker ([phone]) and [facility] Terrazzo Finisher Helper ([phone]) for any needed changes in the Safety Plan. Safety plan has been provided to interdepartmental care team.
--- NOTE | 2024-12-29 16:38 | CMPROGNOTE_ITS ---
Date of service: 12/29/24 Time of Service: 16:38 Care Management Progress Note Progress Note Text Progress Note Text: CM met with ED staff to discuss Cecilia's plan of care. Per report, Cecilia was accepted at [facility] yesterday, but then was declined after further review, due to her O2 needs at night. She has been appropriate and engaging well with staff. Per [facility], Cecilia continues to meet criteria for inpatient psychiatric treatment. She is voluntary, seeking treatment. Safety plan in place; CM will continue to follow. Social Determinants of Health Screening Social Determinants of Health last assessed: 12/29/24 Will the Patient Participate in the Screening?: Yes Do you worry about having a steady place to live?: no Problems where you live: no known problems In the past 12 months, have you had to go without electric, gas, oil or water in your home?: no Have you or anyone in your house had to go without enough food to eat?: no Has lack of transportation kept you from medical appointments or from doing things needed for daily living?: no Has anyone in your life made you feel unsafe or unsupported?: no How hard is it for you to pay for the very basics like food, housing, medical care, and heating? Would you say it is:: Very hard Do you want help finding or keeping work or a job?: I do not need or want help If for any reason you need help with day-to-day activities such as bathing, preparing meals, shopping, managing finances, etc., do you get the help you need?: I don?t need any help How often do you feel lonely or isolated from those around you?: Always Do you speak a language other than Singaporean at home?: No Does the patient want assistance with any of the above?: No Health Related Social Needs Health related social needs: problems related to housing/economic circumstances (Z59.89) and feeling lonely/isolated (Z60.8)
[2024-12-29] MEDS: risperiDONE 1 MG TAB 6 MG PO (21:00)
[2024-12-29] MEDS: Prazosin 5 MG CAP 10 MG PO (21:00)
[2024-12-29] MEDS: Divalproex 500 MG TABEC 1000 MG PO (21:00)
--- NOTE | 2024-12-29 22:16 | ED.PROG_ITS ---
Date of service: 12/29/24 Time of Service: 16:00 Medical Decision Making This is a 49-year-old female patient boarding in our emergency department for suicidal ideation. Prior to my taking over their care, the patient was medically cleared, and has been resting comfortably. They have met with the social media content specialist and we are awaiting final dispo. They have not required any additional medications for restraint or sedation. She has been resting in the main ER so that she can use her home oxygen during sleep to prevent desaturations. The patient was signed out to the oncoming provider prior to final disposition. Remained hemodynamically appropriate, calm, cooperative, and comfortable while under my care. Mel Mallory MD Medical Records Medical records reviewed: Yes I reviewed the patient's medical records. Lab Data Lab results reviewed: Yes I reviewed the patient's lab results. Quality:SDOH Health Related Social Needs: Health related social needs problems related to housin g/economic circumstances (Z59.89), feeling lonely/isolated (Z60.8) Discharge Plan Discharge Details Chief Complaint: PsychEval Clinical Impression: Depression with suicidal ideation, Auditory hallucinations Primary Care Provider: BRYCE SMITH ED Provider: Mel Mallory Home Meds and New Rx's Prescriptions: No Action (DME) Oxygen Tank See Rx Instructions .Route Qty: 1 0RF Rx Instructions: 2LPM with exertion pregabalin [Lyrica] 50 mg capsule 50 mg PO BID Patient Comments: prescribed by JAMES Jennings ipratropium-albuterol 0.5 mg-3 mg(2.5 mg base)/3 mL solution for nebulization 3 ml UPD Q4H PRN PRN (Reason: shortness of breath or wheezing) Qty: 540 12RF azithromycin 250 mg tablet 250 mg PO DAILY Qty: 90 4RF Jardiance 25 mg tablet 25 mg PO DAILY Dulera 200-5 mcg/actuation HFA aerosol inhaler 2 puff inhalation BID Qty: 13 12RF Rx Instructions: Rinse mouth after use Spiriva Respimat 2.5 mcg/actuation mist 2 puff inhalation DAILY Qty: 4 12RF buspirone 30 mg tablet 30 mg PO BID Patient Comments: reports she is taking 60mg BID cyclobenzaprine 10 mg tablet 10 mg PO BID PRN PRN (Reason: muscle spasm) omeprazole 20 mg capsule,delayed release(DR/EC) 20 mg PO DAILY lisinopril 20 mg Tablet 20 mg PO DAILY divalproex [Depakote] 500 mg Tablet,Delayed Release (Dr/Ec) 1,000 mg PO HS risperidone [Risperdal] 2 mg Tablet 6 mg PO HS spironolactone 25 mg Tablet 25 mg PO DAILY Qty: 30 0RF escitalopram oxalate 20 mg tablet 20 mg PO DAILY Patient Comments: TAKE 1 TABLET BY MOUTH DAILY atomoxetine 40 mg capsule 80 mg PO DAILY Patient Comments: TAKE two CAPSULE BY MOUTH EVERY MORNING melatonin 10 mg capsule 10 mg PO HS PRN PRN prazosin 5 mg capsule 10 mg PO QHS Patient Comments: TAKE TWO CAPSULES BY MOUTH EVERY EVENING AT BEDTIME ibuprofen 800 mg tablet 800 mg PO BID PRN PRN Patient Comments: TAKE ONE TABLET BY MOUTH TWICE A DAY NEEDED furosemide [Lasix] 20 mg tablet 20 mg PO DAILY Qty: 14 0RF albuterol sulfate 2.5 mg /3 mL (0.083 %) solution for nebulization 2.5 mg inhalation Q4H PRN PRN albuterol sulfate [Proventil HFA] 90 mcg/actuation HFA aerosol inhaler 2 puff inhalation Q6H PRN PRN (Reason: shortness of breath or wheezing) ondansetron 4 mg tablet,disintegrating 4 mg PO Q8H PRN PRN (Reason: nausea and vomiting)
[2024-12-29] MEDS: Melatonin 3 MG TAB 9 MG PO (23:38)
[2024-12-30] VITALS (76 sets, daily range): BP systolic 191; BP diastolic 99; PULSE 91–119; RESP 5–24; TEMP 37.3; O2SAT 77–96
[2024-12-30] MEDS: Albuterol/Ipratropium 3 ML UPD VIAL UPD (06:04)
--- NOTE | 2024-12-30 07:16 | W.EDPROG ---
Date of service: 12/30/24 Time of Service: 07:16 Medical Decision Making Patient seeking voluntary placement for thoughts of self-harm, currently with no new acute complaints. Will continue to monitor until safe disposition found Quality:SDOH Health Related Social Needs: Health related social needs problems related to housing/economic circumstances (Z59.89), feeling lonely/isolated (Z60.8) Discharge Plan Discharge Details Chief Complaint: PsychEval Clinical Impression: Depression with suicidal ideation, Auditory hallucinations Primary Care Provider: BRYCE SMITH ED Provider: Uriah Blue [place] Meds and New Rx's Prescriptions: No Action (DME) Oxygen Tank See Rx Instructions .Route Qty: 1 0RF Rx Instructions: 2LPM with exertion pregabalin [Lyrica] 50 mg capsule 50 mg PO BID Patient Comments: prescribed by JAMES Jennings ipratropium-albuterol 0.5 mg-3 mg(2.5 mg base)/3 mL solution for nebulization 3 ml UPD Q4H PRN PRN (Reason: shortness of breath or wheezing) Qty: 540 12RF azithromycin 250 mg tablet 250 mg PO DAILY Qty: 90 4RF Jardiance 25 mg tablet 25 mg PO DAILY Dulera 200-5 mcg/actuation HFA aerosol inhaler 2 puff inhalation BID Qty: 13 12RF Rx Instructions: Rinse mouth after use Spiriva Respimat 2.5 mcg/actuation mist 2 puff inhalation DAILY Qty: 4 12RF buspirone 30 mg tablet 30 mg PO BID Patient Comments: reports she is taking 60mg BID cyclobenzaprine 10 mg tablet 10 mg PO BID PRN PRN (Reason: muscle spasm) omeprazole 20 mg capsule,delayed release(DR/EC) 20 mg PO DAILY lisinopril 20 mg Tablet 20 mg PO DAILY divalproex [Depakote] 500 mg Tablet,Delayed Release (Dr/Ec) 1,000 mg PO HS risperidone [Risperdal] 2 mg Tablet 6 mg PO HS spironolactone 25 mg Tablet 25 mg PO DAILY Qty: 30 0RF escitalopram oxalate 20 mg tablet 20 mg PO DAILY Patient Comments: TAKE 1 TABLET BY MOUTH DAILY atomoxetine 40 mg capsule 80 mg PO DAILY Patient Comments: TAKE two CAPSULE BY MOUTH EVERY MORNING melatonin 10 mg capsule 10 mg PO HS PRN PRN prazosin 5 mg capsule 10 mg PO QHS Patient Comments: TAKE TWO CAPSULES BY MOUTH EVERY EVENING AT BEDTIME ibuprofen 800 mg tablet 800 mg PO BID PRN PRN Patient Comments: TAKE ONE TABLET BY MOUTH TWICE A DAY NEEDED furosemide [Lasix] 20 mg tablet 20 mg PO DAILY Qty: 14 0RF albuterol sulfate 2.5 mg /3 mL (0.083 %) solution for nebulization 2.5 mg inhalation Q4H PRN PRN albuterol sulfate [Proventil HFA] 90 mcg/actuation HFA aerosol inhaler 2 puff inhalation Q6H PRN PRN (Reason: shortness of breath or wheezing) ondansetron 4 mg tablet,disintegrating 4 mg PO Q8H PRN PRN (Reason: nausea and vomiting)
[2024-12-30] MEDS: Furosemide 20 MG TAB PO (08:44)
[2024-12-30] MEDS: busPIRone 15 MG TAB 30 MG PO ×2 (08:45→20:36)
[2024-12-30] MEDS: Spironolactone 25 MG TAB PO (08:45)
[2024-12-30] MEDS: Pregabalin 50 MG CAP PO ×2 (08:45→20:36)
[2024-12-30] MEDS: Lisinopril 10 MG TAB 20 MG PO (08:45)
[2024-12-30] MEDS: Omeprazole 20 MG CAPCR PO (08:45)
[2024-12-30] MEDS: Escitalopram 20 MG TAB PO (08:45)
[2024-12-30] MEDS: Empaglifozin 25 MG TAB PO (08:45)
[2024-12-30] MEDS: Budesonide/Formoterol 160/4.5 6 GM 60 PUFF INH IH ×2 (08:46→21:55)
[2024-12-30] MEDS: Tiotropium Bromide-Respimat 10 PUFF INH 2 PUFF IH (08:47)
--- NOTE | 2024-12-30 11:50 | NUR.NOTE ---
Nursing Note: VS obtained yesterday showed that the patient required oxygen during the day instead of just as night as the patient had previously stated she only uses oxygen at night. The patient denied any feelings of being short of breath or struggling to breath, however; she was sating in the low 80s. She was moved to room 5 in the main ED where she could have continuous oxygen on. During the night, it was reported that they needed to increase her oxygen to 4L due to desating in the low 80s while sleeping. This brought her up to the low 90s and high 80s, where our target level was. We have been able to decrease the oxygen to 2 L and she is maintaining high 80s to low 90s, but does require continuous oxygen at this time. A POC covid/flu was obtained, which came back negative. The nurse from [facility] called to see how she was doing. She was notified that the patient now requires continuous oxygen. She checked with their medical team and have denied the patient at this time due to her oxygen requirements. Dr. Blue has been notified of the decline by his facility.
--- NOTE | 2024-12-30 12:08 | MHPN_ITS ---
Date of service: 12/30/24 Time of Service: 10:20 PHQ-9 Over the last 2 weeks, how often have you been bothered by any of the following problems? 1. Little interest or pleasure in doing things: nearly every day 2. Feeling down, depressed, or hopeless: nearly every day 3. Trouble falling or staying asleep, or sleeping too much: nearly every day 4. Feeling tired or having little energy: nearly every day 5. Poor appetite or overeating: nearly every day 6. Feeling bad about yourself - or that you are a failure or have let yourself and your family down: more than half the days 7. Trouble concentrating on things, such as reading the newspaper or watching television: nearly every day 8. Moving or speaking so slowly that other people could have noticed? - Or the opposite - being so fidgety or restless that you have been moving around a lot more than usual: nearly every day 9. Thoughts that you would be better off or of hurting yourself in some way: more than half the days Total score: 25 If you checked off any problems, how difficult have these problems made it for you to do your work, take care of things at home, or get along with other people?: very difficult PHQ-9 Results: Positive Source: Developed by Drs. Ronaldo Zamudio, Brandy Mitchell, Luis Amanda and colleagues, with an educational pablo from [employer]. Suicide Severity Rate CSSRS Have you wished you were or wished you could go to sleep and not wake up?: Yes Have you actually had any thoughts of killing yourself?: Yes CSSRS2 Have you been thinking about how you might do this?: No Have you had these thoughts and had some intention of acting on them?: No Have you started to work out or worked out the details of how to kill yourself? Do you intend to carry out this plan?: No CSSRS3 Have you ever done anything, started to do anything or prepared to do anything to end your life?: No CSSRS4 Was this within the past three months?: No Screening Score Total Score: 4 Screening: Positive Mental Health Emergency Note Release [facility] release signed:: Yes Reason for Visit Sad, Depressed and has thoughts that tell her to kill herself. In the last 2 weeks has the pt presented for ES prior to today?: Yes, presented at Client Information Client is: Adult Outpatient Well Housed: Yes Non Suicidal Self Injury Current: No History: No Safety Risk/Harm to Self or Others Current Ideation to Harm Self or Others: No Risk: Does risk to harm exist?: yes. Risk: Moderate Risk Duty to warn indicated: No Asssessment/Mental Status Appearance: Unremarkable and Disheveled Attitude: Cooperative and Friendly Behavior: Unremarkable Speech: Normal and Soft Affect: Normal Mood: Sad and Depressed Thought process: Goal directed Hallucinations: yes, Auditory Delusions: No Attention: Unremarkable Perception: Not impaired Orientation: Fully orientated Memory: Intact Insight: Fair Judgement: Fair Plan/Disposition Recommended Disposition: Hospitalization facilities contacted. Reports/communication Outcome discussed with: ED/Personnel
[2024-12-30] MEDS: Albuterol 2.5 MG/3 ML INH SOLN VIAL IH (13:21)
[2024-12-30] MEDS: Ondansetron O.D.T. 4 MG TABEF PO (17:13)
--- NOTE | 2024-12-30 17:27 | CMSP_ITS ---
Date of service: 12/30/24 Time of Service: 17:27 Care Management Safety Plan Status Status: Voluntary Reason for Wait Reason for Wait: Inpatient Admission Safety Plan Safety Plan: VOLUNTARY FOR INPATIENT PSYCHIATRIC STABILIZATION.? Patient is appropriate in all interactions since arriving at [facility]; Pt has demonstrated appropriate coping and communication skills, has articulated his or her needs and concerns and is fully engaged during staff interactions. Safety plan has been established with patient, and care team, to adhere to patient goals, identify restrictions based on behavioral status, address nutrition, and determine allowed personal belongings, tools for hygiene and personal care. Determine level of activity including ambulation, level of supervision, visitors, and determine privileges based on behaviors and level of engagement by pt. VOLUNTARY SAFETY PLAN: 1. Will remain on suicide precautions, in paper clothes 2. Will remain in Zone B under direct supervision of one-on-one staff at all times provided by [employer]; MARLEE, CROOK OPERATOR gear coding machine operator. 3. May have paper cups, plates, finger foods as well as a cardboard spoon with which to eat meals. 4. Follow [facility] Management of the Admitted Behavioral Health Patient policy. 5. Shower available in Zone B without restriction. 6. Personal belongings-soft items permitted at RN discretion. 7. Visitors- at RN discretion. 8. Activities: soft cart items approved per RN discretion. 9.? Bathroom available in Zone B without restriction. 10. Phone: limited to [facility] cordless phone at RN discretion. Due to VOLUNTARY status, if patient wishes to leave [facility], staff will contact [facility] Crisis Screener ([phone]) and Obgyn Specialist ([phone]) as soon as possible. In the event of elopement, notify [facility] Police ([phone]). Patient is currently voluntarily at [facility] and seeking inpatient admission when a bed becomes available. [facility] Frontline Superintendent Transportation will continue seeking placement. Please contact the Obgyn Specialist ([phone]) and [facility] Superintendent Transportation ([phone]) for any needed changes in the Safety Plan. Safety plan has been provided to interdepartmental care team.
--- NOTE | 2024-12-30 17:27 | PDOC.CMSAFE ---
Date of service: 12/30/24 Time of Service: 17:27 Care Management Safety Plan Status Status: Voluntary Reason for Wait Reason for Wait: Inpatient Admission Safety Plan Safety Plan: VOLUNTARY FOR INPATIENT PSYCHIATRIC STABILIZATION.? Patient is appropriate in all interactions since arriving at [facility]; Pt has demonstrated appropriate coping and communication skills, has articulated his or her needs and concerns and is fully engaged during staff interactions. Safety plan has been established with patient, and care team, to adhere to patient goals, identify restrictions based on behavioral status, address nutrition, and determine allowed personal belongings, tools for hygiene and personal care. Determine level of activity including ambulation, level of supervision, visitors, and determine privileges based on behaviors and level of engagement by pt. VOLUNTARY SAFETY PLAN: 1. Will remain on suicide precautions, in paper clothes 2. Will remain in Zone B under direct supervision of one-on-one staff at all times provided by [employer]; MARLEE, MAIL TELLER cuffing machine operator. 3. May have paper cups, plates, finger foods as well as a cardboard spoon with which to eat meals. 4. Follow [facility] Management of the Admitted Behavioral Health Patient policy. 5. Shower available in Zone B without restriction. 6. Personal belongings-soft items permitted at RN discretion. 7. Visitors- at RN discretion. 8. Activities: soft cart items approved per RN discretion. 9.? Bathroom available in Zone B without restriction. 10. Phone: limited to [facility] cordless phone at RN discretion. Due to VOLUNTARY status, if patient wishes to leave [facility], staff will contact [facility] Crisis Screener ([phone]) and Insurance Premium Auditor ([phone]) as soon as possible. In the event of elopement, notify [facility] Police ([phone]). Patient is currently voluntarily at [facility] and seeking inpatient admission when a bed becomes available. [facility] Frontline Senior Clinical Research Associate will continue seeking placement. Please contact the Insurance Premium Auditor ([phone]) and [facility] Senior Clinical Research Associate ([phone]) for any needed changes in the Safety Plan. Safety plan has been provided to interdepartmental care team.
--- NOTE | 2024-12-30 19:37 | ED.PROG_ITS ---
Date of service: 12/30/24 Time of Service: 16:00 Medical Decision Making In brief, this is a 49-year-old female patient boarding in our emergency department for suicidal ideation. She was medically cleared prior to my taking over care, and has been resting comfortably in our emergency department, utilizing her home oxygen when sleeping and resting. During my shift today, the patient was noted to become tachycardic, and had some desaturation events despite using her oxygen. These did not improve significa ntly with her home nebulizer treatments, and for this reason we did elect to proceed with a chest x-ray, which did show some bilateral opacities concerning for pneumonia. Pulmonary edema was also on the radiologist's differential, though the patient is already taking her Lasix as prescribed and making appropriate urine. I provided the patient with azithromycin as well as a prednisone burst given her history of COPD. The patient was signed out to the oncoming provider prior to final mental health disposition. Mel Mallory MD Medical Records Medical records reviewed: Yes I reviewed the patient's medical records. Lab Data Lab results reviewed: Yes I reviewed the patient's lab results. Quality:SDOH Health Related Social Needs: Health related social needs problems related to housin g/economic circums tances (Z59.89), feeling lonely/isolated (Z60.8) Discharge Plan Discharge Details Chief Complaint: PsychEval Clinical Impression: Depression with suicidal ideation, Auditory hallucinations Primary Care Provider: BRYCE SMITH ED Provider: Mel Mallory Home Meds and New Rx's Prescriptions: No Action (DME) Oxygen Tank See Rx Instructions .Route Qty: 1 0RF Rx Instructions: 2LPM with exertion pregabalin [Lyrica] 50 mg capsule 50 mg PO BID Patient Comments: prescribed by Bryce Smith, PCP ipratropium-albuterol 0.5 mg-3 mg(2.5 mg base)/3 mL solution for nebulization 3 ml UPD Q4H PRN PRN (Reason: shortness of breath or wheezing) Qty: 540 12RF azithromycin 250 mg tablet 250 mg PO DAILY Qty: 90 4RF Jardiance 25 mg tablet 25 mg PO DAILY Dulera 200-5 mcg/actuation HFA aerosol inhaler 2 puff inhalation BID Qty: 13 12RF Rx Instructions: Rinse mouth after use Spiriva Respimat 2.5 mcg/actuation mist 2 puff inhalation DAILY Qty: 4 12RF buspirone 30 mg tablet 30 mg PO BID Patient Comments: reports she is taking 60mg BID cyclobenzaprine 10 mg tablet 10 mg PO BID PRN PRN (Reason: muscle spasm) omeprazole 20 mg capsule,delayed release(DR/EC) 20 mg PO DAILY lisinopril 20 mg Tablet 20 mg PO DAILY divalproex [Depakote] 500 mg Tablet,Delayed Release (Dr/Ec) 1,000 mg PO HS risperidone [Risperdal] 2 mg Tablet 6 mg PO HS spironolactone 25 mg Tablet 25 mg PO DAILY Qty: 30 0RF escitalopram oxalate 20 mg tablet 20 mg PO DAILY Patient Comments: TAKE 1 TABLET BY MOUTH DAILY atomoxetine 40 mg capsule 80 mg PO DAILY Patient Comments: TAKE two CAPSULE BY MOUTH EVERY MORNING melatonin 10 mg capsule 10 mg PO HS PRN PRN prazosin 5 mg capsule 10 mg PO QHS Patient Comments: TAKE TWO CAPSULES BY MOUTH EVERY EVENING AT BEDTIME ibuprofen 800 mg tablet 800 mg PO BID PRN PRN Patient Comments: TAKE ONE TABLET BY MOUTH TWICE A DAY NEEDED furosemide [Lasix] 20 mg tablet 20 mg PO DAILY Qty: 14 0RF albuterol sulfate 2.5 mg /3 mL (0.083 %) solution for nebulization 2.5 mg inhalation Q4H PRN PRN albuterol sulfate [Proventil HFA] 90 mcg/actuation HFA aerosol inhaler 2 puff inhalation Q6H PRN PRN (Reason: shortness of breath or wheezing) ondansetron 4 mg tablet,disintegrating 4 mg PO Q8H PRN PRN (Reason: nausea and vomiting)
--- NOTE | 2024-12-30 19:45 | DI.RAD_ITS ---
Exam(s) XR CHEST 2V PA LATERAL EXAM: XR CHEST 2V PA LATERAL CLINICAL HISTORY: Hypoxia, cough, wheezing TECHNIQUE: 2D digital imaging was performed. Two views. COMPARISON: CR XR CHEST 2V PA LATERAL from 07/01/2024 CR,XR XR PORTABLE CHEST AP from 10/26/2024 CR,XR XR CHEST 2V PA LATERAL from 11/29/2024 FINDINGS: HEART: Mildly enlarged. Aorta: Not dilated. PULMONARY VASCULATURE: Normal. MEDIASTINUM: Unremarkable. LUNGS: Infiltrates are noted in the right upper and middle lobes. PLEURAL SPACE: No pleural effusion or pneumothorax. BONE:Old left rib fractures. SOFT TISSUES: Unremarkable. IMPRESSION: Right upper and middle lobe infiltrates. DATA REPOSITORY: RADIATION DOSE DELIVERED:
--- NOTE | 2024-12-30 20:31 | DI.VRAD_ITS ---
PROCEDURE INFORMATION: Exam: XR Chest Exam date and time: 12/30/2024 8:10 PM Age: 49 years old Clinical indication: Cough and wheezing and other: Hypoxia TECHNIQUE: Imaging protocol: Radiologic exam of the chest. Views: 2 views. COMPARISON: CR XR CHEST 2V PA LATERAL 11/29/2024 11:35 PM FINDINGS: Lungs: There are patchy bilateral airspace opacities slightly more extensive at the right mid and lower lung level. Pulmonary vascularity upper limits of normal. Pleural spaces: Unremarkable. No pleural effusion. No pneumothorax. Heart/Mediastinum: No change cardiomegaly. Bones/joints: Left rib deformities consistent with prior trauma. IMPRESSION: Concern for bilateral infiltrates, possible pneumonia. A degree of fluid overload is not excludable. Dictated and Authenticated by: Leticia Wood MD. Orderin St. Atif Leal MD
[2024-12-30] MEDS: Prazosin 5 MG CAP 10 MG PO (20:36)
[2024-12-30] MEDS: Azithromycin 250 MG TAB 500 MG PO (20:36)
[2024-12-30] MEDS: risperiDONE 1 MG TAB 6 MG PO (20:36)
[2024-12-30] MEDS: Divalproex 500 MG TABEC 1000 MG PO (20:37)
[2024-12-30] MEDS: predniSONE 20 MG TAB 40 MG PO (20:37)
[2024-12-31] VITALS (29 sets, daily range): BP systolic 143–188; BP diastolic 65–90; PULSE 82–115; RESP 16–20; TEMP 36.4–36.6; O2SAT 83–96
[2024-12-31] MEDS: Albuterol/Ipratropium 3 ML UPD VIAL UPD ×2 (02:15→04:51)
--- NOTE | 2024-12-31 06:48 | ED.PROG_ITS ---
Date of service: 12/31/24 Time of Service: 06:48 Medical Decision Making Patient was stable throughout the shift, however during the evening while she was sleeping on her 2 to 3 L of supplemental baseline oxygen she would continue to drop to the mid 80s on pulse oximetry. She did have to be bumped up to 5 to 6 L while sleeping, but as soon as she was aroused or given a breathing treatment her symptoms resolved. Would recommend continued close monitoring of her symptomatology to make sure she has no worsening hypoxemia over the next 24 to 48 hours. Quality:SDOH Health Related Social Needs: Health related social needs problems related to housin g/economic circumstances (Z59.89), feeling lonely/isolated (Z60.8) Discharge Plan Discharge Details Chief Complaint: PsychEval Clinical Impression: Depression with suicidal ideation, Auditory hallucinations Primary Care Provider: BRYCE SMITH ED Provider: Matty Palacio Home Meds and New Rx's Prescriptions: No Action (DME) Oxygen Tank See Rx Instructions .Route Qty: 1 0RF Rx Instructions: 2LPM with exertion pregabalin [Lyrica] 50 mg capsule 50 mg PO BID Patient Comments: prescribed by Bryce Smith, PCP ipratropium-albuterol 0.5 mg-3 mg(2.5 mg base)/3 mL solution for nebulization 3 ml UPD Q4H PRN PRN (Reason: shortness of breath or wheezing) Qty: 540 12RF azithromycin 250 mg tablet 250 mg PO DAILY Qty: 90 4RF Jardiance 25 mg tablet 25 mg PO DAILY Dulera 200-5 mcg/actuation HFA aerosol inhaler 2 puff inhalation BID Qty: 13 12RF Rx Instructions: Rinse mouth after use Spiriva Respimat 2.5 mcg/actuation mist 2 puff inhalation DAILY Qty: 4 12RF buspirone 30 mg tablet 30 mg PO BID Patient Comments: reports she is taking 60mg BID cyclobenzaprine 10 mg tablet 10 mg PO BID PRN PRN (Reason: muscle spasm) omeprazole 20 mg capsule,delayed release(DR/EC) 20 mg PO DAILY lisinopril 20 mg Tablet 20 mg PO DAILY divalproex [Depakote] 500 mg Tablet,Delayed Release (Dr/Ec) 1,000 mg PO HS risperidone [Risperdal] 2 mg Tablet 6 mg PO HS spironolactone 25 mg Tablet 25 mg PO DAILY Qty: 30 0RF escitalopram oxalate 20 mg tablet 20 mg PO DAILY Patient Comments: TAKE 1 TABLET BY MOUTH DAILY atomoxetine 40 mg capsule 80 mg PO DAILY Patient Comments: TAKE two CAPSULE BY MOUTH EVERY MORNING melatonin 10 mg capsule 10 mg PO HS PRN PRN prazosin 5 mg capsule 10 mg PO QHS Patient Comments: TAKE TWO CAPSULES BY MOUTH EVERY EVENING AT BEDTIME ibuprofen 800 mg tablet 800 mg PO BID PRN PRN Patient Comments: TAKE ONE TABLET BY MOUTH TWICE A DAY NEEDED furosemide [Lasix] 20 mg tablet 20 mg PO DAILY Qty: 14 0RF albuterol sulfate 2.5 mg /3 mL (0.083 %) solution for nebulization 2.5 mg inhalation Q4H PRN PRN albuterol sulfate [Proventil HFA] 90 mcg/actuation HFA aerosol inhaler 2 puff inhalation Q6H PRN PRN (Reason: shortness of breath or wheezing) ondansetron 4 mg tablet,disintegrating 4 mg PO Q8H PRN PRN (Reason: nausea and vomiting)
[2024-12-31] MEDS: Ondansetron O.D.T. 4 MG TABEF PO ×2 (08:34→20:36)
--- NOTE | 2024-12-31 08:35 | W.EDPROG ---
Date of service: 12/31/24 Time of Service: 09:21 Medical Decision Making Care was signed out by Dr. Palacio, please see his documentation regarding prior ED course. Patient is here for suicidality but developed worsening hypoxia and increasing oxygen requirement. Patient has history of COPD and is typically on supplemental oxygen at night. Given worsening respiratory status, chest x-ray performed yesterday and demonstrated pneumonia. She has been started on steroid and azithromycin. Plan to hospitalize for acute COPD exacerbation and pneumonia with increasing oxygen requirement. Patient will need treatment for her psychiatric illness as well. She will continue to be observed by patient observer and will request reassessment by [facility] crisis screener. I spoke with Dr. Bravo, discussed ED course, he will admit the patient. [id number]??on my reassessment, patient notes she is feeling better in terms of psychiatric illness. She states she is not currently feeling suicidal. Quality:SDOH Health Related Social Needs: Health related social needs problems related to housing/economic circumstances (Z59.89), feeling lonely/isolated (Z60.8) Discharge Plan Disposition Patient Disposition: Admit to [facility] Condition: Serious Discharge Details Chief Complaint: PsychEval Clinical Impression: Depression with suicidal ideation, Auditory hallucinations, Pneumonia, Acute exacerbation of chronic obstructive pulmonary disease, Hypertension Primary Care Provider: BRYCE SMITH ED Provider: Ernst Andrade Home Meds and New Rx's Prescriptions: No Action (DME) Oxygen Tank See Rx Instructions .Route Qty: 1 0RF Rx Instructions: 2LPM with exertion pregabalin [Lyrica] 50 mg capsule 50 mg PO BID Patient Comments: prescribed by Bryce Smith, JAMES ipratropium-albuterol 0.5 mg-3 mg(2.5 mg base)/3 mL solution for nebulization 3 ml UPD Q4H PRN PRN (Reason: shortness of breath or wheezing) Qty: 540 12RF azithromycin 250 mg tablet 250 mg PO DAILY Qty: 90 4RF Jardiance 25 mg tablet 25 mg PO DAILY Dulera 200-5 mcg/actuation HFA aerosol inhaler 2 puff inhalation BID Qty: 13 12RF Rx Instructions: Rinse mouth after use Spiriva Respimat 2.5 mcg/actuation mist 2 puff inhalation DAILY Qty: 4 12RF buspirone 30 mg tablet 30 mg PO BID Patient Comments: reports she is taking 60mg BID cyclobenzaprine 10 mg tablet 10 mg PO BID PRN PRN (Reason: muscle spasm) omeprazole 20 mg capsule,delayed release(DR/EC) 20 mg PO DAILY lisinopril 20 mg Tablet 20 mg PO DAILY divalproex [Depakote] 500 mg Tablet,Delayed Release (Dr/Ec) 1,000 mg PO HS risperidone [Risperdal] 2 mg Tablet 6 mg PO HS spironolactone 25 mg Tablet 25 mg PO DAILY Qty: 30 0RF escitalopram oxalate 20 mg tablet 20 mg PO DAILY Patient Comments: TAKE 1 TABLET BY MOUTH DAILY atomoxetine 40 mg capsule 80 mg PO DAILY Patient Comments: TAKE two CAPSULE BY MOUTH EVERY MORNING melatonin 10 mg capsule 10 mg PO HS PRN PRN prazosin 5 mg capsule 10 mg PO QHS Patient Comments: TAKE TWO CAPSULES BY MOUTH EVERY EVENING AT BEDTIME ibuprofen 800 mg tablet 800 mg PO BID PRN PRN Patient Comments: TAKE ONE TABLET BY MOUTH TWICE A DAY NEEDED furosemide [Lasix] 20 mg tablet 20 mg PO DAILY Qty: 14 0RF albuterol sulfate 2.5 mg /3 mL (0.083 %) solution for nebulization 2.5 mg inhalation Q4H PRN PRN albuterol sulfate [Proventil HFA] 90 mcg/actuation HFA aerosol inhaler 2 puff inhalation Q6H PRN PRN (Reason: shortness of breath or wheezing) ondansetron 4 mg tablet,disintegrating 4 mg PO Q8H PRN PRN (Reason: nausea and vomiting)
--- NOTE | 2024-12-31 08:41 | HPE_ITS ---
Date of service: 12/31/24 Time of Service: 13:04 Assessment and Plan Assessment and plan (1) CAP (community acquired pneumonia): Status: Acute Assessment and plan: - Patient admitted to have bilateral worsening hypoxic respiratory failure while awaiting inpatient psych placement, chest x-ray on 12/30/2024 that showed infiltrates suggestive of pneumonia -Patient was negative for flu and COVID -Was started on azithromycin, will continue (2) Acute on chronic respiratory failure with hypoxia: Status: Acute Assessment and plan: - Patient requires 2 L of supplemental oxygen at night for combination of obesity hypoventilation and COPD -However, as noted above she developed worsening hypoxia with daytime oxygen requirement and increased nighttime oxygen requirement -Currently on 3 L nasal cannula, wean for goal oxygen saturation of 88 to 92% -Continue at bedtime oxygen (3) Depression with suicidal ideation: Status: Acute Assessment and plan: - Patient initially presented to the emergency department concerns for suicidal ideation -She has been here voluntarily, and has been seen by mental health daily -Recommendation is to continue to work on inpatient psych for suicidal ideation -Will continue one-to-one -Appreciate mental health continuing to follow-up with her daily -Continue home medication regimen (4) COPD (chronic obstructive pulmonary disease): Status: Chronic Assessment and plan: - Does not appear in acute exacerbation at this time as she is not wheezing -Will continue home regimen, will also continue 40 mg p.o. prednisone daily that was started in the emergency department (5) Obesity hypoventilation syndrome: Assessment and plan: - As noted above History of Present Illness History of Present Illness Chief Complaint: SOB Narrative: 49-year-old female with a past medical history of COPD, obesity hypoventilation syndrome with chronic hypoxic respiratory failure on 2 L nasal cannula at bedtime, and depression with episodes of suicidal ideation and need for inpatient psychiatry who initially presented to the emergency department with suicidal ideation. Patient initially presented to the emergency department the early evening of 12/27/2024 when she was expressing suicidal ideation and asked for evaluation for inpatient psych stay. At that time she was in her usual state of health and was evaluated by mental health and determined to be appropriate for inpatient psychiatry services and would be held in the emergency department under voluntary status until a bed was available. However, being in the afternoon of 12/30/2024 the patient was noted as having increased oxygen requirements, requiring up to 3 L nasal cannula during the day and up to 5 L at night. Chest x-ray was performed and showed bilateral infiltrates consistent with a pneumonia, at which time she was started on azithromycin and prednisone in addition to continuation of her outpatient COPD medication regimen. Given the patient's new oxygen requirement secondary to community-acquired pneumonia, emergency room physician paged hospitalist for admission for patient with community-acquired pneumonia and acute on chronic hypoxic respiratory failure. Review of Systems All systems reviewed & are unremarkable except as noted in HPI and below PFSH All Active Problems (Updated 12/31/24 @ 11:07 by ELLEN LEWIS) Hypertension (Chronic) Acute exacerbation of chronic obstructive pulmonary disease (Acute) Pneumonia (Acute) COPD (chronic obstructive pulmonary disease) (Chronic) Acute on chronic respiratory failure with hypoxia (Acute) CAP (community acquired pneumonia) (Acute) Auditory hallucinations (Acute) Depression with suicidal ideation (Acute) Feeling suicidal (Acute) Spinal stenosis (Acute) Migraine (Chronic) Nicotine dependence, cigarettes, uncomplicated (Acute) Vitamin D deficiency (Acute) Tobacco abuse (Chronic) Medical History (Updated 12/31/24 @ 11:07 by ELLEN LEWIS) CAP (community acquired pneumonia) Left ventricular hypertrophy Obesity hypoventilation syndrome Schizoaffective disorder Post traumatic stress disorder Hyperlipidemia Asthma H/O suicide attempt ADHD Anxiety Bipolar disorder Non-insulin dependent diabetes mellitus Obesity (BMI 30.0-34.9) Hypertension Surgical History Status post bilateral salpingectomy S/P cholecystectomy Family History Other Adopted Social History Smoking/Tobacco Use Status: Current every day Tobacco Type: cigarettes Smoking packs per day: 0.25 Smoking cigarettes per day: 5.0 Years smoked: 40 Smoking pack-years: 10.00 Tobacco: How many years used: 40 Smoking risk assessment performed?: Yes Alcohol Intake: never Drug use: Occasionally Substance use type: marijuana Details: smokes marijuana about once per month 01/11/24 Housing: apartment Do you feel safe at home: Yes Do you feel safe in your relationship?: Yes Additional Social history: Lives with on [address] in [facility]. She is disabled with her medical and mental health conditions. 22 year old daughter in [place]. Meds Allergies and Home Medications Allergies Allergy/AdvReac Type Severity Reaction Status Date / Time bee pollen Allergy Hives Verified 12/27/24 13:38 hazelnut Allergy Hives Verified 12/27/24 13:38 peanut Allergy hallucinati Verified 12/27/24 13:38 on tree nut Allergy hallucinati Verified 12/27/24 13:38 on gabapentin AdvReac Severe vomiting Verified 12/27/24 13:38 varenicline (From Chantix) AdvReac Intermediate depression Verified 12/27/24 13:38 amoxicillin AdvReac Nausea Verified 12/27/24 13:38 fluoxetine (From Prozac) AdvReac Nausea Verified 12/27/24 13:38 trazodone AdvReac Weight gain Verified 12/27/24 13:38 abelox Allergy Hives Uncoded 12/27/24 13:38 Home Medications ?Medication ?Instructions ?Recorded ?Confirmed ?Type divalproex 500 mg tablet,delayed 1,000 mg PO HS 01/18/20 12/27/24 History release (Depakote) lisinopril 20 mg tablet 20 mg PO DAILY 01/18/20 12/27/24 History risperidone 2 mg tablet (Risperdal) 6 mg PO HS 01/18/20 12/27/24 History ibuprofen 800 mg tablet 800 mg PO BID PRN PRN 11/20/22 12/27/24 History Oxygen #1 ea 12/13/22 12/27/24 Rx spironolactone 25 mg tablet 25 mg PO DAILY #30 tabs 05/06/23 12/27/24 Rx furosemide 20 mg tablet (Lasix) 20 mg PO DAILY #14 tabs 06/13/23 12/27/24 Rx empagliflozin 25 mg tablet 25 mg PO DAILY 12/15/23 12/27/24 History (Jardiance) buspirone 30 mg tablet 30 mg PO BID 02/09/24 12/27/24 History cyclobenzaprine 10 mg tablet 10 mg PO BID PRN PRN muscle spasm 02/09/24 12/27/24 History omeprazole 20 mg capsule,delayed 20 mg PO DAILY 02/09/24 12/27/24 History release escitalopram oxalate 20 mg tablet 20 mg PO DAILY 02/13/24 12/27/24 History pregabalin 50 mg capsule (Lyrica) 50 mg PO BID 06/21/24 12/27/24 History mometasone-formoterol HFA 200 2 puff inhalation BID #13 grams 08/04/24 12/27/24 Rx mcg-5 mcg/actuation aerosol inhaler (Dulera) tiotropium bromide 2.5 2 puff inhalation DAILY #4 grams 08/04/24 12/27/24 Rx mcg/actuation mist for inhalation (Spiriva Respimat) atomoxetine 40 mg capsule 80 mg PO DAILY 08/19/24 12/27/24 History melatonin 10 mg capsule 10 mg PO HS PRN PRN 08/19/24 12/27/24 History prazosin 5 mg capsule 10 mg PO QHS 08/20/24 12/27/24 History azithromycin 250 mg tablet 250 mg PO DAILY #90 tabs 12/15/24 12/27/24 Rx ipratropium 0.5 mg-albuterol 3 mg 3 ml UPD Q4H PRN PRN shortness of 12/15/24 12/27/24 Rx (2.5 mg base)/3 mL nebulization breath or wheezing #540 mL soln albuterol sulfate 2.5 mg/3 mL 2.5 mg inhalation Q4H PRN PRN 12/27/24 12/27/24 History (0.083 %) solution for nebulization albuterol sulfate 90 mcg/actuation 2 puff inhalation Q6H PRN PRN 12/27/24 12/27/24 History aerosol inhaler shortness of breath or wheezing ondansetron 4 mg disintegrating 4 mg PO Q8H PRN PRN nausea and 12/27/24 12/27/24 History tablet vomiting Exam Narrative Exam Narrative: Well-appearing female laying in bed in no acute distress, ANO x 4, heart regular rhythm, lungs clear to auscultation bilaterally, abdomen soft, nontender, nondistended, patient stated that she is depressed but did not verbalize any direct suicidal ideation to me Results Labs 12/27/24 14:43 12/27/24 14:43 Last Vital Signs Temp 97.9 F 12/31/24 08:10 Pulse 99 H 12/31/24 08:10 Resp 22 12/30/24 13:21 BP 175/65 H 12/31/24 08:10 Pulse Ox 93 12/31/24 08:10 Time Spent Time spent with Patient: >75 minutes Time was spent: preparing to see the patient(eg.review tests), obtaining and/or reviewing separately otained hiistory, ordering medications,tests, procedures, referring, communicating with other health animal caretaker supervisor, indepentently interpreting results, counseling the patient and care coordination
[2024-12-31] MEDS: Tiotropium Bromide-Respimat 10 PUFF INH 2 PUFF IH ×2 (09:28→09:32)
[2024-12-31] MEDS: Budesonide/Formoterol 160/4.5 6 GM 60 PUFF INH IH ×2 (09:28→20:57)
[2024-12-31] MEDS: busPIRone 15 MG TAB 30 MG PO ×2 (09:29→20:35)
[2024-12-31] MEDS: Escitalopram 20 MG TAB PO (09:29)
[2024-12-31] MEDS: Empaglifozin 25 MG TAB PO (09:29)
[2024-12-31] MEDS: predniSONE 20 MG TAB 40 MG PO (09:29)
[2024-12-31] MEDS: Lisinopril 10 MG TAB 20 MG PO (09:29)
[2024-12-31] MEDS: Omeprazole 20 MG CAPCR PO (09:29)
[2024-12-31] MEDS: Pregabalin 50 MG CAP PO ×2 (09:29→20:37)
[2024-12-31] MEDS: Furosemide 20 MG TAB PO (09:29)
[2024-12-31] MEDS: Spironolactone 25 MG TAB PO (09:29)
--- NOTE | 2024-12-31 11:00 | W.PC.ACHO ---
Registration Status: Primary Language: Preferred Language: ED Information & Data Chief Complaint PsychEval 12/27/24 13:48 Chief Complaint PsychEval 12/27/24 13:43 Triage Note pt feeling suicidal, plans 12/27/24 13:34 to take all her pills at once. has significant mental health hx Medical / Surgical History (Last Updated 12/31/24 @ 08:48 by Toribio Bravo MD) CAP (community acquired pneumonia) Left ventricular hypertrophy Obesity hypoventilation syndrome Schizoaffective disorder Post traumatic stress disorder Hyperlipidemia Asthma H/O suicide attempt ADHD Anxiety Bipolar disorder Non-insulin dependent diabetes mellitus Obesity (BMI 30.0-34.9) Hypertension (Last Reviewed 11/29/24 @ 22:32 by Ronaldo Cole MD) Status post bilateral salpingectomy S/P cholecystectomy Most Recent Vital Signs Temperature 36.6 C 12/31/24 08:10 Temperature Source Tympanic 12/30/24 13:21 Pulse 99 H 12/31/24 08:10 Respiratory Rate 20 12/31/24 08:47 Respiratory Effort Normal, Short of Breath 12/31/24 08:47 Respiratory Depth Shallow 12/31/24 08:47 Respiratory Pattern Normal 12/31/24 08:47 Blood Pressure 175/65 H 12/31/24 08:10 Pulse Oximetry 93 12/31/24 08:10 Oxygen Delivery Method Nasal Cannula 12/31/24 08:10 Oxygen Flow Rate 3 12/31/24 08:10 Comment RN made aware of abnormal vital signs 12/27/24 14:36 Allergies bee pollen Allergy (Verified 12/27/24 13:38) Hives hazelnut Allergy (Verified 12/27/24 13:38) Hives peanut Allergy (Verified 12/27/24 13:38) hallucination tree nut Allergy (Verified 12/27/24 13:38) hallucination gabapentin Adverse Reaction (Severe, Verified 12/27/24 13:38) vomiting vomiting varenicline (From Chantix) Adverse Reaction (Intermediate, Verified 12/27/24 13:38) depression amoxicillin Adverse Reaction (Verified 12/27/24 13:38) Nausea fluoxetine (From Prozac) Adverse Reaction (Verified 12/27/24 13:38) Nausea trazodone Adverse Reaction (Verified 12/27/24 13:38) Weight gain abelox Allergy (Uncoded 12/27/24 13:38) Hives Active Medications Generic Name Dose Route Start Last Admin Trade Name Freq PRN Reason Stop Dose Admin Albuterol Sulfate 2.5 mg 12/27/24 14:55 12/30/24 13:21 Albuterol 2.5 Mg/3 Ml Inh Soln Vial IH 2.5 mg Q4H PRN PRN Administration Albuterol/Ipratropium 3 ml 12/27/24 14:44 12/31/24 02:15 Albuterol/Ipratropium 3 Ml Upd Vial UPD 3 ml Q4H PRN PRN Administration shortness of breath or wheezing Budesonide/Formoterol Fumarate 2 puff 12/27/24 20:00 12/31/24 09:28 Budesonide/Formoterol 160/4.5 6 Gm 60 Puff Inh IH 2 puff BID MITA Administration Buspirone HCl 30 mg 12/27/24 20:00 12/31/24 09:29 Buspirone 15 Mg Tab PO 30 mg BID MITA Administration Divalproex Sodium 1,000 mg 12/27/24 20:00 12/30/24 20:37 Divalproex 500 Mg Tabec PO 1,000 mg HS MITA Administration Empagliflozin 25 mg 12/28/24 08:30 12/31/24 09:29 Empaglifozin 25 Mg Tab PO 25 mg DAILY MITA Administration Escitalopram Oxalate 20 mg 12/28/24 08:30 12/31/24 09:29 Escitalopram 20 Mg Tab PO 20 mg DAILY MITA Administration Furosemide 20 mg 12/28/24 08:30 12/31/24 09:29 Furosemide 20 Mg Tab PO 20 mg DAILY MITA Administration Lisinopril 20 mg 12/28/24 08:30 12/31/24 09:29 Lisinopril 10 Mg Tab PO 20 mg DAILY MITA Administration Melatonin 9 mg 12/27/24 15:04 12/29/24 23:38 Melatonin 3 Mg Tab PO 9 mg HS PRN PRN Administration Omeprazole 20 mg 12/28/24 08:30 12/31/24 09:29 Omeprazole 20 Mg Capcr PO 20 mg DAILY MITA Administration Ondansetron HCl 4 mg 12/27/24 14:55 12/31/24 08:34 Ondansetron O.D.T. 4 Mg Tabef PO 4 mg Q8H PRN PRN Administration nausea and vomiting Patient's Own 2 each 12/28/24 08:30 12/31/24 09:31 Medication ( PO Not Given Atomoxetine 40 Mg DAILY MITA Capsule) Prazosin HCl 10 mg 12/27/24 20:00 12/30/24 20:36 Prazosin 5 Mg Cap PO 10 mg HS MITA Administration Prednisone 40 mg 12/30/24 20:35 12/31/24 09:29 Prednisone 20 Mg Tab PO 01/03/25 23:55 40 mg DAILY MITA Administration Pregabalin 50 mg 12/27/24 20:00 12/31/24 09:29 Pregabalin 50 Mg Cap PO 50 mg BID MITA Administration Risperidone 6 mg 12/27/24 20:00 12/30/24 20:36 Risperidone 1 Mg Tab PO 6 mg HS MITA Administration Spironolactone 25 mg 12/28/24 08:30 12/31/24 09:29 Spironolactone 25 Mg Tab PO 25 mg DAILY MITA Administration Tiotropium [place] 2 puff 12/28/24 08:30 12/31/24 09:32 Tiotropium [place]-Respimat 10 Puff Inh IH 2 puff DAILY MITA Administration [id number] Documentation Fingerstick Glucose Start: 12/29/24 07:42 Freq: Status: Active Protocol: Activity Type Activity Date Activity User E-sign Co-sign Detail Recorded Client Recorded Date Recorded By Document 12/29/24 07:41 BKG DAEMON(3) [id number] 12/29/24 07:42 BKG DAEMON(4) Intake and Output - 24 Hour Total 12/27/24 13:26 thru 12/27/24 13:34 Weight 90.718 kg Falls Risk Assessment History of Falls No History 12/27/24 13:48 Contributing Factors No Factors 12/27/24 13:48 Ambulatory Aids Independent 12/27/24 13:48 Tubes/Lines None 12/27/24 13:48 Gait Evaluation No gait disturbance 12/27/24 13:48 Fall Total Score 0 12/27/24 13:48 Level of Risk Standard/Low Risk 12/27/24 13:48 Problems (Last Updated 12/31/24 @ 08:48 by Toribio Bravo MD) COPD (chronic obstructive pulmonary disease) (Chronic) Acute on chronic respiratory failure with hypoxia (Acute) CAP (community acquired pneumonia) (Acute) Auditory hallucinations (Acute) Depression with suicidal ideation (Acute) Notes 12/30/24 11:50 Nursing Notes by Loree Zazueta Nursing Note: VS obtained yesterday showed that the patient required oxygen during the day instead of just as night as the patient had previously stated she only uses oxygen at night. The patient denied any feelings of being short of breath or struggling to breath, however; she was sating in the low 80s. She was moved to room 5 in the main ED where she could have continuous oxygen on. During the night, it was reported that they needed to increase her oxygen to 4L due to desating in the low 80s while sleeping. This brought her up to the low 90s and high 80s, where our target level was. We have been able to decrease the oxygen to 2 L and she is maintaining high 80s to low 90s, but does require continuous oxygen at this time. A POC covid/flu was obtained, which came back negative. The nurse from [facility] called to see how she was doing. She was notified that the patient now requires continuous oxygen. She checked with their medical team and have denied the patient at this time due to her oxygen requirements. Dr. Blue has been notified of the decline by his facility. Initialized on 12/30/24 11:50 - END OF NOTE 12/27/24 17:53 Nursing Notes by Aretha Salter Pt receiving neb treatment in the [facility]. Initialized on 12/27/24 17:53 - END OF NOTE v v v v v v v v v Sending and/or Receiving Nurses: Please use comment section below to note any information pertinent to the patient hand-off not included above. Information / Comments: Report received from: Beth WRIGHT called ED at 10am to get report on pt, but ED was unable to take the call at the time. ED called back at 10:45 and this RN took report for primary nurse. Pt will need a CPSO for SI, room has already been stripped.
[2024-12-31] MEDS: Enoxaparin 40 MG/0.4 ML SYR SC (11:59)
--- NOTE | 2024-12-31 16:42 | MHPN_ITS ---
Date of service: 12/31/24 Time of Service: 10:00 Mental Health Emergency Note Release [facility] release signed:: Yes Reason for Visit Client is feeling actively SI due to hearing a voice that tells her to end her life. Client seeking inpatient treatment. In the last 2 weeks has the pt presented for ES prior to today?: Yes, presented at Client Information Client is: Adult Outpatient and Substance use Well Housed: Yes Non Suicidal Self Injury Current: Yes, Client was considering ODing on prescribed medication. History: yes, Client planned on carrying out this plan at home. Safety Risk/Harm to Self or Others Current Ideation to Harm Self or Others: Yes to self. Intent: yes, has intent. Plan: yes,has a plan. Risk: Does risk to harm exist?: yes. Risk: Moderate Risk Duty to warn indicated: No Asssessment/Mental Status Appearance: Unremarkable Attitude: Cooperative and Friendly Behavior: Unremarkable Speech: Normal Affect: Normal Mood: Stressed and Anxious Thought process: Unremarkable Hallucinations: yes, Auditory Delusions: yes, Persectory/Paranoid Attention: Unremarkable Perception: Not impaired Orientation: Fully orientated Memory: Intact Insight: Fair Judgement: Fair Neurovegetative Symptoms Sleep: No change Appetitie: No change Interests: No change Energy: No change Impression Ms Boudreaux is a 49 year old female who is and lives with her in [facility] in a apartment. This client presented to this clinician in the ER on oxygen as her levels were low. This client is seeking in patient treatment as she has heard voices telling her to kill herself and reports being Sad and Depressed. This client reports struggling to sleep the night before in zone b as she doesn't have her oxygen there. The client reports her mood as Sad and Depressed and feels about the same today as yesterday. This client Denies SI and HI. This client states that she had some toast for breakfast. The client states that she feels like she still needs and wants in patient treatment. This client is waiting voluntarily in the [facility] ED. Plan/Disposition Recommended Disposition: Hospitalization facilities contacted. Plan: Client is waiting in the ED seeking inpatient treatment. Person reported agreement to plan: Yes Facilities contacted if Applicable [facility] Not accepted, Other [facility] Not accepted, Other [facility] Not accepted, Other, [facility] Not accepted, Other Reports/communication Outcome discussed with: ED/Personnel
--- NOTE | 2024-12-31 17:17 | CMSP_ITS ---
Date of service: 12/31/24 Time of Service: 17:17 Care Management Safety Plan Status Status: Voluntary Reason for Wait Reason for Wait: Inpatient Admission Safety Plan Safety Plan: VOLUNTARY FOR INPATIENT PSYCHIATRIC STABILIZATION.? Patient is appropriate in all interactions since arriving at [facility]; Pt has demonstrated appropriate coping and communication skills, has articulated his or her needs and concerns and is fully engaged during staff interactions. Safety plan has been established with patient, and care team, to adhere to patient goals, identify restrictions based on behavioral status, address nutrition, and determine allowed personal belongings, tools for hygiene and personal care. Determine level of activity including ambulation, level of supervision, visitors, and determine privileges based on behaviors and level of engagement by pt. VOLUNTARY SAFETY PLAN: 1. Will remain on suicide precautions, in paper clothes 2. Will remain in Zone B under direct supervision of one-on-one staff at all times provided by CPSO; MARLEE, [employer] middle [employer] sports coach. 3. May have paper cups, plates, finger foods as well as a cardboard spoon with which to eat meals. 4. Follow [facility] Management of the Admitted Behavioral Health Patient policy. 5. Shower available in Zone B without restriction. 6. Personal belongings-soft items permitted at RN discretion. No Personal Cell Phone. 7. Visitors- at RN discretion. 8. Activities: soft cart items approved per RN discretion. 9.? Bathroom available in Zone B without restriction. 10. Phone: limited to [facility] cordless phone at RN discretion. Due to VOLUNTARY status, if patient wishes to leave [facility], staff will contact [facility] Crisis Screener ([phone]) and Learning Design Specialist ([phone]) as soon as p ossible. In the event of elopement, notify [facility] Police ([phone]). Patient is currently voluntarily at [facility] and seeking inpatient admission when a bed becomes available. [facility] Frontline Medical Videographer will continue seeking placement. Please contact the Learning Design Specialist ([phone]) and [facility] Medical Videographer ([phone]) for any needed changes in the Safety Plan. Safety plan has been provided to interdepartmental care team.
--- NOTE | 2024-12-31 17:18 | PDOC.CMPRO ---
Date of service: 12/31/24 Time of Service: 17:18 Care Management Progress Note Progress Note Text Progress Note Text: Cecilia was sitting up in bed when CM met with her. She stated that she is not feeling well, medically, but she denied SI. She stated that being away from home has helped some, but she is also anxious to return home to see her two cats, Binx and Lumpy. She stated that she is worried about her getting into an argument with their neighbor, whom he has been having a feud with over shoveling/snow blowing. CM discussed this with her, and encouraged her to focus on what she can control at this time, which is how she is feeling. She stated that she feels it will make her feel better if she can get ahold of her , to make sure he is alright; CM validated this concern. Cecilia is able to use the [facility] cordless phone for phone calls, as long as they are supportive, and that she remains stable and calm; CM explained this to Cecilia, and she expressed understanding. CM discussed the process with Cecilia, stating that the safety plan in place will remain until she is medically cleared, and at that time, [facility] will come in to assess her again. Her discharge plan will depend on this assessment; she will either return home with a safety plan in place vs continue seeking voluntary inpatient psychiatric treatment. CM huddled with staff on [facility] including the primary RN and CC; the plan was reviewed. CM advised that personal cell phone use is restricted, but she can use the cordless phone, at RN discretion. If Cecilia continues to report that she is no longer feeling SI tomorrow, CM may ask [facility] to complete a reassessment, without medical clearance, with the intent to discontinue SI precautions, if appropriate. [facility] reserves the right to decline completing a reassessment while the patient is not medically cleared. At this time, safety plan is in place; no changes from yesterday. Referrals are placed on hold due to Cecilia's medical status. CM will continue to follow. Social Determinants of Health Screening Social Determinants of Health last assessed: 12/31/24 Will the Patient Participate in the Screening?: Yes Do you worry about having a steady place to live?: no Problems where you live: no known problems In the past 12 months, have you had to go without electric, gas, oil or water in your home?: no Have you or anyone in your house had to go without enough food to eat?: no Has lack of transportation kept you from medical appointments or from doing things needed for daily living?: no Has anyone in your life made you feel unsafe or unsupported?: no How hard is it for you to pay for the very basics like food, housing, medical care, and heating? Would you say it is:: Somewhat hard Do you want help finding or keeping work or a job?: I do not need or want help If for any reason you need help with day-to-day activities such as bathing, preparing meals, shopping, managing finances, etc., do you get the help you need?: I don?t need any help How often do you feel lonely or isolated from those around you?: Never Do you speak a language other than Azeri at home?: Yes Does the patient want assistance with any of the above?: No Health Related Social Needs Health related social needs: problems related to housing/economic circumstances (Z59.89) and education (Z55.6)
[2024-12-31] MEDS: Divalproex 500 MG TABEC 1000 MG PO (20:34)
[2024-12-31] MEDS: Prazosin 5 MG CAP 10 MG PO (20:34)
[2024-12-31] MEDS: risperiDONE 1 MG TAB 6 MG PO (20:35)
[2024-12-31] MEDS: Melatonin 3 MG TAB 9 MG PO (20:36)
[2024-12-31] MEDS: Cyclobenzaprine 10 MG TAB PO (20:36)
[2024-12-31] MEDS: Azithromycin 250 MG TAB PO (20:37)
[2025-01-01] VITALS (18 sets, daily range): BP systolic 148–180; BP diastolic 82–92; PULSE 100–135; RESP 18–23; TEMP 36.5–38.3; O2SAT 83–95
[2025-01-01] MEDS: LORazepam 1 MG TAB PO (00:31)
[2025-01-01 06:53] LABS: HCT 45.1 % (36.0-46.0); HGB 14.1 g/dL (11.2-15.7); MCH 27.8 pg (27.0-33.0); MCHC 31.3 % (32.0-36.0); MCV 89 fL (80-95); MPV 9.3 fL (8.0-11.0); Platelet Count 160 10^3/uL (130-400); RBC 5.07 10^6/uL (3.93-5.22); RDW 16.2 % (11.7-14.6); RDW-SD 53.7 fL
[2025-01-01 07:00] LABS: Anion Gap -0.6 mmol/L (3-11); BUN 19 mg/dL (7-18); CO2 38.6 mmol/L (21.0-32.0); Calcium 8.6 mg/dL (8.5-10.1); Chloride 103 mmol/L (98-107); Estimated GFR 68.63 (mL/min/1.73m2); Glucose 127 mg/dL (74-106); Potassium 4.2 mmol/L (3.5-5.1); Sodium 141 mmol/L (136-145)
[2025-01-01] MEDS: Budesonide/Formoterol 160/4.5 6 GM 60 PUFF INH IH ×2 (08:04→20:07)
[2025-01-01] MEDS: Tiotropium Bromide-Respimat 10 PUFF INH 2 PUFF IH (08:05)
[2025-01-01] MEDS: busPIRone 15 MG TAB 30 MG PO ×2 (08:18→20:41)
[2025-01-01] MEDS: Furosemide 20 MG TAB PO (08:18)
[2025-01-01] MEDS: Pregabalin 50 MG CAP PO ×2 (08:18→20:42)
[2025-01-01] MEDS: Spironolactone 25 MG TAB PO (08:18)
[2025-01-01] MEDS: Lisinopril 10 MG TAB 20 MG PO (08:18)
[2025-01-01] MEDS: Omeprazole 20 MG CAPCR PO (08:18)
[2025-01-01] MEDS: Escitalopram 20 MG TAB PO (08:19)
[2025-01-01] MEDS: predniSONE 20 MG TAB 40 MG PO (08:19)
[2025-01-01] MEDS: Empaglifozin 25 MG TAB PO (08:19)
[2025-01-01] MEDS: Enoxaparin 40 MG/0.4 ML SYR SC (08:19)
--- NOTE | 2025-01-01 10:03 | W.PM.PROGNOT ---
Date of Service Date of service: 01/01/25 Time of Service: 10:03 Assessment and Plan Assessment and plan (1) CAP (community acquired pneumonia): Status: Acute Assessment and plan: - Patient admitted to have bilateral worsening hypoxic respiratory failure while awaiting inpatient psych placement, chest x-ray on 12/30/2024 that showed infiltrates suggestive of pneumonia - Previous negative COVID/flu, but now influenza+ positive as below -Was started on azithromycin, will continue -Ceftriaxone added Blood C&S pending (2) Influenza A: Status: Acute Assessment and plan: Upper respiratory viral panel positive for influenza A Initiate Oseltamivir Droplet precautions (3) Acute on chronic respiratory failure with hypoxia: Status: Acute Assessment and plan: -Patient requires 2 L of supplemental oxygen at night for combination of obesity hypoventilation and COPD -However, as noted above she developed worsening hypoxia with daytime oxygen requirement and increased nighttime oxygen requirement -Currently on 3 L nasal cannula, wean for goal oxygen saturation of 88 to 92% -Continue at bedtime oxygen (4) Depression with suicidal ideation: Status: Acute Assessment and plan: -Patient initially presented to the emergency department concerns for suicidal ideation and was in the ED from 12/27/24 -Voluntarily palcement pending , and has been seen by mental health daily -Continue to work on inpatient psych for suicidal ideation -Continue one-to-one -Appreciate mental health continuing to follow-up with her daily but d/t Influenza - will se her when medically cleared -On home medication regimen (5) COPD (chronic obstructive pulmonary disease): Status: Chronic Assessment and plan: - NO S& S of acute exacerbation at this time as she is not wheezing -Continue home regimen, will also continue 40 mg p.o. prednisone daily intitiated in the emergency department (6) Obesity hypoventilation syndrome: Assessment and plan: - As noted above - consider nutrition consult OPT when not further SI Discussed with Dr. Peralta Subjective Subjective Patient reports: no new complaints, feels better, tolerating liquids well, tolerating a regular diet, voiding w/o difficulty and other (No SI but feels that she could change her mind and want to still seek voluntary placement); denies diarrhea, vomiting, shortness of breath or fever Exam Narrative Exam Narrative: Constitutional The patient is bed comfortable without acute distress Neuro:alert and oriented to self, person, place, time and situation. No neurological focal deficit Resp: Clear upper lung bilaterally, coarse right base - Cardio: regular rhythm, S1, S2, no murmur bilateral radial and dorsalis pedis pulses are positive, palpable GI: Abdomen is not distended, soft and non tender, bowel sounds are present : Negative Costovertebral angle tenderness, no bladder distension Back/spine/Pelvis: No back tenderness, normal alignment Integumentary: No skin lesions or rash Extremities: strength 5/5 to bilateral lower and upper extremities Psych: RASS 0, congruent mood and normal affect. Objective Last Vital Signs Temp 36.6 C 01/01/25 08:15 Pulse 122 H 01/01/25 10:00 Resp 23 01/01/25 10:00 BP 180/92 H 01/01/25 08:15 Pulse Ox 85 L 01/01/25 10:00 Laboratory Results - last 24 hr 01/01/25 06:35 WBC 7.30 RBC 5.07 Hgb 14.1 Hct 45.1 MCV 89 MCH 27.8 MCHC 31.3 L RDW 16.2 H Plt Count 160 MPV 9.3 Sodium 141 Potassium 4.2 Chloride 103 Carbon Dioxide 38.6 H Anion Gap -0.6 L BUN 19 H Creatinine 1.0 Est GFR (CKD-EPI 2020) 68.63 Glucose 127 H Calcium 8.6 Magnesium 2.0 Time Spent with Patient Time Spent with Patient: >50 minutes Time was spent: preparing to see the patient(eg.review tests), obtaining and/or reviewing separately otained hiistory, ordering medications,tests, procedures, referring, communicating with other health post acute care nurse, indepentently interpreting results, counseling the patient and care coordination
[2025-01-01 11:11] LABS: COVID-19 PCR Negative (Negative); Influenza A PCR Positive (Negative); Influenza B PCR Negative (Negative); RSV PCR Negative (Negative)
[2025-01-01 11:12] LABS: Source Nasopharynx
[2025-01-01] MEDS: guaiFENesin 600 MG TABCR PO ×2 (12:12→20:41)
[2025-01-01] MEDS: cefTRIAXone 1 GM/50 ML BAG IVPB (12:13)
[2025-01-01] MEDS: Oseltamivir 75 MG CAP PO ×2 (15:18→20:41)
[2025-01-01] MEDS: Normal Saline Flush 10 ML SYR IVP (20:39)
[2025-01-01] MEDS: Prazosin 5 MG CAP 10 MG PO (20:40)
[2025-01-01] MEDS: risperiDONE 1 MG TAB 6 MG PO (20:40)
[2025-01-01] MEDS: Divalproex 500 MG TABEC 1000 MG PO (20:42)
[2025-01-01] MEDS: Azithromycin 250 MG TAB PO (20:42)
[2025-01-02 00:31] VITALS: BP 158/80; PULSE 85; TEMP 36.2; O2SAT 89
[2025-01-02 07:02] LABS: Absolute Basophil Count 0.06 10^3/uL (0.0-0.2); HCT 43.2 % (36.0-46.0); HGB 13.3 g/dL (11.2-15.7); MCH 27.8 pg (27.0-33.0); MCHC 30.8 % (32.0-36.0); MCV 90 fL (80-95); MPV 9.6 fL (8.0-11.0); Platelet Count 148 10^3/uL (130-400); RBC 4.78 10^6/uL (3.93-5.22); RDW 15.9 % (11.7-14.6); RDW-SD 53.3 fL; WBC 6.29 10^3/uL (4.4-10.8)
[2025-01-02] MEDS: Empaglifozin 25 MG TAB PO (07:30)
[2025-01-02] MEDS: predniSONE 20 MG TAB 40 MG PO (07:30)
[2025-01-02] MEDS: Spironolactone 25 MG TAB PO (07:30)
[2025-01-02] MEDS: busPIRone 15 MG TAB 30 MG PO (07:30)
[2025-01-02] MEDS: Omeprazole 20 MG CAPCR PO (07:30)
[2025-01-02] MEDS: Oseltamivir 75 MG CAP PO ×2 (07:30→18:05)
[2025-01-02] MEDS: Escitalopram 20 MG TAB PO (07:30)
[2025-01-02] MEDS: Furosemide 20 MG TAB PO (07:30)
[2025-01-02] MEDS: Pregabalin 50 MG CAP PO (07:30)
[2025-01-02] MEDS: Lisinopril 10 MG TAB 20 MG PO (07:31)
[2025-01-02] MEDS: guaiFENesin 600 MG TABCR PO (07:31)
[2025-01-02] MEDS: Enoxaparin 40 MG/0.4 ML SYR SC (07:31)
[2025-01-02] MEDS: Normal Saline Flush 10 ML SYR IVP (07:31)
[2025-01-02 07:39] VITALS: BP 161/77; PULSE 90; RESP 18; TEMP 36.2; O2SAT 92
[2025-01-02 07:56] LABS: Absolute Eosinophil Count 0.06 10^3/uL (0.0-0.7); Absolute Lymphocyte Count 2.01 10^3/uL (1.2-3.4); Absolute Monocyte Count 0.38 10^3/uL (0.1-0.8); Atypical Lymphocytes % 0 %; Bands % 6 %
[2025-01-02 07:57] LABS: Anisocytosis 1+; Diff Comment Manual Differential; Hypochromasia 1+; Metamyelocytes % 3; Myelocytes % 3; Other Cells % 0; Promyelocytes % 0
[2025-01-02] MEDS: Tiotropium Bromide-Respimat 10 PUFF INH 2 PUFF IH (08:11)
[2025-01-02] MEDS: Budesonide/Formoterol 160/4.5 6 GM 60 PUFF INH IH (08:15)
[2025-01-02] MEDS: Ondansetron O.D.T. 4 MG TABEF PO (09:15)
[2025-01-02] MEDS: cefTRIAXone 1 GM/50 ML BAG IVPB (09:59)
[2025-01-02 11:40] VITALS: PULSE 89; O2SAT 77
[2025-01-02 11:45] VITALS: BP 159/84; PULSE 89; RESP 20; TEMP 36.3; O2SAT 90
[2025-01-02 14:10] VITALS: O2SAT 92
--- NOTE | 2025-01-02 17:08 | W.PM.DS.N ---
Date of service: 01/02/25 Time of Service: 17:09 DS: Diagnosis Discharge Diagnosis (1) CAP (community acquired pneumonia): Status: Acute (2) Influenza A: Status: Acute (3) Acute on chronic respiratory failure with hypoxia: Status: Acute (4) Depression with suicidal ideation: Status: Acute (5) COPD (chronic obstructive pulmonary disease): Status: Chronic (6) Obesity hypoventilation syndrome: Discharge Plan Disposition Patient Disposition: Home W/Home Health Services Condition: Improving Discharge Details Reason For Visit: CAP, acute on chronic hypoxic respiratory failure Admit Date/Time: 12/31/24 08:40 Admit Provider: Toribio Bravo Attending Provider: Toribio Bravo Primary Care Provider: BRYCE SMITH Hospital Course Hospital Course: This 49 years old female patient with past medical history of COPD, obesity hypoventilation syndrome with chronic hypoxic respiratory failure on 2 L cannula at home at bedtime, depression with episodes of suicidal ideation with last occurrence on 12/27/2024 and awaiting for voluntary inpatient placement at a psychiatric facility in the emergency room at [facility] developed increased oxygen requirements requiring up to 3 L via nasal cannula during the day and up to 5 L at night. Workup in the ED showed bilateral infiltrates consistent with pneumonia for which azithromycin and prednisone was initiated in the ED in addition to her outpatient COPD medication regimen. The hospitalist team admitted the patient for acute on chronic hypoxic respiratory failure and currently acquired pneumonia. During the stay, an upper respiratory viral panel was performed resulting in positive influenza A. Ceftriaxone IV was added to the patient regimen as well as Tamiflu. The patient oxygen requirement went back to baseline, she was able to ambulate in the room without distress. The patient remained hemodynamically stable, afebrile. Blood cultures grew no new pathogen at 24 hours. The patient was medically clear for discharge. The patient expressed no further suicidal ideation and denied feeling any sadness. [facility] mental services re-evaluated the patient concerning her suicidal ideation and cleared her. [facility] deemed her to be safe for discharge home. The patient will be discharged home with follow-up with primary care practitioner within 7 days of discharge. Discussed with Dr. Peralta Home Meds and New Rx's Prescriptions: New azithromycin 250 mg Tablet 250 mg PO DAILY@2000 Qty: 3 0RF cefpodoxime 200 mg tablet 200 mg PO BID Qty: 6 0RF Rx Instructions: must administer with a meal/food oseltamivir [Tamiflu] 75 mg capsule 75 mg PO BID 5 Days Qty: 10 0RF prednisone 20 mg tablet 40 mg PO DAILY Qty: 4 0RF Continued (DME) Oxygen Tank See Rx Instructions .Route Qty: 1 0RF Rx Instructions: 2LPM with exertion pregabalin [Lyrica] 50 mg capsule 50 mg PO BID Patient Comments: prescribed by JAMES Jennings ipratropium-albuterol 0.5 mg-3 mg(2.5 mg base)/3 mL solution for nebulization 3 ml UPD Q4H PRN PRN (Reason: shortness of breath or wheezing) Qty: 540 12RF azithromycin 250 mg tablet 250 mg PO DAILY Qty: 90 4RF Jardiance 25 mg tablet 25 mg PO DAILY Dulera 200-5 mcg/actuation HFA aerosol inhaler 2 puff inhalation BID Qty: 13 12RF Rx Instructions: Rinse mouth after use Spiriva Respimat 2.5 mcg/actuation mist 2 puff inhalation DAILY Qty: 4 12RF buspirone 30 mg tablet 30 mg PO BID Patient Comments: reports she is taking 60mg BID cyclobenzaprine 10 mg tablet 10 mg PO BID PRN PRN (Reason: muscle spasm) omeprazole 20 mg capsule,delayed release(DR/EC) 20 mg PO DAILY lisinopril 20 mg Tablet 20 mg PO DAILY divalproex [Depakote] 500 mg Tablet,Delayed Release (Dr/Ec) 1,000 mg PO HS risperidone [Risperdal] 2 mg Tablet 6 mg PO HS spironolactone 25 mg Tablet 25 mg PO DAILY Qty: 30 0RF escitalopram oxalate 20 mg tablet 20 mg PO DAILY Patient Comments: TAKE 1 TABLET BY MOUTH DAILY atomoxetine 40 mg capsule 80 mg PO DAILY Patient Comments: TAKE two CAPSULE BY MOUTH EVERY MORNING melatonin 10 mg capsule 10 mg PO HS PRN PRN prazosin 5 mg capsule 10 mg PO QHS Patient Comments: TAKE TWO CAPSULES BY MOUTH EVERY EVENING AT BEDTIME ibuprofen 800 mg tablet 800 mg PO BID PRN PRN Patient Comments: TAKE ONE TABLET BY MOUTH TWICE A DAY NEEDED furosemide [Lasix] 20 mg tablet 20 mg PO DAILY Qty: 14 0RF albuterol sulfate 2.5 mg /3 mL (0.083 %) solution for nebulization 2.5 mg inhalation Q4H PRN PRN albuterol sulfate 90 mcg/actuation HFA aerosol inhaler 2 puff inhalation Q6H PRN PRN (Reason: shortness of breath or wheezing) ondansetron 4 mg tablet,disintegrating 4 mg PO Q8H PRN PRN (Reason: nausea and vomiting) Discharge Instructions Referrals: BRYCE SMITH, MONITORING TECH [Primary Care Provider] - (Follow-up within 7 days of discharge with primary care practitioner please) Activity:: Activity as Tolerated Equipment/Supplies:: Oxygen (L/min Below) Diet:: Heart healthy Discharge Orders Discharge Orders: Discharge Order (Routine); Ordered 01/02/25 Ordered By: Lucy Lilly DS: Summary Time Spent with Patient providing and/or coordinating discharge services: Greater than 30 minutes Status at Discharge Functional status at discharge: independent ambulation Overall status at discharge: patient is progressing back to baseline Mental Status: mental status grossly normal Speech and Movement: speech and movement normal Mood: congruent mood Affect: normal affect Quality:SDOH Health Related Social Needs: Health related social needs problems related to housing/economic circumstances (Z59.89), education (Z55.6) Exam Narrative Exam Narrative: Constitutional The patient is bed comfortable without acute distress Neuro:alert and oriented to self, person, place, time and situation. No neurological focal deficit Resp: Clear upper lung bilaterally, coarse right base - Cardio: regular rhythm, S1, S2, no murmur bilateral radial and dorsalis pedis pulses are positive, palpable GI: Abdomen is not distended, soft and non tender, bowel sounds are present : Negative Costovertebral angle tenderness, no bladder distension Back/spine/Pelvis: No back tenderness, normal alignment Integumentary: No skin lesions or rash Extremities: strength 5/5 to bilateral lower and upper extremities Psych: RASS 0, congruent mood and normal affect. Psych Mental Status: mental status grossly normal Speech and Movement: speech and movement normal Mood: congruent mood Affect: normal affect DS: Data Vitals/I&O Vitals and I&O: Vital Signs Temperature 36.3 C L 01/02/25 11:45 Temperature Source Temporal Artery Scan 01/02/25 11:45 Pulse 89 01/02/25 11:45 Pulse Rhythm Regular 12/31/24 11:08 Respiratory Rate 20 01/02/25 11:45 Respiratory Effort Normal 12/31/24 11:08 Respiratory Depth Normal 12/31/24 11:08 Respiratory Pattern Normal 12/31/24 11:08 Blood Pressure 159/84 H 01/02/25 11:45 Pulse Oximetry 92 01/02/25 14:10 Oxygen Delivery Method Nasal Cannula 01/02/25 14:10 Oxygen Flow Rate 2 01/02/25 14:10 Pain Level 0 01/02/25 14:09 Comment Pt had fallen asleep with O2 off. Lips appeared dusky. O2 checked and was as noted above. Put back on 2L O2 01/02/25 11:40 Intake & Output 01/01/25 01/02/25 01/02/25 23:59 11:59 23:59 Intake Total 2660 / 3020 1370 / 1970 600 / 1970 Output Total 2500 / 2500 1650 / 2350 700 / 2350 Balance 160 / 520 -280 / -380 -100 / -380 Intake: IV 60 / 60 50 / 50 Oral 2600 / 2960 1320 / 1920 600 / 1920 Output: Urine 2500 / 2500 1650 / 2350 700 / 2350 Other: Urine Color Pale Yellow Yellow Yellow Urine Appearance Clear Clear Clear Urine Odor Normal None None Comment pT voided independently Unsure if more, Pt emptied hat. But has been at least 200 each time she urinated Stool Size Moderate Stool Characteristics Soft Liquid Formed Liquid Data Completed and Pending Labs on day of discharge: Labs from last 24 hours 01/02/25 06:30 WBC 6.29 RBC 4.78 Hgb 13.3 Hct 43.2 MCV 90 MCH 27.8 MCHC 30.8 L RDW 15.9 H Plt Count 148 MPV 9.6 Immature Gran % 0.0 Neutrophils % 48.0 Band Neutrophils % 6 Lymphocytes % 32.0 Atypical Lymphs % 0 Monocytes % 6.0 Eosinophils % 1.0 Basophils % 1.0 Metamyelocytes % 3 Myelocytes % 3 Promyelocytes % 0 Other Cells % 0 Nucleated RBC % 0.0 Absolute Neutrophils 3.40 Absolute Lymphocytes 2.01 Absolute Monocytes 0.38 Absolute Eosinophils 0.06 Absolute Basophils 0.06 RBC Morphology See Below Hypochromasia 1+ Anisocytosis 1+ Preliminary micro results at discharge 01/01/25 10:40 Blood Culture - Preliminary Blood NO GROWTH 24 HOURS 01/01/25 10:30 Blood Culture - Preliminary Blood NO GROWTH 24 HOURS PFSH All Active Problems (Updated 01/01/25 @ 13:34 by Lucy Lilly APRN) Influenza A (Acute) Hypertension (Chronic) Acute exacerbation of chronic obstructive pulmonary disease (Acute) Pneumonia (Acute) COPD (chronic obstructive pulmonary disease) (Chronic) Acute on chronic respiratory failure with hypoxia (Acute) CAP (community acquired pneumonia) (Acute) Auditory hallucinations (Acute) Depression with suicidal ideation (Acute) Feeling suicidal (Acute) Spinal stenosis (Acute) Migraine (Chronic) Nicotine dependence, cigarettes, uncomplicated (Acute) Vitamin D deficiency (Acute) Tobacco abuse (Chronic) Medical History (Updated 01/01/25 @ 13:34 by Lucy Lilly APRN) CAP (community acquired pneumonia) Left ventricular hypertrophy Obesity hypoventilation syndrome Schizoaffective disorder Post traumatic stress disorder Hyperlipidemia Asthma H/O suicide attempt ADHD Anxiety Bipolar disorder Non-insulin dependent diabetes mellitus Obesity (BMI 30.0-34.9) Hypertension Surgical History Status post bilateral salpingectomy S/P cholecystectomy Family History Other Adopted Social History Smoking/Tobacco Use Status: Current every day Tobacco Type: cigarettes Smoking packs per day: 0.25 Smoking cigarettes per day: 5.0 Years smoked: 40 Smoking pack-years: 10.00 Tobacco: How many years used: 40 Smoking risk assessment performed?: Yes Alcohol Intake: never Drug use: Occasionally Substance use type: marijuana Details: smokes marijuana about once per month 01/11/24 Housing: apartment Do you feel safe at home: Yes Do you feel safe in your relationship?: Yes Additional Social history: Lives with on [address] [place] [facility]. She is disabled with her medical and mental health conditions. 22 year old daughter in [place]. Time Spent with Patient Time Spent with Patient: 70-84 minutes4 Time was spent: preparing to see the patient(eg.review tests), obtaining and/or reviewing separately otained hiistory, ordering medications,tests, procedures, referring, communicating with other health child care aide, indepentently interpreting results, counseling the patient and care coordination
--- NOTE | 2025-01-02 18:02 | RESPIRATORY ---
Pt doscharged home today with [email or web address] Ginger brown from the [employer] [facility]. Scott has regulator rental number #[id number].
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
== END 2025-01-02 18:12 | disposition home health service (06) | DRG 190 ==
LOC: ER 12-31 09:26 → MS 12-31 11:14
PROVIDERS: Emergency Medicine; Nurse Practitioner Acute Care; Admitting Provider Family Medicine; Emergency Provider Student in an Organized Health Care Education/Training Program; PCP Nurse Practitioner Family; Visit Provider Family Medicine
DX: J44.0 Chronic obstructive pulmonary disease with (acute) lower respiratory infection (principal); J10.00 Influenza due to other identified influenza virus with unspecified type of pneumonia; J96.21 Acute and chronic respiratory failure with hypoxia; J18.9 Pneumonia, unspecified organism; R45.851 Suicidal ideations; E66.2 Morbid (severe) obesity with alveolar hypoventilation; Z68.37 Body mass index [BMI] 37.0-37.9, adult; Z59.89 Other problems related to housing and economic circumstances; Z60.8 Other problems related to social environment; Z99.81 Dependence on supplemental oxygen; I10 Essential (primary) hypertension; M48.00 Spinal stenosis, site unspecified; G43.809 Other migraine, not intractable, without status migrainosus; F17.200 Nicotine dependence, unspecified, uncomplicated; E55.9 Vitamin D deficiency, unspecified; F25.9 Schizoaffective disorder, unspecified; F43.10 Post-traumatic stress disorder, unspecified; F90.9 Attention-deficit hyperactivity disorder, unspecified type; F31.9 Bipolar disorder, unspecified; E78.5 Hyperlipidemia, unspecified; Z91.51 Personal history of suicidal behavior; E11.9 Type 2 diabetes mellitus without complications; F12.90 Cannabis use, unspecified, uncomplicated
CPT/HCPCS: 00123; 36410; 36415; 36416; 80048; 80307; 82962; 85027; 87040; 87637; 94640; 96127; 96372; 99283; 99285; J1650; 71046; 80329; 83735; 84703; 85025; 94664; 94667; 94668; 94760; 99223; 99233; 99239; J0696; J1885; J7512; J7613; J7620

== ENCOUNTER 2025-01-16 03:50 | Emergency (ER) | payer MEDICARE, MEDICAID, SELFPAY ==
[2025-01-16 03:50] VITALS: BP 189/90; PULSE 97; RESP 19; TEMP 35.7; O2SAT 94
[2025-01-16 04:44] LABS: Bilirubin Negative (Negative); Blood Small (Negative); Clarity Clear (Clear); Glucose 100 mg/dL (Negative); Ketones Negative (Negative); Leukocyte Esterase Negative (Negative); Nitrite Negative (Negative); Specific Gravity >= 1.030 (1.005-1.025); Urobilinogen 0.2 mg/dL (Up to 0.2); WBC 0-2 HPF (0-5)
[2025-01-16 04:45] LABS: Bacteria Few HPF (Negative); C & S Indicated? No; Casts 0-2 Hyaline LPF (Negative); Crystals Negative HPF (Negative); Epithelial Cells Few HPF (Negative); Mucus Negative (Negative)
[2025-01-16 04:55] LABS: Abs Immature Grans 0.13 10^3/uL (0.0-0.06); Absolute Basophil Count 0.06 10^3/uL (0.0-0.2); Absolute Lymphocyte Count 2.46 10^3/uL (1.2-3.4); Absolute Monocyte Count 0.73 10^3/uL (0.1-0.8); Basophils % 0.5 %; Eosinophils % 0.9 %; HCT 42.1 % (36.0-46.0); Immature Grans % 1.2 %; Lymphocytes % 21.8 %; MCH 28.1 pg (27.0-33.0); MCHC 30.9 % (32.0-36.0); MCV 91 fL (80-95); MPV 9.2 fL (8.0-11.0); Monocytes % 6.5 %; Neutrophils % 69.1 %; Platelet Count 197 10^3/uL (130-400); RBC 4.63 10^6/uL (3.93-5.22); RDW 17.1 % (11.7-14.6); RDW-SD 56.8 fL; WBC 11.28 10^3/uL (4.4-10.8)
[2025-01-16 04:56] LABS: Absolute Neutrophil Count 7.79 10^3/uL (1.2-6.7)
--- NOTE | 2025-01-16 05:02 | ED.GENADUL_ITS ---
Discharge Plan Discharge Details Chief Complaint: PsychEval Primary Care Provider: BRYCE SMITH ED Provider: Benja Gómez Home Meds and New Rx's Prescriptions: No Action (DME) Oxygen Tank See Rx Instructions .Route Qty: 1 0RF Rx Instructions: 2LPM with exertion pregabalin [Lyrica] 50 mg capsule 50 mg PO BID Patient Comments: prescribed by Bryce Smith PCP ipratropium-albuterol 0.5 mg-3 mg(2.5 mg base)/3 mL solution for nebulization 3 ml UPD Q4H PRN PRN (Reason: shortness of breath or wheezing) Qty: 540 12RF azithromycin 250 mg tablet 250 mg PO DAILY Qty: 90 4RF Jardiance 25 mg tablet 25 mg PO DAILY Dulera 200-5 mcg/actuation HFA aerosol inhaler 2 puff inhalation BID Qty: 13 12RF Rx Instructions: Rinse mouth after use Spiriva Respimat 2.5 mcg/actuation mist 2 puff inhalation DAILY Qty: 4 12RF buspirone 30 mg tablet 30 mg PO BID Patient Comments: reports she is taking 60mg BID cyclobenzaprine 10 mg tablet 10 mg PO BID PRN PRN (Reason: muscle spasm) lisinopril 20 mg Tablet 20 mg PO DAILY divalproex [Depakote] 500 mg Tablet,Delayed Release (Dr/Ec) 1,000 mg PO HS risperidone [Risperdal] 2 mg Tablet 6 mg PO HS spironolactone 25 mg Tablet 25 mg PO DAILY Qty: 30 0RF escitalopram oxalate 20 mg tablet 20 mg PO DAILY Patient Comments: TAKE 1 TABLET BY MOUTH DAILY atomoxetine 40 mg capsule 98 mg PO DAILY Patient Comments: TAKE two CAPSULE BY MOUTH EVERY MORNING melatonin 10 mg capsule 10 mg PO HS PRN PRN prazosin 5 mg capsule 10 mg PO QHS Patient Comments: TAKE TWO CAPSULES BY MOUTH EVERY EVENING AT BEDTIME ibuprofen 800 mg tablet 800 mg PO BID PRN PRN Patient Comments: TAKE ONE TABLET BY MOUTH TWICE A DAY NEEDED furosemide [Lasix] 20 mg tablet 20 mg PO DAILY Qty: 14 0RF albuterol sulfate 2.5 mg /3 mL (0.083 %) solution for nebulization 2.5 mg inhalation Q4H PRN PRN albuterol sulfate 90 mcg/actuation HFA aerosol inhaler 2 puff inhalation Q6H PRN PRN (Reason: shortness of breath or wheezing) azithromycin 250 mg Tablet 250 mg PO DAILY@2000 Qty: 3 0RF cefpodoxime 200 mg tablet 200 mg PO BID Qty: 6 0RF Rx Instructions: must administer with a meal/food lorazepam 0.5 mg tablet 0.5 mg PO DAILY PRN Patient Comments: TAKE ONE TABLET BY MOUTH EVERY DAY NEEDED FOR SEVERE ANXIETY sertraline 100 mg tablet 150 mg PO DAILY Patient Comments: TAKE ONE AND ONE-HALF TABLETS BY MOUTH EVERY DAY atomoxetine 18 mg capsule 18 mg PO DAILY Patient Comments: TAKE ONE CAPSULE BY MOUTH EVERY MORNING, TAKE WITH 80MG FOR TOTAL OF 98MG DA YEN atomoxetine 80 mg capsule 80 mg PO DAILY Patient Comments: TAKE ONE CAPSULE BY MOUTH EVERY DAY WITH 18MG TO MAKE A TOTAL OF 98MG DAILY HPI General Date/Time Provider Initiated Documentation: 01/16/25 04:17 . HPI Narrative: Patient presents emergency department stating that she is suicidal and depressed. She comes here often but this time she says she really feels she wants to kill herself Related Data Home Medications ?Medication ?Instructions ?Recorded ?Confirmed divalproex 500 mg tablet,delayed 1,000 mg PO HS 01/18/20 01/16/25 release (Depakote) lisinopril 20 mg tablet 20 mg PO DAILY 01/18/20 01/16/25 risperidone 2 mg tablet (Risperdal) 6 mg PO HS 01/18/20 01/16/25 ibuprofen 800 mg tablet 800 mg PO BID PRN PRN 11/20/22 01/16/25 Oxygen #1 ea 12/13/22 01/16/25 spironolactone 25 mg tablet 25 mg PO DAILY #30 tabs 05/06/23 01/16/25 furosemide 20 mg tablet (Lasix) 20 mg PO DAILY #14 tabs 06/13/23 01/16/25 empagliflozin 25 mg tablet 25 mg PO DAILY 12/15/23 01/16/25 (Jardiance) buspirone 30 mg tablet 30 mg PO BID 02/09/24 01/16/25 cyclobenzaprine 10 mg tablet 10 mg PO BID PRN PRN muscle spasm 02/09/24 01/16/25 escitalopram oxalate 20 mg tablet 20 mg PO DAILY 02/13/24 01/16/25 pregabalin 50 mg capsule (Lyrica) 50 mg PO BID 06/21/24 01/16/25 mometasone-formoterol HFA 200 2 puff inhalation BID #13 grams 08/04/24 01/16/25 mcg-5 mcg/actuation aerosol inhaler (Dulera) tiotropium bromide 2.5 2 puff inhalation DAILY #4 grams 08/04/24 01/16/25 mcg/actuation mist for inhalation (Spiriva Respimat) atomoxetine 40 mg capsule 98 mg PO DAILY 08/19/24 01/16/25 melatonin 10 mg capsule 10 mg PO HS PRN PRN 08/19/24 01/16/25 prazosin 5 mg capsule 10 mg PO QHS 08/20/24 01/16/25 azithromycin 250 mg tablet 250 mg PO DAILY #90 tabs 12/15/24 01/16/25 ipratropium 0.5 mg-albuterol 3 mg 3 ml UPD Q4H PRN PRN shortness of 12/15/24 01/16/25 (2.5 mg base)/3 mL nebulization breath or wheezing #540 mL soln albuterol sulfate 2.5 mg/3 mL 2.5 mg inhalation Q4H PRN PRN 12/27/24 01/16/25 (0.083 %) solution for nebulization albuterol sulfate 90 mcg/actuation 2 puff inhalation Q6H PRN PRN 12/27/24 01/16/25 aerosol inhaler shortness of breath or wheezing azithromycin 250 mg tablet 250 mg PO DAILY@1999 #3 tabs 01/02/25 01/16/25 cefpodoxime 200 mg tablet 200 mg PO BID #6 tabs 01/02/25 01/16/25 atomoxetine 18 mg capsule 18 mg PO DAILY 01/16/25 01/16/25 atomoxetine 80 mg capsule 80 mg PO DAILY 01/16/25 01/16/25 lorazepam 0.5 mg tablet 0.5 mg PO DAILY PRN 01/16/25 01/16/25 sertraline 100 mg tablet 150 mg PO DAILY 01/16/25 01/16/25 Previous Rx's ?Medication ?Instructions ?Recorded Oxygen #1 ea 12/13/22 spironolactone 25 mg tablet 25 mg PO DAILY #30 tabs 05/06/23 furosemide 20 mg tablet (Lasix) 20 mg PO DAILY #14 tabs 06/13/23 mometasone-formoterol HFA 200 2 puff inhalation BID #13 grams 08/04/24 mcg-5 mcg/actuation aerosol inhaler (Dulera) tiotropium bromide 2.5 2 puff inhalation DAILY #4 grams 08/04/24 mcg/actuation mist for inhalation (Spiriva Respimat) azithromycin 250 mg tablet 250 mg PO DAILY #90 tabs 12/15/24 ipratropium 0.5 mg-albuterol 3 mg 3 ml UPD Q4H PRN PRN shortness of 12/15/24 (2.5 mg base)/3 mL nebulization breath or wheezing #540 mL soln azithromycin 250 mg tablet 250 mg PO DAILY@1999 #3 tabs 01/02/25 cefpodoxime 200 mg tablet 200 mg PO BID #6 tabs 01/02/25 Allergies Allergy/AdvReac Type Severity Reaction Status Date / Time bee pollen Allergy Hives Verified 01/16/25 03:58 hazelnut Allergy Hives Verified 01/16/25 03:58 peanut Allergy hallucinati Verified 01/16/25 03:58 on tree nut Allergy hallucinati Verified 01/16/25 03:58 on gabapentin AdvReac Severe vomiting Verified 12/27/24 13:38 varenicline (From Chantix) AdvReac Intermediate depression Verified 01/16/25 03:58 amoxicillin AdvReac Nausea Verified 01/16/25 03:58 fluoxetine (From Prozac) AdvReac Nausea Verified 01/16/25 03:58 trazodone AdvReac Weight gain Verified 01/16/25 03:58 abelox Allergy Hives Uncoded 01/16/25 03:58 General Stated Complaint: PsychEval ZACK: 2 Review of Systems Narrative: Review of Systems: Constitutional: No fevers, chills, sweats Eye: No recent visual problems ENT: No ear pain, nasal congestion, sore throat Respiratory: No shortness of breath, cough Cardiovascular: No Chest pain, palpitations, syncope Gastrointestinal: No nausea, vomiting, diarrhea Genitourinary: No hematuria Artemio/Lymph: Negative for bruising tendency, swollen lymph glands Endocrine: Negative for excessive thirst, excessive hunger Musculoskeletal: No back pain, neck pain, joint pain, muscle pain, decreased range of motion Integumentary: No rash, pruritus, abrasions Neurologic: Alert & oriented X 4 Exam Narrative Exam Narrative: Exam; vitals signs as reported above normal Constitutional; In no acute distress, afebrile General: cooperative, healthy appearing, comfortable and no acute distress HEENT: Head: normal to inspection, no palpable skull fracture and normocephalic a traumatic Eyes: : appearance normal, both eyes and all related structures EOM intact bilaterally Pupils: PERRL : conjunctiva normal Direct ophthalmoscopy: normal light reflex, normal conjunctiva, normal visual acuity Ears: Normal TM, normal external canal Nose: normal no rhinorreha Neck no JVD, supple non tender Neck: normal visual inspection, full ROM and no lymphadenopathy Chest: normal inspection of the chest Respiratory : normal respiratory effort and able to speak in complete sentences no wheezing no rales Cardio Rate: regular rate, rhythm: regular rhythm normal heart sounds S1 and S2 no murmurs, gallops, or rubs GI : normal to inspection, normal bowel sounds, soft, non tender, non distended, no organomegaly Back/Spine/ no CVA tenderness Thoracic/Lumbar Spine: no tenderness or deformities Skin no rashes or lesions Neuro: patient alert oriented x 4 and no meningeal signs, Cranial Nerves: CN's II-XI intact bilaterally, Cognition: normal cognition, Speech: speech normal, Gait: normal gait, Depp tendon reflexes normal 2+ muscle strength 5/5 bilaterally Extremities, no edema, full range of motion, normal strength Psychiatric: Depressed with suicidal ideation but no plan Course Vital Signs Vital signs: Vital Signs Temperature 35.7 C L 01/16/25 03:50 Pulse 97 H 01/16/25 03:50 Respiratory Rate 19 01/16/25 03:50 Blood Pressure 189/90 H 01/16/25 03:50 Pulse Oximetry 94 01/16/25 03:50 Temperature 35.7 C L 01/16/25 03:50 Temperature Source Temporal Artery Scan 01/16/25 03:50 Pulse 97 H 01/16/25 03:50 Respiratory Rate 19 01/16/25 03:50 Blood Pressure 189/90 H 01/16/25 03:50 Blood Pressure Position Sitting 01/16/25 03:50 Pulse Oximetry 94 01/16/25 03:50 Oxygen Delivery Method Nasal Cannula 01/16/25 03:50 Oxygen Flow Rate 3 02/23/25 03:50 Pain Level 9 01/16/25 03:50 Lab/Test Results Lab/Test Results: Laboratory Tests Range/Units 01/16/25 01/16/25 04:05 04:35 WBC (4.4-10.8) 10^3/uL 11.28 H RBC (3.93-5.22) 10^6/uL 4.63 Hgb (11.2-15.7) g/dL 13.0 Hct (36.0-46.0) % 42.1 MCV (80-95) fL 91 MCH (27.0-33.0) pg 28.1 MCHC (32.0-36.0) % 30.9 L RDW (11.7-14.6) % 17.1 H Plt Count (130-400) 10^3/uL 197 MPV (8.0-11.0) fL 9.2 Immature Gran % % 1.2 Neutrophils % % 69.1 Lymphocytes % % 21.8 Monocytes % % 6.5 Eosinophils % % 0.9 Basophils % % 0.5 Nucleated RBC % (0.0-0.3) % 0.0 Absolute Neutrophils (1.2-6.7) 10^3/uL 7.79 H Absolute Lymphocytes (1.2-3.4) 10^3/uL 2.46 Absolute Monocytes (0.1-0.8) 10^3/uL 0.73 Absolute Eosinophils (0.0-0.7) 10^3/uL 0.10 Absolute Basophils (0.0-0.2) 10^3/uL 0.06 Urine Color (Yellow) Yellow Urine Clarity (Clear) Clear Urine pH (5-8) 7.0 Ur Specific [place] (1.005-1.025) >= 1.030 H Urine Protein (Neg-Trace) mg/dL >=300 H Urine Ketones (Negative) mg/dL Negative Urine Blood (Negative) Small H Urine Nitrite (Negative) Negative Urine Bilirubin (Negative) Negative Urine Urobilinogen (Up to 0.2) mg/dL 0.2 Ur Leukocyte Esterase (Negative) Negative Urine RBC (0-2) HPF 5-10 H Urine WBC (0-5) HPF 0-2 Ur Epithelial Cells (Negative) HPF Few Urine Crystals (Negative) HPF Negative Urine Bacteria (Negative) HPF Few Urine Casts (Negative) LPF 0-2 Hyaline Urine Mucus (Negative) Negative Ur Culture Indicated? No Urine Glucose (Negative) mg/dL 100 H Medical Decision Making MDM: Summary: Patient who voices suicidal ideation her labs are unremarkable and she has been seen by the [facility] crisis services who feels this time she is to be reevaluated today Data Review Analysis All the data on this patient was reviewed by me including laboratory and imaging studies as well as bedside studies performed by me Independent review of Studies Imaging Lab: Labs unremarkable Risk Stratification: Patient will be observed and reevaluated in several hours to see if she needs to be hospitalized as an inpatient Differential Diagnosis: 1. Depression 2. Anxiety 3. Suicidality 4. 5. Consultants: [facility] crisis service Shared disposition: Impression: Quality:SDOH Health Related Social Needs: Health related social needs feeling lonely/isolated (Z 60.8) PFSH All Active Problems Influenza A (Acute) Hypertension (Chronic) Acute exacerbation of chronic obstructive pulmonary disease (Acute) Pneumonia (Acute) COPD (chronic obstructive pulmonary disease) (Chronic) CAP (community acquired pneumonia) (Acute) Depression with suicidal ideation (Acute) Feeling suicidal (Acute) Spinal stenosis (Acute) Migraine (Chronic) Nicotine dependence, cigarettes, uncomplicated (Acute) Vitamin D deficiency (Acute) Tobacco abuse (Chronic) Medical History Auditory hallucinations CAP (community acquired pneumonia) Left ventricular hypertrophy Obesity hypoventilation syndrome Schizoaffective disorder Post traumatic stress disorder Hyperlipidemia Asthma H/O suicide attempt ADHD Anxiety Bipolar disorder Non-insulin dependent diabetes mellitus Obesity (BMI 30.0-34.9) Hypertension Surgical History Status post bilateral salpingectomy S/P cholecystectomy Family History Other Adopted Social History Smoking/Tobacco Use Status: Current every day Tobacco Type: cigarettes Smoking packs per day: 0.25 Smoking cigarettes per day: 5.0 Years smoked: 40 Smoking pack-years: 10.00 Tobacco: How many years used: 40 Smoking risk assessment performed?: Yes Alcohol Intake: never Drug use: Occasionally Substance use type: marijuana Details: smokes marijuana about once per month 01/11/24 Housing: apartment Do you feel safe at home: Yes Do you feel safe in your relationship?: Yes Additional Social history: Lives with on [address] in [facility]. She is disabled with her medical and mental health conditions. 22 year old daughter in [place].
[2025-01-16 05:15] LABS: ALT 9 U/L (14-59); AST 33 U/L (15-37); Albumin 2.2 g/dL (3.4-5.0); Alkaline Phosphatase 96 U/L (46-116); Anion Gap 4.2 mmol/L (3-11); BUN 12 mg/dL (7-18); Bilirubin, Total 0.23 mg/dL (0.2-1.0); CO2 28.8 mmol/L (21.0-32.0); CREATININE 0.9 mg/dL (0.55-1.02); Calcium 8.4 mg/dL (8.5-10.1); Chloride 106 mmol/L (98-107); Estimated GFR 77.88 (mL/min/1.73m2); Glucose 183 mg/dL (74-106); Potassium 4.6 mmol/L (3.5-5.1); Sodium 139 mmol/L (136-145); Total Protein 6.9 g/dL (6.4-8.2)
[2025-01-16 05:17] LABS: *AMPHETAMINES SCREEN URINE Negative (Negative); *BARBITURATES SCREEN URINE Negative (Negative); *BENZODIAZEPINES SCREEN URINE Negative (Negative); Cannabinoids THC Positive (Negative); Cocaine Screen,Urine Negative (Negative); METHADONE URINE SCREEN Negative (Negative); OPIATES URINE SCREEN Negative (Negative)
[2025-01-16 05:19] LABS: Tricyclic Antidepressants Positive (Negative)
--- NOTE | 2025-01-16 06:16 | PDOC.MHCN ---
Date of service: 01/16/25 Time of Service: 05:30 PHQ-9 Over the last 2 weeks, how often have you been bothered by any of the following problems? 1. Little interest or pleasure in doing things: nearly every day 2. Feeling down, depressed, or hopeless: nearly every day 3. Trouble falling or staying asleep, or sleeping too much: nearly every day 4. Feeling tired or having little energy: nearly every day 5. Poor appetite or overeating: nearly every day 6. Feeling bad about yourself - or that you are a failure or have let yourself and your family down: nearly every day 7. Trouble concentrating on things, such as reading the newspaper or watching television: nearly every day 8. Moving or speaking so slowly that other people could have noticed? - Or the opposite - being so fidgety or restless that you have been moving around a lot more than usual: nearly every day 9. Thoughts that you would be better off or of hurting yourself in some way: nearly every day Total score: 27 If you checked off any problems, how difficult have these problems made it for you to do your work, take care of things at home, or get along with other people?: extremely difficult PHQ-9 Results: Positive Source: Developed by Drs. Ronaldo Zamudio, Brandy Mitchell, Luis Amanda and colleagues, with an educational pablo from [employer]. Suicide Severity Rate CSSRS Have you wished you were or wished you could go to sleep and not wake up?: Yes Have you actually had any thoughts of killing yourself?: Yes CSSRS2 Have you been thinking about how you might do this?: Yes Have you had these thoughts and had some intention of acting on them?: Yes Have you started to work out or worked out the details of how to kill yourself? Do you intend to carry out this plan?: Yes CSSRS3 Have you ever done anything, started to do anything or prepared to do anything to end your life?: No CSSRS4 Was this within the past three months?: No Screening Score Total Score: 4 Screening: Positive Mental Health Emergency Note Release [facility] release signed:: Yes Reason for Visit The client is known to [facility] and currently receives services through the adult outpatient program. Per chart review the client has cancelled appointments with therapist Dalila Griffith. Per the clients report she has been hospitalized voluntarily at [place] about 3 months ago. Earlier this morning the client outreaches to [facility] dispatch and requests to speak to mental health. This literary writer makes contact with the client via phone where the client reports that she is endorsing SI. This literary writer offers a mobile crisis response, however she declines stating that she needs to go to the hospital. The client called 911 and requested transport. The client presents to [facility] via [facility] for SI with intent and plan. This literary writer assesses the client via telehealth. In the last 2 weeks has the pt presented for ES prior to today?: Yes, presented at [facility] ED Client Information Client is: Adult Outpatient Well Housed: Yes Non Suicidal Self Injury Current: No History: No Safety Risk/Harm to Self or Others Current Ideation to Harm Self or Others: Yes to self. (The client endorsing SI with plan to overdose on medications. Intent 09/02) Intent: yes, has intent. Plan: yes,has a plan. History of suicide attempt: No history of suicide attempt reported Risk: Does risk to harm exist?: yes. Access to means: No. Risk: Moderate Risk Asssessment/Mental Status Appearance: Disheveled Attitude: Cooperative Behavior: Unremarkable Speech: Soft and Slow Affect: Flat and Cogruent with mood Mood: Depressed Thought process: Unremarkable Hallucinations: yes, Auditory Delusions: No Attention: Unremarkable Perception: Not impaired Orientation: Fully orientated Memory: Intact Insight: Fair Judgement: Fair Neurovegetative Symptoms Sleep: Decrease Appetitie: Disordered Interests: Decrease Energy: Decrease Libido: Not applicable Substance Use: Do you use nicotine?: Yes Have you used substances in the last 7 days?: No Additional Issues: Assaultive/Threatening Behavior: No Medical Concerns: No Client engaged in active self harm w/weapon: No Threatening to run away: No Child reported abuse/neglect: No Voluntarily presenting for services: Yes Domestic violence is a concern: No Extreme Psychosis or extreme behavior is present: No Impression The client is a 49 year old female who lives with her in [facility] in a apartment. The client identifies as female and uses she/her pronouns. This client presented to this clinician in the ER on oxygen as her levels were low. All screening tools are completed and all under represented categories are honored. The client presents with symptoms most congruent to a major depressive disorder as evidenced by self-report, increase in suicidal ideations, disorganized eating and sleep, and feelings of worthlessness. The client reports coming to [facility] due to having suicidal thoughts and not feeling herself. The client states she hears a perfecto voice telling her to hurt herself and that she is ugly. The client is continuing to endorse suicidal ideations as well as intent and plan. Based on this writers assessment the client appears to be a person in need of treatment. Plan/Disposition Recommended Disposition: Hospitalization No. Plan: The client will remain at [facility] ED on voluntary status pending admission to an inpatient facility. Referrals will be faxed to all hospitals. The client will be re-assessed daily until placement is secured or the client is able to be safety planned back to the community. Person reported agreement to plan: Yes Reports/communication Outcome discussed with: ED/Personnel (Verbal given to Dr. Gómez)
--- NOTE | 2025-01-16 07:41 | ED.PROG_ITS ---
Date of service: 01/16/25 Time of Service: 07:41 Medical Decision Making In brief, this is a 49-year-old female patient with a past medical history significant for schizoaffective disorder, asthma, hypertension, and hypoventilation syndrome requiring nighttime oxygen, in our emergency department with suicidal ideation with plan. She is boarding voluntarily awaiting reassessment by [facility]. Prior to my taking over their care, the patient was medically cleared, and has been resting comfortably. They have met with the social psychologist and we are awaiting final dispo. They have not required any additional medications for restraint or sedation. The patient met with [facility] and is desiring for discharge to home, a safety plan was completed and at this time, the patient has had a full medical evaluation and is safe for discharge to home. They are hemodynamically stable, ambulatory, and tolerating PO. They are understanding of the follow-up plan and return precautions. They left our facility without incident. Mel Mallory MD Medical Records Medical records reviewed: Yes I reviewed the patient's medical records. Lab Data Lab results reviewed: Yes I reviewed the patient's lab results. Quality:SDOH Health Related Social Needs: Health related social needs feeling lonely/isolated (Z 60.8) Discharge Plan Disposition Patient Disposition: Home Condition: Stable Discharge Details Clinical Impression: Depression with suicidal ideation, COPD (chronic obstructive pulmonary disease), Hypertension Primary Care Provider: BRYCE SMITH ED Provider: Mel Mallory Home Meds and New Rx's Prescriptions: No Action (DME) Oxygen Tank See Rx Instructions .Route Qty: 1 0RF Rx Instructions: 2LPM with exertion pregabalin [Lyrica] 50 mg capsule 50 mg PO BID Patient Comments: prescribed by JAMES Jennings ipratropium-albuterol 0.5 mg-3 mg(2.5 mg base)/3 mL solution for nebulization 3 ml UPD Q4H PRN PRN (Reason: shortness of breath or wheezing) Qty: 540 12RF azithromycin 250 mg tablet 250 mg PO DAILY Qty: 90 4RF Jardiance 25 mg tablet 25 mg PO DAILY Dulera 200-5 mcg/actuation HFA aerosol inhaler 2 puff inhalation BID Qty: 13 12RF Rx Instructions: Rinse mouth after use Spiriva Respimat 2.5 mcg/actuation mist 2 puff inhalation DAILY Qty: 4 12RF buspirone 30 mg tablet 30 mg PO BID Patient Comments: reports she is taking 60mg BID cyclobenzaprine 10 mg tablet 10 mg PO BID PRN PRN (Reason: muscle spasm) lisinopril 20 mg Tablet 20 mg PO DAILY divalproex [Depakote] 500 mg Tablet,Delayed Release (Dr/Ec) 1,000 mg PO HS risperidone [Risperdal] 2 mg Tablet 6 mg PO HS spironolactone 25 mg Tablet 25 mg PO DAILY Qty: 30 0RF escitalopram oxalate 20 mg tablet 20 mg PO DAILY Patient Comments: TAKE 1 TABLET BY MOUTH DAILY atomoxetine 40 mg capsule 98 mg PO DAILY Patient Comments: TAKE two CAPSULE BY MOUTH EVERY MORNING melatonin 10 mg capsule 10 mg PO HS PRN PRN prazosin 5 mg capsule 10 mg PO QHS Patient Comments: TAKE TWO CAPSULES BY MOUTH EVERY EVENING AT BEDTIME ibuprofen 800 mg tablet 800 mg PO BID PRN PRN Patient Comments: TAKE ONE TABLET BY MOUTH TWICE A DAY NEEDED furosemide [Lasix] 20 mg tablet 20 mg PO DAILY Qty: 14 0RF albuterol sulfate 2.5 mg /3 mL (0.083 %) solution for nebulization 2.5 mg inhalation Q4H PRN PRN albuterol sulfate 90 mcg/actuation HFA aerosol inhaler 2 puff inhalation Q6H PRN PRN (Reason: shortness of breath or wheezing) azithromycin 250 mg Tablet 250 mg PO DAILY@2000 Qty: 3 0RF cefpodoxime 200 mg tablet 200 mg PO BID Qty: 6 0RF Rx Instructions: must administer with a meal/food lorazepam 0.5 mg tablet 0.5 mg PO DAILY PRN Patient Comments: TAKE ONE TABLET BY MOUTH EVERY DAY NEEDED FOR SEVERE ANXIETY sertraline 100 mg tablet 150 mg PO DAILY Patient Comments: TAKE ONE AND ONE-HALF TABLETS BY MOUTH EVERY DAY atomoxetine 18 mg capsule 18 mg PO DAILY Patient Comments: TAKE ONE CAPSULE BY MOUTH EVERY MORNING, TAKE WITH 80MG FOR TOTAL OF 98MG DAILY atomoxetine 80 mg capsule 80 mg PO DAILY Patient Comments: TAKE ONE CAPSULE BY MOUTH EVERY DAY WITH 18MG TO MAKE A TOTAL OF 98MG DAILY Discharge Instructions Instructions: Suicide prevention Additional Instructions: You were seen in the emergency department today for evaluation of suicidal thoughts and feelings. You had a full physical examination performed and met with a member of our crisis team, and completed a safety plan so that you can go home and continue to utilize your outpatient resources. Please take all of your medication as prescribed, and keep your follow-up appointments. Thank you for allowing us to be part of your care. Discharge Data Discharge Date/Time-TO BE ENTERED AT DEPARTURE: 01/16/25 11:53
[2025-01-16 07:44] LABS: COVID-19 PCR Negative (Negative); Influenza A PCR Negative (Negative); Influenza B PCR Negative (Negative); RSV PCR Negative (Negative)
[2025-01-16 07:45] LABS: Source Nasopharynx
--- NOTE | 2025-01-16 08:28 | PDOC.CMSAFE ---
Date of service: 01/16/25 Time of Service: 08:28 Care Management Safety Plan Status Status: Voluntary Reason for Wait Reason for Wait: Inpatient Admission Safety Plan Safety Plan: VOLUNTARY FOR INPATIENT PSYCHIATRIC STABILIZATION.? Patient is appropriate in all interactions since arriving at [facility]; Pt has demonstrated appropriate coping and communication skills, has articulated her needs and concerns and is fully engaged during staff interactions. Safety plan has been established with patient, and care team, to adhere to patient goals, identify restrictions based on behavioral status, address nutrition, and determine allowed personal belongings, tools for hygiene and personal care. Determine level of activity including ambulation, level of supervision, visitors, and determine privileges based on behaviors and level of engagement by pt. VOLUNTARY SAFETY PLAN: 1. Will remain on suicide precautions, in paper clothes 2. Will remain in Zone B under direct supervision of one-on-one staff at all times provided by [employer]; MARLEE, [employer] director of category management. 3. May have paper cups, plates, finger foods as well as a cardboard spoon with which to eat meals. 4. Follow [facility] Management of the Admitted Behavioral Health Patient policy. 5. Shower available in Zone B without restriction. 6. Personal belongings-soft items permitted at RN discretion. 7. Visitors-none at this time. 8. Activities: soft cart items approved per RN discretion. 9.? Bathroom available in Zone B without restriction. 10. Phone: limited to [facility] cordless phone at RN discretion. Due to VOLUNTARY status, if patient wishes to leave [facility], staff will contact [facility] Crisis Screener ([phone]) and Practice Manager ([phone]) as soon as possible. In the event of elopement, notify [facility] Police ([phone]).
[2025-01-16] MEDS: LORazepam 0.5 MG TAB PO (11:05)
[2025-01-16 11:51] VITALS: BP 132/82; PULSE 88; RESP 20; TEMP 36.6; O2SAT 93
--- NOTE | 2025-01-16 12:36 | MHPN_ITS ---
Date of service: 01/16/25 Time of Service: 11:00 Mental Health Emergency Note Release [facility] release signed:: Yes Reason for Visit The client is known to [facility] and currently receives services through the adult outpatient program. Per chart review the client has cancelled appointments with therapist Dalila Griffith. Per the clients report she has been hospitalized voluntarily at [place] about 3 months ago. Earlier this morning the client outreaches to [facility] dispatch and requests to speak to mental health. This freelance copywriter makes contact with the client via phone where the client reports that she is endorsing SI. This freelance copywriter offers a mobile crisis response, however she declines stating that she needs to go to the hospital. The client called 911 and requested transport. The client presents to [facility] via [email or web address] for SI with intent and plan earlier this morning, however now is requesting to leave. This freelance copywriter meets with the client via telehealth for re-assessment. In the last 2 weeks has the pt presented for ES prior to today?: Yes, presented at [facility] The client is a 49 year old female who lives with her in [facility] in a apartment. The client identifies as female and uses she/her pronouns. This client presented to this clinician in the ER on oxygen as her levels were low. All screening tools during initial assessment earlier this morning are completed and all under represented categories are honored. The client reports to staff at [facility] this morning that she is feeling better and wants to go home. This freelance copywriter meets with the client via telehealth. The client is sitting in her hospital bed dressed in proper paper hospital attire. The client reports that since she was able to get some rest at the hospital she is feeling better and wants to go home. The client is currently denying suicidal ideations as well as intent and plan. This freelance copywriter asks the client what has changed since a few hours earlier and she reports that sleep and rest. This freelance copywriter and the client discuss the importance of utilizing coping skills as well as outpatient supports upon discharge back to the community. The client reports understanding of this. Resources Reosurces reviewed and given:: [facility] Plan/Disposition Recommended Disposition: [facility] Services [facility] Services: Therapy. Plan: The client will be discharged on a pro-active safety plan. The client will utilize her coping skills as well as 988 if needed. The client will attend in- person follow-up appointment with MARCO on 01/19. The client will also attend therapy appointment with Dalila Griffith on 01/21. Person reported agreement to plan: Yes Reports/communication Outcome discussed with: ED/Personnel (Verbal given to ED provider Dr. Mallory)
== END 2025-01-16 11:53 | disposition home or self-care (01) ==
PROVIDERS: Emergency Medicine Emergency Medical Services; Emergency Provider Emergency Medicine; PCP Nurse Practitioner Family
DX: R45.851 Suicidal ideations (principal); F32.A Depression, unspecified; F25.9 Schizoaffective disorder, unspecified; I10 Essential (primary) hypertension; E78.5 Hyperlipidemia, unspecified; J44.9 Chronic obstructive pulmonary disease, unspecified; F17.210 Nicotine dependence, cigarettes, uncomplicated; Z99.81 Dependence on supplemental oxygen; Z79.899 Other long term (current) drug therapy
CPT/HCPCS: 00123; 80053; 80307; 87637; 96127; 99285; 81003; 81015; 85025

== ENCOUNTER 2025-01-27 02:08 | Emergency (ER) | payer MEDICARE, MEDICAID, SELFPAY ==
[2025-01-27] VITALS (97 sets, daily range): BP systolic 153–196; BP diastolic 64–91; PULSE 78–116; RESP 24–25; TEMP 36.6; O2SAT 84–99
--- NOTE | 2025-01-27 01:43 | ED.GENADUL_ITS ---
Discharge Plan Disposition Condition: Stable Discharge Details Chief Complaint: RespSymp Clinical Impression: Dyspnea Primary Care Provider: BRYCE SMITH ED Provider: Ronaldo Cole Meds and New Rx's Prescriptions: No Action (DME) Oxygen Tank See Rx Instructions .Route Qty: 1 0RF Rx Instructions: 2LPM with exertion pregabalin [Lyrica] 50 mg capsule 50 mg PO BID Patient Comments: prescribed by Bryce Smith, JAMES ipratropium-albuterol 0.5 mg-3 mg(2.5 mg base)/3 mL solution for nebulization 3 ml UPD Q4H PRN PRN (Reason: shortness of breath or wheezing) Qty: 540 12RF Jardiance 25 mg tablet 25 mg PO DAILY Dulera 200-5 mcg/actuation HFA aerosol inhaler 2 puff inhalation BID Qty: 13 12RF Rx Instructions: Rinse mouth after use Spiriva Respimat 2.5 mcg/actuation mist 2 puff inhalation DAILY Qty: 4 12RF buspirone 30 mg tablet 60 mg PO BID Patient Comments: reports she is taking 60mg BID cyclobenzaprine 10 mg tablet 10 mg PO BID PRN PRN (Reason: muscle spasm) lisinopril 20 mg Tablet 20 mg PO DAILY divalproex [Depakote] 500 mg Tablet,Delayed Release (Dr/Ec) 1,000 mg PO HS risperidone [Risperdal] 2 mg Tablet 6 mg PO HS spironolactone 25 mg Tablet 25 mg PO DAILY Qty: 30 0RF atomoxetine 40 mg capsule 98 mg PO DAILY Patient Comments: TAKE two CAPSULE BY MOUTH EVERY MORNING melatonin 10 mg capsule 10 mg PO HS PRN PRN prazosin 5 mg capsule 10 mg PO QHS Patient Comments: TAKE TWO CAPSULES BY MOUTH EVERY EVENING AT BEDTIME ibuprofen 800 mg tablet 800 mg PO BID PRN PRN Patient Comments: TAKE ONE TABLET BY MOUTH TWICE A DAY NEEDED furosemide [Lasix] 20 mg tablet 20 mg PO DAILY Qty: 14 0RF albuterol sulfate 2.5 mg /3 mL (0.083 %) solution for nebulization 2.5 mg inhalation Q4H PRN PRN albuterol sulfate 90 mcg/actuation HFA aerosol inhaler 2 puff inhalation Q6H PRN PRN (Reason: shortness of breath or wheezing) lorazepam 0.5 mg tablet 0.5 mg PO DAILY PRN Patient Comments: TAKE ONE TABLET BY MOUTH EVERY DAY NEEDED FOR SEVERE ANXIETY sertraline 100 mg tablet 150 mg PO DAILY Patient Comments: TAKE ONE AND ONE-HALF TABLETS BY MOUTH EVERY DAY atomoxetine 18 mg capsule 18 mg PO DAILY Patient Comments: TAKE ONE CAPSULE BY MOUTH EVERY MORNING, TAKE WITH 80MG FOR TOTAL OF 98MG DAILY atomoxetine 80 mg capsule 80 mg PO DAILY Patient Comments: TAKE ONE CAPSULE BY MOUTH EVERY DAY WITH 18MG TO MAKE A TOTAL OF 98MG DAILY HPI General Mode of arrival: EMS . Date/Time Provider Initiated Documentation: 01/27/25 02:34 . Limitations to Documentation: no limitations . Information obtained by: patient, RN notes reviewed and old records reviewed . HPI Narrative: Patient presents to ED with complaint of shortness of breath and wheezing. Patient with history of asthma/COPD with previous admissions, last 1 being in the beginning of December. She has had some congestion and sore throat the last couple of days but no fever. Cough and wheezing worse since the morning of the fifth. No associated chest pain or pressure. Has been using her inhalers and nebs at home. Has oxygen to use at home at night. Denies any abdominal pain or vomiting. No current psychiatric complaints. Related Data Home Medications ?Medication ?Instructions ?Recorded ?Confirmed divalproex 500 mg tablet,delayed 1,000 mg PO HS 01/18/20 01/27/25 release (Depakote) lisinopril 20 mg tablet 20 mg PO DAILY 01/18/20 01/27/25 risperidone 2 mg tablet (Risperdal) 6 mg PO HS 01/18/20 01/27/25 ibuprofen 800 mg tablet 800 mg PO BID PRN PRN 11/20/22 01/27/25 Oxygen #1 ea 12/13/22 01/27/25 spironolactone 25 mg tablet 25 mg PO DAILY #30 tabs 05/06/23 01/27/25 furosemide 20 mg tablet (Lasix) 20 mg PO DAILY #14 tabs 06/13/23 01/27/25 empagliflozin 25 mg tablet 25 mg PO DAILY 12/15/23 01/27/25 (Jardiance) buspirone 30 mg tablet 60 mg PO BID 02/09/24 01/27/25 cyclobenzaprine 10 mg tablet 10 mg PO BID PRN PRN muscle spasm 02/09/24 01/27/25 pregabalin 50 mg capsule (Lyrica) 50 mg PO BID 06/21/24 01/27/25 mometasone-formoterol HFA 200 2 puff inhalation BID #13 grams 08/04/24 01/27/25 mcg-5 mcg/actuation aerosol inhaler (Dulera) tiotropium bromide 2.5 2 puff inhalation DAILY #4 grams 08/04/24 01/27/25 mcg/actuation mist for inhalation (Spiriva Respimat) atomoxetine 40 mg capsule 98 mg PO DAILY 08/19/24 01/27/25 melatonin 10 mg capsule 10 mg PO HS PRN PRN 08/19/24 01/27/25 prazosin 5 mg capsule 10 mg PO QHS 08/20/24 01/27/25 ipratropium 0.5 mg-albuterol 3 mg 3 ml UPD Q4H PRN PRN shortness of 12/15/24 01/27/25 (2.5 mg base)/3 mL nebulization breath or wheezing #540 mL soln albuterol sulfate 2.5 mg/3 mL 2.5 mg inhalation Q4H PRN PRN 12/27/24 01/27/25 (0.083 %) solution for nebulization albuterol sulfate 90 mcg/actuation 2 puff inhalation Q6H PRN PRN 12/27/24 01/27/25 aerosol inhaler shortness of breath or wheezing atomoxetine 18 mg capsule 18 mg PO DAILY 01/16/25 01/27/25 atomoxetine 80 mg capsule 80 mg PO DAILY 01/16/25 01/27/25 lorazepam 0.5 mg tablet 0.5 mg PO DAILY PRN 01/16/25 01/27/25 sertraline 100 mg tablet 150 mg PO DAILY 01/16/25 01/27/25 Previous Rx's ?Medication ?Instructions ?Recorded Oxygen #1 ea 12/13/22 spironolactone 25 mg tablet 25 mg PO DAILY #30 tabs 05/06/23 furosemide 20 mg tablet (Lasix) 20 mg PO DAILY #14 tabs 06/13/23 mometasone-formoterol HFA 200 2 puff inhalation BID #13 grams 08/04/24 mcg-5 mcg/actuation aerosol inhaler (Dulera) tiotropium bromide 2.5 2 puff inhalation DAILY #4 grams 08/04/24 mcg/actuation mist for inhalation (Spiriva Respimat) ipratropium 0.5 mg-albuterol 3 mg 3 ml UPD Q4H PRN PRN shortness of 12/15/24 (2.5 mg base)/3 mL nebulization breath or wheezing #540 mL soln Allergies Allergy/AdvReac Type Severity Reaction Status Date / Time bee pollen Allergy Hives Verified 01/27/25 01:36 hazelnut Allergy Hives Verified 01/27/25 01:36 peanut Allergy hallucinati Verified 01/27/25 01:36 on tree nut Allergy hallucinati Verified 01/27/25 01:36 on gabapentin AdvReac Severe vomiting Verified 01/27/25 01:36 varenicline (From Chantix) AdvReac Intermediate depression Verified 01/27/25 01:36 amoxicillin AdvReac Nausea Verified 01/27/25 01:36 fluoxetine (From Prozac) AdvReac Nausea Verified 01/27/25 01:36 trazodone AdvReac Weight gain Verified 01/27/25 01:36 abelox Allergy Hives Uncoded 01/27/25 01:36 General ZACK: 2 Exam Narrative Exam Narrative: Const: Obese female in NAD. VS per triage. HEENT: NC/AT. Normal facial exam. Neck: Supple. Trachea midline. Lungs: Mildly tachypneic with slight increased work of breathing, diffuse wheezing throughout but decent air exchange. Cor: RRR without murmur. Good radial pulses. GI: Soft/ND Neuro: A+O x 3. Normal speech, mentation, gait. Cranial nerves II - XII grossly intact. No gross motor or sensory deficit. Ext: No C/C/E. Medical Decision Making Patient presenting to ED with increased cough and wheezing, shortness of breath over the course of the last 24 hours. Has history of asthma/COPD and is on oxyg en at home mostly at night with inhalers and nebulizers. Some mild URI type symptoms a day or 2 prior. No fever or chest pain. Received a DuoNeb by EMS. Saturating in the low to mid 90s on 3 L nasal cannula which is her baseline at night. Will obtain a chest x-ray. Will dose with prednisone as well as an albuterol neb. Will hold off on labs at this time pending reevaluation and imaging. 03:10 - Patient reporting no real change. Saturations on NC oxygen now 88 - 90%. CXR per my read and preliminary radiology read with some increased interstitial markings mostly in the lower lobes. Upper lobes are clear. No obvious consolidation. Given lack of improvement with borderline saturations while on oxygen and chest x-ray with evidence of possible edema will place IV and obtain labs, EKG, nasal swab. 05:40 - Patient's WBC and hemoglobin are normal. Venous blood gas is baseline with a pCO2 of 57, normal pH at 7.36. Chemistries unremarkable except for chronically elevated bicarb and somewhat elevated glucose. Initial troponin 57, repeat 55 and in November was in the 60s. BNP is elevated 8137. She has had elevated BNP's in the past but not this high. An echo done in June 2024 showed essentially normal EF, some enlargement of her right chambers and some mild valvular disease only. Her nasal swab is negative. She has been maintaining saturations at about 92% on 1-1/2 L. She is on furosemide 20 mg a day. Given the elevated BNP any evidence of some mild pulmonary edema on chest x-ray will give dose of IV Lasix and reassess. Medical Records Medical records reviewed: Yes I reviewed the patient's medical records. Medical records narrative: last month's admission for CAP, COPD exacerbation Imaging Data Radiologic Study: Attestation: I personally reviewed and interpreted this imaging study as follows: Imaging: X-Ray My impression: see MDM Quality:SDOH Health Related Social Needs: Health related social needs feeling lonely/isolated (Z 60.8) PFSH All Active Problems (Updated 01/27/25 @ 07:30 by Ronaldo Cole MD) Dyspnea (Acute) Spinal stenosis (Acute) Migraine (Chronic) Nicotine dependence, cigarettes, uncomplicated (Acute) Vitamin D deficiency (Acute) Tobacco abuse (Chronic) Medical History COPD (chronic obstructive pulmonary disease) Auditory hallucinations Left ventricular hypertrophy Obesity hypoventilation syndrome Schizoaffective disorder Post traumatic stress disorder Hyperlipidemia Asthma H/O suicide attempt ADHD Anxiety Bipolar disorder Non-insulin dependent diabetes mellitus Obesity (BMI 30.0-34.9) Hypertension Surgical History Status post bilateral salpingectomy S/P cholecystectomy Family History Other Adopted Social History Smoking/Tobacco Use Status: Current every day Tobacco Type: cigarettes Smoking packs per day: 0.25 Smoking cigarettes per day: 5.0 Years smoked: 40 Smoking pack-years: 10.00 Tobacco: How many years used: 40 Smoking risk assessment performed?: Yes Alcohol Intake: never Drug use: Occasionally Substance use type: marijuana Details: smokes marijuana about once per month 01/11/24 Housing: apartment Do you feel safe at home: Yes Do you feel safe in your relationship?: Yes Additional Social history: Lives with on [address] in [facility]. She is disabled with her medical and mental health conditions. 22 year old daughter in [place].
[2025-01-27] MEDS: predniSONE 20 MG TAB 60 MG PO (02:03)
[2025-01-27] MEDS: Albuterol 2.5 MG/3 ML INH SOLN VIAL 5 MG UPD (02:03)
--- NOTE | 2025-01-27 02:55 | DI.RAD_ITS ---
Exam(s) XR CHEST 2V PA LATERAL EXAM: XR CHEST 2V PA LATERAL CLINICAL HISTORY: SOB. TECHNIQUE: 2D digital imaging was performed. COMPARISON: CR,XR XR CHEST 2V PA LATERAL from 12/30/2024 FINDINGS: 2 views: Heart size is upper normal. The mediastinum is not widened. Left 6 rib deformity again noted related to prior healed fracture site. There has been clearing the previously described right lung infiltrates. However, there is platelike atelectasis in the lateral right lung base costophrenic angle noted on the present study. Also slig htly increased interstitial markings in both lung wilkins. No obvious pleural effusions. IMPRESSION: Clearing of the previously present confluent infiltrates in the right lung which were evident on ches t x-ray 12/30/2024. Platelike atelectasis in the lateral right lung base versus fluid within interlobular septae. DATA REPOSITORY: RADIATION DOSE DELIVERED:
--- NOTE | 2025-01-27 03:00 | RT.EKG_ITS ---
APPROVED REPORT Exam: Resting ECG Reason for Exam: SOB Patient Location: E HR:100 bpm ECG Measurements Heart Rate 100 AXIS [place] 140 P 66 QRSd 78 QRS 95 QT 358 T 37 QTc 462 Conclusion Sinus tachycardia...rate> 99 Normal Sutton/Interval No acute ST changes There are no significant changes compared to prior EKG performed on 11/29/2024 at 22:18.
--- NOTE | 2025-01-27 03:01 | DI.VRAD_ITS ---
PROCEDURE INFORMATION: Exam: XR Chest Exam date and time: 01/27/2025 2:49 AM Age: 49 years old Clinical indication: Shortness of breath; SOB TECHNIQUE: Imaging protocol: Radiologic exam of the chest. Views: 2 views. COMPARISON: CR XR CHEST 2V PA LATERAL 12/30/2024 8:10 PM FINDINGS: Lungs: There is hazy indistinctness of the pulmonary vascular margins suggesting mild interstitial pulmonary edema. Clinical correlation is recommended. No region of ilda pulmonary consolidation is seen. Pleural spaces: No pleural effusion or pneumothorax is demonstrated. Heart/Mediastinum: The heart appears normal in size. Bones/joints: There is deformity along the posterolateral aspect of the left 6th rib with an appearance suggesting old trauma. IMPRESSION: Mild hazy indistinctness of the pulmonary vascular markings suspicious for interstitial pulmonary edema. Dictated and Authenticated by: Harinder Bhandari MD. Orderin Douglas Higgins MD
[2025-01-27 03:38] LABS: Abs Immature Grans 0.06 10^3/uL (0.0-0.06); Absolute Basophil Count 0.04 10^3/uL (0.0-0.2); Absolute Eosinophil Count 0.15 10^3/uL (0.0-0.7); Absolute Lymphocyte Count 2.75 10^3/uL (1.2-3.4); Absolute Monocyte Count 0.48 10^3/uL (0.1-0.8); Absolute Neutrophil Count 4.12 10^3/uL (1.2-6.7); Basophils % 0.5 %; HCT 42.7 % (36.0-46.0); HGB 13.4 g/dL (11.2-15.7); Immature Grans % 0.8 %; Lymphocytes % 36.2 %; MCH 28.3 pg (27.0-33.0); MCHC 31.4 % (32.0-36.0); MCV 90 fL (80-95); MPV 8.5 fL (8.0-11.0); Monocytes % 6.3 %; Neutrophils % 54.2 %; Platelet Count 156 10^3/uL (130-400); RBC 4.73 10^6/uL (3.93-5.22); RDW 17.3 % (11.7-14.6); RDW-SD 57.8 fL
[2025-01-27 04:00] LABS: Anion Gap 3.6 mmol/L (3-11); BUN 18 mg/dL (7-18); CO2 33.4 mmol/L (21.0-32.0); Calcium 8.7 mg/dL (8.5-10.1); Chloride 103 mmol/L (98-107); Estimated GFR 68.63 (mL/min/1.73m2); Glucose 222 mg/dL (74-106); NT-proBNP 8137 pg/mL (<300); Sodium 140 mmol/L (136-145)
[2025-01-27 04:04] LABS: Troponin I 57 ng/L (<or=51)
[2025-01-27 04:14] LABS: COVID-19 PCR Negative (Negative); Influenza A PCR Negative (Negative); Influenza B PCR Negative (Negative); RSV PCR Negative (Negative)
[2025-01-27 04:18] LABS: Source Nasopharynx
[2025-01-27 04:35] LABS: BE (Venous) 6 mmol/L (-2-3); HCO3 (Venous) 32 mmol/L (23-28); O2 Sat (Venous) 94 %; TCO2 (Venous) 29 mmol/L (24-29); pCO2 (Venous) 57 mmHg (41-51); pH (Venous) 7.36 (7.31-7.41); pO2 (Venous) 69 mmHg
[2025-01-27 05:20] LABS: Lab Add On Test DONE
[2025-01-27 05:37] LABS: Troponin I 55 ng/L (<or=51)
[2025-01-27] MEDS: Furosemide 40 MG/4 ML VIAL IVP (05:47)
--- NOTE | 2025-01-27 08:58 | ED.PROG_ITS ---
Date of service: 01/27/25 Time of Service: 09:01 Medical Decision Making Patient was signed out to me pending reassessment. Patient is feeling much better after single dose of Lasix and breathing treatments. Hemodynamically patient is stable, no hypoxemia compared to baseline. Vital signs stabilized. No tachypnea or tachycardia. Patient feels well and much improved and would like to go home. Will recommend avoidance of salty foods, continued Lasix use, and continued inhaler use. Will give short prescription for steroids. Discussed red flags for which to return. I have extensively reviewed the treatment plan and discharge instructions with the patient. I have addressed all patient concerns at this time. The patient was made aware of what symptoms to monitor for that would warrant a return to the emergency department. Discussed the plan with the patient, they demonstrate verbal understanding and agreement with our assessment and plan at this time. The documentation in this chart was dictated using [employer] dictation software. Please excuse any dictation errors. Quality:SDOH Health Related Social Needs: Health related social needs feeling lonely/isolated (Z 60.8) Discharge Plan Disposition Patient Disposition: Home Condition: Good Discharge Details Clinical Impression: Dyspnea, COPD exacerbation Primary Care Provider: BRYCE SMITH ED Provider: Matty Palacio Home Meds and New Rx's Prescriptions: New prednisone 50 mg tablet 50 mg PO DAILY Qty: 5 0RF No Action (DME) Oxygen Tank See Rx Instructions .Route Qty: 1 0RF Rx Instructions: 2LPM with exertion pregabalin [Lyrica] 50 mg capsule 50 mg PO BID Patient Comments: prescribed by Bryce Smith, PCP ipratropium-albuterol 0.5 mg-3 mg(2.5 mg base)/3 mL solution for nebulization 3 ml UPD Q4H PRN PRN (Reason: shortness of breath or wheezing) Qty: 540 12RF Jardiance 25 mg tablet 25 mg PO DAILY Dulera 200-5 mcg/actuation HFA aerosol inhaler 2 puff inhalation BID Qty: 13 12RF Rx Instructions: Rinse mouth after use Spiriva Respimat 2.5 mcg/actuation mist 2 puff inhalation DAILY Qty: 4 12RF buspirone 30 mg tablet 60 mg PO BID Patient Comments: reports she is taking 60mg BID cyclobenzaprine 10 mg tablet 10 mg PO BID PRN PRN (Reason: muscle spasm) lisinopril 20 mg Tablet 20 mg PO DAILY divalproex [Depakote] 500 mg Tablet,Delayed Release (Dr/Ec) 1,000 mg PO HS risperidone [Risperdal] 2 mg Tablet 6 mg PO HS spironolactone 25 mg Tablet 25 mg PO DAILY Qty: 30 0RF atomoxetine 40 mg capsule 98 mg PO DAILY Patient Comments: TAKE two CAPSULE BY MOUTH EVERY MORNING melatonin 10 mg capsule 10 mg PO HS PRN PRN prazosin 5 mg capsule 10 mg PO QHS Patient Comments: TAKE TWO CAPSULES BY MOUTH EVERY EVENING AT BEDTIME ibuprofen 800 mg tablet 800 mg PO BID PRN PRN Patient Comments: TAKE ONE TABLET BY MOUTH TWICE A DAY NEEDED furosemide [Lasix] 20 mg tablet 20 mg PO DAILY Qty: 14 0RF albuterol sulfate 2.5 mg /3 mL (0.083 %) solution for nebulization 2.5 mg inhalation Q4H PRN PRN albuterol sulfate 90 mcg/actuation HFA aerosol inhaler 2 puff inhalation Q6H PRN PRN (Reason: shortness of breath or wheezing) lorazepam 0.5 mg tablet 0.5 mg PO DAILY PRN Patient Comments: TAKE ONE TABLET BY MOUTH EVERY DAY NEEDED FOR SEVERE ANXIETY sertraline 100 mg tablet 150 mg PO DAILY Patient Comments: TAKE ONE AND ONE-HALF TABLETS BY MOUTH EVERY DAY atomoxetine 18 mg capsule 18 mg PO DAILY Patient Comments: TAKE ONE CAPSULE BY MOUTH EVERY MORNING, TAKE WITH 80MG FOR TOTAL OF 98MG DAILY atomoxetine 80 mg capsule 80 mg PO DAILY Patient Comments: TAKE ONE CAPSULE BY MOUTH EVERY DAY WITH 18MG TO MAKE A TOTAL OF 98MG DAILY Discharge Instructions Instructions: Exacerbation of COPD Additional Instructions: At this time you show evidence of a mild COPD exacerbation. Please take the steroid as directed. Please continue to take your inhaler as prescribed. Please stop smoking. If you notice any worsening of your symptoms, or any new symptoms such as vomiting, diarrhea, fever, chills, shortness of breath, chest pain, numbness, weakness, or fainting , please return immediately to the emergency department for reevaluation. Please follow up with your primary care provider as soon as possible for reassessment and reevaluation. As always, it was a pleasure participating in your medical care today. Referrals: BRYCE SMITH [facility]RIL[facility] LAB TECHNICIAN [Primary Care Provider] -
== END 2025-01-27 09:31 | disposition home or self-care (01) ==
PROVIDERS: Emergency Medicine; Emergency Provider Student in an Organized Health Care Education/Training Program; PCP Nurse Practitioner Family
DX: J44.1 Chronic obstructive pulmonary disease with (acute) exacerbation (principal); R06.00 Dyspnea, unspecified; F17.210 Nicotine dependence, cigarettes, uncomplicated; Z60.8 Other problems related to social environment
CPT/HCPCS: 00123; 36415; 80048; 82805; 87637; 93005; 94640; 96374; 99284; 71046; 83880; 84484; 85025; 93010; J1940; J7512; J7613

== ENCOUNTER 2025-03-01 22:31 | Emergency (ER) | payer MEDICARE, MEDICAID, SELFPAY ==
[2025-03-01 22:27] VITALS: BP 167/86; PULSE 111; RESP 22; TEMP 36.4; O2SAT 94
--- NOTE | 2025-03-01 22:30 | DI.CT_ITS ---
Exam(s) CT ABDOMEN PELVIS W EXAM: CT ABDOMEN PELVIS W CLINICAL HISTORY: lower abdominal pain TECHNIQUE: Imaging Protocol: Axial computed tomography images with coronal and sagittal reformatted images were created and reviewed. CONTRAST MATERIAL: Intravenous: Omnipaque 350 Contrast volume:85 mL Oral: No COMPARISON: CT CT CHEST PE CTA from 11/05/[address] ABDOMEN PELVIS W from 11/03/[address] ABDOMEN PELVIS CTA from 11/04/2024 FINDINGS: ABDOMEN: Lung Bases: Coronary artery calcifications are present. Liver: Normal density. No measurable mass. Portal, Superior Mesenteric, and Splenic Veins: Unremarkable. Gallbladder and Biliary Tract: Status post cholecystectomy. No significant biliary ductal dilatation is present. Pancreas: Normal density, no abnormal calcifications or inflammatory process. There is a stable hypod ensity in the head of the pancreas. No suspicious pancreatic masses are seen. Spleen: Normal. Adrenals: No masses seen. Kidneys: Normal size, contour and axis. No radiodense stones or obstructive uropathy. No masses seen. Abdominal Aorta: Abdominal portion non-dilated. Atherosclerotic calcification is present. Bowel: No obstruction or bowel wall thickening. There is a duodenal diverticulum present. There is n o evidence of appendicitis. Peritoneal Cavity: No ascites, collection or mesenteric inflammatory response. No free air. Lymph Nodes: There are nonspecific mildly enlarged iliac and inguinal lymph nodes. The largest is se en adjacent to the left external iliac vessels and measures 2.4 x 1.5 cm. Bones: Within normal limits for the patient's age. Soft Tissues: Unremarkable. PELVIS: Bladder: Symmetric distention, no gross wall thickening. Reproductive Organs: Unremarkable as visualized. Lymph Nodes: Within normal limits. Bones: Within normal limits for the patient's age. IMPRESSION: 1. No acute abdominal or pelvic process. 2. Stable hypodensity in the head of the pancreas. A nonemergent MRI of the pancreas is recommended for further characterization. 3. Nonspecific mildly enlarged iliac and inguinal lymph nodes. Unexpected findings RADIATION DOSE DELIVERED: 696.46mGy.cm Total DLP DATA REPOSITORY: All CT scans at this facility are submitted to the National Radiology Data Registry (NRDR) Dose Index Registry (DIR) with the [employer] ([employer]). RADIATION OPTIMIZATION: All CT scans at this facility use at least one of these dose optimization te chniques: automated exposure control; mA and/or kV adjustment per patient size (includes targeted exa ms where dose is matched to clinical indication); or iterative reconstruction.
[2025-03-01 22:32] VITALS: PULSE 108; RESP 22; TEMP 36.5; O2SAT 94
--- NOTE | 2025-03-01 22:41 | W.ED.GENAD ---
Discharge Plan Discharge Details Chief Complaint: Abd Prob Clinical Impression: Abdominal pain Primary Care Provider: BRYCE SMITH ED Provider: Uriah Blue Home Meds and New Rx's Prescriptions: No Action (DME) Oxygen Tank See Rx Instructions .Route Qty: 1 0RF Rx Instructions: 2LPM with exertion pregabalin [Lyrica] 50 mg capsule 50 mg PO BID Patient Comments: prescribed by Bryce Smith, PCP ipratropium-albuterol 0.5 mg-3 mg(2.5 mg base)/3 mL solution for nebulization 3 ml UPD Q4H PRN PRN (Reason: shortness of breath or wheezing) Qty: 540 12RF Jardiance 25 mg tablet 25 mg PO DAILY Dulera 200-5 mcg/actuation HFA aerosol inhaler 2 puff inhalation BID Qty: 13 12RF Rx Instructions: Rinse mouth after use Spiriva Respimat 2.5 mcg/actuation mist 2 puff inhalation DAILY Qty: 4 12RF buspirone 30 mg tablet 60 mg PO BID Patient Comments: reports she is taking 60mg BID cyclobenzaprine 10 mg tablet 10 mg PO BID PRN PRN (Reason: muscle spasm) lisinopril 20 mg Tablet 20 mg PO DAILY divalproex [Depakote] 500 mg Tablet,Delayed Release (Dr/Ec) 1,000 mg PO HS risperidone [Risperdal] 2 mg Tablet 6 mg PO HS spironolactone 25 mg Tablet 25 mg PO DAILY Qty: 30 0RF atomoxetine 40 mg capsule 98 mg PO DAILY Patient Comments: TAKE two CAPSULE BY MOUTH EVERY MORNING melatonin 10 mg capsule 10 mg PO HS PRN PRN prazosin 5 mg capsule 10 mg PO QHS Patient Comments: TAKE TWO CAPSULES BY MOUTH EVERY EVENING AT BEDTIME ibuprofen 800 mg tablet 800 mg PO BID PRN PRN Patient Comments: TAKE ONE TABLET BY MOUTH TWICE A DAY NEEDED furosemide [Lasix] 20 mg tablet 20 mg PO DAILY Qty: 14 0RF albuterol sulfate 2.5 mg /3 mL (0.083 %) solution for nebulization 2.5 mg inhalation Q4H PRN PRN albuterol sulfate 90 mcg/actuation HFA aerosol inhaler 2 puff inhalation Q6H PRN PRN (Reason: shortness of breath or wheezing) lorazepam 0.5 mg tablet 0.5 mg PO DAILY PRN Patient Comments: TAKE ONE TABLET BY MOUTH EVERY DAY NEEDED FOR SEVERE ANXIETY sertraline 100 mg tablet 150 mg PO DAILY Patient Comments: TAKE ONE AND ONE-HALF TABLETS BY MOUTH EVERY DAY atomoxetine 18 mg capsule 18 mg PO DAILY Patient Comments: TAKE ONE CAPSULE BY MOUTH EVERY MORNING, TAKE WITH 80MG FOR TOTAL OF 98MG DAILY atomoxetine 80 mg capsule 80 mg PO DAILY Patient Comments: TAKE ONE CAPSULE BY MOUTH EVERY DAY WITH 18MG TO MAKE A TOTAL OF 98MG DAILY prednisone 50 mg tablet 50 mg PO DAILY Qty: 5 0RF HPI General Mode of arrival: EMS. Date/Time Provider Initiated Documentation: 03/01/25 22:32. Limitations to Documentation: no limitations. Information obtained by: patient. History of Present Illness 49 year old F presents to the emergency department with the chief complaint of lower abdominal pain, described as moderate, Quality is described as stabbing, and is localized to the abdomen. Patient reports no radiation. Patient started experiencing this hour(s) (12) and it has been constant. No relieving factors improve symptom(s), No exacerbating factors reported . Patient notes denies chest pain, fever/chills and shortness of breath. Related Data Home Medications ?Medication ?Instructions ?Recorded ?Confirmed divalproex 500 mg tablet,delayed 1,000 mg PO HS 01/18/20 01/27/25 release (Depakote) lisinopril 20 mg tablet 20 mg PO DAILY 01/18/20 01/27/25 risperidone 2 mg tablet (Risperdal) 6 mg PO HS 01/18/20 01/27/25 ibuprofen 800 mg tablet 800 mg PO BID PRN PRN 11/20/22 01/27/25 Oxygen #1 ea 12/13/22 01/27/25 spironolactone 25 mg tablet 25 mg PO DAILY #30 tabs 05/06/23 01/27/25 furosemide 20 mg tablet (Lasix) 20 mg PO DAILY #14 tabs 06/13/23 01/27/25 empagliflozin 25 mg tablet 25 mg PO DAILY 12/15/23 01/27/25 (Jardiance) buspirone 30 mg tablet 60 mg PO BID 02/09/24 01/27/25 cyclobenzaprine 10 mg tablet 10 mg PO BID PRN PRN muscle spasm 02/09/24 01/27/25 pregabalin 50 mg capsule (Lyrica) 50 mg PO BID 06/21/24 01/27/25 mometasone-formoterol HFA 200 2 puff inhalation BID #13 grams 08/04/24 01/27/25 mcg-5 mcg/actuation aerosol inhaler (Dulera) tiotropium bromide 2.5 2 puff inhalation DAILY #4 grams 08/04/24 01/27/25 mcg/actuation mist for inhalation (Spiriva Respimat) atomoxetine 40 mg capsule 98 mg PO DAILY 08/19/24 01/27/25 melatonin 10 mg capsule 10 mg PO HS PRN PRN 08/19/24 01/27/25 prazosin 5 mg capsule 10 mg PO QHS 08/20/24 01/27/25 ipratropium 0.5 mg-albuterol 3 mg 3 ml UPD Q4H PRN PRN shortness of 12/15/24 01/27/25 (2.5 mg base)/3 mL nebulization breath or wheezing #540 mL soln albuterol sulfate 2.5 mg/3 mL 2.5 mg inhalation Q4H PRN PRN 12/27/24 01/27/25 (0.083 %) solution for nebulization albuterol sulfate 90 mcg/actuation 2 puff inhalation Q6H PRN PRN 12/27/24 01/27/25 aerosol inhaler shortness of breath or wheezing atomoxetine 18 mg capsule 18 mg PO DAILY 01/16/25 01/27/25 atomoxetine 80 mg capsule 80 mg PO DAILY 01/16/25 01/27/25 lorazepam 0.5 mg tablet 0.5 mg PO DAILY PRN 01/16/25 01/27/25 sertraline 100 mg tablet 150 mg PO DAILY 01/16/25 01/27/25 prednisone 50 mg tablet 50 mg PO DAILY #5 tabs 01/27/25 Previous Rx's ?Medication ?Instructions ?Recorded Oxygen #1 ea 12/13/22 spironolactone 25 mg tablet 25 mg PO DAILY #30 tabs 05/06/23 furosemide 20 mg tablet (Lasix) 20 mg PO DAILY #14 tabs 06/13/23 mometasone-formoterol HFA 200 2 puff inhalation BID #13 grams 08/04/24 mcg-5 mcg/actuation aerosol inhaler (Dulera) tiotropium bromide 2.5 2 puff inhalation DAILY #4 grams 08/04/24 mcg/actuation mist for inhalation (Spiriva Respimat) ipratropium 0.5 mg-albuterol 3 mg 3 ml UPD Q4H PRN PRN shortness of 12/15/24 (2.5 mg base)/3 mL nebulization breath or wheezing #540 mL soln prednisone 50 mg tablet 50 mg PO DAILY #5 tabs 01/27/25 Allergies Allergy/AdvReac Type Severity Reaction Status Date / Time bee pollen Allergy Hives Verified 01/27/25 01:36 hazelnut Allergy Hives Verified 01/27/25 01:36 peanut Allergy hallucinati Verified 01/27/25 01:36 on tree nut Allergy hallucinati Verified 01/27/25 01:36 on gabapentin AdvReac Severe vomiting Verified 01/27/25 01:36 varenicline (From Chantix) AdvReac Intermediate depression Verified 01/27/25 01:36 amoxicillin AdvReac Nausea Verified 01/27/25 01:36 fluoxetine (From Prozac) AdvReac Nausea Verified 01/27/25 01:36 trazodone AdvReac Weight gain Verified 01/27/25 01:36 abelox Allergy Hives Uncoded 01/27/25 01:36 General Stated Complaint: Abd Prob ZACK: 3 Review of Systems All systems reviewed & are unremarkable except as noted in HPI and below Constitutional Constitutional: Denies chills, Denies fever(s) and Denies weakness Cardiovascular Cardiovascular: Denies chest pain and Denies dyspnea Respiratory Respiratory: Denies cough and Denies dyspnea Gastrointestinal Gastrointestinal: Reports abdominal pain, Reports nausea and Denies vomiting Neurologic Neurologic: Denies weakness Psychiatric Psychiatric: Denies depression Exam Const General: no acute distress Orientation: alert HENMT Head: normal to inspection Ears: external ears normal General nose exam: external nose normal Mouth: moist mucous membranes Eyes General: appearance normal, both eyes and all related structures Neck Neck: normal visual inspection Resp Effort & Inspection: normal respiratory effort and able to speak in complete sentences Cardio Rate: regular rate GI Palpation: soft and tender Skin General skin exam: no rashes or lesions noted Neuro General: patient alert and patient oriented x3 Extrem General: normal to inspection Psych Mental Status: mental status grossly normal Course Vital Signs Vital signs: Vital Signs Temperature 36.4 C L 03/01/25 22:27 Pulse 111 H 03/01/25 22:27 Respiratory Rate 22 03/01/25 22:27 Blood Pressure 167/86 H 03/01/25 22:27 Pulse Oximetry 94 03/01/25 22:27 Temperature 36.5 C 03/01/25 22:32 Temperature Source Tympanic 03/01/25 22:32 Pulse 108 H 03/01/25 22:32 Respiratory Rate 22 03/01/25 22:32 Blood Pressure 167/86 H 03/01/25 22:27 Blood Pressure Position Sitting 03/01/25 22:27 Pulse Oximetry 94 03/01/25 22:32 Oxygen Delivery Method Room Air 03/01/25 22:32 Oxygen Flow Rate 0 03/01/25 22:27 Pain Level 10 03/01/25 22:32 Medical Decision Making 49-year-old female who states she has had a prior cholecystectomy, history of migraines and chronic smoker who comes in with chief complaint of lower abdominal pain that started this morning and has been persistent throughout the day with some nausea. Denies any vomiting, fevers, chills, chest pain, difficulty breathing. She is stable on arrival, she has no abdominal tenderness in the upper quadrants, she is tender in the left lower and right lower quadrant. There is no distention of her abdomen. She denies any vaginal bleeding or discharge. No bloody bowel movements. Given the location of the pain we will proceed with CBC, CMP, lipase and CT abdomen pelvis to evaluate for entities such as appendicitis and diverticulitis. Patient will be signed out to oncoming provider pending labs and CT imaging. Differential Diagnosis Differential Diagnosis: UTI, diverticulitis, appendicitis Medical Records Medical records reviewed: Yes I reviewed the patient's medical records. Lab Data Lab results reviewed: Yes I reviewed the patient's lab results. Quality:SDOH Health Related Social Needs: Health related social needs food insecurity (Z59.41) PFSH All Active Problems (Updated 03/01/25 @ 22:44 by Uriah Blue MD) Abdominal pain (Acute) Spinal stenosis (Acute) Migraine (Chronic) Nicotine dependence, cigarettes, uncomplicated (Acute) Vitamin D deficiency (Acute) Tobacco abuse (Chronic) Medical History COPD (chronic obstructive pulmonary disease) Auditory hallucinations Left ventricular hypertrophy Obesity hypoventilation syndrome Schizoaffective disorder Post traumatic stress disorder Hyperlipidemia Asthma H/O suicide attempt ADHD Anxiety Bipolar disorder Non-insulin dependent diabetes mellitus Obesity (BMI 30.0-34.9) Hypertension Surgical History Status post bilateral salpingectomy S/P cholecystectomy Family History Other Adopted Social History Smoking/Tobacco Use Status: Current every day Tobacco Type: cigarettes Smoking packs per day: 0.25 Smoking cigarettes per day: 5.0 Years smoked: 40 Smoking pack-years: 10.00 Tobacco: How many years used: 40 Smoking risk assessment performed?: Yes Alcohol Intake: never Drug use: Occasionally Substance use type: marijuana Details: smokes marijuana about once per month 01/11/24 Housing: apartment Do you feel safe at home: Yes Do you feel safe in your relationship?: Yes Additional Social history: Lives with on [employer] in [facility]. She is disabled with her medical and mental health conditions. 22 year old daughter in [place].
[2025-03-01 22:43] LABS: Bilirubin Negative (Negative); Blood Large (Negative); Clarity Sl Cloudy (Clear); Glucose 100 mg/dL (Negative); Ketones Negative (Negative); Leukocyte Esterase Negative (Negative); Nitrite Negative (Negative); Specific Gravity 1.025 (1.005-1.025)
[2025-03-01 22:53] LABS: Bacteria Few HPF (Negative); Crystals Negative HPF (Negative); Epithelial Cells Few HPF (Negative)
[2025-03-01 22:54] LABS: C & S Indicated? No; Casts Negative LPF (Negative); Mucus Moderate (Negative)
[2025-03-01] MEDS: Ketorolac 15 MG/ML VIAL IVP (23:03)
[2025-03-01] MEDS: Prochlorperazine 10 MG/2 ML VIAL IVP (23:03)
[2025-03-01 23:29] LABS: Abs Immature Grans 0.05 10^3/uL (0.0-0.06); Absolute Basophil Count 0.04 10^3/uL (0.0-0.2); Absolute Eosinophil Count 0.12 10^3/uL (0.0-0.7); Absolute Lymphocyte Count 2.51 10^3/uL (1.2-3.4); Absolute Monocyte Count 0.46 10^3/uL (0.1-0.8); Absolute Neutrophil Count 4.23 10^3/uL (1.2-6.7); Basophils % 0.5 %; Eosinophils % 1.6 %; HCT 39.8 % (36.0-46.0); HGB 12.8 g/dL (11.2-15.7); Immature Grans % 0.7 %; Lymphocytes % 33.9 %; MCH 28.3 pg (27.0-33.0); MCHC 32.2 % (32.0-36.0); MCV 88 fL (80-95); MPV 9.6 fL (8.0-11.0); Monocytes % 6.2 %; Neutrophils % 57.1 %; Platelet Count 209 10^3/uL (130-400); RBC 4.52 10^6/uL (3.93-5.22); RDW 16.1 % (11.7-14.6); RDW-SD 52.2 fL; WBC 7.41 10^3/uL (4.4-10.8)
[2025-03-01] MEDS: Normal Saline Flush 10 ML SYR IVP (23:40)
[2025-03-01] MEDS: Omnipaque 350 MG/ML 100 ML BTL IJ (23:40)
[2025-03-01] MEDS: Normal Saline - Diluent 50 ML VIAL IJ (23:41)
[2025-03-01 23:45] LABS: ALT 9 U/L (14-59); AST 10 U/L (15-37); Albumin 2.1 g/dL (3.4-5.0); Alkaline Phosphatase 115 U/L (46-116); Anion Gap 4.3 mmol/L (3-11); BUN 16 mg/dL (7-18); Bilirubin, Direct 0.1 mg/dL (0.0-0.2); Bilirubin, Total 0.2 mg/dL (0.2-1.0); CO2 34.7 mmol/L (21.0-32.0); CREATININE 1.1 mg/dL (0.55-1.02); Calcium 8.6 mg/dL (8.5-10.1); Chloride 101 mmol/L (98-107); Estimated GFR 61.22 (mL/min/1.73m2); Glucose 170 mg/dL (74-106); Lipase 22 U/L (<78); Magnesium 1.6 mg/dL (1.8-2.4); Potassium 3.8 mmol/L (3.5-5.1); Sodium 140 mmol/L (136-145)
[2025-03-01 23:48] LABS: VALPROIC ACID 36.6 ug/mL
[2025-03-02] MEDS: Magnesium Gluconate 500 MG TAB 1000 MG PO (00:18)
[2025-03-02] MEDS: Normal Saline 250 ML 500 ML IV (00:19)
[2025-03-02] MEDS: Acetaminophen 500 MG TAB 1000 MG PO (00:20)
--- NOTE | 2025-03-02 00:25 | ED.PROG_ITS ---
Date of service: 03/01/25 Time of Service: 23:00 Medical Decision Making This patient was signed out to me. Please see previous notes for H&P and initial eval. In brief, 49yo M presenting with abdominal pain, concern for possible appendicitis or diverticulitis. Pending labs and CT imaging. Labs reviewed as below, CBC reassuring with no leukocytosis or anemia, CMP with no actionable abnormalities, Mg slightly low at 1.6 (replacement ordered), lactate normal, UA with hematuria and not suggestive of infection. CT independently reviewed, no clear obstruction or free fluid on my view. Awaiting radiology read. On my assessment patient alert, well appearing, ambulating in department. Abdominal exam reassuring with no tenderness on my exam. She requests dilaudid for pain which I advised her was not indicated at this time; she did accept Tylenol. Shortly after I left the patient's room she notified nursing that staff that she now felt suicidal and was having thoughts of killing herself. Endorses plan to overdose on Benadryl and melatonin. She is well known to [facility] and was hospitalized about three months ago for psychiatric reasons; we will contact [facility] after radiology read is back if she is medically cleared at that time. Radiology read as below, no acute findings. [facility] evaluated patient; recommended inpatient treatment and patient is agreeable to this. Transferred to [facility] and home medications ordered. Will be signed out to oncoming erynan, plan remains as above. Imaging Data Radiologic Study: Imaging: CT Scan Radiologist's impression: IMPRESSION: No acute findings. Lab Data Lab results reviewed: Yes I reviewed the patient's lab results. Labs: Laboratory Tests Range/Units 03/01/25 03/01/25 03/01/25 22:35 23:04 23:14 WBC Cancelled RBC Cancelled Hgb Cancelled Hct Cancelled MCV Cancelled MCH Cancelled MCHC Cancelled RDW Cancelled Plt Count Cancelled MPV Cancelled Immature Gran % Cancelled Neutrophils % Cancelled Band Neutrophils % Cancelled Lymphocytes % Cancelled Atypical Lymphs % Cancelled Monocytes % Cancelled Eosinophils % Cancelled Basophils % Cancelled Metamyelocytes % Cancelled Myelocytes % Cancelled Promyelocytes % Cancelled Other Cells % Cancelled Nucleated RBC % Cancelled Absolute Neutrophils Cancelled Absolute Lymphocytes Cancelled Absolute Monocytes Cancelled Absolute Eosinophils Cancelled Absolute Basophils Cancelled RBC Morphology Cancelled Polychromasia Cancelled Hypochromasia Cancelled Poikilocytosis Cancelled Basophilic Stippling Cancelled Anisocytosis Cancelled Microcytosis Cancelled Macrocytosis Cancelled Spherocytes Cancelled Tear Drop Cells Cancelled Ovalocytes Cancelled Stomatocytes Cancelled Mix-[place] Bodies Cancelled Deborah Cells/Echinocytes Cancelled Acanthocytes (Spur) Cancelled Schistocytes Cancelled VBG Lactate (<or=2.0) mmol/L 2.0 Sodium Cancelled Potassium Cancelled Chloride Cancelled Carbon Dioxide Cancelled Anion Gap Cancelled BUN Cancelled Creatinine Cancelled Est GFR (CKD-EPI 2020) Cancelled Glucose Cancelled Calcium Cancelled Magnesium Cancelled Total Bilirubin Cancelled Conjugated Bilirubin Cancelled AST Cancelled ALT Cancelled Alkaline Phosphatase Cancelled Total Protein Cancelled Albumin Cancelled Lipase Cancelled Urine Color (Yellow) Yellow Urine Clarity (Clear) Sl Cloudy Urine pH (5-8) 7.0 Ur Specific [place] (1.005-1.025) 1.025 Urine Protein (Neg-Trace) mg/dL >=300 H Urine Ketones (Negative) mg/dL Negative Urine Blood (Negative) Large H Urine Nitrite (Negative) Negative Urine Bilirubin (Negative) Negative Urine Urobilinogen (Up to 0.2) mg/dL 1.0 H Ur Leukocyte Esterase (Negative) Negative Urine RBC (0-2) HPF 10-20 H Urine WBC (0-5) HPF 3-5 Ur Epithelial Cells (Negative) HPF Few Urine Crystals (Negative) HPF Negative Urine Bacteria (Negative) HPF Few Urine Casts (Negative) LPF Negative Urine Mucus (Negative) Moderate Ur Culture Indicated? No Urine Glucose (Negative) mg/dL 100 H Valproic Acid ( - 150) ug/mL 36.6 Range/Units 03/01/25 23:24 WBC 7.41 RBC 4.52 Hgb 12.8 Hct 39.8 MCV 88 MCH 28.3 MCHC 32.2 RDW 16.1 H Plt Count 209 MPV 9.6 Immature Gran % 0.7 Neutrophils % 57.1 Band Neutrophils % Lymphocytes % 33.9 Atypical Lymphs % Monocytes % 6.2 Eosinophils % 1.6 Basophils % 0.5 Metamyelocytes % Myelocytes % Promyelocytes % Other Cells % Nucleated RBC % 0.0 Absolute Neutrophils 4.23 Absolute Lymphocytes 2.51 Absolute Monocytes 0.46 Absolute Eosinophils 0.12 Absolute Basophils 0.04 RBC Morphology Polychromasia Hypochromasia Poikilocytosis Basophilic Stippling Anisocytosis Microcytosis Macrocytosis Spherocytes Tear Drop Cells Ovalocytes Stomatocytes Mix-[place] Bodies Deborah Cells/Echinocytes Acanthocytes (Spur) Schistocytes VBG Lactate (<or=2.0) mmol/L Sodium 140 Potassium 3.8 Chloride 101 Carbon Dioxide 34.7 H Anion Gap 4.3 BUN 16 Creatinine 1.1 H Est GFR (CKD-EPI 2020) 61.22 Glucose 170 H Calcium 8.6 Magnesium 1.6 L Total Bilirubin 0.2 Conjugated Bilirubin 0.1 AST 10 L ALT 9 L Alkaline Phosphatase 115 Total Protein 7.0 Albumin 2.1 L Lipase 22 Urine Color (Yellow) Urine Clarity (Clear) Urine pH (5-8) Ur Specific [place] (1.005-1.025) Urine Protein (Neg-Trace) mg/dL Urine Ketones (Negative) mg/dL Urine Blood (Negative) Urine Nitrite (Negative) Urine Bilirubin (Negative) Urine Urobilinogen (Up to 0.2) mg/dL Ur Leukocyte Esterase (Negative) Urine RBC (0-2) HPF Urine WBC (0-5) HPF Ur Epithelial Cells (Negative) HPF Urine Crystals (Negative) HPF Urine Bacteria (Negative) HPF Urine Casts (Negative) LPF Urine Mucus (Negative) Ur Culture Indicated? Urine Glucose (Negative) mg/dL Valproic Acid ( - 150) ug/mL Quality:SDOH Health Related Social Needs: Health related social needs food insecurity (Z59.41) Exam Narrative Exam Narrative: General: Alert, well appearing, well nourished, in no acute distress. Abd: ?Soft, non-distended, nontender : ?No suprapubic tenderness. Pysch: Calm, cooperative.? Adequately groomed.? Mood bad, affect congruent.? Speech with normal volume, rate, rythym and tone. Linear and goal directed.? + SI, denies HI/AH/VH. ? Does not appear to be responding to internal stimuli. Discharge Plan Discharge Details Chief Complaint: Abd Prob Clinical Impression: Abdominal pain, Suicidal ideation Primary Care Provider: BRYCE SMITH ED Provider: Demi Henderson Home Meds and New Rx's Prescriptions: No Action (DME) Oxygen Tank See Rx Instructions .Route Qty: 1 0RF Rx Instructions: 2LPM with exertion pregabalin [Lyrica] 50 mg capsule 50 mg PO BID Patient Comments: prescribed by JAMES Jennings ipratropium-albuterol 0.5 mg-3 mg(2.5 mg base)/3 mL solution for nebulization 3 ml UPD Q4H PRN PRN (Reason: shortness of breath or wheezing) Qty: 540 12RF Jardiance 25 mg tablet 25 mg PO DAILY Dulera 200-5 mcg/actuation HFA aerosol inhaler 2 puff inhalation BID Qty: 13 12RF Rx Instructions: Rinse mouth after use Spiriva Respimat 2.5 mcg/actuation mist 2 puff inhalation DAILY Qty: 4 12RF buspirone 30 mg tablet 60 mg PO BID Patient Comments: reports she is taking 60mg BID cyclobenzaprine 10 mg tablet 10 mg PO BID PRN PRN (Reason: muscle spasm) lisinopril 20 mg Tablet 20 mg PO DAILY divalproex [Depakote] 500 mg Tablet,Delayed Release (Dr/Ec) 1,000 mg PO HS risperidone [Risperdal] 2 mg Tablet 6 mg PO HS spironolactone 25 mg Tablet 25 mg PO DAILY Qty: 30 0RF atomoxetine 40 mg capsule 98 mg PO DAILY Patient Comments: TAKE two CAPSULE BY MOUTH EVERY MORNING melatonin 10 mg capsule 10 mg PO HS PRN PRN prazosin 5 mg capsule 10 mg PO QHS Patient Comments: TAKE TWO CAPSULES BY MOUTH EVERY EVENING AT BEDTIME ibuprofen 800 mg tablet 800 mg PO BID PRN PRN Patient Comments: TAKE ONE TABLET BY MOUTH TWICE A DAY NEEDED furosemide [Lasix] 20 mg tablet 20 mg PO DAILY Qty: 14 0RF albuterol sulfate 2.5 mg /3 mL (0.083 %) solution for nebulization 2.5 mg inhalation Q4H PRN PRN albuterol sulfate 90 mcg/actuation HFA aerosol inhaler 2 puff inhalation Q6H PRN PRN (Reason: shortness of breath or wheezing) lorazepam 0.5 mg tablet 0.5 mg PO DAILY PRN Patient Comments: TAKE ONE TABLET BY MOUTH EVERY DAY NEEDED FOR SEVERE ANXIETY sertraline 100 mg tablet 150 mg PO DAILY Patient Comments: TAKE ONE AND ONE-HALF TABLETS BY MOUTH EVERY DAY atomoxetine 18 mg capsule 18 mg PO DAILY Patient Comments: TAKE ONE CAPSULE BY MOUTH EVERY MORNING, TAKE WITH 80MG FOR TOTAL OF 98MG DAILY atomoxetine 80 mg capsule 80 mg PO DAILY Patient Comments: TAKE ONE CAPSULE BY MOUTH EVERY DAY WITH 18MG TO MAKE A TOTAL OF 98MG DAILY prednisone 50 mg tablet 50 mg PO DAILY Qty: 5 0RF (DME) blood-glucose meter [SparktrendTouch Verio Flex meter] [facility] MISCELLANEOUS Patient Comments: USE DIRECTED DAILY (DME) OneTouch Verio test strips Strip MISCELLANEOUS Patient Comments: USE ONE STRIP VIA METER EVERY DAY (DME) nebulizer and compressor [Comp-Air Nebulizer Compressor] Device MISCELLANEOUS Patient Comments: USE DIRECTED Januvia 100 mg tablet 100 mg PO DAILY Patient Comments: TAKE ONE TABLET BY MOUTH EVERY DAY DIRECTED FOR DIABETES (DME) lancets [OneTouch Delica Plus Lancet] 33 gauge amg [facility] MISCELLANEOUS Patient Comments: USE ONCE EVERY DAY
--- NOTE | 2025-03-02 00:25 | NUR.NOTE ---
0025: Pt initially denied SI/HI upon admission screening. Now tells this RN 'I lied to you earlier.... about being suicidal. I am suicidal'. When asked if she had a plan, pt shook her head no. This RN informed MD Henderson. Will notify [facility] for screening when CT results returned and she is medically cleared.
--- NOTE | 2025-03-02 00:32 | DI.VRAD_ITS ---
PROCEDURE INFORMATION: Exam: CT Abdomen And Pelvis With Contrast Exam date and time: 03/01/2025 11:35 PM Age: 49 years old Clinical indication: Localized; Prior surgery; Surgery date: 6+ months; Surgery type: Cholecystectomy; Lower abdominal pain TECHNIQUE: Imaging protocol: Computed tomography of the abdomen and pelvis with contrast. Radiation optimization: All CT scans at this facility use at least one of these dose optimization techniques: automated exposure control; mA and/or kV adjustment per patient size (includes targeted exams where dose is matched to clinical indication); or iterative reconstruction. Contrast material: [id number]; Contrast volume: 85 ml; Contrast route: INTRAVENOUS (IV); COMPARISON: CT ABDOMEN PELVIS CTA 11/04/2024 7:42 PM FINDINGS: Lungs: Lung bases are unremarkable. Heart: The heart demonstrates diffuse enlargement. Liver: Hepatomegaly. Gallbladder and biliary ducts: Post cholecystectomy. Pancreas: The pancreas is unremarkable. Spleen: No splenomegaly. No lesions. Adrenal glands: The adrenal glands are unremarkable. Kidneys and ureters: The kidneys are normal. Stomach and bowel: Moderate stool throughout the colon and rectum. Appendix: Normal appendix. Intraperitoneal space: Unremarkable. No free air. No significant fluid collection. Vasculature: There is moderate diffuse atherosclerotic disease of the abdominal aorta. Lymph nodes: Unremarkable. No enlarged lymph nodes. Urinary bladder: No focal wall thickening of the urinary bladder. Reproductive: The uterus is unremarkable. Bones/joints: Unremarkable. No acute fracture. Soft tissues: Soft tissues are unremarkable as visualized. IMPRESSION: No acute findings. Dictated and Authenticated by: Thalia Alvarenga MD. Orderin Mirza Kruse MD
[2025-03-02 01:23] VITALS: BP 168/75; PULSE 89; RESP 21; TEMP 36.6; O2SAT 90
--- NOTE | 2025-03-02 01:46 | PDOC.MHCN ---
Date of service: 03/02/25 Time of Service: 01:47 PHQ-9 Over the last 2 weeks, how often have you been bothered by any of the following problems? 1. Little interest or pleasure in doing things: nearly every day 2. Feeling down, depressed, or hopeless: nearly every day 3. Trouble falling or staying asleep, or sleeping too much: nearly every day 4. Feeling tired or having little energy: nearly every day 5. Poor appetite or overeating: nearly every day 6. Feeling bad about yourself - or that you are a failure or have let yourself and your family down: nearly every day 7. Trouble concentrating on things, such as reading the newspaper or watching television: several days 8. Moving or speaking so slowly that other people could have noticed? - Or the opposite - being so fidgety or restless that you have been moving around a lot more than usual: nearly every day 9. Thoughts that you would be better off or of hurting yourself in some way: nearly every day Total score: 25 If you checked off any problems, how difficult have these problems made it for you to do your work, take care of things at home, or get along with other people?: extremely difficult Source: Developed by Drs. Ronaldo Zamudio, Brandy Mitchell, Luis Amanda and colleagues, with an educational pablo from [employer]. Suicide Severity Rate CSSRS Have you wished you were or wished you could go to sleep and not wake up?: Yes Have you actually had any thoughts of killing yourself?: Yes CSSRS2 Have you been thinking about how you might do this?: Yes Have you had these thoughts and had some intention of acting on them?: No Have you started to work out or worked out the details of how to kill yourself? Do you intend to carry out this plan?: No CSSRS3 Have you ever done anything, started to do anything or prepared to do anything to end your life?: Yes CSSRS4 Was this within the past three months?: No Screening Score Total Score: 6 Screening: Positive Mental Health Emergency Note Release [facility] release signed:: Yes Reason for Visit Abdominal pain, and SI. In the last 2 weeks has the pt presented for ES prior to today?: No Client Information Well Housed: Yes Non Suicidal Self Injury Current: No History: No Safety Risk/Harm to Self or Others Current Ideation to Harm Self or Others: Yes to self. Intent: yes, has intent. Plan: yes,has a plan. History of suicide attempt: yes,history of suicide attempt reported. Details of previous suicide attempt: The client reports attempting to end her life 19 times on medications. Risk: Does risk to harm exist?: yes. Access to means: No. Risk: Moderate Risk Duty to warn indicated: No Asssessment/Mental Status Appearance: Disheveled Attitude: Cooperative and Friendly Behavior: Other (Tired) Speech: Normal Affect: Cogruent with mood Mood: Depressed Hallucinations: yes, Auditory (The client reports hearing a male voice in her head telling her to kill herself, she is no good and deserves to . ) Delusions: No Attention: Unremarkable Perception: Not impaired Orientation: Fully orientated Memory: Intact Insight: Fair Judgement: Fair Neurovegetative Symptoms Sleep: Decrease Appetitie: Increase Interests: Decrease Energy: Decrease Libido: Not applicable Substance Use: Other (No) Drug Issues: Other (The client reports to use marijuana once a week.) Do you use nicotine?: Yes Have you used substances in the last 7 days?: yes, Marijuana, once a week. Additional Issues: Assaultive/Threatening Behavior: No Medical Concerns: No Client engaged in active self harm w/weapon: No Threatening to run away: No Child reported abuse/neglect: No Voluntarily presenting for services: Yes Domestic violence is a concern: No Extreme Psychosis or extreme behavior is present: No Impression The client is a 49 year old biological female who resides with her in [facility]. The client presents to [facility] ED for abdominal pain. Per [facility] ED staff the client had a negative work up and upon discharge was making suicidal statements with intent and plan. The client is seen in a dupo hospital gown in her hospital bed with a disheveled appearance. Affect is appears to be congruent with mood. Speech is in normal range. Client is friendly and cooperative; they report their mood as depressed. Thought process appears to be circumstantial and goal directed as she feels the need for treatment to learn coping skills. The client self reports to have auditory hallucinations of a male voice in her head telling her to kill herself, she is no good and deserves to . There are no delusions observed by this clinician. Cognitive assessment reveals orientation to person and place and time. The client reports decrease in sleep and an increase in appetite. The client states that things at home have not been going well, and that her and her have not been getting along. The client states that she has been feeling very depressed and having thoughts of ending her life by overdosing on Benadryl. The client reports she has attempted to end her life 19 times before by overdosing. The client states that on one occasion she took 3 bottles of Seroquel. The client reports attempting to overdose on valium and Benadryl. When asked on a scale from zero to ten, zero being I won't do anything to end my life and ten being I will find anyway to end my life by suicide if I leave the hospital. The client reports being at a 10 out of 10. The client scored 25/27 on the PHQ-9, and 4/6 on the CSSRS. The client denies HI and NSSI to this clinician. The client states that she wants to go back to [facility] for her mental health and to learn coping skills for her depression and SI. Plan/Disposition Recommended Disposition: Hospitalization No. Plan: The client will remain in the ED until placement is secured. The client will receive daily assessments by emergency services until the client is placed. Reports/communication Outcome discussed with: ED/Personnel
[2025-03-02] MEDS: diphenhydrAMINE 25 MG CAP PO (05:02)
--- NOTE | 2025-03-02 06:49 | ED.PROG_ITS ---
Date of service: 03/02/25 Time of Service: 06:49 Medical Decision Making This is a 49-year-old female patient with a past medical history significant for schizoaffective disorder, COPD, hypertension, boarding in our emergency department with suicidal ideation and a plan to overdose. Initially the patient presented for abdominal pain, and had a complete workup including laboratory studies which were reassuring and a CT scan that did not show any abnormalities to account for her symptoms. She did have hematuria without evidence of renal stone or other bladder abnormality. She then reported to nursing that she was feeling suicidal, with a plan to overdose on her Benadryl and melatonin. The patient is voluntary, medically cleared, and has been taking her home medicines. She has been hemodynamically appropriate and has not required any medications for sedation or restraint. During my shift the patient was accepted to [place] by Dr. Desai for inpatient psychiatric care. She remained calm and cooperative and was transported from this department without incident. Mel Mallory MD Medical Records Medical records reviewed: Yes I reviewed the patient's medical records. Lab Data Lab results reviewed: Yes I reviewed the patient's lab results. Quality:SDOH Health Related Social Needs: Health related social needs food insecurity (Z59.41) Discharge Plan Discharge Details Chief Complaint: Abd Prob Clinical Impression: Abdominal pain, Suicidal ideation Primary Care Provider: BRYCE SMITH ED Provider: Mel Mallory Home Meds and New Rx's Prescriptions: No Action (DME) Oxygen Tank See Rx Instructions .Route Qty: 1 0RF Rx Instructions: 2LPM with exertion pregabalin [Lyrica] 50 mg capsule 50 mg PO BID Patient Comments: prescribed by JAMES Jennings ipratropium-albuterol 0.5 mg-3 mg(2.5 mg base)/3 mL solution for nebulization 3 ml UPD Q4H PRN PRN (Reason: shortness of breath or wheezing) Qty: 540 12RF Jardiance 25 mg tablet 25 mg PO DAILY Dulera 200-5 mcg/actuation HFA aerosol inhaler 2 puff inhalation BID Qty: 13 12RF Rx Instructions: Rinse mouth after use Spiriva Respimat 2.5 mcg/actuation mist 2 puff inhalation DAILY Qty: 4 12RF buspirone 30 mg tablet 60 mg PO BID Patient Comments: reports she is taking 60mg BID cyclobenzaprine 10 mg tablet 10 mg PO BID PRN PRN (Reason: muscle spasm) lisinopril 20 mg Tablet 20 mg PO DAILY divalproex [Depakote] 500 mg Tablet,Delayed Release (Dr/Ec) 1,000 mg PO HS risperidone [Risperdal] 2 mg Tablet 6 mg PO HS spironolactone 25 mg Tablet 25 mg PO DAILY Qty: 30 0RF melatonin 10 mg capsule 10 mg PO HS PRN PRN prazosin 5 mg capsule 10 mg PO QHS Patient Comments: TAKE TWO CAPSULES BY MOUTH EVERY EVENING AT BEDTIME ibuprofen 800 mg tablet 800 mg PO BID PRN PRN Patient Comments: TAKE ONE TABLET BY MOUTH TWICE A DAY NEEDED furosemide [Lasix] 20 mg tablet 20 mg PO DAILY Qty: 14 0RF albuterol sulfate 2.5 mg /3 mL (0.083 %) solution for nebulization 2.5 mg inhalation Q4H PRN PRN albuterol sulfate 90 mcg/actuation HFA aerosol inhaler 2 puff inhalation Q6H PRN PRN (Reason: shortness of breath or wheezing) lorazepam 0.5 mg tablet 0.5 mg PO DAILY PRN Patient Comments: TAKE ONE TABLET BY MOUTH EVERY DAY NEEDED FOR SEVERE ANXIETY sertraline 100 mg tablet 150 mg PO DAILY Patient Comments: TAKE ONE AND ONE-HALF TABLETS BY MOUTH EVERY DAY atomoxetine 18 mg capsule 18 mg PO DAILY Patient Comments: TAKE ONE CAPSULE BY MOUTH EVERY MORNING, TAKE WITH 80MG FOR TOTAL OF 98MG DAILY atomoxetine 80 mg capsule 80 mg PO DAILY Patient Comments: TAKE ONE CAPSULE BY MOUTH EVERY DAY WITH 18MG TO MAKE A TOTAL OF 98MG DAILY prednisone 50 mg tablet 50 mg PO DAILY Qty: 5 0RF (DME) blood-glucose meter [eTelemetryuch Verio Flex meter] [facility] MISCELLANEOUS Patient Comments: USE DIRECTED DAILY (DME) OneTouch Verio test strips Strip MISCELLANEOUS Patient Comments: USE ONE STRIP VIA METER EVERY DAY (DME) nebulizer and compressor [Comp-Air Nebulizer Compressor] Device MISCELLANEOUS Patient Comments: USE DIRECTED Januvia 100 mg tablet 100 mg PO DAILY Patient Comments: TAKE ONE TABLET BY MOUTH EVERY DAY DIRECTED FOR DIABETES (DME) lancets [NexalogyTouch Delica Plus Lancet] 33 gauge [facility] MISCELLANEOUS Patient Comments: USE ONCE EVERY DAY
[2025-03-02] MEDS: LORazepam 0.5 MG TAB PO ×2 (07:11→14:29)
[2025-03-02] MEDS: Tiotropium Bromide-Respimat 10 PUFF INH 2 PUFF IH (08:12)
[2025-03-02] MEDS: busPIRone 15 MG TAB 60 MG PO (08:14)
[2025-03-02] MEDS: Empaglifozin 25 MG TAB PO (08:15)
[2025-03-02] MEDS: Lisinopril 10 MG TAB 20 MG PO (08:16)
[2025-03-02] MEDS: Pregabalin 50 MG CAP PO (08:17)
[2025-03-02] MEDS: Sertraline 100 MG TAB 150 MG PO (08:17)
[2025-03-02] MEDS: Spironolactone 25 MG TAB PO (08:18)
[2025-03-02] MEDS: SITagliptin 100 MG TAB PO (08:18)
[2025-03-02 08:36] VITALS: BP 179/117; PULSE 95; RESP 18; TEMP 37; O2SAT 93
[2025-03-02] MEDS: Furosemide 20 MG TAB PO (08:38)
[2025-03-02] MEDS: Budesonide/Formoterol 160/4.5 6 GM 60 PUFF INH IH (08:38)
[2025-03-02 10:56] VITALS: BP 184/92
--- NOTE | 2025-03-02 11:04 | CMSP_ITS ---
Date of service: 03/02/25 Time of Service: 11:04 Care Management Safety Plan Status Status: Voluntary Reason for Wait Reason for Wait: Inpatient Admission Safety Plan Safety Plan: VOLUNTARY FOR INPATIENT PSYCHIATRIC STABILIZATION.? Patient is appropriate in all interactions since arriving at [facility]; Pt has demonstrated appropriate coping and communication skills, has articulated his or her needs and concerns and is fully engaged during staff interactions. Cecilia was accepted to [facility] for inpatient psychiatric care today, and was transferred there this afternoon. She was agreeable to this plan. Safety plan has been established with patient, and care team, to adhere to patient goals, identify restrictions based on behavioral status, address nutriti on, and determine allowed personal belongings, tools for hygiene and personal care. Determine level of activity including ambulation, level of supervision, visitors, and determine privileges based on behaviors and level of engagement by pt. VOLUNTARY SAFETY PLAN: 1. Will remain on suicide precautions, in paper clothes 2. Will remain in Zone B under direct supervision of one-on-one staff at all times provided by [employer]; MARLEE, ELECTRONIC PAGINATION SYSTEM OPERATOR supervisor dry paste. 3. May have paper cups, plates, finger foods as well as a cardboard spoon with which to eat meals. 4. Follow [facility] Management of the Admitted Behavioral Health Patient policy. 5. Shower available in Zone B without restriction. 6. Personal belongings-soft items permitted at RN discretion. 7. Visitors-none at this time. 8. Activities: soft cart items, hospital tablets (Netflix/Mika+/music) approved per RN discretion. 9.? Bathroom available in Zone B without restriction. 10. Phone: limited to [facility] cordless phone at RN discretion. Due to VOLUNTARY status, if patient wishes to leave [facility], staff will contact [facility] Crisis Screener ([phone]) and Occupational Health Nurse ([phone]) as soon as possible. In the event of elopement, notify [place] [employer] ([phone]). Patient is currently voluntarily at [facility] and seeking inpatient admission when a bed becomes available. [facility] Frontline Third Steel Pourer will continue seeking placement. Please contact the Occupational Health Nurse ([phone]) and [facility] Third Steel Pourer ([phone]) for any needed changes in the Safety Plan. Safety plan [facility].
--- NOTE | 2025-03-02 11:04 | PDOC.CMSAFE ---
Date of service: 03/02/25 Time of Service: 11:04 Care Management Safety Plan Status Status: Voluntary Reason for Wait Reason for Wait: Inpatient Admission Safety Plan Safety Plan: VOLUNTARY FOR INPATIENT PSYCHIATRIC STABILIZATION.? Patient is appropriate in all interactions since arriving at [facility]; Pt has demonstrated appropriate coping and communication skills, has articulated his or her needs and concerns and is fully engaged during staff interactions. Cecilia was accepted to [facility] for inpatient psychiatric care today, and was transferred there this afternoon. She was agreeable to this plan. Safety plan has been established with patient, and care team, to adhere to patient goals, identify restrictions based on behavioral status, address nutrition, and determine allowed personal belongings, tools for hygiene and personal care. Determine level of activity including ambulation, level of supervision, visitors, and determine privileges based on behaviors and level of engagement by pt. VOLUNTARY SAFETY PLAN: 1. Will remain on suicide precautions, in paper clothes 2. Will remain in Zone B under direct supervision of one-on-one staff at all times provided by [employer]; MARLEE, LINER ROLL CHANGER supervisor fish processing. 3. May have paper cups, plates, finger foods as well as a cardboard spoon with which to eat meals. 4. Follow [facility] Management of the Admitted Behavioral Health Patient policy. 5. Shower available in Zone B without restriction. 6. Personal belongings-soft items permitted at RN discretion. 7. Visitors-none at this time. 8. Activities: soft cart items, hospital tablets (Netflix/[place]+/music) approved per RN discretion. 9.? Bathroom available in Zone B without restriction. 10. Phone: limited to [facility] cordless phone at RN discretion. Due to VOLUNTARY status, if patient wishes to leave [facility], staff will contact [facility] Crisis Screener ([phone]) and Ticket Dispenser Changer ([phone]) as soon as possible. In the event of elopement, notify [place] [employer] ([phone]). Patient is currently voluntarily at [facility] and seeking inpatient admission when a bed becomes available. [facility] Frontline Biometrician will continue seeking placement. Please contact the Ticket Dispenser Changer ([phone]) and [facility] Biometrician ([phone]) for any needed changes in the Safety Plan. Safety plan has been provided to interdepartmental care team.
== END 2025-03-02 15:10 | disposition home or self-care (01) ==
PROVIDERS: Emergency Medicine; Student in an Organized Health Care Education/Training Program; Emergency Provider Emergency Medicine; PCP Nurse Practitioner Family
DX: R10.13 Epigastric pain (principal); J44.9 Chronic obstructive pulmonary disease, unspecified; E11.9 Type 2 diabetes mellitus without complications; I10 Essential (primary) hypertension; E78.5 Hyperlipidemia, unspecified; F17.210 Nicotine dependence, cigarettes, uncomplicated; Z99.81 Dependence on supplemental oxygen
CPT/HCPCS: 00123; 80053; 83690; 96127; 96361; 96374; 96375; 99285; 74177; 80164; 81003; 81015; 82248; 83605; 83735; 85025; 99284; J0780; J1885; J3490

== ENCOUNTER 2025-04-11 18:04 | Emergency (ER) | payer MEDICARE, MEDICAID, SELFPAY ==
[2025-04-11] VITALS (12 sets, daily range): BP systolic 148–173; BP diastolic 55–84; PULSE 87–95; RESP 8–18; TEMP 36.2; O2SAT 90–96
--- NOTE | 2025-04-11 18:00 | RT.EKG_ITS ---
APPROVED REPORT Exam: Resting ECG Reason for Exam: chest pain Patient Location: E HR:94 bpm ECG Measurements Heart Rate 94 AXIS SD 139 P 54 QRSd 84 QRS 69 QT 375 T 45 QTc 469 Conclusion Sinus rhythm 94 normal axis no stemi
[2025-04-11 18:30] LABS: BE (Venous) 3 mmol/L (-2-3); HCO3 (Venous) 29 mmol/L (23-28); O2 Sat (Venous) 66 %; TCO2 (Venous) 26 mmol/L (24-29); pCO2 (Venous) 49 mmHg (41-51); pH (Venous) 7.37 (7.31-7.41); pO2 (Venous) 34 mmHg
[2025-04-11 18:34] LABS: Abs Immature Grans 0.18 10^3/uL (0.0-0.06); Absolute Basophil Count 0.03 10^3/uL (0.0-0.2); Absolute Eosinophil Count 0.06 10^3/uL (0.0-0.7); Absolute Lymphocyte Count 1.86 10^3/uL (1.2-3.4); Absolute Monocyte Count 0.49 10^3/uL (0.1-0.8); Absolute Neutrophil Count 5.54 10^3/uL (1.2-6.7); Basophils % 0.4 %; Eosinophils % 0.7 %; HCT 38.6 % (36.0-46.0); HGB 12.8 g/dL (11.2-15.7); Immature Grans % 2.2 %; Lymphocytes % 22.8 %; MCHC 33.2 % (32.0-36.0); MCV 87 fL (80-95); MPV 9.2 fL (8.0-11.0); Neutrophils % 67.9 %; Platelet Count 291 10^3/uL (130-400); RBC 4.42 10^6/uL (3.93-5.22); RDW-SD 50.5 fL; WBC 8.16 10^3/uL (4.4-10.8)
[2025-04-11 18:56] LABS: ALT 10 U/L (14-59); AST 11 U/L (15-37); Albumin 2.8 g/dL (3.4-5.0); Alkaline Phosphatase 98 U/L (46-116); Anion Gap 8.2 mmol/L (3-11); BUN 17 mg/dL (7-18); Bilirubin, Total 0.2 mg/dL (0.2-1.0); CO2 28.8 mmol/L (21.0-32.0); Calcium 9.2 mg/dL (8.5-10.1); Chloride 102 mmol/L (98-107); Estimated GFR 68.63 (mL/min/1.73m2); Glucose 118 mg/dL (74-106); Potassium 3.8 mmol/L (3.5-5.1); Sodium 139 mmol/L (136-145); Total Protein 7.8 g/dL (6.4-8.2); Troponin I 20 ng/L (<or=51)
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
== END 2025-04-11 19:12 | disposition home or self-care (01) ==
PROVIDERS: Emergency Provider Emergency Medicine; PCP Nurse Practitioner Family
DX: R07.9 Chest pain, unspecified (principal); R20.2 Paresthesia of skin; Z59.41 Food insecurity; I10 Essential (primary) hypertension
CPT/HCPCS: 99283; 99284; 36415; 80053; 82805; 93005; 84484; 85025; 93010

== ENCOUNTER 2025-06-03 01:52 | Emergency (ER) | payer MEDICARE, MEDICAID, SELFPAY ==
[2025-06-03 01:27] VITALS: BP 182/137; PULSE 112; RESP 22; TEMP 36.6; O2SAT 94
--- NOTE | 2025-06-03 01:36 | W.ED.GENAD ---
Discharge Plan Discharge Details Chief Complaint: PsychEval Clinical Impression: Auditory hallucinations, Suicidal ideation Primary Care Provider: BRYCE SMITH ED Provider: Ronaldo Cole [place] Meds and New Rx's Prescriptions: No Action (DME) Oxygen Tank See Rx Instructions .Route Qty: 1 0RF Rx Instructions: 2LPM with exertion pregabalin [Lyrica] 50 mg capsule 50 mg PO BID Patient Comments: prescribed by JAMES Jennings ipratropium-albuterol 0.5 mg-3 mg(2.5 mg base)/3 mL solution for nebulization 3 ml UPD Q4H PRN PRN (Reason: shortness of breath or wheezing) Qty: 540 12RF Jardiance 25 mg tablet 25 mg PO DAILY Dulera 200-5 mcg/actuation HFA aerosol inhaler 2 puff inhalation BID Qty: 13 12RF Rx Instructions: Rinse mouth after use Spiriva Respimat 2.5 mcg/actuation mist 2 puff inhalation DAILY Qty: 4 12RF buspirone 30 mg tablet 60 mg PO BID Patient Comments: reports she is taking 60mg BID cyclobenzaprine 10 mg tablet 10 mg PO BID PRN PRN (Reason: muscle spasm) lisinopril 20 mg Tablet 20 mg PO DAILY divalproex [Depakote] 500 mg Tablet,Delayed Release (Dr/Ec) 1,000 mg PO HS risperidone [Risperdal] 2 mg Tablet 6 mg PO HS spironolactone 25 mg Tablet 25 mg PO DAILY Qty: 30 0RF melatonin 10 mg capsule 10 mg PO HS PRN PRN prazosin 5 mg capsule 10 mg PO QHS Patient Comments: TAKE TWO CAPSULES BY MOUTH EVERY EVENING AT BEDTIME ibuprofen 800 mg tablet 800 mg PO BID PRN PRN Patient Comments: TAKE ONE TABLET BY MOUTH TWICE A DAY NEEDED furosemide [Lasix] 20 mg tablet 20 mg PO DAILY Qty: 14 0RF albuterol sulfate 2.5 mg /3 mL (0.083 %) solution for nebulization 2.5 mg inhalation Q4H PRN PRN albuterol sulfate 90 mcg/actuation HFA aerosol inhaler 2 puff inhalation Q6H PRN PRN (Reason: shortness of breath or wheezing) lorazepam 0.5 mg tablet 0.5 mg PO DAILY PRN Patient Comments: TAKE ONE TABLET BY MOUTH EVERY DAY NEEDED FOR SEVERE ANXIETY sertraline 100 mg tablet 150 mg PO DAILY Patient Comments: TAKE ONE AND ONE-HALF TABLETS BY MOUTH EVERY DAY atomoxetine 18 mg capsule 18 mg PO DAILY Patient Comments: TAKE ONE CAPSULE BY MOUTH EVERY MORNING, TAKE WITH 80MG FOR TOTAL OF 98MG DAILY atomoxetine 80 mg capsule 80 mg PO DAILY Patient Comments: TAKE ONE CAPSULE BY MOUTH EVERY DAY WITH 18MG TO MAKE A TOTAL OF 98MG DAILY (DME) blood-glucose meter [OneTouch Verio Flex meter] [facility] MISCELLANEOUS Patient Comments: USE DIRECTED DAILY (DME) OneTouch Verio test strips Strip MISCELLANEOUS Patient Comments: USE ONE STRIP VIA METER EVERY DAY (DME) nebulizer and compressor [Comp-Air Nebulizer Compressor] Device MISCELLANEOUS Patient Comments: USE DIRECTED Januvia 100 mg tablet 100 mg PO DAILY Patient Comments: TAKE ONE TABLET BY MOUTH EVERY DAY DIRECTED FOR DIABETES (DME) lancets [OneTouch Delica Plus Lancet] 33 gauge [facility] MISCELLANEOUS Patient Comments: USE ONCE EVERY DAY HPI General Mode of arrival: EMS. Date/Time Provider Initiated Documentation: 06/03/25 02:47. Limitations to Documentation: no limitations. Information obtained by: patient, RN notes reviewed and old records reviewed. HPI Narrative: Patient presents to ED with complaint of suicidal thoughts and increased auditory hallucinations. Patient does have an appointment to see her psychiatrist on Friday, however, has been feeling increasingly unsafe at home with plan to overdose on sleeping pills. She is reporting an increase in her auditory hallucinations. Currently denies any physical complaints and reports that her breathing is pretty good at this point. She denies any headache, fever, chest pain, abdominal pain. She denies any attempt at self-harm at this point but feels unsafe at home. Related Data Home Medications ?Medication ?Instructions ?Recorded ?Confirmed divalproex 500 mg tablet,delayed 1,000 mg PO HS 01/18/20 06/03/25 release (Depakote) lisinopril 20 mg tablet 20 mg PO DAILY 01/18/20 06/03/25 risperidone 2 mg tablet (Risperdal) 6 mg PO HS 01/18/20 06/03/25 ibuprofen 800 mg tablet 800 mg PO BID PRN PRN 11/20/22 06/03/25 Oxygen #1 ea 12/13/22 03/01/25 spironolactone 25 mg tablet 25 mg PO DAILY #30 tabs 05/06/23 06/03/25 furosemide 20 mg tablet (Lasix) 20 mg PO DAILY #14 tabs 06/13/23 06/03/25 empagliflozin 25 mg tablet 25 mg PO DAILY 12/15/23 06/03/25 (Jardiance) buspirone 30 mg tablet 60 mg PO BID 02/09/24 06/03/25 cyclobenzaprine 10 mg tablet 10 mg PO BID PRN PRN muscle spasm 02/09/24 06/03/25 pregabalin 50 mg capsule (Lyrica) 50 mg PO BID 06/21/24 06/03/25 mometasone-formoterol HFA 200 2 puff inhalation BID #13 grams 08/04/24 06/03/25 mcg-5 mcg/actuation aerosol inhaler (Dulera) tiotropium bromide 2.5 2 puff inhalation DAILY #4 grams 08/04/24 06/03/25 mcg/actuation mist for inhalation (Spiriva Respimat) melatonin 10 mg capsule 10 mg PO HS PRN PRN 08/19/24 06/03/25 prazosin 5 mg capsule 10 mg PO QHS 08/20/24 06/03/25 ipratropium 0.5 mg-albuterol 3 mg 3 ml UPD Q4H PRN PRN shortness of 12/15/24 06/03/25 (2.5 mg base)/3 mL nebulization breath or wheezing #540 mL soln albuterol sulfate 2.5 mg/3 mL 2.5 mg inhalation Q4H PRN PRN 12/27/24 06/03/25 (0.083 %) solution for nebulization albuterol sulfate 90 mcg/actuation 2 puff inhalation Q6H PRN PRN 12/27/24 06/03/25 aerosol inhaler shortness of breath or wheezing atomoxetine 18 mg capsule 18 mg PO DAILY 01/16/25 06/03/25 atomoxetine 80 mg capsule 80 mg PO DAILY 01/16/25 06/03/25 lorazepam 0.5 mg tablet 0.5 mg PO DAILY PRN 01/16/25 06/03/25 sertraline 100 mg tablet 150 mg PO DAILY 01/16/25 06/03/25 blood sugar diagnostic (OneTouch 03/01/25 03/01/25 Verio test strips) blood-glucose meter (OneTouch 03/01/25 03/01/25 Verio Flex Meter) lancets 33 gauge (OneTouch Delica 03/01/25 03/01/25 Plus Lancet) nebulizer and compressor (Comp-Air 03/01/25 03/01/25 Nebulizer Compressor) sitagliptin phosphate 100 mg 100 mg PO DAILY 03/01/25 06/03/25 tablet (Januvia) Previous Rx's ?Medication ?Instructions ?Recorded Oxygen #1 ea 12/13/22 spironolactone 25 mg tablet 25 mg PO DAILY #30 tabs 05/06/23 furosemide 20 mg tablet (Lasix) 20 mg PO DAILY #14 tabs 06/13/23 mometasone-formoterol HFA 200 2 puff inhalation BID #13 grams 08/04/24 mcg-5 mcg/actuation aerosol inhaler (Dulera) tiotropium bromide 2.5 2 puff inhalation DAILY #4 grams 08/04/24 mcg/actuation mist for inhalation (Spiriva Respimat) ipratropium 0.5 mg-albuterol 3 mg 3 ml UPD Q4H PRN PRN shortness of 12/15/24 (2.5 mg base)/3 mL nebulization breath or wheezing #540 mL soln Allergies Allergy/AdvReac Type Severity Reaction Status Date / Time bee pollen Allergy Hives Verified 06/03/25 01:31 hazelnut Allergy Hives Verified 06/03/25 01:31 peanut Allergy hallucinati Verified 06/03/25 01:31 on tree nut Allergy hallucinati Verified 06/03/25 01:31 on gabapentin AdvReac Severe vomiting Verified 06/03/25 01:31 varenicline (From Chantix) AdvReac Intermediate depression Verified 06/03/25 01:31 amoxicillin AdvReac Nausea Verified 06/03/25 01:31 fluoxetine (From Prozac) AdvReac Nausea Verified 06/03/25 01:31 trazodone AdvReac Weight gain Verified 06/03/25 01:31 abelox Allergy Hives Uncoded 06/03/25 01:31 General Stated Complaint: PsychEval ZACK: 2 Exam Narrative Exam Narrative: Const: Obese in NAD. VS per triage. HEENT: NC/AT. Normal facial exam. Neck: Supple. Trachea midline. Lungs: Normal respiratory effort. Lungs with some diffuse scattered wheeze. Cor: RRR without murmur. Neuro: A+O x 3. Normal speech, mentation, gait. Cranial nerves II - XII grossly intact. No gross motor or sensory deficit. Psych: Reporting SI and AH. Fair eye contact but weepy during interview. Course Vital Signs Vital signs: Vital Signs Temperature 97.8 F 06/03/25 01:27 Pulse 112 H 06/03/25 01:27 Respiratory Rate 22 06/03/25 01:27 Blood Pressure 182/137 H 06/03/25 01:27 Pulse Oximetry 94 06/03/25 01:27 Temperature 97.8 F 06/03/25 01:27 Temperature Source Oral 06/03/25 01:27 Pulse 112 H 06/03/25 01:27 Respiratory Rate 22 06/03/25 01:27 Blood Pressure 182/137 H 06/03/25 01:27 Blood Pressure Position Sitting 06/03/25 01:27 Pulse Oximetry 94 06/03/25 01:27 Oxygen Delivery Method Room Air 06/03/25 01:27 Oxygen Flow Rate 0 06/03/25 01:27 Medical Decision Making Patient presenting to ED for mental health evaluation. She has no physical complaints tonight and is baseline from her COPD standpoint. Denies any attempt at self-harm at this time but does not feel safe at home. Urine drug screen has been sent. Will hold off on further lab studies as her chronic medical conditions appear baseline. Patient has been screened by mental [facility] and is felt appropriate for inpatient admission. She will be voluntary at this time. Given her chronic medical problems and plan for admission we will obtain screening labs including a Depakote level which she is prescribed. Referrals are being sent out by mental health. She will be placed in observation status pending inpatient admission. Laboratory studies are baseline with no significant abnormalities. Blood sugar little high. Depakote level is therapeutic. Alcohol, acetaminophen, salicylate acid negative. She is ordered for twice daily fingersticks. Her daily medications have been ordered. Lab Data Lab results reviewed: Yes I reviewed the patient's lab results. Lab results narrative: see MDM Quality:SDOH Health Related Social Needs: Health related social needs food insecurity PFSH All Active Problems (Updated 06/03/25 @ 04:18 by Ronaldo Cole MD) Suicidal ideation (Acute) Auditory hallucinations (Acute) Spinal stenosis (Acute) Migraine (Chronic) Nicotine dependence, cigarettes, uncomplicated (Acute) Vitamin D deficiency (Acute) Tobacco abuse (Chronic) Medical History COPD (chronic obstructive pulmonary disease) Auditory hallucinations Left ventricular hypertrophy Obesity hypoventilation syndrome Schizoaffective disorder Post traumatic stress disorder Hyperlipidemia Asthma H/O suicide attempt ADHD Anxiety Bipolar disorder Non-insulin dependent diabetes mellitus Obesity (BMI 30.0-34.9) Hypertension Surgical History Status post bilateral salpingectomy S/P cholecystectomy Family History Other Adopted Social History Smoking/Tobacco Use Status: Current every day Tobacco Type: cigarettes Smoking packs per day: 0.25 Smoking cigarettes per day: 5.0 Years smoked: 40 Smoking pack-years: 10.00 Tobacco: How many years used: 40 Smoking risk assessment performed?: Yes Alcohol Intake: never Drug use: Occasionally Substance use type: marijuana Housing: apartment Do you feel safe at home: Yes Do you feel safe in your relationship?: Yes Additional Social history: Lives with on [address] in [facility]. She is disabled with her medical and mental health conditions. 22 year old daughter in [place].
[2025-06-03 02:06] LABS: Cannabinoids THC Positive (Negative); METHADONE URINE SCREEN Negative (Negative)
--- NOTE | 2025-06-03 02:59 | PDOC.MHCN_ITS ---
Date of service: 06/03/25 Time of Service: 02:15 PHQ-9 Over the last 2 weeks, how often have you been bothered by any of the following problems? 1. Little interest or pleasure in doing things: nearly every day 2. Feeling down, depressed, or hopeless: nearly every day 3. Trouble falling or staying asleep, or sleeping too much: nearly every day 4. Feeling tired or having little energy: nearly every day 5. Poor appetite or overeating: nearly every day 6. Feeling bad about yourself - or that you are a failure or have let yourself and your family down: nearly every day 7. Trouble concentrating on things, such as reading the newspaper or watching television: nearly every day 8. Moving or speaking so slowly that other people could have noticed? - Or the opposite - being so fidgety or restless that you have been moving around a lot more than usual: nearly every day 9. Thoughts that you would be better off or of hurting yourself in some way: nearly every day Total score: 27 If you checked off any problems, how difficult have these problems made it for you to do your work, take care of things at home, or get along with other people?: very difficult PHQ-9 Results: Negative Source: Developed by Drs. Ronaldo Zamudio, Brandy Mitchell, Luis Amanda and colleagues, with an educational pablo from [employer] Suicide Severity Rate CSSRS Have you wished you were or wished you could go to sleep and not wake up?: Yes Have you actually had any thoughts of killing yourself?: Yes CSSRS2 Have you been thinking about how you might do this?: Yes Have you had these thoughts and had some intention of acting on them?: Yes Have you started to work out or worked out the details of how to kill yourself? Do you intend to carry out this plan?: Yes CSSRS3 Have you ever done anything, started to do anything or prepared to do anything to end your life?: Yes CSSRS4 Was this within the past three months?: Yes Screening Score Total Score: 8 Screening: Positive Mental Health Emergency Note Release [facility] release signed:: No Reason for Visit Si with a plan to overdose on sleeping pills or inhale carbon monoxide In the last 2 weeks has the pt presented for ES prior to today?: Unknown Client Information Client is: Adult Outpatient Non Suicidal Self Injury Current: No History: No Safety Risk/Harm to Self or Others Current Ideation to Harm Self or Others: Yes to self. Intent: yes, has intent. Plan: yes,has a plan. Risk: Does risk to harm exist?: yes. Risk: Moderate Risk Duty to warn indicated: No Asssessment/Mental Status Appearance: Other (paper clothes) Attitude: Cooperative Behavior: Unremarkable Speech: Normal Affect: Normal Mood: Sad and Depressed Thought process: Unremarkable Hallucinations: yes, Auditory and Command Delusions: No Attention: Unremarkable Perception: Not impaired Orientation: Fully orientated Memory: Intact Insight: Fair Judgement: Fair Neurovegetative Symptoms Sleep: Decrease Appetitie: Increase Interests: Decrease Energy: Decrease Libido: Not applicable Substance Use: Drug Issues: Other (Client stated she smoked Marijuana tonight, client stated she typically smokes once a month. ) Do you use nicotine?: Yes Have you used substances in the last 7 days?: yes, overdose on pills or inhale carbon monoxide Additional Issues: Assaultive/Threatening Behavior: No Medical Concerns: No Client engaged in active self harm w/weapon: No Threatening to run away: No Child reported abuse/neglect: No Voluntarily presenting for services: Yes Domestic violence is a concern: No Extreme Psychosis or extreme behavior is present: No Plan/Disposition Recommended Disposition: Hospitalization facilities contacted. Plan: Client will remain at [facility] awaiting placement. Referrals have been sent out. Person reported agreement to plan: Yes Reports/communication Outcome discussed with: ED/Personnel
--- NOTE | 2025-06-03 03:15 | NUR.NOTE ---
[facility] declined PT due to not being able to administer O2 at night. Nursing Note:
[2025-06-03 03:30] LABS: HCT 35.7 % (36.0-46.0); HGB 11.4 g/dL (11.2-15.7); MCH 29.6 pg (27.0-33.0); MCHC 31.9 % (32.0-36.0); MCV 93 fL (80-95); MPV 9.0 fL (8.0-11.0); Platelet Count 193 10^3/uL (130-400); RBC 3.85 10^6/uL (3.93-5.22); RDW 15.7 % (11.7-14.6); RDW-SD 53.4 fL; WBC 8.82 10^3/uL (4.4-10.8)
[2025-06-03 03:52] LABS: ALT 12 U/L (14-59); AST 9 U/L (15-37); Albumin 2.6 g/dL (3.4-5.0); Alkaline Phosphatase 146 U/L (46-116); Anion Gap 10.5 mmol/L (3-11); BUN 21 mg/dL (7-18); Bilirubin, Total 0.1 mg/dL (0.2-1.0); CO2 28.5 mmol/L (21.0-32.0); Calcium 8.1 mg/dL (8.5-10.1); Chloride 97 mmol/L (98-107); Estimated GFR 68.63 (mL/min/1.73m2); Glucose 234 mg/dL (74-106); Potassium 4.3 mmol/L (3.5-5.1); Sodium 136 mmol/L (136-145); Total Protein 6.9 g/dL (6.4-8.2)
[2025-06-03 04:01] LABS: Salicylate 4.9 mg/dL (<2.8)
[2025-06-03] MEDS: LORazepam 0.5 MG TAB PO (04:04)
[2025-06-03 04:08] VITALS: BP 157/81; PULSE 99; O2SAT 99
[2025-06-03 04:10] LABS: Acetaminophen < 2 ug/mL (10-30)
[2025-06-03 07:00] VITALS: O2SAT 94
--- NOTE | 2025-06-03 07:14 | ED.PROG1_ITS ---
Date of service: 06/03/25 Time of Service: 07:15 Psychiatric Border Handoff Update Brief Story: This is a 49-year-old female brought into the emergency department voluntarily today for suicidal ideation. She reports auditory hallucinations. Status: voluntary Able to leave: would need physician/ELISHA and crisis evaluation prior to leaving Behavioral Concerns: None Medical Concerns: Has oxygen requirement Mediation Reconciliation performed: Yes Code Status ordered: Yes Diet ordered: Yes Future to do Items: Referrals have been sent out to [facility] and [facility]. No active behavioral issues my shift. I signed patient out to Dr. Palacio. Discharge Plan Discharge Details Chief Complaint: PsychEval Clinical Impression: Auditory hallucinations, Suicidal ideation Primary Care Provider: BRYCE SMITH ED Provider: Patel Mckinney [facility] and New Rx's Prescriptions: No Action (DME) Oxygen Tank See Rx Instructions .Route Qty: 1 0RF Rx Instructions: 2LPM with exertion pregabalin [Lyrica] 50 mg capsule 50 mg PO BID Patient Comments: prescribed by Bryce Smith, PCP ipratropium-albuterol 0.5 mg-3 mg(2.5 mg base)/3 mL solution for nebulization 3 ml UPD Q4H PRN PRN (Reason: shortness of breath or wheezing) Qty: 540 12RF Jardiance 25 mg tablet 25 mg PO DAILY Dulera 200-5 mcg/actuation HFA aerosol inhaler 2 puff inhalation BID Qty: 13 12RF Rx Instructions: Rinse mouth after use Spiriva Respimat 2.5 mcg/actuation mist 2 puff inhalation DAILY Qty: 4 12RF buspirone 30 mg tablet 60 mg PO BID Patient Comments: reports she is taking 60mg BID cyclobenzaprine 10 mg tablet 10 mg PO BID PRN PRN (Reason: muscle spasm) lisinopril 20 mg Tablet 20 mg PO DAILY divalproex [Depakote] 500 mg Tablet,Delayed Release (Dr/Ec) 1,000 mg PO HS risperidone [Risperdal] 2 mg Tablet 6 mg PO HS spironolactone 25 mg Tablet 25 mg PO DAILY Qty: 30 0RF melatonin 10 mg capsule 10 mg PO HS PRN PRN prazosin 5 mg capsule 10 mg PO QHS Patient Comments: TAKE TWO CAPSULES BY MOUTH EVERY EVENING AT BEDTIME ibuprofen 800 mg tablet 800 mg PO BID PRN PRN Patient Comments: TAKE ONE TABLET BY MOUTH TWICE A DAY NEEDED furosemide [Lasix] 20 mg tablet 20 mg PO DAILY Qty: 14 0RF albuterol sulfate 2.5 mg /3 mL (0.083 %) solution for nebulization 2.5 mg inhalation Q4H PRN PRN albuterol sulfate 90 mcg/actuation HFA aerosol inhaler 2 puff inhalation Q6H PRN PRN (Reason: shortness of breath or wheezing) lorazepam 0.5 mg tablet 0.5 mg PO DAILY PRN Patient Comments: TAKE ONE TABLET BY MOUTH EVERY DAY NEEDED FOR SEVERE ANXIETY sertraline 100 mg tablet 150 mg PO DAILY Patient Comments: TAKE ONE AND ONE-HALF TABLETS BY MOUTH EVERY DAY atomoxetine 18 mg capsule 18 mg PO DAILY Patient Comments: TAKE ONE CAPSULE BY MOUTH EVERY MORNING, TAKE WITH 80MG FOR TOTAL OF 98MG DAILY atomoxetine 80 mg capsule 80 mg PO DAILY Patient Comments: TAKE ONE CAPSULE BY MOUTH EVERY DAY WITH 18MG TO MAKE A TOTAL OF 98MG DAILY (DME) blood-glucose meter [[employer] Verio Flex meter] [facility] MISCELLANEOUS Patient Comments: USE DIRECTED DAILY (DME) OneTouch Verio test strips Strip MISCELLANEOUS Patient Comments: USE ONE STRIP VIA METER EVERY DAY (DME) nebulizer and compressor [Comp-Air Nebulizer Compressor] Device MISCELLANEOUS Patient Comments: USE DIRECTED Januvia 100 mg tablet 100 mg PO DAILY Patient Comments: TAKE ONE TABLET BY MOUTH EVERY DAY DIRECTED FOR DIABETES (DME) lancets [OneTouch Delica Plus Lancet] 33 gauge [facility] MISCELLANEOUS Patient Comments: USE ONCE EVERY DAY
[2025-06-03] MEDS: Tiotropium Bromide-Respimat 10 PUFF INH 2 PUFF IH (09:12)
[2025-06-03] MEDS: Budesonide/Formoterol 160/4.5 6 GM 60 PUFF INH IH ×2 (09:12→20:41)
[2025-06-03] MEDS: busPIRone 15 MG TAB 60 MG PO ×3 (09:12→20:37)
[2025-06-03] MEDS: Pregabalin 50 MG CAP PO ×2 (09:13→20:39)
[2025-06-03] MEDS: Spironolactone 25 MG TAB PO (09:13)
[2025-06-03] MEDS: Furosemide 20 MG TAB PO (09:13)
[2025-06-03] MEDS: SITagliptin 100 MG TAB PO (09:13)
[2025-06-03] MEDS: Lisinopril 20 MG TAB PO (09:13)
[2025-06-03] MEDS: Empaglifozin 25 MG TAB PO (09:13)
[2025-06-03] MEDS: Sertraline 100 MG TAB 150 MG PO (09:13)
--- NOTE | 2025-06-03 14:38 | CMSP_ITS ---
Date of service: 06/03/25 Time of Service: 14:39 Care Management Safety Plan Status Status: Voluntary Reason for Wait Reason for Wait: Inpatient Admission Safety Plan Safety Plan: VOLUNTARY FOR INPATIENT PSYCHIATRIC STABILIZATION.? Patient is appropriate in all interactions since arriving at [facility]; Pt has demonstrated appropriate coping and communication skills, has articulated his or her needs and concerns and is fully engaged during staff interactions. Safety plan has been established with patient, and care team, to adhere to patient goals, identify restrictions based on behavioral status, address nutrition, and determine allowed personal belongings, tools for hygiene and personal care. Determine level of activity including ambulation, level of supervision, visitors, and determine privileges based on behaviors and level of engagement by pt. VOLUNTARY SAFETY PLAN: 1. Will remain on suicide precautions, in paper clothes 2. Will remain in Zone B under direct supervision of one-on-one staff at all times provided by [employer]; MARLEE, RATE SETTER vibrator equipment tester. 3. May have paper cups, plates, finger foods as well as a cardboard spoon with which to eat meals. 4. Follow [facility] Management of the Admitted Behavioral Health Patient policy. 5. Shower available in Zone B without restriction. 6. Personal belongings-soft items permitted at RN discretion. 7. Visitors- supportive visitors, at RN discretion. 8. Activities: soft cart items, hospital tablets (Netflix/[place]+/music) approved per RN discretion. 9.? Bathroom available in Zone B without restriction. 10. Phone: limited to [facility] cordless phone at RN discretion. Due to VOLUNTARY status, if patient wishes to leave [facility], staff will contact [facility] Crisis Screener ([phone]) and Order Builder ([phone]) as soon as possible. In the event of elopement, notify [facility] Police ([phone]). Patient is currently voluntarily at [facility] and seeking inpatient admission when a bed becomes available. [facility] Frontline Electronics Teacher will continue seeking placement. Please contact the Order Builder ([phone]) and [facility] Electronics Teacher ([phone]) for any needed changes in the Safety Plan. Safety plan has been provided to interdepartmental care team.
--- NOTE | 2025-06-03 14:38 | PDOC.CMSAFE ---
Date of service: 06/03/25 Time of Service: 14:39 Care Management Safety Plan Status Status: Voluntary Reason for Wait Reason for Wait: Inpatient Admission Safety Plan Safety Plan: VOLUNTARY FOR INPATIENT PSYCHIATRIC STABILIZATION.? Patient is appropriate in all interactions since arriving at [facility]; Pt has demonstrated appropriate coping and communication skills, has articulated his or her needs and concerns and is fully engaged during staff interactions. Safety plan has been established with patient, and care team, to adhere to patient goals, identify restrictions based on behavioral status, address nutrition, and determine allowed personal belongings, tools for hygiene and personal care. Determine level of activity including ambulation, level of supervision, visitors, and determine privileges based on behaviors and level of engagement by pt. VOLUNTARY SAFETY PLAN: 1. Will remain on suicide precautions, in paper clothes 2. Will remain in Zone B under direct supervision of one-on-one staff at all times provided by [employer]; MARLEE, DIVISION CHIEF collision worker. 3. May have paper cups, plates, finger foods as well as a cardboard spoon with which to eat meals. 4. Follow [facility] Management of the Admitted Behavioral Health Patient policy. 5. Shower available in Zone B without restriction. 6. Personal belongings-soft items permitted at RN discretion. 7. Visitors- supportive visitors, at RN discretion. 8. Activities: soft cart items, hospital tablets ([employer]flix/[place]+/music) approved per RN discretion. 9.? Bathroom available in Zone B without restriction. 10. Phone: limited to [facility] cordless phone at RN discretion. Due to VOLUNTARY status, if patient wishes to leave [facility], staff will contact [facility] Crisis Screener ([phone]) and Pastry Decorator ([phone]) as soon as possible. In the event of elopement, notify [facility] Police ([phone]). Patient is currently voluntarily at [facility] and seeking inpatient admission when a bed becomes available. [facility] Frontline Supervisor Communications And Signals will continue seeking placement. Please contact the Pastry Decorator ([phone]) and [facility] Supervisor Communications And Signals ([phone]) for any needed changes in the Safety Plan. Safety plan has been provided to interdepartmental care team.
--- NOTE | 2025-06-03 14:40 | CMPROGNOTE_ITS ---
Date of service: 06/03/25 Time of Service: 14:40 Care Management Progress Note Progress Note Text Progress Note Text: CM spoke to Cecilia's RN regarding her plan of care. Per RN, Cecilia has an appointment with her psychiatrist on Friday, but she doesn't feel safe at home currently. She was assessed by [facility] who have sent referrals for inpatient psychiatric treatment. She is voluntary, seeking placement. Safety plan in place; CM will continue to follow. Social Determinants of Health Screening Will the Patient Participate in the Screening?: Unable to obtain
[2025-06-03] MEDS: Ibuprofen 800 MG TAB PO (19:02)
[2025-06-03 20:04] VITALS: TEMP 37; O2SAT 108
[2025-06-03] MEDS: risperiDONE 1 MG TAB 6 MG PO (20:38)
[2025-06-03] MEDS: Prazosin 5 MG CAP 10 MG PO (20:40)
[2025-06-03] MEDS: Divalproex 500 MG TABEC 1000 MG PO (20:40)
--- NOTE | 2025-06-03 20:58 | PDOC.MHCN ---
Date of service: 06/03/25 Time of Service: 14:00 Mental Health Emergency Note Release [facility] release signed:: No Reason for Visit Auditory hallucinations telling the client to kill herself, suicidal ideation and depression In the last 2 weeks has the pt presented for ES prior to today?: Unknown Risk: Does risk to harm exist?: yes. Risk: High Risk Duty to warn indicated: No Asssessment/Mental Status Appearance: Disheveled and Poor hygiene Attitude: Cooperative and Guarded Behavior: Unremarkable Speech: Soft and Slow Affect: Cogruent with mood Mood: Sad, Stressed, Depressed and Anxious Thought process: Unremarkable Hallucinations: yes, Delusions: No evidence Attention: Unremarkable Perception: Not impaired Orientation: Fully orientated Memory: Intact Insight: Fair Judgement: Poor Neurovegetative Symptoms Sleep: No change Appetitie: No change Interests: No change Energy: No change Libido: Not applicable Additional Issues: Voluntarily presenting for services: Yes Impression The client is known to [facility]. She was reassessed today at [facility]. She appears disheveled and very emotional. She was unable to contain her emotions and cried during the encounter. The client stated that she's not ok. I'm not doing too good today. When asked to describe her mood, the client stated, I've been crying on and off all day. I'm depressed and suicidal because I hear voices and they tell me to kill myself. Client endorses active SI with plan to from carbon monoxide poisoning from car and 9/10 intent. The client denies HI. No plan. No intent. Client does not have access to means at [facility]. Client HX not assessed. Client is unable to identify any deterrents. Other high risk behaviors were not assessed. The client reported that she had chicken salad for lunch and had a shower. She did not sleep very well due to having trouble falling and staying asleep. She believes that she got a total of 4 hours of sleep. The client sated that she's been lying down and crying since she arrived at [facility]. The client continues to want to pursue voluntary inpatient MH treatmnet. Referrals have been updated with all hospitals. Plan/Disposition Plan: Client will remain at [facility] while she waits for voluntary inpatient MH treatment. Person reported agreement to plan: Yes Facilities contacted if Applicable [facility]
[2025-06-04 00:39] VITALS: BP 190/94; PULSE 93; RESP 20; TEMP 37.4; O2SAT 89
--- NOTE | 2025-06-04 01:15 | NUR.NOTE ---
PT moved to room with O2 Nursing Note:
--- NOTE | 2025-06-04 02:16 | ED.PROG_ITS ---
Date of service: 06/04/25 Time of Service: 02:16 Medical Decision Making Patient with desats to 80's while sleeping; known sleep apnea (does not use biPAP). Does well with 2LNC. Will move to main department overnight to provide this. Quality:SDOH Health Related Social Needs: Health related social needs food insecurity Discharge Plan Discharge Details Chief Complaint: PsychEval Clinical Impression: Auditory hallucinations, Suicidal ideation Primary Care Provider: BRYCE SMITH ED Provider: Demi Henderson Home Meds and New Rx's Prescriptions: No Action (DME) Oxygen Tank See Rx Instructions .Route Qty: 1 0RF Rx Instructions: 2LPM with exertion pregabalin [Lyrica] 50 mg capsule 50 mg PO BID Patient Comments: prescribed by JAMES Jennings ipratropium-albuterol 0.5 mg-3 mg(2.5 mg base)/3 mL solution for nebulization 3 ml UPD Q4H PRN PRN (Reason: shortness of breath or wheezing) Qty: 540 12RF Jardiance 25 mg tablet 25 mg PO DAILY Dulera 200-5 mcg/actuation HFA aerosol inhaler 2 puff inhalation BID Qty: 13 12RF Rx Instructions: Rinse mouth after use Spiriva Respimat 2.5 mcg/actuation mist 2 puff inhalation DAILY Qty: 4 12RF buspirone 30 mg tablet 60 mg PO BID Patient Comments: reports she is taking 60mg BID cyclobenzaprine 10 mg tablet 10 mg PO BID PRN PRN (Reason: muscle spasm) lisinopril 20 mg Tablet 20 mg PO DAILY divalproex [Depakote] 500 mg Tablet,Delayed Release (Dr/Ec) 1,000 mg PO HS risperidone [Risperdal] 2 mg Tablet 6 mg PO HS spironolactone 25 mg Tablet 25 mg PO DAILY Qty: 30 0RF melatonin 10 mg capsule 10 mg PO HS PRN PRN prazosin 5 mg capsule 10 mg PO QHS Patient Comments: TAKE TWO CAPSULES BY MOUTH EVERY EVENING AT BEDTIME ibuprofen 800 mg tablet 800 mg PO BID PRN PRN Patient Comments: TAKE ONE TABLET BY MOUTH TWICE A DAY NEEDED furosemide [Lasix] 20 mg tablet 20 mg PO DAILY Qty: 14 0RF albuterol sulfate 2.5 mg /3 mL (0.083 %) solution for nebulization 2.5 mg inhalation Q4H PRN PRN albuterol sulfate 90 mcg/actuation HFA aerosol inhaler 2 puff inhalation Q6H PRN PRN (Reason: shortness of breath or wheezing) lorazepam 0.5 mg tablet 0.5 mg PO DAILY PRN Patient Comments: TAKE ONE TABLET BY MOUTH EVERY DAY NEEDED FOR SEVERE ANXIETY sertraline 100 mg tablet 150 mg PO DAILY Patient Comments: TAKE ONE AND ONE-HALF TABLETS BY MOUTH EVERY DAY atomoxetine 18 mg capsule 18 mg PO DAILY Patient Comments: TAKE ONE CAPSULE BY MOUTH EVERY MORNING, TAKE WITH 80MG FOR TOTAL OF 98MG DAILY atomoxetine 80 mg capsule 80 mg PO DAILY Patient Comments: TAKE ONE CAPSULE BY MOUTH EVERY DAY WITH 18MG TO MAKE A TOTAL OF 98MG DAILY (DME) blood-glucose meter [[employer]I Verio Flex meter] [facility] MISCELLANEOUS Patient Comments: USE DIRECTED DAILY (DME) [employer] Verio test strips Strip MISCELLANEOUS Patient Comments: USE ONE STRIP VIA METER EVERY DAY (DME) nebulizer and compressor [Comp-Air Nebulizer Compressor] Device MISCELLANEOUS Patient Comments: USE DIRECTED Januvia 100 mg tablet 100 mg PO DAILY Patient Comments: TAKE ONE TABLET BY MOUTH EVERY DAY DIRECTED FOR DIABETES (DME) lancets [[employer] Delica Plus Lancet] 33 gauge [facility] MISCELLANEOUS Patient Comments: USE ONCE EVERY DAY
[2025-06-04 03:34] VITALS: O2SAT 94
--- NOTE | 2025-06-04 06:59 | ED.PSYCHBOAR ---
Date of service: 06/04/25 Time of Service: 07:00 Psychiatric Border Handoff Update Brief Story: In brief, this is a 49-year-old female patient with a past medical history significant for migraine, spinal stenosis, and psychiatric visits for suicidal ideation in the past, presenting with suicidal ideation with a plan to overdose as well as auditory hallucinations. Prior to my taking over care, the patient was medically cleared and placed on a psych observation status. She is voluntarily awaiting inpatient admission. During my shift, the patient was accepted to [facility], and will be transported there for ongoing management of her mental health conditions. She is hemodynamically appropriate, ambulatory, and tolerating oral intake. She did not require any interventions for agitation and did not require restraint or sedation. She left with EMS voluntarily for transport to [facility] for ongoing psychiatric care. Left our facility without incident. Mel Mallory MD Status: voluntary Able to leave: yes Behavioral Concerns: None Potential Disposition: Anticipate transfer to [facility] for inpatient psychiatric care Barriers to Disposition: Awaiting transportation/acceptance Medical Concerns: Sleep apnea requiring oxygen/CPAP at night Mediation Reconciliation performed: Yes Code Status ordered: Yes Diet ordered: Yes Discharge Plan Disposition Patient Disposition: Psychiatric Hospital/Unit Specific [facility] Discharge Details Clinical Impression: Auditory hallucinations, Suicidal ideation Primary Care Provider: BRYCE SMITH ED Provider: Mel Mallory Home Meds and New Rx's Prescriptions: No Action (DME) Oxygen Tank See Rx Instructions .Route Qty: 1 0RF Rx Instructions: 2LPM with exertion pregabalin [Lyrica] 50 mg capsule 50 mg PO BID Patient Comments: prescribed by JAMES Jennings ipratropium-albuterol 0.5 mg-3 mg(2.5 mg base)/3 mL solution for nebulization 3 ml UPD Q4H PRN PRN (Reason: shortness of breath or wheezing) Qty: 540 12RF Jardiance 25 mg tablet 25 mg PO DAILY Dulera 200-5 mcg/actuation HFA aerosol inhaler 2 puff inhalation BID Qty: 13 12RF Rx Instructions: Rinse mouth after use Spiriva Respimat 2.5 mcg/actuation mist 2 puff inhalation DAILY Qty: 4 12RF buspirone 30 mg tablet 60 mg PO BID Patient Comments: reports she is taking 60mg BID cyclobenzaprine 10 mg tablet 10 mg PO BID PRN PRN (Reason: muscle spasm) lisinopril 20 mg Tablet 20 mg PO DAILY divalproex [Depakote] 500 mg Tablet,Delayed Release (Dr/Ec) 1,000 mg PO HS risperidone [Risperdal] 2 mg Tablet 6 mg PO HS spironolactone 25 mg Tablet 25 mg PO DAILY Qty: 30 0RF melatonin 10 mg capsule 10 mg PO HS PRN PRN prazosin 5 mg capsule 10 mg PO QHS Patient Comments: TAKE TWO CAPSULES BY MOUTH EVERY EVENING AT BEDTIME ibuprofen 800 mg tablet 800 mg PO BID PRN PRN Patient Comments: TAKE ONE TABLET BY MOUTH TWICE A DAY NEEDED furosemide [Lasix] 20 mg tablet 20 mg PO DAILY Qty: 14 0RF albuterol sulfate 2.5 mg /3 mL (0.083 %) solution for nebulization 2.5 mg inhalation Q4H PRN PRN albuterol sulfate 90 mcg/actuation HFA aerosol inhaler 2 puff inhalation Q6H PRN PRN (Reason: shortness of breath or wheezing) lorazepam 0.5 mg tablet 0.5 mg PO DAILY PRN Patient Comments: TAKE ONE TABLET BY MOUTH EVERY DAY NEEDED FOR SEVERE ANXIETY sertraline 100 mg tablet 150 mg PO DAILY Patient Comments: TAKE ONE AND ONE-HALF TABLETS BY MOUTH EVERY DAY atomoxetine 18 mg capsule 18 mg PO DAILY Patient Comments: TAKE ONE CAPSULE BY MOUTH EVERY MORNING, TAKE WITH 80MG FOR TOTAL OF 98MG DAILY atomoxetine 80 mg capsule 80 mg PO DAILY Patient Comments: TAKE ONE CAPSULE BY MOUTH EVERY DAY WITH 18MG TO MAKE A TOTAL OF 98MG DAILY (DME) blood-glucose meter [QoL MedsTouch Verio Flex meter] [facility] MISCELLANEOUS Patient Comments: USE DIRECTED DAILY (DME) OneTouch Verio test strips Strip MISCELLANEOUS Patient Comments: USE ONE STRIP VIA METER EVERY DAY (DME) nebulizer and compressor [Comp-Air Nebulizer Compressor] Device MISCELLANEOUS Patient Comments: USE DIRECTED Januvia 100 mg tablet 100 mg PO DAILY Patient Comments: TAKE ONE TABLET BY MOUTH EVERY DAY DIRECTED FOR DIABETES (DME) lancets [OneTouch Delica Plus Lancet] 33 gauge [facility] MISCELLANEOUS Patient Comments: USE ONCE EVERY DAY Discharge Instructions Instructions: Depression, Adult ED Additional Instructions: You were seen in the emergency department for evaluation of suicidal ideation and auditory hallucinations. In our department you had a full medical clearance screening examination and reassuring laboratory studies. You met with a member of our behavioral health team and the decision was made to transfer you to [facility] for inpatient management of your psychiatric concerns. In the emergency department you remained hemodynamically appropriate, you are able to tolerate food and drink, and took all of your medications appropriately. Please follow-up with your outpatient providers as well as all recommendations made by the team at [facility]. Thank you for allowing us to be part of your care. Discharge Data Discharge Date/Time-TO BE ENTERED AT DEPARTURE: 06/04/25 10:49
[2025-06-04] MEDS: Empaglifozin 25 MG TAB PO (08:57)
[2025-06-04] MEDS: SITagliptin 100 MG TAB PO (08:57)
[2025-06-04] MEDS: Pregabalin 50 MG CAP PO (08:57)
[2025-06-04] MEDS: Lisinopril 20 MG TAB PO (08:57)
[2025-06-04] MEDS: Spironolactone 25 MG TAB PO (08:57)
[2025-06-04] MEDS: Sertraline 100 MG TAB 150 MG PO (08:57)
[2025-06-04] MEDS: Budesonide/Formoterol 160/4.5 6 GM 60 PUFF INH IH (08:58)
[2025-06-04] MEDS: Tiotropium Bromide-Respimat 10 PUFF INH 2 PUFF IH (08:58)
[2025-06-04] MEDS: Furosemide 20 MG TAB PO (09:22)
[2025-06-04 09:27] VITALS: BP 186/91; PULSE 105; RESP 18; TEMP 35.4; O2SAT 93
--- NOTE | 2025-06-04 11:44 | PDOC.CMDIS ---
Date of service: 06/04/25 Time of Service: 11:44 Care Management Discharge Plan Reason for Hospitalization: suicidal ideation Discharge Plan: Cecilia was transferred to [facility] for inpatient psychiatric care today. She was transported via [facility]. SDOH Health Related Social Needs: Health related social needs food insecurity Disposition Disposition: [facility] via of: EMS
== END 2025-06-04 10:49 ==
PROVIDERS: Emergency Medicine; Emergency Provider Emergency Medicine; PCP Nurse Practitioner Family
DX: R45.851 Suicidal ideations (principal); R44.0 Auditory hallucinations; J44.9 Chronic obstructive pulmonary disease, unspecified; E78.5 Hyperlipidemia, unspecified; I10 Essential (primary) hypertension; E11.9 Type 2 diabetes mellitus without complications; Z79.84 Long term (current) use of oral hypoglycemic drugs; Z99.81 Dependence on supplemental oxygen
CPT/HCPCS: 00123; 36415; 80053; 80307; 82962; 85027; 96127; 99285; 80164; 80320; 80329; J3490

== ENCOUNTER 2025-07-08 18:38 | Emergency (ER) | payer MEDICARE, MEDICAID, SELFPAY ==
[2025-07-08 18:39] VITALS: BP 155/89; PULSE 111; RESP 22; TEMP 37; O2SAT 94
--- NOTE | 2025-07-08 19:00 | DI.RAD_ITS ---
Exam(s) XR KNEE RT 3V AP,LAT,ORESTES EXAM: XR KNEE RT 3V AP,LAT,ORESTES CLINICAL HISTORY: right knee pain medially, effusion. TECHNIQUE: 2D digital imaging was performed. Three views. COMPARISON: No exams were available for comparison FINDINGS: BONES: No acute fracture is present. No bony destructive lesion is seen. JOINTS: Moderate narrowing of the medial femoral tibial joint space. Spurring at the femoral condyles and tibial plateaus as well as articular aspect of the patella. A moderate-sized joint effusion is seen. SOFT TISSUE: Normal. IMPRESSION: Degenerative changes. Joint effusion. No evidence of fracture. The preliminary [facility] report was reviewed. DATA REPOSITORY: RADIATION DOSE DELIVERED:
[2025-07-08] MEDS: Diclofenac 1% Gel 100 GM TUBE TP (19:05)
[2025-07-08 19:48] VITALS: BP 132/84; PULSE 95; RESP 18; TEMP 36.8; O2SAT 94
[2025-07-08] MEDS: oxyCODONE 10 MG TAB PO (20:29)
--- NOTE | 2025-07-08 20:29 | DI.[facility]_ITS ---
PROCEDURE INFORMATION: Exam: XR Right Knee Exam date and time: 07/08/2025 7:23 PM Age: 49 years old Clinical indication: Pain; Knee; Right TECHNIQUE: Imaging protocol: Radiologic exam of the right knee. Views: 3 views. COMPARISON: No relevant prior studies available. FINDINGS: Bones/joints: No acute fracture. Mild osteoarthritis. Suprapatellar effusion. Soft tissues: Normal. IMPRESSION: 1. No acute fracture. 2. Suprapatellar effusion. 3. Osteoarthritis. Dictated and Authenticated by: Zhang Wilson MD. Orderin Heather Lanza MD
--- NOTE | 2025-07-09 12:57 | NUR.NOTE ---
Access chart to print the demographic sheet for [facility] billing requisition. Nursing Note:
--- NOTE | 2025-07-09 18:29 | W.ED.GENAD ---
Discharge Plan Disposition Patient Disposition: Home Condition: Stable Discharge Details Clinical Impression: Effusion of knee Primary Care Provider: BRYCE SMITH ED Provider: Myla Romero Home Meds and New Rx's Prescriptions: Continued (DME) Oxygen Tank See Rx Instructions .Route Qty: 1 0RF Rx Instructions: 2LPM with exertion pregabalin [Lyrica] 50 mg capsule 50 mg PO BID Patient Comments: prescribed by JAMES Jennings ipratropium-albuterol 0.5 mg-3 mg(2.5 mg base)/3 mL solution for nebulization 3 ml UPD Q4H PRN PRN (Reason: shortness of breath or wheezing) Qty: 540 12RF Jardiance 25 mg tablet 25 mg PO DAILY Dulera 200-5 mcg/actuation HFA aerosol inhaler 2 puff inhalation BID Qty: 13 12RF Rx Instructions: Rinse mouth after use Spiriva Respimat 2.5 mcg/actuation mist 2 puff inhalation DAILY Qty: 4 12RF buspirone 30 mg tablet 60 mg PO BID Patient Comments: reports she is taking 60mg BID lisinopril 20 mg Tablet 20 mg PO DAILY divalproex [Depakote] 500 mg Tablet,Delayed Release (Dr/Ec) 1,000 mg PO HS risperidone [Risperdal] 2 mg Tablet 6 mg PO HS spironolactone 25 mg Tablet 25 mg PO DAILY Qty: 30 0RF melatonin 10 mg capsule 10 mg PO HS PRN PRN prazosin 5 mg capsule 10 mg PO QHS Patient Comments: TAKE TWO CAPSULES BY MOUTH EVERY EVENING AT BEDTIME ibuprofen 800 mg tablet 800 mg PO BID PRN PRN Patient Comments: TAKE ONE TABLET BY MOUTH TWICE A DAY NEEDED furosemide [Lasix] 20 mg tablet 20 mg PO DAILY Qty: 14 0RF albuterol sulfate 2.5 mg /3 mL (0.083 %) solution for nebulization 2.5 mg inhalation Q4H PRN PRN albuterol sulfate 90 mcg/actuation HFA aerosol inhaler 2 puff inhalation Q6H PRN PRN (Reason: shortness of breath or wheezing) lorazepam 0.5 mg tablet 0.5 mg PO DAILY PRN Patient Comments: TAKE ONE TABLET BY MOUTH EVERY DAY NEEDED FOR SEVERE ANXIETY sertraline 100 mg tablet 150 mg PO DAILY Patient Comments: TAKE ONE AND ONE-HALF TABLETS BY MOUTH EVERY DAY atomoxetine 18 mg capsule 18 mg PO DAILY Patient Comments: TAKE ONE CAPSULE BY MOUTH EVERY MORNING, TAKE WITH 80MG FOR TOTAL OF 98MG DAILY atomoxetine 80 mg capsule 80 mg PO DAILY Patient Comments: TAKE ONE CAPSULE BY MOUTH EVERY DAY WITH 18MG TO MAKE A TOTAL OF 98MG DAILY (DME) blood-glucose meter [Lestis Wind, Hydro & SolarTouch Verio Flex meter] [facility] MISCELLANEOUS Patient Comments: USE DIRECTED DAILY (DME) OneTouch Verio test strips Strip MISCELLANEOUS Patient Comments: USE ONE STRIP VIA METER EVERY DAY (DME) nebulizer and compressor [Comp-Air Nebulizer Compressor] Device MISCELLANEOUS Patient Comments: USE DIRECTED Januvia 100 mg tablet 100 mg PO DAILY Patient Comments: TAKE ONE TABLET BY MOUTH EVERY DAY DIRECTED FOR DIABETES (DME) lancets [Lestis Wind, Hydro & SolarTouch Delica Plus Lancet] 33 gauge [facility] MISCELLANEOUS Patient Comments: USE ONCE EVERY DAY Discharge Instructions Instructions: Swollen Joints (DC) Additional Instructions: apply diclofenac gel topically for pain ice, elevation take tylenol as needed you may take the oxycodone sparingly, this medication is addictive and can cause constipation recheck with pcp in one week wear knee brace when walking during day as needed return earlier with fever, chills, redness to site, or should any new concerns arise Referrals: BRYCE SMITH SECURITY SUPERVISOR [Primary Care Provider, Medicine] Discharge Data Discharge Date/Time-TO BE ENTERED AT DEPARTURE: 07/08/25 20:58 HPI General Date/Time Provider Initiated Documentation: 07/08/25 18:51. HPI Narrative: 49-year-old female presents with right knee pain and swelling after feeling a pop while running to catch a bus. Feels unsteady when walking. Pain is predominantly medial. Denies prior injury to this knee. Related Data Home Medications ?Medication ?Instructions ?Recorded ?Confirmed divalproex 500 mg tablet,delayed 1,000 mg PO HS 01/18/20 07/08/25 release (Depakote) lisinopril 20 mg tablet 20 mg PO DAILY 01/18/20 07/08/25 risperidone 2 mg tablet (Risperdal) 6 mg PO HS 01/18/20 07/08/25 ibuprofen 800 mg tablet 800 mg PO BID PRN PRN 11/20/22 07/08/25 Oxygen #1 ea 12/13/22 07/08/25 spironolactone 25 mg tablet 25 mg PO DAILY #30 tabs 05/06/23 07/08/25 furosemide 20 mg tablet (Lasix) 20 mg PO DAILY #14 tabs 06/13/23 07/08/25 empagliflozin 25 mg tablet 25 mg PO DAILY 12/15/23 07/08/25 (Jardiance) buspirone 30 mg tablet 60 mg PO BID 02/09/24 07/08/25 pregabalin 50 mg capsule (Lyrica) 50 mg PO BID 06/21/24 07/08/25 mometasone-formoterol HFA 200 2 puff inhalation BID #13 grams 08/04/24 07/08/25 mcg-5 mcg/actuation aerosol inhaler (Dulera) tiotropium bromide 2.5 2 puff inhalation DAILY #4 grams 08/04/24 07/08/25 mcg/actuation mist for inhalation (Spiriva Respimat) melatonin 10 mg capsule 10 mg PO HS PRN PRN 08/19/24 07/08/25 prazosin 5 mg capsule 10 mg PO QHS 08/20/24 07/08/25 ipratropium 0.5 mg-albuterol 3 mg 3 ml UPD Q4H PRN PRN shortness of 12/15/24 07/08/25 (2.5 mg base)/3 mL nebulization breath or wheezing #540 mL soln albuterol sulfate 2.5 mg/3 mL 2.5 mg inhalation Q4H PRN PRN 12/27/24 07/08/25 (0.083 %) solution for nebulization albuterol sulfate 90 mcg/actuation 2 puff inhalation Q6H PRN PRN 12/27/24 07/08/25 aerosol inhaler shortness of breath or wheezing atomoxetine 18 mg capsule 18 mg PO DAILY 01/16/25 07/08/25 atomoxetine 80 mg capsule 80 mg PO DAILY 01/16/25 07/08/25 lorazepam 0.5 mg tablet 0.5 mg PO DAILY PRN 01/16/25 07/08/25 sertraline 100 mg tablet 150 mg PO DAILY 01/16/25 07/08/25 blood sugar diagnostic (Lestis Wind, Hydro & Solaruch 03/01/25 07/08/25 Verio test strips) blood-glucose meter (Lestis Wind, Hydro & SolarRuffWire 03/01/25 07/08/25 Verio Flex Meter) lancets 33 gauge (OneTouch Delica 03/01/25 07/08/25 Plus Lancet) nebulizer and compressor (Comp-Air 03/01/25 07/08/25 Nebulizer Compressor) sitagliptin phosphate 100 mg 100 mg PO DAILY 03/01/25 07/08/25 tablet (Januvia) Previous Rx's ?Medication ?Instructions ?Recorded Oxygen #1 ea 12/13/22 spironolactone 25 mg tablet 25 mg PO DAILY #30 tabs 05/06/23 furosemide 20 mg tablet (Lasix) 20 mg PO DAILY #14 tabs 06/13/23 mometasone-formoterol HFA 200 2 puff inhalation BID #13 grams 08/04/24 mcg-5 mcg/actuation aerosol inhaler (Dulera) tiotropium bromide 2.5 2 puff inhalation DAILY #4 grams 08/04/24 mcg/actuation mist for inhalation (Spiriva Respimat) ipratropium 0.5 mg-albuterol 3 mg 3 ml UPD Q4H PRN PRN shortness of 12/15/24 (2.5 mg base)/3 mL nebulization breath or wheezing #540 mL soln Allergies Allergy/AdvReac Type Severity Reaction Status Date / Time bee pollen Allergy Hives Verified 06/03/25 01:31 hazelnut Allergy Hives Verified 06/03/25 01:31 peanut Allergy hallucinati Verified 06/03/25 01:31 on tree nut Allergy hallucinati Verified 06/03/25 01:31 on gabapentin AdvReac Severe vomiting Verified 06/03/25 01:31 varenicline (From Chantix) AdvReac Intermediate depression Verified 06/03/25 01:31 amoxicillin AdvReac Nausea Verified 06/03/25 01:31 fluoxetine (From Prozac) AdvReac Nausea Verified 06/03/25 01:31 trazodone AdvReac Weight gain Verified 06/03/25 01:31 abelox Allergy Hives Uncoded 06/03/25 01:31 General Stated Complaint: Orthopedic ZACK: 3 Exam Narrative Exam Narrative: General Appearance: Tearful. Vital signs: Within normal limits. HEENT: Within normal limits. Respiratory: Within normal limits. Back, Musculoskeletal: Extreme tenderness over medial knee, palpable effusion, no joint laxity, no right hip tenderness. Extremities: Neurovascularly intact bilaterally, no calf swelling or tenderness. Skin: Warm and dry, no rash. Neurological: Normal. Course Vital Signs Vital signs: Vital Signs Temperature 37.0 C 07/08/25 18:39 Pulse 111 H 07/08/25 18:39 Respiratory Rate 22 07/08/25 18:39 Blood Pressure 155/89 H 07/08/25 18:39 Pulse Oximetry 94 07/08/25 18:39 Temperature 36.8 C 07/08/25 19:48 Temperature Source Skin 07/08/25 19:48 Pulse 95 H 07/08/25 19:48 Respiratory Rate 18 07/08/25 19:48 Blood Pressure 132/84 07/08/25 19:48 Blood Pressure Mean 100 07/08/25 19:48 Blood Pressure Position Sitting 07/08/25 18:39 Pulse Oximetry 94 07/08/25 19:48 Oxygen Delivery Method Room Air 07/08/25 19:48 Oxygen Flow Rate 0 07/08/25 19:48 Pain Level 9 07/08/25 18:39 Medical Decision Making results- Imaging (X-ray of right knee): - Moderate-sized effusion 49-year-old female with right knee pain after running to catch a bus, feeling a pop, pain, and swelling. No history of prior injury to this knee. Differential Diagnosis: - Medial collateral ligament injury: Suspected based on medial tenderness and effusion. Orthopedic follow-up and hinged knee brace for comfort. - Other knee injuries: Less likely due to no obvious joint laxity and no history of prior injury. ED Course: - X-ray reviewed, showing moderate-sized effusion. - Administered 4 tablets of 5 mg oxycodone. - Applied hinged knee brace for comfort. Final Assessment: Medial collateral ligament injury. Administered oxycodone and applied hinged knee brace. Orthopedic follow-up arranged. Disposition: Discharge home with orthopedic follow-up. Return precautions reviewed and understood. Follow-Up: Referral to orthopedics placed. Patient Education: Return precautions reviewed and understood. Quality:SDOH Health Related Social Needs: Health related social needs food insecurity PFSH All Active Problems (Updated 07/08/25 @ 20:46 by GÉNESIS George) Effusion of knee (Acute) Spinal stenosis (Acute) Migraine (Chronic) Nicotine dependence, cigarettes, uncomplicated (Acute) Vitamin D deficiency (Acute) Tobacco abuse (Chronic) Medical History COPD (chronic obstructive pulmonary disease) Auditory hallucinations Left ventricular hypertrophy Obesity hypoventilation syndrome Schizoaffective disorder Post traumatic stress disorder Hyperlipidemia Asthma H/O suicide attempt ADHD Anxiety Bipolar disorder Non-insulin dependent diabetes mellitus Obesity (BMI 30.0-34.9) Hypertension Surgical History Status post bilateral salpingectomy S/P cholecystectomy Family History Other Adopted Social History Smoking/Tobacco Use Status: Current every day Tobacco Type: cigarettes Smoking packs per day: 0.25 Smoking cigarettes per day: 5.0 Years smoked: 40 Smoking pack-years: 10.00 Tobacco: How many years used: 40 Smoking risk assessment performed?: Yes Alcohol Intake: never Drug use: Occasionally Substance use type: marijuana Housing: apartment Do you feel safe at home: Yes Do you feel safe in your relationship?: Yes Additional Social history: [facility] [address] [facility] She is disabled with her medical and mental health conditions. 22 year old daughter in [place].
--- NOTE | 2025-07-26 06:42 | NUR.NOTE ---
Accessed Pt chart to print off the visit notes for [facility]
== END 2025-07-08 20:58 | disposition home or self-care (01) ==
PROVIDERS: Emergency Provider Physician Assistant; PCP Nurse Practitioner Family
DX: M25.461 Effusion, right knee (principal); Z59.41 Food insecurity
CPT/HCPCS: 99283 ×2; 29505; 73562

== ENCOUNTER 2025-08-02 00:24 | Emergency (ER) | payer MEDICARE, MEDICAID, SELFPAY ==
[2025-08-02] VITALS (39 sets, daily range): BP systolic 141–175; BP diastolic 72–90; PULSE 96–109; RESP 16–18; TEMP 36.4; O2SAT 88–100
--- NOTE | 2025-08-02 00:15 | RT.EKG_ITS ---
APPROVED REPORT Exam: Resting ECG Reason for Exam: Difficulty breathing Patient Location: E HR:101 bpm ECG Measurements Heart Rate 101 AXIS TX 139 P 50 QRSd 77 QRS 72 QT 355 T 40 QTc 461 Conclusion Sinus tachycardia...rate> 99 Consider anteroseptal infarct...Q >30mS, dimin R, V1-V2 I have reviewed and interpreted ECG and agree with software generated interpretation.
--- NOTE | 2025-08-02 00:30 | DI.RAD_ITS ---
Exam(s) XR PORTABLE CHEST AP EXAM: XR PORTABLE CHEST AP CLINICAL HISTORY: copd, SOB, eval for pneumonia. TECHNIQUE: 2D digital imaging was performed. COMPARISON: CR,XR XR CHEST 2V PA LATERAL from 01/27/2025 FINDINGS: Single AP portable view. Heart size is upper normal. The mediastinum is not widened. Increased bilateral vascular markings may indicate element of interstitial pulmonary edema. However, there are no Ghislaine B lines. There are no pleural effusions. Healed left 6 rib fracture again noted. IMPRESSION: Possible interstitial pulmonary edema. Recommend nonportable PA and lateral views when clinically possible. DATA REPOSITORY: RADIATION DOSE DELIVERED:
--- NOTE | 2025-08-02 00:32 | W.ED.GENAD ---
Discharge Plan Disposition Patient Disposition: Home Condition: Good Discharge Details Clinical Impression: COPD exacerbation Primary Care Provider: BRYCE SMITH ED Provider: Matty Palacio Home Meds and New Rx's Prescriptions: New prednisone 50 mg tablet 50 mg PO DAILY Qty: 5 0RF No Action (DME) Oxygen Tank See Rx Instructions .Route Qty: 1 0RF Rx Instructions: 2LPM with exertion pregabalin [Lyrica] 50 mg capsule 50 mg PO BID Patient Comments: prescribed by Bryce Smith, PCP ipratropium-albuterol 0.5 mg-3 mg(2.5 mg base)/3 mL solution for nebulization 3 ml UPD Q4H PRN PRN (Reason: shortness of breath or wheezing) Qty: 540 12RF Jardiance 25 mg tablet 25 mg PO DAILY Dulera 200-5 mcg/actuation HFA aerosol inhaler 2 puff inhalation BID Qty: 13 12RF Rx Instructions: Rinse mouth after use Spiriva Respimat 2.5 mcg/actuation mist 2 puff inhalation DAILY Qty: 4 12RF buspirone 30 mg tablet 60 mg PO BID Patient Comments: reports she is taking 60mg BID lisinopril 20 mg Tablet 20 mg PO DAILY divalproex [Depakote] 500 mg Tablet,Delayed Release (Dr/Ec) 1,000 mg PO HS risperidone [Risperdal] 2 mg Tablet 6 mg PO HS spironolactone 25 mg Tablet 25 mg PO DAILY Qty: 30 0RF melatonin 10 mg capsule 10 mg PO HS PRN PRN prazosin 5 mg capsule 10 mg PO QHS Patient Comments: TAKE TWO CAPSULES BY MOUTH EVERY EVENING AT BEDTIME ibuprofen 800 mg tablet 800 mg PO BID PRN PRN Patient Comments: TAKE ONE TABLET BY MOUTH TWICE A DAY NEEDED furosemide [Lasix] 20 mg tablet 20 mg PO DAILY Qty: 14 0RF albuterol sulfate 2.5 mg /3 mL (0.083 %) solution for nebulization 2.5 mg inhalation Q4H PRN PRN albuterol sulfate 90 mcg/actuation HFA aerosol inhaler 2 puff inhalation Q6H PRN PRN (Reason: shortness of breath or wheezing) lorazepam 0.5 mg tablet 0.5 mg PO DAILY PRN Patient Comments: TAKE ONE TABLET BY MOUTH EVERY DAY NEEDED FOR SEVERE ANXIETY sertraline 100 mg tablet 150 mg PO DAILY Patient Comments: TAKE ONE AND ONE-HALF TABLETS BY MOUTH EVERY DAY atomoxetine 18 mg capsule 18 mg PO DAILY Patient Comments: TAKE ONE CAPSULE BY MOUTH EVERY MORNING, TAKE WITH 80MG FOR TOTAL OF 98MG DAILY atomoxetine 80 mg capsule 80 mg PO DAILY Patient Comments: TAKE ONE CAPSULE BY MOUTH EVERY DAY WITH 18MG TO MAKE A TOTAL OF 98MG DAILY (DME) blood-glucose meter [OneTouch Verio Flex meter] [facility] MISCELLANEOUS Patient Comments: USE DIRECTED DAILY (DME) OneTouch Verio test strips Strip MISCELLANEOUS Patient Comments: USE ONE STRIP VIA METER EVERY DAY (DME) nebulizer and compressor [Comp-Air Nebulizer Compressor] Device MISCELLANEOUS Patient Comments: USE DIRECTED Januvia 100 mg tablet 100 mg PO DAILY Patient Comments: TAKE ONE TABLET BY MOUTH EVERY DAY DIRECTED FOR DIABETES (DME) lancets [OneTouch Delica Plus Lancet] 33 gauge [facility] MISCELLANEOUS Patient Comments: USE ONCE EVERY DAY Discharge Instructions Instructions: Exacerbation of COPD Additional Instructions: At this time you have evidence of a mild COPD exacerbation. There is no evidence of pneumonia on your chest x-ray. Please take the prednisone as prescribed to help with this exacerbation. Please continue to take your inhalers as prescribed. If you notice any worsening of your symptoms, or any new symptoms such as vomiting, diarrhea, fever, chills, shortness of breath, chest pain, numbness, weakness, or fainting , please return immediately to the emergency department for reevaluation. Please follow up with your primary care provider as soon as possible for reassessment and reevaluation. As always, it was a pleasure participating in your medical care today. Referrals: BRYCE SMITH NP [Primary Care Provider, Medicine] HPI General Date/Time Provider Initiated Documentation: 08/02/25 00:25. HPI Narrative: This is a 49-year-old female with a past medical history of COPD on a baseline of 2 to 3 L of home oxygen, still actively smoking, ADHD, diabetes, hypertension, cholecystectomy, salpingectomy, high cholesterol, depression, who presents today for evaluation of shortness of breath. She states that she has had a mild cough over the last few days, and then this evening she became more short of breath than normal. She did take her breathing treatments but this did not improve her symptoms. She contacted EMS and was brought in for further assessment. Patient was 88% on EMS arrival, uncertain if she was on oxygen or not at that time. She denies any fevers or chest pain or chest discomfort. She denies any other complaints. No productivity for her cough. No other modifying factors. Related Data Home Medications ?Medication ?Instructions ?Recorded ?Confirmed divalproex 500 mg tablet,delayed 1,000 mg PO HS 01/18/20 08/02/25 release (Depakote) lisinopril 20 mg tablet 20 mg PO DAILY 01/18/20 08/02/25 risperidone 2 mg tablet (Risperdal) 6 mg PO HS 01/18/20 08/02/25 ibuprofen 800 mg tablet 800 mg PO BID PRN PRN 11/20/22 08/02/25 Oxygen #1 ea 12/13/22 08/02/25 spironolactone 25 mg tablet 25 mg PO DAILY #30 tabs 05/06/23 08/02/25 furosemide 20 mg tablet (Lasix) 20 mg PO DAILY #14 tabs 06/13/23 08/02/25 empagliflozin 25 mg tablet 25 mg PO DAILY 12/15/23 08/02/25 (Jardiance) buspirone 30 mg tablet 60 mg PO BID 02/09/24 08/02/25 pregabalin 50 mg capsule (Lyrica) 50 mg PO BID 06/21/24 08/02/25 mometasone-formoterol HFA 200 2 puff inhalation BID #13 grams 08/04/24 08/02/25 mcg-5 mcg/actuation aerosol inhaler (Dulera) tiotropium bromide 2.5 2 puff inhalation DAILY #4 grams 08/04/24 08/02/25 mcg/actuation mist for inhalation (Spiriva Respimat) melatonin 10 mg capsule 10 mg PO HS PRN PRN 08/19/24 08/02/25 prazosin 5 mg capsule 10 mg PO QHS 08/20/24 08/02/25 ipratropium 0.5 mg-albuterol 3 mg 3 ml UPD Q4H PRN PRN shortness of 12/15/24 08/02/25 (2.5 mg base)/3 mL nebulization breath or wheezing #540 mL soln albuterol sulfate 2.5 mg/3 mL 2.5 mg inhalation Q4H PRN PRN 12/27/24 08/02/25 (0.083 %) solution for nebulization albuterol sulfate 90 mcg/actuation 2 puff inhalation Q6H PRN PRN 12/27/24 08/02/25 aerosol inhaler shortness of breath or wheezing atomoxetine 18 mg capsule 18 mg PO DAILY 01/16/25 08/02/25 atomoxetine 80 mg capsule 80 mg PO DAILY 01/16/25 08/02/25 lorazepam 0.5 mg tablet 0.5 mg PO DAILY PRN 01/16/25 08/02/25 sertraline 100 mg tablet 150 mg PO DAILY 01/16/25 08/02/25 blood sugar diagnostic ([facility] 03/01/25 08/02/25 Verio test strips) blood-glucose meter ([facility] 03/01/25 08/02/25 Verio Flex Meter) lancets [facility] 03/01/25 08/02/25 Plus Lancet) nebulizer and compressor (Comp-Air 03/01/25 08/02/25 Nebulizer Compressor) sitagliptin phosphate 100 mg 100 mg PO DAILY 03/01/25 08/02/25 tablet (Januvia) prednisone 50 mg tablet 50 mg PO DAILY #5 tabs 08/02/25 Previous Rx's ?Medication ?Instructions ?Recorded Oxygen #1 ea 12/13/22 spironolactone 25 mg tablet 25 mg PO DAILY #30 tabs 05/06/23 furosemide 20 mg tablet (Lasix) 20 mg PO DAILY #14 tabs 06/13/23 mometasone-formoterol HFA 200 2 puff inhalation BID #13 grams 08/04/24 mcg-5 mcg/actuation aerosol inhaler (Dulera) tiotropium bromide 2.5 2 puff inhalation DAILY #4 grams 08/04/24 mcg/actuation mist for inhalation (Spiriva Respimat) ipratropium 0.5 mg-albuterol 3 mg 3 ml UPD Q4H PRN PRN shortness of 12/15/24 (2.5 mg base)/3 mL nebulization breath or wheezing #540 mL soln prednisone 50 mg tablet 50 mg PO DAILY #5 tabs 08/02/25 Allergies Allergy/AdvReac Type Severity Reaction Status Date / Time bee pollen Allergy Hives Verified 08/02/25 00:26 hazelnut Allergy Hives Verified 08/02/25 00:26 peanut Allergy hallucinati Verified 08/02/25 00:26 on tree nut Allergy hallucinati Verified 08/02/25 00:26 on gabapentin AdvReac Severe vomiting Verified 08/02/25 00:26 varenicline (From Chantix) AdvReac Intermediate depression Verified 08/02/25 00:26 amoxicillin AdvReac Nausea Verified 08/02/25 00:26 fluoxetine (From Prozac) AdvReac Nausea Verified 08/02/25 00:26 trazodone AdvReac Weight gain Verified 08/02/25 00:26 abelox Allergy Hives Uncoded 08/02/25 00:26 General Stated Complaint: RespSymp ZACK: 3 Exam Narrative Exam Narrative: 1.Const: Well-nourished, Well-developed, appearing stated age 2.Eyes: PERRL, no conjunctival injection, and symmetrical lids. 3.ENT: Atraumatic external nose and ears. Moist MM. Neck: Symmetric, trachea midline, No thyromegaly. 4.CVS: +S1/S2, Peripheral pulses 2+ and equal in all extremities. Brisk capillary refill in all extremities. 5.RESP: Unlabored respiratory effort. Clear to auscultation bilaterally. No wheezes rales or rhonchi 6.GI: Soft, Nontender/Nondistended, No hepatosplenomegaly. No guarding or rebound. 7.MSK: Normocephalic/Atraumatic, Extremities w/o deformity or ttp No cyanosis or clubbing, Normal movement of all extremities 8.Skin: Warm, Dry. No rashes or lesions. 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 Sensation grossly intact, no focal neurologic deficits. 10.Psych: (AAO) x3. Appropriate mood and affect Diffuse wheezes throughout. No rhonchi or rales. No intercostal retractions. Course Vital Signs Vital signs: Vital Signs Temperature 36.4 C L 08/02/25 00:22 Pulse 103 H 08/02/25 00:22 Respiratory Rate 18 08/02/25 00:22 Blood Pressure 173/72 H 08/02/25 00:22 Pulse Oximetry 92 08/02/25 00:22 Temperature 36.4 C L 08/02/25 00:22 Temperature Source Tympanic 08/02/25 00:22 Pulse 103 H 08/02/25 00:22 Respiratory Rate 18 08/02/25 00:22 Blood Pressure 173/72 H 08/02/25 00:22 Blood Pressure Position Sitting 08/02/25 00:22 Pulse Oximetry 92 08/02/25 00:22 Oxygen Delivery Method Nasal Cannula 08/02/25 00: Oxygen Flow Rate 1 08/02/25 00:22 Medical Decision Making 4 AM On reassessment patient is feeling much better. Her wheezes have completely resolved. No persistent hypoxemia. This is a 49-year-old female with a past medical history of COPD on a baseline of 2 to 3 L of home oxygen, still actively smoking, ADHD, diabetes, hypertension, cholecystectomy, salpingectomy, high cholesterol, depression, who presents today for evaluation of shortness of breath. She states that she has had a mild cough over the last few days, and then this evening she became more short of breath than normal. She did take her breathing treatments but this did not improve her symptoms. She contacted EMS and was brought in for further assessment. Patient was 88% on EMS arrival, uncertain if she was on oxygen or not at that time. She denies any fevers or chest pain or chest discomfort. She denies any other complaints. No productivity for her cough. No other modifying factors. Exam demonstrates a well-appearing female, oxygenation is 91% on 3 L. Scattered wheezes throughout. No rhonchi or rails. Differential is highest for COPD exacerbation, however pneumonia is on the differential as well. Will get screening x-ray, give 2 breathing treatments, give 60 mg of prednisone, monitor closely and reassess. Symptoms inconsistent with ACS. EKG normal. No chest pain to suggest cardiac etiology. No pitting edema of lower extremities to suggest CHF. 4 AM Chest x-ray results show no evidence of pneumonia. Concern for increased interstitial markings suspicious for pulmonary edema however the patient does not show evidence of significant CHF on exam clinically. However we will give her some extra Lasix to help with questionable very mild fluid excess. On reassessment her wheezes has completely resolved, and she is feeling much better. No hypoxemia. Symptoms appear consistent with mild COPD exacerbation. We will give prescription for prednisone to be sent home, and recommend continued inhaler use at home. Patient is otherwise notably stable. Patient safe for discharge at this time based on current clinical assessment. Discussed red flags for which to return. I have extensively reviewed the treatment plan and discharge instructions with the patient. I have addressed all patient concerns at this time. The patient was made aware of what symptoms to monitor for that would warrant a return to the emergency department. Discussed the plan with the patient, they demonstrate verbal understanding and agreement with our assessment and plan at this time. The documentation in this chart was dictated using [employer] dictation software. Please excuse any dictation errors. FINDINGS: Lungs: There is diffuse interstitial prominence throughout both lungs. No focal airspace consolidation. Pleural spaces: No pleural effusion. No pneumothorax. Heart/Mediastinum: The heart is unchanged in size from the prior study. Bones/joints: Unremarkable. IMPRESSION: Increased interstitial markings suspicious for pulmonary edema. No focal airspace consolidation to suggest lobar pneumonia. Thank you for allowing us to participate in the care of your patient. Dictated and Authenticated by: Yolie Castanon MD 08/02/2025 2:00 AM Eastern Time ([place] & [place]) Quality:SDOH Health Related Social Needs: Health related social needs food insecurity PFSH All Active Problems (Updated 08/02/25 @ 03:04 by Matty Palacio DO) COPD exacerbation (Acute) Effusion of knee (Acute) Spinal stenosis (Acute) Migraine (Chronic) Nicotine dependence, cigarettes, uncomplicated (Acute) Vitamin D deficiency (Acute) Tobacco abuse (Chronic) Medical History COPD (chronic obstructive pulmonary disease) Auditory hallucinations Left ventricular hypertrophy Obesity hypoventilation syndrome Schizoaffective disorder Post traumatic stress disorder Hyperlipidemia Asthma H/O suicide attempt ADHD Anxiety Bipolar disorder Non-insulin dependent diabetes mellitus Obesity (BMI 30.0-34.9) Hypertension Surgical History Status post bilateral salpingectomy S/P cholecystectomy Family History Other Adopted Social History Smoking/Tobacco Use Status: Current every day Tobacco Type: cigarettes Smoking packs per day: 0.25 Smoking cigarettes per day: 5.0 Years smoked: 40 Smoking pack-years: 10.00 Tobacco: How many years used: 40 Smoking risk assessment performed?: Yes Alcohol Intake: never Drug use: Occasionally Substance use type: marijuana Housing: apartment Do you feel safe at home: Yes Do you feel safe in your relationship?: Yes Additional Social history: Lives with on [address] in [facility]. She is disabled with her medical and mental health conditions. 22 year old daughter in [place].
[2025-08-02] MEDS: Albuterol/Ipratropium 3 ML UPD VIAL 6 ML UPD (00:37)
[2025-08-02] MEDS: predniSONE 20 MG TAB 60 MG PO (00:37)
--- NOTE | 2025-08-02 02:01 | DI.VRAD_ITS ---
PROCEDURE INFORMATION: Exam: XR Chest Exam date and time: 08/02/2025 12:51 AM Age: 49 years old Clinical indication: Shortness of breath; Copd, SOB, eval for pneumonia TECHNIQUE: Imaging protocol: Radiologic exam of the chest. Views: 1 view. COMPARISON: CR XR CHEST 2V PA LATERAL 01/27/2025 2:49 AM FINDINGS: Lungs: There is diffuse interstitial prominence throughout both lungs. No focal airspace consolidation. Pleural spaces: No pleural effusion. No pneumothorax. Heart/Mediastinum: The heart is unchanged in size from the prior study. Bones/joints: Unremarkable. IMPRESSION: Increased interstitial markings suspicious for pulmonary edema. No focal airspace consolidation to suggest lobar pneumonia. Dictated and Authenticated by: Yolie Castanon MD. Orderin Pia Starr MD
[2025-08-02] MEDS: Albuterol/Ipratropium 3 ML UPD VIAL UPD (03:07)
[2025-08-02] MEDS: Furosemide 40 MG TAB PO (05:43)
== END 2025-08-02 06:56 | disposition home or self-care (01) ==
PROVIDERS: Emergency Provider Student in an Organized Health Care Education/Training Program; PCP Nurse Practitioner Family
DX: J44.1 Chronic obstructive pulmonary disease with (acute) exacerbation (principal)
CPT/HCPCS: 99284 ×2; 93005; 71045; 93010; J7512; J7620

== ENCOUNTER 2025-08-07 00:02 | Emergency (ER) | payer MEDICARE, MEDICAID, SELFPAY ==
[2025-08-06 23:47] VITALS: BP 186/74; PULSE 102; RESP 20; TEMP 37; O2SAT 90
[2025-08-07] VITALS (22 sets, daily range): BP systolic 176–197; BP diastolic 73–94; PULSE 87–113; RESP 18; TEMP 36.3–37; O2SAT 88–100
--- NOTE | 2025-08-07 00:15 | RT.EKG_ITS ---
APPROVED REPORT Exam: Resting ECG Reason for Exam: med clearance Patient Location: E HR:93 bpm ECG Measurements Heart Rate 93 AXIS IN 131 P 71 QRSd 84 QRS 76 QT 365 T 33 QTc 455 Conclusion Sinus rhythm...normal P axis, V-rate 60- [address] segment or T wave abnormalities to suggest occluisve ME
--- NOTE | 2025-08-07 00:28 | W.ED.GENAD ---
Discharge Plan Discharge Details Chief Complaint: PsychEval Clinical Impression: Suicide ideation Primary Care Provider: BRYCE SMITH ED Provider: Demi Henderson Home Meds and New Rx's Prescriptions: No Action (DME) Oxygen Tank See Rx Instructions .Route Qty: 1 0RF Rx Instructions: 2LPM with exertion pregabalin [Lyrica] 50 mg capsule 50 mg PO BID Patient Comments: prescribed by JAMES Jennings ipratropium-albuterol 0.5 mg-3 mg(2.5 mg base)/3 mL solution for nebulization 3 ml UPD Q4H PRN PRN (Reason: shortness of breath or wheezing) Qty: 540 12RF Jardiance 25 mg tablet 25 mg PO DAILY Dulera 200-5 mcg/actuation HFA aerosol inhaler 2 puff inhalation BID Qty: 13 12RF Rx Instructions: Rinse mouth after use Spiriva Respimat 2.5 mcg/actuation mist 2 puff inhalation DAILY Qty: 4 12RF buspirone 30 mg tablet 60 mg PO BID Patient Comments: reports she is taking 60mg BID lisinopril 20 mg Tablet 20 mg PO DAILY divalproex [Depakote] 500 mg Tablet,Delayed Release (Dr/Ec) 1,000 mg PO HS risperidone [Risperdal] 2 mg Tablet 6 mg PO HS spironolactone 25 mg Tablet 25 mg PO DAILY Qty: 30 0RF melatonin 10 mg capsule 10 mg PO HS PRN PRN prazosin 5 mg capsule 10 mg PO QHS Patient Comments: TAKE TWO CAPSULES BY MOUTH EVERY EVENING AT BEDTIME prednisone 50 mg tablet 50 mg PO DAILY Qty: 5 0RF ibuprofen 800 mg tablet 800 mg PO BID PRN PRN Patient Comments: TAKE ONE TABLET BY MOUTH TWICE A DAY NEEDED furosemide [Lasix] 20 mg tablet 20 mg PO DAILY Qty: 14 0RF albuterol sulfate 2.5 mg /3 mL (0.083 %) solution for nebulization 2.5 mg inhalation Q4H PRN PRN albuterol sulfate 90 mcg/actuation HFA aerosol inhaler 2 puff inhalation Q6H PRN PRN (Reason: shortness of breath or wheezing) lorazepam 0.5 mg tablet 0.5 mg PO DAILY PRN Patient Comments: TAKE ONE TABLET BY MOUTH EVERY DAY NEEDED FOR SEVERE ANXIETY sertraline 100 mg tablet 150 mg PO DAILY Patient Comments: TAKE ONE AND ONE-HALF TABLETS BY MOUTH EVERY DAY atomoxetine 18 mg capsule 18 mg PO DAILY Patient Comments: TAKE ONE CAPSULE BY MOUTH EVERY MORNING, TAKE WITH 80MG FOR TOTAL OF 98MG DAILY atomoxetine 80 mg capsule 80 mg PO DAILY Patient Comments: TAKE ONE CAPSULE BY MOUTH EVERY DAY WITH 18MG TO MAKE A TOTAL OF 98MG DAILY (DME) blood-glucose meter [OneTouch Verio Flex meter] [facility] [place] MISCELLANEOUS Patient Comments: USE DIRECTED DAILY (DME) OneTouch Verio test strips Strip MISCELLANEOUS Patient Comments: USE ONE STRIP VIA METER EVERY DAY (DME) nebulizer and compressor [Comp-Air Nebulizer Compressor] Device MISCELLANEOUS Patient Comments: USE DIRECTED Januvia 100 mg tablet 100 mg PO DAILY Patient Comments: TAKE ONE TABLET BY MOUTH EVERY DAY DIRECTED FOR DIABETES (DME) lancets [OneTouch Delica Plus Lancet] 33 gauge [facility] MISCELLANEOUS Patient Comments: USE ONCE EVERY DAY HPI General Mode of arrival: EMS. Date/Time Provider Initiated Documentation: 08/07/25 00:05. Limitations to Documentation: no limitations. Information obtained by: patient. HPI Narrative: 49yo F with hx depression, schizoaffective, bipolar, COPD on 3L o2 at night, DM, presenting with SI. Reports recent deaths in the family and increased stress, has been thinking about overdosing on 'all of my medications'. Prior SA via overdose. Worried she will act on these thoughts if she is alone. No hallucinations. Otherwise in her usual state of health with no fevers, chills, rash, nausea, vomiting, chest pain, difficutly breathing, or other concerns. Related Data Home Medications ?Medication ?Instructions ?Recorded ?Confirmed divalproex 500 mg tablet,delayed 1,000 mg PO HS 01/18/20 08/02/25 release (Depakote) lisinopril 20 mg tablet 20 mg PO DAILY 01/18/20 08/02/25 risperidone 2 mg tablet (Risperdal) 6 mg PO HS 01/18/20 08/02/25 ibuprofen 800 mg tablet 800 mg PO BID PRN PRN 11/20/22 08/02/25 Oxygen #1 ea 12/13/22 08/02/25 spironolactone 25 mg tablet 25 mg PO DAILY #30 tabs 05/06/23 08/02/25 furosemide 20 mg tablet (Lasix) 20 mg PO DAILY #14 tabs 06/13/23 08/02/25 empagliflozin 25 mg tablet 25 mg PO DAILY 12/15/23 08/02/25 (Jardiance) buspirone 30 mg tablet 60 mg PO BID 02/09/24 08/02/25 pregabalin 50 mg capsule (Lyrica) 50 mg PO BID 06/21/24 08/02/25 mometasone-formoterol HFA 200 2 puff inhalation BID #13 grams 08/04/24 08/02/25 mcg-5 mcg/actuation aerosol inhaler (Dulera) tiotropium bromide 2.5 2 puff inhalation DAILY #4 grams 08/04/24 08/02/25 mcg/actuation mist for inhalation (Spiriva Respimat) melatonin 10 mg capsule 10 mg PO HS PRN PRN 08/19/24 08/02/25 prazosin 5 mg capsule 10 mg PO QHS 08/20/24 08/02/25 ipratropium 0.5 mg-albuterol 3 mg 3 ml UPD Q4H PRN PRN shortness of 12/15/24 08/02/25 (2.5 mg base)/3 mL nebulization breath or wheezing #540 mL soln albuterol sulfate 2.5 mg/3 mL 2.5 mg inhalation Q4H PRN PRN 12/27/24 08/02/25 (0.083 %) solution for nebulization albuterol sulfate 90 mcg/actuation 2 puff inhalation Q6H PRN PRN 12/27/24 08/02/25 aerosol inhaler shortness of breath or wheezing atomoxetine 18 mg capsule 18 mg PO DAILY 01/16/25 08/02/25 atomoxetine 80 mg capsule 80 mg PO DAILY 01/16/25 08/02/25 lorazepam 0.5 mg tablet 0.5 mg PO DAILY PRN 01/16/25 08/02/25 sertraline 100 mg tablet 150 mg PO DAILY 01/16/25 08/02/25 blood sugar diagnostic ([facility] 03/01/25 08/02/25 Verio test strips) blood-glucose meter ([employer] 03/01/25 08/02/25 Verio Flex Meter) lancets 33 gauge ([employer] Delica 03/01/25 08/02/25 Plus Lancet) nebulizer and compressor (Comp-Air 03/01/25 08/02/25 Nebulizer Compressor) sitagliptin phosphate 100 mg 100 mg PO DAILY 03/01/25 08/02/25 tablet (Januvia) prednisone 50 mg tablet 50 mg PO DAILY #5 tabs 08/02/25 Previous Rx's ?Medication ?Instructions ?Recorded Oxygen #1 ea 12/13/22 spironolactone 25 mg tablet 25 mg PO DAILY #30 tabs 05/06/23 furosemide 20 mg tablet (Lasix) 20 mg PO DAILY #14 tabs 06/13/23 mometasone-formoterol HFA 200 2 puff inhalation BID #13 grams 08/04/24 mcg-5 mcg/actuation aerosol inhaler (Dulera) tiotropium bromide 2.5 2 puff inhalation DAILY #4 grams 08/04/24 mcg/actuation mist for inhalation (Spiriva Respimat) ipratropium 0.5 mg-albuterol 3 mg 3 ml UPD Q4H PRN PRN shortness of 12/15/24 (2.5 mg base)/3 mL nebulization breath or wheezing #540 mL soln prednisone 50 mg tablet 50 mg PO DAILY #5 tabs 08/02/25 Allergies Allergy/AdvReac Type Severity Reaction Status Date / Time bee pollen Allergy Hives Verified 08/07/25 06:01 hazelnut Allergy Hives Verified 08/07/25 06:01 peanut Allergy hallucinati Verified 08/07/25 06:01 on tree nut Allergy hallucinati Verified 08/07/25 06:01 on gabapentin AdvReac Severe vomiting Verified 08/07/25 06:01 varenicline (From Chantix) AdvReac Intermediate depression Verified 08/07/25 06:01 amoxicillin AdvReac Nausea Verified 08/07/25 06:01 fluoxetine (From Prozac) AdvReac Nausea Verified 08/07/25 06:01 trazodone AdvReac Weight gain Verified 08/07/25 06:01 abelox Allergy Hives Uncoded 08/07/25 06:01 General Stated Complaint: PsychEval ZACK: 2 Review of Systems Narrative: see HPI Exam Narrative Exam Narrative: General: Alert, well appearing, well nourished, in no acute distress. Head: Normocephalic, atraumatic Neck: Trachea midline, ?Neck supple. ENT: ?MMM.? No oropharygeal lesions or exudate. Cardiac: ?RRR, no murmurs appreciated Resp: No respiratory distress. CTAB. Abd: ?Soft, non-distended, nontender : ?No suprapubic tenderness. No CVA tenderness. Extremities: ?No deformities.? No peripheral edema. Neurologic: GCS 15. ? Moves all extremities freely against gravity Psych: Calm, cooperative.? Well groomed.? Mood sad, affect congruent.? Speech with normal volume, rate, rythym and tone. Linear and goal directed.? + SI. Denies HI/AH/VH. ? Does not appear to be responding to internal stimuli. Course Vital Signs Vital signs: Vital Signs Temperature 37.0 C 08/06/25 23:47 Pulse 102 H 08/06/25 23:47 Respiratory Rate 20 08/06/25 23:47 Blood Pressure 186/74 H 08/06/25 23:47 Pulse Oximetry 90 L 08/06/25 23:47 Temperature 37.0 C 08/06/25 23:47 Pulse 102 H 08/06/25 23:47 Respiratory Rate 20 08/06/25 23:47 Blood Pressure 186/74 H 08/06/25 23:47 Pulse Oximetry 90 L 08/06/25 23:47 Oxygen Delivery Method Room Air 08/06/25 23:47 Oxygen Flow Rate 0 08/06/25 23:47 Pain Level 0 08/06/25 23:47 Medical Decision Making 49yo F with hx depression, schizoaffective, bipolar, COPD (3L [place] O2 at night), DM, presenting with SI with plan to overdose. Hypertensive and slightly tachycardiac on arrival. O2 sat 90% in triage, sating 94% in room on room air on my assessment. Physical exam reassuring, no respiratory distress. Sad and slightly flat affect, reports plan to overdose on her home medications. States she did not take anything at home other than her usual medications in the amount she is prescribed, but she is worried that if she is left alone she might act on these thoughts. Screening labs reviewed as below, CBC reassuring (mild leukoctyosis, nonspecific, no infectious symptoms), CMP with no actionable abnormalities. EKG NSR, appropriate intervals, no ST segment or T wave abnormalities to suggest occlusive CO. [facility] evaluated patient and recommended inpatient treatment. Placed on ED observation status. Remains hypertensive overnight; will give home meds. Will be signed out to oncoming physican pending voluntary psychiatiriac placement. Lab Data Lab results reviewed: Yes I reviewed the patient's lab results. Labs: Laboratory Tests Range/Units 08/07/25 08/07/25 00:50 01:36 WBC (4.4-10.8) 10^3/uL 11.97 H RBC (3.93-5.22) 10^6/uL 3.97 Hgb (11.2-15.7) g/dL 11.4 Hct (36.0-46.0) % 35.7 L MCV (80-95) fL 90 MCH (27.0-33.0) pg 28.7 MCHC (32.0-36.0) % 31.9 L RDW (11.7-14.6) % 15.2 H Plt Count (130-400) 10^3/uL 197 MPV (8.0-11.0) fL 9.6 Immature Gran % % 1.8 Neutrophils % % 61.8 Lymphocytes % % 29.0 Monocytes % % 5.9 Eosinophils % % 1.1 Basophils % % 0.4 Nucleated RBC % (0.0-0.3) % 0.0 Absolute Neutrophils (1.2-6.7) 10^3/uL 7.40 H Absolute Lymphocytes (1.2-3.4) 10^3/uL 3.47 H Absolute Monocytes (0.1-0.8) 10^3/uL 0.71 Absolute Eosinophils (0.0-0.7) 10^3/uL 0.13 Absolute Basophils (0.0-0.2) 10^3/uL 0.05 Sodium (136-145) mmol/L 141 Potassium (3.5-5.1) mmol/L 3.5 Chloride (98-107) mmol/L 103 Carbon Dioxide (21.0-32.0) mmol/L 34.2 H Anion Gap (3-11) mmol/L 3.8 BUN (7-18) mg/dL 23 H Creatinine (0.55-1.02) mg/dL 0.9 Est GFR (CKD-EPI 2020) (mL/min/1.73m2) 77.88 Glucose (74-106) mg/dL 225 H Calcium (8.5-10.1) mg/dL 8.1 L Total Bilirubin (0.2-1.0) mg/dL 0.1 L AST (15-37) U/L 10 L ALT (14-59) U/L 12 L Alkaline Phosphatase (46-116) U/L 121 H Total Protein (6.4-8.2) g/dL 6.6 Albumin (3.4-5.0) g/dL 2.5 L Urine Color (Yellow) Yellow Urine Clarity (Clear) Clear Urine pH (5-8) 7.0 Ur Specific [place] (1.005-1.025) 1.025 Urine Protein (Neg-Trace) mg/dL >=300 H Urine Ketones (Negative) mg/dL Negative Urine Blood (Negative) Small H Urine Nitrite (Negative) Negative Urine Bilirubin (Negative) Negative Urine Urobilinogen (Up to 0.2) mg/dL 0.2 Ur Leukocyte Esterase (Negative) Negative Urine RBC (0-2) HPF Negative Urine WBC (0-5) HPF 3-5 Ur Epithelial Cells (Negative) HPF Few Urine Crystals (Negative) HPF Negative Urine Bacteria (Negative) HPF Negative Urine Casts (Negative) LPF Negative Urine Mucus (Negative) Negative Ur Culture Indicated? No/Sq. Contamination Urine Glucose (Negative) mg/dL 100 H Quality:SDOH Health Related Social Needs: Health related social needs food insecurity PFSH All Active Problems (Updated 08/07/25 @ 06:04 by Demi Henderson MD) Suicide ideation (Acute) COPD exacerbation (Acute) Effusion of knee (Acute) Spinal stenosis (Acute) Migraine (Chronic) Nicotine dependence, cigarettes, uncomplicated (Acute) Vitamin D deficiency (Acute) Tobacco abuse (Chronic) Medical History COPD (chronic obstructive pulmonary disease) Auditory hallucinations Left ventricular hypertrophy Obesity hypoventilation syndrome Schizoaffective disorder Post traumatic stress disorder Hyperlipidemia Asthma H/O suicide attempt ADHD Anxiety Bipolar disorder Non-insulin dependent diabetes mellitus Obesity (BMI 30.0-34.9) Hypertension Surgical History Status post bilateral salpingectomy S/P cholecystectomy Family History Other Adopted Social History Smoking/Tobacco Use Status: Current every day Tobacco Type: cigarettes Smoking packs per day: 0.25 Smoking cigarettes per day: 5.0 Years smoked: 40 Smoking pack-years: 10.00 Tobacco: How many years used: 40 Smoking risk assessment performed?: Yes Alcohol Intake: never Drug use: Occasionally Substance use type: marijuana Housing: apartment Do you feel safe at home: Yes Do you feel safe in your relationship?: Yes Additional Social history: Lives with on [employer] in [facility]. She is disabled with her medical and mental health conditions. 22 year old daughter in [place].
[2025-08-07 01:03] LABS: Abs Immature Grans 0.21 10^3/uL (0.0-0.06); HCT 35.7 % (36.0-46.0); HGB 11.4 g/dL (11.2-15.7); Immature Grans % 1.8 %; MCH 28.7 pg (27.0-33.0); MCHC 31.9 % (32.0-36.0); MCV 90 fL (80-95); MPV 9.6 fL (8.0-11.0); Platelet Count 197 10^3/uL (130-400); RBC 3.97 10^6/uL (3.93-5.22); RDW 15.2 % (11.7-14.6); RDW-SD 50.0 fL; WBC 11.97 10^3/uL (4.4-10.8)
[2025-08-07] MEDS: Lisinopril 10 MG TAB PO (01:17)
[2025-08-07 01:33] LABS: ALT 12 U/L (14-59); AST 10 U/L (15-37); Albumin 2.5 g/dL (3.4-5.0); Alkaline Phosphatase 121 U/L (46-116); Anion Gap 3.8 mmol/L (3-11); BUN 23 mg/dL (7-18); Bilirubin, Total 0.1 mg/dL (0.2-1.0); CO2 34.2 mmol/L (21.0-32.0); Calcium 8.1 mg/dL (8.5-10.1); Chloride 103 mmol/L (98-107); Estimated GFR 77.88 (mL/min/1.73m2); Glucose 225 mg/dL (74-106); Potassium 3.5 mmol/L (3.5-5.1); Sodium 141 mmol/L (136-145); Total Protein 6.6 g/dL (6.4-8.2)
[2025-08-07 01:51] LABS: Glucose 100 mg/dL (Negative)
[2025-08-07 02:23] LABS: RBC Negative HPF (0-2)
--- NOTE | 2025-08-07 04:26 | PDOC.MHCN_ITS ---
Date of service: 08/07/25 Time of Service: 14:55 PHQ-9 Over the last 2 weeks, how often have you been bothered by any of the following problems? 1. Little interest or pleasure in doing things: nearly every day 2. Feeling down, depressed, or hopeless: nearly every day 3. Trouble falling or staying asleep, or sleeping too much: nearly every day 4. Feeling tired or having little energy: nearly every day 5. Poor appetite or overeating: nearly every day 6. Feeling bad about yourself - or that you are a failure or have let yourself and your family down: nearly every day 7. Trouble concentrating on things, such as reading the newspaper or watching television: nearly every day 8. Moving or speaking so slowly that other people could have noticed? - Or the opposite - being so fidgety or restless that you have been moving around a lot more than usual: nearly every day 9. Thoughts that you would be better off or of hurting yourself in some way: nearly every day Total score: 27 If you checked off any problems, how difficult have these problems made it for you to do your work, take care of things at home, or get along with other people?: very difficult Source: Developed by Drs. Ronaldo Zamudio, Brandy Mitchell, Luis Amanda and colleagues, with an educational pablo from [employer]. Suicide Severity Rate CSSRS Have you wished you were or wished you could go to sleep and not wake up?: Yes Have you actually had any thoughts of killing yourself?: Yes CSSRS2 Have you been thinking about how you might do this?: Yes Have you had these thoughts and had some intention of acting on them?: Yes Have you started to work out or worked out the details of how to kill yourself? Do you intend to carry out this plan?: Yes CSSRS3 Have you ever done anything, started to do anything or prepared to do anything to end your life?: Yes CSSRS4 Was this within the past three months?: No Screening Score Total Score: 6 Screening: Positive Mental Health Emergency Note Release NK release signed:: Yes Reason for Visit The client presented to [facility] ED with SI with intent and plan. The client is known to [facility] and this clinician. The client reports to be supported by her caseworker intake Sherri, psychiatrists Dr. Ponce and her therapist Patel at [facility]. The client self reports to have been hospitalized multiple times in the past but could not remember how many times. The client stated the last time she was hospitalized for her mental health was a few months ago at [facility]. In the last 2 weeks has the pt presented for ES prior to today?: No Client Information Client is: Adult Outpatient Well Housed: Yes Non Suicidal Self Injury Current: No History: No Safety Risk/Harm to Self or Others Current Ideation to Harm Self or Others: Yes to self. (The client reports a plan of OD or inhaling carbon monoxide. The client rates her intent as a 10 out of 10.) Intent: yes, has intent. Plan: yes,has a plan. History of suicide attempt: yes,history of suicide attempt reported. Details of previous suicide attempt: The client reports a previous attempt in 2012 by overdosing on Benadryl and other sleeping medications. Risk: Does risk to harm exist?: yes. Access to means: Yes. Types of Means: Medication. Counseling provided: No Risk: Moderate Risk Duty to warn indicated: No Asssessment/Mental Status Appearance: Unremarkable Attitude: Cooperative and Friendly Behavior: Unremarkable Speech: Soft Affect: Cogruent with mood Mood: Depressed Thought process: Goal directed and Poverty of content Hallucinations: yes, Auditory (The client reports hearing voices telling her to harm herself.) Delusions: No Attention: Unremarkable Perception: Not impaired Orientation: Fully orientated Memory: Intact Insight: Poor Judgement: Poor Neurovegetative Symptoms Sleep: Decrease Appetitie: Increase Interests: Decrease Energy: Decrease Additional Issues: Assaultive/Threatening Behavior: No Medical Concerns: No Client engaged in active self harm w/weapon: No Threatening to run away: No Child reported abuse/neglect: No Voluntarily presenting for services: Yes Domestic violence is a concern: No Extreme Psychosis or extreme behavior is present: No Impression The client is a 49 year old biological female who resides with her in [facility]. The client presents to [facility] ED for SI with intent and plan. The client is seen in a purple t-shirt and booker leggings laying down in her hospital bed with a disheveled appearance. Affect is appears to be congruent with mood. Speech is in normal soft. Client is friendly and cooperative; they report their mood as depressed. Thought process appears to be a poverty of content and goal directed. The client self reports to have auditory hallucinations of voices in her head telling her to harm herself. The client denied visual hallucinations. There are no delusions observed by this clinician. Cognitive assessment reveals orientation to person and place and time. The client reports decrease in sleep, energy, interests and an increase in appetite. The client reports feeling really depressed lately and was really upset today. The client states she spoke to her mother today on the phone and wanted to be home with her, but her mother told her that she does not want her there. The client reports her mother is very sick. The client also states her daughter does not want to see her or have anything to with her. The client states she is currently on oxygen during this assessment due to her having a hard time breathing. The client reports SI with a plan of overdosing on melatonin and Benadryl or inhaling carbon monoxide. The client rates her intent as a 10 out of 10. The client reports a past attempt on her life in 2012 by overdosing on Benadryl and other sleeping medications. The client denied HI and NSSI with no intent or plan. The client scored a 27/27 on the PHQ-9 and a 6/6 on the CSSRS. The client was agreeable to seek voluntary inpatient treatment for her mental health at this time. Plan/Disposition Recommended Disposition: Hospitalization facilities contacted. Plan: The client will remain at [facility] ED until placement is secured for voluntary inpatient treatment. The client will be seen once daily by emergency services until placed. Reports/communication Outcome discussed with: ED/Personnel
--- NOTE | 2025-08-07 07:02 | ED.PSYCHBOAR ---
Date of service: 08/07/25 Time of Service: 07:02 Psychiatric Border Handoff Update Brief Story: In brief, this is a 49-year-old female patient with a past medical history significant for depression, COPD, ERIK, boarding in our emergency department voluntarily for suicidal ideation with a plan to overdose. Prior to my taking over their care, the patient was medically cleared, and has been resting comfortably. They have met with the social media executive and we are awaiting final dispo. They have not required any additional medications for restraint or sedation. They have been admitted to ED psych observation. The patient was signed out to the oncoming provider prior to final disposition. Remained hemodynamically appropriate, calm, cooperative, and comfortable while under my care. Mel Mallory MD Status: voluntary Able to leave: would need physician/ELISHA and crisis evaluation prior to leaving Behavioral Concerns: None Potential Disposition: Inpatient psychiatric care Barriers to Disposition: Awaiting acceptance/placement Medical Concerns: ERIK requiring O2 at night while sleeping Mediation Reconciliation performed: Yes Code Status ordered: Yes Diet ordered: Yes Discharge Plan Discharge Details Chief Complaint: PsychEval Clinical Impression: Suicide ideation Primary Care Provider: BRYCE SMITH ED Provider: Mel Mallory Home Meds and New Rx's Prescriptions: No Action (DME) Oxygen Tank See Rx Instructions .Route Qty: 1 0RF Rx Instructions: 2LPM with exertion pregabalin [Lyrica] 50 mg capsule 50 mg PO BID Patient Comments: prescribed by Bryce Smith PCP ipratropium-albuterol 0.5 mg-3 mg(2.5 mg base)/3 mL solution for nebulization 3 ml UPD Q4H PRN PRN (Reason: shortness of breath or wheezing) Qty: 540 12RF Jardiance 25 mg tablet 25 mg PO DAILY Dulera 200-5 mcg/actuation HFA aerosol inhaler 2 puff inhalation BID Qty: 13 12RF Rx Instructions: Rinse mouth after use Spiriva Respimat 2.5 mcg/actuation mist 2 puff inhalation DAILY Qty: 4 12RF buspirone 30 mg tablet 60 mg PO BID Patient Comments: reports she is taking 60mg BID lisinopril 20 mg Tablet 20 mg PO DAILY divalproex [Depakote] 500 mg Tablet,Delayed Release (Dr/Ec) 1,000 mg PO HS risperidone [Risperdal] 2 mg Tablet 6 mg PO HS spironolactone 25 mg Tablet 25 mg PO DAILY Qty: 30 0RF melatonin 10 mg capsule 10 mg PO HS PRN PRN prazosin 5 mg capsule 10 mg PO QHS Patient Comments: TAKE TWO CAPSULES BY MOUTH EVERY EVENING AT BEDTIME prednisone 50 mg tablet 50 mg PO DAILY Qty: 5 0RF ibuprofen 800 mg tablet 800 mg PO BID PRN PRN Patient Comments: TAKE ONE TABLET BY MOUTH TWICE A DAY NEEDED furosemide [Lasix] 20 mg tablet 20 mg PO DAILY Qty: 14 0RF albuterol sulfate 2.5 mg /3 mL (0.083 %) solution for nebulization 2.5 mg inhalation Q4H PRN PRN albuterol sulfate 90 mcg/actuation HFA aerosol inhaler 2 puff inhalation Q6H PRN PRN (Reason: shortness of breath or wheezing) lorazepam 0.5 mg tablet 0.5 mg PO DAILY PRN Patient Comments: TAKE ONE TABLET BY MOUTH EVERY DAY NEEDED FOR SEVERE ANXIETY sertraline 100 mg tablet 150 mg PO DAILY Patient Comments: TAKE ONE AND ONE-HALF TABLETS BY MOUTH EVERY DAY atomoxetine 18 mg capsule 18 mg PO DAILY Patient Comments: TAKE ONE CAPSULE BY MOUTH EVERY MORNING, TAKE WITH 80MG FOR TOTAL OF 98MG DAILY atomoxetine 80 mg capsule 80 mg PO DAILY Patient Comments: TAKE ONE CAPSULE BY MOUTH EVERY DAY WITH 18MG TO MAKE A TOTAL OF 98MG DAILY (DME) blood-glucose meter [[employer] Verio Flex meter] [facility] [place] MISCELLANEOUS Patient Comments: USE DIRECTED DAILY (DME) [employer] Verio test strips Strip MISCELLANEOUS Patient Comments: USE ONE STRIP VIA METER EVERY DAY (DME) nebulizer and compressor [Comp-Air Nebulizer Compressor] Device MISCELLANEOUS Patient Comments: USE DIRECTED Januvia 100 mg tablet 100 mg PO DAILY Patient Comments: TAKE ONE TABLET BY MOUTH EVERY DAY DIRECTED FOR DIABETES (DME) lancets [[employer] Delica Plus Lancet] 33 gauge [facility] MISCELLANEOUS Patient Comments: USE ONCE EVERY DAY azithromycin 250 mg tablet 250 mg PO DAILY cyclobenzaprine 5 mg tablet 5 mg PO DAILY
--- NOTE | 2025-08-07 07:58 | PDOC.CMSAFE ---
Date of service: 08/07/25 Time of Service: 07:59 Care Management Safety Plan Status Status: Voluntary Reason for Wait Reason for Wait: Inpatient Admission Safety Plan Safety Plan: VOLUNTARY FOR INPATIENT PSYCHIATRIC STABILIZATION.? Patient is appropriate in all interactions since arriving at [facility]; Pt has demonstrated appropriate coping and communication skills and has articulated needs, concerns and is fully engaged during staff interactions. Safety plan has been established with patient, and care team, to adhere to patient goals, identify restrictions based on behavioral status, address nutrition, and determine allowed personal belongings, tools for hygiene and personal care. Determine level of activity including ambulation, level of supervision, visitors, and determine privileges based on behaviors and level of engagement by pt. SAFETY PLAN: 1. Will remain on suicide precautions, in paper clothes 2. Will remain in Zone B under direct supervision of one-on-one staff at all times provided by [employer]; MARLEE, HEADER MACHINE OPERATOR instructor programmable controllers. 3. May have paper cups, plates, finger foods as well as a cardboard spoon with which to eat meals. 4. Follow [facility] Management of the Admitted Behavioral Health Patient policy. 5. Shower available in Zone B without restriction. 6. Personal belongings-soft items permitted at RN discretion. 7. Visitors- 8. Activities: soft cart items approved per RN discretion. 9.? Bathroom available in Zone B without restriction. 10. Phone: incoming/outgoing calls limited to [facility] cordless phone at RN discretion. Due to VOLUNTARY status, if patient wishes to leave [facility], staff will contact [facility] Crisis Screener ([phone]) and Development Disability Specialist ([phone]) as soon as possible. In the event of elopement, notify [facility] Police ([phone]). Patient is currently voluntarily at [facility] and seeking inpatient admission when a bed becomes available. [facility] Frontline Slab Lifting Engineer will continue seeking placement. Please contact the Development Disability Specialist ([phone]) and [facility] Slab Lifting Engineer ([phone]) for any needed changes in the Safety Plan. Safety plan has been provided to interdepartmental care team.
[2025-08-07] MEDS: Pregabalin 50 MG CAP PO ×2 (08:36→21:41)
[2025-08-07] MEDS: Sertraline 100 MG TAB 150 MG PO (08:36)
[2025-08-07] MEDS: SITagliptin 100 MG TAB PO (11:10)
[2025-08-07] MEDS: Empaglifozin 25 MG TAB PO (11:10)
[2025-08-07] MEDS: busPIRone 15 MG TAB 60 MG PO ×2 (11:12→21:43)
[2025-08-07] MEDS: Lisinopril 20 MG TAB PO (11:12)
[2025-08-07] MEDS: Mometasone 220 MCG 14 DOSE INHALER 2 PUFF IH ×2 (12:00→21:46)
[2025-08-07] MEDS: Tiotropium Bromide-Respimat 10 PUFF INH 2 PUFF IH (12:00)
[2025-08-07] MEDS: LORazepam 0.5 MG TAB PO ×2 (13:08→17:27)
[2025-08-07] MEDS: Nystatin POWDER 15 GM JAR TP (18:20)
[2025-08-07] MEDS: risperiDONE 1 MG TAB 6 MG PO (21:41)
[2025-08-07] MEDS: Prazosin 5 MG CAP 10 MG PO (21:41)
[2025-08-07] MEDS: Melatonin 3 MG TAB 10 MG PO (21:44)
[2025-08-07] MEDS: Divalproex 500 MG TABEC 1000 MG PO (22:17)
[2025-08-08] VITALS (34 sets, daily range): O2SAT 89–96
[2025-08-08] MEDS: SITagliptin 100 MG TAB PO (08:05)
[2025-08-08] MEDS: Empaglifozin 25 MG TAB PO (08:05)
[2025-08-08] MEDS: Tiotropium Bromide-Respimat 10 PUFF INH 2 PUFF IH (08:06)
[2025-08-08] MEDS: Pregabalin 50 MG CAP PO ×3 (08:06→20:21)
[2025-08-08] MEDS: Sertraline 100 MG TAB 150 MG PO (08:06)
[2025-08-08] MEDS: busPIRone 15 MG TAB 60 MG PO ×2 (08:06→20:20)
[2025-08-08] MEDS: Mometasone 220 MCG 14 DOSE INHALER 2 PUFF IH ×2 (08:07→20:23)
[2025-08-08] MEDS: Lisinopril 20 MG TAB PO (08:19)
[2025-08-08] MEDS: LORazepam 0.5 MG TAB PO ×2 (13:17→20:20)
[2025-08-08] MEDS: Ibuprofen 600 MG TAB PO (15:32)
--- NOTE | 2025-08-08 15:35 | PDOC.CMSAFE ---
Date of service: 08/08/25 Time of Service: 15:35 Care Management Safety Plan Status Status: Voluntary Reason for Wait Reason for Wait: Inpatient Admission Safety Plan Safety Plan: VOLUNTARY FOR INPATIENT PSYCHIATRIC STABILIZATION.? Patient is appropriate in all interactions since arriving at [facility]; Pt has demonstrated appropriate coping and communication skills and has articulated needs, concerns and is fully engaged during staff interactions. Safety plan has been established with patient, and care team, to adhere to patient goals, identify restrictions based on behavioral status, address nutrition, and determine allowed personal belongings, tools for hygiene and personal care. Determine level of activity including ambulation, level of supervision, visitors, and determine privileges based on behaviors and level of engagement by pt. SAFETY PLAN: 1. Will remain on suicide precautions, in paper clothes 2. Will remain in Zone B under direct supervision of one-on-one staff at all times provided by [employer]; MARLEE, BIOMEDICAL REPAIR TECHNICIAN stereo plotter operator. 3. May have paper cups, plates, finger foods as well as a cardboard spoon with which to eat meals. 4. Follow [facility] Management of the Admitted Behavioral Health Patient policy. 5. Shower available in Zone B without restriction. 6. Personal belongings-soft items permitted at RN discretion. 7. Visitors- supportive visitors, at RN discretion. 8. Activities: soft cart items approved per RN discretion. 9.? Bathroom available in Zone B without restriction. 10. Phone: incoming/outgoing calls limited to [facility] cordless phone at RN discretion. Due to VOLUNTARY status, if patient wishes to leave [facility], staff will contact [facility] Crisis Screener ([phone]) and Pen Maker ([phone]) as soon as possible. In the event of elopement, notify [facility] Police ([phone]). Patient is currently voluntarily at [facility] and seeking inpatient admission when a bed becomes available. [facility] Frontline Can Filler will continue seeking placement. Please contact the Pen Maker ([phone]) and [facility] Can Filler ([phone]) for any needed changes in the Safety Plan. Safety plan has been provided to interdepartmental care team.
--- NOTE | 2025-08-08 16:17 | PDOC.CMPRO ---
Date of service: 08/08/25 Time of Service: 16:17 Care Management Progress Note Progress Note Text Progress Note Text: CM spoke to [facility] and ED ENTREPRENEURIAL FINANCE PROFESSOR regarding Cecilia's plan of care. Per report, Cecilia will remain in zone B during the day, but will go to an ED room at night in order to have access to nocturnal O2. [facility] provided that information to Raj, who is reviewing the referral for admission. Cecilia is voluntary, seeking inpatient psychiatric care. Referrals have been sent to all facilities by [facility]; safety plan in place while waiting for placement. CM will continue to follow. Social Determinants of Health Screening Will the Patient Participate in the Screening?: Declined to provide
--- NOTE | 2025-08-08 16:34 | ED.PROG1_ITS ---
Date of service: 08/08/25 Time of Service: 16:34 Psychiatric Border Handoff Update Brief Story: Patient is depressed but remains stable. No interventions have been needed. Still pending placement. Patient has not needed oxygen supplementation or support. She is in good spirits at this time. Status: voluntary Able to leave: yes Behavioral Concerns: None none yet Potential Disposition: None yet determined Barriers to Disposition: None Medical Concerns: Patient remains medically stable with no oxygenation demands. Mediation Reconciliation performed: Yes Code Status ordered: Yes Diet ordered: Yes Discharge Plan Discharge Details Chief Complaint: PsychEval Clinical Impression: Suicide ideation Primary Care Provider: BRYCE SMITH ED Provider: Matty Palacio Home Meds and New Rx's Prescriptions: No Action (DME) Oxygen Tank See Rx Instructions .Route Qty: 1 0RF Rx Instructions: 2LPM with exertion pregabalin [Lyrica] 50 mg capsule 50 mg PO BID Patient Comments: prescribed by Bryce Smith PCP ipratropium-albuterol 0.5 mg-3 mg(2.5 mg base)/3 mL solution for nebulization 3 ml UPD Q4H PRN PRN (Reason: shortness of breath or wheezing) Qty: 540 12RF Jardiance 25 mg tablet 25 mg PO DAILY Dulera 200-5 mcg/actuation HFA aerosol inhaler 2 puff inhalation BID Qty: 13 12RF Rx Instructions: Rinse mouth after use Spiriva Respimat 2.5 mcg/actuation mist 2 puff inhalation DAILY Qty: 4 12RF buspirone 30 mg tablet 60 mg PO BID Patient Comments: reports she is taking 60mg BID lisinopril 20 mg Tablet 20 mg PO DAILY divalproex [Depakote] 500 mg Tablet,Delayed Release (Dr/Ec) 1,000 mg PO HS risperidone [Risperdal] 2 mg Tablet 6 mg PO HS spironolactone 25 mg Tablet 25 mg PO DAILY Qty: 30 0RF melatonin 10 mg capsule 10 mg PO HS PRN PRN prazosin 5 mg capsule 10 mg PO QHS Patient Comments: TAKE TWO CAPSULES BY MOUTH EVERY EVENING AT BEDTIME prednisone 50 mg tablet 50 mg PO DAILY Qty: 5 0RF ibuprofen 800 mg tablet 800 mg PO BID PRN PRN Patient Comments: TAKE ONE TABLET BY MOUTH TWICE A DAY NEEDED furosemide [Lasix] 20 mg tablet 20 mg PO DAILY Qty: 14 0RF albuterol sulfate 2.5 mg /3 mL (0.083 %) solution for nebulization 2.5 mg inhalation Q4H PRN PRN albuterol sulfate 90 mcg/actuation HFA aerosol inhaler 2 puff inhalation Q6H PRN PRN (Reason: shortness of breath or wheezing) lorazepam 0.5 mg tablet 0.5 mg PO DAILY PRN Patient Comments: TAKE ONE TABLET BY MOUTH EVERY DAY NEEDED FOR SEVERE ANXIETY sertraline 100 mg tablet 150 mg PO DAILY Patient Comments: TAKE ONE AND ONE-HALF TABLETS BY MOUTH EVERY DAY atomoxetine 18 mg capsule 18 mg PO DAILY Patient Comments: TAKE ONE CAPSULE BY MOUTH EVERY MORNING, TAKE WITH 80MG FOR TOTAL OF 98MG DAILY atomoxetine 80 mg capsule 80 mg PO DAILY Patient Comments: TAKE ONE CAPSULE BY MOUTH EVERY DAY WITH 18MG TO MAKE A TOTAL OF 98MG DAILY (DME) blood-glucose meter [[email or web address] Verio Flex meter] [facility] MISCELLANEOUS Patient Comments: USE DIRECTED DAILY (DME) OneTouch Verio test strips Strip MISCELLANEOUS Patient Comments: USE ONE STRIP VIA METER EVERY DAY (DME) nebulizer and compressor [Comp-Air Nebulizer Compressor] Device MISCELLANEOUS Patient Comments: USE DIRECTED Januvia 100 mg tablet 100 mg PO DAILY Patient Comments: TAKE ONE TABLET BY MOUTH EVERY DAY DIRECTED FOR DIABETES (DME) lancets [CEDUTouch Delica Plus Lancet] 33 gauge [facility] MISCELLANEOUS Patient Comments: USE ONCE EVERY DAY azithromycin 250 mg tablet 250 mg PO DAILY cyclobenzaprine 5 mg tablet 5 mg PO DAILY
[2025-08-08] MEDS: Prazosin 5 MG CAP 10 MG PO (20:20)
[2025-08-08] MEDS: Divalproex 500 MG TABEC 1000 MG PO (20:21)
[2025-08-08] MEDS: risperiDONE 1 MG TAB 6 MG PO (20:22)
[2025-08-08] MEDS: Melatonin 3 MG TAB 9 MG PO (20:22)
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
[2025-08-09] MEDS: LORazepam 0.5 MG TAB PO ×2 (01:57→16:10)
--- NOTE | 2025-08-09 07:34 | NUR.NOTE ---
Nursing Note: this RN woke patient PT pleasant and used bathroom and was walked back to [facility] pt resting at this time
--- NOTE | 2025-08-09 07:41 | ED.PROG1_ITS ---
Date of service: 08/09/25 Time of Service: 07:42 Psychiatric Border Handoff Update Brief Story: I received signout on this 49-year-old patient with suicidal ideation. No active behavioral issues last shift. Home medications ordered. Able to leave: would need physician/ELISHA and crisis evaluation prior to leaving Behavioral Concerns: None Mediation Reconciliation performed: Yes Code Status ordered: Yes Diet ordered: Yes Future to do Items: Follow-up [facility]. 1:08 PM [facility]. She reported that the patient will remain voluntary. 3:45 PM No active behavioral issues my shift. Patient signed out to Dr. Mallory. Discharge Plan Discharge Details Chief Complaint: PsychEval Clinical Impression: Suicide ideation Primary Care Provider: BRYCE SMITH ED Provider: Patel Mckinney Home Meds and New Rx's Prescriptions: No Action (DME) Oxygen Tank See Rx Instructions .Route Qty: 1 0RF Rx Instructions: 2LPM with exertion pregabalin [Lyrica] 50 mg capsule 50 mg PO BID Patient Comments: prescribed by Bryce Smith, PCP ipratropium-albuterol 0.5 mg-3 mg(2.5 mg base)/3 mL solution for nebulization 3 ml UPD Q4H PRN PRN (Reason: shortness of breath or wheezing) Qty: 540 12RF Jardiance 25 mg tablet 25 mg PO DAILY Dulera 200-5 mcg/actuation HFA aerosol inhaler 2 puff inhalation BID Qty: 13 12RF Rx Instructions: Rinse mouth after use Spiriva Respimat 2.5 mcg/actuation mist 2 puff inhalation DAILY Qty: 4 12RF buspirone 30 mg tablet 60 mg PO BID Patient Comments: reports she is taking 60mg BID lisinopril 20 mg Tablet 20 mg PO DAILY divalproex [Depakote] 500 mg Tablet,Delayed Release (Dr/Ec) 1,000 mg PO HS risperidone [Risperdal] 2 mg Tablet 6 mg PO HS spironolactone 25 mg Tablet 25 mg PO DAILY Qty: 30 0RF melatonin 10 mg capsule 10 mg PO HS PRN PRN prazosin 5 mg capsule 10 mg PO QHS Patient Comments: TAKE TWO CAPSULES BY MOUTH EVERY EVENING AT BEDTIME prednisone 50 mg tablet 50 mg PO DAILY Qty: 5 0RF ibuprofen 800 mg tablet 800 mg PO BID PRN PRN Patient Comments: TAKE ONE TABLET BY MOUTH TWICE A DAY NEEDED furosemide [Lasix] 20 mg tablet 20 mg PO DAILY Qty: 14 0RF albuterol sulfate 2.5 mg /3 mL (0.083 %) solution for nebulization 2.5 mg inhalation Q4H PRN PRN albuterol sulfate 90 mcg/actuation HFA aerosol inhaler 2 puff inhalation Q6H PRN PRN (Reason: shortness of breath or wheezing) lorazepam 0.5 mg tablet 0.5 mg PO DAILY PRN Patient Comments: TAKE ONE TABLET BY MOUTH EVERY DAY NEEDED FOR SEVERE ANXIETY sertraline 100 mg tablet 150 mg PO DAILY Patient Comments: TAKE ONE AND ONE-HALF TABLETS BY MOUTH EVERY DAY atomoxetine 18 mg capsule 18 mg PO DAILY Patient Comments: TAKE ONE CAPSULE BY MOUTH EVERY MORNING, TAKE WITH 80MG FOR TOTAL OF 98MG DAILY atomoxetine 80 mg capsule 80 mg PO DAILY Patient Comments: TAKE ONE CAPSULE BY MOUTH EVERY DAY WITH 18MG TO MAKE A TOTAL OF 98MG DAILY (DME) blood-glucose meter [GinxTouch Verio Flex meter] [facility] MISCELLANEOUS Patient Comments: USE DIRECTED DAILY (DME) OneTouch Verio test strips Strip MISCELLANEOUS Patient Comments: USE ONE STRIP VIA METER EVERY DAY (DME) nebulizer and compressor [Comp-Air Nebulizer Compressor] Device MISCELLANEOUS Patient Comments: USE DIRECTED Januvia 100 mg tablet 100 mg PO DAILY Patient Comments: TAKE ONE TABLET BY MOUTH EVERY DAY DIRECTED FOR DIABETES (DME) lancets [OneTouch Delica Plus Lancet] 33 gauge [facility] MISCELLANEOUS Patient Comments: USE ONCE EVERY DAY azithromycin 250 mg tablet 250 mg PO DAILY cyclobenzaprine 5 mg tablet 5 mg PO DAILY
--- NOTE | 2025-08-09 08:09 | CMPROGNOTE_ITS ---
Date of service: 08/09/25 Time of Service: 12:51 Care Management Progress Note Progress Note Text Progress Note Text: CM met with Megha from [facility] surrounding Cecilia's plan of care. Per report, Cecilia will continue to remain in zone B during the day, but will go to an ED room at night in order to have access to nocturnal O2. [facility] reports Cecilia will likely require a medical hospital for inpatient psychiatric treatment d/t O2 requirement; Raj continues to review the referral and [facility] will follow up with their facility. Cecilia is voluntary and agreeable to treatment. Continues to endorse SI 10/10; [facility] report they question the validity of her access and means. Recommended carebed if Raj declines. CM will continue to follow. Social Determinants of Health Screening Will the Patient Participate in the Screening?: Declined to provide
--- NOTE | 2025-08-09 08:09 | CMSP_ITS ---
Date of service: 08/09/25 Time of Service: 08:30 Care Management Safety Plan Status Status: Voluntary Reason for Wait Reason for Wait: Inpatient Admission Safety Plan Safety Plan: VOLUNTARY FOR INPATIENT PSYCHIATRIC STABILIZATION.? Patient is appropriate in all interactions since arriving at [facility]; Pt has demonstrated appropriate coping and communication skills and has articulated needs, concerns and is fully engaged during staff interactions. Safety plan has been established with patient, and care team, to adhere to patient goals, identify restrictions based on behavioral status, address nutrition, and determine allowed personal belongings, tools for hygiene and personal care. Determine level of activity including ambulation, level of supervision, visitors, and determine privileges based on behaviors and level of engagement by pt. SAFETY PLAN: 1. Will remain on suicide precautions, in paper clothes 2. Will remain in Zone B under direct supervision of one-on-one staff at all times provided by [employer]; MARLEE, SCIENTIFIC ASSOCIATE procurement forester. 3. May have paper cups, plates, finger foods as well as a cardboard spoon with which to eat meals. 4. Follow [facility] Management of the Admitted Behavioral Health Patient policy. 5. Shower available in Zone B without restriction. 6. Personal belongings-soft items permitted at RN discretion. 7. Visitors- supportive visitors, at RN discretion. 8. Activities: soft cart items approved per RN discretion. 9.? Bathroom available in Zone B without restriction. 10. Phone: incoming/outgoing calls limited to [facility] cordless phone at RN discretion. Due to VOLUNTARY status, if patient wishes to leave [facility], staff will contact [facility] Crisis Screener ([phone]) and Development Writer ([phone]) as soon as possible. In the event of elopement, notify [facility] Police ([phone]). Patient is currently voluntarily at [facility] and seeking inpatient admission when a bed becomes available. [facility] Frontline Supervisor Volunteer Services will continue seeking placement. Please contact the Development Writer ([phone]) and [facility] Supervisor Volunteer Services ([phone]) for any needed changes in the Safety Plan. Safety plan has been provided to interdepartmental care team.
--- NOTE | 2025-08-09 08:09 | PDOC.CMPRO ---
Date of service: 08/09/25 Time of Service: 12:51 Care Management Progress Note Progress Note Text Progress Note Text: CM met with Megha from [facility] surrounding Cecilia's plan of care. Per report, Cecilia will continue to remain in zone B during the day, but will go to an ED room at night in order to have access to nocturnal O2. [facility] reports Cecilia will likely require a medical hospital for inpatient psychiatric treatment d/t O2 requirement; Raj continues to review the referral and [facility] will follow up with their facility. Cecilia is voluntary and agreeable to treatment. Continues to endorse SI 10/10; [facility] report they question the validity of her access and means. Recommended carebed if Raj declines. CM will continue to follow. Social Determinants of Health Screening Will the Patient Participate in the Screening?: Declined to provide
--- NOTE | 2025-08-09 08:09 | PDOC.CMSAFE ---
Date of service: 08/09/25 Time of Service: 08:30 Care Management Safety Plan Status Status: Voluntary Reason for Wait Reason for Wait: Inpatient Admission Safety Plan Safety Plan: VOLUNTARY FOR INPATIENT PSYCHIATRIC STABILIZATION.? Patient is appropriate in all interactions since arriving at [facility]; Pt has demonstrated appropriate coping and communication skills and has articulated needs, concerns and is fully engaged during staff interactions. Safety plan has been established with patient, and care team, to adhere to patient goals, identify restrictions based on behavioral status, address nutrition, and determine allowed personal belongings, tools for hygiene and personal care. Determine level of activity including ambulation, level of supervision, visitors, and determine privileges based on behaviors and level of engagement by pt. SAFETY PLAN: 1. Will remain on suicide precautions, in paper clothes 2. Will remain in Zone B under direct supervision of one-on-one staff at all times provided by [employer]; MARLEE, [employer]OR[employer] MOTHER merchandise processor. 3. May have paper cups, plates, finger foods as well as a cardboard spoon with which to eat meals. 4. Follow [facility] Management of the Admitted Behavioral Health Patient policy. 5. Shower available in Zone B without restriction. 6. Personal belongings-soft items permitted at RN discretion. 7. Visitors- supportive visitors, at RN discretion. 8. Activities: soft cart items approved per RN discretion. 9.? Bathroom available in Zone B without restriction. 10. Phone: incoming/outgoing calls limited to [facility] cordless phone at RN discretion. Due to VOLUNTARY status, if patient wishes to leave [facility], staff will contact [facility] Crisis Screener ([phone]) and Cnc Lathe Machine Operator ([phone]) as soon as possible. In the event of elopement, notify [facility] Police ([phone]). Patient is currently voluntarily at [facility] and seeking inpatient admission when a bed becomes available. [facility] Frontline Vehicle Upholsterer will continue seeking placement. Please contact the Cnc Lathe Machine Operator ([phone]) and [facility] Vehicle Upholsterer ([phone]) for any needed changes in the Safety Plan. Safety plan has been provided to interdepartmental care team.
[2025-08-09] MEDS: SITagliptin 100 MG TAB PO (09:10)
[2025-08-09] MEDS: busPIRone 15 MG TAB 60 MG PO ×2 (09:10→19:29)
[2025-08-09] MEDS: Lisinopril 20 MG TAB PO (09:11)
[2025-08-09] MEDS: Sertraline 100 MG TAB 150 MG PO (09:12)
[2025-08-09] MEDS: Pregabalin 50 MG CAP PO ×2 (09:12→19:30)
[2025-08-09] MEDS: Empaglifozin 25 MG TAB PO (09:12)
[2025-08-09] MEDS: Tiotropium Bromide-Respimat 10 PUFF INH 2 PUFF IH (09:15)
[2025-08-09] MEDS: Mometasone 220 MCG 14 DOSE INHALER 2 PUFF IH ×2 (09:15→21:54)
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
[2025-08-09] MEDS: risperiDONE 1 MG TAB 6 MG PO (19:29)
[2025-08-09] MEDS: Melatonin 3 MG TAB 9 MG PO (19:30)
[2025-08-09] MEDS: Prazosin 5 MG CAP 10 MG PO (19:30)
[2025-08-09] MEDS: Divalproex 500 MG TABEC 1000 MG PO (19:30)
[2025-08-09] MEDS: Nystatin POWDER 15 GM JAR TP (21:55)
[2025-08-10 07:32] VITALS: BP 159/88; PULSE 87; TEMP 36.9; O2SAT 98
[2025-08-10] MEDS: Lisinopril 20 MG TAB PO (08:10)
[2025-08-10] MEDS: SITagliptin 100 MG TAB PO (08:10)
[2025-08-10] MEDS: Sertraline 100 MG TAB 150 MG PO (08:11)
[2025-08-10] MEDS: Pregabalin 50 MG CAP PO (08:13)
[2025-08-10] MEDS: Empaglifozin 25 MG TAB PO (08:13)
[2025-08-10] MEDS: busPIRone 15 MG TAB 60 MG PO (08:14)
[2025-08-10] MEDS: Mometasone 220 MCG 14 DOSE INHALER 2 PUFF IH (08:26)
[2025-08-10] MEDS: Tiotropium Bromide-Respimat 10 PUFF INH 2 PUFF IH (08:27)
[2025-08-10 09:27] VITALS: PULSE 71; O2SAT 94
[2025-08-10 10:41] LABS: Cannabinoids THC Positive (Negative); METHADONE URINE SCREEN Negative (Negative)
[2025-08-10] MEDS: Nicotine 2 MG GUM CH (13:16)
[2025-08-10] MEDS: LORazepam 0.5 MG TAB PO (13:37)
[2025-08-10 15:21] VITALS: RESP 16; O2SAT 99
--- NOTE | 2025-08-10 16:26 | ED.PSYCHBOAR ---
Date of service: 08/10/25 Time of Service: 16:26 Psychiatric Border Handoff Update Brief Story: Patient has a history of depression and suicidality, however over the last 24 to 48 hours she has been doing much better, she is playing cards, interactive, and excited about future opportunities. She and her care team are currently coordinating with one of her friends from [place] to potentially create for her place to state that is not at home as she feels quite concerned about going home. Currently working with the care team, mental health advocates, and this friend to create a safe discharge opportunity for her. Status: voluntary Able to leave: yes Behavioral Concerns: None Potential Disposition: To a safe home disposition with her friend from [place]. Barriers to Disposition: Acceptance by friend from [place]. Medical Concerns: Transient hypoxemia at night requiring intermittent oxygen. Mediation Reconciliation performed: Yes Code Status ordered: Yes Diet ordered: Yes Discharge Plan Discharge Details Chief Complaint: PsychEval Clinical Impression: Suicide ideation Primary Care Provider: BRYCE SMITH ED Provider: Matty Palacio Home Meds and New Rx's Prescriptions: No Action (DME) Oxygen Tank See Rx Instructions .Route Qty: 1 0RF Rx Instructions: 2LPM with exertion pregabalin [Lyrica] 50 mg capsule 50 mg PO BID Patient Comments: prescribed by Bryce Smith, PCP ipratropium-albuterol 0.5 mg-3 mg(2.5 mg base)/3 mL solution for nebulization 3 ml UPD Q4H PRN PRN (Reason: shortness of breath or wheezing) Qty: 540 12RF Jardiance 25 mg tablet 25 mg PO DAILY Dulera 200-5 mcg/actuation HFA aerosol inhaler 2 puff inhalation BID Qty: 13 12RF Rx Instructions: Rinse mouth after use Spiriva Respimat 2.5 mcg/actuation mist 2 puff inhalation DAILY Qty: 4 12RF buspirone 30 mg tablet 60 mg PO BID Patient Comments: reports she is taking 60mg BID lisinopril 20 mg Tablet 20 mg PO DAILY divalproex [Depakote] 500 mg Tablet,Delayed Release (Dr/Ec) 1,000 mg PO HS risperidone [Risperdal] 2 mg Tablet 6 mg PO HS spironolactone 25 mg Tablet 25 mg PO DAILY Qty: 30 0RF melatonin 10 mg capsule 10 mg PO HS PRN PRN prazosin 5 mg capsule 10 mg PO QHS Patient Comments: TAKE TWO CAPSULES BY MOUTH EVERY EVENING AT BEDTIME prednisone 50 mg tablet 50 mg PO DAILY Qty: 5 0RF ibuprofen 800 mg tablet 800 mg PO BID PRN PRN Patient Comments: TAKE ONE TABLET BY MOUTH TWICE A DAY NEEDED furosemide [Lasix] 20 mg tablet 20 mg PO DAILY Qty: 14 0RF albuterol sulfate 2.5 mg /3 mL (0.083 %) solution for nebulization 2.5 mg inhalation Q4H PRN PRN albuterol sulfate 90 mcg/actuation HFA aerosol inhaler 2 puff inhalation Q6H PRN PRN (Reason: shortness of breath or wheezing) lorazepam 0.5 mg tablet 0.5 mg PO DAILY PRN Patient Comments: TAKE ONE TABLET BY MOUTH EVERY DAY NEEDED FOR SEVERE ANXIETY sertraline 100 mg tablet 150 mg PO DAILY Patient Comments: TAKE ONE AND ONE-HALF TABLETS BY MOUTH EVERY DAY atomoxetine 18 mg capsule 18 mg PO DAILY Patient Comments: TAKE ONE CAPSULE BY MOUTH EVERY MORNING, TAKE WITH 80MG FOR TOTAL OF 98MG DAILY atomoxetine 80 mg capsule 80 mg PO DAILY Patient Comments: TAKE ONE CAPSULE BY MOUTH EVERY DAY WITH 18MG TO MAKE A TOTAL OF 98MG DAILY (DME) blood-glucose meter [Synfora Verio Flex meter] [facility] [place] MISCELLANEOUS Patient Comments: USE DIRECTED DAILY (DME) OneTouch Verio test strips Strip MISCELLANEOUS Patient Comments: USE ONE STRIP VIA METER EVERY DAY (DME) nebulizer and compressor [Comp-Air Nebulizer Compressor] Device MISCELLANEOUS Patient Comments: USE DIRECTED Januvia 100 mg tablet 100 mg PO DAILY Patient Comments: TAKE ONE TABLET BY MOUTH EVERY DAY DIRECTED FOR DIABETES (DME) lancets [OneTouch Delica Plus Lancet] 33 gauge [facility] [place] MISCELLANEOUS Patient Comments: USE ONCE EVERY DAY azithromycin 250 mg tablet 250 mg PO DAILY cyclobenzaprine 5 mg tablet 5 mg PO DAILY
--- NOTE | 2025-08-10 17:05 | PDOC.CMPRO ---
Date of service: 08/10/25 Time of Service: 17:05 Care Management Progress Note Progress Note Text Progress Note Text: Ceiclia was standing at the window/door in zone B when CM visited with her today; she was bright and cheerful, this manual writer noted how she appeared to be in good spirits, and ED staff agreed. Cecilia met with MILLER Carbajal, today, and reported that she is no longer feeling acutely suicidal, and that she has been talking with a friend from [place] that she intends to visit soon. Cecilia reported that she feels safe to return to the community, but would prefer a supervised setting, where she feels safe. [employer] was engaged, but had few options which would not provide support. Raven coordinated a short stay at the [facility] facility, which is a crisis stabilization center in [place] (step down facility). Cecilia does have supplemental O2 that she has been wearing at [facility] overnight, although she reported to Raven that she does not use this as recommended at home, and is comfortable transitioning to the [facility] without all of her belongings. Cecilia's insurance case manager will coordinate obtaining Cecilia's belongings in the community. Cecilia will have mental health support and oversight while at the [facility], and will complete a safety plan prior to leaving the facility. CM discussed this with her primary RN and MD, who agree to this plan, as she no longer meets criteria for acute hospitalization. CM coordinated RCT transport to the [facility]. CM will continue to follow. Social Determinants of Health Screening Will the Patient Participate in the Screening?: Declined to provide
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
[2025-08-10 17:45] VITALS: BP 154/96; PULSE 96; RESP 20; O2SAT 94
== END 2025-08-10 17:45 | disposition other institution (70) ==
PROVIDERS: Student in an Organized Health Care Education/Training Program; Emergency Provider Emergency Medicine; PCP Nurse Practitioner Family
DX: F32.A Depression, unspecified (principal); R45.851 Suicidal ideations; Z59.41 Food insecurity
CPT/HCPCS: 00123; 80053; 80307; 81025; 93005; 96127; 99285; G0378; 81003; 81015; 85025; 93010; J3490

== ENCOUNTER 2025-08-21 01:29 | Emergency (ER) | payer MEDICARE, MEDICAID, SELFPAY ==
[2025-08-21] VITALS (50 sets, daily range): BP systolic 170–199; BP diastolic 61–78; PULSE 86–125; RESP 23–24; TEMP 37; O2SAT 78–98
--- NOTE | 2025-08-21 01:30 | W.ED.GENAD ---
Discharge Plan Discharge Details Chief Complaint: PsychEval Primary Care Provider: BRYCE SMITH ED Provider: Ronaldo Cole [place] Meds and New Rx's Prescriptions: No Action (DME) Oxygen Tank See Rx Instructions .Route Qty: 1 0RF Rx Instructions: 2LPM with exertion pregabalin [Lyrica] 50 mg capsule 50 mg PO BID Patient Comments: prescribed by Bryce Smith, PCP ipratropium-albuterol 0.5 mg-3 mg(2.5 mg base)/3 mL solution for nebulization 3 ml UPD Q4H PRN PRN (Reason: shortness of breath or wheezing) Qty: 540 12RF Jardiance 25 mg tablet 25 mg PO DAILY Dulera 200-5 mcg/actuation HFA aerosol inhaler 2 puff inhalation BID Qty: 13 12RF Rx Instructions: Rinse mouth after use Spiriva Respimat 2.5 mcg/actuation mist 2 puff inhalation DAILY Qty: 4 12RF buspirone 30 mg tablet 60 mg PO BID Patient Comments: reports she is taking 60mg BID lisinopril 20 mg Tablet 20 mg PO DAILY divalproex [Depakote] 500 mg Tablet,Delayed Release (Dr/Ec) 1,000 mg PO HS risperidone [Risperdal] 2 mg Tablet 6 mg PO HS spironolactone 25 mg Tablet 25 mg PO DAILY Qty: 30 0RF melatonin 10 mg capsule 10 mg PO HS PRN PRN prazosin 5 mg capsule 10 mg PO QHS Patient Comments: TAKE TWO CAPSULES BY MOUTH EVERY EVENING AT BEDTIME pregabalin 75 mg capsule 75 mg PO TID Patient Comments: TAKE ONE CAPSULE BY MOUTH THREE TIMES A DAY DIRECTED FOR CHRONIC NERVE PAIN ibuprofen 800 mg tablet 800 mg PO BID PRN PRN Patient Comments: TAKE ONE TABLET BY MOUTH TWICE A DAY NEEDED furosemide [Lasix] 20 mg tablet 20 mg PO DAILY Qty: 14 0RF albuterol sulfate 2.5 mg /3 mL (0.083 %) solution for nebulization 2.5 mg inhalation Q4H PRN PRN albuterol sulfate 90 mcg/actuation HFA aerosol inhaler 2 puff inhalation Q6H PRN PRN (Reason: shortness of breath or wheezing) lorazepam 0.5 mg tablet 0.5 mg PO DAILY PRN Patient Comments: TAKE ONE TABLET BY MOUTH EVERY DAY NEEDED FOR SEVERE ANXIETY sertraline 100 mg tablet 150 mg PO DAILY Patient Comments: TAKE ONE AND ONE-HALF TABLETS BY MOUTH EVERY DAY atomoxetine 18 mg capsule 18 mg PO DAILY Patient Comments: TAKE ONE CAPSULE BY MOUTH EVERY MORNING, TAKE WITH 80MG FOR TOTAL OF 98MG DAILY atomoxetine 80 mg capsule 80 mg PO DAILY Patient Comments: TAKE ONE CAPSULE BY MOUTH EVERY DAY WITH 18MG TO MAKE A TOTAL OF 98MG DAILY (DME) blood-glucose meter [OneTouch Verio Flex meter] [facility] MISCELLANEOUS Patient Comments: USE DIRECTED DAILY (DME) OneTouch Verio test strips Strip MISCELLANEOUS Patient Comments: USE ONE STRIP VIA METER EVERY DAY (DME) nebulizer and compressor [Comp-Air Nebulizer Compressor] Device MISCELLANEOUS Patient Comments: USE DIRECTED Januvia 100 mg tablet 100 mg PO DAILY Patient Comments: TAKE ONE TABLET BY MOUTH EVERY DAY DIRECTED FOR DIABETES (DME) lancets [OneTouch Delica Plus Lancet] 33 gauge [facility] MISCELLANEOUS Patient Comments: USE ONCE EVERY DAY cyclobenzaprine 5 mg tablet 5 mg PO DAILY HPI General Mode of arrival: EMS. Date/Time Provider Initiated Documentation: 08/21/25 01:30. Limitations to Documentation: no limitations. Information obtained by: patient, RN notes reviewed and old records reviewed. HPI Narrative: Patient presents to ED from home by ambulance with depressed mood and suicidal ideation. Patient was here in the ED for a few days from the to the . She was discharged with a safety plan and was supposed to stay with a friend in [place]. This fell through and she has actually been at home by herself. She has been having issues with her downstairs neighbor. She does not have follow-up with her therapist until this coming week. She has been depressed, not bathing, thinking of killing herself but not acting on this. Arrives here disheveled and crying. Denies any ingestions. Does report wheezing and some trouble breathing which is typical for her. Denies having any pain, fever, vomiting. Related Data Home Medications ?Medication ?Instructions ?Recorded ?Confirmed divalproex 500 mg tablet,delayed 1,000 mg PO HS 01/18/20 08/21/25 release (Depakote) lisinopril 20 mg tablet 20 mg PO DAILY 01/18/20 08/07/25 risperidone 2 mg tablet (Risperdal) 6 mg PO HS 01/18/20 08/21/25 ibuprofen 800 mg tablet 800 mg PO BID PRN PRN 11/20/22 08/21/25 Oxygen #1 ea 12/13/22 08/21/25 spironolactone 25 mg tablet 25 mg PO DAILY #30 tabs 05/06/23 08/21/25 furosemide 20 mg tablet (Lasix) 20 mg PO DAILY #14 tabs 06/13/23 08/21/25 empagliflozin 25 mg tablet 25 mg PO DAILY 12/15/23 08/07/25 (Jardiance) buspirone 30 mg tablet 60 mg PO BID 02/09/24 08/07/25 pregabalin 50 mg capsule (Lyrica) 50 mg PO BID 06/21/24 08/21/25 mometasone-formoterol HFA 200 2 puff inhalation BID #13 grams 08/04/24 08/21/25 mcg-5 mcg/actuation aerosol inhaler (Dulera) tiotropium bromide 2.5 2 puff inhalation DAILY #4 grams 08/04/24 08/21/25 mcg/actuation mist for inhalation (Spiriva Respimat) melatonin 10 mg capsule 10 mg PO HS PRN PRN 08/19/24 08/21/25 prazosin 5 mg capsule 10 mg PO QHS 08/20/24 08/07/25 ipratropium 0.5 mg-albuterol 3 mg 3 ml UPD Q4H PRN PRN shortness of 12/15/24 08/21/25 (2.5 mg base)/3 mL nebulization breath or wheezing #540 mL soln albuterol sulfate 2.5 mg/3 mL 2.5 mg inhalation Q4H PRN PRN 12/27/24 08/21/25 (0.083 %) solution for nebulization albuterol sulfate 90 mcg/actuation 2 puff inhalation Q6H PRN PRN 12/27/24 08/21/25 aerosol inhaler shortness of breath or wheezing atomoxetine 18 mg capsule 18 mg PO DAILY 01/16/25 08/07/25 atomoxetine 80 mg capsule 80 mg PO DAILY 01/16/25 08/07/25 lorazepam 0.5 mg tablet 0.5 mg PO DAILY PRN 01/16/25 08/07/25 sertraline 100 mg tablet 150 mg PO DAILY 01/16/25 08/07/25 blood sugar diagnostic ([facility] 03/01/25 08/21/25 Verio test strips) blood-glucose meter ([facility] 03/01/25 08/21/25 Verio Flex Meter) lancets 33 gauge ([facility] Delica 03/01/25 08/21/25 Plus Lancet) nebulizer and compressor (Comp-Air 03/01/25 08/21/25 Nebulizer Compressor) sitagliptin phosphate 100 mg 100 mg PO DAILY 03/01/25 08/21/25 tablet (Januvia) cyclobenzaprine 5 mg tablet 5 mg PO DAILY 08/07/25 08/21/25 pregabalin 75 mg capsule 75 mg PO TID 08/21/25 08/21/25 Previous Rx's ?Medication ?Instructions ?Recorded Oxygen #1 ea 12/13/22 spironolactone 25 mg tablet 25 mg PO DAILY #30 tabs 05/06/23 furosemide 20 mg tablet (Lasix) 20 mg PO DAILY #14 tabs 06/13/23 mometasone-formoterol HFA 200 2 puff inhalation BID #13 grams 08/04/24 mcg-5 mcg/actuation aerosol inhaler (Dulera) tiotropium bromide 2.5 2 puff inhalation DAILY #4 grams 08/04/24 mcg/actuation mist for inhalation (Spiriva Respimat) ipratropium 0.5 mg-albuterol 3 mg 3 ml UPD Q4H PRN PRN shortness of 12/15/24 (2.5 mg base)/3 mL nebulization breath or wheezing #540 mL soln Allergies Allergy/AdvReac Type Severity Reaction Status Date / Time bee pollen Allergy Hives Verified 08/07/25 06:01 hazelnut Allergy Hives Verified 08/07/25 06:01 peanut Allergy hallucinati Verified 08/07/25 06:01 on tree nut Allergy hallucinati Verified 08/07/25 06:01 on gabapentin AdvReac Severe vomiting Verified 08/07/25 06:01 varenicline (From Chantix) AdvReac Intermediate depression Verified 08/07/25 06:01 amoxicillin AdvReac Nausea Verified 08/07/25 06:01 fluoxetine (From Prozac) AdvReac Nausea Verified 08/07/25 06:01 trazodone AdvReac Weight gain Verified 08/07/25 06:01 abelox Allergy Hives Uncoded 08/07/25 06:01 General ZACK: 2 Exam Narrative Exam Narrative: Const: Obese female in NAD. VS per triage. HEENT: NC/AT. Normal facial exam. Neck: Supple. Trachea midline. Lungs: Normal respiratory effort. Lungs with diffuse wheezing but good air exchange. Cor: RRR without murmur. GI: Soft/ND/NT. Neuro: A+O x 3. Normal speech, mentation. Cranial nerves II - XII grossly intact. No gross motor or sensory deficit. Psych: Disheveled and unkempt, crying with depressed mood, SI with plan to overdose Medical Decision Making Patient presenting to ED after being discharged about a week ago on a safety plan that apparently fell through as she is not staying with a friend but was home alone. Has chronic medical problems including COPD with oxygen dependence at night. Does have some diffuse wheezing but decent air exchange. Will give a DuoNeb treatment and obtain chest x-ray, laboratory studies. Will need evaluation by [facility]. From a medical standpoint she does not appear to be off her baseline from my previous interactions and care for her. Patient's laboratory studies with a slightly elevated white count at 13.4. Hemoglobin and platelets are normal. Chemistries with some evidence of BREANNA with a BUN of 22 and a creatinine 1.6. Glucose high at 318. Normal anion gap. Liver function unremarkable. Urinalysis with moderate blood and 10-20 red cells which she has had intermittently on previous urinalysis. Will place an IV to give fluids. Patient has not really been eating and drinking over the last week. Denies vomiting, abdominal pain, diarrhea. Her alcohol, acetaminophen and aspirin levels are negative. Urine drug screen positive for THC only. Patient has been evaluated by mental health. She will remain in the ED for voluntary inpatient placement. Daily medications will be ordered once med reconciliation complete. Repeat BMP tomorrow morning to be sure kidney function improving. Medical Records Medical records reviewed: Yes I reviewed the patient's medical records. Imaging Data Radiologic Study: Attestation: I personally reviewed and interpreted this imaging study as follows: Imaging: X-Ray My impression: see [facility] Lab Data Lab results reviewed: Yes I reviewed the patient's lab results. Lab results narrative: see MDM Quality:SDOH Health Related Social Needs: Health related social needs food insecurity PFSH All Active Problems Suicide ideation (Acute) COPD exacerbation (Acute) Spinal stenosis (Acute) Migraine (Chronic) Nicotine dependence, cigarettes, uncomplicated (Acute) Vitamin D deficiency (Acute) Tobacco abuse (Chronic) Medical History COPD (chronic obstructive pulmonary disease) Auditory hallucinations Left ventricular hypertrophy Obesity hypoventilation syndrome Schizoaffective disorder Post traumatic stress disorder Hyperlipidemia Asthma H/O suicide attempt ADHD Anxiety Bipolar disorder Non-insulin dependent diabetes mellitus Obesity (BMI 30.0-34.9) Hypertension Surgical History Status post bilateral salpingectomy S/P cholecystectomy Family History Other Adopted Social History Smoking/Tobacco Use Status: Current every day Tobacco Type: cigarettes Smoking packs per day: 0.25 Smoking cigarettes per day: 5.0 Years smoked: 40 Smoking pack-years: 10.00 Tobacco: How many years used: 40 Smoking risk assessment performed?: Yes Alcohol Intake: never Drug use: Occasionally Substance use type: marijuana Housing: apartment Do you feel safe at home: Yes Do you feel safe in your relationship?: Yes Additional Social history: Lives with on [address] in [facility]. She is disabled with her medical and mental health conditions. 22 year old daughter in [place].
[2025-08-21] MEDS: Albuterol/Ipratropium 3 ML UPD VIAL UPD (01:50)
[2025-08-21 02:17] LABS: Glucose 500 mg/dL (Negative)
[2025-08-21 02:25] LABS: WBC Negative HPF (0-5)
[2025-08-21 02:26] LABS: C & S Indicated? No
[2025-08-21 02:31] LABS: Cannabinoids THC Positive (Negative); METHADONE URINE SCREEN Negative (Negative)
[2025-08-21 02:38] LABS: ALT 12 U/L (14-59); AST 10 U/L (15-37); Albumin 2.7 g/dL (3.4-5.0); Alkaline Phosphatase 158 U/L (46-116); Anion Gap 6.9 mmol/L (3-11); BUN 22 mg/dL (7-18); Bilirubin, Total 0.2 mg/dL (0.2-1.0); CO2 33.1 mmol/L (21.0-32.0); Calcium 7.9 mg/dL (8.5-10.1); Chloride 99 mmol/L (98-107); Estimated GFR 39.05 (mL/min/1.73m2); Glucose 318 mg/dL (74-106); Potassium 3.5 mmol/L (3.5-5.1); Sodium 139 mmol/L (136-145); Total Protein 7.3 g/dL (6.4-8.2)
[2025-08-21 02:49] LABS: Abs Immature Grans 0.19 10^3/uL (0.0-0.06); HCT 40.1 % (36.0-46.0); HGB 13.1 g/dL (11.2-15.7); Immature Grans % 1.4 %; MCH 29.4 pg (27.0-33.0); MCHC 32.7 % (32.0-36.0); MCV 90 fL (80-95); MPV 10.0 fL (8.0-11.0); Platelet Count 216 10^3/uL (130-400); RBC 4.46 10^6/uL (3.93-5.22); RDW 15.5 % (11.7-14.6); RDW-SD 51.0 fL; WBC 13.37 10^3/uL (4.4-10.8)
--- NOTE | 2025-08-21 02:49 | DI.RAD_ITS ---
Exam(s) XR PORTABLE CHEST AP EXAM: XR PORTABLE CHEST AP CLINICAL HISTORY: wheeze, SOB TECHNIQUE: 2D digital imaging was performed. COMPARISON: CR,XR XR PORTABLE CHEST AP from 08/02/2025 FINDINGS: Exam is limited by patient body habitus. Lung apices are obscured by the patient's chin. Lungs are suboptimally inflated. LUNGS: Clear. No pleural abnormality seen. HEART: Normal size. AORTA: Normal diameter. BONES: Old left rib fracture. Soft tissues: Unremarkable. IMPRESSION: Limited exam. No acute findings. The preliminary [facility] report was reviewed. DATA REPOSITORY: RADIATION DOSE DELIVERED:
[2025-08-21 02:59] LABS: Salicylate 4.5 mg/dL (<2.8)
[2025-08-21 03:03] LABS: Acetaminophen < 2 ug/mL (10-30)
[2025-08-21] MEDS: Normal Saline 1,000 ML 1000 ML IV (03:17)
--- NOTE | 2025-08-21 03:57 | DI.[facility]_ITS ---
PROCEDURE INFORMATION: Exam: XR Chest Exam date and time: 08/21/2025 2:44 AM Age: 49 years old Clinical indication: Shortness of breath and wheezing TECHNIQUE: Imaging protocol: Radiologic exam of the chest. Views: 1 view. COMPARISON: CR XR PORTABLE CHEST AP 08/02/2025 12:51 AM FINDINGS: Lungs: Low lung volumes. Mild pulmonary vascular prominence, unchanged. Pleural spaces: No large pleural effusion seen. Heart/Mediastinum: Cardiac silhouette magnified by AP technique and low lung volumes. Bones/joints: Nonacute rib deformities. IMPRESSION: Findings as above. Dictated and Authenticated by: Claribel Shepard MD. Orderin Douglas Higgins MD
--- NOTE | 2025-08-21 07:51 | PDOC.MHCN ---
Date of service: 08/21/25 Time of Service: 06:08 PHQ-9 Over the last 2 weeks, how often have you been bothered by any of the following problems? 1. Little interest or pleasure in doing things: nearly every day 2. Feeling down, depressed, or hopeless: nearly every day 3. Trouble falling or staying asleep, or sleeping too much: nearly every day 4. Feeling tired or having little energy: nearly every day 5. Poor appetite or overeating: nearly every day 6. Feeling bad about yourself - or that you are a failure or have let yourself and your family down: nearly every day 7. Trouble concentrating on things, such as reading the newspaper or watching television: nearly every day 8. Moving or speaking so slowly that other people could have noticed? - Or the opposite - being so fidgety or restless that you have been moving around a lot more than usual: nearly every day 9. Thoughts that you would be better off or of hurting yourself in some way: several days Total score: 25 If you checked off any problems, how difficult have these problems made it for you to do your work, take care of things at home, or get along with other people?: extremely difficult Source: Developed by Drs. Ronaldo Zamudio, Brandy Mitchell, Lusi Amanda and colleagues, with an educational pablo from [employer]. Suicide Severity Rate CSSRS Have you wished you were or wished you could go to sleep and not wake up?: Yes Have you actually had any thoughts of killing yourself?: Yes CSSRS2 Have you been thinking about how you might do this?: Yes Have you had these thoughts and had some intention of acting on them?: Yes Have you started to work out or worked out the details of how to kill yourself? Do you intend to carry out this plan?: Yes CSSRS3 Have you ever done anything, started to do anything or prepared to do anything to end your life?: Yes CSSRS4 Was this within the past three months?: No Screening Score Total Score: 6 Screening: Positive Mental Health Emergency Note Release [facility] release signed:: Yes Reason for Visit The client presented to [facility] ED with SI with intent and plan stemming from issues at home. The client is known to [facility] and this clinician. The client reports to be supported by her casework specialist Sherri, psychiatrists Dr. Ponce and her therapist Patel at [facility]. Per chart review the client missed her last therapy appointment on 08/08 with Patel. The client self reports to have been hospitalized 21 times in the past. The client stated the last time she was hospitalized for her mental health was a few months ago at [facility]. In the last 2 weeks has the pt presented for ES prior to today?: Yes, presented at [facility] ED and [facility] Client Information Client is: Adult Outpatient Well Housed: Yes Non Suicidal Self Injury Current: No History: No Safety Risk/Harm to Self or Others Current Ideation to Harm Self or Others: Yes to self. Intent: yes, has intent. Plan: yes,has a plan. History of suicide attempt: yes,history of suicide attempt reported. Details of previous suicide attempt: The client reports attempting to by suicide via overdose on sleeping pills in 2012. Risk: Does risk to harm exist?: yes. Access to means: Yes. Types of Means: Medication. Counseling provided: No Risk: Moderate Risk Duty to warn indicated: No Asssessment/Mental Status Appearance: Disheveled Attitude: Cooperative and Friendly Behavior: Unremarkable Speech: Normal Affect: Cogruent with mood Mood: Depressed Thought process: Goal directed and Circumstational Hallucinations: yes, Auditory (The client reports hearing voices telling her to harm herself.) Delusions: No Attention: Unremarkable Perception: Not impaired Orientation: Fully orientated Memory: Intact Insight: Poor Judgement: Poor Neurovegetative Symptoms Sleep: Decrease Appetitie: Increase Interests: Decrease Energy: Decrease Libido: Not applicable Additional Issues: Assaultive/Threatening Behavior: No Medical Concerns: No Client engaged in active self harm w/weapon: No Threatening to run away: No Child reported abuse/neglect: No Voluntarily presenting for services: Yes Domestic violence is a concern: No Extreme Psychosis or extreme behavior is present: No Impression The client is a 49 year old biological female who resides with her in [place], [place]. The client presents to [facility] ED in a disheveled appearance. The client is seen in blue paper hospital clothing sitting on her hospital bed. Affect is appears to be congruent with mood. Speech is in normal range. Client is friendly and cooperative; they report their mood as depressed. Thought process appears to be circumstantial and goal directed. The client self reports to have auditory hallucinations of voices in her head telling her to harm herself. The client denied visual hallucinations. There are no delusions observed by this clinician. Cognitive assessment reveals orientation to person and place and time. The client reports her and her got in a bad fight last night about her leaving. The client states she was supposed to go stay with a friend a week ago to get space away from her . The client states she did not end up going to stay with her friend because her told her things would be different and he would not yell or get mad at her. The client reports SI with a plan of eating rat poison or carbon monoxide poisoning. The client rates her intent to be a 10 out of 10. The client denies HI and NSSI with no intent and plan. The client scored a 25/27 on the PHQ-9 and a 6/6 on the CSSRS. The client stating she is seeking inpatient treatment at this time due to feeling like she cannot keep herself safe at home. Plan/Disposition Recommended Disposition: Hospitalization facilities contacted. Plan: The client will remain at [facility] ED until placement is secured for voluntary inpatient treatment. The client will be seen once daily by emergency services until placed. Reports/communication Outcome discussed with: ED/Personnel
--- NOTE | 2025-08-21 09:55 | CMSP_ITS ---
Date of service: 08/21/25 Time of Service: 09:55 Care Management Safety Plan Status Status: Voluntary Reason for Wait Reason for Wait: Inpatient Admission Safety Plan Safety Plan: VOLUNTARY FOR INPATIENT PSYCHIATRIC STABILIZATION.? Patient is appropriate in all interactions since arriving at [facility]; Pt has demonstrated appropriate coping and communication skills, has articulated his or her needs and concerns and is fully engaged during staff interactions. Safety plan has been established with patient, and care team, to adhere to patient goals, identify restrictions based on behavioral status, address nutrition, and determine allowed personal belongings, tools for hygiene and personal care. Determine level of activity including ambulation, level of superv ision, visitors, and determine privileges based on behaviors and level of engagement by pt. VOLUNTARY SAFETY PLAN: 1. Will remain on suicide precautions, in paper clothes 2. Will remain in Zone B under direct supervision of one-on-one staff at all times provided by [employer]; MARLEE, GRE TUTOR rip machine operator. 3. May have paper cups, plates, finger foods as well as a cardboard spoon with which to eat meals. 4. Follow [facility] Management of the Admitted Behavioral Health Patient policy. 5. Shower available in Zone B without restriction. 6. Personal belongings-soft items permitted at RN discretion. 7. Visitors-n supportive visitors at RN discretion. 8. Activities: soft cart items, hospital tablets (Netflix/[employer]+/music) approved per RN discretion. 9.? Bathroom available in Zone B without restriction. 10. Phone: limited to [facility] cordless phone at RN discretion. Due to VOLUNTARY status, if patient wishes to leave [facility], staff will contact [facility] Crisis Screener ([phone]) and Gallery Or Museum Technician ([phone]) as soon as possible. In the event of elopement, notify [facility] Police ([phone]). Patient is currently voluntarily at [facility] and seeking inpatient admission when a bed becomes available. [facility] Frontline Manager Mechanical Maintenance will continue seeking placement. Please contact the Gallery Or Museum Technician ([phone]) and [facility] Manager Mechanical Maintenance ([phone]) for any needed changes in the Safety Plan. Safety plan has been provided to interdepartmental care team.
--- NOTE | 2025-08-21 09:55 | PDOC.CMSAFE ---
Date of service: 08/21/25 Time of Service: 09:55 Care Management Safety Plan Status Status: Voluntary Reason for Wait Reason for Wait: Inpatient Admission Safety Plan Safety Plan: VOLUNTARY FOR INPATIENT PSYCHIATRIC STABILIZATION.? Patient is appropriate in all interactions since arriving at [facility]; Pt has demonstrated appropriate coping and communication skills, has articulated his or her needs and concerns and is fully engaged during staff interactions. Safety plan has been established with patient, and care team, to adhere to patient goals, identify restrictions based on behavioral status, address nutrition, and determine allowed personal belongings, tools for hygiene and personal care. Determine level of activity including ambulation, level of supervision, visitors, and determine privileges based on behaviors and level of engagement by pt. VOLUNTARY SAFETY PLAN: 1. Will remain on suicide precautions, in paper clothes 2. Will remain in Zone B under direct supervision of one-on-one staff at all times provided by [employer]; MARLEE, FORMING MACHINE UPKEEP MECHANIC HELPER senior project manager engineering. 3. May have paper cups, plates, finger foods as well as a cardboard spoon with which to eat meals. 4. Follow [facility] Management of the Admitted Behavioral Health Patient policy. 5. Shower available in Zone B without restriction. 6. Personal belongings-soft items permitted at RN discretion. 7. Visitors-n supportive visitors at RN discretion. 8. Activities: soft cart items, hospital tablets (Netflix/[place]+/music) approved per RN discretion. 9.? Bathroom available in Zone B without restriction. 10. Phone: limited to [facility] cordless phone at RN discretion. Due to VOLUNTARY status, if patient wishes to leave [facility], staff will contact [facility] Crisis Screener ([phone]) and Market President ([phone]) as soon as possible. In the event of elopement, notify [facility] Police ([phone]). Patient is currently voluntarily at [facility] and seeking inpatient admission when a bed becomes available. [facility] Frontline State Patrol Officer will continue seeking placement. Please contact the Market President ([phone]) and [facility] State Patrol Officer ([phone]) for any needed changes in the Safety Plan. Safety plan has been provided to interdepartmental care team.
--- NOTE | 2025-08-21 09:58 | PDOC.CMPRO ---
Date of service: 08/21/25 Time of Service: 13:43 Care Management Progress Note Progress Note Text Progress Note Text: CM discussed Cecilia's plan of care with Zone b RN, powerhouse mechanic supervisor, ED admission discharge rn and [facility]. Per [facility], Cecilia is endorsing SI with access to means and has disclosed an active plan involving the use of rat poison. Per [facility], supportive visitation is considered appropriate at this time; safety plan is in place. [facility] advised that Cecilia?s has historically been a potential emotional trigger for her and may not be considered a supportive visitor. Referrals have been sent. CM will follow. Status Status: Voluntary Reason for Wait: Inpatient Admission Social Determinants of Health Screening Will the Patient Participate in the Screening?: Declined to provide
[2025-08-21] MEDS: SITagliptin 100 MG TAB PO (10:30)
[2025-08-21] MEDS: Cyclobenzaprine 10 MG TAB PO (11:00)
[2025-08-21] MEDS: Sertraline 100 MG TAB 150 MG PO (11:01)
[2025-08-21] MEDS: busPIRone 15 MG TAB 60 MG PO ×2 (11:02→22:07)
[2025-08-21] MEDS: Empaglifozin 25 MG TAB PO (11:02)
[2025-08-21] MEDS: Pregabalin 25 MG CAP 75 MG PO ×3 (11:18→22:07)
[2025-08-21] MEDS: Spironolactone 25 MG TAB PO (11:18)
[2025-08-21] MEDS: Lisinopril 20 MG TAB (11:36)
[2025-08-21] MEDS: Tiotropium Bromide-Respimat 10 PUFF INH 2 PUFF IH (12:09)
--- NOTE | 2025-08-21 12:29 | ED.PROG1_ITS ---
Date of service: 08/21/25 Time of Service: 12:29 Psychiatric Border Handoff Update Brief Story: This is a 49-year-old female signed out to me after arrival with a complaint of suicidality and depression. The patient was reseen and reexamined by me. Old charts were reviewed and nursing notes were reviewed. Patient is complaining of a rash under the pannus of her abdomen. Examination reveals significant fungal appearing skin infection. Nystatin was initiated. Patient has no other acute medical issues. We continue to await placement. Status: voluntary Discharge Plan Discharge Details Chief Complaint: PsychEval Primary Care Provider: BRYCE SMITH ED Provider: Ronaldo Cole Odum Meds and New Rx's Prescriptions: No Action (DME) Oxygen Tank See Rx Instructions .Route Qty: 1 0RF Rx Instructions: 2LPM with exertion ipratropium-albuterol 0.5 mg-3 mg(2.5 mg base)/3 mL solution for nebulization 3 ml UPD Q4H PRN PRN (Reason: shortness of breath or wheezing) Qty: 540 12RF Jardiance 25 mg tablet 25 mg PO DAILY Dulera 200-5 mcg/actuation HFA aerosol inhaler 2 puff inhalation BID Qty: 13 12RF Rx Instructions: Rinse mouth after use Spiriva Respimat 2.5 mcg/actuation mist 2 puff inhalation DAILY Qty: 4 12RF buspirone 30 mg tablet 60 mg PO BID Patient Comments: reports she is taking 60mg BID lisinopril 20 mg Tablet 20 mg PO DAILY divalproex [Depakote] 500 mg Tablet,Delayed Release (Dr/Ec) 1,000 mg PO HS risperidone [Risperdal] 2 mg Tablet 6 mg PO HS spironolactone 25 mg Tablet 25 mg PO DAILY Qty: 30 0RF melatonin 10 mg capsule 10 mg PO HS prazosin 5 mg capsule 10 mg PO QHS Patient Comments: TAKE TWO CAPSULES BY MOUTH EVERY EVENING AT BEDTIME pregabalin 75 mg capsule 75 mg PO TID Patient Comments: TAKE ONE CAPSULE BY MOUTH THREE TIMES A DAY DIRECTED FOR CHRONIC NERVE PAIN ibuprofen 800 mg tablet 800 mg PO BID PRN PRN Patient Comments: TAKE ONE TABLET BY MOUTH TWICE A DAY NEEDED furosemide [Lasix] 20 mg tablet 20 mg PO DAILY Qty: 14 0RF albuterol sulfate 2.5 mg /3 mL (0.083 %) solution for nebulization 2.5 mg inhalation Q4H PRN PRN albuterol sulfate 90 mcg/actuation HFA aerosol inhaler 2 puff inhalation Q6H PRN PRN (Reason: shortness of breath or wheezing) lorazepam 0.5 mg tablet 0.5 mg PO BID PRN Patient Comments: TAKE ONE TABLET BY MOUTH EVERY DAY NEEDED FOR SEVERE ANXIETY sertraline 100 mg tablet 150 mg PO DAILY Patient Comments: TAKE ONE AND ONE-HALF TABLETS BY MOUTH EVERY DAY atomoxetine 18 mg capsule 18 mg PO DAILY Patient Comments: TAKE ONE CAPSULE BY MOUTH EVERY MORNING, TAKE WITH 80MG FOR TOTAL OF 98MG DAILY atomoxetine 80 mg capsule 80 mg PO DAILY Patient Comments: TAKE ONE CAPSULE BY MOUTH EVERY DAY WITH 18MG TO MAKE A TOTAL OF 98MG DAILY (DME) blood-glucose meter [[employer] (TT[employer]) Verio Flex meter] Misc MISCELLANEOUS Patient Comments: USE DIRECTED DAILY (DME) [employer] (TTN) Verio test strips Strip MISCELLANEOUS Patient Comments: USE ONE STRIP VIA METER EVERY DAY (DME) nebulizer and compressor [Comp-Air Nebulizer Compressor] Device MISCELLANEOUS Patient Comments: USE DIRECTED Januvia 100 mg tablet 100 mg PO DAILY Patient Comments: TAKE ONE TABLET BY MOUTH EVERY DAY DIRECTED FOR DIABETES (DME) lancets [NangateTouch Delica Plus Lancet] 33 gauge [facility] MISCELLANEOUS Patient Comments: USE ONCE EVERY DAY cyclobenzaprine 5 mg tablet 10 mg PO DAILY
[2025-08-21] MEDS: Furosemide 20 MG TAB PO (13:11)
[2025-08-21] MEDS: Budesonide/Formoterol 160/4.5 6 GM 60 PUFF INH IH (13:13)
[2025-08-21] MEDS: Nystatin POWDER 15 GM JAR TP (13:15)
--- NOTE | 2025-08-21 14:35 | NUR.NOTE ---
has a red rash under her belly and into mihir area. nystatin powder applied.Nursing Note:
[2025-08-21] MEDS: Prazosin 5 MG CAP 10 MG PO (20:47)
[2025-08-21] MEDS: LORazepam 0.5 MG TAB PO (20:47)
[2025-08-21] MEDS: risperiDONE 1 MG TAB 6 MG PO (22:06)
[2025-08-21] MEDS: Divalproex 500 MG TABEC 1000 MG PO (22:55)
[2025-08-22] VITALS (59 sets, daily range): BP systolic 155–176; BP diastolic 85–94; PULSE 92–121; RESP 18; TEMP 37; O2SAT 78–95
[2025-08-22 06:23] LABS: Anion Gap 6.2 mmol/L (3-11); BUN 22 mg/dL (7-18); CO2 33.8 mmol/L (21.0-32.0); Calcium 8.0 mg/dL (8.5-10.1); Chloride 102 mmol/L (98-107); Estimated GFR 68.63 (mL/min/1.73m2); Glucose 200 mg/dL (74-106); Potassium 3.3 mmol/L (3.5-5.1); Sodium 142 mmol/L (136-145)
--- NOTE | 2025-08-22 08:04 | CMSP_ITS ---
Date of service: 08/22/25 Time of Service: 08:07 Care Management Safety Plan Status Status: Voluntary Reason for Wait Reason for Wait: Inpatient Admission Safety Plan Safety Plan: VOLUNTARY FOR INPATIENT PSYCHIATRIC STABILIZATION.? Patient is appropriate in all interactions since arriving at [facility]; Pt has demonstrated appropriate coping and communication skills, has articulated his or her needs and concerns and is fully engaged during staff interactions. Safety plan has been established with patient, and care team, to adhere to patient goals, identify restrictions based on behavioral status, address nutrition, and determine allowed personal belongings, tools for hygiene and personal care. Determine level of activity including ambulation, level of supervision, visitors, and determine privileges based on behaviors and level of engagement by pt. VOLUNTARY SAFETY PLAN: 1. Will remain on suicide precautions, in paper clothes 2. Will remain in Zone B under direct supervision of one-on-one staff at all times provided by [employer]; MARLEE, MEDICAL OBSERVER coater operator. 3. May have paper cups, plates, finger foods as well as a cardboard spoon with which to eat meals. 4. Follow [facility] Management of the Admitted Behavioral Health Patient policy. 5. Shower available in Zone B without restriction. 6. Personal belongings-soft items permitted at RN discretion. 7. Visitors- supportive visitors at RN discretion. 8. Activities: soft cart items, hospital tablets (Netflix/[place]+/music) approved per RN discretion. 9.? Bathroom available in Zone B without restriction. 10. Phone: limited to [facility] cordless phone at RN discretion. Due to VOLUNTARY status, if patient wishes to leave [facility], staff will contact [facility] Crisis Screener ([phone]) and Director Of Health Care Marketing ([phone]) as soon as possible. In the event of elopement, notify [facility] Police ([phone]). Patient is currently voluntarily at [facility] and seeking inpatient admission when a bed becomes available. [facility] Frontline Feed Adviser will continue seeking placement. Please contact the Director Of Health Care Marketing ([phone]) and [facility] Feed Adviser ([phone]) for any needed changes in the Safety Plan. Safety plan has been provided to interdepartmental care team.
--- NOTE | 2025-08-22 08:04 | PDOC.CMSAFE ---
Date of service: 08/22/25 Time of Service: 08:07 Care Management Safety Plan Status Status: Voluntary Reason for Wait Reason for Wait: Inpatient Admission Safety Plan Safety Plan: VOLUNTARY FOR INPATIENT PSYCHIATRIC STABILIZATION.? Patient is appropriate in all interactions since arriving at [facility]; Pt has demonstrated appropriate coping and communication skills, has articulated his or her needs and concerns and is fully engaged during staff interactions. Safety plan has been established with patient, and care team, to adhere to patient goals, identify restrictions based on behavioral status, address nutrition, and determine allowed personal belongings, tools for hygiene and personal care. Determine level of activity including ambulation, level of supervision, visitors, and determine privileges based on behaviors and level of engagement by pt. VOLUNTARY SAFETY PLAN: 1. Will remain on suicide precautions, in paper clothes 2. Will remain in Zone B under direct supervision of one-on-one staff at all times provided by [employer]; MARLEE, [employer] FIRM ACCOUNTS MANAGER retread operator. 3. May have paper cups, plates, finger foods as well as a cardboard spoon with which to eat meals. 4. Follow [facility] Management of the Admitted Behavioral Health Patient policy. 5. Shower available in Zone B without restriction. 6. Personal belongings-soft items permitted at RN discretion. 7. Visitors- supportive visitors at RN discretion. 8. Activities: soft cart items, hospital tablets (Netflix/[place]+/music) approved per RN discretion. 9.? Bathroom available in Zone B without restriction. 10. Phone: limited to [facility] cordless phone at RN discretion. Due to VOLUNTARY status, if patient wishes to leave [facility], staff will contact [facility] Crisis Screener ([phone]) and School Occupational Therapist ([phone]) as soon as possible. In the event of elopement, notify [facility] Police ([phone]). Patient is currently voluntarily at [facility] and seeking inpatient admission when a bed becomes available. [facility] Frontline Warehouse Logistics Coordinator will continue seeking placement. Please contact the School Occupational Therapist ([phone]) and [facility] Warehouse Logistics Coordinator ([phone]) for any needed changes in the Safety Plan. Safety plan has been provided to interdepartmental care team.
--- NOTE | 2025-08-22 08:05 | PDOC.CMPRO ---
Date of service: 08/22/25 Time of Service: 11:23 Care Management Progress Note Progress Note Text Progress Note Text: CM discussed Cecilia's plan of care with Zone b RN, warehouse shift supervisor, ED smoking pipe maker and [facility]. Per report, she is transferred back to the Emergency Department in the evenings to receive oxygen therapy, which she requires overnight. Per [facility], she is reporting endorsing SI 8/10 and hearing voices tell her to kill herself. BR declined this patient for admission, Raj is considering. Per RN, she has been appropriate. CM will continue to follow. Status Status: Voluntary Reason for Wait: Inpatient Admission Social Determinants of Health Screening Will the Patient Participate in the Screening?: Declined to provide
--- NOTE | 2025-08-22 08:13 | ED.PSYCHBOAR ---
Date of service: 08/22/25 Time of Service: 08:13 Psychiatric Border Handoff Update Brief Story: Received signout on this 49-year-old female voluntary in setting of suicidal ideation. She had a repeat basic metabolic panel as she had had an acute kidney injury. Her creatinine improved. She is pending a valproic acid level. Status: voluntary Able to leave: would need physician/ELISHA and crisis evaluation prior to leaving Medical Concerns: Therapeutic valproic acid level.Patient signed out to Dr. Blue. Mediation Reconciliation performed: Yes Code Status ordered: Yes Diet ordered: Yes Discharge Plan Discharge Details Chief Complaint: PsychEval Primary Care Provider: BRYCE SMITH ED Provider: Patel Mckinney Spade Meds and New Rx's Prescriptions: No Action (DME) Oxygen Tank See Rx Instructions .Route Qty: 1 0RF Rx Instructions: 2LPM with exertion ipratropium-albuterol 0.5 mg-3 mg(2.5 mg base)/3 mL solution for nebulization 3 ml UPD Q4H PRN PRN (Reason: shortness of breath or wheezing) Qty: 540 12RF Jardiance 25 mg tablet 25 mg PO DAILY Dulera 200-5 mcg/actuation HFA aerosol inhaler 2 puff inhalation BID Qty: 13 12RF Rx Instructions: Rinse mouth after use Spiriva Respimat 2.5 mcg/actuation mist 2 puff inhalation DAILY Qty: 4 12RF buspirone 30 mg tablet 60 mg PO BID Patient Comments: reports she is taking 60mg BID lisinopril 20 mg Tablet 20 mg PO DAILY divalproex [Depakote] 500 mg Tablet,Delayed Release (Dr/Ec) 1,000 mg PO HS risperidone [Risperdal] 2 mg Tablet 6 mg PO HS spironolactone 25 mg Tablet 25 mg PO DAILY Qty: 30 0RF melatonin 10 mg capsule 10 mg PO HS prazosin 5 mg capsule 10 mg PO QHS Patient Comments: TAKE TWO CAPSULES BY MOUTH EVERY EVENING AT BEDTIME pregabalin 75 mg capsule 75 mg PO TID Patient Comments: TAKE ONE CAPSULE BY MOUTH THREE TIMES A DAY DIRECTED FOR CHRONIC NERVE PAIN ibuprofen 800 mg tablet 800 mg PO BID PRN PRN Patient Comments: TAKE ONE TABLET BY MOUTH TWICE A DAY NEEDED furosemide [Lasix] 20 mg tablet 20 mg PO DAILY Qty: 14 0RF albuterol sulfate 2.5 mg /3 mL (0.083 %) solution for nebulization 2.5 mg inhalation Q4H PRN PRN albuterol sulfate 90 mcg/actuation HFA aerosol inhaler 2 puff inhalation Q6H PRN PRN (Reason: shortness of breath or wheezing) lorazepam 0.5 mg tablet 0.5 mg PO BID PRN Patient Comments: TAKE ONE TABLET BY MOUTH EVERY DAY NEEDED FOR SEVERE ANXIETY sertraline 100 mg tablet 150 mg PO DAILY Patient Comments: TAKE ONE AND ONE-HALF TABLETS BY MOUTH EVERY DAY atomoxetine 18 mg capsule 18 mg PO DAILY Patient Comments: TAKE ONE CAPSULE BY MOUTH EVERY MORNING, TAKE WITH 80MG FOR TOTAL OF 98MG DAILY atomoxetine 80 mg capsule 80 mg PO DAILY Patient Comments: TAKE ONE CAPSULE BY MOUTH EVERY DAY WITH 18MG TO MAKE A TOTAL OF 98MG DAILY (DME) blood-glucose meter [[employer] Verio Flex meter] [facility] MISCELLANEOUS Patient Comments: USE DIRECTED DAILY (DME) [employer] Verio test strips Strip MISCELLANEOUS Patient Comments: USE ONE STRIP VIA METER EVERY DAY (DME) nebulizer and compressor [Comp-Air Nebulizer Compressor] Device MISCELLANEOUS Patient Comments: USE DIRECTED Januvia 100 mg tablet 100 mg PO DAILY Patient Comments: TAKE ONE TABLET BY MOUTH EVERY DAY DIRECTED FOR DIABETES (DME) lancets [[employer]Touch Delica Plus Lancet] 33 gauge [facility] MISCELLANEOUS Patient Comments: USE ONCE EVERY DAY cyclobenzaprine 5 mg tablet 10 mg PO DAILY
--- NOTE | 2025-08-22 09:37 | W.PCEDHO ---
Registration Status: REG ER Primary Language: Preferred Language: ED Information & Data Chief Complaint PsychEval 08/21/25 01:31 Chief Complaint PsychEval 08/21/25 01:29 Triage Note Zeinab reports feeling 08/21/25 01:29 persistently depressed and having bat thoughts. PT has not bathed in more than a week (bathroom too dirty to use, PT too depressed to clean). PT planned to poison herself with rat poison. Medical / Surgical History (Last Reviewed 08/21/25 @ 01:53 by Ronaldo Cole MD) ADHD Anxiety Asthma Auditory hallucinations Bipolar disorder COPD (chronic obstructive pulmonary disease) H/O suicide attempt Hyperlipidemia Hypertension Left ventricular hypertrophy Non-insulin dependent diabetes mellitus Obesity (BMI 30.0-34.9) Obesity hypoventilation syndrome Post traumatic stress disorder Schizoaffective disorder (Last Reviewed 08/21/25 @ 01:53 by Ronaldo Cole MD) S/P cholecystectomy Status post bilateral salpingectomy Most Recent Vital Signs Temperature 37 C 08/21/25 20:00 Temperature Source Tympanic 08/21/25 20:00 Pulse 105 H 08/22/25 09:10 Respiratory Rate 23 08/21/25 20:00 Blood Pressure 173/78 H 08/21/25 20:00 Blood Pressure Mean 109 08/21/25 20:00 Blood Pressure Position Sitting 08/21/25 01:29 Pulse Oximetry 92 08/22/25 09:10 Oxygen Delivery Method OxyMask 08/22/25 00:00 Oxygen Flow Rate 3 08/22/25 00:00 Comment MD and charge notificed. 08/21/25 20:00 Allergies bee pollen Allergy (Verified 08/07/25 06:01) Hives hazelnut Allergy (Verified 08/07/25 06:01) Hives peanut Allergy (Verified 08/07/25 06:01) hallucination tree nut Allergy (Verified 08/07/25 06:01) hallucination gabapentin Adverse Reaction (Severe, Verified 08/07/25 06:01) vomiting vomiting varenicline (From Chantix) Adverse Reaction (Intermediate, Verified 08/07/25 06:01) depression amoxicillin Adverse Reaction (Verified 08/07/25 06:01) Nausea fluoxetine (From Prozac) Adverse Reaction (Verified 08/07/25 06:01) Nausea trazodone Adverse Reaction (Verified 08/07/25 06:01) Weight gain abelox Allergy (Uncoded 08/07/25 06:01) Hives Active Medications Generic Name Dose Route Start Last Admin Trade Name Kristin PRN Reason Stop Dose Admin Budesonide/Formoterol Fumarate 2 puff 08/21/25 08:30 08/21/25 23:30 Budesonide/Formoterol 160/4.5 6 Gm 60 Puff Inh IH Not Given BID MITA Buspirone HCl 60 mg 08/21/25 08:30 08/21/25 22:07 Buspirone 15 Mg Tab PO 60 mg BID MITA Administration Cyclobenzaprine HCl 10 mg 08/22/25 08:30 08/21/25 11:00 Cyclobenzaprine 10 Mg Tab PO 10 mg DAILY MITA Administration Divalproex Sodium 1,000 mg 08/21/25 20:00 08/21/25 22:55 Divalproex 500 Mg Tabec PO 1,000 mg HS MITA Administration Empagliflozin 25 mg 08/21/25 08:30 08/21/25 11:02 Empaglifozin 25 Mg Tab PO 25 mg DAILY MITA Administration Furosemide 20 mg 08/21/25 08:30 08/21/25 13:11 Furosemide 20 Mg Tab PO 20 mg DAILY MITA Administration Lorazepam 0.5 mg 08/21/25 07:48 08/21/25 20:47 Lorazepam 0.5 Mg Tab PO 0.5 mg BID PRN Administration Melatonin 9 mg 08/21/25 20:00 08/21/25 23:30 Melatonin 3 Mg Tab PO Not Given HS MITA Nystatin 15 gm 08/21/25 20:00 08/21/25 13:15 Nystatin Powder 15 Gm Jar TP 1 applic BID MITA Administration Prazosin HCl 10 mg 08/21/25 20:00 08/21/25 20:47 Prazosin 5 Mg Cap PO 10 mg HS MITA Administration Pregabalin 75 mg 08/21/25 08:30 08/21/25 22:07 Pregabalin 25 Mg Cap PO 75 mg TID MITA Administration Risperidone 6 mg 08/21/25 20:00 08/21/25 22:06 Risperidone 1 Mg Tab PO 6 mg HS MITA Administration Sertraline HCl 150 mg 08/21/25 08:30 08/21/25 11:01 Sertraline 100 Mg Tab PO 150 mg DAILY MITA Administration Sitagliptin Phosphate 100 mg 08/21/25 08:30 08/21/25 10:30 Sitagliptin 100 Mg Tab PO 100 mg DAILY MITA Administration Sodium Chloride 0 ml 08/21/25 08:30 08/22/25 00:31 Normal Saline Flush 10 Ml Syr IVP Not Given BID MITA Spironolactone 25 mg 08/21/25 08:30 08/21/25 11:18 Spironolactone 25 Mg Tab PO 25 mg DAILY MITA Administration Tiotropium [place] 2 puff 08/21/25 08:30 08/21/25 12:09 Tiotropium [place]-Respimat 10 Puff Inh IH 2 puff DAILY MITA Administration IV IV Catheter Type [Left Peripheral IV Antecubital] IV Catheter Gauge [Left 20 Antecubital] Diagnostics 08/22/25 Range/Units 06:03 Sodium 142 (136-145) mmol/L Potassium 3.3 L (3.5-5.1) mmol/L Chloride 102 (98-107) mmol/L Carbon Dioxide 33.8 H (21.0-32.0) mmol/L Anion Gap 6.2 (3-11) mmol/L BUN 22 H (7-18) mg/dL Creatinine 1.0 (0.55-1.02) mg/dL Est GFR (CKD-EPI 2020) 68.63 (mL/min/1.73m2) Glucose 200 H (74-106) mg/dL Calcium 8.0 L (8.5-10.1) mg/dL Valproic Acid 97 (50-100) mcg/mL [id number] Documentation Fingerstick Glucose Start: 08/22/25 07:55 Freq: Status: Active Protocol: Activity Type Activity Date Activity User E-sign Co-sign Detail Recorded Client Recorded Date Recorded By Document 08/22/25 07:53 BKG DAEMON [id number] 08/22/25 07:55 BKG DAEMON(2) Intake and Output - 24 Hour Total 08/21/25 01:21 thru 08/21/25 04:26 Intake Total 1000 Balance 1000 Weight 77.111 kg Intake: IV 1000 Falls Risk Assessment History of Falls No History 08/21/25 01:31 Contributing Factors No Factors 08/21/25 01:31 Ambulatory Aids Independent 08/21/25 01:31 Tubes/Lines None 08/21/25 01:31 Gait Evaluation No gait disturbance 08/21/25 01:31 Cognition No cognitive impairment 08/21/25 01:31 Fall Total Score 0 08/21/25 01:31 Level of Risk Standard/Low Risk 08/21/25 01:31 Notes 08/21/25 14:35 Nursing Notes by Leti,Olga Lidia has a red rash under her belly and into mihir area. nystatin powder applied.Nursing Note: Initialized on 08/21/25 14:35 - END OF NOTE v v v v v v v v v Sending and/or Receiving Nurses: Please use comment section below to note any information pertinent to the patient hand-off not included above. Information / Comments: Report received from: Karolyn Newberry RN on 936 on 08/22/25
[2025-08-22] MEDS: Spironolactone 25 MG TAB PO (09:44)
[2025-08-22] MEDS: SITagliptin 100 MG TAB PO (09:44)
[2025-08-22] MEDS: Sertraline 100 MG TAB 150 MG PO (09:46)
[2025-08-22] MEDS: Empaglifozin 25 MG TAB PO (09:46)
[2025-08-22] MEDS: Cyclobenzaprine 10 MG TAB PO (09:46)
[2025-08-22] MEDS: Lisinopril 20 MG TAB PO (09:47)
[2025-08-22] MEDS: busPIRone 15 MG TAB 60 MG PO ×2 (09:47→20:04)
[2025-08-22] MEDS: Tiotropium Bromide-Respimat 10 PUFF INH 2 PUFF IH (09:52)
[2025-08-22] MEDS: Budesonide/Formoterol 160/4.5 6 GM 60 PUFF INH IH ×2 (09:53→20:00)
[2025-08-22] MEDS: Furosemide 20 MG TAB PO (09:53)
[2025-08-22] MEDS: Pregabalin 25 MG CAP 75 MG PO ×3 (10:57→20:04)
[2025-08-22 11:20] LABS: COVID-19 PCR Negative (Negative); RSV PCR Negative (Negative)
[2025-08-22] MEDS: LORazepam 0.5 MG TAB PO (15:08)
--- NOTE | 2025-08-22 15:10 | MHPN_ITS ---
Date of service: 08/22/25 Time of Service: 11:05 Mental Health Emergency Note Release [facility] release signed:: Yes Reason for Visit Per [facility] note from 08/21/2025: The client presented to [facility] ED with SI with intent and plan stemming from issues at home. The client is known to [facility] and this clinician. The client reports to be supported by her telephonic case manager Sherri, psychiatrists Dr. Ponce and her therapist Patel at [facility]. Per chart review the client missed her last therapy appointment on 08/08 with Patel. The client self reports to have been hospitalized 21 times in the past. The client stated the last time she was hospitalized for her mental health was a few months ago at [facility]. Today this insurance underwriter meets with the client in person at [facility] zone b for daily re- assessment. In the last 2 weeks has the pt presented for ES prior to today?: No Impression The client is a 49 year old biological female who resides with her partner in [place], [place]. The client presents to [facility] ED in a disheveled appearance. The client is seen in blue paper hospital clothing laying on her hospital bed. Affect is appears to be congruent with mood. Speech is in normal range. Client is friendly and cooperative; they report their mood as depressed stating: I don't know how much longer I can live like this. The client reports that she needs to get some help. The client is reporting persistent SI with plan to take rat poison and rates intent 8/10 if she were to leave the hospital. This insurance underwriter inquired about the client moving to [place] with her friend and she states: I am not going anymore, I need to face my problems, settle down and not have so many mood swings. The client reports that her appetite and sleep have been good. Plan/Disposition Recommended Disposition: Hospitalization facilities contacted. Plan: The client will remain at [facility] ED on voluntary status pending admission to an inpatient facility. The client will be re-assessed daily until placement is secured or the client is able to be safety planned back to the community. BR has declined the client due to medical. [facility] is awaiting for medical information from [facility] so they can review. Person reported agreement to plan: Yes Reports/communication Outcome discussed with: ED/Personnel ([place]ett[place] completed with [facility] staff)
--- NOTE | 2025-08-22 15:10 | PDOC.MHPN2 ---
Date of service: 08/22/25 Time of Service: 11:05 Mental Health Emergency Note Release [facility] release signed:: Yes Reason for Visit Per [facility] note from 08/21/2025: The client presented to [facility] ED with SI with intent and plan stemming from issues at home. The client is known to [facility] and this clinician. The client reports to be supported by her caseworker Sherri, psychiatrists Dr. Ponce and her therapist Patel at [facility]. Per chart review the client missed her last therapy appointment on 08/08 with Patel. The client self reports to have been hospitalized 21 times in the past. The client stated the last time she was hospitalized for her mental health was a few months ago at [facility]. Today this music writer meets with the client in person at [facility] zone b for daily re-assessment. In the last 2 weeks has the pt presented for ES prior to today?: No Impression The client is a 49 year old biological female who resides with her partner in [place], [place]. The client presents to [facility] ED in a disheveled appearance. The client is seen in blue paper hospital clothing laying on her hospital bed. Affect is appears to be congruent with mood. Speech is in normal range. Client is friendly and cooperative; they report their mood as depressed stating: I don't know how much longer I can live like this. The client reports that she needs to get some help. The client is reporting persistent SI with plan to take rat poison and rates intent 8/10 if she were to leave the hospital. This music writer inquired about the client moving to [place] with her friend and she states: I am not going anymore, I need to face my problems, settle down and not have so many mood swings. The client reports that her appetite and sleep have been good. Plan/Disposition Recommended Disposition: Hospitalization facilities contacted. Plan: The client will remain at [facility] ED on voluntary status pending admission to an inpatient facility. The client will be re-assessed daily until placement is secured or the client is able to be safety planned back to the community. [facility] has declined the client due to medical. [facility] is awaiting for medical information from [facility] so they can review. Person reported agreement to plan: Yes Reports/communication Outcome discussed with: ED/Personnel ([place] completed with [facility] staff)
[2025-08-22] MEDS: Nystatin POWDER 15 GM JAR TP (15:24)
[2025-08-22] MEDS: risperiDONE 1 MG TAB 6 MG PO (20:01)
[2025-08-22] MEDS: Melatonin 3 MG TAB 9 MG PO (20:03)
[2025-08-22] MEDS: Prazosin 5 MG CAP 10 MG PO (20:05)
[2025-08-22] MEDS: Divalproex 500 MG TABEC 1000 MG PO (20:57)
[2025-08-23] VITALS (38 sets, daily range): BP systolic 153; BP diastolic 88; PULSE 75–125; TEMP 36.7; O2SAT 88–100
--- NOTE | 2025-08-23 07:42 | ED.PROG1_ITS ---
Date of service: 08/23/25 Time of Service: 07:43 Psychiatric Border Handoff Update Brief Story: I received signout on this 54-year-old female with depression. She has suicidal ideation. She is voluntary medically cleared. A referral has been sent to [facility]. No active behavioral issues last shift. 12:31 PM I spoke with nurse Sheyla from [facility]. She accepted the patient on behalf of Sofy jimenez. Will send via [employer]. Status: voluntary Able to leave: would need physician/ELISHA and crisis evaluation prior to leaving Mediation Reconciliation performed: Yes Code Status ordered: Yes Diet ordered: Yes Discharge Plan Disposition Patient Disposition: Psychiatric Hospital/Unit Specific Psychiatric Facility: [facility]Psychiatric Unit Discharge Details Clinical Impression: Depression with suicidal ideation Primary Care Provider: BRYCE SMITH ED Provider: Patel Mckinney Home Meds and New Rx's Prescriptions: Continued (DME) Oxygen Tank See Rx Instructions .Route Qty: 1 0RF Rx Instructions: 2LPM with exertion ipratropium-albuterol 0.5 mg-3 mg(2.5 mg base)/3 mL solution for nebulization 3 ml UPD Q4H PRN PRN (Reason: shortness of breath or wheezing) Qty: 540 12RF Jardiance 25 mg tablet 25 mg PO DAILY Dulera 200-5 mcg/actuation HFA aerosol inhaler 2 puff inhalation BID Qty: 13 12RF Rx Instructions: Rinse mouth after use Spiriva Respimat 2.5 mcg/actuation mist 2 puff inhalation DAILY Qty: 4 12RF buspirone 30 mg tablet 60 mg PO BID Patient Comments: reports she is taking 60mg BID lisinopril 20 mg Tablet 20 mg PO DAILY divalproex [Depakote] 500 mg Tablet,Delayed Release (Dr/Ec) 1,000 mg PO HS risperidone [Risperdal] 2 mg Tablet 6 mg PO HS spironolactone 25 mg Tablet 25 mg PO DAILY Qty: 30 0RF melatonin 10 mg capsule 10 mg PO HS prazosin 5 mg capsule 10 mg PO QHS Patient Comments: TAKE TWO CAPSULES BY MOUTH EVERY EVENING AT BEDTIME pregabalin 75 mg capsule 75 mg PO TID Patient Comments: TAKE ONE CAPSULE BY MOUTH THREE TIMES A DAY DIRECTED FOR CHRONIC NERVE PAIN ibuprofen 800 mg tablet 800 mg PO BID PRN PRN Patient Comments: TAKE ONE TABLET BY MOUTH TWICE A DAY NEEDED furosemide [Lasix] 20 mg tablet 20 mg PO DAILY Qty: 14 0RF albuterol sulfate 2.5 mg /3 mL (0.083 %) solution for nebulization 2.5 mg inhalation Q4H PRN PRN albuterol sulfate 90 mcg/actuation HFA aerosol inhaler 2 puff inhalation Q6H PRN PRN (Reason: shortness of breath or wheezing) lorazepam 0.5 mg tablet 0.5 mg PO BID PRN Patient Comments: TAKE ONE TABLET BY MOUTH EVERY DAY NEEDED FOR SEVERE ANXIETY sertraline 100 mg tablet 150 mg PO DAILY Patient Comments: TAKE ONE AND ONE-HALF TABLETS BY MOUTH EVERY DAY atomoxetine 18 mg capsule 18 mg PO DAILY Patient Comments: TAKE ONE CAPSULE BY MOUTH EVERY MORNING, TAKE WITH 80MG FOR TOTAL OF 98MG DAILY atomoxetine 80 mg capsule 80 mg PO DAILY Patient Comments: TAKE ONE CAPSULE BY MOUTH EVERY DAY WITH 18MG TO MAKE A TOTAL OF 98MG DAILY (DME) blood-glucose meter [OneTouch Verio Flex meter] [facility] MISCELLANEOUS Patient Comments: USE DIRECTED DAILY (DME) OneTouch Verio test strips Strip MISCELLANEOUS Patient Comments: USE ONE STRIP VIA METER EVERY DAY (DME) nebulizer and compressor [Comp-Air Nebulizer Compressor] Device MISCELLANEOUS Patient Comments: USE DIRECTED Januvia 100 mg tablet 100 mg PO DAILY Patient Comments: TAKE ONE TABLET BY MOUTH EVERY DAY DIRECTED FOR DIABETES (DME) lancets [OneTouch Delica Plus Lancet] 33 gauge [facility] MISCELLANEOUS Patient Comments: USE ONCE EVERY DAY cyclobenzaprine 5 mg tablet 10 mg PO DAILY Discharge Instructions Additional Instructions: This patient boarded in our emergency department in the setting of her suicidal ideation with depression. She was stabilized and transferred to [facility].
[2025-08-23] MEDS: SITagliptin 100 MG TAB PO (08:44)
[2025-08-23] MEDS: Spironolactone 25 MG TAB PO (08:44)
[2025-08-23] MEDS: Furosemide 20 MG TAB PO (08:45)
[2025-08-23] MEDS: Cyclobenzaprine 10 MG TAB PO (08:45)
[2025-08-23] MEDS: busPIRone 15 MG TAB 60 MG PO (08:45)
[2025-08-23] MEDS: Lisinopril 20 MG TAB PO (08:46)
[2025-08-23] MEDS: Sertraline 100 MG TAB 150 MG PO (08:47)
[2025-08-23] MEDS: LORazepam 0.5 MG TAB PO (11:12)
--- NOTE | 2025-08-23 18:15 | CMPROGNOTE_ITS ---
Date of service: 08/23/25 Time of Service: 11:00 Care Management Progress Note Progress Note Text Progress Note Text: Cecilia was accepted at [facility] for inpatient psychiatric care. She transported via [facility], coordinated by ED staff. She was agreeable to this plan. CM will continue to follow. Social Determinants of Health Screening Will the Patient Participate in the Screening?: Declined to provide
== END 2025-08-23 12:46 ==
PROVIDERS: Emergency Medicine; Emergency Provider Emergency Medicine; PCP Nurse Practitioner Family
DX: F32.A Depression, unspecified (principal); R45.851 Suicidal ideations; R06.2 Wheezing; Z72.0 Tobacco use; Z87.09 Personal history of other diseases of the respiratory system
CPT/HCPCS: 00123; 80048; 80053; 80307; 87637; 94640; 96127; 96360; 99285; G0378; 71045; 80164; 80320; 80329; 81003; 81015; 85025; J3490; J7620

== ENCOUNTER → 2025-10-13 09:37 | Outpatient (BNVA) | payer MEDICARE, MEDICAID, SELFPAY | PROVIDERS: PCP Nurse Practitioner Family; Referring Provider Nurse Practitioner Family; Visit Provider Physician Assistant Surgical | DX: J96.11 Chronic respiratory failure with hypoxia (principal); J96.12 Chronic respiratory failure with hypercapnia; J45.909 Unspecified asthma, uncomplicated; F17.210 Nicotine dependence, cigarettes, uncomplicated; E66.2 Morbid (severe) obesity with alveolar hypoventilation | CPT/HCPCS: 99214 ==

== ENCOUNTER 2025-10-31 00:19 | Emergency (ER) | payer MEDICARE, MEDICAID, SELFPAY ==
[2025-10-31] VITALS (54 sets, daily range): BP systolic 156–180; BP diastolic 79–88; PULSE 98–107; RESP 18–19; TEMP 35.8–36.4; O2SAT 88–92
--- NOTE | 2025-10-31 00:33 | W.ED.GENAD ---
Discharge Plan Discharge Details Chief Complaint: PsychEval Clinical Impression: Suicidal thoughts Primary Care Provider: BRYCE SMITH ED Provider: Demi Henderson Home Meds and New Rx's Prescriptions: No Action (DME) Oxygen Tank See Rx Instructions .Route Qty: 1 0RF Rx Instructions: 2LPM with exertion ipratropium-albuterol 0.5 mg-3 mg(2.5 mg base)/3 mL solution for nebulization 3 ml UPD Q4H PRN PRN (Reason: shortness of breath or wheezing) Qty: 540 12RF Jardiance 25 mg tablet 25 mg PO DAILY Dulera 200-5 mcg/actuation HFA aerosol inhaler 2 puff inhalation BID Qty: 13 12RF Rx Instructions: Rinse mouth after use Spiriva Respimat 2.5 mcg/actuation mist 2 puff inhalation DAILY Qty: 4 12RF pregabalin [Lyrica] 75 mg capsule 75 mg PO DAILY atomoxetine 100 mg capsule 100 mg PO DAILY prednisone 10 mg tablet 10 mg PO DAILY Qty: 34 0RF Rx Instructions: Take 40mg (4 tablets) one a day for 4 days, 30mg (3 tablets) once a day for 3 days, 20mg (2 tablets) once a day for 3 days , 10mg (1 tablet) for 2 days, 5mg (0.5 tablets) for 2 days azithromycin 250 mg tablet See Rx Instructions PO .COMPLEX Qty: 6 0RF Rx Instructions: For 250 mg dose pack: take 500 mg today (day 1), then 250 mg for 4 days (days 2-5) PO buspirone 30 mg tablet 30 mg PO BID Patient Comments: reports she is taking 60mg BID lisinopril 20 mg Tablet 20 mg PO DAILY divalproex [Depakote] 500 mg Tablet,Delayed Release (Dr/Ec) 1,000 mg PO HS risperidone [Risperdal] 2 mg Tablet 6 mg PO QHS spironolactone 25 mg Tablet 25 mg PO DAILY Qty: 30 0RF melatonin 10 mg capsule 10 mg PO HS prazosin 5 mg capsule 10 mg PO QHS Patient Comments: TAKE TWO CAPSULES BY MOUTH EVERY EVENING AT BEDTIME pregabalin 75 mg capsule 75 mg PO TID Patient Comments: TAKE ONE CAPSULE BY MOUTH THREE TIMES A DAY DIRECTED FOR CHRONIC NERVE PAIN Nucala 100 mg/mL auto-injector SUBCUT Patient Comments: PT STATES NOT TAKING risperidone 3 mg tablet 3 mg PO BID Patient Comments: TAKE ONE TABLET BY MOUTH TWICE A DAY ibuprofen 800 mg tablet 800 mg PO BID PRN PRN Patient Comments: TAKE ONE TABLET BY MOUTH TWICE A DAY NEEDED furosemide [Lasix] 20 mg tablet 20 mg PO DAILY Qty: 14 0RF albuterol sulfate 2.5 mg /3 mL (0.083 %) solution for nebulization 2.5 mg inhalation Q4H PRN PRN albuterol sulfate 90 mcg/actuation HFA aerosol inhaler 2 puff inhalation Q6H PRN PRN (Reason: shortness of breath or wheezing) lorazepam 0.5 mg tablet 0.5 mg PO BID PRN Patient Comments: TAKE ONE TABLET BY MOUTH EVERY DAY NEEDED FOR SEVERE ANXIETY sertraline 100 mg tablet 150 mg PO DAILY Patient Comments: TAKE ONE AND ONE-HALF TABLETS BY MOUTH EVERY DAY atomoxetine 18 mg capsule 18 mg PO DAILY Patient Comments: TAKE ONE CAPSULE BY MOUTH EVERY MORNING, TAKE WITH 80MG FOR TOTAL OF 98MG DAILY atomoxetine 80 mg capsule 80 mg PO DAILY Patient Comments: TAKE ONE CAPSULE BY MOUTH EVERY DAY WITH 18MG TO MAKE A TOTAL OF 98MG DAILY (DME) blood-glucose meter [ThermaSourceTouch Verio Flex meter] [facility] MISCELLANEOUS Patient Comments: USE DIRECTED DAILY (DME) OneTouch Verio test strips Strip MISCELLANEOUS Patient Comments: USE ONE STRIP VIA METER EVERY DAY (DME) nebulizer and compressor [Comp-Air Nebulizer Compressor] Device MISCELLANEOUS Patient Comments: USE DIRECTED Januvia 100 mg tablet 100 mg PO DAILY Patient Comments: TAKE ONE TABLET BY MOUTH EVERY DAY DIRECTED FOR DIABETES (DME) lancets [OneTouch Delica Plus Lancet] 33 gauge [facility] MISCELLANEOUS Patient Comments: USE ONCE EVERY DAY cyclobenzaprine 5 mg tablet 5 mg PO BID HPI General Mode of arrival: EMS. Date/Time Provider Initiated Documentation: 10/31/25 00:56. Limitations to Documentation: no limitations. Information obtained by: patient and old records reviewed. HPI Narrative: 49yo F with hx depression, schizoaffective, bipolar, COPD on 3L o2 at night, DM, presenting with SI. Has a long history of this and it is worse than usual right now. Has been thinking about cutting her wrists or poisoning herself with carbon monoxide, but has not made any attempts. Has also been hearing voices recently which she says is not new for her; most recently a voice telling her to take rat poison. She states she has not done so. She is concerned that she may act on these thoughts and so presents to the emergency department tonight. Physically feels at her baseline. No fevers, chills, rash, nausea, vomiting, chest pain, difficutly breathing, or other concerns. Related Data Home Medications ?Medication ?Instructions ?Recorded ?Confirmed divalproex 500 mg tablet,delayed 1,000 mg PO HS 01/18/20 10/31/25 release (Depakote) lisinopril 20 mg tablet 20 mg PO DAILY 01/18/20 10/31/25 risperidone 2 mg tablet (Risperdal) 6 mg PO QHS 01/18/20 10/31/25 Held on 10/31/25. Instructions: Changed by Provider ibuprofen 800 mg tablet 800 mg PO BID PRN PRN 11/20/22 10/31/25 Oxygen #1 ea 12/13/22 10/31/25 spironolactone 25 mg tablet 25 mg PO DAILY #30 tabs 05/06/23 10/31/25 furosemide 20 mg tablet (Lasix) 20 mg PO DAILY #14 tabs 06/13/23 10/31/25 empagliflozin 25 mg tablet 25 mg PO DAILY 12/15/23 10/31/25 (Jardiance) buspirone 30 mg tablet 30 mg PO BID 02/09/24 10/31/25 mometasone-formoterol HFA 200 2 puff inhalation BID #13 grams 08/04/24 10/31/25 mcg-5 mcg/actuation aerosol inhaler (Dulera) tiotropium bromide 2.5 2 puff inhalation DAILY #4 grams 08/04/24 10/31/25 mcg/actuation mist for inhalation (Spiriva Respimat) melatonin 10 mg capsule 10 mg PO HS 08/19/24 10/31/25 prazosin 5 mg capsule 10 mg PO QHS 08/20/24 10/31/25 ipratropium 0.5 mg-albuterol 3 mg 3 ml UPD Q4H PRN PRN shortness of 12/15/24 10/31/25 (2.5 mg base)/3 mL nebulization breath or wheezing #540 mL soln Held on 10/31/25. Instructions: Prescription Finished albuterol sulfate 2.5 mg/3 mL 2.5 mg inhalation Q4H PRN PRN 12/27/24 10/31/25 (0.083 %) solution for nebulization albuterol sulfate 90 mcg/actuation 2 puff inhalation Q6H PRN PRN 12/27/24 10/31/25 aerosol inhaler shortness of breath or wheezing atomoxetine 18 mg capsule 18 mg PO DAILY 01/16/25 10/31/25 Held on 10/31/25. Instructions: Prescription Finished atomoxetine 80 mg capsule 80 mg PO DAILY 01/16/25 10/31/25 Held on 10/31/25. Instructions: Prescription Finished lorazepam 0.5 mg tablet 0.5 mg PO BID PRN 01/16/25 10/31/25 sertraline 100 mg tablet 150 mg PO DAILY 01/16/25 10/31/25 blood sugar diagnostic ([facility] 03/01/25 10/31/25 Verio test strips) blood-glucose meter ([facility] 03/01/25 10/31/25 Verio Flex Meter) lancets 33 gauge (ThermaSourceTouch Delica 03/01/25 10/31/25 Plus Lancet) nebulizer and compressor (Comp-Air 03/01/25 10/31/25 Nebulizer Compressor) sitagliptin phosphate 100 mg 100 mg PO DAILY 03/01/25 10/31/25 tablet (Januvia) cyclobenzaprine 5 mg tablet 5 mg PO BID 08/07/25 10/31/25 pregabalin 75 mg capsule 75 mg PO TID 08/21/25 10/31/25 atomoxetine 100 mg capsule 100 mg PO DAILY 10/13/25 10/31/25 azithromycin 250 mg tablet See Rx Instructions PO .COMPLEX #6 10/13/25 10/31/25 tabs prednisone 10 mg tablet 10 mg PO DAILY #34 tabs 10/13/25 10/31/25 Held on 10/31/25. Instructions: Prescription Finished pregabalin 75 mg capsule (Lyrica) 75 mg PO DAILY 10/13/25 10/31/25 Held on 10/31/25. Instructions: Prescription Finished mepolizumab 100 mg/mL subcutaneous mg subcut 10/31/25 auto-injector (Nucala) Held on 10/31/25. Instructions: Pt Stopped/Never Started risperidone 3 mg tablet 3 mg PO BID 10/31/25 10/31/25 Previous Rx's ?Medication ?Instructions ?Recorded Oxygen #1 ea 12/13/22 spironolactone 25 mg tablet 25 mg PO DAILY #30 tabs 05/06/23 furosemide 20 mg tablet (Lasix) 20 mg PO DAILY #14 tabs 06/13/23 mometasone-formoterol HFA 200 2 puff inhalation BID #13 grams 08/04/24 mcg-5 mcg/actuation aerosol inhaler (Dulera) tiotropium bromide 2.5 2 puff inhalation DAILY #4 grams 08/04/24 mcg/actuation mist for inhalation (Spiriva Respimat) ipratropium 0.5 mg-albuterol 3 mg 3 ml UPD Q4H PRN PRN shortness of 12/15/24 (2.5 mg base)/3 mL nebulization breath or wheezing #540 mL soln Held on 10/31/25. Instructions: Prescription Finished azithromycin 250 mg tablet See Rx Instructions PO .COMPLEX #6 10/13/25 tabs prednisone 10 mg tablet 10 mg PO DAILY #34 tabs 10/13/25 Held on 10/31/25. Instructions: Prescription Finished Allergies Allergy/AdvReac Type Severity Reaction Status Date / Time bee pollen Allergy Hives Verified 10/31/25 00:30 hazelnut Allergy Hives Verified 10/31/25 00:30 peanut Allergy hallucinati Verified 10/31/25 00:30 on tree nut Allergy hallucinati Verified 10/31/25 00:30 on gabapentin AdvReac Severe vomiting Verified 10/31/25 00:30 varenicline (From Chantix) AdvReac Intermediate depression Verified 10/31/25 00:30 amoxicillin AdvReac Nausea Verified 10/31/25 00:30 fluoxetine (From Prozac) AdvReac Nausea Verified 10/31/25 00:30 trazodone AdvReac Weight gain Verified 10/31/25 00:30 abelox Allergy Hives Uncoded 10/31/25 00:30 General Stated Complaint: PsychEval ZACK: 2 Review of Systems Narrative: see HPI Exam Narrative Exam Narrative: General: Alert, well appearing, tearful. Strong odor of cigarette smoke. Head: Normocephalic, atraumatic Neck: Trachea midline, ?Neck supple. ENT: ?MMM.? Cardiac: ?RRR, no murmurs appreciated Resp: No respiratory distress. CTAB. Abd: ?Soft, non-distended, nontender Extremities: ?No deformities.? No peripheral edema. Neurologic: GCS 15. ? Moves all extremities freely against gravity. PERRL, 5mm-2mm. 1+ reflex at ankle and patella bilateraly, no clonus. Psych: Calm, cooperative, tearful. Somewhat disheveled. Mood not good, affect congruent.? Speech with normal volume, rate, rythym and tone. Linear and goal directed.? + SI. + command hallucinations. Denies HI//VH. ? Does not appear to be responding to internal stimuli. Course Vital Signs Vital signs: Vital Signs Temperature 36.4 C L 10/31/25 00:20 Pulse 100 H 10/31/25 00:20 Respiratory Rate 18 10/31/25 00:20 Blood Pressure 180/88 H 10/31/25 00:20 Pulse Oximetry 88 L 10/31/25 00:20 Temperature 36.4 C L 10/31/25 00:20 Temperature Source Tympanic 10/31/25 00:20 Pulse 100 H 10/31/25 00:20 Respiratory Rate 18 10/31/25 00:20 Blood Pressure 180/88 H 10/31/25 00:20 Pulse Oximetry 88 L 10/31/25 00:20 Oxygen Delivery Method Room Air 10/31/25 00:20 Oxygen Flow Rate 0 10/31/25 00:20 Medical Decision Making 49yo F with hx depression, schizoaffective, bipolar, COPD on 3L o2 at night, DM, presenting with SI with plan to cut her wrists or poison herself with carbon monoxide, also with command auditory hallucinations to take rate poison. States she has not acted on any of these and does not intend to, but is worried she might and so presents to the ED. Hypertensive and slightly tachycardiac on arrival. O2 sat 88% on room air, sating 94% on home O2. Benign physical exam. Carbon monoxide level 3.1- 3.8 and patient smokes; not concerning for acute toxicity. -Screening labs reviewed as below, CBC reassuring with no leukoctyosis or anemia, CMP with mild hypocalcmeia at 8.0 (not new on [facility] record review; will order PO supplements and get EKG), Mg normal, coags normal, -depakote level subtheraputic (pt thinks she may have missed some doses), serum toxicology negative. -EKG sinus tachycardia in low 100's, appropriate intervals, no ST segment or T wave abnormalities to suggest occlusive DC. -UDS + for cannaboids and tricyclics. Pt not prescribed any TCA's; she denies any ingestions including any non-prescribed medications. Physical exam and EKG are not suggestive of TCA overdose. She is on cyclobenzaprine which can cause false positives for TCA on UDS; did also have UDS positive for TCA in Dec of this year while also taking this. Strongly suspect this as the cause of positive result. Medically cleared. [facility] evaluated patient and recommended voluntary inpatient treatment; I am in agreement with the plan as is the patient. Repeat vital signs with improved BP, HR remains low 100's which is not abnormal for her on [facility] record review. Placed on ED obs status. Will be signed out to oncoming physician pending voluntary inpatient placement. Medical Records Medical records reviewed: Yes I reviewed the patient's medical records. Medical records narrative: ED [facility] from [facility] Lab Data Lab results reviewed: Yes I reviewed the patient's lab results. Labs: Laboratory Tests Range/Units 10/31/25 10/31/25 00:30 00:40 WBC (4.4-10.8) 10^3/uL 10.33 RBC (3.93-5.22) 10^6/uL 4.78 Hgb (11.2-15.7) g/dL 13.2 Hct (36.0-46.0) % 42.9 MCV (80-95) fL 90 MCH (27.0-33.0) pg 27.6 MCHC (32.0-36.0) % 30.8 L RDW (11.7-14.6) % 17.3 H Plt Count (130-400) 10^3/uL 161 MPV (8.0-11.0) fL 10.1 Immature Gran % % 1.0 Neutrophils % % 73.9 Lymphocytes % % 17.9 Monocytes % % 5.6 Eosinophils % % 1.3 Basophils % % 0.3 Nucleated RBC % (0.0-0.3) % 0.0 Absolute Neutrophils (1.2-6.7) 10^3/uL 7.64 H Absolute Lymphocytes (1.2-3.4) 10^3/uL 1.85 Absolute Monocytes (0.1-0.8) 10^3/uL 0.58 Absolute Eosinophils (0.0-0.7) 10^3/uL 0.13 Absolute Basophils (0.0-0.2) 10^3/uL 0.03 PT (9.1-11.1) sec 9.2 INR (0.9-1.1) 0.9 APTT (20.6-30.2) sec 27.9 Sodium (136-145) mmol/L 137 Potassium (3.5-5.1) mmol/L 3.9 Chloride (98-107) mmol/L 103 Carbon Dioxide (20.0-31.0) mmol/L 30.9 Anion Gap (3-11) mmol/L 3.1 BUN (9-23) mg/dL 16 Creatinine (0.55-1.02) mg/dL 0.86 Est GFR (CKD-EPI 2020) (mL/min/1.73m2) 69.60 Glucose (74-106) mg/dL 245 H Calcium (8.3-10.6) mg/dL 8.0 L Magnesium (1.6-2.6) mg/dL 1.7 Total Bilirubin (0.2-1.2) mg/dL 0.20 AST (<34) U/L 11 ALT (10-49) U/L 7 L Alkaline Phosphatase (46-116) U/L 98 Total Protein (5.7-8.2) g/dL 7.2 Albumin (3.2-5.0) g/dL 3.8 Salicylates (<30.0) mg/dL < 3.0 Urine Opiates Screen (Negative) Negative Urine Methadone Screen (Negative) Negative Acetaminophen (10-20) ug/mL < 2 L Ur Barbiturates Screen (Negative) Negative Valproic Acid (50-100) ug/mL 33 L Ur Tricyclics Screen (Negative) Positive A Ur Amphetamines Screen (Negative) Negative U Benzodiazepines Scrn (Negative) Negative Urine Cocaine Screen (Negative) Negative U Cannabinoids Screen (Negative) Positive A Ethyl Alcohol (<3) mg/dL < 3.0 Quality:SDOH Health Related Social Needs: Health related social needs food insecurity PFSH All Active Problems (Updated 10/31/25 @ 03:06 by Demi Henderson MD) Suicidal thoughts (Acute) Spinal stenosis (Acute) Migraine (Chronic) Nicotine dependence, cigarettes, uncomplicated (Acute) Vitamin D deficiency (Acute) Tobacco abuse (Chronic) Medical History COPD (chronic obstructive pulmonary disease) Auditory hallucinations Left ventricular hypertrophy Obesity hypoventilation syndrome Schizoaffective disorder Post traumatic stress disorder Hyperlipidemia Asthma H/O suicide attempt ADHD Anxiety Bipolar disorder Non-insulin dependent diabetes mellitus Obesity (BMI 30.0-34.9) Hypertension Surgical History Status post bilateral salpingectomy S/P cholecystectomy Family History Other Adopted Social History Smoking/Tobacco Use Status: Current every day Tobacco Type: cigarettes Smoking packs per day: 0.25 Smoking cigarettes per day: 5.0 Years smoked: 40 Smoking pack-years: 10.00 Tobacco: How many years used: 40 Smoking risk assessment performed?: Yes Alcohol Intake: never Drug use: Occasionally Substance use type: marijuana Housing: apartment Do you feel safe at home: Yes Do you feel safe in your relationship?: Yes Additional Social history: Lives with on [address] in [facility]. She is disabled with her medical and mental health conditions. 22 year old daughter in [place].
[2025-10-31 00:49] LABS: Abs Immature Grans 0.10 10^3/uL (0.0-0.06); HCT 42.9 % (36.0-46.0); HGB 13.2 g/dL (11.2-15.7); Immature Grans % 1.0 %; MCH 27.6 pg (27.0-33.0); MCHC 30.8 % (32.0-36.0); MCV 90 fL (80-95); MPV 10.1 fL (8.0-11.0); Platelet Count 161 10^3/uL (130-400); RBC 4.78 10^6/uL (3.93-5.22); RDW 17.3 % (11.7-14.6); RDW-SD 57.5 fL; WBC 10.33 10^3/uL (4.4-10.8)
--- NOTE | 2025-10-31 01:00 | RT.EKG_ITS ---
APPROVED REPORT Exam: Resting ECG Reason for Exam: hypocalcemia Patient Location: E HR:109 bpm ECG Measurements Heart Rate 109 AXIS ID 157 P 47 QRSd 76 QRS 94 QT 340 T 0 QTc 458 Conclusion Sinus tachycardia...rate> [address] segment or T wave abnormalities to suggest occlusive ID
[2025-10-31 01:01] LABS: INR 0.9 (0.9-1.1); PTT Activated 27.9 sec (20.6-30.2); Prothrombin Time 9.2 sec (9.1-11.1)
[2025-10-31] MEDS: Nystatin POWDER 60 GM JAR TP (01:02)
[2025-10-31 01:09] LABS: Magnesium 1.7 mg/dL (1.6-2.6)
[2025-10-31 01:10] LABS: ALT 7 U/L (10-49); AST 11 U/L (<34); Albumin 3.8 g/dL (3.2-5.0); Alkaline Phosphatase 98 U/L (46-116); Anion Gap 3.1 mmol/L (3-11); BUN 16 mg/dL (9-23); Bilirubin, Total 0.20 mg/dL (0.2-1.2); CO2 30.9 mmol/L (20.0-31.0); Calcium 8.0 mg/dL (8.3-10.6); Chloride 103 mmol/L (98-107); Glucose 245 mg/dL (74-106); Potassium 3.9 mmol/L (3.5-5.1); Sodium 137 mmol/L (136-145); Total Protein 7.2 g/dL (5.7-8.2)
[2025-10-31 01:13] LABS: Acetaminophen < 2 ug/mL (10-20); Salicylate < 3.0 mg/dL (<30.0)
[2025-10-31 01:28] LABS: Cannabinoids THC Positive (Negative)
--- NOTE | 2025-10-31 03:00 | PDOC.MHCN_ITS ---
Date of service: 10/31/25 Time of Service: 02:00 PHQ-9 Over the last 2 weeks, how often have you been bothered by any of the following problems? 1. Little interest or pleasure in doing things: nearly every day 2. Feeling down, depressed, or hopeless: nearly every day 3. Trouble falling or staying asleep, or sleeping too much: nearly every day 4. Feeling tired or having little energy: nearly every day 5. Poor appetite or overeating: nearly every day 6. Feeling bad about yourself - or that you are a failure or have let yourself and your family down: nearly every day 7. Trouble concentrating on things, such as reading the newspaper or watching television: nearly every day 8. Moving or speaking so slowly that other people could have noticed? - Or the opposite - being so fidgety or restless that you have been moving around a lot more than usual: nearly every day 9. Thoughts that you would be better off or of hurting yourself in some way: nearly every day Total score: 27 If you checked off any problems, how difficult have these problems made it for you to do your work, take care of things at home, or get along with other people?: extremely difficult Source: Developed by Drs. Ronaldo Zamudio, Brandy Mitchell, Luis Amanda and colleagues, with an educational pablo from [employer]. Suicide Severity Rate CSSRS Have you wished you were or wished you could go to sleep and not wake up?: Yes Have you actually had any thoughts of killing yourself?: Yes CSSRS2 Have you been thinking about how you might do this?: Yes Have you had these thoughts and had some intention of acting on them?: Yes Have you started to work out or worked out the details of how to kill yourself? Do you intend to carry out this plan?: Yes CSSRS3 Have you ever done anything, started to do anything or prepared to do anything to end your life?: Yes CSSRS4 Was this within the past three months?: No Screening Score Total Score: 6 Screening: Positive Mental Health Emergency Note Release [facility] release signed:: Yes Reason for Visit SI with multiple plans In the last 2 weeks has the pt presented for ES prior to today?: Unknown Client Information Client is: Adult Outpatient Non Suicidal Self Injury Current: Yes, no self injury at this time Safety Risk/Harm to Self or Others Current Ideation to Harm Self or Others: No CALM/Risk Level Does risk to harm exist?: yes. Access to means: Yes. Risk: Moderate Risk Duty to warn indicated: No Asssessment/Mental Status Appearance: Other (Paper clothing) Attitude: Cooperative Behavior: Unremarkable Speech: Normal Affect: Normal Mood: Sad and Depressed Thought process: Unremarkable Hallucinations: No Delusions: No Attention: Unremarkable Perception: Not impaired Orientation: Fully orientated Memory: Intact Insight: Fair Judgement: Good Neurovegetative Symptoms Sleep: Decrease Appetitie: Decrease Interests: Decrease Energy: Decrease Libido: Not applicable Substance Use: Do you use nicotine?: No Have you used substances in the last 7 days?: No Additional Issues: Assaultive/Threatening Behavior: No Medical Concerns: No Client engaged in active self harm w/weapon: No Threatening to run away: No Child reported abuse/neglect: No Voluntarily presenting for services: Yes Domestic violence is a concern: No Extreme Psychosis or extreme behavior is present: No Plan/Disposition Recommended Disposition: Hospitalization facilities contacted. Plan: Client will remain at [facility] awaiting placement Person reported agreement to plan: Yes Reports/communication Outcome discussed with: ED/Personnel Final Disposition/Discharge Transportation Checklist completed and faxed: No
--- NOTE | 2025-10-31 07:27 | ED.PSYCHBOAR ---
Date of service: 10/31/25 Time of Service: 07:27 Psychiatric Border Handoff Update Brief Story: I received signout on this 49-year-old female in the emergency department voluntarily in the setting of suicidal ideation. Patient reportedly has had auditory hallucinations. No active behavioral issues last shift. Status: voluntary Able to leave: would need physician/ELISHA and crisis evaluation prior to leaving MDM Shift Events: 3:30 PM Patient was accepted by [facility]. Dr. Mono Aguilera was accepting physician. Mediation Reconciliation performed: Yes Code Status ordered: Yes Diet ordered: Yes Discharge Plan Disposition Patient Disposition: Psychiatric Hospital/Unit Specific Psychiatric Facility: [facility] Discharge Details Clinical Impression: Suicidal thoughts Primary Care Provider: BRYCE SMITH ED Provider: Patel Mckinney Bogue [place] Alannah and New Rx's Prescriptions: Continued (DME) Oxygen Tank See Rx Instructions .Route Qty: 1 0RF Rx Instructions: 2LPM with exertion ipratropium-albuterol 0.5 mg-3 mg(2.5 mg base)/3 mL solution for nebulization 3 ml UPD Q4H PRN PRN (Reason: shortness of breath or wheezing) Qty: 540 12RF Jardiance 25 mg tablet 25 mg PO DAILY Dulera 200-5 mcg/actuation HFA aerosol inhaler 2 puff inhalation BID Qty: 13 12RF Rx Instructions: Rinse mouth after use Spiriva Respimat 2.5 mcg/actuation mist 2 puff inhalation DAILY Qty: 4 12RF pregabalin [Lyrica] 75 mg capsule 75 mg PO DAILY atomoxetine 100 mg capsule 100 mg PO DAILY prednisone 10 mg tablet 10 mg PO DAILY Qty: 34 0RF Rx Instructions: Take 40mg (4 tablets) one a day for 4 days, 30mg (3 tablets) once a day for 3 days, 20mg (2 tablets) once a day for 3 days , 10mg (1 tablet) for 2 days, 5mg (0.5 tablets) for 2 days azithromycin 250 mg tablet See Rx Instructions PO .COMPLEX Qty: 6 0RF Rx Instructions: For 250 mg dose pack: take 500 mg today (day 1), then 250 mg for 4 days (days 2-5) PO buspirone 30 mg tablet 30 mg PO BID Patient Comments: reports she is taking 60mg BID lisinopril 20 mg Tablet 20 mg PO DAILY divalproex [Depakote] 500 mg Tablet,Delayed Release (Dr/Ec) 1,000 mg PO HS risperidone [Risperdal] 2 mg Tablet 6 mg PO QHS spironolactone 25 mg Tablet 25 mg PO DAILY Qty: 30 0RF melatonin 10 mg capsule 10 mg PO HS prazosin 5 mg capsule 10 mg PO QHS Patient Comments: TAKE TWO CAPSULES BY MOUTH EVERY EVENING AT BEDTIME pregabalin 75 mg capsule 75 mg PO TID Patient Comments: TAKE ONE CAPSULE BY MOUTH THREE TIMES A DAY DIRECTED FOR CHRONIC NERVE PAIN Nucala 100 mg/mL auto-injector SUBCUT Patient Comments: PT STATES NOT TAKING risperidone 3 mg tablet 3 mg PO BID Patient Comments: TAKE ONE TABLET BY MOUTH TWICE A DAY ibuprofen 800 mg tablet 800 mg PO BID PRN PRN Patient Comments: TAKE ONE TABLET BY MOUTH TWICE A DAY NEEDED furosemide [Lasix] 20 mg tablet 20 mg PO DAILY Qty: 14 0RF albuterol sulfate 2.5 mg /3 mL (0.083 %) solution for nebulization 2.5 mg inhalation Q4H PRN PRN albuterol sulfate 90 mcg/actuation HFA aerosol inhaler 2 puff inhalation Q6H PRN PRN (Reason: shortness of breath or wheezing) lorazepam 0.5 mg tablet 0.5 mg PO BID PRN Patient Comments: TAKE ONE TABLET BY MOUTH EVERY DAY NEEDED FOR SEVERE ANXIETY sertraline 100 mg tablet 150 mg PO DAILY Patient Comments: TAKE ONE AND ONE-HALF TABLETS BY MOUTH EVERY DAY atomoxetine 18 mg capsule 18 mg PO DAILY Patient Comments: TAKE ONE CAPSULE BY MOUTH EVERY MORNING, TAKE WITH 80MG FOR TOTAL OF 98MG DAILY atomoxetine 80 mg capsule 80 mg PO DAILY Patient Comments: TAKE ONE CAPSULE BY MOUTH EVERY DAY WITH 18MG TO MAKE A TOTAL OF 98MG DAILY (DME) blood-glucose meter [[employer] Verio Flex meter] [facility] MISCELLANEOUS Patient Comments: USE DIRECTED DAILY (DME) [employer] Verio test strips Strip MISCELLANEOUS Patient Comments: USE ONE STRIP VIA METER EVERY DAY (DME) nebulizer and compressor [Comp-Air Nebulizer Compressor] Device MISCELLANEOUS Patient Comments: USE DIRECTED Januvia 100 mg tablet 100 mg PO DAILY Patient Comments: TAKE ONE TABLET BY MOUTH EVERY DAY DIRECTED FOR DIABETES (DME) lancets [[employer] Delica Plus Lancet] 33 gauge misc MISCELLANEOUS Patient Comments: USE ONCE EVERY DAY cyclobenzaprine 5 mg tablet 5 mg PO BID Discharge Instructions Additional Instructions: You were seen in the emergency department for your thoughts of self-harm. No medications were changed during your ED observation. You were transferred to [facility].
[2025-10-31] MEDS: busPIRone 15 MG TAB 30 MG PO (08:40)
[2025-10-31] MEDS: Calcium 600mg/Vit D 200U TAB 1 TAB PO (08:40)
[2025-10-31] MEDS: Cyclobenzaprine 10 MG TAB 5 MG PO (08:41)
[2025-10-31] MEDS: Empaglifozin 25 MG TAB PO (08:42)
[2025-10-31] MEDS: Pregabalin 50 MG CAP PO ×2 (08:42→15:04)
[2025-10-31] MEDS: Lisinopril 20 MG TAB PO (08:42)
[2025-10-31] MEDS: Furosemide 20 MG TAB PO (08:42)
[2025-10-31] MEDS: Sertraline 100 MG TAB 150 MG PO (08:43)
[2025-10-31] MEDS: Pregabalin 25 MG CAP PO ×2 (08:43→15:04)
[2025-10-31] MEDS: risperiDONE 1 MG TAB 3 MG PO (08:43)
[2025-10-31] MEDS: SITagliptin 100 MG TAB PO (08:44)
[2025-10-31] MEDS: Tiotropium Bromide-Respimat 10 PUFF INH 2 PUFF IH (08:44)
[2025-10-31] MEDS: Spironolactone 25 MG TAB PO (08:44)
--- NOTE | 2025-10-31 09:22 | CMSP_ITS ---
Date of service: 10/31/25 Time of Service: 09:22 Care Management Safety Plan Status Status: Voluntary Reason for Wait Reason for Wait: Inpatient Admission Safety Plan Safety Plan: VOLUNTARY FOR INPATIENT PSYCHIATRIC STABILIZATION. Patient is appropriate in all interactions since arriving at [facility]; Pt has demonstrated appropriate coping and communication skills, has articulated his or her needs and concerns and is fully engaged during staff interactions. Safety plan has been established with patient, and care team, to adhere to patient goals, identify restrictions based on behavioral status, address nutrition, and determine allowed personal belongings, tools for hygiene and personal care. Determine level of activity including ambulation, level of supervision, visitors, and determine privileges based on behaviors and level of engagement by pt. VOLUNTARY SAFETY PLAN: 1. Will remain on suicide precautions, in paper clothes. 2. Will remain in Zone B under direct supervision of one-on-one staff at all times provided by [employer]; MARLEE, GROUP SALES COORDINATOR doctor of naprapathic medicine. 3. May have paper cups, plates, finger foods as well as a cardboard spoon with which to eat meals. 4. Follow [facility] Management of the Admitted Behavioral Health Patient policy. 5. Shower available in Zone B without restriction. 6. Personal belongings-soft items permitted at RN discretion. 7. Visitors- supportive visitors, at RN discretion. 8. Activities: soft cart items approved per RN discretion. 9. Bathroom available in Zone B without restriction. 10. Phone: limited to [facility] cordless phone at RN discretion. Due to VOLUNTARY status, if patient wishes to leave [facility], staff will contact [facility] Crisis Screener ([phone]) and Stores Clerk ([phone]) as soon as possible. In the event of elopement, notify [facility] Police ([phone]). Patient is currently voluntarily at [facility] and seeking inpatient admission when a bed becomes available. [facility] Frontline Junior Software Developer will continue seeking placement. Please contact the Stores Clerk ([phone]) and [facility] Junior Software Developer ([phone]) for any needed changes in the Safety Plan. Safety plan has been provided to interdepartmental care team.
--- NOTE | 2025-10-31 09:22 | PDOC.CMSAFE ---
Date of service: 10/31/25 Time of Service: 09:22 Care Management Safety Plan Status Status: Voluntary Reason for Wait Reason for Wait: Inpatient Admission Safety Plan Safety Plan: VOLUNTARY FOR INPATIENT PSYCHIATRIC STABILIZATION. Patient is appropriate in all interactions since arriving at [facility]; Pt has demonstrated appropriate coping and communication skills, has articulated his or her needs and concerns and is fully engaged during staff interactions. Safety plan has been established with patient, and care team, to adhere to patient goals, identify restrictions based on behavioral status, address nutrition, and determine allowed personal belongings, tools for hygiene and personal care. Determine level of activity including ambulation, level of supervision, visitors, and determine privileges based on behaviors and level of engagement by pt. VOLUNTARY SAFETY PLAN: 1. Will remain on suicide precautions, in paper clothes. 2. Will remain in Zone B under direct supervision of one-on-one staff at all times provided by [employer]; MARLEE, SILK SCREEN PRINTER MACHINE department store general manager. 3. May have paper cups, plates, finger foods as well as a cardboard spoon with which to eat meals. 4. Follow [facility] Management of the Admitted Behavioral Health Patient policy. 5. Shower available in Zone B without restriction. 6. Personal belongings-soft items permitted at RN discretion. 7. Visitors- supportive visitors, at RN discretion. 8. Activities: soft cart items approved per RN discretion. 9. Bathroom available in Zone B without restriction. 10. Phone: limited to [facility] cordless phone at RN discretion. Due to VOLUNTARY status, if patient wishes to leave [facility], staff will contact [facility] Crisis Screener ([phone]) and Manager Case ([phone]) as soon as possible. In the event of elopement, notify [facility] Police ([phone]). Patient is currently voluntarily at [facility] and seeking inpatient admission when a bed becomes available. [facility] Frontline Commercial Property Manager will continue seeking placement. Please contact the Manager Case ([phone]) and [facility] Commercial Property Manager ([phone]) for any needed changes in the Safety Plan. Safety plan has been provided to interdepartmental care team.
--- NOTE | 2025-10-31 12:13 | CMPROGNOTE_ITS ---
Date of service: 10/31/25 Time of Service: 12:13 Care Management Progress Note Progress Note Text Progress Note Text: CM huddled with ED RN, PUBLIC HEALTH SOCIAL WORKER, studio operations engineer in charge, and [facility] ES clinician. Per [facility], Cecilia continues to feel suicidal with a plan to either cut her wrists or us carbon monoxide to end her life. Per RN, Cecilia has been appropriate in interactions; she stayed in the ED overnight due to her overnight O2 needs. [facility] is sending referrals to facilities and will follow up with them. Cecilia is voluntary, seeking inpatient psychiatric care. Safety plan in place. CM received a call from [facility] stating that Cecilia has been accepted at [facility] for inpatient psychiatric care, but they are requesting a PA from her insurance company prior to us setting up transport. [facility] stated that they are working on obtaining a PA. CM reached out to admissions at [facility], to inquire about setting up transport while the PA is in process; [facility] hesistantly agreed to transport being set up, after a discussion about holding up an acute transfer for payment. Within an hour, [facility] had obtained a PA, and provided the information to [facility]. Transport was arranged by ED staff via [employer] [facility] [employer]. CM will continue to follow. Social Determinants of Health Screening Will the Patient Participate in the Screening?: Unable to obtain
--- NOTE | 2025-10-31 12:13 | PDOC.CMPRO ---
Date of service: 10/31/25 Time of Service: 12:13 Care Management Progress Note Progress Note Text Progress Note Text: CM huddled with ED RN, SCHOOL OF NURSING DIRECTOR, charge coordinator, and [facility] ES clinician. Per [facility], Cecilia continues to feel suicidal with a plan to either cut her wrists or us carbon monoxide to end her life. Per RN, Cecilia has been appropriate in interactions; she stayed in the ED overnight due to her overnight O2 needs. [facility] is sending referrals to facilities and will follow up with them. Cecilia is voluntary, seeking inpatient psychiatric care. Safety plan in place. CM received a call from [facility] stating that Cecilia has been accepted at [facility] for inpatient psychiatric care, but they are requesting a PA from her insurance company prior to us setting up transport. [facility] stated that they are working on obtaining a PA. CM reached out to admissions at [facility], to inquire about setting up transport while the PA is in process; [facility] hesistantly agreed to transport being set up, after a discussion about holding up an acute transfer for payment. Within an hour, [facility] had obtained a PA, and provided the information to [facility]. Transport was arranged by ED staff via [employer]. CM will continue to follow. Social Determinants of Health Screening Will the Patient Participate in the Screening?: Unable to obtain
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
[2025-10-31] MEDS: LORazepam 1 MG TAB PO (17:14)
== END 2025-10-31 17:22 ==
PROVIDERS: Student in an Organized Health Care Education/Training Program; Emergency Provider Emergency Medicine; PCP Nurse Practitioner Family
DX: R44.0 Auditory hallucinations (principal); R45.851 Suicidal ideations; E11.9 Type 2 diabetes mellitus without complications
CPT/HCPCS: 99285 ×2; 36415 ×2; 82962; 00123; 80053; 80307; 93005; 96127; G0378; 80164; 80320; 80329; 83735; 85025; 85610; 85730; 93010; J3490